=== PATIENT | male | born 1950 | race Caucasian/White ===

== ENCOUNTER → 2017-12-24 10:05 | Outpatient (CLI) | payer SELFPAY ==
--- NOTE | 2017-12-24 10:10 | ECHOCS_ITS ---
Reason For Study: valve replacement - evaluation Procedure This was a 2D Doppler, Color Flow transthoracic echocardiogram. The study was technically difficult. PT was unable to stay awake for exam, unable to stay in position for imaging. Exam performed in department. Left Ventricle Mild concentric left ventricular hypertrophy. The estimated ejection fraction is 65 %. No regional wall motion abnormalities noted. Right Ventricle Normal size and thickness. Normal systolic function. Atria The left atrium is severely enlarged. The right atrium is severely enlarged. Normal atrial septum. Mitral Valve Mild diffuse mitral valve thickening. Mild mitral annular calcification extending into the posterior leaflet. Tricuspid Valve Normal tricuspid valve. Mild (1+) eccentric tricuspid valve insufficiency. Right ventricular systolic pressure estimated to be 45 mmHg. Moderate pulmonary hypertension. Aortic Valve Trisinus/trileaflet aortic valve. Severe diffuse aortic valve thickening. Severe diffuse aortic valve calcification. Severe aortic stenosis. Peak aortic valve gradient 59 mmHg. Mean aortic valve gradient 34 mmHg. Calculated aortic valve area (continuity equation) is 0.59 cm2. Mild (1+) aortic valve insufficiency. Pulmonic Valve Normal pulmonic valve. Great Vessels Normal aortic root. Normal arch. The inferior vena cava is dilated. Inferior vena cava collapse with respiration. Pericardium/Pleural No pericardial effusion. Medication 22 gauge I.V. with prn adaptor inserted into right arm. Diluted definity 2.0ml given slow IV push to enhance endocardial definition. MMode/2D Measurements & Calculations LVIDd: 4.3 cm IVSd: 1.3 cm LVOT diam: 2.0 cm LVIDs: 3.2 cm LVPWd: 1.2 cm LVOT area: 3.2 cm2 RVDd: 3.5 cm FS: 26.9 % Ao root diam: 3.2 cm LAV(MOD-bp): 124.9 ml LA A4 area: 29.5 cm2 LA dimension: 4.8 cm LAV(MOD-bp) Indexed: 56.6 ml/m2 LAV(MOD-sp2): 128.1 ml LAV(MOD-sp4): 113.9 ml RA A4 area: 36.5 cm2 Doppler Measurements & Calculations MV E max miguel: 122.1 cm/sec Ao V2 max: 371.3 cm/sec AI max miguel: 346.8 cm/sec Ao max P.2 mmHg AI max P.1 mmHg Ao V2 mean: 275.3 cm/sec AI dec slope: 192.3 cm/sec2 Ao mean P.9 mmHg AI P1/2t: 528.2 msec Ao V2 VTI: 75.5 cm ABDIRASHID(I,D): 0.58 cm2 ABDIRASHID(V,D): 0.61 cm2 LV V1 max: 70.3 cm/sec SV(LVOT): 43.5 ml PA V2 max: 59.6 cm/sec LV V1 max P.0 mmHg LV V1 mean P.0 mmHg LV V1 mean: 48.2 cm/sec LV V1 VTI: 13.6 cm TR max miguel: 264.3 cm/sec TR max P.0 mmHg Interpretation Summary The estimated ejection fraction is 65 %. The left atrium is severely enlarged. The right atrium is severely enlarged. Mild concentric left ventricular hypertrophy. Mild (1+) eccentric tricuspid valve insufficiency. Right ventricular systolic pressure estimated to be 45 mmHg. Moderate pulmonary hypertension. Severe aortic stenosis. Peak aortic valve gradient 59 mmHg. Mean aortic valve gradient 34 mmHg. Calculated aortic valve area (continuity equation) is 0.59 cm2. Mild (1+) aortic valve insufficiency. The study was technically difficult. Contrast injection was performed. There is no comparison study available. Ordering Physician: Zach Ramirez Referring Physician: Zach Ramirez Performed By: Miriam Rogers, HECTOR, RVT
--- OUTSIDE RECORDS SUMMARY | 2017-12-24 10:53 | XMS RPT_ITS ---
:1950 Author Organization OHIP Support Name Relationship Address Phone [facility] Unavailable [address] + [facility] [place] [address] Carina KYLE MIKHAIL Unavailable [address] + [place] [address] PATRICK KYLE Unavailable [address] + [place] [address] [employer] Unavailable [address] + [place] [address] Carina KYLE MIKHAIL Unavailable [address] + [place] [address] PATRICK KYLE Unavailable [address] + [place] [address] PATRICK KYLE Unavailable . +. [place] [address] U Unavailable Unavailable Unavailable U Unavailable Unavailable Unavailable [facility] Unavailable [address] + [place] [address] MIKHAIL KYLE Unavailable [address] + [place] [address] LUCILA SHAH Unavailable [address] + [place] [address] [facility] Unavailable [address] + [facility] [place] [address] ANNE KYLEOMI Unavailable [address] + [facility] [place] [address] SHAH, LUCILA Unavailable [address] + [place] [address] Care Team Providers Name Role Phone JENSENANGELA JENSEN Attending Unavailable SHIVA CARDENAS ([facility]) Referring Unavailable SOLORIO, MACHO L Referring Unavailable SOLORIO, MACHO L Attending Unavailable SOLORIO, MACHO L Referring Unavailable MARQUISE GR Attending Unavailable BALDO CORTES Referring Unavailable SOLORIO, MACHO L Referring Unavailable SOLORIO, MACHO L Referring Unavailable SOLORIO, MACHO L Attending Unavailable SOLORIO, MACHO L Referring Unavailable SOLORIO, MACHO L Referring Unavailable SOLORIO, MACHO L Attending Unavailable SOLORIO, MACHO L Referring Unavailable SOLORIO, MACHO L Referring Unavailable SOLORIO, MACHO L Referring Unavailable SOLORIO, MACHO L Referring Unavailable Gosia Payton Attending Unavailable Solorio, Macho Primary Care Unavailable Lety Hassan Attending Unavailable Solorio, Macho Primary Care Unavailable Michelle Miguel Attending Unavailable Zach Ramirez Attending Unavailable Solorio, Macho Referring Unavailable Zach Ramirez Attending Unavailable Zach Ramirez Referring Unavailable Solorio, Macho Primary Care Unavailable Zach Ramirez Attending Unavailable Zach Ramirez Referring Unavailable Solorio, Macho Primary Care Unavailable PROBLEMS PROBLEMS DATE TYPE CONDITION / CODE ATTENDING STATUS SOURCE 12/23/2017 Unknown 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 Ramirez Active [facility] (current) use of Community anticoagulants / Hospital Z79.01(ICD-10) Repository 12/23/2017 Unknown E66.9 - Obesity, Zach Ramirez Active [facility] unspecified / Community E66.9(ICD-10) Hospital Repository 12/23/2017 Unknown F17.200 - Nicotine Zach Ramirez Active [facility] dependence, Community unspecified, Hospital uncomplicated / Repository F17.200(ICD-10) 12/23/2017 Unknown I35.0 - Nonrheumatic Zach Ramirez Active [facility] aortic (valve) Community stenosis / Hospital I35.0(ICD-10) Repository 12/23/2017 Unknown E78.5 - Zach Ramirez Active [facility] Hyperlipidemia, Community unspecified / Hospital E78.5(ICD-10) Repository 12/23/2017 Unknown I50.32 - Chronic Zach Ramirez Active [facility] diastolic [facility] (congestive) heart Hospital failure / Repository I50.32(ICD-10) 12/23/2017 Unknown I48.2 - Chronic Zach Ramirez Active [facility] atrial fibrillation Community / I48.2(ICD-10) Hospital Repository 12/23/2017 Unknown R60.9 - Edema, Zach Ramirez Active [facility] unspecified / Community R60.9(ICD-10) Hospital Repository 12/23/2017 Unknown R06.00 - Dyspnea, Zach Ramirez Active [facility] unspecified / Community R06.00(ICD-10) Hospital Repository 12/23/2017 Unknown R06.01 - Orthopnea / Zach Ramirez Active [facility] R06.01(ICD-10) [facility] Hospital Repository 02/02/2017 Active Type 2 diabetes NA Active [facility] mellitus with Clinic Main diabetic nephropathy [place] / E11.21(ICD-10) Repository 08/05/2017 Active Hyperlipidemia, NA Active [facility] unspecified / Clinic Main E78.5(ICD-10) [place] Repository 02/02/2017 Active Unknown / NA Active [facility] UNK([facility] Main Unknown) [place] Repository 01/28/2017 Active Type 2 diabetes NA Active [facility] mellitus without Clinic Main complications / [place] E11.9(ICD-10) Repository 01/06/2017 Unknown PERSONAL HISTORY OF Cebul, Lety Active [facility] MALIGNANT NEOPLASM Community OF ESOPHAGUS / Hospital Z85.01(ICD-10) Repository 01/06/2017 Unknown GASTRITIS, Cebul, Lety Active [facility] UNSPECIFIED, WITHOUT Community BLEEDING / Hospital K29.70(ICD-10) Repository 01/06/2017 Unknown DVRTCLOS OF LG INT Cebul, Lety Active [facility] W/O PERFORATION OR Community ABSCESS W/O BLEEDING Hospital / K57.30(ICD-10) Repository 01/06/2017 Unknown NONRHEUMATIC AORTIC Cebul, Lety Active [facility] (VALVE) STENOSIS / Community I35.0(ICD-10) Hospital Repository 01/06/2017 Unknown UNSPECIFIED ATRIAL Cebul, Lety Active [facility] FIBRILLATION / Community I48.91(ICD-10) Hospital Repository 01/06/2017 Unknown HEART FAILURE, Cebul, Lety Active [facility] UNSPECIFIED / Community I50.9(ICD-10) Hospital Repository 01/06/2017 Unknown HYPERLIPIDEMIA, Cebul, Lety Active [facility] UNSPECIFIED / Community E78.5(ICD-10) Hospital Repository 01/06/2017 Unknown OBSTRUCTIVE SLEEP Cebul, Lety Active [facility] APNEA (ADULT) Community (PEDIATRIC) / Hospital G47.33(ICD-10) Repository 01/06/2017 Unknown CLINICAL LIAISON (CURRENT) CarolbuLety pacheco Active [facility] USE OF Community ANTICOAGULANTS / Hospital Z79.01(ICD-10) Repository 01/06/2017 Unknown OTHER CLINICAL LIAISON Lety Hassan Active [facility] (CURRENT) DRUG Community THERAPY / Hospital Z79.899(ICD-10) Repository 01/06/2017 Unknown NICOTINE DEPENDENCE, Lety Hassan Active [facility] OTHER TOBACCO Community PRODUCT, Hospital UNCOMPLICATED / Repository F17.290(ICD-10) PROCEDURES PROCEDURES No Procedure Records FoundRESULTS RESULTS CBC W/DIFF, AUTOMATED Collected: 12/22/2017 Status: F Source: [place] 4:04 PM [facility] REPOSITORY TYPE CODE TESTS RESULT OUT OF RANGE REFERENCE UNITS LAB L100.1000 Normal 4.4-11.0 K/mm3 WBC 7.2 LAB L100.1200 Low 4.6-6.2 M/mm3 RBC 4.34 LAB L100.1300 Normal 13.0-16.5 g/dl HGB 14.1 LAB L100.1400 Normal 40-54 % HCT 42.2 LAB L100.1500 High 80-94 fL MCV 97.2 LAB L100.1600 High 27.0-32.0 pg MCH 32.5 LAB L100.1700 Normal 32-36 g/gl MCHC 33.4 LAB L100.1810 High 11.6-14.6 % RDW 15.6 CV LAB L100.1820 High 35.1-43.9 fl RDW 53.8 SD LAB L100.1900 Normal 150-450 K/mm3 PLT 152 LAB L100.2000 High 6.2-12.0 fl MPV 12.5 LAB L100.2100 Normal 47-70 % NEUT% 62.7 LAB L100.2200 Normal 19-41 % LY% 21.4 LAB L100.2300 High 0-10 % MONO% 12.1 LAB L100.2400 Normal 0-5 % EO% 2.8 LAB L100.2500 Normal 0-1 % BASO% 0.7 LAB L100.2550 Normal 0.0-0.9 % IM 0.300 GRAN % Result Comment: IG% - Immature Granulocytes (promyelocytes, myelocytes andmetamyelocytes) > 1% indicates that a LEFT SHIFT is Present. LAB L100.2620 Normal 2.0-7.7 X10 3/uL Absolute Neut 4.5 LAB L100.2720 Normal 0.83-4.51 X10 3/ul Absolute Lymph 1.54 Performed By: #### L100.0100, L300.3900, L300.4310 ####[facility] [address] [place], [address] PROTHROMBIN TIME W/INR Collected: 12/22/2017 Status: F Source: [place] 4:04 PM [facility] REPOSITORY TYPE CODE TESTS RESULT OUT OF RANGE REFERENCE UNITS LAB L300.4150 High 11.7-14.9 SECONDS PROTIME 20.4 LAB L300.4200 Normal INR 1.7 Performed By: #### L100.0100, L300.3900, L300.4310 ####[facility] [address] [place], [place], [address] PARTIAL THROMBOPLAST Collected: 12/22/2017 Status: F Source: [place] TIME 4:04 PM [facility] REPOSITORY TYPE CODE TESTS RESULT OUT OF RANGE REFERENCE UNITS LAB L300.4310 Normal 24.1-36.2 Seconds PTT 35.4 Performed By: #### L100.0100, L300.3900, L300.4310 ####[facility] [address] [place], [address] BASIC METABOLIC Collected: 12/22/2017 Status: F Source: [place] PROFILE (BMP) 4:04 PM [facility] REPOSITORY TYPE CODE TESTS RESULT OUT OF RANGE REFERENCE UNITS LAB L501.0100 High 74-106 mg/dL GLU 174 Result Comment: Fasting Glucose result greater than or equal to 126 mg/ dLsuggests DIABETES MELLITUS per A.D.A. criteria.Please note revised GLUCOSE reference range /02/2018. LAB L501.1000 Normal 7-18 mg/dL BUN 14 LAB L501.1100 Normal 0.70-1.30 mg/dL CREAT,SERUM 1.17 Result Comment: The validity of the calculated GFR AND GFRAA in patients over70 years has not been determined. Clinical correlation isessential. LAB L501.1110 Normal >60 mL/min EST GFR 66 Result Comment: Non- GFR Calc LAB L501.1115 Normal >60 mL/min EST GFR - 80 AA Result Comment: GFR Calc LAB L501.1300 Normal 10-20 RATIO BUN/CRE 12.0 LAB L501.2200 Low 8.5-10.1 mg/dL CA 8.4 LAB L501.5300 Normal 136-145 mmol/L NA 138 LAB L501.5600 Normal 3.5-5.1 mmol/L K 4.1 LAB L501.5900 Normal 98-107 mmol/L CL 99 LAB L501.6100 Normal 21.0-32.0 mmol/L CO2 32.0 LAB L501.6200 Normal 5-15 GAP 7 Performed By: #### L500.2500, L500.3400, L500.4100 ####[facility] [address] [place], [address] LIVER PROFILE Collected: 12/22/2017 Status: F Source: [place] 4:04 PM [facility] REPOSITORY TYPE CODE TESTS RESULT OUT OF RANGE REFERENCE UNITS LAB L501.1500 Normal 6.4-8.2 g/dL T 8.0 PROT LAB L501.1800 Normal 3.2-5.0 g/dL ALB 3.3 LAB L501.1950 High 2.2-4.2 g/dL GLOB 4.7 LAB L501.4100 Normal 15-37 U/L AST 22 LAB L501.4305 Normal 45-117 U/L ALK P 81 LAB L501.4405 Normal 16-61 U/L ALT 24 LAB L501.4600 Normal 0.20-1.00 mg/dL T 1.00 BILI LAB L501.4700 Normal 0.00-0.30 mg/dL D 0.27 BILI Performed By: #### L500.2500, L500.3400, L500.4100 ####[facility] [address] [place], [address] LIPID PROFILE Collected: 12/22/2017 Status: F Source: [place] 4:04 PM [facility] REPOSITORY TYPE CODE TESTS RESULT OUT OF RANGE REFERENCE UNITS LAB L501.4900 Normal 200 mg/dL CHOL 161 Result Comment: <200 mg/dL Desirable 200-240 mg/dL Borderline >240 mg/dL High Risk LAB L501.5000 Normal mg/dL TRIG 84 Result Comment: The drugs N-Acetylcysteine and Metamizole may falselydepress this assay.Serum Triglycerides Reference Interval Normal <150 mg/dL Borderline high 150 - 199 mg/ dL High 200 - 499 mg/dL Very High > or = 500 mg/dL LAB L501.6400 Low mg/dL HDL 35 Result Comment: The drugs N-Acetylcysteine and Metamizole may falselydepress this assay. Reference Range HDL <40 mg/dL Low HDL Cholesterol HDL >or= 60 mg/dL High HDL Cholesterol LAB L501.6500 Normal 0-130 mg/dL LDL 109 LAB L501.6600 Normal 5-40 mg/dL VLDL 17 Performed By: #### L500.2500, L500.3400, L500.4100 ####[facility] [address] [place], [address] CHEST PA AND LATERAL Observed: 12/22/2017 Status: F Source: [place] 3:49 PM [facility] [address] [place], [place] [address]Ocanp PA and LateralMR#: [id number] Acct: [id number]: JAYDE KYLE Jr. Rep #: [id number] : 1950 M 67 From: Robles Ugarte MDPCP: Macho Faria DO Status: PRE CLIStudy: Chest PA and Lateral Date of Exam: 12/22/17Exam# [id number] Ordering Dr: Zach Ramirez MDSTUDY: X-RAY CHESTREASON FOR EXAM: Male, 67 years old. Preoperative heart catheterization.History of atrial fibrillation. History of esophageal cancer withradiation and chemotherapy.TECHNIQUE: PA and lateral chestCOMPARISON: None. FINDINGS:Mild cardiomegaly.Normal mediastinal silhouette, ines and pleural margins.Prominent elevation of left hemidiaphragm. Associated with mild left lungbase atelectasis.Mild generalized interstitial prominence of the lungs, chronic. Acutelythe lungs appear clear. There is some hyperlucency at the apices which mayreflect underlying COPD. Correlate smoking history.There is no dense focal infiltrate, effusion, pneumothorax or focallysuspicious lesion.No acute osseous process. Mild scoliosis. Osteopenia. Mild thoracicdegenerative disc disease. RAD/Chest PA and LateralIMPRESSION:No acute cardiopulmonary process.Electronically Signed:Robles Ugarte, at 10:57 EDTTel , Service support , TJ: Zach Ramirez MD; Macho Faria DO Janitor Helper:Signed CARDIOLOGY VISIT Observed: 12/22/2017 Status: F Source: [place] REPORT 2:58 PM [facility] REPOSITORY [facility] [address] [facility]. [address] [place] [address] [phone] VISITDate of Service: 12/22/17MR#: [id number] Acct: [id number]: JAYDE KYLE Rep #: [id number]: 1950 Provider: Mauricio Jarrett/Sex: 67/M [facility] SignedIHPIChi Complaint: Atrial fibrillation, aortic stenosis, establishment of careDetails: Mr. Kyle is a very pleasant 67-year-old currently smoking gentleman,402-bsaw-kcle history, diabetic, atrial fibrillation, occasional alcohol, no previous known ordiagnosed coronary artery disease or CVA. Patient was diagnosed with atrial fibrillationaround 2009 at which time he was placed on Coumadin therapy and his diabetes was discovered aswell. In 2012 the patient was diagnosed with esophageal cancer which apparently wasnonoperative and underwent x-ray therapy and chemotherapy. His hematology oncologist is , and according to the patient he has been followed and apparently has had no recurrence.In 2012 he was diagnosed with aortic stenosis and was referred to Dr. Richmond. Apparently hewas told that his aortic stenosis was not too bad at that time. His most recent echocardiogramdated 10/01/16 however showed that his ejection fraction was normal at 65%, he had severe leftand right atrial enlargement, severe aortic stenosis with an estimated aortic valve area of 0.5cm with a peak and mean gradient of 57 and 34 mmHg respectively. He had trivial MR and 1+ TRand AI.Over the last several months the patient has had progressively worsening fatigue, shortness ofbreath, and 2 episodes of positional lightheadedness and dizziness where he almost faintedrequiring him to go to the ground at which time his symptoms resolved. He denies any anginalsymptoms. In addition he has been intermittently taking his Lasix, only when he has orthopneaor PND. He is consequently developed significant lower extremity edema and is here forevaluation. He does report that he is compliant with his medications.In our office today's blood pressure is 102/60, pulse is 86 and regular. His physical examdemonstrates 1-2+ carotid upstroke bilaterally, irregularly irregular rhythm, normal S2, a 3/6high-pitched crescendo decrescendo systolic murmur best heard at the lower left sternal borderand radiating to the carotids and clavicles. He has 2 + bilateral lower extremity edema abovehis knees. Lipids are pending. EKG dated 11/13/16 shows atrial fibrillation with right axisdeviation, possible old anterolateral wall myocardial infarction.IntakeVital Signs12/22/17 Height 5 ft 10 inIntakeVisit Reasons: SOB/EDEMA/FATIGUE/SELF REF.AllergiesNo Known Allergies Allergy (Unverified 12/22/17 14:01)Medicationsdiltiazem CD 120 mg capsule,extended release 24 hr 120 mg PO QDAY 12/21/17 [History Gkarciltb49/22/18]warfarin 5 mg tablet 5 mg PO QDAY tab 12/21/17 [History Confirmed 12/22/17]cardio Plus PO 12/22/17 [History Confirmed 12/22/17]cardio trophins PO TID 12/22/17 [History Confirmed 12/22/17]cataplex PO 12/22/17 [History Confirmed 12/22/17]furosemide 40 mg tablet 40 mg PO QDAY #30 tab 12/22/17 [Rx Confirmed 12/22/17]intenzyme forte PO 12/22/17 [History Confirmed 12/22/17]organically bound minerals PO 12/22/17 [History Confirmed 12/22/17]PFSHFamily History Mother CVA (cerebral vascular accident)Father CVA (cerebral vascular accident)Sister DiabetesBrother Heart diseaseSocial HistorySmoking Status: Current some day smokerROSConstConst: Positive for weakness and fatigue;negative for difficulty sleeping, frequent falls, headache(s) or excessive sweatingEyesEyes: Negative for loss of peripheral vision, transient loss of vision, blurry vision or doublevisionENTENT: Negative for Nosebleed/epistaxis, dizziness, headache(s) or balance problemsCardioChest Pain: NoEdema: Bilateral (BLE from knees down. Compression stockings in place)Muscle aches with walking: NoneRespRespiratory: Positive for SOB with activity;negative for SOB at rest, SOB orthopnea\SOB lying down or paroxysmal nocturnal dyspneaGIGI: Negative nausea or heartburnGUGU: Negative for hematuriaMuscMusc: Positive for muscle weakness (BLE with ambulation);negative for muscle aches/ myalgia, joint pain or balance problemsSkinSkin: Negative non- healing lesions, unusual bruising or rashNeuroNeuro: Positive for weakness;negative for blurry vision, dizziness, lightheadedness, orthostatic symptoms, double vision,frequent falls or headache(s)HemaHematologic/Lymphatic: Negative for easy bruisingEndoEndo: Positive for fatigue;negative for excessive sweating or increased thirst/drinkingPsychPsych: Negative for anxiety or depressionAllergyAllergy/Immunology: Negative for hives, Negative for rashCardiology ExamConstAppearance: cooperative, healthy appearing and no acute distressNutritional Appearance: well nourishedOrientation: alert, oriented x3 and oriented to personHeadHead: normal to inspection, atraumatic and normocephalicNose: external nose normalFace and Sinus: face symmetricMouth: oral mucosae normalEyesGeneral: appearance normal, both eyes and all related structuresEyelids: eyelids normalConjunctivae : conjunctivae normalPupils: PERRL and normal by confrontationEOM: EOM intact bilaterallyNeckNeck: normal visual inspection and full ROMCarotids: normal carotid upstrokeChestChest inspection: normal inspection of the chestAuscultation: Bilateral: Clear to AuscultationCardioPalpation: normal PMIRate: regular rateRhythm: irregularly irregularHeart sounds: S2 normalMurmur: crescendo-decrescendo, Grade 3/6, LVOT and loudGIGI: normal to inspection, no hepatosplenomegaly and bowel sounds presentNeuroGeneral: alert, oriented x3, awake, CN's II-XI intact bilaterally and moves all extremitiesSkinSkin: no rashes or lesions notedExtremitiesPulses: Normal: Right Femoral Pulse, Left Femoral Pulse, Right Dorsalis Pedis Pulse, LeftDorsalis Pedis Pulse, Right Posterior Tibial Pulse, Left Posterior Tibial Pulse, Right RadialPulse, Left Radial PulseLower Extremity Edema: None: BilateralPsychPsychological: normal affectAssessment AND Plan1. Non-rheumatic aortic stenosis I35.0Plan1. Aortic stenosis: The patient has signs and symptoms of feeling medical therapy in the faceof severe aortic stenosis as diagnosed by echocardiogram in 2017. He has worsening lowerextremity edema, fatigue, shortness of breath and positional lightheadedness and dizziness.His estimated aortic valve area was 0.57 cm .At this point I recommended the patient undergo a repeat 2D echo with Doppler to establish hisLV function, valvular status and to evaluate his other valves for possible aortic valvereplacement or T AVR. I would not recommend ELIO at this time given the patient's history ofesophageal cancer requiring chemotherapy and x-ray therapy.In addition I recommend he undergo a left and right heart catheterization with bridging withLovenox to determine if he needs concomitant bypass surgery or just simply aortic valvereplacement. If he requires no coronary bypass, I recommend referring him to [facility] for T AVR. If he requires both aortic valve replacement and T AVR [facility] the local hospitals.I had a long and thorough discussion with the patient and explained the risks/benefits of theprocedure to he and his family and they have agreed to proceed. Would not recommend Plavix atthis time as we do not have plans for PCI at this time.In addition he will start Lasix 40 mg p.o. daily and attempt to reduce his lower extremityedema. He will return office in 2 weeks time for a blood pressure check.OrdersOrders:2. Hyperlipidemia E78.5Plan2. Hyperlipidemia: Given the patient's risk factors recommend aggressive LDL reduction.Recommend obtaining a lipid profile if not already done so.OrdersOrders:3. Chronic atrial fibrillation I48.2Plan3. Atrial fibrillation: Given the patient's aortic stenosis and atrial fibrillation and severebiatrial enlargement and I believe he requires bridging of his Coumadin with subcu Lovenox.Will make arrangements for instructions for subcu Lovenox. In the meantime he will continuehis diltiazem and Coumadin.4. Return office in 6 months.This note was generated using a voice recognition system and there may be incorrect words,spelling or punctuation that were not noted when reviewing the office note prior to saving.OrdersOrders:Plan DetailOther OrdersOrders:Other MedicationsNew:Discontinued:Follow Up+6M (Ramirez)+2 weeks (BP check) CodingLevel of Care CodeOff vis,new,level 4DiagnosesNon-rheumatic aortic stenosis I35.0Hyperlipidemia E78.5Chronic atrial fibrillation I48.2CodingLevel of Care CodeOff vis,new,level 4DiagnosesNon-rheumatic aortic stenosis I35.0Hyperlipidemia E78.5Chronic atrial fibrillation I48. 1458 <Electronically signed by Zach Ramirez MD>Date [facility] Ramirez [facility] Signature: Date (if applicable)CC: Macho Faria DO 12 LEAD EKG PERFORMED Observed: 12/22/2017 Status: F Source: LISA BY MANUEL 2:03 PM [facility] REPOSITORY [place] [place], [place] [id number] Lead EKG performed by MANUEL12/22/17 1401#: [id number] Acct: [id number]: JAYDE KYLE Jr. Rep #: [id number]: 1950 67 From: Zach Ramirez MDAttalena Dr: Zach Ramirez MD Status: DEP AMBOrdering Dr: Zach Ramirez MD Date: 12/22/17Location: [facility] Sex: M CAdmitted: [facility]/12 Lead EKG performed by BMSAtrial fibrillation -irregular conduction Low voltage in limb leads. -Poor-wave progression -may be secondary to pulmonary disease consider oldnterior infarct. - Nonspecific T-abnormality. FAKYLAXM02/23/18 1415 <Electronically signed by Zach Ramirez MD>Date Zach Ramirez MDCC: Macho Faria DO Date Dictated: 12/22/17 1401Date Transcribed: 12/22/17 1401Transcriptionist:Signed PROGRESS Observed: 12/04/2017 Status: COMPLETED Source: [place] 3:09 PM [facility] REPOSITORY HNO ID: [id number]: Macho Solorio LService: (none) Author Type: PhysicianType: Progress NotesFiled: 12/04/2017 4:37 PMNote Text:Agree with belowMacho Solorio DO PROGRESS Observed: 12/04/2017 Status: COMPLETED Source: [place] 3:05 PM [facility] REPOSITORY HNO ID: [id number]: Dada Dos Santos RNService: (none)Author Type: (none)Type: Progress NotesFiled: 12/04/2017 3:07 PMNote Text:patient had inr completed at [facility] CCpatients inr is 2.7 (patients inr range is 2.0-3.0)patient is currently taking 6mg Mon,Wed,Fri and 5mg all other dayspatients last dose change was on 09/30/16 due to a low level of 1.5 (doseat that time was 6mg Mon,Fri and 5mg all other days)patient has had no changes in medication and no missed doses and no changein dietAdvised patient to continue on the same dose(s) and that they would onlybe contacted regarding dosage and follow up instructions after review withprovider, if a change is needed. Written instructions given and patientverbalized understanding. Presently scheduled in 4 weeks (pt will call toschedule) for follow up INR. PROGRESS Observed: 09/16/2017 Status: COMPLETED Source: [place] 4:04 PM [facility] REPOSITORY HNO ID: [id number]: Macho HernandezonService: (none) Author Type: PhysicianType: Progress NotesFiled: 09/16/2017 4:35 PMNote Text:Agree with Manjula Solorio DO PROGRESS Observed: 09/16/2017 Status: COMPLETED Source: [place] 3:39 PM [facility] REPOSITORY HNO ID: [id number]: Dada Dos Santos RNService: (none)Author Type: (none)Type: Progress NotesFiled: 09/16/2017 3:41 PMNote Text:patient had inr completed at [facility] CCpatients inr is 2.2 (patients inr range is 2.0-3.0)patient is currently taking 6mg Mon,Wed,Fri and 5mg all other dayspatients last dose change was on 09/30/16 due to a low level of 1.5 (doseat that time was 6mg Mon,Fri and 5mg all other days)patient has had no changes in medication and no missed doses and no changein diet.Advised patient to continue on the same dose(s) and that they would onlybe contacted regarding dosage and follow up instructions after review withprovider, if a change is needed. Written instructions given and patientverbalized understanding. Presently scheduled in 4 weeks (pt will call toschedule) for follow up INR. OBSOLETE Observed: 08/19/2017 Status: COMPLETED Source: [place] 12:00 AM [facility] REPOSITORY Refill (FAMPWS) ---------JAYDE KYLE ([id number]) 1950 MDate Time Provider Department08/19/17 SHIVA CARDENAS ([facility]) LALO During your visit today, we recorded the following information about you:Oralia Sandy DANGELO 08/19/2017 3:19 PM SignedUpcoming appointment: 02/10/18Medication request:Pending Prescriptions Disp Refills WARFARIN 1 MG TABLET 30 tablet 11 Sig: TAKE 1 TABLET ON MON, WED, FRI WITH 5MG TABLET (6MG TOTAL) MIKE: Yes Please review and advise.Allergies As of Date: 08/19/2017 Noted Allergy ReactionSEASONAL ALLERGIES 10/04/2012 8 - GI Upset Comments: headacheDate Reviewed: 08/05/2017Reviewed by: Kita Walker LPN - Fully AssessedReason for Visit: Refill Request [94]Order(s):warfarin (COUMADIN) 1 mg tabletTAKE 1 TABLET ON THU, WED, THU WITH 5MG TABLET (6MG TOTAL)Disp: 30 tabletRfl: 11Prescriptions as of 2017 Sig: WARFARIN 1 MG TABLET TAKE 1 TABLET ON THU, THU, FR* WARFARIN 5 MG TABLET TAKE 1 TABLET DAILY ON * METFORMIN ER 500 MG TABLET,EX* Take 1 tablet by mouth twice * DOXYCYCLINE MONOHYDRATE 100 M* Take 1 tablet by mouth twice * WARFARIN 5 MG TABLET TAKE 1 TABLET DAILY ON * COMPOUNDED PRESCRIPTION Organically Bound Minerals COMPOUNDED PRESCRIPTION Vitamin O dietary supplement COMPOUNDED PRESCRIPTION Cardio-Plus COMPOUNDED PRESCRIPTION Cardiotrophin PMG COMPOUNDED PRESCRIPTION Forever Arctic C COMPOUNDED PRESCRIPTION Cataplex E2 COMPOUNDED PRESCRIPTION Boswellia complex COMPOUNDED PRESCRIPTION Glucosamine Synergy FUROSEMIDE 20 MG TABLET Take 1 tablet by mouth once d* DILTIAZEM SR 120 MG 24 HR CAP Take 1 capsule by mouth once * WARFARIN 1 MG TABLET Take 6mg on Thursday, Thursday* WARFARIN 5 MG TABLET Take 6mg Thu,Thu,Thu,Sat,Sun * OTC PRODUCT [facility]: Take 4 capsules b* ALOE VERA ORAL Take 3 Tablespoonsful by mout*Problem List As Of Date 08/19/2017 Noted Resolved 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] INVALID FOR* Drug induced neutropenia [D70.2] INVALID FOR*11/23/2012 Atrial fibrillation [I48.91] INVALID FOR* 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] INVALID FOR* Hypercholesteremia [E78.00] INVALID FOR* Diabetes mellitus type 2 in nonobese (HCC) [E11*INVALID FOR* 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*INVALID FOR*07/06/2014 CHF (congestive heart failure) (HCC) [I50.9] INVALID FOR* Aortic stenosis [ I35.0] INVALID FOR* History of gastric cancer [Z85.028] INVALID FOR* Chronic atrial fibrillation (HCC) [I48.2] INVALID FOR* Chronic diastolic congestive heart failure ( HCC*INVALID FOR* Nonrheumatic aortic valve stenosis [I35.0] INVALID FOR* Positive for macroalbuminuria [R80.9] INVALID FOR* Screening for intestinal cancer [Z12.10] INVALID FOR* 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*INVALID FOR* Bilateral leg edema [R60.0] INVALID FOR* Varicose veins of both legs with edema [I83.893]INVALID FOR* Chronic anticoagulation [Z79.01] INVALID FOR* Aortic valve stenosis [I35.0] INVALID FOR* Cough [R05] INVALID FOR* Obesity, Class I, BMI 30-34.9 [E66.9] INVALID FOR*Prescriptions ordered this encounter Disp Refills Start End WARFARIN 1 MG TABLET 30 t* 11 08/21/2017 Sig: TAKE 1 TABLET ON THU, WED, THU WITH 5MG TABLET (6MG TOTAL)Medications Discontinued During This Encounter warfarin (COUMADIN) 1 mg tablet 30 t* 0 12/09/2016 08/21/2017 Sig: Take 6mg on Thursday, Thursday, and Fridays and 5mg the rest of the week Disc: Reason for discontinue is not on file. Status:Closed by MACHO SOLORIO DO on 08/21/17 HEMOGLOBIN A1C Collected: 08/05/2017 Status: F Source: [place] 3:12 PM [facility] TYPE CODE TESTS RESULT OUT OF REFERENCE UNITS RANGE LAB HGBA1C High 4.3-5.6 % Hemoglobin 9.1 A1c LAB HBA0 mg/dL Est. Average 214 Glucose Result Comment: eAG: (Estimated average glucose) is a calculated value from HgbA1c and is route sales representative of the average blood glucose level in the last 2-3 month period. Performed By: #### HBA1C, CBC, CMP, LIPB ####[facility] [address] [place], [place] [phone] CBC Collected: 08/05/2017 Status: F Source: [place] 3:12 PM [facility] REPOSITORY TYPE CODE TESTS RESULT OUT OF REFERENCE UNITS RANGE LAB WBC 3.70-11.00 k/uL WBC 8.44 LAB RBC 4.20-6.00 m/uL RBC 4.57 LAB HGB 13.0-17.0 g/dL Hemoglobin 14.3 LAB HCT 39.0-51.0 % Hematocrit 45.3 LAB MCV 80.0-100.0 fL MCV 99.1 LAB MCH 26.0-34.0 pG MCH 31.3 LAB MCHC 30.5-36.0 g/dL MCHC 31.6 LAB RDWCV High 11.5-15.0 % RDW-CV 15.8 LAB PLTCT 150-400 k/uL Platelet 225 Count LAB MPV 9.0-12.7 fL MPV 12.6 LAB ABSNUC <0.01 k/uL Absolute nRBC <0.01 Performed By: #### HBA1C, CBC, CMP, LIPB ####[facility] [address] [place], [place] [phone] COMP METABOLIC PANEL Collected: 08/05/2017 Status: F Source: [place] 3:12 PM [facility] REPOSITORY TYPE CODE TESTS RESULT OUT OF REFERENCE UNITS RANGE LAB TP 6.3-8.0 g/dL Protein, Total 7.7 LAB ALB Low 3.9-4.9 g/dL Albumin 3.7 LAB CA 8.5-10.2 mg/dL Calcium, Total 9.6 LAB TBIL 0.2-1.3 mg/dL Bilirubin, 0.8 Total LAB ALKP 36-108 U/L Alkaline 78 Phosphatase LAB AST 14-40 U/L AST 20 LAB GLU High 74-99 mg/dL Glucose 220 Result Comment: The [place] [employer] (ADA) provides guidance for cutoff values for fasting glucose and random glucose. The ADA defines fasting as no caloric intake for at least 8 hours. Fasting plasma glucose results between 100 to 125 mg/dL indicate increased risk for diabetes (prediabetes).Fasting plasma glucose results greater than or equal to 126 mg/dL meet the criteria for diagnosis of diabetes. In the absence of unequivocal hyperglycemia, results should be confirmed by repeat testing. In a patient with classic symptoms of hyperglycemia or hyperglycemic crisis, random plasma glucose results greater than or equal to 200 mg/dL meet the criteria for diagnosis of diabetes.Reference: Standards of Medical Care in Diabetes 2016 , [place] [employer] Association. Diabetes Care. 2016.39(Suppl 1). LAB BUN 9-24 mg/dL BUN 18 LAB CRET 0.73-1.22 mg/dL Creatinine 0.86 LAB NA 136-144 mmol/L Sodium 136 LAB K 3.7-5.1 mmol/L Potassium 4.6 LAB CL Low 97-105 mmol/L Chloride 95 LAB CO2 High 22-30 mmol/L CO2 32 LAB AGAP 9-18 mmol/L Anion Gap 9 LAB ALT 10-54 U/L ALT 18 LAB GFRAA eGFR- Amer. >60 LAB GFRNAA . eGFR-All Other Races >60 Result Comment: eGFR (Estimated GFR) Units of measure: mL/min/1.73 meters squaredeGFR is derived from the reexpressed MDRD Study equation using the following parameters: serum creatinine, age, gender and race. The creatinine assay has been calibrated to be traceable to IDMS.An eGFR <60 mL/min/1.73m2 for >3 months is consistent with chronic kidney disease. Refer to KDOQI guidelines for clinical interpretation.In patients with unstable renal function, e.g. those with acute kidney injury, the eGFR may not accurately reflect actual GFR. Performed By: #### HBA1C, CBC, CMP, LIPB ####[facility] [address] [place], [place] [phone] LIPID PANEL, BASIC Collected: 08/05/2017 Status: F Source: [place] 3:12 PM [facility] REPOSITORY TYPE CODE TESTS RESULT OUT OF REFERENCE UNITS RANGE LAB TRIGLY 30-149 mg/dL Triglyceride 98 LAB CHOL 100-199 mg/dL Cholesterol 180 LAB HDL Low >45 mg/dL HDL-Cholesterol 34 LAB VLDL 6-40 mg/dL VLDL Cholesterol 20 LAB LDL 60-129 mg/dL LDL-Cholesterol 126 LAB FT hrs Fasting Time 2 LAB TCHDL High 1.00-5.00 TC:HDL Ratio 5.29 LAB LDLHDL High 0.50-3.55 LDL:HDL Ratio 3.71 LAB NONHDL 90-159 mg/dL Non HDL 146 Cholesterol Performed By: #### HBA1C, CBC, CMP, LIPB ####[facility] [address] [place], [place] [phone] PROGRESS Observed: 08/05/2017 Status: COMPLETED Source: [place] 3:03 PM [facility] [place] REPOSITORY HNO ID: [id number]: Macho HernandezonService: (none) Author Type: PhysicianType: Progress NotesFiled: 08/05/2017 3:08 PMNote Text:Patient presents with:Follow Up: 3 monthsHPI:Jayde Kyle is a 67 year old male who presents to the office todayfor review of health conditions.Concerns today:Overall doing okay, admits to recent poor diet choices with increasedsugars and carbohydrates. Hx of albuminuria/nephropathy, hasn't had labsrechecked since January. No edema concerns- intermittent use of LasixChronic atrial fib, taking Coumadin as prescribed. Tolerating without SEconcerns. Chronic dyspnea with exertion unchanged.Mr. Kyle has past history of diabetes. Since our last visit hedenies excessive thirst or increased frequency of urination, chest pain ordyspnea , new or unusual visual symptoms and low sugar/hypoglycemicreactions. Follows a diabetic diet some of the time. He is compliantwith medication(s) and is tolerating med(s) without any side effects. Hereports checking his glucose on a infrequent to not at all basis schedulewith sugars in the fasting 110-160s range. Patient's last HgA1C wasHemoglobin A1C (%)Date Value01/28/2017 8. 6.8 )Last Ophthalmology exam was >12 months agoMr. Kyle reports history of hyperlipidemia. Current therapyincludes no current treatment. Denies side effects of muscle weakness orachiness. His most recent lipid panels are reviewed.Cholesterol (mg/dL)Date Value12/12/2015 145 HDL Cholesterol (mg/dL)Date Value12/11 33 LDL Cholesterol (mg/dL)Date Value12/12/2015 100 Triglyceride (mg/dL)Date Value12/12/2015 62 Mr. Kyle indicates a history of hypertension and states that he isfeeling well and denies any symptoms referable to elevated blood pressure.Specifically denies headache, chest pain, palpitations, dyspnea andperipheral edema. Patient denies any side effects of his medication (s)and is compliant with their regimen.Last 3 Encounter BP Readings: Date: BP : 08/05/2017 110/80 05/05/2017 116/82 02/10/2017 100/68He watches his diet for sodium, low fat and low cholesterol some of thetime. He does not check BP's generally. 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 Rarely cedar.Social History Main Topics Smoking status: Current Every Day Smoker Packs/day: 0.00 Years: 0.00 Types: Cigarettes, Pipe, Cigars Smokeless status: Former User Types: Chew Quit date: 1982 Comment: Quit smoking cigarettes when he was 20 years old, smokes pipe occ AND cigars daily, has used some form of tobacco x 50 years. Alcohol use: No Drug use: NoSocial History Narrative GE adenocarcinoma- poorly undiffentiated, Dr. Rose Marie Booker and Dr.Jaroch Eduardo Workman MDFAMILY HISTORYProblem Relation Age of Onset- Stroke Mother- Stroke Father- tia [OTHER] Father- Heart Brother- Diabetes Sister- Cancer Sister lymphoma x 2- pneumonia [OTHER] Maternal Grandmother- Stroke Maternal Grandfather- Cancer Paternal Grandfather- Stroke Paternal GrandmotherAllergies:ALLERGIESAllergen Reactions- Seasonal Allergies GI Upset headacheCurrent Meds:warfarin (COUMADIN) 5 mg tablet TAKE 1 TABLET DAILY ON THU , THU, THU, THU,SUNCOMPOUNDED PRESCRIPTION Glucosamine Synergydiltiazem CD (CARDIZEM CD) 120 mg 24 hr capsule Take 1 capsule by mouthonce daily.warfarin (COUMADIN) 1 mg tablet Take 6mg on Thursday, Thursday, and Fridaysand 5mg the rest of the warfarin (COUMADIN) 1 mg tablet Take 6mg on Thursday, Thursday, and Fridaysand 5mg the rest of the weekwarfarin (COUMADIN) 5 mg tablet Take 6mg Thu,Thu,Thu,Thu,Sun and 5mg allother days or as directed.doxycycline monohydrate 100 mg tablet Take 1 tablet by mouth twice daily.COMPOUNDED PRESCRIPTION Organically Bound MineralsCOMPOUNDED PRESCRIPTION Vitamin O dietary supplementCOMPOUNDED PRESCRIPTION Cardio-PlusCOMPOUNDED PRESCRIPTION Cardiotrophin PMGCOMPOUNDED PRESCRIPTION Forever Arctic CCOMPOUNDED PRESCRIPTION Cataplex [id number] PRESCRIPTION Boswellia complexfurosemide ( LASIX) 20 mg tablet Take 1 tablet by mouth once daily. Asneeded for leg swellingOTC PRODUCT [facility]: Take 4 capsules by mouth twice daily.ALOE VERA ORAL Take 3 Tablespoonsful by mouth once daily.Review of Systems: The remainder of the review of systems is negative.PE: [id number]: 110/80Pulse: 88Resp: 24Temp: 37.1 ?C (98.7 ?F) TempSrc: Right TympanicWeight: 102.5 kg (226 lb)Gen: AANDO, NAD, non-toxic appearing, Pleasant, cooperativeHEENT: NT/AC, PERRLA, EOMs intact b/l, nares clear and patent b/l, pharynxwithout erythema, exudate or lesions. Uvula midline. EACs without erythemaor debris. TMs pearly martínez with intact landmarks b/l. Hard of hearingNeck: supple, No cervical LAD, no thyromegaly, no carotid bruitsCV:irregularly irregular, 3/6 HSM RUSB harsh murmurs, no gallops, no rubs,Pulses 2+ and symmetric in UE and LE b/lLungs: normal respiratory effort, CTA b/l, no wheezing or rhonchi orrales, intermittent dry coughAbd: soft, obese, NT, ND, +BS, no hepatosplenomegalyMS: FROM all 4 extremitiesNo peripheral edema of legsNeuro: CN II-XII intact b/l, strength 5/5 b/l UE and LE, DTRs 2/4 UE andLE, sensation intact.Skin: warm, dry, intact, No rashes or lesions on exposed skin.ASSESSMENT/PLAN:1. Diabetes mellitus type 2 in nonobese (HCC) - ICD9: 250.00, ICD10: E11.9(primary diagnosis)uncontrolledPoor adherence to plan of care.- Check HgA1C, fasting glucose, fasting lipid panel, CMP and CBC- Blood glucose monitoring on a once a day schedule2. Diabetic nephropathy associated with type 2 diabetes mellitus (HCC) -ICD9: 250.40, 583.81, ICD10: E11.21uncontrolled- Check HgA1C, fasting glucose, fasting lipid panel, CMP and CBC- Blood glucose monitoring on a once a day schedule- COMP METABOLIC PANEL- HGB A1C- CBC3. Chronic anticoagulation - ICD9: V58.61, ICD10: Z79.01- continue warfarin, chronic atrial fib4. Aortic valve stenosis, etiology of cardiac valve disease unspecified - ICD9: 424.1, ICD10: I35.0- stable, follow up with Cardiologist5. Chronic atrial fibrillation (HCC) - ICD9: 427.31, ICD10: I48.2- continue warfarin, chronic atrial fib6. Hypercholesteremia - ICD9: 272.0, ICD10: E78.00- suboptimal control- Encouraged following a low fat, low cholesterol diet.- Discussed the benefits of regular aerobic exercise and weight loss.- Check fasting lipid panel7. Cough - ICD9: 786.2, ICD10: R05- normal examination, no signs of fluid overload8. Dyslipidemia - ICD9: 272.4, ICD10: E78.5- to be determined upon return of lab results- Encouraged following a low fat, low cholesterol diet.- Discussed the benefits of regular aerobic exercise and weight loss.- Check fasting lipid panel- LIPID PANEL BASIC9. Obesity, Class I, BMI 30-34.9 - ICD9: 278.00, ICD10: E66.9- need for regular weight loss and diet changesRosales Flores ER if develops chest pain, shortness of breath, or severe worsening ofsymptoms.Discussed risks, benefits, alternatives , and potential side effects ofmedications.Patient expressed understanding and agreed with the plan.Macho Solorio DO[address] [place], [place] [address]Oasfu: [phone]: [phone] CNOV Observed: 08/05/2017 Status: COMPLETED Source: [place] 2:20 PM [facility] REPOSITORY Office Visit (FAMPWS) ---------JAYDE KYLE ([id number]) 1950 MDate Time Provider Department08/05/17 2:20 PM MACHO SOLORIO FAMPWS During your visit today, we recorded the following information about you: Temperature Pulse Respiration Blood pressure 98.7 degrees 88/minute 24/minute 110/80 Weight 102.5 kgMacho Solorio DO 08/05/2017 3:08 PM SignedPatient presents with:Follow Up: 3 monthsHPI:Jayde Kyle is a 67 year old male who presents to the office today forreview of health conditions.Concerns today:Overall doing okay, admits to recent poor diet choices with increased sugarsand carbohydrates. Hx of albuminuria/nephropathy, hasn't had labs recheckedsince January. No edema concerns- intermittent use of LasixChronic atrial fib, taking Coumadin as prescribed. Tolerating without SEconcerns. Chronic dyspnea with exertion unchanged.Mr. Kyle has past history of diabetes. Since our last visit he deniesexcessive thirst or increased frequency of urination, chest pain or dyspnea ,new or unusual visual symptoms and low sugar/hypoglycemic reactions. Followsa diabetic diet some of the time. He is compliant with medication(s) and istolerating med(s) without any side effects. He reports checking his glucoseon a infrequent to not at all basis schedule with sugars in the -915e range. Patient's last HgA1C wasHemoglobin A1C (%)Date Value01/28/2017 8. 6.8--------- -)Last Ophthalmology exam was ANDgt;12 months agoMr. Kyle reports history of hyperlipidemia. Current therapy includes nocurrent treatment. Denies side effects of muscle weakness or achiness. Hismost recent lipid panels are reviewed.Cholesterol (mg/dL)Date Value12/12/2015 145 HDL Cholesterol ( mg/dL)Date Value12/12/2015 33 LDL Cholesterol (mg/dL)Date Value12/12/2015 100 Triglyceride (mg/dL)Date Value12/12/2015 62 Mr. Kyle indicates a history of hypertension and states that he isfeeling well and denies any symptoms referable to elevated blood pressure.Specifically denies headache, chest pain, palpitations, dyspnea and peripheraledema. Patient denies any side effects of his medication(s) and is compliantwith their regimen.Last 3 Encounter BP Readings: Date: BP: 08/05/2017 110/80 05/05/2017 116/82 02/10/2017 100/68He watches his diet for sodium, low fat and low cholesterol some of the time.He does not check BP's generally. 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 Rarely cedar.Social History Main Topics Smoking status: Current Every Day Smoker Packs/day: 0.00 Years: 0.00 Types: Cigarettes, Pipe, Cigars Smokeless status: Former User Types: Chew Quit date: 09/03/1982 Comment: Quit smoking cigarettes when he was 20 years old, smokes pipe occ ANDamp; cigars daily, has used some form of tobacco x 50 years. Alcohol use: No Drug use: NoSocial History Narrative GE adenocarcinoma- poorly undiffentiated, Dr. Rose Marie Booker and Dr. Kacy Workman MDFAMILY HISTORYProblem Relation Age of Onset- Stroke Mother- Stroke Father - tia [OTHER] Father- Heart Brother- Diabetes Sister- Cancer Sister lymphoma x 2- pneumonia [OTHER] Maternal Grandmother- Stroke Maternal Grandfather- Cancer Paternal Grandfather- Stroke Paternal GrandmotherAllergies:ALLERGIESAllergen Reactions- Seasonal Allergies GI Upset headacheCurrent Meds:warfarin ( COUMADIN) 5 mg tablet TAKE 1 TABLET DAILY ON THU, THU, THU, SAT, SUNCOMPOUNDED PRESCRIPTION Glucosamine Synergydiltiazem CD (CARDIZEM CD) 120 mg 24 hr capsule Take 1 capsule by mouth oncedaily.warfarin (COUMADIN) 1 mg tablet Take 6mg on Thursday, Thursday, and Fridays and5mg the rest of the weekwarfarin (COUMADIN) 1 mg tablet Take 6mg on Thursday, Thursday, and Fridays and5mg the rest of the weekwarfarin (COUMADIN) 5 mg tablet Take 6mg Thu,Thu,Thu,Sat,Sun and 5mg all otherdays or as directed.doxycycline monohydrate 100 mg tablet Take 1 tablet by mouth twice daily.COMPOUNDED PRESCRIPTION Organically Bound MineralsCOMPOUNDED PRESCRIPTION Vitamin O dietary supplementCOMPOUNDED PRESCRIPTION Cardio-PlusCOMPOUNDED PRESCRIPTION Cardiotrophin PMGCOMPOUNDED PRESCRIPTION [facility] CCOMPOUNDED PRESCRIPTION Cataplex [id number] PRESCRIPTION Boswellia complexfurosemide (LASIX) 20 mg tablet Take 1 tablet by mouth once daily. As neededfor leg swellingOTC PRODUCT [facility] Sea: Take 4 capsules by mouth twice daily.ALOE VERA ORAL Take 3 Tablespoonsful by mouth once daily.Review of Systems: The remainder of the review of systems is negative.PE: [id number]: 110/80Pulse: 88Resp: 24Temp: 37.1 ?C (98.7 ?F)TempSrc: Right TympanicWeight: 102.5 kg (226 lb)Gen: AANDamp;O, NAD, non-toxic appearing, Pleasant, cooperativeHEENT: NT/AC , PERRLA, EOMs intact b/l, nares clear and patent b/l, pharynxwithout erythema, exudate or lesions. Uvula midline. EACs without erythema ordebris. TMs pearly martínez with intact landmarks b/l. Hard of hearingNeck: supple, No cervical LAD, no thyromegaly, no carotid bruitsCV:irregularly irregular, 3/6 HSM RUSB harsh murmurs, no gallops, no rubs,Pulses 2+ and symmetric in UE and LE b/lLungs: normal respiratory effort, CTA b/l, no wheezing or rhonchi or rales,intermittent dry coughAbd: soft, obese, NT, ND, +BS, no hepatosplenomegalyMS: FROM all 4 extremitiesNo peripheral edema of legsNeuro: CN II-XII intact b/l, strength 5/ 5 b/l UE and LE, DTRs 2/4 UE and LE,sensation intact.Skin: warm, dry, intact, No rashes or lesions on exposed skin.ASSESSMENT/PLAN:1. Diabetes mellitus type 2 in nonobese (HCC) - ICD9: 250.00, ICD10: E11.9( primary diagnosis)uncontrolledPoor adherence to plan of care.- Check HgA1C, fasting glucose, fasting lipid panel , CMP and CBC- Blood glucose monitoring on a once a day schedule2. Diabetic nephropathy associated with type 2 diabetes mellitus (HCC) - ICD9:250.40, 583.81, ICD10: E11.21uncontrolled- Check HgA1C, fasting glucose, fasting lipid panel, CMP and CBC- Blood glucose monitoring on a once a day schedule- COMP METABOLIC PANEL- HGB A1C- CBC3. Chronic anticoagulation - ICD9: V58.61, ICD10: Z79.01- continue warfarin, chronic atrial fib4. Aortic valve stenosis, etiology of cardiac valve disease unspecified - ICD9: 424.1, ICD10: I35.0- stable, follow up with Cardiologist5. Chronic atrial fibrillation (HCC) - ICD9: 427.31 , ICD10: I48.2- continue warfarin, chronic atrial fib6. Hypercholesteremia - ICD9: 272.0, ICD10: E78.00 - suboptimal control- Encouraged following a low fat, low cholesterol diet.- Discussed the benefits of regular aerobic exercise and weight loss.- Check fasting lipid panel7. Cough - ICD9: 786.2, ICD10: R05 - normal examination, no signs of fluid overload8. Dyslipidemia - ICD9: 272.4, ICD10: E78.5- to be determined upon return of lab results- Encouraged following a low fat, low cholesterol diet.- Discussed the benefits of regular aerobic exercise and weight loss.- Check fasting lipid panel- LIPID PANEL BASIC9. Obesity, Class I, BMI 30-34.9 - ICD9: 278.00, ICD10: E66.9- need for regular weight loss and diet changesRosales Flores ER if develops chest pain, shortness of breath, or severe worsening ofsymptoms.Discussed risks, benefits, alternatives, and potential side effects ofmedications.Patient expressed understanding and agreed with the plan.Macho Solorio [address] [place], [place] [address]Kgsff: [phone]: Jitbmsaay Provider: MACHO SOLORIO [[id number]]Allergies As of Date: 08/05/2017 Noted Allergy ReactionSEASONAL ALLERGIES 10/04/2012 8 - GI Upset Comments: headacheDate Reviewed: 08/05/2017Reviewed by: Kita Newell LPN - Fully AssessedReason for Visit: Follow Up [171] Cmt: 3 monthsPrimary Visit Diagnosis:Diabetes mellitus type 2 in nonobese (HCC) [E11.9 ] Other Visit Diagnoses:Diabetic nephropathy associated with type 2 diabetes mellitus (HCC) [E11.21] Chronic anticoagulation [Z79.01] Aortic valve stenosis, etiology of cardiac valve disease unspecified [I35.0] Chronic atrial fibrillation (HCC) [I48.2] Hypercholesteremia [E78.00] Cough [R05] Dyslipidemia [E78.5] Obesity, Class I, BMI 30-34.9 [E66.9]Order(s):COMP METABOLIC PANEL [SQCMP] Order #: [id number] FUTURE HGB A1C [KRQFQ7W] Order #: [id number] FUTURE CBC [SQCBC] Order #: [id number] FUTURE LIPID PANEL BASIC [SQLIPB] Order #: [id number] FUTUREPrescriptions as of 08/05/2017 Sig: WARFARIN 5 MG TABLET TAKE 1 TABLET DAILY ON * COMPOUNDED PRESCRIPTION Glucosamine Synergy DILTIAZEM SR 120 MG 24 HR CAP Take 1 capsule by mouth once * WARFARIN 1 MG TABLET Take 6mg on Thursday, Thursday* WARFARIN 1 MG TABLET Take 6mg on Thursday, Thursday* WARFARIN 5 MG TABLET Take 6mg Thu,Thu,Thu,Sat,Sun * DOXYCYCLINE MONOHYDRATE 100 M* Take 1 tablet by mouth twice * COMPOUNDED PRESCRIPTION Organically Bound Minerals COMPOUNDED PRESCRIPTION Vitamin O dietary supplement COMPOUNDED PRESCRIPTION Cardio-Plus COMPOUNDED PRESCRIPTION Cardiotrophin PMG COMPOUNDED PRESCRIPTION Forever Arctic C COMPOUNDED PRESCRIPTION Cataplex E2 COMPOUNDED PRESCRIPTION Boswellia complex FUROSEMIDE 20 MG TABLET Take 1 tablet by mouth once d* OTC PRODUCT [facility]: Take 4 capsules b* ALOE VERA ORAL Take 3 Tablespoonsful by mout*Medication notes this encounter COMPOUNDED PRESCRIPTION >> Kita Newell LPN 08/05/2017 2:26 PM >> KITA NEWELL BOTTOM STAINER ThuAug 05, 2017 2:26 PM Finished COMPOUNDED PRESCRIPTION >> Kita Newell BOTTOM STAINER 08/05/2017 2:26 PM >> KITA NEWELL LORETO ThuAug 05, 2017 2:26 PM FinishedProblem List As Of Date 08/05/2017 Noted Resolved 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] INVALID FOR* Drug induced neutropenia [D70.2] INVALID FOR*11/23/2012 Atrial fibrillation [I48.91] INVALID FOR* 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] INVALID FOR* Hypercholesteremia [E78.00] INVALID FOR* Diabetes mellitus type 2 in nonobese (HCC) [E11*INVALID FOR* 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*INVALID FOR* 07/06/2014 CHF (congestive heart failure) (HCC) [I50.9] INVALID FOR* Aortic stenosis [I35.0] INVALID FOR* History of gastric cancer [Z85.028] INVALID FOR* Chronic atrial fibrillation (HCC) [I48.2] INVALID FOR* Chronic diastolic congestive heart failure (HCC*INVALID FOR* Nonrheumatic aortic valve stenosis [I35.0] INVALID FOR* Positive for macroalbuminuria [R80.9] INVALID FOR* Screening for intestinal cancer [Z12.10] INVALID FOR* 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*INVALID FOR* Bilateral leg edema [R60.0] INVALID FOR* Varicose veins of both legs with edema [I83.893]INVALID FOR* Chronic anticoagulation [Z79.01] INVALID FOR* Aortic valve stenosis [I35.0] INVALID FOR* Cough [R05] INVALID FOR* Obesity, Class I, BMI 30-34.9 [E66.9] INVALID FOR* Status:Closed by MACHO SOLORIO DO on 08/05/17 PROGRESS Observed: 07/07/2017 Status: COMPLETED Source: [place] 4:41 PM [facility] REPOSITORY HNO ID: [id number]: Macho HernandezonService: (none) Author Type: PhysicianType: Progress NotesFiled: 07/07/2017 4:53 PMNote Text:Agree with Manjula Solorio DO HOSP Observed: 07/07/2017 Status: COMPLETED Source: [place] 3:45 PM [facility] REPOSITORY Anticoagulation Visit (COUMWS) ---------JAYDE KYLE ([id number]) 1950 MDate Time Provider Pxdnihftah16/5/17 3:45 PM [facility] During your visit today, we recorded the following information about you:Dada Dos Santos RN 07/07/2017 3:17 PM Signedpatient had inr completed [facility] CCpatients inr is 2.4 (patients inr range is 2.0-3.0)patient is currently taking 6mg Mon,Wed,Fri and 5mg all other dayspatients last dose change was on 09/04/16 due to a low level of 1.5 (dose at thattime was 6mg Mon,Fri and 5mg all other days)patient has had no changes in medication and no change in dietAdvised patient to continue on the same dose(s) and that they would only becontacted regarding dosage and follow up instructions after review withprovider, if a change is needed. Written instructions given and patientverbalized understanding. Presently scheduled in 4 weeks (pt will call toschedule) for follow up INR.Macho Solorio DO 07/07/2017 4:53 PM SignedAgree with Rosalee Skaggs Provider: MACHO SOLORIO [[id number]]Allergies As of Date: 07/07/2017 Noted Allergy ReactionSEASONAL ALLERGIES 10/04/2012 8 - GI Upset Comments: headacheDate Reviewed: 07/07/2017Reviewed by: Dada Dos Santos RN - Fully AssessedReason for Visit : Anticoagulation [8]Primary Visit Diagnosis:Atrial fibrillation, unspecified type (HCC) [I48.91] Order(s):INR (POC) [[id number]] Order #: [id number]. #:[id number] as of 07/07/2017 Sig: DOXYCYCLINE MONOHYDRATE 100 M* Take 1 tablet by mouth twice * WARFARIN 5 MG TABLET TAKE 1 TABLET DAILY ON * COMPOUNDED PRESCRIPTION Organ[employer] Min[employer] COMPOUNDED PRESCRIPTION Vitamin O dietary supplement COMPOUNDED PRESCRIPTION Cardio-Plus COMPOUNDED PRESCRIPTION Cardiotrophin PMG COMPOUNDED PRESCRIPTION Forever [facility] C COMPOUNDED PRESCRIPTION Cataplex E2 COMPOUNDED PRESCRIPTION Boswellia complex COMPOUNDED PRESCRIPTION Glucosamine Synergy FUROSEMIDE 20 MG TABLET Take 1 tablet by mouth once d* DILTIAZEM SR 120 MG 24 HR CAP Take 1 capsule by mouth once * WARFARIN 1 MG TABLET Take 6mg on Thursday, Thursday* WARFARIN 1 MG TABLET Take 6mg on Thursday, Thursday* WARFARIN 5 MG TABLET Take 6mg Thu,Thu,Thu,Sat,Sun * OTC PRODUCT [facility]: Take 4 capsules b* ALOE VERA ORAL Take 3 Tablespoonsful by mout*Problem List As Of Date 07/07/2017 Noted Resolved 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] INVALID FOR* Drug induced neutropenia [D70.2] INVALID FOR*11/23 Atrial fibrillation [I48.91] INVALID FOR* 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] INVALID FOR* Hypercholesteremia [E78.00] INVALID FOR* Diabetes mellitus type 2 in nonobese (HCC) [E11*INVALID FOR* 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*INVALID FOR* 07/06/2014 CHF (congestive heart failure) (HCC) [I50.9] INVALID FOR* Aortic stenosis [I35.0] INVALID FOR* History of gastric cancer [Z85.028] INVALID FOR* Chronic atrial fibrillation (HCC) [I48.2] INVALID FOR* Chronic diastolic congestive heart failure (HCC*INVALID FOR* Nonrheumatic aortic valve stenosis [I35.0] INVALID FOR* Positive for macroalbuminuria [R80.9] INVALID FOR* Screening for intestinal cancer [Z12.10] INVALID FOR* 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*INVALID FOR* Bilateral leg edema [R60.0] INVALID FOR* Varicose veins of both legs with edema [I83.893]INVALID FOR* Chronic anticoagulation [Z79.01] INVALID FOR*Follow-up and Disposition History RecordedEncounter Number: [id number] Status:Closed by DADA DOS SANTOS RN on 07/07/17 PROGRESS Observed: 07/07/2017 Status: COMPLETED Source: [place] 3:16 PM [facility] REPOSITORY HNO ID: [id number]: Dada Dos Santos RNService: (none)Author Type: (none)Type: Progress NotesFiled: 07/07/2017 3:17 PMNote Text:[facility] inr range is 2.0-3.0)patient is currently taking 6mg Mon,Wed,Fri and 5mg all other dayspatients last dose change was on 09/04/16 due to a low level of 1.5 (dose atthat time was 6mg Mon,Fri and 5mg all other days)patient has had no changes in medication and no change in dietAdvised patient to continue on the same dose(s) and that they would onlybe contacted regarding dosage and follow up instructions after review withprovider , if a change is needed. Written instructions given and patientverbalized understanding. Presently scheduled in 4 weeks [facility]. 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 No fevers or chills ,has been fatigued , + sick contacts with grandchildren.Tobacco use, still smoking cigars, knows needs to quit, working on a planand likely to use nicoderm patches, hasn't set a date yet.Mr. Kyle has past history of diabetes. Since our last visit hedenies excessive thirst or increased frequency of urination, chest pain ordyspnea , new or unusual visual symptoms and low sugar/hypoglycemicreactions. Follows a diabetic diet some of the time. He is dietcontrolled. He reports checking his glucose on a infrequent to not atall basis schedule . Patient's last HgA1C wasHemoglobin A1C (%)Date Value01/28/2017 8. 6.8 )Last Ophthalmology exam was >12 months agoMr. Kyle reports history of hyperlipidemia. Current therapyincludes no current treatment. His most recent lipid panels are reviewed.Cholesterol (mg/dL )Date Value12/12/2015 145 HDL Cholesterol (mg/dL)Date Value12/12/2015 33 LDL Cholesterol (mg/dL)Date Value12/12/2015 100 Triglyceride (mg/dL)Date Value12/12/2015 62 Mr. Kyle indicates a history of hypertension and states that he isfeeling well and denies any symptoms referable to elevated blood pressure.Specifically denies headache, chest pain, palpitations, dyspnea andperipheral edema. Patient denies any side effects of his medication (s)and is compliant with their regimen.Last 3 Encounter BP Readings: Date: BP : 05/05/2017 116/82 02/10/2017 100/68 02/02/2017 100/60He watches his diet for sodium, low fat and low cholesterol some of thetime. He does not check BP's generally. 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 Rarely cedar.Social History Main Topics Smoking status: Current Every Day Smoker Packs/day: 0.00 Years: 0.00 Types: Cigarettes, Pipe, Cigars Smokeless status: Former User Types: Chew Quit date: 1982 Comment: Quit smoking cigarettes when he was 20 years old, smokes pipe occ AND cigars daily, has used some form of tobacco x 50 years. Alcohol use: No Drug use: NoSocial History Narrative GE adenocarcinoma- poorly undiffentiated, Dr. Rose Marie Booker and Dr.Jaroch Eduardo Workman MDFAMILY HISTORYProblem Relation Age of Onset- Stroke Mother- Stroke Father- tia [OTHER] Father- Heart Brother- Diabetes Sister- Cancer Sister lymphoma x 2- pneumonia [OTHER] Maternal Grandmother- Stroke Maternal Grandfather- Cancer Paternal Grandfather- Stroke Paternal GrandmotherAllergies:ALLERGIESAllergen Reactions- Seasonal Allergies GI Upset headacheCurrent Meds:warfarin (COUMADIN) 5 mg tablet TAKE 1 TABLET DAILY ON THU , THU, THU, SAT,SUNCOMPOUNDED PRESCRIPTION Organically Bound MineralsCOMPOUNDED PRESCRIPTION Vitamin O dietary supplementCOMPOUNDED PRESCRIPTION Cardio-PlusCOMPOUNDED PRESCRIPTION Cardiotrophin PMGCOMPOUNDED PRESCRIPTION Forever Arctic CCOMPOUNDED PRESCRIPTION Cataplex [id number] PRESCRIPTION Boswellia complexCOMPOUNDED PRESCRIPTION Glucosamine Synergyfurosemide (LASIX) 20 mg tablet Take 1 tablet by mouth once daily. Asneeded for leg swellingdiltiazem CD (CARDIZEM CD) 120 mg 24 hr capsule Take 1 capsule by mouthonce daily.warfarin (COUMADIN) 1 mg tablet Take 6mg on Thursday, Thursday, and Fridaysand 5mg the rest of the weekwarfarin (COUMADIN) 1 mg tablet Take 6mg on Thursday, Thursday, and Fridaysand 5mg the rest of the weekwarfarin (COUMADIN) 5 mg tablet Take 6mg Thu,Thu,Thu,Sat,Thu and 5mg allother days or as directed.OTC PRODUCT [place]: Take 4 capsules by mouth twice daily.ALOE VERA ORAL Take 3 Tablespoonsful by mouth once daily.Review of Systems: The remainder of the review of systems is negative.PE: [id number]: 116/82Pulse: 80Resp: 16Temp: 36.8 ?C (98.2 ?F)TempSrc: Right TympanicWeight: 100.2 kg (221 lb)Gen: AANDO, NAD, non-toxic appearing, Pleasant, cooperative, coughingHEENT: NT/AC, PERRLA, EOMs intact b/l, nares clear and patent b/l, pharynxwithout erythema, exudate or lesions. Uvula midline. MMM, EACs withouterythema or debris. TMs pearly martínez with intact landmarks b/l.Neck: supple, No cervical LAD, no thyromegaly, no carotid bruitsCV: RRR, normal S1 and S2, no murmurs, no gallops, no rubs, Pulses 2+ andsymmetric in UE and LE b/lLungs: normal respiratory effort, coughing, LLL rhonchi intermittent, scattered wheezingAbd: soft, obese, NT, ND, +BS, no hepatosplenomegalyMS: FROM all 4 extremities except right shoudler with pain lateralshoulder with palpation and abduction, + impingement signs, No obviousshoulder deformity or swelling or bruisingNeuro: CN II-XII intact b/l, strength 5/5 b/l UE and LE, DTRs 2/4 UE andLE, sensation intact.Skin: warm, dry, intact, No rashes or lesions on exposed skin.Trace non pitting b/l leg edemaUNIVERSAL PROTOCOL / SAFETY CHECKLISTProcedure to be performed: right shoulder corticosteroid joint injectionSign in Communication: CompletedTime Out: Team Confirms the Correct Patient, Correct Procedure, CorrectSite and Site Marking, Correct Position (if applicable), Prep and Dry Time(if applicable). Time: 1545Affirmation of Time Out: YESSign Out Discussion: CompletedShoshana Floresjection of 2 cc of 2% lidocaine plain, 1 cc of Kenalog (40 mg) was givento the right shoulder joint by posterior lateral approach after area wascleaned and sterilized with 3 povidine-iodine washes. Patient advised toice 10 minutes every two hours after the injection for the next 24 hoursand prn NSAIDS. Tolerated procedure well without complications.ASSESSMENT/PLAN:1. Rhonchi - ICD9: 786.7, ICD10: R09.89 (primary diagnosis)- rx as below, he doesn't want CXR today, f/u in office if symptoms worsen- DOXYCYCLINE MONOHYDRATE 100 MG TABLET2. Cough - ICD9: 786.2, ICD10: R05- rx as below, need for recheck INR in 3-5 days.- DOXYCYCLINE MONOHYDRATE 100 MG TABLET3. Diabetic nephropathy associated with type 2 diabetes mellitus (HCC) - ICD9: 250.40, 583.81, ICD10: E11.21uncontrolled- Check HgA1C, fasting glucose and fasting lipid panel- Blood glucose monitoring on a once a day schedule4. Varicose veins of both legs with edema - ICD9: 454.8, ICD10: I83.893- stable5. Chronic anticoagulation - ICD9: V58.61, ICD10: Z79.01- continue to f/u with INR in 3-5 days since on antibiotic currently6. Aortic valve stenosis, etiology of cardiac valve disease unspecified -ICD9: 424.1, ICD10: I35.0- stable7. Acute pain of right shoulder - ICD9: 719.41, ICD10: M25.511- given corticosteroid injection in shoulder today without complication,tolerated well, aware of r/b/i and agreed with injection in office , f/uprn8. Acute shoulder bursitis, right - ICD9: 726.10, ICD10: M75.51- see aboveJordan L Solorio, DOTo ER if develops chest pain, shortness of breath, or severe worsening ofsymptoms.Discussed risks, benefits, alternatives, and potential side effects ofmedications.Patient expressed understanding and agreed with the plan.Macho Solorio [id number] [place] [address]Yjvni: [phone]: CNOV Observed: 05/05/2017 Status: COMPLETED Source: [place] 3:00 PM [facility] REPOSITORY Office Visit (FAMPWS) ---------ANABELLAJAYDE J ([id number]) 1950 MDate Time Provider Xzlxctocwx65/3/17 3:00 PM [facility] During your visit today, we recorded the following information about you: Temperature Pulse Respiration Blood pressure 98.2 degrees 80/minute 16/minute 116/82 Weight 100.2 kgJosaurav Solorio DO 05/05/2017 4:33 PM SignedPatient presents with:Follow Up: 3 monthsHPI:Jayde Kyle is a 67 year old male who presents to the office today forreview of health conditions.Concerns today:Afib, hx of CHF, taking Coumadin as prescribed, no current concerns withbleeding or change in bruisingRight shoulder pain, started about 3 weeks ago, overuse in his shop as well aspushed down by his horse while walking beside his horse and landed againstright shoulder, pain outer shoulder area with abduction activity. No swellingor bruising.Cough, present for the last 1-2 weeks, non productive, seems to be worsening,denies CP or palpitations or hemoptysis. No fevers or chills , has beenfatigued, + sick contacts with grandchildren.Tobacco use, still smoking cigars, knows needs to quit, working on a plan andlikely to use nicoderm patches, hasn't set a date yet.Mr. Kyle has past history of diabetes. Since our last visit he deniesexcessive thirst or increased frequency of urination, chest pain or dyspnea ,new or unusual visual symptoms and low sugar/hypoglycemic reactions. Followsa diabetic diet some of the time. He is diet controlled. He reports checkinghis glucose on a infrequent to not at all basis schedule . Patient's gfiyJvR2H wasHemoglobin A1C (%)Date Value01/28/2017 8. 6.8 )Last Ophthalmology exam was ANDgt;12 months agoMr. Kyle reports history of hyperlipidemia. Current therapy includes nocurrent treatment. His most recent lipid panels are reviewed.Cholesterol (mg/dL)Date Value12/12/2015 145 HDL Cholesterol (mg/dL)Date Value12/12/2015 33---- ------LDL Cholesterol (mg/dL)Date Value12/12/2015 100 Triglyceride (mg/dL)Date Value2015 62 Mr. Kyle indicates a history of hypertension and states that he isfeeling well and denies any symptoms referable to elevated blood pressure.Specifically denies headache, chest pain, palpitations, dyspnea and peripheraledema. Patient denies any side effects of his medication(s) and is compliantwith their regimen.Last 3 Encounter BP Readings: Date: BP: 05/05/2017 116/82 02/10/2017 100/68 02/02/2017 100/60He watches his diet for sodium, low fat and low cholesterol some of the time.He does not check BP's generally. 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 Rarely cedar.Social History Main Topics Smoking status: Current Every Day Smoker Packs/day: 0.00 Years: 0.00 Types: Cigarettes, Pipe, Cigars Smokeless status: Former User Types: Chew Quit date: 09/03/1982 Comment: Quit smoking cigarettes when he was 20 years old, smokes pipe occ ANDamp; cigars daily, has used some form of tobacco x 50 years. Alcohol use: No Drug use: NoSocial History Narrative GE adenocarcinoma- poorly undiffentiated, Dr. Rose Marie Booker and Dr. Kacy Workman MDFAMILY HISTORYProblem Relation Age of Onset- Stroke Mother- Stroke Father- tia [OTHER] Father- Heart Brother- Diabetes Sister- Cancer Sister lymphoma x 2- pneumonia [OTHER] Maternal Grandmother- Stroke Maternal Grandfather- Cancer Paternal Grandfather- Stroke Paternal GrandmotherAllergies:ALLERGIESAllergen Reactions- Seasonal Allergies GI Upset headacheCurrent Meds:warfarin (COUMADIN) 5 mg tablet TAKE 1 TABLET DAILY ON THU, THU, THU, SAT, SUNCOMPOUNDED PRESCRIPTION Organically Bound MineralsCOMPOUNDED PRESCRIPTION Vitamin O dietary supplementCOMPOUNDED PRESCRIPTION Cardio-PlusCOMPOUNDED PRESCRIPTION Cardiotrophin PMGCOMPOUNDED PRESCRIPTION Fore[employer] CCOMPOUNDED PRESCRIPTION Cataplex [id number] PRESCRIPTION Boswellia complexCOMPOUNDED PRESCRIPTION Glucosamine Synergyfurosemide (LASIX) 20 mg tablet Take 1 tablet by mouth once daily. As neededfor leg swellingdiltiazem CD (CARDIZEM CD) 120 mg 24 hr capsule Take 1 capsule by mouth oncedaily.warfarin (COUMADIN) 1 mg tablet Take 6mg on Thursday, Thursday, and Fridays and5mg the rest of the weekwarfarin (COUMADIN) 1 mg tablet Take 6mg on Thursday, Thursday, and Fridays and5mg the rest of the weekwarfarin (COUMADIN) 5 mg tablet Take 6mg Thu,Thu,Thu,Sat,Sun and 5mg all otherdays or as directed.OTC PRODUCT [place]: Take 4 capsules by mouth twice daily.ALOE VERA ORAL Take 3 Tablespoonsful by mouth once daily.Review of Systems: The remainder of the review of systems is negative.PE: [id number]: 116/82Pulse: 80Resp: 16Temp: 36.8 ?C (98.2 ?F)TempSrc: Right TympanicWeight: 100.2 kg (221 lb)Gen: AANDamp;O, NAD, non-toxic appearing, Pleasant, cooperative, coughingHEENT: NT/AC, PERRLA, EOMs intact b/l, nares clear and patent b/l, pharynxwithout erythema, exudate or lesions. Uvula midline. MMM, EACs without erythemaor debris. TMs pearly martínez with intact landmarks b/l.Neck : supple, No cervical LAD, no thyromegaly, no carotid bruitsCV: RRR, normal S1 and S2, no murmurs, no gallops, no rubs, Pulses 2+ andsymmetric in UE and LE b/lLungs: normal respiratory effort, coughing, LLL rhonchi intermittent, scatteredwheezingAbd: soft, obese, NT, ND, +BS, no hepatosplenomegalyMS: FROM all 4 extremities except right shoudler with pain lateral shoulderwith palpation and abduction, + impingement signs, No obvious shoulderdeformity or swelling or bruisingNeuro: CN II-XII intact b/l, strength 5/5 b/l UE and LE, DTRs 2/4 UE and LE,sensation intact.Skin: warm, dry, intact, No rashes or lesions on exposed skin.Trace non pitting b/l leg edemaUNIVERSAL PROTOCOL / SAFETY CHECKLISTProcedure to be performed: right shoulder corticosteroid joint injectionSign in Communication: CompletedTime Out: Team Confirms the Correct Patient, Correct Procedure, Correct Siteand Site Marking, Correct Position (if applicable), Prep and Dry Time (ifapplicable). Time: 1545Affirmation of Time Out: YESSign Out Discussion: CompletedShoshana Floresjection of 2 cc of 2% lidocaine plain, 1 cc of Kenalog (40 mg) was given tothe right shoulder joint by posterior lateral approach after area was cleanedand sterilized with 3 povidine -iodine washes. Patient advised to ice 10minutes every two hours after the injection for the next 24 hours and prnNSAIDS. Tolerated procedure well without complications.ASSESSMENT/PLAN:1. Rhonchi - ICD9: 786.7, ICD10: R09.89 (primary diagnosis)- rx as below, he doesn't want CXR today, f/u in office if symptoms worsen- DOXYCYCLINE MONOHYDRATE 100 MG TABLET2. Cough - ICD9: 786.2, ICD10: R05- rx as below, need for recheck INR in 3-5 days.- DOXYCYCLINE MONOHYDRATE 100 MG TABLET3. Diabetic nephropathy associated with type 2 diabetes mellitus (HCC) - ICD9:250.40, 583.81, ICD10: E11.21uncontrolled- Check HgA1C, fasting glucose and fasting lipid panel- Blood glucose monitoring on a once a day schedule4. Varicose veins of both legs with edema - ICD9: 454.8, ICD10: I83.893- stable5. Chronic anticoagulation - ICD9: V58.61, ICD10: Z79.01- continue to f/u with INR in 3-5 days since on antibiotic currently6. Aortic valve stenosis, etiology of cardiac valve disease unspecified - ICD9:424.1, ICD10: I35.0- stable7. Acute pain of right shoulder - ICD9: 719.41, ICD10: M25.511- given corticosteroid injection in shoulder today without complication,tolerated well, aware of r/b/i and agreed with injection in office , f/u prn8. Acute shoulder bursitis, right - ICD9: 726.10, ICD10: M75.51- [facility] if develops chest pain, shortness of breath, or severe worsening ofsymptoms.Discussed risks, benefits, alternatives, and potential side effects ofmedications.Patient expressed understanding and agreed with the plan.AILEEN Flores[address] [place], [place] [address]Qdtqi: [phone]: [phone] Provider: MACHO SOLORIO [[id number]]Allergies As of Date: 05/05/2017 Noted Allergy ReactionSEASONAL ALLERGIES 10/04/2012 8 - GI Upset Comments: headacheDate Reviewed: 2016Reviewed by: Kita Newell LPN - Fully AssessedReason for Visit: Follow Up [171] Cmt: 3 monthsPrimary Visit Diagnosis:Rhonchi [R09.89] Other Visit Diagnoses:Cough [R05] Diabetic nephropathy associated with type 2 diabetes mellitus (HCC) [E11.21] Varicose veins of both legs with edema [I83.893] Chronic anticoagulation [Z79.01] Aortic valve stenosis, etiology of cardiac valve disease unspecified [I35.0] Acute pain of right shoulder [ M25.511] Acute shoulder bursitis, right [M75.51]Order(s):doxycycline monohydrate 100 mg tabletTake 1 tablet by mouth twice daily.Disp: 20 tabletRfl: 0Prescriptions as of 05/05/2017 Sig: WARFARIN 5 MG TABLET TAKE 1 TABLET DAILY ON THU, * COMPOUNDED PRESCRIPTION Organically Bound Minerals COMPOUNDED PRESCRIPTION Vitamin O dietary supplement COMPOUNDED PRESCRIPTION Cardio-Plus COMPOUNDED PRESCRIPTION Cardiotrophin PMG COMPOUNDED PRESCRIPTION Forever Arctic C COMPOUNDED PRESCRIPTION Cataplex E2 COMPOUNDED PRESCRIPTION Boswellia complex COMPOUNDED PRESCRIPTION Glucosamine Synergy FUROSEMIDE 20 MG TABLET Take 1 tablet by mouth once d* DILTIAZEM SR 120 MG 24 HR CAP Take 1 capsule by mouth once * WARFARIN 1 MG TABLET Take 6mg on Thursday, Thursday* WARFARIN 1 MG TABLET Take 6mg on Thursday, Thursday* WARFARIN 5 MG TABLET Take 6mg Thu,Thu,Thu, Sat,Sun * OTC PRODUCT [facility]: Take 4 capsules b* ALOE VERA ORAL Take 3 Tablespoonsful by mout* DOXYCYCLINE MONOHYDRATE 100 M* Take 1 tablet by mouth twice *Problem List As Of Date 05/05/2017 Noted Resolved 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] INVALID FOR* Drug induced neutropenia [D70.2] INVALID FOR*11/23/2012 Atrial fibrillation [I48.91] INVALID FOR* 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] INVALID FOR* Hypercholesteremia [E78.00] INVALID FOR* Diabetes mellitus type 2 in nonobese (HCC) [E11*INVALID FOR* 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*INVALID FOR*07/06/2014 CHF ( congestive heart failure) (HCC) [I50.9] INVALID FOR* Aortic stenosis [I35.0] INVALID FOR* History of gastric cancer [Z85.028] INVALID FOR* Chronic atrial fibrillation (HCC) [I48.2] INVALID FOR* Chronic diastolic congestive heart failure (HCC*INVALID FOR* Nonrheumatic aortic valve stenosis [I35.0] INVALID FOR* Positive for macroalbuminuria [R80.9] INVALID FOR* Screening for intestinal cancer [Z12.10] INVALID FOR* 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*INVALID FOR* Bilateral leg edema [R60.0] INVALID FOR* Varicose veins of both legs with edema [I83.893]INVALID FOR* Chronic anticoagulation [Z79.01] INVALID FOR*Prescriptions ordered this encounter Disp Refills Start End DOXYCYCLINE MONOHYDRATE 100 MG TABLET 20 t* 0 05/05/2017 Route: ORAL Sig: Take 1 tablet by mouth twice daily. Status:Closed by MACHO SOLORIO DO on 05/05/17 OBSOLETE Observed: 04/27/2017 Status: COMPLETED Source: [place] 12:00 AM [facility] REPOSITORY Refill (FAMPWS) ---------JAYDE KYLE ([id number]) 1950 MDate Time Provider Department04/27/17 MACHO SOLORIO During your visit today, we recorded the following information about you:Susan Mercado PharmD 04/28/2017 12:11 PM SignedDrAngel Solorio,Please review pended medication orders. Last Anticoag note from 04/17 below.Please note: Pended SIG does not match last Anticoag note and pt has two ordersfor Warfarin 5mg and two for Warfarin 1 mg on med list. Please verify correctSIG and d/c duplicate orders.GABE: 02/02/2017NOV: 05/05/2017Thank you.Pharmacist Refill Authorization ReviewName: Jayde EspinosaCRISTIAN: [id number]: 04/28/2017Time: 12:11 PMRefill authorization request(s) received via pharmacy request and reviewedunder effective consult agreement. Upon review , did confirm that an activepatient-provider relationship exists and that the prescriber is a participatingphysician under the consult agreement.The medication(s) fall under the following categories: Category 3: 1 corresponding medication(s) does not qualify for renewal due toneeding a physician consult and review.Additional actions taken: Contacted prescriber to discuss.Suasn Mercado PharmDPharmacy Managed Authorization CenterPhone Current Outpatient Prescriptions:warfarin (COUMADIN) 5 mg tablet TAKE 1 TABLET THU, THU, THU, THU, SUNCOMPOUNDED PRESCRIPTION Organically Bound MineralsCOMPOUNDED PRESCRIPTION Vitamin O dietary supplementCOMPOUNDED PRESCRIPTION Cardio-PlusCOMPOUNDED PRESCRIPTION Cardiotrophin PMGCOMPOUNDED PRESCRIPTION Forever Arctic CCOMPOUNDED PRESCRIPTION Cataplex [id number] PRESCRIPTION Boswellia complexCOMPOUNDED PRESCRIPTION Glucosamine Synergyfurosemide (LASIX) 20 mg tablet Take 1 tablet by mouth once daily. As neededfor leg swellingdiltiazem CD (CARDIZEM CD) 120 mg 24 hr capsule Take 1 capsule by mouth oncedaily.warfarin (COUMADIN) 1 mg tablet Take 6mg on Thursday, Thursday, and Fridays and5mg the rest of the weekwarfarin (COUMADIN) 1 mg tablet Take 6mg on Thursday, Thursday, and Fridays and5mg the rest of the weekwarfarin (COUMADIN) 5 mg tablet Take 6mg Thu,Thu,Thu,Thu,Sun and 5mg all otherdays or as directed.OTC PRODUCT [facility]: Take 4 capsules by mouth twice daily.ALOE VERA ORAL Take 3 Tablespoonsful by mouth once daily.No current facility-administered medications for this visit.Allergies As of Date: 04/27/2017 Noted Allergy ReactionSEASONAL ALLERGIES 10/04 8 - GI Upset Comments: headacheDate Reviewed: 02/10/2017Reviewed by: Chica (Rn) CRISTIAN Villalpando - Fully AssessedReason for Visit: Refill Request [94]Order(s):warfarin (COUMADIN) 5 mg tabletTAKE 1 TABLET DAILY ON THU, THU, THU, THU, isp: 90 tabletRfl: 1Prescriptions as of 04/27/2017 Sig: WARFARIN 5 MG TABLET TAKE 1 TABLET DAILY ON THU, * COMPOUNDED PRESCRIPTION Organ[employer] Minerals COMPOUNDED PRESCRIPTION Vitamin O dietary supplement COMPOUNDED PRESCRIPTION Cardio-Plus COMPOUNDED PRESCRIPTION Cardiotrophin PMG COMPOUNDED PRESCRIPTION Forever Arctic C COMPOUNDED PRESCRIPTION Cataplex E2 COMPOUNDED PRESCRIPTION Boswellia complex COMPOUNDED PRESCRIPTION Glucosamine Synergy FUROSEMIDE 20 MG TABLET Take 1 tablet by mouth once d* DILTIAZEM SR 120 MG 24 HR CAP Take 1 capsule by mouth once * WARFARIN 1 MG TABLET Take 6mg on Thursday, Thursday* WARFARIN 1 MG TABLET Take 6mg on Thursday, Thursday* WARFARIN 5 MG TABLET Take 6mg Thu,Thu,Thu, Thu,Thu * OTC PRODUCT [facility]: Take 4 capsules b* ALOE VERA ORAL Take 3 Tablespoonsful by mout*Problem List As Of Date 04/27/2017 Noted Resolved 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] INVALID FOR* Drug induced neutropenia [D70.2] INVALID FOR*11/23/2012 Atrial fibrillation [I48.91] INVALID FOR* 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] INVALID FOR* Hypercholesteremia [E78.00] INVALID FOR* Diabetes mellitus type 2 in nonobese (HCC) [E11*INVALID FOR* 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*INVALID FOR*07/06/2014 CHF (congestive heart failure) (HCC) [I50.9] INVALID FOR* Aortic stenosis [ I35.0] INVALID FOR* History of gastric cancer [Z85.028] INVALID FOR* Chronic atrial fibrillation (HCC) [I48.2] INVALID FOR* Chronic diastolic congestive heart failure ( HCC*INVALID FOR* Nonrheumatic aortic valve stenosis [I35.0] INVALID FOR* Positive for macroalbuminuria [R80.9] INVALID FOR* Screening for intestinal cancer [Z12.10] INVALID FOR* 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*INVALID FOR* Bilateral leg edema [R60.0] INVALID FOR* Varicose veins of both legs with edema [I83.893]INVALID FOR* Chronic anticoagulation [Z79.01] INVALID FOR*Prescriptions ordered this encounter Disp Refills Start End WARFARIN 5 MG TABLET 90 t* 1 04/28/2017 Sig: TAKE 1 TABLET DAILY ON TUE, WED, XAVI, SAT, SUNMedications Discontinued During This Encounter warfarin (COUMADIN) 5 mg tablet 30 t* 0 02/17/2017 04/28/2017 Sig: TAKE 1 TABLET TUE, WED, XAVI, SAT, SUN Disc: Reason for discontinue is not on file. Status:Closed by MCAHO SOLORIO DO on 04/28/17 PROGRESS Observed: 04/17/2017 Status: COMPLETED Source: [place] 4:10 PM [facility] REPOSITORY HNO ID: [id number]: Macho Torrezervice: (none) Author Type: PhysicianType: Progress NotesFiled: 04/17/2017 4:13 PMNote Text:Agree with Manjula Solorio DO PROGRESS Observed: 04/17/2017 Status: COMPLETED Source: [place] 3:48 PM [facility] REPOS[facility] HNO ID: [id number]: Dada Dos Santos LPNService: (none)Author Type: (none)Type: Progress NotesFiled: 04/17/2017 3:49 PMNote Text:patient had inr completed at [facility] CCpatients inr is 2.3 (patients inr range is 2.0-3.0)patient is currently taking 6mg Mon,Wed,Fri and 5mg all other dayspatients last dose change was on 09/30/16 due to a low level of 1.5patient has had no changes in medication and no change in dietAdvised patient to continue on the same dose (s) and that they would onlybe contacted regarding dosage and follow up instructions after review withprovider, if a change is needed. Written instructions given and patientverbalized understanding. Presently scheduled in 4 weeks (pt will call toschedule) for follow up INR. HOSP Observed: 04/17/2017 Status: COMPLETED Source: [place] 3:30 PM [facility] REPOSITORY Anticoagulation Visit (COUMWS) ---------JAYDE KYLE ([id number]) 1950 MDate Time Provider Department04/17/17 3:30 PM ANTICOAG [facility] During your visit today, we recorded the following information about you:Dada Dos Santos BOTTOM STAINER 04/17/2017 3:49 PM Signedpatient had inr completed at [facility] CCpatients inr is 2.3 (patients inr range is 2.0-3.0)patient is currently taking 6mg Mon,Wed,Fri and 5mg all other dayspatients last dose change was on 09/30/16 due to a low level of 1.5patient has had no changes in medication and no change in dietAdvised patient to continue on the same dose(s) and that they would only becontacted regarding dosage and follow up instructions after review withprovider, if a change is needed. Written instructions given and patientverbalized understanding. Presently scheduled in 4 weeks (pt will call toschedule) for follow up INR.Macho Solorio DO 04/17/2017 4 :13 PM SignedAgree with Rosalee Skaggs Provider: MACHO SOLORIO [[id number]] Allergies As of Date: 04/17/2017 Noted Allergy ReactionSEASONAL ALLERGIES 10/04 8 - GI Upset Comments: headacheDate Reviewed: 02/10/2017Reviewed by: Chica Ac) CRISTIAN Villalpando - Fully AssessedReason for Visit: Anticoagulation [8]Primary Visit Diagnosis:Atrial fibrillation, unspecified type (HCC) [I48.91]Order(s):INR (POC) [[id number]] Order #: [id number]. #:[id number] as of 04/17/2017 Sig: WARFARIN 5 MG TABLET TAKE 1 TABLET THU, THU, THU, * COMPOUNDED PRESCRIPTION Organ[employer] Minerals COMPOUNDED PRESCRIPTION Vitamin O dietary supplement COMPOUNDED PRESCRIPTION Cardio-Plus COMPOUNDED PRESCRIPTION Cardiotrophin PMG COMPOUNDED PRESCRIPTION Forever Arctic C COMPOUNDED PRESCRIPTION Cataplex E2 COMPOUNDED PRESCRIPTION Boswellia complex COMPOUNDED PRESCRIPTION Glucosamine Synergy FUROSEMIDE 20 MG TABLET Take 1 tablet by mouth once d* DILTIAZEM SR 120 MG 24 HR CAP Take 1 capsule by mouth once * WARFARIN 1 MG TABLET Take 6mg on Thursday, Thursday* WARFARIN 1 MG TABLET Take 6mg on Thursday, Thursday* WARFARIN 5 MG TABLET Take 6mg Thu,Thu,Thu, Sat,Sun * OTC PRODUCT [facility]: Take 4 capsules b* ALOE VERA ORAL Take 3 Tablespoonsful by mout*Problem List As Of Date 04/17/2017 Noted Resolved 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] INVALID FOR* Drug induced neutropenia [D70.2] INVALID FOR*11/23/2012 Atrial fibrillation [I48.91] INVALID FOR* 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] INVALID FOR* Hypercholesteremia [E78.00] INVALID FOR* Diabetes mellitus type 2 in nonobese (HCC) [E11*INVALID FOR* 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*INVALID FOR*07/06/2014 CHF (congestive heart failure) (HCC) [I50.9] INVALID FOR* Aortic stenosis [ I35.0] INVALID FOR* History of gastric cancer [Z85.028] INVALID FOR* Chronic atrial fibrillation (HCC) [I48.2] INVALID FOR* Chronic diastolic congestive heart failure ( HCC*INVALID FOR* Nonrheumatic aortic valve stenosis [I35.0] INVALID FOR* Positive for macroalbuminuria [R80.9] INVALID FOR* Screening for intestinal cancer [Z12.10] INVALID FOR* 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*INVALID FOR* Bilateral leg edema [R60.0] INVALID FOR* Varicose veins of both legs with edema [I83.893]INVALID FOR* Chronic anticoagulation [Z79.01] INVALID FOR*Follow-up and Disposition History RecordedEncounter Number: [id number] Status:Closed by DADA DOS SANTOS LPN on 04/17/17 PROGRESS Observed: 03/18/2017 Status: COMPLETED Source: [place] 5:54 PM [facility] REPOSIT[facility] HNO ID: [id number]: Macho Torrezervice: (none) Author Type: PhysicianType: Progress NotesFiled: 03/19/2017 8:12 AMNote Text:Agree with below, continue same dose, recheck INR 4 weeksJordsilvia Solorio, DO PROGRESS Observed: 03/18/2017 Status: COMPLETED Source: [place] 3:41 PM [facility] HNO ID: [id number]: Dada Dos Santos LPNService: (none)Author Type: (none)Type: Progress NotesFiled: 03/18/2017 3:42 PMNote Text:patient had inr completed at [facility] CCpatients inr is 2.1 (patients inr range is 2.0-3.0)patient is currently taking 6mg Mon, Wed,Fri and 5mg all other dayspatients last dose change was on 09/30/16 due to a low level of 1.5patient has had no changes in medication and no change in dietAdvised patient to continue on the same dose(s) and that they would onlybe contacted regarding dosage and follow up instructions after review withprovider, if a change is needed. Written instructions given and patientverbalized understanding. Presently scheduled in 4 weeks (pt will call toschedule) for follow up INR. HOSP Observed: 03/18/2017 Status: COMPLETED Source: [place] 3:15 PM [facility] RE[facility] Anticoagulation Visit (COUMWS) ---------JAYDE KYLE ([id number]) 1950 MDate Time Provider Department03/18/17 3:15 [facility] During your visit today, we recorded the following information about you:Dada Dos Santos LPN 03/18/2017 3:42 PM Signedpatient had inr completed at [facility] CCpatients inr is 2.1 (patients inr range is 2.0-3.0)patient is currently taking 6mg Mon, Wed,Fri and 5mg all other dayspatients last dose change was on 09/30/16 due to a low level of 1.5patient has had no changes in medication and no change in dietAdvised patient to continue on the same dose(s) and that they would only becontacted regarding dosage and follow up instructions after review withprovider, if a change is needed. Written instructions given and patientverbalized understanding. Presently scheduled in 4 weeks (pt will call toschedule) for follow up INR.Macho Solorio DO 03/19/2017 8 :12 AM SignedAgree with below, continue same dose, recheck INR 4 weeksJoRosalee Moncada Provider: MACHO SOLORIO [[id number]]Allergies As of Date: 03/18/2017 Noted Allergy ReactionSEASONAL ALLERGIES 10/04/2012 8 - GI Upset Comments: headacheDate Reviewed: 2016Reviewed by: Chica Ac) CRISTIAN Villalpando - Fully AssessedReason for Visit: Anticoagulation [8]Primary Visit Diagnosis:Atrial fibrillation, unspecified type (HCC) [I48.91]Order(s):INR (POC) [[id number]] Order #: [id number]. #:[id number] as of 2016 Sig: WARFARIN 5 MG TABLET TAKE 1 TABLET THU, THU, XAVI, * COMPOUNDED PRESCRIPTION Organically Bound Minerals COMPOUNDED PRESCRIPTION Vitamin O dietary supplement COMPOUNDED PRESCRIPTION Cardio-Plus COMPOUNDED PRESCRIPTION Cardiotrophin PMG COMPOUNDED PRESCRIPTION Forever Arctic C COMPOUNDED PRESCRIPTION Cataplex E2 COMPOUNDED PRESCRIPTION Boswellia complex COMPOUNDED PRESCRIPTION Glucosamine Synergy FUROSEMIDE 20 MG TABLET Take 1 tablet by mouth once d* DILTIAZEM SR 120 MG 24 HR CAP Take 1 capsule by mouth once * WARFARIN 1 MG TABLET Take 6mg on Thursday, Thursday* WARFARIN 1 MG TABLET Take 6mg on Thursday, Thursday* WARFARIN 5 MG TABLET Take 6mg Thu,Thu,Thu, Sat,Sun * OTC PRODUCT [facility]: Take 4 capsules b* ALOE VERA ORAL Take 3 Tablespoonsful by mout*Problem List As Of Date 03/18/2017 Noted Resolved 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] INVALID FOR* Drug induced neutropenia [D70.2] INVALID FOR*11/23/2012 Atrial fibrillation [I48.91] INVALID FOR* 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] INVALID FOR* Hypercholesteremia [E78.00] INVALID FOR* Diabetes mellitus type 2 in nonobese (HCC) [E11*INVALID FOR* 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*INVALID FOR*07/06/2014 CHF (congestive heart failure) (HCC) [I50.9] INVALID FOR* Aortic stenosis [ I35.0] INVALID FOR* History of gastric cancer [Z85.028] INVALID FOR* Chronic atrial fibrillation (HCC) [I48.2] INVALID FOR* Chronic diastolic congestive heart failure ( HCC*INVALID FOR* Nonrheumatic aortic valve stenosis [I35.0] INVALID FOR* Positive for macroalbuminuria [R80.9] INVALID FOR* Screening for intestinal cancer [Z12.10] INVALID FOR* 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*INVALID FOR* Bilateral leg edema [R60.0] INVALID FOR* Varicose veins of both legs with edema [I83.893]INVALID FOR* Chronic anticoagulation [Z79.01] INVALID FOR*Follow-up and Disposition History RecordedEncounter Number: [id number] Status:Closed by DADA DOS SANTOS LPN on 03/19/17 OBSOLETE Observed: 02/14/2017 Status: COMPLETED Source: [place] 12:00 AM [facility] REPOS[facility] Refill (FAMPWS) ---------JAYDE KYLE ([id number]) 1950 MDate Time Provider Department02/14/17 [facility] During your visit today, we recorded the following information about you:Leticia Mercer PharmD 02/16/2017 10:07 AM FabbyDrAngel Solorio -Please review pended medication orders. Pt following with Lisa JamisonagClinlaine.GABE: 02/02/2017NOV: 05/05/2017Thank you.Pharmacist Refill Authorization ReviewName: Jayde FletcherGabbyRN: [id number]: 02/16/2017Time: 10:06 AMRefill authorization request(s) received via pharmacy request and reviewedunder effective consult agreement. Upon review, did confirm that an activepatient-provider relationship exists and that the prescriber is a participatingphysician under the consult agreement.The medication(s) fall under the following categories:Category 3: 1 corresponding medication(s) does not qualify for renewal due topatient being followed by another provider.Additional actions taken: Contacted prescriber to discuss.Wild DuarteDPharmacino Managed Authorization CenterPhone Current Outpatient Prescriptions:COMPOUNDED PRESCRIPTION Organically Bound MineralsCOMPOUNDED PRESCRIPTION Vitamin O dietary supplementCOMPOUNDED PRESCRIPTION Cardio-PlusCOMPOUNDED PRESCRIPTION Cardiotrophin PMGCOMPOUNDED PRESCRIPTION Forever Arctic CCOMPOUNDED PRESCRIPTION Cataplex [id number] PRESCRIPTION Boswellia complexCOMPOUNDED PRESCRIPTION Glucosamine Synergyfurosemide (LASIX) 20 mg tablet Take 1 tablet by mouth once daily. As neededfor leg swellingdiltiazem CD (CARDIZEM CD) 120 mg 24 hr capsule Take 1 capsule by mouth oncedaily.warfarin (COUMADIN) 1 mg tablet Take 6mg on Thursday, Thursday, and Fridays and5mg the rest of the weekwarfarin (COUMADIN) 1 mg tablet Take 6mg on Thursday, Thursday, and Fridays and5mg the rest of the weekwarfarin (COUMADIN) 5 mg tablet Take 6mg Thu,Thu,Thu,Thu,Thu and 5mg all otherdays or as directed.OTC PRODUCT [place]: Take 4 capsules by mouth twice daily.ALOE VERA ORAL Take 3 Tablespoonsful by mouth once daily.No current facility-administered medications for this visit.Allergies As of Date: 02/14/2017 Noted Allergy ReactionSEASONAL ALLERGIES 10/04 8 - GI Upset Comments: headacheDate Reviewed: 02/10/2017Reviewed by: Chica Villalpando RN - Fully AssessedReason for Visit: Refill Request [94]Order(s):warfarin (COUMADIN) 5 mg tabletTAKE 1 TABLET THU, THU, THU, THU, isp: 30 tabletRfl: 0Prescriptions as of 02/14/2017 Sig: WARFARIN 5 MG TABLET TAKE 1 TABLET THU, THU, THU, * COMPOUNDED PRESCRIPTION Organically [employer] Minerals COMPOUNDED PRESCRIPTION Vitamin O dietary supplement COMPOUNDED PRESCRIPTION Cardio-Plus COMPOUNDED PRESCRIPTION Cardiotrophin PMG COMPOUNDED PRESCRIPTION [facility] COMPOUNDED PRESCRIPTION Cataplex E2 COMPOUNDED PRESCRIPTION Boswellia complex COMPOUNDED PRESCRIPTION Glucosamine Synergy FUROSEMIDE 20 MG TABLET Take 1 tablet by mouth once d* DILTIAZEM SR 120 MG 24 HR CAP Take 1 capsule by mouth once * WARFARIN 1 MG TABLET Take 6mg on Thursday, Thursday* WARFARIN 1 MG TABLET Take 6mg on Thursday, Thursday* WARFARIN 5 MG TABLET Take 6mg Thu,Thu,Thu,Thu,Thu * OTC PRODUCT [facility]: Take 4 capsules b* ALOE VERA ORAL Take 3 Tablespoonsful by mout*Problem List As Of Date 02/14/2017 Noted Resolved 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] INVALID FOR* Drug induced neutropenia [D70.2] INVALID FOR*11/23 Atrial fibrillation [I48.91] INVALID FOR* 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] INVALID FOR* Hypercholesteremia [E78.00] INVALID FOR* Diabetes mellitus type 2 in nonobese (HCC) [E11*INVALID FOR* 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*INVALID FOR* 07/06/2014 CHF (congestive heart failure) (HCC) [I50.9] INVALID FOR* Aortic stenosis [I35.0] INVALID FOR* History of gastric cancer [Z85.028] INVALID FOR* Chronic atrial fibrillation (HCC) [I48.2] INVALID FOR* Chronic diastolic congestive heart failure (HCC*INVALID FOR* Nonrheumatic aortic valve stenosis [I35.0] INVALID FOR* Positive for macroalbuminuria [R80.9] INVALID FOR* Screening for intestinal cancer [Z12.10] INVALID FOR* 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*INVALID FOR* Bilateral leg edema [R60.0] INVALID FOR* Varicose veins of both legs with edema [I83.893]INVALID FOR* Chronic anticoagulation [Z79.01] INVALID FOR*Prescriptions ordered this encounter Disp Refills Start End WARFARIN 5 MG TABLET 30 t* 0 02/17/2017 Sig: TAKE 1 TABLET THU, THU, THU, SAT, SUNEncounter Number: [id number] Status:Closed by MACHO SOLORIO DO on 02/17/17 PROGRESS Observed: 02/10/2017 Status: COMPLETED Source: [place] 9:02 AM [facility] HNO ID: [id number]: Marquise Rivera: (none) Author Type: PhysicianType: Progress NotesFiled: 02/10/2017 9:10 AMNote Text:History of Present IllnessPatient is a 66 year old male Cardiac Diagnoses:1. CHF - new onset July 2014, none since2. Aortic stenosis - low gradient, severe3. OSA4. DM5. Previous tobacco dependency -6. Hypertension7. Hyperlipidemia8. Permanent atrial fibrillation - 2009He underwent a symptom limited stress test in November and completed stage Iof the Isidoro protocol and no significant arrhythmias and adequate bloodpressure. He states his exercise tolerance now is better than 3 monthsago. No PND or orthopnea. He does have some dependent edema but has nottaken prescribed Lasix. No chest discomfort near syncope or syncopalepisodes. Some orthostatic type lightheadedness. ALLERGIES:ALLERGIESAllergen Reactions- Seasonal Allergies GI Upset headacheCURRENT MEDICATIONS:COMPOUNDED PRESCRIPTION Organically Bound MineralsCOMPOUNDED PRESCRIPTION Vitamin O dietary supplementCOMPOUNDED PRESCRIPTION Cardio-PlusCOMPOUNDED PRESCRIPTION Cardiotrophin PMGCOMPOUNDED PRESCRIPTION [facility] CCOMPOUNDED PRESCRIPTION Cataplex [id number] PRESCRIPTION Boswellia complexCOMPOUNDED PRESCRIPTION Glucosamine Synergyfurosemide (LASIX) 20 mg tablet Take 1 tablet by mouth once daily. Asneeded for leg swellingdiltiazem CD ( CARDIZEM CD) 120 mg 24 hr capsule Take 1 capsule by mouthonce daily.warfarin (COUMADIN) 1 mg tablet Take 6mg on Thursday, Thursday, and Fridaysand 5mg the rest of the weekwarfarin (COUMADIN) 1 mg tablet Take 6mg on Thursday, Thursday, and Fridaysand 5mg the rest of the weekwarfarin (COUMADIN) 5 mg tablet Take 6mg Thu,Thu,Thu,Thu,Sun and 5mg allother days or as directed.OTC PRODUCT [place]: Take 4 capsules by mouth twice daily.ALOE VERA ORAL Take 3 Tablespoonsful by mouth once daily.PAST MEDICAL HISTORYDiagnosis Date- Arrhythmia- Atrial fibrillation (HCC)- CHF (congestive heart failure) ( HCC)- Diabetes mellitus (HCC)- Diabetic nephropathy associated with type 2 diabetes mellitus (HCC)02/02/2017- 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- Hyperlipidemia- Neuropathy (HCC)- KEYSHAWN ( obstructive sleep apnea)- Phimosis- Screening for colon cancer 12/2016PAST SURGICAL HISTORYNo date: VFKSDILCBQSC63/30/2017: KNYMJGDHQXJ36/20/2017: EGD W/ BIOPSY SNGL/MLTPL2012: EGD W/O OR W/BRUSH/WASH Comment: EGD04/14/2013: EGD W/O OR W/BRUSH/WASH Comment: EGD109/19/12: EGD W/O OR W/BRUSH/WASH Comment: EGDNo date: HERNIA REPAIR HX Comment: umbilicalFAMILY HISTORY Stroke Mother Stroke Father tia [OTHER] Father Heart Brother Diabetes Sister Cancer Sister Comment: lymphoma x 2 pneumonia [OTHER] Maternal Grandmother Stroke Maternal Grandfather Cancer Paternal Grandfather Stroke Paternal GrandmotherSOCIAL HISTORY:Social HistorySubstance Use Topics- Smoking status: Current Every Day Smoker Types: Cigarettes, Pipe, Cigars- Smokeless tobacco: Former User Types: Chew Quit date: 09/03/1982 Comment: Quit smoking cigarettes when he was 20 years old, smokes pipeocc AND cigars daily, has used some form of tobacco x 50 years.- Alcohol use NoROS:The physical systems reviewed reveal no pathological symptoms that arepertinent to this visitPHYSICAL EXAMINATION:Last 2 Encounter Wt Readings: Date: Wt: 02/10/2017 99.3 kg (218 lb 14.4 oz) 2016 98.4 kg (217 lb)BP 100/68 Pulse 85 Wt 99.3 kg (218 lb 14.4 oz) BMI 32.33 kg/s7Mxrpyvo appearance: well developed, well nourished 66 year old White malealert cooperative appropriate affectHEENT: PERRLA, EOMI no xanthelasma or icterusNeck : No JVDLungs: No crackles or wheezeHeart: Irregular irregularity, normal S1 diminished S2 without S3. 2/6systolic ejection murmur right upper sternal borderAbdomen: Soft obeseExtremities: Trace?1+ ankle edema left greater than rightNeurologic: Cranial nerves II through XII intactMusculoskeletal: No significant joint deformity, tendon xanthomaLast 2 Lipids:Cholesterol 145 12/12/2015Cholesterol 157 12/11/2014HDL Cholesterol 33 12/12/2015HDL Cholesterol 26 12/11/2014LDL Cholesterol 100 12/12/2015LDL Cholesterol 100 12/11/2014VLDL Cholesterol 12 12/12/2015VLDL Cholesterol 31 12/11/2014BMP:BUN 20 10/24/2016BUN 28 10/23/2015Sodium 137 10/24/2016Sodium 137 10/23/2015CO2 30 10/24/2016CO2 28 10/23/2015Calcium 9.2 10/24/2016Calcium 9.3 10/23/2015Diagnosis:Severe aortic stenosis (primary encounter diagnosis)Chronic atrial fibrillation (hcc)Chronic anticoagulationBilateral leg edemaHypercholesteremiaPLAN: Discussed cardiac catheterization and a valve replacement and atthis time he believes he is doing better than previous and does not wantto proceed knowing risks and benefits at this time. Reevaluate for? 6months with echocardiogram and encouraged patient to reconsider earliervalvular interventionThank you Dr. Solorio for the opportunity to evaluate Jayde Anderson. From the cardiac standpoint I hope this information will beof value to you in continuing his care.The patient is counseled and instructed in all of the above and verbalizesunderstanding.F/U at next scheduled visit 6 months, sooner if need be. Patient agreeswith this plan of care.This note was partially generated using [employer] voice recognition system,and there may be some incorrect words, spellings, and punctuation thatwere not noted in checking the note before saving.Marquise Gr DO CNOV Observed: 02/10/2017 Status: COMPLETED Source: [place] 8:45 AM [facility] Office Visit (CARDWS) ---------[facility]AYDE KYLE ([id number]) 1950 [facility] Department02/10/17 8:45 AM MARQUISE GR During your visit today, we recorded the following information about you: Pulse Blood pressure Weight 85/ minute 100/68 99.3 kgJorjehumphrey Blade Gr DO 02/10/2017 9:10 AM SignedHistory of Present IllnessPatient is a 66 year old male Cardiac Diagnoses:1. CHF - new onset July 2014, none since2. Aortic stenosis - low gradient, severe3. OSA4. DM5. Previous tobacco dependency -6. Hypertension7. Hyperlipidemia8. Permanent atrial fibrillation - 2009He underwent a symptom limited stress test in November and completed stage I ofthe Isidoro protocol and no significant arrhythmias and adequate blood pressure.He states his exercise tolerance now is better than 3 months ago. No PND ororthopnea. He does have some dependent edema but has not taken prescribedLasix. No chest discomfort near syncope or syncopal episodes. Someorthostatic type lightheadedness. ALLERGIES:ALLERGIESAllergen Reactions- Seasonal Allergies GI Upset headacheCURRENT MEDICATIONS:COMPOUNDED PRESCRIPTION Organically Bound MineralsCOMPOUNDED PRESCRIPTION Vitamin O dietary supplementCOMPOUNDED PRESCRIPTION Cardio-PlusCOMPOUNDED PRESCRIPTION Cardiotrophin PMGCOMPOUNDED PRESCRIPTION [facility] CCOMPOUNDED PRESCRIPTION Cataplex [id number] PRESCRIPTION Boswellia complexCOMPOUNDED PRESCRIPTION Glucosamine Synergyfurosemide (LASIX) 20 mg tablet Take 1 tablet by mouth once daily. As neededfor leg swellingdiltiazem CD (CARDIZEM CD) 120 mg 24 hr capsule Take 1 capsule by mouth oncedaily.warfarin (COUMADIN) 1 mg tablet Take 6mg on Thursday, Thursday, and Fridays and5mg the rest of the weekwarfarin (COUMADIN) 1 mg tablet Take 6mg on Thursday, Thursday, and Fridays and5mg the rest of the weekwarfarin (COUMADIN) 5 mg tablet Take 6mg Thu,Thu,Thu,Sat,Sun and 5mg all otherdays or as directed.OTC PRODUCT [facility]: Take 4 capsules by mouth twice daily.ALOE VERA ORAL Take 3 Tablespoonsful by mouth once daily.PAST MEDICAL HISTORYDiagnosis Date- Arrhythmia- Atrial fibrillation (HCC)- CHF (congestive heart failure) (HCC)- Diabetes mellitus (HCC)- Diabetic nephropathy associated with type 2 diabetes mellitus (HCC) 02/02/2017- 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- Hyperlipidemia- Neuropathy (HCC)- KEYSHAWN (obstructive sleep apnea)- Phimosis- Screening for colon cancer 12/2016PAST SURGICAL HISTORYNo date: LPBAMDTOFQBD71/30/2017: HVREFQUVJBL04/20/2017: EGD W/ BIOPSY SNGL/MLTPL12/2012: EGD W/O OR W/BRUSH/WASH Comment: EGD04/14/2013: EGD W/O OR W/BRUSH/WASH Comment: EGD109/19/12: EGD W/O OR W/BRUSH/WASH Comment: EGDNo date: HERNIA REPAIR HX Comment: umbilicalFAMILY HISTORY Stroke Mother Stroke Father tia [OTHER] Father Heart Brother Diabetes Sister Cancer Sister Comment: lymphoma x 2 pneumonia [OTHER] Maternal Grandmother Stroke Maternal Grandfather Cancer Paternal Grandfather Stroke Paternal GrandmotherSOCIAL HISTORY:Social HistorySubstance Use Topics- Smoking status: Current Every Day Smoker Types: Cigarettes, Pipe, Cigars- Smokeless tobacco: Former User Types: Chew Quit date: 09/03/1982 Comment: Quit smoking cigarettes when he was 20 years old, smokes pipe occANDamp; cigars daily, has used some form of tobacco x 50 years.- Alcohol use NoROS:The physical systems reviewed reveal no pathological symptoms that arepertinent to this visitPHYSICAL EXAMINATION:Last 2 Encounter Wt Readings: Date: Wt: 02/10/2017 99.3 kg (218 lb 14.4 oz) 02/02/2017 98.4 kg (217 lb)BP 100/68 Pulse 85 Wt 99.3 kg (218 lb 14.4 oz) BMI 32.33 kg/ j0Lmcgwxj appearance: well developed, well nourished 66 year old White male alertcooperative appropriate affectHEENT: PERRLA, EOMI no xanthelasma or icterusNeck: No JVDLungs: No crackles or wheezeHeart: Irregular irregularity, normal S1 diminished S2 without S3. 2/6systolic ejection murmur right upper sternal borderAbdomen: Soft obeseExtremities: Trace?1+ ankle edema left greater than rightNeurologic: Cranial nerves II through XII intactMusculoskeletal: No significant joint deformity, tendon xanthomaLast 2 Lipids:Cholesterol 145 12/12/2015Cholesterol 157 12/11/2014HDL Cholesterol 33 12/12/2015HDL Cholesterol 26 12/11/2014LDL Cholesterol 100 12/12/2015LDL Cholesterol 100 12/11/2014VLDL Cholesterol 12 12/12/2015VLDL Cholesterol 31 12/11/2014BMP:BUN 20 10/24/2016BUN 28 10/23/2015Sodium 137 10/24/2016Sodium 137 10/23/2015CO2 30 10/24/2016CO2 28 10/23/2015Calcium 9.2 10/24/2016Calcium 9.3 10/23/2015Diagnosis:Severe aortic stenosis (primary encounter diagnosis)Chronic atrial fibrillation (hcc) Chronic anticoagulationBilateral leg edemaHypercholesteremiaPLAN: Discussed cardiac catheterization and a valve replacement and at thistime he believes he is doing better than previous and does not want to proceedknowing risks and benefits at this time. Reevaluate for?6 months withechocardiogram and encouraged patient to reconsider earlier valvularinterventionThank you Dr. Solorio for the opportunity to evaluate Jayde Kyle.From the cardiac standpoint I hope this information will be of value to you incontinuing his care.The patient is counseled and instructed in all of the above and verbalizesunderstanding.F/U at next scheduled visit 6 months, sooner if need be. Patient agrees withthis plan of care.This note was partially generated using [employer] voice recognition system, andthere may be some incorrect words, spellings, and punctuation that were notnoted in checking the note before saving.Rosalee Ragsdale Provider: BALDO CORTES [[id number]]Allergies As of Date : 02/10/2017 Noted Allergy ReactionSEASONAL ALLERGIES 10/04/2012 8 - GI Upset Comments: headacheDate Reviewed: 02/10/2017Reviewed by: Chica Ac) CRISTIAN Villalpando - Fully AssessedReason for Visit: Established Patient [175]Primary Visit Diagnosis:Severe aortic stenosis [I35.0] Other Visit Diagnoses:Chronic atrial fibrillation (HCC) [I48.2] Chronic anticoagulation [ Z79.01] Bilateral leg edema [R60.0] Hypercholesteremia [E78.00] Order(s):ECHO [[id number]] Order #: [id number]: 1 FUTUREPrescriptions as of 02/10/2017 Sig: COMPOUNDED PRESCRIPTION Organically Bound Minerals COMPOUNDED PRESCRIPTION Vitamin O dietary supplement COMPOUNDED PRESCRIPTION Cardio-Plus COMPOUNDED PRESCRIPTION Cardiotrophin PMG COMPOUNDED PRESCRIPTION Forever [place] C COMPOUNDED PRESCRIPTION Cataplex E2 COMPOUNDED PRESCRIPTION Boswellia complex COMPOUNDED PRESCRIPTION Glucosamine Synergy FUROSEMIDE 20 MG TABLET Take 1 tablet by mouth once d* DILTIAZEM SR 120 MG 24 HR CAP Take 1 capsule by mouth once * WARFARIN 1 MG TABLET Take 6mg on Thursday, Thursday* WARFARIN 1 MG TABLET Take 6mg on Thursday, Thursday* WARFARIN 5 MG TABLET Take 6mg Thu,Thu,Thu,Sat,Sun * OTC PRODUCT [facility]: Take 4 capsules b* ALOE VERA ORAL Take 3 Tablespoonsful by mout*Problem List As Of Date 2016 Noted Resolved 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] INVALID FOR* Drug induced neutropenia [D70.2] INVALID FOR*11/23/2012 Atrial fibrillation [I48.91] INVALID FOR* 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] INVALID FOR* Hypercholesteremia [E78.00] INVALID FOR* Diabetes mellitus type 2 in nonobese (HCC) [E11*INVALID FOR* 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*INVALID FOR*07/06/2014 CHF (congestive heart failure) (HCC) [I50.9] INVALID FOR* Aortic stenosis [I35.0] INVALID FOR* History of gastric cancer [Z85.028] INVALID FOR* Chronic atrial fibrillation (HCC) [I48.2] INVALID FOR* Chronic diastolic congestive heart failure (HCC*INVALID FOR* Nonrheumatic aortic valve stenosis [I35.0] INVALID FOR* Positive for macroalbuminuria [R80.9] INVALID FOR* Screening for intestinal cancer [Z12.10] INVALID FOR* 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*INVALID FOR* Bilateral leg edema [R60.0] INVALID FOR* Varicose veins of both legs with edema [ I83.893]INVALID FOR* Chronic anticoagulation [Z79.01] INVALID FOR* Status:Closed by MARQUISE GR DO on 02/10/17 PROGRESS Observed: 02/02/2017 Status: COMPLETED Source: [place] 10:53 AM [facility] RE[facility] HNO ID: [id number]: Macho Torrezervice: (none) Author Type: PhysicianType: Progress NotesFiled: 02/02/2017 11:59 AMNote Text:Patient presents with:Follow Up: 6 monthsHPI:Jayde Kyle is a 66 year old male who presents to the office todayfor review of health conditions.Concerns today:Left leg swelling, increased over the last 1-2 months, [facility] and had LLE Doppler US as well as xrays which showankle arthritis changes only, no new DVT. INR today at 2.6 range- takingCoumadin as prescribed. Does have varicose veins, admits to poor diabetesdiet choices with increased sugars as well as standing more at work, notalways wearing his compression stockings/socks as much.Mr. Kyle has past history of diabetes. Since our last visit hedenies excessive thirst or increased frequency of urination, chest pain ordyspnea , new or unusual visual symptoms and low sugar/hypoglycemicreactions. Follows a diabetic diet some of the time. He denies havingstarted his Metformin medication- would like to try diet control. Hereports checking his glucose on a once a day schedule with sugars in thefasting 100-140 range. Patient's last HgA1C wasHemoglobin A1C (%)Date Value01/28/2017 8.06/2016 6.8 )Last Ophthalmology exam was within the past 12 monthsMr. Kyle reports history of hyperlipidemia. Current therapyincludes diet and exercise. His most recent lipid panels are reviewed.Cholesterol (mg/dL)Date Value12/12/2015 145 HDL Cholesterol (mg/dL)Date Value12/12/2015 33 LDL Cholesterol (mg/dL)Date Value12/12/2015 100 Triglyceride (mg/dL)Date Value2015 62 Mr. Kyle indicates a history of hypertension and states that he isfeeling well and denies any symptoms referable to elevated blood pressure.Specifically denies headache, chest pain, palpitations, dyspnea andperipheral edema. Patient denies any side effects of his medication(s)and is compliant with their regimen.Last 3 Encounter BP Readings: Date: BP: 02/02/2017 100/60 12/26/2016 102/60 12/05/2016 100/60He watches his diet for sodium, low fat and low cholesterol some of thetime. He does not check BP's generally. 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 Rarely cedar.Social History Main Topics Smoking status: Current Every Day Smoker Packs/day: 0.00 Years: 0.00 Types: Cigarettes, Pipe, Cigars Smokeless status: Former User Types: Chew Quit date: 09/03/1982 Comment: Quit smoking cigarettes when he was 20 years old, smokes pipe occ AND cigars daily, has used some form of tobacco x 50 years. Alcohol use: No Drug use: NoSocial History Narrative GE adenocarcinoma- poorly undiffentiated, Dr. Rose Marie Booker and Dr.Jaroch Eduardo Workman MDFAMILY HISTORY Stroke Mother Stroke Father tia [OTHER] Father Heart Brother Diabetes Sister Cancer Sister Comment: lymphoma x 2 pneumonia [OTHER] Maternal Grandmother Stroke Maternal Grandfather Cancer Paternal Grandfather Stroke Paternal GrandmotherAllergies:ALLERGIESAllergen Reactions- Seasonal Allergies GI Upset headacheCurrent Meds:COMPOUNDED PRESCRIPTION Organically Bound MineralsCOMPOUNDED PRESCRIPTION Vitamin O dietary supplementCOMPOUNDED PRESCRIPTION Cardio-PlusCOMPOUNDED PRESCRIPTION Cardiotrophin PMGCOMPOUNDED PRESCRIPTION [facility] CCOMPOUNDED PRESCRIPTION Cataplex [id number] PRESCRIPTION Boswellia complexCOMPOUNDED PRESCRIPTION Glucosamine SynergymetFORMIN (GLUCOPHAGE) 500 mg tablet Take 1 tablet by mouth twice dailywith meals.diltiazem CD (CARDIZEM CD) 120 mg 24 hr capsule Take 1 capsule by mouthonce daily.warfarin (COUMADIN) 1 mg tablet Take 6mg on Thursday, Thursday, and Fridaysand 5mg the rest of the weekwarfarin ( COUMADIN) 1 mg tablet Take 6mg on Thursday, Thursday, and Fridaysand 5mg the rest of the weekwarfarin (COUMADIN) 5 mg tablet Take 6mg Thu,Thu,Thu,Thu,Sun and 5mg allother or as directed.OTC PRODUCT [facility]: Take 4 capsules by mouth twice daily.ALOE VERA ORAL Take 3 Tablespoonsful by mouth once daily.Review of Systems: The remainder of the review of systems is negative.PE: [id number]: 100/60Pulse: 80Resp: 20Temp: 36.7 ?C (98 ?F)TempSrc: Right TympanicWeight: 98.4 kg (217 lb)Gen: AANDO, NAD, non-toxic appearing, Pleasant, cooperativeHEENT: NT/AC, PERRLA, EOMs intact b/l , nares clear and patent b/l, pharynxwithout erythema, exudate or lesions. Uvula midline. MMMNeck: supple, No cervical LAD, no thyromegaly, no carotid bruitsCV : RRR, normal S1S2, 3/6 HSM RUSB murmurs, no gallops, no rubs, Pulses 2+and symmetric in UE and LE b/lLungs: normal respiratory effort, CTA b/l, no wheezing or rhonchi or ralesAbd: soft, NT, ND, +BS, no hepatosplenomegalyMS: FROM all 4 extremities, gait antalgicNeuro: CN II-XII intact b/l, strength 5/5 b/l UE and LE, DTRs 2/4 UE andLE, sensation intact.Skin: warm, dry, intact, No rashes or lesions on exposed skin.LLE pitting edema, no calf TTP, no skin infection, + significant varicoseveins present with hemosiderin staining of legASSESSMENT/PLAN:1. Bilateral leg edema - ICD9: 782.3, ICD10: R60.0 (primary diagnosis)- rx prn as below, needs to wear compression stockings regularly, continueCoumadin, secondary to varicose veins- FUROSEMIDE 20 MG TABLET2. Varicose veins of both legs with edema - ICD9: 454.8, ICD10: I83.893- see above3. Diabetes mellitus type 2 in nonobese (HCC) - ICD9: 250.00, ICD10: E11.9uncontrolled- Blood glucose monitoring on a once a day schedule- Encouraged regular aerobic exercise and weight loss- Daily Asprin therapy recommended- Follow up in 3 months, sooner should any other issues arise.- Discussed diabetic education issues of prison 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, diet and medications- side effects and need for compliancewith patient.- BP goal of <130/80- LDL goal of < 1004. Chronic anticoagulation - ICD9: V58.61, ICD10: Z79.01- continue same dose coumadin, recheck INR 1 month5. Chronic atrial fibrillation (HCC) - ICD9: 427.31, ICD10: I48.2- see above6. Hypercholesteremia - ICD9: 272.0, ICD10: E78.00- suboptimal control - Encouraged following a low fat, low cholesterol diet.- Discussed the benefits of regular aerobic exercise and weight loss.- Check fasting lipid panel7. Diabetic nephropathy associated with type 2 diabetes mellitus (HCC) -ICD9: 250.40, 583.81, ICD10: E11.21[facility] if develops chest pain, shortness of breath, or severe worsening ofsymptoms.Discussed risks, benefits, alternatives, and potential side effects ofmedications.Patient expressed understanding and agreed with the plan.Macho Solorio [id number] [facility] GRANT MEDICAL CENTERLisaLEXINGTON [place], [place] [address]Qkaay: [phone]: PROGRESS Observed: 02/02/2017 Status: COMPLETED Source: [place] 10:49 AM [facility] HNO ID: [id number]: Macho Torrezervice: (none) Author Type: PhysicianType: Progress NotesFiled: 02/02/2017 11:50 AMNote Text:Agree with belowaMcho Solorio DO CNOV Observed: 02/02/2017 Status: COMPLETED Source: [place] 10:40 AM [facility] Office Visit (FAMPWS) ---------JAYDE KYLE ([id number]) 1950 MDate Time Provider Department02/02/17 10:40 AM MACHO SOLORIO During your visit today, we recorded the following information about you: Temperature Pulse Respiration Blood pressure 98 degrees 80/minute 20/minute 100/60 Weight 98.4 kgMacho Solorio DO 02/02/2017 11:59 AM SignedPatient presents with:Follow Up: 6 monthsHPI:Jayde Kyle is a 66 year old male who presents to the office today forreview of health conditions.Concerns today:Left leg swelling, increased over the last 1-2 months, [facility] and had LLE Doppler US as well as xrays which show anklearthritis changes only, no new DVT. INR today at 2.6 range- taking Coumadin asprescribed. Does have varicose veins, admits to poor diabetes diet choiceswith increased sugars as well as standing more at work, not always wearing hiscompression stockings/socks as much.Mr. Kyle has past history of diabetes. Since our last visit he deniesexcessive thirst or increased frequency of urination, chest pain or dyspnea ,new or unusual visual symptoms and low sugar/ hypoglycemic reactions. Followsa diabetic diet some of the time. He denies having started his Metforminmedication- would like to try diet control. He reports checking his glucoseon a once a day schedule with sugars in the fasting 100-140 range. Patient'slast HgA1C wasHemoglobin A1C (%)Date Value01/28/2017 8. 6.8 )Last Ophthalmology exam was within the past 12 monthsMr. Kyle reports history of hyperlipidemia. Current therapy includesdiet and exercise. His most recent lipid panels are reviewed.Cholesterol (mg/dL)Date Value12/12/2015 145 HDL Cholesterol ( mg/dL)Date Value12/12/2015 33 LDL Cholesterol (mg/dL)Date Value12/12/2015 100 Triglyceride (mg/dL)Date Value12/12/2015 62 Mr. Kyle indicates a history of hypertension and states that he isfeeling well and denies any symptoms referable to elevated blood pressure.Specifically denies headache, chest pain, palpitations, dyspnea and peripheraledema. Patient denies any side effects of his medication(s) and is compliantwith their regimen.Last 3 Encounter BP Readings: Date: BP: 02/02/2017 100/60 12/26/2016 102/60 12/05/2016 100/60He watches his diet for sodium, low fat and low cholesterol some of the time.He does not check BP's generally. 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 Rarely cedar.Social History Main Topics Smoking status: Current Every Day Smoker Packs/day: 0.00 Years: 0.00 Types: Cigarettes, Pipe, Cigars Smokeless status: Former User Types: Chew Quit date: 09/03/1982 Comment: Quit smoking cigarettes when he was 20 years old, smokes pipe occ ANDamp; cigars daily, has used some form of tobacco x 50 years. Alcohol use: No Drug use: NoSocial History Narrative GE adenocarcinoma- poorly undiffentiated, Dr. Rose Marie Booker and Dr. Kacy Workman MDFAMILY HISTORY Stroke Mother Stroke Father tia [OTHER] Father Heart Brother Diabetes Sister Cancer Sister Comment: lymphoma x 2 pneumonia [OTHER] Maternal Grandmother Stroke Maternal Grandfather Cancer Paternal Grandfather Stroke Paternal GrandmotherAllergies:ALLERGIESAllergen Reactions- Seasonal Allergies GI Upset headacheCurrent Meds:COMPOUNDED PRESCRIPTION Organically Bound MineralsCOMPOUNDED PRESCRIPTION Vitamin O dietary supplementCOMPOUNDED PRESCRIPTION Cardio-PlusCOMPOUNDED PRESCRIPTION Cardiotrophin PMGCOMPOUNDED PRESCRIPTION Forever Arctic CCOMPOUNDED PRESCRIPTION Cataplex [id number] PRESCRIPTION Boswellia complexCOMPOUNDED PRESCRIPTION Glucosamine SynergymetFORMIN (GLUCOPHAGE) 500 mg tablet Take 1 tablet by mouth twice daily withmeals.diltiazem CD (CARDIZEM CD) 120 mg 24 hr capsule Take 1 capsule by mouth oncedaily.warfarin (COUMADIN) 1 mg tablet Take 6mg on Thursday, Thursday, and Fridays and5mg the rest of the weekwarfarin (COUMADIN) 1 mg tablet Take 6mg on Thursday, Thursday, and Fridays and5mg the rest of the weekwarfarin (COUMADIN) 5 mg tablet Take 6mg Thu,Thu,Thu,Thu,Thu and 5mg all otherdays or as directed.OTC PRODUCT [place] Sea: Take 4 capsules by mouth twice daily.ALOE VERA ORAL Take 3 Tablespoonsful by mouth once daily.Review of Systems: The remainder of the review of systems is negative.PE: 02/02/753209CX: 100/60Pulse: 80Resp: 20Temp: 36.7 ?C (98 ?F)TempSrc: Right TympanicWeight: 98.4 kg (217 lb)Gen: AANDamp;O, NAD, non-toxic appearing, Pleasant, cooperativeHEENT: NT/AC, PERRLA, EOMs intact b/l, nares clear and patent b/l, pharynxwithout erythema, exudate or lesions. Uvula midline. MMMNeck : supple, No cervical LAD, no thyromegaly, no carotid bruitsCV: RRR, normal S1S2, 3/6 HSM RUSB murmurs, no gallops, no rubs, Pulses 2+ andsymmetric in UE and LE b/lLungs: normal respiratory effort, CTA b/l, no wheezing or rhonchi or ralesAbd: soft, NT, ND, +BS, no hepatosplenomegalyMS: FROM all 4 extremities, gait antalgicNeuro: CN II-XII intact b/l, strength 5/5 b/l UE and LE, DTRs 2/4 UE and LE,sensation intact.Skin: warm, dry, intact, No rashes or lesions on exposed skin.LLE pitting edema, no calf TTP, no skin infection, + significant varicose veinspresent with hemosiderin staining of legASSESSMENT/ PLAN:1. Bilateral leg edema - ICD9: 782.3, ICD10: R60.0 (primary diagnosis)- rx prn as below, needs to wear compression stockings regularly, continueCoumadin, secondary to varicose veins- FUROSEMIDE 20 MG TABLET2. Varicose veins of both legs with edema - ICD9: 454.8, ICD10: I83.893- see above3. 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 Chronic anticoagulation - ICD9: V58.61, ICD10: Z79.01- continue same dose coumadin, recheck INR 1 month5. Chronic atrial fibrillation (HCC) - ICD9: 427.31, ICD10: I48.2- see above6. Hypercholesteremia - ICD9: 272.0, ICD10: E78.00- suboptimal control - Encouraged following a low fat, low cholesterol diet.- Discussed the benefits of regular aerobic exercise and weight loss.- Check fasting lipid panel7. Diabetic nephropathy associated with type 2 diabetes mellitus (HCC) - ICD9:250.40, 583.81, ICD10: E11.21[facility] if develops chest pain, shortness of breath, or severe worsening ofsymptoms.Discussed risks, benefits, alternatives, and potential side effects ofmedications.Patient expressed understanding and agreed with the plan.Macho Solorio [id number] [place], [place] [address]Ihggw: [phone]: [phone] Provider: MACHO SOLORIO [[id number]]Allergies As of Date: 02/02/2017 Noted Allergy ReactionSEASONAL ALLERGIES 10/04/2012 8 - GI Upset Comments: headacheDate Reviewed: 2016Reviewed by: Kita Newell LPN - Fully AssessedReason for Visit: Follow Up [171] Cmt: 6 monthsPrimary Visit Diagnosis:Bilateral leg edema [R60.0] Other Visit Diagnoses:Varicose veins of both legs with edema [ I83.893] Diabetes mellitus type 2 in nonobese (HCC) [E11.9] Chronic anticoagulation [Z79.01] Chronic atrial fibrillation (HCC) [I48.2] Hypercholesteremia [E78.00] Diabetic nephropathy associated with type 2 diabetes mellitus (HCC) [E11.21]Order(s):furosemide (LASIX) 20 mg tabletTake 1 tablet by mouth once daily. As needed for leg swellingDisp: 30 tabletRfl: 3Prescriptions as of 02/02/2017 Sig: COMPOUNDED PRESCRIPTION Organically Bound Minerals COMPOUNDED PRESCRIPTION Vitamin O dietary supplement COMPOUNDED PRESCRIPTION Cardio-Plus COMPOUNDED PRESCRIPTION Cardiotrophin PMG COMPOUNDED PRESCRIPTION [facility] C COMPOUNDED PRESCRIPTION Cataplex E2 COMPOUNDED PRESCRIPTION Boswellia complex COMPOUNDED PRESCRIPTION Glucosamine Synergy DILTIAZEM SR 120 MG 24 HR CAP Take 1 capsule by mouth once * WARFARIN 1 MG TABLET Take 6mg on Thursday, Thursday* WARFARIN 1 MG TABLET Take 6mg on Thursday, Thursday* WARFARIN 5 MG TABLET Take 6mg Thu,Thu,Thu,Sat,Sun * OTC PRODUCT [facility]: Take 4 capsules b* FUROSEMIDE 20 MG TABLET Take 1 tablet by mouth once d* ALOE VERA ORAL Take 3 Tablespoonsful by mout*Problem List As Of Date 02/02/2017 Noted Resolved 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] INVALID FOR* Drug induced neutropenia [D70.2] INVALID FOR*11/23/2012 Atrial fibrillation [I48.91] INVALID FOR* 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] INVALID FOR* Hypercholesteremia [E78.00] INVALID FOR* Diabetes mellitus type 2 in nonobese (HCC) [E11* INVALID FOR* 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*INVALID FOR*07/06/2014 CHF (congestive heart failure) (HCC) [I50.9] INVALID FOR* Aortic stenosis [I35.0] INVALID FOR* History of gastric cancer [Z85.028] INVALID FOR* Chronic atrial fibrillation (HCC) [I48.2] INVALID FOR* Chronic diastolic congestive heart failure (HCC*INVALID FOR* Nonrheumatic aortic valve stenosis [I35.0] INVALID FOR* Positive for macroalbuminuria [R80.9] INVALID FOR* Screening for intestinal cancer [Z12.10] INVALID FOR* 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*INVALID FOR* Bilateral leg edema [R60.0] INVALID FOR* Varicose veins of both legs with edema [I83.893]INVALID FOR* Chronic anticoagulation [Z79.01] INVALID FOR*Prescriptions ordered this encounter Disp Refills Start End FUROSEMIDE 20 MG TABLET 30 t* 3 02/02/2017 Route: ORAL Sig: Take 1 tablet by mouth once daily. As needed for leg swellingMedications Discontinued During This Encounter metFORMIN (GLUCOPHAGE) 500 mg tablet 60 t * 3 01/29/2017 02/02/2017 Route: ORAL Sig: Take 1 tablet by mouth twice daily with meals. Disc: Reason for discontinue is not on file. Status:Closed by MACHO SOLORIO DO on 02/02/17 PROGRESS Observed: 02/02/2017 Status: COMPLETED Source: [place] 10:30 AM [facility] HNO ID: [id number]: Dada Dos Santos LPNService: (none)Author Type: (none)Type: Progress NotesFiled: 02/02/2017 10:31 AMNote Text:patient had inr completed at [facility] CCpatients inr is 2.6 (patients inr range is 2.0-3.0)patient is currently taking 6mg Mon,Wed,Thu and 5mg all other dayspatients last dose change was on 09/10/16 due to a low level of 1.5patient has had no changes in medication and no change in dietAdvised patient to continue on the same dose(s ) and that they would onlybe contacted regarding dosage and follow up instructions after review withprovider, if a change is needed. Written instructions given and patientverbalized understanding. Presently scheduled in 4 weeks for follow upINR. HOSP Observed: 02/02/2017 Status: COMPLETED Source: [place] 10:30 AM [facility] REPOSITORY Anticoagulation Visit (COUMWS) ---------JAYDE KYLE ([id number]) 1950 MDate Time Provider Department02/02/17 10:30 AM [facility] COUMWS During your visit today, we recorded the following information about you:Dada Dos Santos LPN 02/02/2017 10:31 AM Signedpatient had inr completed at [facility] CCpatients inr is 2.6 (patients inr range is 2.0-3.0)patient is currently taking 6mg Thu,Thu,Thu and 5mg all other dayspatients last dose change was on 09/10/16 due to a low level of 1.5patient has had no changes in medication and no change in dietAdvised patient to continue on the same dose(s) and that they would only becontacted regarding dosage and follow up instructions after review withprovider, if a change is needed. Written instructions given and patientverbalized understanding. Presently scheduled in 4 weeks for follow up INR.Macho Solorio DO 02/02/2017 11:50 AM SignedAgree with Rosalee Skaggs Provider: MACHO SOLORIO [[id number]]Allergies As of Date: 2016 Noted Allergy ReactionSEASONAL ALLERGIES 10/04/2012 8 - GI Upset Comments: headacheDate Reviewed: 02/02/2017Reviewed by: Kita Newell LPN - Fully AssessedReason for Visit: Anticoagulation [8]Primary Visit Diagnosis:Atrial fibrillation, unspecified type (HCC) [I48.91] Order(s):INR (POC) [[id number]] Order #: [id number]. 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] INVALID FOR* Drug induced neutropenia [D70.2] INVALID FOR*11/23/2012 Atrial fibrillation [I48.91] INVALID FOR* 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] INVALID FOR* Hypercholesteremia [E78.00] INVALID FOR* Diabetes mellitus type 2 in nonobese (HCC) [E11*INVALID FOR* 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*INVALID FOR* 07/06/2014 CHF (congestive heart failure) (HCC) [I50.9] INVALID FOR* Aortic stenosis [I35.0] INVALID FOR* History of gastric cancer [Z85.028] INVALID FOR* Chronic atrial fibrillation (HCC) [I48.2] INVALID FOR* Chronic diastolic congestive heart failure (HCC*INVALID FOR* Nonrheumatic aortic valve stenosis [I35.0] INVALID FOR* Positive for macroalbuminuria [R80.9] INVALID FOR* Screening for intestinal cancer [Z12.10] INVALID FOR*Follow-up and Disposition History RecordedEncounter Number: [id number] Status:Closed by CHICA ARELLANO MA on 02/02/17 PROTIME Collected: 01/28/2017 Status: F Source: [place] 4:05 PM [facility] REPOSITORY TYPE CODE TESTS RESULT OUT OF RANGE REFERENCE UNITS LAB PSEC High 8.4-13.0 sec PT 33.1 Sec LAB INR High 0.8-1.2 PT 3.0 INR Result Comment: The PT/INR can be used to monitor the therapeutic effect of oral anticoagulants, such as warfarin. The recommended therapeutic range is an INR of 2.0 to 3.0 for most applications, including treatment and prevention of venous thrombosis,treatment of pulmonary embolism, prevention of strokes/TIA in patients with atrial fibrillation, prevention and treatment of thrombosis in patients with a lupus anticoagulant and prevention of systemic embolization in patients with heart valve disorders.There are certain conditions where clinicians may decide to use a lower or higher therapeutic range eg. 1.5 to 1.9 for secondary prevention of idiopathic venous thromboembolism and an INR 2.5 to 3.5 for older generation mechanical heart valves.Maximilianoell, et al. CHEST 2004: 126:204S to 233S. Performed By: #### PT ####[facility] [address] [place], [place] [phone] HEMOGLOBIN A1C Collected: 01/28/2017 Status: F Source: [place] 3:43 PM [facility] REPOSITORY TYPE CODE TESTS RESULT OUT OF REFERENCE UNITS RANGE LAB HGBA1C High 4.3-5.6 % Hemoglobin 8.0 A1c Result Comment: [place] [employer] guidelines indicate that patients with HgbA1c in the range 5.7-6.4% are at increased risk for development of diabetes , and intervention by lifestyle modification may be beneficial. HgbA1c greater or equal to 6.5% is considered diagnostic of diabetes. LAB HBA0 mg/dL Est. Average 183 Glucose Result Comment: eAG: (Estimated average glucose) is a calculated value from HgbA1c and is route sales representative of the average blood glucose level in the last 2-3 month period. Performed By: #### HBA1C ####[facility] [place], [place] [phone] ALBUMIN/CREAT RATIO Collected: 01/28/2017 Status: F Source: [place] 3:43 PM [facility] REPOSITORY TYPE CODE TESTS RESULT OUT OF REFERENCE UNITS RANGE LAB UCRR 20-300 mg/dL 104.3 Creatinine,Ur ine,Ran LAB UALBR High 0.0-23.0 mg/L Albumin 374.6 Urine Random LAB UALBCR High 0-30 mg/g 359 Albumin/Creat Ratio Result Comment: 30 to 300 mg/g indicates an increased risk for diabetic nephropathy. Greater than 300 mg/g is consistent with clinical nephropathy. (Am J Kidney Disease 1995, 25:107) Performed By: #### UACR ####[facility] [place], [place] [phone] OBSOLETE Observed: 01/26/2017 Status: COMPLETED Source: [place] 12:00 AM [facility] REPOSITORY Refill (NATE) ---------JAYDE KYLE ([id number]) 1950 MDate Time Provider Department01/26/17 ABHISHEK HEAD During your visit today, we recorded the following information about you:Bob Camp, RN, RN 01/26/2017 9:43 AM SignedPharmacy fax requesting refills as follows:Pending Prescriptions Disp Refills DILTIAZEM SR 120 MG 24 HR CAP 90 capsule 3 Sig: Take 1 capsule by mouth once daily. MIKE: No Please review and advise.Bob Pachecoyaredrenea MALIvlad has been identified by name and date of : YesRX INSTRUCTIONS:Patient aware RX will be sent to pharmacy. No need to notify patient.Keiko Cantrell MD 01/26/2017 11:11 AM SignedThe following approved medication requests have been transmitted electronically.Signed Prescriptions Disp Refills diltiazem CD (CARDIZEM CD) 120 mg 24 hr capsule 90 capsule 3 Sig: Take 1 capsule by mouth once daily. MIKE: No Authorizing Provider: ABHISHEK HEAD MDAdam Gilmor, RN, RN 01/26/2017 2:08 PM Signedescript confirmedAllergies As of Date: 01/26/2017 Noted Allergy ReactionSEASONAL ALLERGIES 10/04/2012 8 - GI Upset Comments: headacheDate Reviewed: Reviewed by: Jacklyn Haque LPN - Fully AssessedReason for Visit: Refill Request [94]Order(s): diltiazem CD (CARDIZEM CD) 120 mg 24 hr capsuleTake 1 capsule by mouth once daily.Disp: 90 capsuleRfl : 3Prescriptions as of 01/26/2017 Sig: DILTIAZEM SR 120 MG 24 HR CAP Take 1 capsule by mouth once * WARFARIN 1 MG TABLET Take 6mg on Thursday, Thursday* WARFARIN 1 MG TABLET Take 6mg on Thursday, Thursday* WARFARIN 5 MG TABLET Take 6mg Thu,Thu,Thu,Sat,Sun * OTC PRODUCT [facility]: Take 4 capsules b* ALOE VERA ORAL Take 3 Tablespoonsful by mout*Problem List As Of Date 01/26/2017 Noted Resolved 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] INVALID FOR* Drug induced neutropenia [D70.2] INVALID FOR*11/23/2012 Atrial fibrillation [I48.91] INVALID FOR* 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] INVALID FOR* Hypercholesteremia [E78.00] INVALID FOR* Diabetes mellitus type 2 in nonobese (HCC) [E11*INVALID FOR* 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*INVALID FOR*07/06/2014 CHF (congestive heart failure) (HCC) [I50.9] INVALID FOR* Aortic stenosis [ I35.0] INVALID FOR* History of gastric cancer [Z85.028] INVALID FOR* Chronic atrial fibrillation (HCC) [I48.2] INVALID FOR* Chronic diastolic congestive heart failure ( HCC*INVALID FOR* Nonrheumatic aortic valve stenosis [I35.0] INVALID FOR* Positive for macroalbuminuria [R80.9] INVALID FOR* Screening for intestinal cancer [Z12.10] INVALID FOR* Prescriptions ordered this encounter Disp Refills Start End DILTIAZEM SR 120 MG 24 HR CAP 90 c* 3 01/26/2017 Route: ORAL Sig: Take 1 capsule by mouth once daily.Medications Discontinued During This Encounter diltiazem CD (CARDIZEM CD) 120 mg 24* 30 c* 6 05/26/2016 01/26/2017 Route: ORAL Sig: Take 1 capsule by mouth once daily. Disc: Reason for discontinue is not on file. Status:Closed by BOB CAMP on 01/26/17 OBSOLETE Observed: 01/20/2017 Status: COMPLETED Source: [place] 12:00 AM [facility] REPOSITORY Refill (FAMPWS) ---------JAYDE KYLE ([id number]) 1950 MDate Time Provider Department01/20/17 [facility] During your visit today, we recorded the following information about you:Norris Aguillon, Josh 01/22/2017 9:29 AM SignedPlease address refill request for patient. Patient is due for INR.GABE: 06/13/2016NOV: 02/02/2017Pharmacist Refill Authorization ReviewName: Jayde Randle: [id number]: 01/22/2017Time: 9:29 AMRefill authorization request(s) received via pharmacy request and reviewedunder effective consult agreement. Upon review , did confirm that an activepatient-provider relationship exists and that the prescriber is a participatingphysician under the consult agreement.The medication(s) fall under the following categories: Category 3: 1 corresponding medication(s) does not qualify for renewal due toneeding a physician consult and review.Additional actions taken: Contacted prescriber to discuss.Norris Aguillon, PharmDPharmacy Managed Authorization [place]Phone Current Outpatient Prescriptions:warfarin (COUMADIN) 1 mg tablet Take 6mg on Thursday, Thursday, and Fridays and5mg the rest of the weekwarfarin (COUMADIN) 5 mg tablet Take 6mg Thu,Thu,Thu,Sat,Sun and 5mg all otherdays or as directed.diltiazem CD (CARDIZEM CD) 120 mg 24 hr capsule Take 1 capsule by mouth oncedaily.OTC PRODUCT [place]: Take 4 capsules by mouth twice daily.ALOE VERA ORAL Take 3 Tablespoonsful by mouth once daily.No current facility-administered medications for this visit.Allergies As of Date: 01/20/2017 Noted Allergy ReactionSEASONAL ALLERGIES 10/04/2012 8 - GI Upset Comments: headacheDate Reviewed: 12/26/2016Reviewed by: Jacklyn Haque LPN - Fully AssessedReason for Visit: Refill Request [94]Order(s):warfarin (COUMADIN) 1 mg tabletTake 6mg on Thursday, Thursday, and Fridays and 5mg the rest of the weekDisp: 30 tabletRfl: 5Prescriptions as of 01/20/2017 Sig: WARFARIN 1 MG TABLET Take 6mg on Thursday, Thursday* WARFARIN 1 MG TABLET Take 6mg on Thursday, Thursday* WARFARIN 5 MG TABLET Take 6mg Thu,Thu,Thu,Sat,Sun * DILTIAZEM SR 120 MG 24 HR CAP Take 1 capsule by mouth once * OTC PRODUCT [place]: Take 4 capsules b* ALOE VERA ORAL Take 3 Tablespoonsful by mout*Problem List As Of Date 01/20/2017 Noted Resolved 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] INVALID FOR* Drug induced neutropenia [D70.2] INVALID FOR*11/23/2012 Atrial fibrillation [I48.91] INVALID FOR* 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] INVALID FOR* Hypercholesteremia [E78.00] INVALID FOR* Diabetes mellitus type 2 in nonobese (HCC) [E11*INVALID FOR* 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*INVALID FOR*07/06/2014 CHF (congestive heart failure) (HCC) [I50.9] INVALID FOR* Aortic stenosis [ I35.0] INVALID FOR* History of gastric cancer [Z85.028] INVALID FOR* Chronic atrial fibrillation (HCC) [I48.2] INVALID FOR* Chronic diastolic congestive heart failure ( HCC*INVALID FOR* Nonrheumatic aortic valve stenosis [I35.0] INVALID FOR* Positive for macroalbuminuria [R80.9] INVALID FOR* Screening for intestinal cancer [Z12.10] INVALID FOR* Prescriptions ordered this encounter Disp Refills Start End WARFARIN 1 MG TABLET 30 t* 5 01/23/2017 Sig: Take 6mg on Thursday, Thursday, and Fridays and 5mg the rest of the weekEncounter Number: [id number] Status:Closed by MACHO SOLORIO DO on 01/23/17 LAURITA Observed: 01/20/2017 Status: COMPLETED Source: [place] 12:00 AM [facility] REPOSIT[facility] ---------JAYDE KYLE ([id number]) 1950 MDate Time Provider Department01/20/17 MACHO SOLORIO [facility] During your visit today, we recorded the following information about you:Norris Aguillon, Josh 01/22/2017 9:29 AM SignedPlease address refill request for patient. Patient is due for INR.GABE: 06/13/2016NOV: 02/02/2017Pharmacist Refill Authorization ReviewName: Jayde Randle: [id number]: 01/22/2017Time: 9:29 AMRefill authorization request(s) received via pharmacy request and reviewedunder effective consult agreement. Upon review , did confirm that an activepatient-provider relationship exists and that the prescriber is a participatingphysician under the consult agreement.The medication(s) fall under the following categories: Category 3: 1 corresponding medication(s) does not qualify for renewal due toneeding a physician consult and review.Additional actions taken: Contacted prescriber to discuss.Norris Aguillon, PharmDPharmacy Managed Authorization [employer] Current Outpatient Prescriptions:warfarin (COUMADIN) 1 mg tablet Take 6mg on Thursday, Thursday, and Fridays and5mg the rest of the weekwarfarin (COUMADIN) 5 mg tablet Take 6mg Thu,Thu,Thu,Sat,Sun and 5mg all otherdays or as directed.diltiazem CD (CARDIZEM CD) 120 mg 24 hr capsule Take 1 capsule by mouth oncedaily.OTC PRODUCT [place]: Take 4 capsules by mouth twice daily.ALOE VERA ORAL Take 3 Tablespoonsful by mouth once daily.No current facility-administered medications for this visit.Macho Solorio DO 01/23/2017 7:12 AM SignedPatient is OVERDUE for INR, please call to scheduleBrook Flores Ma 01/23/2017 8:57 AM SignedPatient's son Patrick notified, will have mother call back in later to schedule.Allergies As of Date: 01/20/2017 Noted Allergy ReactionSEASONAL ALLERGIES 10/04/2012 8 - GI Upset Comments: headacheDate Reviewed: 12/26/2016Reviewed by: Jacklyn Haque LPN - Fully AssessedReason for Visit: Refill Request [94]Order (s):warfarin (COUMADIN) 1 mg tabletTake 6mg on Thursday, Thursday, and Fridays and 5mg the rest of the weekDisp: 30 tabletRfl: 5Prescriptions as of 01/20/2017 Sig: WARFARIN 1 MG TABLET Take 6mg on Thursday, Thursday* WARFARIN 1 MG TABLET Take 6mg on Thursday, Thursday* WARFARIN 5 MG TABLET Take 6mg Thu,Thu,Thu,Sat,Sun * DILTIAZEM SR 120 MG 24 HR CAP Take 1 capsule by mouth once * OTC PRODUCT [place]: Take 4 capsules b* ALOE VERA ORAL Take 3 Tablespoonsful by mout*Problem List As Of Date 01/20/2017 Noted Resolved 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] INVALID FOR* Drug induced neutropenia [D70.2] INVALID FOR*11/23/2012 Atrial fibrillation [I48.91] INVALID FOR* 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] INVALID FOR* Hypercholesteremia [ E78.00] INVALID FOR* Diabetes mellitus type 2 in nonobese (HCC) [E11*INVALID FOR* 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*INVALID FOR*07/06/2014 CHF (congestive heart failure) (HCC) [ I50.9] INVALID FOR* Aortic stenosis [I35.0] INVALID FOR* History of gastric cancer [Z85.028] INVALID FOR* Chronic atrial fibrillation (HCC) [I48.2] INVALID FOR* Chronic diastolic congestive heart failure (HCC*INVALID FOR* Nonrheumatic aortic valve stenosis [I35.0] INVALID FOR* Positive for macroalbuminuria [R80.9] INVALID FOR* Screening for intestinal cancer [Z12.10] INVALID FOR*Prescriptions ordered this encounter Disp Refills Start End WARFARIN 1 MG TABLET 30 t* 5 01/23/2017 Sig: Take 6mg on Thursday, Thursday, and Fridays and 5mg the rest of the weekEncounter Number: [id number] Status:Closed by MACHO SOLORIO DO on 01/23/17 PROGRESS Observed: 01/01/2017 Status: COMPLETED Source: [place] 3:00 PM [facility] REPOSITORY HNO ID: [id number]: Jaqueline Alcala RNService: (none) Author Type: (none)Type: Progress NotesFiled: 01/02/2017 6:15 AMNote Text:OPERATIVE NOTATION FOR [facility] SURGICAL PROCEDURE.2016Jayde Kyle 1950 [id number] malePROCEDURE: EGD WITH BIOPSY - [id number] and COLONOSCOPY - [id number]: Eva Hassan M.D. 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- Hyperlipidemia- Neuropathy (HCC )- KEYSHAWN (obstructive sleep apnea)- Phimosis- Screening for colon cancer 2016COMORBIDITIES - Coumadin Tx, CHF and NIDDMPost Op Occurrences - NoneWound Classification - Clean ContaminatedOperative note dictated in the [facility] dictationsystem.Lety Hassan MD CNOP Observed: 01/01/2017 Status: COMPLETED Source: [place] 12:00 AM [facility] REPOSITORY Operative Note (Enc) (GENSWS) ---------Progress Notes:Jaqueline Alcala RN 01/02/2017 6:15 AM SignedOPERATIVE NOTATION FOR [facility] SURGICAL PROCEDURE.2016Jayde Kyle 1950 [id number] malePROCEDURE: EGD WITH BIOPSY - [id number] and COLONOSCOPY - 13723-908WFLTYAJ: Eva Hassan M.D. 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- Hyperlipidemia- Neuropathy (HCC)- KEYSHAWN ( obstructive sleep apnea)- Phimosis- Screening for colon cancer 12/2016COMORBIDITIES - Coumadin Tx, CHF and NIDDMPost Op Occurrences - NoneWound Classification - Clean ContaminatedOperative note dictated in the [facility] dictation system.Lety Hassan [facility] Status:Closed by ELTY HASSAN MD on 01/02/17[facility] hospitaler Number: [id number] EMERGENCY DEPARTMENT Observed: 12/31/2016 Status: F Source: [place] SUMMARY 6:35 PM [facility] REPOSITORY [facility] [id number] JASON MOONEY [address]Qafovzkfp Department SummaryMR#: [id number] Acct: [id number]: JAYDE KYLE ANGEL Rep #: [id number]: [birth year] From: Gosia Payton MDPCP: Macho Solorio DO Status: DEP ERDATE OF SERVICE: 12/26/2016CHIEF COMPLAINT:Leg edema.CARSON HISTORY:The patient is a 66-year-old male with a history of gastric cancer several years ago,diabetes, atrial fibrillation. He has noticed a 3-week history of left ankle and leg painand swelling. 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 He is currently on Coumadinsecondary to AFib. His INR was 2.2 last week.PHYSICAL EXAMINATION: VITAL SIGNS: On arrival, regular blood pressure 94/68, temp 97.6, heart rate 103,respiratory rate 17, pulse ox 99% on room air.GENERAL: The patient is lying in bed in no acute distress.HEAD AND NECK: Normal.HEART: Regular.LUNGS: Clear.ABDOMEN: Soft, nontender.EXTREMITIES: Lower extremity examination reveals 3+ left lower extremity edema with somemild tenderness, specifically at the ankle. There is no erythema or sign of cellulitis.He does have strong distal pulses. He has chronic paresthesias to his feet. It isunchanged, but has good strength and range of motion.HOSPITAL COURSE:Left ankle x-ray shows diffuse swelling, no fracture noted. CBC and chemistry studies aregrossly unremarkable. His glucose is 153. His INR is 1.5. Venous ultrasound of the leftleg shows no evidence of DVT. I did apply an Lefty wrap to the left leg with some lightcompression and then explained to the how to do this. The patient states he isactually supposed to stop his Coumadin for the next couple of days for a planned procedurenext week. At this time, I reassured him that there is no clot in the leg. There is nofracture. He will follow up with his PCP.DISPOSITION:Discharge.IMPRESSION:Left leg edema.Gosia Payton MDT: NTSJOB: [id number] <Electronically signed by Gosia Payton MD>Date Gosia Payton [facility] Signature (If Indicated): Date CC: Macho Solorio DO Date Dictated: 12/27/1639Date Transcribed: 12/27/1639Transcriptionist:Signed OPERATIVE REPORT Observed: 12/31/2016 Status: F Source: [place] 7:12 AM [facility] REPOSITORY [facility] [address] [place], [place] [address]Dreqwlhjb ReportMR#: [id number] Acct: [id number]: JAYDE KYLE JUNIOR Rep #: [id number]: 1950 66 From : Lety Hassan MDPCP: Macho Solorio DO Status: DEP CLIDATE OF SERVICE: 12/30/2016DATE OF SERVICE:12/30/2016PRIMARY CARE PHYSICIAN:Dr. PritchardONCOLOGIST:PRAMOD MuñozREOPERATIVE DIAGNOSIS:History of gastroesophageal junction carcinoma. Need for screening for intestinalmalignancy.POSTOPERATIVE DIAGNOSES:Scarred inflammatory changes at the gastroesophageal junction. Chronic antral gastritis.Sigmoid diverticulosis.PROCEDURES:Esophagogastroduodenoscopy with biopsies. Colonoscopy.SURGEON:Lety Hassan MDANESTHESIA:Neisha.DESCRIPTION OF PROCEDURE:Time out and informed consent was obtained. A 66-year-old gentleman was taken to theendoscopy suite. He received fluid supplementation prior to intervention. He receivedmonitored anesthesia care. Oropharynx was anesthetized with Cetacaine, placed in the leftlateral decubitus position, GF-130 gastroscope was inserted in the esophageal inlet,advanced without difficulty. Proximal, mid, and distal esophagus was unremarkable. EGjunction was noted to be indurated and inflamed and scarred. There was no exophytic mass.Scope was advanced into the stomach, advanced down to the antral area, where chronic flaterythema was noted consistent with chronic gastritis. Scope was advanced through thepylorus. The first and second portion of the duodenum were inspected, this wasunremarkable. Scope was withdrawn back into the stomach. Antral biopsy was obtained.The scope was retroflexed. Photographs were obtained. The GE junction was biopsied bothfrom the cardia viewpoint and from the distal esophageal approach. The tissue bled ____ readily. Again, no distinct mass lesions were identified. The cardia itself was notremarkable. Multiple samples were obtained having ____ then the scope was furtherwithdrawn without additional abnormality.The patient was kept in the left lateral decubitus position. Digital rectal examperformed, 2+ smooth prostate, very light anal tone, no mass lesions. Flexible CF-140colonoscope was inserted into the rectum and advanced through a very tortuous colon.Transabdominal pressure was required to get the scope to go to the cecum. Cecum andileocecal valve area was achieved. Bowel prep unfortunately was fair to poor. There wassignificant amount of thick liquidy stool with solid fragments throughout. The scope wascarefully withdrawn from the ascending, transverse, descending, and sigmoid colon.Sigmoid diverticulosis was identified. No evidence of acute mass lesions. The scope waswithdrawn to the rectum, retroflexed, and anorectal verge inspected, some mildhemorrhoidal changes noted. Excess fluid and air was aspirated free. The procedure wascompleted. He tolerated it well.IMPRESSION:Scarred inflammatory changes at the gastroesophageal junction. Chronic antral gastritis.Biopsies pending. Sigmoid diverticulosis with poor bowel prep.The patient will be notified of pathology results as they become available. Previoushistory suggests that he has not had a previous colonoscopy. Next screening exam in 10years.The patient will be notified of pathology results as soon as they become available.LESLEE Lilly C: Dr. Moo Amador MDT: NTSJOB: [id number] <Electronically signed by Lety Hassan MD>Date Lety Hassan [facility] [place] Signature (If Indicated): Date CC: Macho Solorio DO; Roc Amador MD; Lety Hassan MD Date Dictated: 12/30/16 1043Date Transcribed: 12/30/16 1043Transcriptionist:Signed GASTRIC BIOPSY Observed: 12/30/2016 Status: F Source: [place] 10:03 AM [facility] REPOSITORY Patient: JAYDE KYLE JUNIOR : 1950 (66 /M) Acct Num: [id number] Phys: Ivan CUMMINS,Lety Unit Num: [id number] Loc: EN Specimen: Received: 12/30/16 - 1057 Spec Type: Gastric Bx TISSUES TISSUES: COMMENT A. The results of immunohistochemistry for Helicobacter pylori will be reportedseparately ([id number]). B. Alcian blue/ PAS stain with matched control is used in the evaluation of thespecimen. Correlation with clinical, endoscopic findings and appropriate follow up are necessary. GROSS DESCRIPTION A - Received is one container labeled with the patient's name and designated antral biopsy. The specimen consists of one irregular fragment of light nichols soft tissue that measures 0.5 x 0.2 x 0.1 cm. The specimen is totally submittedin one cassette. B - Received is one container labeled with the patient's name and designated GE junction biopsy. The specimen consists of multiple irregular fragments of light nichols soft tissue that in aggregate measure 2 x 0.3 x 0.1 cm. The specimen is totally submitted in one cassette. / SJ:higinio 12/30/16 TC:3 CPT: 37942 x2, 39099 HEADER OPERATION: EGD PRE-OP DIAGNOSIS: History of cancer TISSUE SUBMITTED: A - Antral biopsy, B - GE junction biopsy MICROSCOPIC DESCRIPTION Slides are reviewed. A. The specimen shows fragments of gastric mucosa with chronic inflammatory cell infiltrates in the lamina propria consisting of lymphocytes and plasma cells, consistent with mild chronic gastritis. MICROSCOPIC DIAGNOSIS A. Antral biopsy: Mild gastritis. B. GE junction, biopsy: Fragments of squamous epithelium and gastric mucosa with chronic inflammation. 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 Negative for dysplasia or malignancy in the submitted specimen. SJ:higinio 12/31/16 Signed Freemanchava Sood 12/31/16 <signature on file> Performed By: #### PGASB ####[facility] [address] [facility] [place], [place], [address] PROTHROMBIN TIME Collected: 12/30/2016 Status: F Source: [place] FINGERSTICK 8:01 AM [facility] REPOSITORY TYPE CODE TESTS RESULT OUT OF REFERENCE UNITS RANGE LAB L9200.1001 High 11.9-14.4 SEC PROTIME 18.8 ISTAT Result Comment: Reference Range 11.9 - 14.4 Performed By: #### L9200.1001 ####[facility] LaboratoryPoint of [address] [place] [address] INR FINGERSTICK Collected: 12/30/2016 Status: F Source: [place] 8:01 AM [facility] REPOSITORY TYPE CODE TESTS RESULT OUT OF RANGE REFERENCE UNITS LAB L9200.2000 Normal INR 1.60 ISTAT Result Comment: Critical Value > 3.5 Performed By: #### L9200.1999 ####[facility] LaboratoryPoint of [address] [place] [address] IMMUNOHISTOCHEMISTRY Observed: 12/30/2016 Status: F Source: [place] 12:00 AM [facility] REPOSITORY Patient: JAYDE KYLE JUNIOR : 1950 (66 /M) Acct Num: [id number] Phys: Ivan CUMMINS,Lety Unit Num: [id number] Loc: EN Specimen: [id number] Received: 12/31/16 - 1048 Spec Type: IMMUNO TISSUES TISSUES: SPECIMEN INFORMATION: Tissue Source: A - Antral biopsy Clinical Info: History of cancer Specimen Number: [id number] CPT code: 30389 METHODOLOGY: Deparaffinized sections of prefer/formalin-fixed tissue or PAP /DQ stained slides are incubated with monoclonal/polyclonal antibodies/ oligonucleotide probes. Localization is made via biotin free immunoperoxidase method. Appropriate controls are performed and reacted as expected. Results on target cell population are indicated in the following table: RESULTS: ANTIBODY / CLONE RESULT Block A H Pylori (polyclonal) negative These tests were developed and their performance characteristics determined by [facility]. They may not have been cleared or approved by the U.S. Food and Drug Administration. The FDA has determined that such clearance or approval is not necessary. INTERPRETATION: A. Antral biopsy: Negative for Helicobacter pylori organisms. SJ:higinio 12/31/16 PHYSICIAN AND INSTITUTION [address] [address] Signed Freeman Sood 12/31/16 <signature on file> Performed By: #### PIMM ####[facility] [address] [place], [address] VENOUS DUPLEX LOWER Observed: 12/28/2016 Status: F Source: [place] EXTREMITY 9:01 AM [facility] REPOSITORY [facility]ITAL[facility] [address] [place] [address]Jhyqhv Duplex US, Pmpyikrhji73/26/17 1517#: [id number] Acct: [id number]: JAYDE KYLE JUNIOR Rep #: [id number]: 1950 66 From: Smooth Arreola Dr: Status: DEP EROrdering Dr: Gosia Payton MD Date: Location: ED Sex: M CAdmitted:Reason For Study: Swelling LLERIGHT LEFTCFV is compressible, spontaneous, phasic, GSV is normal.competent and demonstrates normal CFV is compressible, spontaneous, phasic,augmentation. competent, and demonstrates normalProcedure augmentation.Exam performed portable in ED. FV is compressible, spontaneous, phasic,A preliminary report was called and/or faxed competent and demonstrates normalto Dr. Payton. augmentation.POP V is compressible, spontaneous,phasic,competent and demonstrates normalaugmentation.T/P Trunk is compressible.PTV is compressible.LT PerV is compressible.Interpretation SummaryDeep veins of the left lower extremity are patent and compressible segmentally. There is noevidence of left lower extremity deep vein thrombosis. Valvular competence appears intactwithinthe proximal deep venous system on the left . The left greater saphenous vein appears patentandcompressible segmentally. Ordering Physician: Gosia PaytonReferring Physician: Gosia PaytonPerformed By: Concha Allen RDCS, RVT 12/28/16 0901Date Smooth Au MDCC: Gosia Payton MD; Macho Solorio DO Date Dictated: 12/26/16 1517Date Transcribed: 12/28/16 0901Transcriptionist:Signed DISCHARGE INSTRUCTION Observed: 12/26/2016 Status: F Source: [place] 5:11 PM [facility] REPOSITORY [facility] [address] [address]Cetpmsxpm Fpsfcpkyxfi00/26/17 1711MR#: [id number] Acct: [id number]: JAYDE KYLE JUNIOR Rep #: [id number]: [birth year] From: Gosia Payton MDPCP: Macho Solorio DO Status: REG ERED Disposition- Plan for ED Patient:Disposition: Home or Assisted LivingChief Complaint: EdemaInstructions: ED Leg Swelling UnilateralReferrals:Macho Solorio DO [ Primary Care Provider] - 1 Week if not improvingWhat to do if you have ProblemsFor any increased pain, shortness of breath, bleeding, nausea or vomiting, chest pain, or anyunexpected problems, contact your Primary Care Provider. Call [facility] ([phone])or report to the closest Emergency Room.Call 911 if necessary. 1711 <Electronically signed by Gosia Payton MD>Date Gosia Payton MDCosigner Signature (If Indicated): Date CC: Macho Solorio DO CBC W/DIFF, AUTOMATED Collected: 12/26/2016 Status: F Source: [place] 3:50 PM [facility] REPOSITORY TYPE CODE TESTS RESULT OUT OF RANGE REFERENCE UNITS LAB L100.1000 Normal 4.4-11.0 K/mm3 WBC 7.7 LAB L100.1200 Normal 4.6-6.2 M/mm3 RBC 4.61 LAB L100.1300 Normal 13.0-16.5 g/dl HGB 14.8 LAB L100.1400 Normal 40-54 % HCT 43.1 LAB L100.1500 Normal 80-94 fL MCV 93.5 LAB L100.1600 High 27.0-32.0 pg MCH 32.1 LAB L100.1700 Normal 32-36 g/gl MCHC 34.3 LAB L100.1810 High 11.6-14.6 % RDW 15.5 CV LAB L100.1820 High 35.1-43.9 fl RDW 51.5 SD LAB L100.1900 Normal 150-450 K/mm3 PLT 188 LAB L100.2000 Normal 6.2-12.0 fl MPV 11.7 LAB L100.2100 Normal 47-70 % NEUT% 65.6 LAB L100.2200 Normal 19-41 % LY% 21.0 LAB L100.2300 High 0-10 % MONO% 10.6 LAB L100.2400 Normal 0-5 % EO% 2.0 LAB L100.2500 Normal 0-1 % BASO% 0.5 LAB L100.2550 Normal 0.0-0.9 % IM 0.300 GRAN % Result Comment: IG% - Immature Granulocytes (promyelocytes, myelocytes andmetamyelocytes) > 1% indicates that a LEFT SHIFT is Present. LAB L100.2620 Normal 2.0-7.7 X10 3/uL Absolute Neut 5.0 LAB L100.2720 Normal 0.83-4.51 X10 3/ul Absolute Lymph 1.61 Performed By: #### L100.0100, L500.2500, L300.3900 ####[facility] [address] [place], [address] BASIC METABOLIC Collected: 12/26/2016 Status: F Source: [place] PROFILE (BMP) 3:50 PM [facility] REPOSITORY TYPE CODE TESTS RESULT OUT OF RANGE REFERENCE UNITS LAB L501.0100 High 70-110 mg/dL GLU 153 Result Comment: Fasting Glucose result greater than or equal to 126 mg/ dLsuggests DIABETES MELLITUS per A.D.A. criteria. LAB L501.1000 High 7-18 mg/dL BUN 25 LAB L501.1100 Normal 0.70-1.30 mg/dL CREAT,SERUM 1.06 Result Comment: The validity of the calculated GFR AND GFRAA in patients over70 years has not been determined. Clinical correlation isessential. LAB L501.1110 Normal >60 mL/min EST GFR 74 Result Comment: Non- GFR Calc LAB L501.1115 Normal >60 mL/min EST GFR - 90 AA Result Comment: GFR Calc LAB L501.1255 Normal ml/min Estimated 68.55 CRCL LAB L501.1300 High 10-20 RATIO BUN/CRE 23.6 LAB L501.2200 Normal 8.5-10 mg/dL CA 8.8 .1 LAB L501.5300 Low 136-14 mmol/L NA 134 5 LAB L501.5600 Normal 3.5-5. mmol/L K 4.1 1 LAB L501.5900 Normal 98-107 mmol/L CL 100 LAB L501.6100 Normal 21.0-3 mmol/L CO2 30.0 2.0 LAB L501.6200 Low 5-15 GAP 4 Performed By: #### L100.0100, L500.2500, L300.3900 ####[facility] [address] [place], [address] PROTHROMBIN TIME W/INR Collected: 12/26/2016 Status: F Source: [place] 3:50 PM [facility] REPOSITORY TYPE CODE TESTS RESULT OUT OF RANGE REFERENCE UNITS LAB L300.4150 High 11.7-14.9 SECONDS PROTIME 17.3 LAB L300.4200 Normal INR 1.5 Performed By: #### L100.0100, L500.2500, L300.3900 ####[facility] [address] [place], [address] ANKLE MIN 3 VIEWS Observed: 12/26/2016 Status: F Source: [place] 3:09 PM [facility] REPOSITORY [facility]ITALImaging [address] [place], [place] [address]Evhvobw 4dAnkle min 3 ViewsMR#: [id number] Acct: [id number]: JAYDE KYLE JUNIOR Rep #: [id number]: 1950 M 66 From: Caesar James DOPCP: Macho Solorio DO Status: REG ERStudy: Ankle min 3 Views Date of Exam: 12/26/16Exam# [id number] Ordering Dr: Gosia Payton MDSTUDY: X-RAY - LEFT ANKLEREASON FOR EXAM: Male, 66 years old. Pain and swellingTECHNIQUE: 3 view(s) of the ankle.COMPARISON: None. FINDINGS:There is diffuse edema of the distal calf extending to the ankle with edemaoverlying the lateral with edema extending dorsal forefoot region.Normal tibia and fibula with a normal medial and lateral malleolarfracture.Normal distal tibiofibular syndesmosis. Normal ankle mortise. Normaltibiotalar articulation within normal talar dome. There is no demonstratedtibiotalar joint effusion. There is hypertrophy of the posterior talarprocess.There is an enthesophyte at the teno-osseous insertion of Achilles tendon.Normal talonavicular, calcaneocuboid, and tarsal bones.No demonstrated fracture. ORDER #: [id number] RAD/Ankle min 3 ViewsIMPRESSION:1. Diffuse swelling of the distal calf, ankle, and dorsal forefoot region.2. No demonstrated fracture.3. No suspected tibiotalar joint effusion.4. Hypertrophy of the posterior lateral talar process.5. Enthesophyte at the teno-osseous insertion of Achilles tendon.Electronically Signed:Caesar James DO at 16:41 EDTTel , Service support , KF: Gosia Payton MD; Macho Solorio DO Janitor Helper:Signed CNOV Observed: 12/26/2016 Status: COMPLETED Source: [place] 2:00 PM [facility] REPOSITORY Office Visit (WSTR) ---------JAYDE KYLE ([id number]) 1950 MDate Time Provider Department12/26/16 2:00 PM HELIO RUFF ([facility]) [facility] During your visit today, we recorded the following information about you: Temperature Pulse Respiration Blood pressure 97.8 degrees 68/minute 16/minute 102/60 Weight 100.6 kgReferring Provider: SELF [200]Allergies As of Date: 12/26/2016 Noted Allergy ReactionSEASONAL ALLERGIES 10/04/2012 8 - GI Upset Comments: headacheDate Reviewed: 2016Reviewed by: Jacklyn Haque LPN - Fully AssessedReason for Visit: Left ankle pain [Other] Cmt: x 2 weeks- cannot recall an injuryPrimary Visit Diagnosis:APPOINTMENT CANCELLEDPrescriptions as of 12/26/2016 Sig: WARFARIN 1 MG TABLET Take 6mg on Thursday, Thursday* WARFARIN 5 MG TABLET Take 6mg Thu,Thu,Thu,Sat,Sun * DILTIAZEM SR 120 MG 24 HR CAP Take 1 capsule by mouth once * OTC PRODUCT [facility]: Take 4 capsules b* ALOE VERA ORAL Take 3 Tablespoonsful by darin*Problem List As Of Date 12/26/2016 Noted Resolved 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] INVALID FOR* Drug induced neutropenia [D70.2] INVALID FOR*11/23 Atrial fibrillation [I48.91] INVALID FOR* 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] INVALID FOR* Hypercholesteremia [E78.00] INVALID FOR* Diabetes mellitus type 2 in nonobese (HCC) [E11*INVALID FOR* 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*INVALID FOR* 07/06/2014 CHF (congestive heart failure) (HCC) [I50.9] INVALID FOR* Aortic stenosis [I35.0] INVALID FOR* History of gastric cancer [Z85.028] INVALID FOR* Chronic atrial fibrillation (HCC) [I48.2] INVALID FOR* Chronic diastolic congestive heart failure (HCC*INVALID FOR* Nonrheumatic aortic valve stenosis [I35.0] INVALID FOR* Positive for macroalbuminuria [R80.9] INVALID FOR* Screening for intestinal cancer [Z12.10] INVALID FOR* Status:Closed by HELIO RUFF CNP on 12/27/16 ALLERGIES ALLERGIES DATE TYPE / CODE NAME / CODE REACTION SEVERITY SOURCE 12/22/2017 Drug No Known Unknown [facility] Allergy/416 Allergies/P88241 [facility] 650656(SNOM 0388(RXNORM) Repository ED CT) 12/26/2016 Drug No Known [facility] Allergy/416 Allergies/V24722 Hospital 069049(SNOM 0388(RXNORM) Repository ED CT) 10/04/2012 Environ/420 SEASONAL GI UPSET [facility] 309582(SNOM ALLERGIES Main [place] ED CT) Repository ENCOUNTERS ENCOUNTERS ADMIT/DISCHARGE ACCOUNT ADMITTING ENCOUNTER LOCATION SOURCE NUMBER CLASS 12/29/2017 [id number] Ambulatory [facility] ing:CLSP Repository 12/24/2017 [id number] Ambulatory [facility] ing:[facility]S Repository 12/22/2017/12/23/19 [id number] Ambulatory BMSBuilding:Marvel Gonzalez [address] Repository 12/21/2017 [id number] Ambulatory BMSBuilding:Marvel Gonzalez MS.[facility] Repository 12/04/2017/12/08/19 [id number] Ambulatory [address] [place] Repository 09/16/2017/09/17/19 [id number] Ambulatory [address] Main [place] Repository 08/05/2017/08/05/19 [id number] Ambulatory [address] Main [place] Repository 08/05/2017/08/05/19 [id number] Ambulatory [address] Main [place] Repository 07/07/2017/07/08/20 [id number] Ambulatory [address] [facility] [place] Repository 05/05/2017/05/06/20 [id number] Ambulatory [address] [facility] [place] Repository 04/17/2017/04/20/20 [id number] Ambulatory [address] [facility] [place] Repository 03/18/2017/03/19/20 [id number] Ambulatory [address] [facility] [place] Repository 02/10/2017/02/11/20 [id number] Ambulatory [address] [facility] [place] Repository 02/02/2017/02/03/20 [id number] Ambulatory [address] [facility] [place] Repository 02/02/2017/02/05/20 [id number] Ambulatory [address] [place] Repository 01/28/2017 [id number] Ambulatory [facility] [place] Repository 12/30/2016/12/31/19 [id number] Ambulatory [address] ing:ENRoom: Repository AC10 12/26/2016/12/27/19 [id number] Emergency [address] ing:ED Repository 12/26/2016/12/27/19 [id number] Ambulatory [address] Repository PAYERS PAYERS ENCOUNTER GUARANTOR PAYER SUBSCRIBER SOURCE 12/29/2017 JAYDE Murguia Primary JAYDE Gonzalez ANABELLA Insurance:[facility].[address] [facility] GROUPPolicy Number: [id number] [place], [place] [id number]: (330) Date: [phone] (HP) TW [address] [place] [address] [id number]: 12/29/2017 Secondary NOT GIVENUNK Lisa Insurance:SELF PAY [facility] Number: Effective Repository Date:2017-12-22 12/24/2017 JAYDE J Primary JAYDE Gonzalez ANABELLA Insurance:[facility].[address] [facility] [place] GROUPPolicy Number: [id number] Repository 37[address]Zay: 330 [id number] [phone] (HP) Date: TW RD [address] [place] [address] [id number]: 12/24/2017 Secondary NOT GIVENUNK Imogene Insurance:SELF PAY [facility] Number: Effective Repository Date:2017-12-22 12/22/2017 JAYDE Primary JAYDE Gonzalez [id number] Insurance:JUDAISM HERSJAIROERGERDOB: Community [facility] [id number] [facility] Number: Repository [place] [id number]: [id number] Date: () TWP [address] [id number]: 12/22/2017 Secondary NOT GIVENUNK Lisa Insurance:SELF PAY [facility] Number: Effective Repository Date:2017-12-15 12/21/2017 JAYDE Primary NOT GIVENUNK Lisa [id number] Insurance:SELF PAY [facility], Number: Effective Repository [place] [id number]: Date:2017-12-21 () 12/30/2016 JAYDE ANGEL Primary Insurance:[facility] NOT GIVENDINH [id number] [facility] Effective [place], [place] Date: Repository [id number]: () 12/26/2016 JAYDE ANGEL Primary JAYDE [id number] Insurance:CHIQUI TAMEZOB: [facility] Number: [id number] [place], [place] [id number] Repository [id number]: (330) Date: ()
[2017-12-24 11:35] LABS: Cholesterol 169 mg/dL (200); High Density Lipoprotein 34 mg/dL; Triglycerides 63 mg/dL; Very Low Density Lipoprotein 13 mg/dL (5-40)
== END ==
PROVIDERS: Family Provider Student in an Organized Health Care Education/Training Program; PCP Student in an Organized Health Care Education/Training Program; Visit Provider Internal Medicine Cardiovascular Disease
DX: I35.0 Nonrheumatic aortic (valve) stenosis (principal); I48.2 Chronic atrial fibrillation; E78.5 Hyperlipidemia, unspecified
CPT/HCPCS: 36415; 80061; 93306; Q9957; A4216; C8929

== ENCOUNTER → 2017-12-29 06:47 | Outpatient (CLI) | payer SELFPAY ==
--- NOTE | 2017-12-22 15:49 | RAD_ITS ---
STUDY: X-RAY CHEST REASON FOR EXAM: Male, 67 years old. Preoperative heart catheterization. History of atrial fibrillation. History of esophageal cancer with radiation and chemotherapy. TECHNIQUE: PA and lateral chest COMPARISON: None. FINDINGS: Mild cardiomegaly. Normal mediastinal silhouette, ines and pleural margins. Prominent elevation of left hemidiaphragm. Associated with mild left lung base atelectasis. Mild generalized interstitial prominence of the lungs, chronic. Acutely the lungs appear clear. There is some hyperlucency at the apices which may reflect underlying COPD. Correlate smoking history. There is no dense focal infiltrate, effusion, pneumothorax or focally suspicious lesion. No acute osseous process. Mild scoliosis. Osteopenia. Mild thoracic degenerative disc disease. RAD/Chest PA and Lateral IMPRESSION: No acute cardiopulmonary process. Electronically Signed: Robles Ugarte, at 10:57 EDT Tel , Service support ,
[2017-12-22 17:27] LABS: Absolute Lymphocyte Count 1.54 X10^3/ul (0.83-4.51); Absolute Neutrophil Count 4.5 X10^3/uL (2.0-7.7); Basophil# 0.05 X10^3/uL; Basophil% 0.7 % (0-1); Eosinophils% 2.8 % (0-5); Hematocrit 42.2 % (40-54); Hemoglobin 14.1 g/dl (13.0-16.5); Lymphocyte # 1.54 X10^3/ul (4.0); Lymphocyte % 21.4 % (19-41); Mean Corp Hgb Conc 33.4 g/gl (32-36); Mean Corpuscular Hgb 32.5 pg (27.0-32.0); Mean Corpuscular Volume 97.2 fL (80-94); Mean Platelet Vol. 12.5 fl (6.2-12.0); Monocyte# 0.87 X10^3/uL; Monocyte% 12.1 % (0-10); Neutrophil # 4.51 X10^3/uL (2.7-7.7); Neutrophil % 62.7 % (47-70); Platelet Count 152 K/mm3 (150-450); RBC Distribution Width CV 15.6 % (11.6-14.6); RBC Distribution Width SD 53.8 fl (35.1-43.9); Red Blood Count 4.34 M/mm3 (4.6-6.2); White Blood Count 7.2 K/mm3 (4.4-11.0)
[2017-12-22 17:35] LABS: POSITIVE COUNT NO; POSITIVE DIFFERENTIAL NO; POSITIVE MORPHOLOGY NO
[2017-12-22 17:39] LABS: International Normalized Ratio 1.7; Partial Thromboplast Time 35.4 Seconds (24.1-36.2); Prothrombin Time (Protime)PT. 20.4 SECONDS (11.7-14.9)
[2017-12-22 18:09] LABS: AST(SGOT) 22 U/L (15-37); Alanine Aminotransfer ALT/SGPT 24 U/L (16-61); Albumin, Serum 3.3 g/dL (3.2-5.0); Alkaline Phosphatase 81 U/L (45-117); Anion Gap 7 (5-15); BUN 14 mg/dL (7-18); Bilirubin, Direct 0.27 mg/dL (0.00-0.30); Calcium,Total 8.4 mg/dL (8.5-10.1); Chloride 99 mmol/L (98-107); Cholesterol 161 mg/dL (200); Creatinine, Serum 1.17 mg/dL (0.70-1.30); EST Glomerular Filtration Rate 66 mL/min (>60); Est Glom Filt Rate - Afr Amer 80 mL/min (>60); Globulin 4.7 g/dL (2.2-4.2); Glucose 174 mg/dL (74-106); High Density Lipoprotein 35 mg/dL; Potassium 4.1 mmol/L (3.5-5.1); Sodium Level 138 mmol/L (136-145); Triglycerides 84 mg/dL; Very Low Density Lipoprotein 17 mg/dL (5-40)
[2017-12-25 14:14] VITALS: BMI 32.8
--- OUTSIDE RECORDS SUMMARY | 2017-12-29 06:51 | XMS RPT_ITS ---
:1950 Author Organization OHIP Support Name Relationship Address Phone [employer] Unavailable [address] + [place] [address] Carina SALAMANCA MIKHAIL Unavailable [address] + [place] [address] PATRICK SALAMANCA Unavailable [address] + [place] [address] [employer] Unavailable [address] + [place] [address] Carina SALAMANCA MIKHAIL Unavailable [address] + [place] [address] PATRICK SALAMANCA Unavailable [address] + [place] [address] [employer] Unavailable [address] + [place] [address] Carina SALAMANCA MIKHAIL Unavailable [address] + [place] [address] PATRICK SALAMANCA Unavailable [address] + [place] [address] U Unavailable Unavailable Unavailable [facility] [employer] Unavailable [address] + [place] [address] MIKHAIL SALAMANCA Unavailable [address] + [place] [address] LUCILA SHAH Unavailable [address] + [place] [address] [facility] Unavailable [address] + [place] [address] MIKHAIL SALAMANCA Unavailable [address] + [facility] [place] [address] LUCILA SHAH Unavailable [address] + [place] [address] Care Team Providers Name Role Phone SHIVA CARDENAS ([facility]) Referring Unavailable VALENCIA, MACHO L Referring Unavailable VALENCIA, MACHO L Attending Unavailable VALENCIA, MACHO L Referring Unavailable MARQUISE CUMMINS Attending Unavailable BALDO CORTES Referring Unavailable VALENCIA, MACHO L Referring Unavailable VALENCIA, MACHO L Referring Unavailable VALENCIA, MACHO L Attending Unavailable VALENCIA, MACHO L Referring Unavailable VALENCIA, MACHO L Referring Unavailable VALENCIA, MACHO L Attending Unavailable VALENCIA, MACHO L Referring Unavailable VALENCIA, MACHO L Referring Unavailable VALENCIA, MACHO L Referring Unavailable VALENCIA, MACHO L Referring Unavailable Valencia, Macho Primary Care Unavailable Zach Ramirez Attending Unavailable Zach Ramirez Referring Unavailable Valencia, Macho Referring Unavailable Zach Ramirez Attending Unavailable Michelle Miguel Attending Unavailable Valencia, Macho Primary Care Unavailable Zach Ramirez Attending Unavailable Zach Ramirez Referring Unavailable Valencia, Macho Primary Care Unavailable Gosia Payton Attending Unavailable Valencia, Macho Primary Care Unavailable Lety Love Attending Unavailable PROBLEMS PROBLEMS DATE TYPE CONDITION / CODE ATTENDING STATUS SOURCE 12/29/2017 Unknown I48.2 - Chronic Zach Ramirez Active [facility] atrial fibrillation Community / I48.2(ICD-10) Hospital Repository 12/29/2017 Unknown I50.32 - Chronic Zach Ramirez Active [facility] diastolic Community (congestive) heart Hospital failure / Repository I50.32(ICD-10) 12/29/2017 Unknown E78.5 - Zach Ramirez Active [facility] Hyperlipidemia, Community unspecified / Hospital E78.5(ICD-10) Repository 12/29/2017 Unknown I35.0 - Nonrheumatic Zach Ramirez Active [facility] aortic (valve) Community stenosis / Hospital I35.0(ICD-10) Repository 12/29/2017 Unknown F17.200 - Nicotine Zach Ramirez Active [facility] dependence, Community unspecified, Hospital uncomplicated / Repository F17.200(ICD-10) 12/29/2017 Unknown E66.9 - Obesity, Zach Ramirez Active [facility] unspecified / Community E66.9(ICD-10) Hospital Repository 12/29/2017 Unknown Z79.01 - superintendent terminal Zach Ramirez Active [place] (current) use of Community anticoagulants / Hospital Z79.01(ICD-10) Repository 12/29/2017 Unknown R60.9 - Edema, James Zach Active [place] unspecified / Community R60.9(ICD-10) Hospital Repository 12/29/2017 Unknown R06.00 - Dyspnea, Zach Ramirez Active [facility] unspecified / Community R06.00(ICD-10) Hospital Repository 12/29/2017 Unknown R06.01 - Orthopnea / Zach Ramirez Active [place] R06.01(ICD-10) [facility] Hospital Repository 02/02/2017 Active Type 2 diabetes NA Active [place] mellitus with Clinic Main diabetic nephropathy [place] / E11.21(ICD-10) Repository 08/05/2017 Active Hyperlipidemia, NA Active [place] unspecified / Clinic Main E78.5(ICD-10) [place] Repository 02/02/2017 Active Unknown / NA Active [place] UNK(Medicity Clinic Main Unknown) [place] Repository 01/28/2017 Active Type 2 diabetes NA Active [place] mellitus without Clinic Main complications / [place] E11.9(ICD-10) Repository 01/06/2017 Unknown PERSONAL HISTORY OF CebulLety Active [place] MALIGNANT NEOPLASM Community OF ESOPHAGUS / Hospital Z85.01(ICD-10) Repository 01/06/2017 Unknown GASTRITIS, Cebul, Lety Active [facility] UNSPECIFIED, WITHOUT Community BLEEDING / Hospital K29.70(ICD-10) Repository 01/06/2017 Unknown DVRTCLOS OF LG INT Cebul, Lety Active [place] W/O PERFORATION OR Community ABSCESS W/O BLEEDING Hospital / K57.30(ICD-10) Repository 01/06/2017 Unknown NONRHEUMATIC AORTIC Cebul, Lety Active [facility] (VALVE) STENOSIS / Community I35.0(ICD-10) Hospital Repository 01/06/2017 Unknown UNSPECIFIED ATRIAL Cebul, Lety Active [place] FIBRILLATION / Community I48.91(ICD-10) Hospital Repository 01/06/2017 Unknown HEART FAILURE, Cebul Lety Active [facility] UNSPECIFIED / Community I50.9(ICD-10) Hospital Repository 01/06/2017 Unknown HYPERLIPIDEMIA, Cebul, Lety Active [place] UNSPECIFIED / Community E78.5(ICD-10) Hospital Repository 01/06/2017 Unknown OBSTRUCTIVE SLEEP CarolbuLety pacheco Active [facility] APNEA (ADULT) Community (PEDIATRIC) / Hospital G47.33(ICD-10) Repository 01/06/2017 Unknown IN HOME SALES CONSULTANT (CURRENT) CebuLety pacheco Active [facility] USE OF Community ANTICOAGULANTS / Hospital Z79.01(ICD-10) Repository 01/06/2017 Unknown OTHER IN HOME SALES CONSULTANT CebulLety Active [facility] (CURRENT) DRUG Community THERAPY / Hospital Z79.899(ICD-10) Repository 01/06/2017 Unknown NICOTINE DEPENDENCE, CebulLety Active [place] OTHER TOBACCO Community PRODUCT, Hospital UNCOMPLICATED / Repository F17.290(ICD-10) PROCEDURES PROCEDURES No Procedure Records FoundRESULTS RESULTS ECHO, COMPLETE W/ Observed: 12/24/2017 Status: F Source: [place] CONTRAST 4:42 PM [facility] [address] [place], [place] [address]Rhhc Complete W/ Yxaedukt80/24/18 1100MR#: [id number] Acct: [id number]: JAYDE SALAMANCA Jr. Rep #: [id number]: 1950 67 From: Zach Ramirez MDAblair Dr: Zach Ramirez MD Status: REG CLIOrdering Dr: Zach Ramirez MD Date: 12/24/17Location: CVS Sex: M CAdmitted:Reason For Study: valve replacement - evaluationProcedureThis was a 2D Doppler, Color Flow transthoracic echocardiogram. The study was technicallydifficult. PT was unable to stay awake for exam, unable to stay in position for imaging. Examperformed in department.Left VentricleMild concentric left ventricular hypertrophy. The estimated ejection fraction is 65 %. Noregionalwall motion abnormalities noted.Right VentricleNormal size and thickness. Normal systolic function.AtriaThe left atrium is severely enlarged. The right atrium is severely enlarged. Normal atrialseptum.Mitral ValveMild diffuse mitral valve thickening. Mild mitral annular calcification extending into theposterior leaflet.Tricuspid ValveNormal tricuspid valve. Mild (1+) eccentric tricuspid valve insufficiency. Right ventricularsystolic pressure estimated to be 45 mmHg. Moderate pulmonary hypertension.Aortic ValveTrisinus/trileaflet aortic valve. Severe diffuse aortic valve thickening. Severe diffuse aorticvalve calcification. Severe aortic stenosis. Peak aortic valve gradient 59 mmHg. Mean aorticvalvegradient 34 mmHg. Calculated aortic valve area (continuity equation) is 0.59 cm2. Mild (1+)aorticvalve insufficiency.Pulmonic ValveNormal pulmonic valve.Great VesselsNormal aortic root. Normal arch. The inferior vena cava is dilated. Inferior vena cava collapsewith respiration.Pericardium/PleuralNo pericardial effusion.Mgsyfnnjuc20 gauge I.V. with prn adaptor inserted into right arm. Diluted definity 2.0ml given slow IVpushto enhance endocardial definition.MMode/2D Measurements AND CalculationsLVIDd: 4.3 cm IVSd: 1.3 cm LVOT diam: 2.0 cmLVIDs : 3.2 cm LVPWd: 1.2 cm LVOT area: 3.2 kd4FLLk: 3.5 cm FS: 26.9 % __Ao root diam: 3.2 cm LAV(MOD-bp): 124.9 ml LA A4 area : 29.5 cm2LA dimension: 4.8 cm LAV(MOD-bp) Indexed: 56.6 ml/m2LAV(MOD-sp2): 128.1 mlLAV(MOD-sp4): 113.9 ml ___RA A4 area: 36.5 pb7Nooxoip Measurements AND CalculationsMV E max miguel: 122.1 cm/ sec Ao V2 max: 371.3 cm/sec AI max miguel: 346.8 cm/secAo max P.2 mmHg AI max P.1 mmHgAo V2 mean: 275.3 cm/sec AI dec slope: 192.3 cm/ sec2Ao mean P.9 mmHg AI P1/2t: 528.2 msecAo V2 VTI: 75.5 cmAVA(I,D): 0.58 cm2AVA(V,D): 0.61 cm2 ____LV V1 max: 70.3 cm/sec SV(LVOT): 43.5 ml PA V2 max: 59.6 cm /secLV V1 max P.0 mmHgLV V1 mean P.0 mmHgLV V1 mean: 48.2 cm/secLV V1 VTI: 13.6 cm ___TR max miguel: 264.3 cm/secTR max P.0 mmHgInterpretation SummaryThe estimated ejection fraction is 65 %.The left atrium is severely enlarged.The right atrium is severely enlarged.Mild concentric left ventricular hypertrophy.Mild (1+) eccentric tricuspid valve insufficiency.Right ventricular systolic pressure estimated to be 45 mmHg.Moderate pulmonary hypertension.Severe aortic stenosis.Peak aortic valve gradient 59 mmHg.Mean aortic valve gradient 34 mmHg.Calculated aortic valve area (continuity equation) is 0.59 cm2.Mild (1+) aortic valve insufficiency.The study was technically difficult. Contrast injection was performed. There is no comparisonstudyavailable. Ordering Physician: Zach RamirezReferring Physician: Zach RamirezPerformed By: Miriam Rogers RDCS, RVT 12/24/17 1641Date ___ Zach Ramirez MDCC: Zach Ramirez MD; Macho Faria, Date Dictated: 12/24/17 1100Date Transcribed: 12/24/17 1641Transcriptionist:Signed LIPID PROFILE Collected: 12/24/2017 Status: F Source: [place] 10:10 AM [facility] [place] [place] REPOSITORY TYPE CODE TESTS RESULT OUT OF RANGE REFERENCE UNITS LAB L501.4900 Normal 200 mg/dL CHOL 169 Result Comment: <200 mg/dL Desirable 200-240 mg/dL Borderline >240 mg/dL High Risk LAB L501.5000 Normal mg/dL TRIG 63 Result Comment: The drugs N-Acetylcysteine and Metamizole may falselydepress this assay.Serum Triglycerides Reference Interval Normal <150 mg/dL Borderline high 150 - 199 mg/ dL High 200 - 499 mg/dL Very High > or = 500 mg/dL LAB L501.6400 Low mg/dL HDL 34 Result Comment: The drugs N-Acetylcysteine and Metamizole may falselydepress this assay. Reference Range HDL <40 mg/dL Low HDL Cholesterol HDL >or= 60 mg/dL High HDL Cholesterol LAB L501.6500 Normal 0-130 mg/dL LDL 122 LAB L501.6600 Normal 5-40 mg/dL VLDL 13 Performed By: #### L500.4100 ####[facility] [address] [place], [address] CBC W/DIFF, AUTOMATED Collected: 12/22/2017 Status: F Source: LISA 4:04 PM [facility] [place], [place] REPOSITORY TYPE CODE TESTS RESULT OUT OF [...] 1.54 Performed By: #### L100.0100, L300.3900, L300.4310 ####[facility] [address] [place], [address] PROTHROMBIN TIME W/INR Collected: 12/22/2017 Status: F Source: [place] 4:04 PM [facility] [place] [place] REPOSITORY TYPE CODE TESTS RESULT OUT OF RANGE REFERENCE UNITS LAB L300.4150 High 11.7-14.9 SECONDS PROTIME 20.4 LAB L300.4200 Normal INR 1.7 Performed By: #### L100.0100, L300.3900, L300.4310 ####[facility] [address] [place], [place], [address] PARTIAL THROMBOPLAST Collected: 12/22/2017 Status: F Source: [place] TIME 4:04 PM [facility] [place] [place] REPOSITORY TYPE CODE TESTS RESULT OUT OF RANGE REFERENCE UNITS LAB L300.4310 Normal 24.1-36.2 Seconds PTT 35.4 Performed By: #### L100.0100, L300.3900, L300.4310 ####[facility] [address] [place], [place], [address] BASIC METABOLIC Collected: 12/22/2017 Status: F Source: [place] PROFILE (BMP) 4:04 PM [facility] [place] [place] REPOSITORY TYPE CODE TESTS RESULT OUT OF RANGE REFERENCE UNITS LAB L501.0100 High 74-106 mg/dL GLU 174 Result Comment: Fasting Glucose result greater than or equal to 126 mg/ dLsuggests DIABETES MELLITUS per A.D.A. criteria.Please note revised GLUCOSE reference range gudnetbaz65/02/2018. LAB L501.1000 Normal 7-18 mg/dL BUN 14 [...] 7 Performed By: #### L500.2500, L500.3400, L500.4100 ####[facility] [address] [place], [place], [address] LIVER PROFILE Collected: 12/22/2017 Status: F Source: [place] 4:04 PM [facility] [place] [place] REPOSITORY TYPE CODE TESTS RESULT OUT OF [...] BILI Performed By: #### L500.2500, L500.3400, L500.4100 ####[facility] [address] [place], [place], [address] LIPID PROFILE Collected: 12/22/2017 Status: F Source: [place] 4:04 PM [facility] [place] [place] REPOSITORY TYPE CODE TESTS RESULT OUT OF [...] 17 Performed By: #### L500.2500, L500.3400, L500.4100 ####[facility] [address] [place], [address] CHEST PA AND LATERAL Observed: 12/22/2017 Status: F Source: [place] 3:49 PM [facility] [place] [place] RE[facility]ITORY [facility] [address] [place], [place] [address]Lfkgn PA and LateralMR#: [id number] Acct: [id number]: JAYDE SALAMANCA Jr. Rep #: [id number] : 1950 M 67 From: Robles Ugarte MDPCP: Macho Faria DO Status: PRE CLIStudy: Chest PA and Lateral Date of Exam: 12/22/17Exam# [id number] Ordering Dr: Zach Ramirez MDSTUDY: X-RAY CHESTREASON [...] at 10:57 EDTTel , Service support , TA: Zach Ramirez MD; Macho Faria DO [employer] Labourer:Signed CARDIOLOGY VISIT Observed: 12/22/2017 Status: F Source: [place] REPORT 2:58 PM [facility] [place], [place] REPOSITORY [facility] [address] [facility] Hospitalpat[address], [place] [phone] VISITDate of Service: 12/22/17MR#: [id number] Acct: [id number]: JAYDE SALAMANCA Rep #: [id number]: 1950 Provider: Mauricio Jarrett/Sex: 67/M [facility] Complaint: Atrial fibrillation, aortic stenosis, establishment of careDetails: Mr. Salamanca is a very pleasant 67-year-old currently smoking gentleman,718-diud-wimp history, diabetic, atrial fibrillation, occasional alcohol, no [...] hr 120 mg PO QDAY 12/21/17 [History Ssapewqfx58/22/18]warfarin 5 mg tablet 5 mg PO QDAY [...] bypass, I recommend referring him to the [facility] for T AVR. If he requires both aortic valve replacement and T AVR would recommendreferral to [facility] or 1 of the local hospitals.I [...] prior to saving.OrdersOrders:Plan DetailOther OrdersOrders:Other MedicationsNew:Discontinued:Follow Up+6M (James)+2 weeks (BP check) CodingLevel of Care CodeOff vis,new,level 4DiagnosesNon-rheumatic aortic stenosis I35.0Hyperlipidemia E78.5Chronic atrial fibrillation I48.2CodingLevel of Care CodeOff vis,new,level 4DiagnosesNon-rheumatic aortic stenosis I35.0Hyperlipidemia E78.5Chronic atrial fibrillation I48. 1458 <Electronically signed by Zach Ramirez MD>Date Zach Ramirez MDCosigner Signature: Date (if applicable)CC: Macho Faria DO 12 LEAD EKG PERFORMED Observed: 12/22/2017 Status: F [place] [facility] [place]:03 PM [facility] [place] [place] REPOSITORY [address] [place], [place] [address] Lead EKG performed by BMS12/22/17 1401MR#: [id number] Acct: [id number]: JAYDE SALAMANCA Jr. Rep #: [id number]: 1950 67 From: Zach Ramirez MDAttending Dr: Zach Ramirez MD Status: DEP AMBOrdering Dr: Zach Ramirez MD Date: 12/22/17Location: [facility] Sex: M CAdmitted: BMS/12 Lead EKG performed by BMSAtrial fibrillation -irregular conduction Low voltage in limb leads. -Poor-wave progression -may be secondary to pulmonary disease consider oldnterior infarct. - Nonspecific T-abnormality. TGJREUYW85/23/18 1415 <Electronically signed by Zach Ramirez MD>Date Zach Ramirez MDCC: Macho Faria, Date Dictated: 12/22/17 1401Date Transcribed: 12/22/17 1401Transcriptionist:Signed PROGRESS Observed: 12/04/2017 Status: COMPLETED Source: [place] 3:09 PM [facility] REPOSITORY HNO ID: [id number]: Macho Valencia LService: (none) Author Type: PhysicianType: Progress NotesFiled: 12/04/2017 4:37 PMNote Text:Agree with Manjula Valencia DO PROGRESS Observed: 12/04/2017 Status: COMPLETED Source: [place] 3:05 PM [facility] REPOSITORY HNO ID: [id number]: Dada Dos Santos RNService: (none)Author Type: (none)Type: Progress NotesFiled: 12/04/2017 3:07 PMNote Text:patient had inr completed at [facility] CCpatients inr is 2.7 (patients inr [...] scheduled in 4 weeks (pt will call [facility]) for follow up INR. PROGRESS Observed: 09/16/2017 Status: COMPLETED Source: [place] 4:04 PM [facility] REPOSITORY HNO ID: [id number]: Macho Torrezervice: (none) Author Type: PhysicianType: Progress NotesFiled: 09/16/2017 4:35 PMNote Text:Agree with Manjula Valencia DO PROGRESS Observed: 09/16/2017 Status: COMPLETED Source: [place] 3:39 PM [facility] REPOSITORY HNO ID: [id number]: Dada Levon RNService: (none)Author Type: (none)Type: Progress NotesFiled: 09/16/2017 3:41 PMNote Text:patient had inr completed at [facility] CCpatients inr is 2.2 (patients inr [...] scheduled in 4 weeks [facility]. OBSOLETE Observed: 08/19/2017 Status: COMPLETED Source: [place] 12:00 AM [facility] REPOSITORY Refill (FAMPWS) ---------JAYDE SALAMANCA ([id number]) 1950 MDate Time Provider Department08/19/17 SHIVA CARDENAS ([facility]) FAMPWS During your visit today, we recorded the following information about you:Oralia Delgado LPN 08/19/2017 3:19 PM SignedUpcoming appointment: 02/10/18Medication request:Pending [...] 1 mg tabletTAKE 1 TABLET ON THU, THU, THU WITH 5MG TABLET (6MG TOTAL)Disp: 30 tabletRfl: 11Prescriptions as of 2017 Sig: WARFARIN 1 MG TABLET TAKE 1 TABLET ON Thu, * WARFARIN 5 MG TABLET TAKE 1 [...] COMPOUNDED PRESCRIPTION Cardiotrophin PMG COMPOUNDED PRESCRIPTION [facility] C COMPOUNDED PRESCRIPTION Cataplex E2 COMPOUNDED PRESCRIPTION Boswellia complex COMPOUNDED PRESCRIPTION Glucosamine Synergy FUROSEMIDE 20 MG TABLET Take 1 tablet by mouth once d* DILTIAZEM SR 120 MG 24 HR CAP Take 1 capsule by mouth once * WARFARIN 1 MG TABLET Take 6mg on Thursday, Thursday* WARFARIN 5 MG TABLET Take 6mg Thu,Thu,Thu,Sat,Sun * OTC PRODUCT [facility]: Take 4 capsules b* ALOE VERA ORAL [...] 08/21/2017 Sig: TAKE 1 TABLET ON THU, THU, THU WITH 5MG TABLET (6MG TOTAL)Medications Discontinued During This Encounter warfarin (COUMADIN) 1 mg tablet 30 t* 0 12/09/2016 08/21/2017 Sig: Take 6mg on Thursday, Thursday, and Fridays and 5mg the rest of the week Disc: Reason for discontinue is not on file. Status:Closed by MACHO VALENCIA DO on 08/21/17 HEMOGLOBIN A1C Collected: 08/05/2017 Status: F Source: [place] 3:12 PM [facility] REPOSITORY TYPE CODE TESTS RESULT OUT OF REFERENCE UNITS RANGE LAB HGBA1C High 4.3-5.6 % Hemoglobin 9.1 A1c LAB HBA0 mg/dL Est. Average 214 Glucose Result Comment: eAG: (Estimated average glucose) is a calculated value from HgbA1c and is hardware supplies sales representative of the average blood glucose level in the last 2-3 month period. Performed By: #### HBA1C, CBC, CMP, LIPB ####[facility] [address] [place], [place] [phone] CBC Collected: 08/05/2017 Status: F Source: [place] 3:12 PM [facility] REPOSITORY TYPE CODE TESTS RESULT OUT [...] Performed By: #### HBA1C, CBC, CMP, LIPB ####[facility] [address] [place], [place] [phone] COMP METABOLIC PANEL Collected: 08/05/2017 Status: F Source: [place] 3:12 PM [facility] REPOSITORY TYPE CODE TESTS [...] 74-99 mg/dL Glucose 220 Result Comment: The [place] Diabetes Association (ADA) provides guidance for cutoff [...] of Medical Care in Diabetes 2016 , [place] Diabetes Association. Diabetes Care. 2016.39(Suppl 1). LAB [...] Performed By: #### HBA1C, CBC, CMP, LIPB ####[facility] [place], [place] [phone] LIPID PANEL, BASIC Collected: 08/05/2017 Status: F Source: [place] 3:12 PM [facility] REPOSITORY TYPE CODE TESTS RESULT OUT [...] Performed By: #### HBA1C, CBC, CMP, LIPB ####[facility] [address] [place], [place] [phone] PROGRESS Observed: 08/05/2017 Status: COMPLETED Source: [place] 3:03 PM [facility] REPOSITORY HNO ID: [id number]: Macho HernandezonService: (none) Author Type: PhysicianType: Progress NotesFiled: 08/05/2017 3:08 PMNote Text:Patient presents with:Follow Up: 3 monthsHPI:Jayde Salamanca is a 67 year old male who presents to the office todayfor review of health conditions.Concerns today:Overall doing okay, admits to recent poor diet choices with increasedsugars and carbohydrates. Hx of albuminuria/nephropathy, hasn't had labsrechecked since January. No edema concerns- intermittent use of LasixChronic atrial fib, taking Coumadin as prescribed. Tolerating without SEconcerns. Chronic dyspnea with exertion unchanged.Mr. Salamanca has past history of diabetes. Since our [...] )Last Ophthalmology exam was >12 months agoMr. Salamanca reports history of hyperlipidemia. Current therapyincludes no current treatment. Denies side effects of muscle weakness orachiness. His most recent lipid panels are reviewed.Cholesterol (mg/dL)Date Value12/12/2015 145 HDL Cholesterol (mg/dL)Date Value12/11 33 LDL Cholesterol (mg/dL)Date Value12/12/2015 100 Triglyceride (mg/dL)Date Value12/12/2015 62 Mr. 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 Asneeded for leg swellingOTC PRODUCT [facility]: Take 4 capsules by mouth twice daily.ALOE VERA ORAL Take 3 Tablespoonsful by mouth once daily.Review of Systems: The remainder of the review of systems is negative.PE: 420BP: 110/80Pulse: 88Resp: 24Temp: 37.1 ?C (98.7 ?F) [...] expressed understanding and agreed with the plan.Macho Valencia [address] [place] [address]Fxsub: [phone]: [phone] CNOV Observed: 08/05/2017 Status: COMPLETED Source: [place] 2:20 PM [facility] REPOSITORY Office Visit (FAMPWS) ---------JAYDE SALAMANCA ([id number]) 1950 MDate Time Provider Department08/05/17 2:20 PM MACHO VALENCIA [facility] During your visit today, we recorded the following information about you: Temperature Pulse Respiration Blood pressure 98.7 degrees 88/minute 24/minute 110/80 Weight 102.5 kgMacho Valencia DO 08/05/2017 3:08 PM SignedPatient presents with:Follow Up: 3 monthsHPI:Jayde Blade Anabella is a 67 year old male who presents to the office today forreview of health conditions.Concerns today:Overall doing okay, admits to recent poor diet choices with increased sugarsand carbohydrates. Hx of albuminuria/nephropathy, hasn't had labs recheckedsince January. No edema concerns- intermittent use of LasixChronic atrial fib, taking Coumadin as prescribed. Tolerating without SEconcerns. Chronic dyspnea with exertion unchanged.Mr. Salamanca has past history of diabetes. Since our [...] all basis schedule with sugars in the [id number] range. Patient's last HgA1C wasHemoglobin A1C (%)Date Value01/28/2017 8. 6.8--------- -)Last Ophthalmology exam was ANDgt;12 months agoMr. Salamanca reports history of hyperlipidemia. Current therapy includes nocurrent treatment. Denies side effects of muscle weakness or achiness. Hismost recent lipid panels are reviewed.Cholesterol (mg/dL)Date Value12/12/2015 145 HDL Cholesterol ( mg/dL)Date Value12/12/2015 33 LDL Cholesterol (mg/dL)Date Value12/12/2015 100 Triglyceride (mg/dL)Date Value12/12/2015 62 Mr. 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 As neededfor leg swellingOTC PRODUCT Arctic Sea: Take 4 capsules by mouth twice daily.ALOE VERA ORAL Take 3 Tablespoonsful by mouth once daily.Review of Systems: The remainder of the review of systems is negative.PE: [id number]: 110/80Pulse: 88Resp: 24Temp: 37.1 ?C (98.7 ?F)TempSrc: [...] expressed understanding and agreed with the plan.Macho Valencia [id number] [place], [place] [address]Zknqj: [phone]: Ailehvnjo Provider: MACHO VALENCIA [[id number]]Allergies As of Date: 08/05/2017 Noted Allergy ReactionSEASONAL [...] 30-34.9 [E66.9]Order(s):COMP METABOLIC PANEL [SQCMP] Order #: [id number] FUTURE HGB A1C [VWDHQ9Z] Order #: [id number] FUTURE CBC [SQCBC] Order #: [id number] FUTURE LIPID PANEL BASIC [SQLIPB] Order #: [id number] FUTUREPrescriptions as of 08/05/2017 Sig: WARFARIN 5 [...] COMPOUNDED PRESCRIPTION Cardiotrophin PMG COMPOUNDED PRESCRIPTION Forever [facility] C COMPOUNDED PRESCRIPTION Cataplex E2 COMPOUNDED PRESCRIPTION Boswellia complex FUROSEMIDE 20 MG TABLET Take 1 tablet by mouth once d* OTC PRODUCT [facility]: Take 4 capsules b* ALOE VERA ORAL Take 3 Tablespoonsful by mout*Medication notes this encounter COMPOUNDED PRESCRIPTION >> Kita Newell LPN 08/05/2017 2:26 PM >> KITA NEWELL LPN ThuAug 05, 2017 2:26 PM Finished COMPOUNDED PRESCRIPTION >> Kita Newell LPN 08/05/2017 2:26 PM >> KITA NEWELL LPN ThuAug 05, 2017 2:26 PM FinishedProblem List As Of Date 08/05/2017 Noted Resolved 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] INVALID FOR* Drug induced neutropenia [D70.2] INVALID FOR*11/23/2012 Atrial fibrillation [I48.91] INVALID FOR* 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] INVALID FOR* Hypercholesteremia [E78.00] INVALID [...] 30-34.9 [E66.9] INVALID FOR* Status:Closed by MACHO VALENCIA DO on 08/05/17 PROGRESS Observed: 07/07/2017 Status: COMPLETED Source: [place] 4:41 PM [facility] REPOS[facility] HNO ID: [id number]: Macho Torrezervice: (none) Author Type: PhysicianType: Progress NotesFiled: 07/07/2017 4:53 PMNote Text:Agree with Manjula Valencia DO HOSP Observed: 07/07/2017 Status: COMPLETED Source: [place] 3:45 PM [facility]POS[facility] Anticoagulation Visit (COUMWS) ---------JAYDE SALAMANCA ([id number]) 1950 MDate Time Provider Xebwjpjskc59/5/17 3:45 PM [facility] During your visit today, we recorded the following information about you:Dada Dos Santos RN 07/07/2017 3:17 PM Signedpatient had inr completed at [facility] CCpatients inr is 2.4 (patients inr [...] will call toschedule) for follow up INR.Macho Valencia DO 07/07/2017 4:53 PM SignedAgree with Rosalee Skaggs Provider: MACHO VALENCIA [[id number]]Allergies As of Date: 07/07/2017 Noted Allergy ReactionSEASONAL ALLERGIES 10/04/2012 8 - GI Upset Comments: headacheDate Reviewed: 07/07/2017Reviewed by: Dada Dos Santos RN - Fully AssessedReason for Visit : Anticoagulation [8]Primary Visit Diagnosis:Atrial fibrillation, unspecified type (HCC) [I48.91] Order(s):INR (POC) [[id number]] Order #: [id number]. #:[id number] as of 07/07/2017 Sig: DOXYCYCLINE MONOHYDRATE [...] TABLET Take 6mg Thu,Thu,Thu,Sat,Sun * OTC PRODUCT [facility] Sea: Take 4 capsules b* ALOE VERA [...] INVALID FOR*Follow-up and Disposition History RecordedEncounter Number: [id number] Status:Closed by DADA DOS SANTOS RN on 07/07/17 PROGRESS Observed: 07/07/2017 Status: COMPLETED Source: [place] 3:16 PM [facility] HNO ID: [id number]: Dada Dos Santos RNService: (none)Author Type: (none)Type: Progress NotesFiled: 07/07/2017 3:17 PMNote Text:patient had inr completed at [facility] CCpatients inr is 2.4 (patients inr [...] toschedule) for follow up INR. PROGRESS Observed: 05/05/2017 Status: COMPLETED Source: [place] 3:21 PM [facility] RE[facility] HNO ID: [id number]: Macho Torrezervice: (none) Author Type: PhysicianType: Progress NotesFiled: 05/05/2017 4:33 PMNote Text:Patient presents with:Follow Up: 3 monthsHPI:Jayde Salamanca is a 67 year old male who [...] nicoderm patches, hasn't set a date yet.Mr. Salamanca has past history of diabetes. Since our [...] )Last Ophthalmology exam was >12 months agoMr. Salamanca reports history of hyperlipidemia. Current therapyincludes no current treatment. His most recent lipid panels are reviewed.Cholesterol (mg/dL )Date Value12/12/2015 145 HDL Cholesterol (mg/dL)Date Value12/12/2015 33 LDL Cholesterol (mg/dL)Date Value12/12/2015 100 Triglyceride (mg/dL)Date Value12/12/2015 62 Mr. 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, [...] PRESCRIPTION Cardio-PlusCOMPOUNDED PRESCRIPTION Cardiotrophin PMGCOMPOUNDED PRESCRIPTION Forever [facility] CCOMPOUNDED PRESCRIPTION Cataplex [id number] PRESCRIPTION Boswellia complexCOMPOUNDED PRESCRIPTION Glucosamine Synergyfurosemide (LASIX) [...] mg tablet Take 6mg Thu,Thu,Thu,Sat,Sun and 5mg allother days or as directed.OTC PRODUCT Arctic Sea: Take 4 capsules by mouth twice daily.ALOE VERA ORAL Take 3 Tablespoonsful by mouth once daily.Review of Systems: The remainder of the review of systems is negative.PE: [id number]: 116/82Pulse: 80Resp: 16Temp: 36.8 ?C (98.2 ?F)TempSrc: [...] expressed understanding and agreed with the plan.Macho Valencia, [id number] [place], [place] [address]Dqxad: [phone]: CNOV Observed: 05/05/2017 Status: COMPLETED Source: [place] 3:00 PM [facility] REPOSITORY Office Visit (FAMPWS) ---------JAYDE SALAMANCA ([id number]) 1950 [facility] Time Provider Kolkwwojng22/3/17 3:00 PM MACHO VALENCIA During your visit today, we recorded the following information about you: Temperature Pulse Respiration Blood pressure 98.2 degrees 80/minute 16/minute 116/82 Weight 100.2 kgChulardsilvia Valencia DO 05/05/2017 4:33 PM SignedPatient presents with:Follow Up: 3 monthsHPI:Jayde Salamanca is a 67 year old male who [...] needs to quit, working on a plan andKIHEITAI to use nicoderm patches, hasn't set a date yet.Mr. Salamanca has past history of diabetes. Since our last visit he deniesexcessive thirst or increased frequency of urination, chest pain or dyspnea ,new or unusual visual symptoms and low sugar/hypoglycemic reactions. Followsa diabetic diet some of the time. He is diet controlled. He reports checkinghis glucose on a infrequent to not at all basis schedule . Patient's datwHjT8U wasHemoglobin A1C (%)Date Value01/28/2017 8. 6.8 )Last Ophthalmology exam was ANDgt;12 months agoMr. Salamanca reports history of hyperlipidemia. Current therapy includes nocurrent treatment. His most recent lipid panels are reviewed.Cholesterol (mg/dL)Date Value12/12/2015 145 HDL Cholesterol (mg/dL)Date Value12/12/2015 33---- ------LDL Cholesterol (mg/dL)Date Value12/12/2015 100 Triglyceride (mg/dL)Date Value2015 62 Mr. 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, [...] TABLET DAILY ON THU, THU, THU, THU, SUNCOMPOUNDED PRESCRIPTION Organically Bound MineralsCOMPOUNDED PRESCRIPTION Vitamin O dietary supplementCOMPOUNDED PRESCRIPTION Cardio-PlusCOMPOUNDED PRESCRIPTION Cardiotrophin PMGCOMPOUNDED PRESCRIPTION Forever [facility] CCOMPOUNDED PRESCRIPTION Cataplex [id number] PRESCRIPTION Boswellia complexCOMPOUNDED PRESCRIPTION Glucosamine Synergyfurosemide (LASIX) [...] of the review of systems is negative.PE: [id number]: 116/82Pulse: 80Resp: 16Temp: 36.8 ?C (98.2 ?F)TempSrc: [...] 1545Affirmation of Time Out: YESSign Out Discussion: Shoshana Bennettjection of 2 cc of 2% lidocaine plain, [...] right - ICD9: 726.10, ICD10: M75.51- see aboveJoRosales Moncada ER if develops chest pain, shortness of breath, or severe worsening ofsymptoms.Discussed risks, benefits, alternatives, and potential side effects ofmedications.Patient expressed understanding and agreed with the plan.Macho Valencia [id number] [place], [place] [address]Nfkab: [phone]: [phone] Provider: MACHO VALENCIA [[id number]]Allergies As of Date: 05/05/2017 Noted Allergy ReactionSEASONAL [...] COMPOUNDED PRESCRIPTION Cardiotrophin PMG COMPOUNDED PRESCRIPTION Forever [facility] C COMPOUNDED PRESCRIPTION Cataplex E2 COMPOUNDED PRESCRIPTION [...] Take 6mg Thu,Thu,Thu, Sat,Sun * OTC PRODUCT [facility]: Take 4 capsules b* ALOE VERA ORAL [...] by mouth twice daily. Status:Closed by MACHO VALENICA DO on 05/05/17 OBSOLETE Observed: 04/27/2017 Status: COMPLETED Source: [place] 12:00 AM [facility] REPOS[facility] Refill (FAMPWS) ---------JAYDE SALAMANCA ([id number]) 1950 MDate Time Provider Department04/27/17 [facility] During your visit today, we recorded the following information about you:Susan Mercado, Josh 04/28/2017 12:11 PM SignedDrAngel Valencia,Please review pended medication orders. Last Anticoag note from 04/17 below.Please note: Pended SIG does not match last Anticoag note and pt has two ordersfor Warfarin 5mg and two for Warfarin 1 mg on med list. Please verify correctSIG and d/c duplicate orders.GABE: 02/02/2017NOV: 05/05/2017Thank you.Pharmacist Refill Authorization ReviewName: Jayde Randle: [id number]: 04/28/2017Time: 12:11 PMRefill authorization request(s) received via pharmacy request and reviewedunder effective consult agreement. Upon review , did confirm that an activepatient-provider relationship exists and that the prescriber is a participatingphysician under the consult agreement.The medication(s) fall under the following categories: Category 3: 1 corresponding medication(s) does not qualify for renewal due toneeding a physician consult and review.Additional actions taken: Contacted prescriber to discuss.Tima Mejia Managed Authorization CenterPhone Current Outpatient Prescriptions:warfarin (COUMADIN) 5 mg tablet TAKE 1 TABLET THU, THU, THU, THU, THUCOMPOUNDED PRESCRIPTION Organically Bound MineralsCOMPOUNDED PRESCRIPTION Vitamin O dietary supplementCOMPOUNDED PRESCRIPTION Cardio-PlusCOMPOUNDED PRESCRIPTION Cardiotrophin PMGCOMPOUNDED PRESCRIPTION [facility] CCOMPOUNDED PRESCRIPTION Cataplex [id number] PRESCRIPTION Boswellia complexCOMPOUNDED PRESCRIPTION Glucosamine Synergyfurosemide (LASIX) [...] tablet Take 6mg Thu,Thu,Thu,Thu,Thu and 5mg all other or as directed.OTC PRODUCT [facility]: Take 4 capsules by mouth twice daily.ALOE [...] Cardio-Plus COMPOUNDED PRESCRIPTION Cardiotrophin PMG COMPOUNDED PRESCRIPTION [facility] C COMPOUNDED PRESCRIPTION Cataplex E2 COMPOUNDED PRESCRIPTION [...] Take 6mg Thu,Thu,Thu, Sat,Sun * OTC PRODUCT [facility]: Take 4 capsules b* ALOE VERA ORAL [...] 04/28/2017 Sig: TAKE 1 TABLET DAILY ON THU, THU, XAVI, SAT, SUNMedications Discontinued During This Encounter warfarin (COUMADIN) 5 mg tablet 30 t* 0 02/17/2017 04/28/2017 Sig: TAKE 1 TABLET THU, THU, THU, SAT, SUN Disc: Reason for discontinue is not on file. Status:Closed by MACHO VALENCIA DO on 04/28/17 PROGRESS Observed: 04/17/2017 Status: COMPLETED Source: [place] 4:10 PM [facility] REPOSIT[facility] HNO ID: [id number]: Macho Torrezervice: (none) Author Type: PhysicianType: Progress NotesFiled: 04/17/2017 4:13 PMNote Text:Agree with belowMacho Valencia DO PROGRESS Observed: 04/17/2017 Status: COMPLETED Source: [place] 3:48 PM [facility] RE[facility] HNO ID: [id number]: Dada Dos Santos LPNService: (none)Author Type: (none)Type: Progress NotesFiled: 04/17/2017 3:49 PMNote Text:patient had inr completed at [facility] CCpatients inr is 2.3 (patients inr [...] INR. HOSP Observed: 04/17/2017 Status: COMPLETED Source: [place] 3:30 PM [facility] Anticoagulation Visit (COUMWS) ---------JAYDE SALAMANCA ([id number]) 1950 MDate Time Provider Department04/17/17 3:30 PM [facility] During your visit today, we recorded the following information about you:Dada Dos Santos LPN 04/17/2017 3:49 PM Signedpatient had inr completed at [facility] CCpatients inr is 2.3 (patients inr [...] scheduled in 4 weeks ([facility] for follow up INR.Macho Valencia DO 04/17/2017 4 :13 PM SignedAgree with Rosalee Skaggs Provider: MACHO VALENCIA [[id number]] Allergies As of Date: 04/17/2017 Noted Allergy ReactionSEASONAL ALLERGIES 10/04 8 - GI Upset Comments: headacheDate Reviewed: 02/10/2017Reviewed by: Chica (Myriam) MYRIAM Villalpando - Fully AssessedReason for Visit: Anticoagulation [8]Primary Visit Diagnosis:Atrial fibrillation, unspecified type (HCC) [I48.91]Order(s):INR (POC) [[id number]] Order #: [id number]. #:[id number] as of 04/17/2017 Sig: WARFARIN 5 MG [...] Take 6mg Thu,Thu,Thu, Sat,Sun * OTC PRODUCT [facility]: Take 4 capsules b* ALOE VERA ORAL Take 3 Tablespoonsful by darin*Problem List As Of Date 04/17/2017 Noted Resolved [...] INVALID FOR*Follow-up and Disposition History RecordedEncounter Number: [id number] Status:Closed by DADA DOS SANTOS LPN on 04/17/17 PROGRESS Observed: 03/18/2017 Status: COMPLETED Source: [place] 5:54 PM [facility] REPOS[facility] HNO ID: [id number]: Macho Torrezervice: (none) Author Type: PhysicianType: Progress NotesFiled: 03/19/2017 8:12 AMNote Text:Agree with below, continue same dose, recheck INR 4 weeksJosaurav Valencia DO PROGRESS Observed: 03/18/2017 Status: COMPLETED Source: [place] 3:41 PM [facility] REPOS[facility] HNO ID: [id number]: Dada LOMBARDOervice: (none)Author Type: (none)Type: Progress NotesFiled: 03/18/2017 3:42 PMNote Text:patient had inr completed at [facility] CCpatients inr is 2.1 (patients inr [...] INR. HOSP Observed: 03/18/2017 Status: COMPLETED Source: [place] 3:15 PM [facility] REPOSIT[facility] Anticoagulation Visit (COUMWS) ---------JAYDE SALAMANCA ([id number]) 1950 MDate Time Provider Department03/18/17 3:15 PM [facility] During your visit today, we recorded the following information about you:Dada Dos Santos LPN 03/18/2017 3:42 PM Signedpatient had inr completed [facility] CCpatients inr is 2.1 (patients inr range [...] will call toschedule) for follow up INR.Macho Valencia DO 03/19/2017 8 :12 AM SignedAgree with below, continue same dose, recheck INR 4 weeksJoRosalee Moncada Provider: MACHO VALENCIA [[id number]]Allergies As of Date: 03/18/2017 Noted Allergy ReactionSEASONAL ALLERGIES 10/04/2012 8 - GI Upset Comments: headacheDate Reviewed: 2016Reviewed by: Chica (Rn) MYRIAM Villalpando - Fully AssessedReason for Visit: Anticoagulation [8]Primary Visit Diagnosis:Atrial fibrillation, unspecified type (HCC) [I48.91]Order(s):INR (POC) [[id number]] Order #: [id number]. #:[id number] as of 2016 Sig: WARFARIN 5 MG TABLET TAKE 1 TABLET THU, THU, THU, * COMPOUNDED PRESCRIPTION Organically Bound Minerals COMPOUNDED PRESCRIPTION Vitamin O dietary supplement COMPOUNDED PRESCRIPTION Cardio-Plus COMPOUNDED PRESCRIPTION Cardiotrophin PMG COMPOUNDED PRESCRIPTION Forever [facility] C COMPOUNDED PRESCRIPTION Cataplex E2 COMPOUNDED PRESCRIPTION [...] Take 6mg Thu,Thu,Thu, Sat,Sun * OTC PRODUCT [facility]: Take 4 capsules b* ALOE VERA ORAL [...] INVALID FOR*Follow-up and Disposition History RecordedEncounter Number: [id number] Status:Closed by DADA DOS SANTOS LPN on 03/19/17 OBSOLETE Observed: 02/14/2017 Status: COMPLETED Source: [place] 12:00 AM [facility] ---------JAYDE SALAMANCA ([id number]) 1950 MDate Time Provider Department02/14/17 [facility] During your visit today, we recorded the following information about you:Leticia Mercer PharmD 02/16/2017 10:07 AM SignedDrAngel Valencia -Please review pended medication orders. Pt following with Lisa Bergeron.GABE: 02/02/2017NOV: 05/05/2017Thdyllan you.Pharmacist Refill Authorization ReviewName: Jayde RamiresN: [id number]: 02/16/2017Time: 10:06 AMRefill authorization request(s) received via pharmacy request and reviewedunder effective consult agreement. Upon review, did confirm that an activepatient-provider relationship exists and that the prescriber is a participatingphysician under the consult agreement.The medication(s) fall under the following categories:Category 3: 1 corresponding medication(s) does not qualify for renewal due topatient being followed by another provider.Additional actions taken: Contacted prescriber to discuss.Leticia Brodman, PharmDPharmacy Managed Authorization CenterPhone Current Outpatient Prescriptions:COMPOUNDED PRESCRIPTION Organically Bound MineralsCOMPOUNDED PRESCRIPTION Vitamin O dietary supplementCOMPOUNDED PRESCRIPTION Cardio-PlusCOMPOUNDED PRESCRIPTION Cardiotrophin PMGCOMPOUNDED PRESCRIPTION [facility] CCOMPOUNDED PRESCRIPTION Cataplex [id number] PRESCRIPTION Boswellia complexCOMPOUNDED PRESCRIPTION Glucosamine Synergyfurosemide (LASIX) [...] tablet Take 6mg Thu,Thu,Thu,Thu,Thu and 5mg all other or as directed.OTC PRODUCT [place]: Take 4 capsules by mouth twice daily.ALOE VERA ORAL Take 3 Tablespoonsful by mouth once daily.No current facility-administered medications for this visit.Allergies As of Date: 02/14/2017 Noted Allergy ReactionSEASONAL ALLERGIES 10/04 8 - GI Upset Comments: headacheDate Reviewed: 02/10/2017Reviewed by: Chica Ac) MYRIAM Villalpando - Fully AssessedReason for Visit: Refill Request [94]Order(s):warfarin (COUMADIN) 5 mg tabletTAKE 1 TABLET THU, THU, THU, THU, isp: 30 tabletRfl: 0Prescriptions as of 02/14/2017 Sig: WARFARIN 5 MG TABLET TAKE 1 TABLET THU, THU, THU, * COMPOUNDED PRESCRIPTION Organ[employer]erals COMPOUNDED PRESCRIPTION Vitamin O dietary supplement COMPOUNDED PRESCRIPTION Cardio-Plus COMPOUNDED PRESCRIPTION Cardiotrophin PMG COMPOUNDED PRESCRIPTION [facility] C COMPOUNDED PRESCRIPTION Cataplex E2 COMPOUNDED PRESCRIPTION Boswellia complex COMPOUNDED PRESCRIPTION Glucosamine Synergy FUROSEMIDE 20 MG TABLET Take 1 tablet by mouth once d* DILTIAZEM SR 120 MG 24 HR CAP Take 1 capsule by mouth once * WARFARIN 1 MG TABLET Take 6mg on Thursday, Thursday* WARFARIN 1 MG TABLET Take 6mg on Thursday, Thursday* WARFARIN 5 MG TABLET Take 6mg Thu,Thu,Thu,Thu,Sun * OTC PRODUCT [place]: Take 4 [...] t* 0 02/17/2017 Sig: TAKE 1 TABLET Thu, THU, THU, SUNEncounter Number: [id number] Status:Closed by MACHO VALENCIA DO on 02/17/17 PROGRESS Observed: 02/10/2017 Status: COMPLETED Source: [place] 9:02 AM [facility] RE[facility] O ID: [id number]: Marquise Rivera: (none) Author Type: PhysicianType: Progress [...] PRESCRIPTION Cardio-PlusCOMPOUNDED PRESCRIPTION Cardiotrophin PMGCOMPOUNDED PRESCRIPTION [facility]ver [facility] CCOMPOUNDED PRESCRIPTION Cataplex [id number] PRESCRIPTION Boswellia complexCOMPOUNDED PRESCRIPTION Glucosamine Synergyfurosemide (LASIX) [...] mg tablet Take 6mg Thu,Thu,Thu,Thu,Thu and 5mg allother days or as directed.OTC PRODUCT [facility] Sea: Take 4 capsules by mouth twice [...] for colon cancer 12/2016PAST SURGICAL HISTORYNo date: DBTLASBKHAGH83/30/2017: PASBCPKQKSL87/20/2017: EGD W/ BIOPSY SNGL/MLTPL2012: EGD W/O OR [...] kg (218 lb 14.4 oz) BMI 32.33 kg/x8Pvevfrl appearance: well developed, well nourished 66 year [...] patient to reconsider earliervalvular interventionThank you Dr. Valencia for the opportunity to evaluate Jayde Anderson. From the cardiac standpoint I hope this information will beof value to you in continuing his care.The patient is counseled and instructed in all of the above and verbalizesunderstanding.F/U at next scheduled visit 6 months, sooner if need be. Patient agreeswith this plan of care.This note was partially generated using [employer] voice recognition system,and there may be some incorrect words, spellings, and punctuation thatwere not noted in checking the note before saving.Marquise Cummins DO CNOV Observed: 02/10/2017 Status: COMPLETED Source: [place] 8:45 AM [facility] RE[facility] Office Visit (NATE) ---------JAYDE SALAMANCA ([id number]) 1950 MDate Time Provider Department02/10/17 8:45 AM MARQUISE CUMMINS During your visit today, we recorded the following information about you: Pulse Blood pressure Weight 85/ minute 100/68 99.3 kgMarquise Cummins DO 02/10/2017 9:10 AM SignedHistory of Present [...] PRESCRIPTION Cardio-PlusCOMPOUNDED PRESCRIPTION Cardiotrophin PMGCOMPOUNDED PRESCRIPTION Forever [facility] CCOMPOUNDED PRESCRIPTION Cataplex [id number] PRESCRIPTION Boswellia complexCOMPOUNDED PRESCRIPTION Glucosamine Synergyfurosemide (LASIX) [...] 5mg all otherdays or as directed.OTC PRODUCT [facility] Sea: Take 4 capsules by mouth twice [...] for colon cancer 12/2016PAST SURGICAL HISTORYNo date: GFAYIQTSKAAU14/30/2017: GEDILWGJIMD39/20/2017: EGD W/ BIOPSY SNGL/MLTPL12/2012: EGD W/O OR [...] (218 lb 14.4 oz) BMI 32.33 kg/ x3Ytiqnes appearance: well developed, well nourished 66 year [...] patient to reconsider earlier valvularinterventionThank you Dr. Valencia for the opportunity to evaluate Jayde Salamanca.From the cardiac standpoint I hope this information will be of value to you incontinuing his care.The patient is counseled and instructed in all of the above and verbalizesunderstanding.F/U at next scheduled visit 6 months, sooner if need be. Patient agrees withthis plan of care.This note was partially generated using [employer] voice recognition system, andthere may be some incorrect words, spellings, and punctuation that were notnoted in checking the note before saving.Sajan Ragsdaleolive view-ucla medical centermendel Provider: BALDO CORTES [[id number]]Allergies As of Date : 02/10/2017 Noted Allergy ReactionSEASONAL ALLERGIES 10/04/2012 8 - GI Upset Comments: headacheDate Reviewed: 02/10/2017Reviewed by: Chica Ac) MYRIAM Villalpando - Fully AssessedReason for Visit: Established Patient [175]Primary Visit Diagnosis:Severe aortic stenosis [I35.0] Other Visit Diagnoses:Chronic atrial fibrillation (HCC) [I48.2] Chronic anticoagulation [ Z79.01] Bilateral leg edema [R60.0] Hypercholesteremia [E78.00] Order(s):ECHO [[id number]] Order #: [id number]: 1 FUTUREPrescriptions as of 02/10/2017 Sig: COMPOUNDED [...] TABLET Take 6mg Thu,Thu,Thu,Sat,Sun * OTC PRODUCT Arctic Sea: Take 4 [...] anticoagulation [Z79.01] INVALID FOR* Status:Closed by MARQUISE CUMMINS DO on 02/10/17 PROGRESS Observed: 02/02/2017 Status: COMPLETED Source: BALS[place] 10:53 AM [facility] REPOSITORY O ID: [id number]: Macho Torrezervice: (none) Author Type: PhysicianType: Progress NotesFiled: 02/02/2017 11:59 AMNote Text:Patient presents with:Follow Up: 6 monthsHPI:Jayde Blade Salamanca is a 66 year old male who [...] notalways wearing his compression stockings/socks as much.Mr. Salamanca has past history of diabetes. Since our [...] exam was within the past 12 monthsMr. Salamanca reports history of hyperlipidemia. Current therapyincludes diet and exercise. His most recent lipid panels are reviewed.Cholesterol (mg/dL)Date Value12/12/2015 145 HDL Cholesterol (mg/dL)Date Value12/12/2015 33 LDL Cholesterol (mg/dL)Date Value12/12/2015 100 Triglyceride (mg/dL)Date Value2015 62 Mr. 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, diet and medications- side effects and [...] expressed understanding and agreed with the plan.Macho Valencia, [address] [place], [place] [address]Kqkcz: [phone]: PROGRESS Observed: 02/02/2017 Status: COMPLETED Source: BALSAM 10:49 AM [facility] REPOSITORY HNO ID: [id number]: Macho Torrezervice: (none) Author Type: PhysicianType: Progress NotesFiled: 02/02/2017 11:50 AMNote Text:Agree with belowMacho Valencia DO CNOV Observed: 02/02/2017 Status: COMPLETED Source: BALSAM 10:40 AM [facility] REPOSITORY Office Visit (FAMPWS) ---------JAYDE SALAMANCA ([id number]) 1950 MDate Time Provider Department02/02/17 10:40 AM [facility] During your visit today, we recorded the following information about you: Temperature Pulse Respiration Blood pressure 98 degrees 80/minute 20/minute 100/60 Weight 98.4 kgMacho Valencia DO 02/02/2017 11:59 AM SignedPatient presents with:Follow Up: 6 monthsHPI:Jayde Salamanca is a 66 year old male who [...] not always wearing hiscompression stockings/socks as much.Mr. Salamanca has past history of diabetes. Since our [...] exam was within the past 12 monthsMr. Salamanca reports history of hyperlipidemia. Current therapy includesdiet and exercise. His most recent lipid panels are reviewed.Cholesterol (mg/dL)Date Value12/12/2015 145 HDL Cholesterol ( mg/dL)Date Value12/12/2015 33 LDL Cholesterol (mg/dL)Date Value12/12/2015 100 Triglyceride (mg/dL)Date Value12/12/2015 62 Mr. 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 Status:Closed by MACHO VALENCIA DO on 02/02/17 PROGRESS Observed: 02/02/2017 Status: COMPLETED Source: BALS[place] 10:30 AM [facility] REPOSITORY HNO ID: [id number]: Dada Dos Santos LPNService: (none)Author Type: (none)Type: Progress NotesFiled: 02/02/2017 10:31 AMNote Text:patient had inr completed at [facility] CCpatients inr is 2.6 (patients inr [...] upINR. HOSP Observed: 02/02/2017 Status: COMPLETED Source: NETTA 10:30 AM [facility] REPOSITORY Anticoagulation Visit (COUMWS) ---------JAYDE SALAMANCA ([id number]) 1950 MDate Time Provider Department02/02/17 10:30 AM [facility] COUMWS During your visit today, we recorded the following information about you:Dada Dos Santos LPN 02/02/2017 10:31 AM Signedpatient had inr completed at [facility] CCpatients inr is 2.6 (patients inr [...] in 4 weeks for follow up INR.Macho Valencia DO 02/02/2017 11:50 AM SignedAgree with Rosalee Skaggs Provider: MACHO VALENCIA [[id number]]Allergies As of Date: 2016 Noted Allergy ReactionSEASONAL ALLERGIES 10/04/2012 8 - GI Upset Comments: headacheDate Reviewed: 02/02/2017Reviewed by: Kita Newell LPN - Fully AssessedReason for Visit: Anticoagulation [8]Primary Visit Diagnosis:Atrial fibrillation, unspecified type (HCC) [I48.91] Order(s):INR (POC) [3127606] Order #: [id number]. #:[id number] as of 02/02/2017 Sig:X METFORMIN 500 MG TABLET Take 1 tablet by mouth twice * DILTIAZEM SR 120 MG 24 HR CAP Take 1 capsule by mouth once * WARFARIN 1 MG TABLET Take 6mg on Thursday, Thursday* WARFARIN 1 MG TABLET Take 6mg on Thursday, Thursday* WARFARIN 5 MG TABLET Take 6mg Thu,Thu,Thu,Sat,Sun * OTC PRODUCT [facility] Sea: Take 4 capsules b* ALOE VERA [...] INVALID FOR*Follow-up and Disposition History RecordedEncounter Number: [id number] Status:Closed by CHICA ARELLANO MA on 02/02/17 PROTIME Collected: 01/28/2017 Status: F Source: BALSAM 4:05 PM [facility] REPOSITORY TYPE CODE TESTS RESULT OUT [...] to 3.5 for older generation mechanical heart valves.Rodolfo, et al. CHEST 2004: 126:204S to 233S. Performed By: #### PT ####[facility] [address] [place], [place] [phone] HEMOGLOBIN A1C Collected: 01/28/2017 Status: F Source: BALSAM 3:43 PM [facility] REPOSITORY TYPE CODE TESTS RESULT OUT OF REFERENCE UNITS RANGE LAB HGBA1C High 4.3-5.6 % Hemoglobin 8.0 A1c Result Comment: [place] Diabetes Association guidelines indicate that patients with HgbA1c in the range 5.7-6.4% are at increased risk for development of diabetes , and intervention by lifestyle modification may be beneficial. HgbA1c greater or equal to 6.5% is considered diagnostic of diabetes. LAB HBA0 mg/dL Est. Average 183 Glucose Result Comment: eAG: (Estimated average glucose) is a calculated value from HgbA1c and is hardware supplies sales representative of the average blood glucose level in the last 2-3 month period. Performed By: #### HBA1C ####[facility] [address] [place], [place] [phone] ALBUMIN/CREAT RATIO Collected: 01/28/2017 Status: F Source: BALSAM 3:43 PM [facility] REPOSITORY TYPE CODE TESTS RESULT OUT OF REFERENCE UNITS RANGE LAB UCRR 20-300 mg/dL 104.3 Creatinine,Ur ine,Ran LAB UALBR High 0.0-23.0 mg/L Albumin 374.6 Urine Random LAB UALBCR High 0-30 mg/g 359 Albumin/Creat Ratio Result Comment: 30 to 300 mg/g indicates an increased risk for diabetic nephropathy. Greater than 300 mg/g is consistent with clinical nephropathy. (Am J Kidney Disease 1994, 25:107) Performed By: #### UACR ####[facility] [address] [place], [place] [phone] OBSOLETE Observed: 01/26/2017 Status: COMPLETED Source: BALSAM 12:00 AM [facility] REPOSITORY Refill (NATE) ---------[facility]ANCA ([id number]) 1950 [facility] Department01/26/17 ABHISHEK HEAD During your visit today, we recorded the following information about you:Bob Camp RN, RN 01/26/2017 9:43 AM SignedPharmacy fax requesting refills as follows:Pending Prescriptions Disp Refills DILTIAZEM SR 120 MG 24 HR CAP 90 capsule 3 Sig: Take 1 capsule by mouth once daily. MIKE: No Please review and advise.Damaris Cantrell has been identified by name and date [...] once daily. MIKE: No Authorizing Provider: ABHISHEK HAED MDAdam Gilmor, RN, RN 01/26/2017 2:08 PM [...] TABLET Take 6mg Thu,Thu,Thu,Sat,Sun * OTC PRODUCT [facility] Sea: Take 4 capsules b* ALOE VERA [...] 01/26/17 OBSOLETE Observed: 01/20/2017 Status: COMPLETED Source: BALSAM 12:00 AM [facility] REPOSITORY [facility] ---------JAYDE SALAMANCA ([id number]) 1950 MDate Time Provider Department01/20/17 MCAHO [facility]ENCIA [facility] During your visit today, we recorded the following information about you:Norris Aguillon PharmD 01/22/2017 9:29 AM SignedPlease address refill request for patient. Patient is due for INR.GABE: 06/13/2016NOV: 02/02/2017Pharmacist Refill Authorization ReviewName: Jayde RamiresN: [id number]: 01/22/2017Time: 9:29 AMRefill authorization request(s) received via pharmacy request and reviewedunder effective consult agreement. Upon review , did confirm that an activepatient-provider relationship exists and that the prescriber is a participatingphysician under the consult agreement.The medication(s) fall under the following categories: Category 3: 1 corresponding medication(s) does not qualify for renewal due toneeding a physician consult and review.Additional actions taken: Contacted prescriber to discuss.Wild ChavezDPharmacy Managed Authorization CenterPhone Current Outpatient Prescriptions:warfarin (COUMADIN) 1 mg tablet [...] capsule by mouth once * OTC PRODUCT [facility] Sea: Take 4 capsules b* ALOE VERA [...] 5mg the rest of the weekEncounter Number: [id number] Status:Closed by MACHO VALENCIA DO on 01/23/17 CNPN Observed: 01/20/2017 Status: COMPLETED Source: BALSAM 12:00 AM [facility] REPOSITORY Telephone (FAMPWS) ---------JAYDE SALAMANCA ([id number]) 1950 MDate Time Provider Department01/20/17 MACHO VALENCIA [place]WS During your visit today, we recorded the following information about you:Norris Aguillon PharmD 01/22/2017 9:29 AM SignedPlease address refill request for patient. Patient is due for INR.GABE: 06/13/2016NOV: 02/02/2017Pharmacist Refill Authorization ReviewName: Jayde RamiresN: [id number]: 01/22/2017Time: 9:29 AMRefill authorization request(s) received via pharmacy request and reviewedunder effective consult agreement. Upon review , did confirm that an activepatient-provider relationship exists and that the prescriber is a participatingphysician under the consult agreement.The medication(s) fall under the following categories: Category 3: 1 corresponding medication(s) does not qualify for renewal due toneeding a physician consult and review.Additional actions taken: Contacted prescriber to discuss.Boris Chavezharady Managed Authorization CenterPhone Current Outpatient Prescriptions:warfarin (COUMADIN) 1 mg tablet [...] daily.No current facility-administered medications for this visit.Macho Valencia DO 01/23/2017 7:12 AM SignedPatient is OVERDUE [...] capsule by mouth once * OTC PRODUCT [facility]: Take 4 capsules b* ALOE VERA ORAL [...] 5mg the rest of the weekEncounter Number: [id number] Status:Closed by MACHO VALENCIA DO on 01/23/17 PROGRESS Observed: 01/01/2017 Status: COMPLETED Source: BALSAM 3:00 PM [facility] REPOSITORY HNO ID: [id number]: Jaqueline Alcala RNService: (none) Author Type: (none)Type: Progress NotesFiled: 01/02/2017 6:15 AMNote Text:OPERATIVE NOTATION FOR [facility] SURGICAL PROCEDURE.2016Jayde Salamanca 1950 [id number] malePROCEDURE: EGD WITH BIOPSY - 32931-392 and COLONOSCOPY - 95742-084DYOMMPQ: Eva Love M.D. 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, screening [...] - Clean ContaminatedOperative note dictated in the [facility] dictation system.Lety Love MDEncounter Status:Closed by LETY LOVE MD on 01/02/17Encounter Number: [id number] EMERGENCY DEPARTMENT Observed: 12/31/2016 Status: F Source: LIBERTY SUMMARY 6:35 PM [facility] REPOSITORY [facility] [id number] [place] [address]Zrxzrdjdq Department SummaryMR#: [id number] Acct: [id number]: JAYDE SALAMANCA JUNIOR Rep #: [id number]: [birth year] From: Gosia Payton MDPCP: Macho Valencia DO Status: DEP ERDATE OF SERVICE: 12/26/2016CHIEF [...] his PCP.DISPOSITION:Discharge.IMPRESSION:Left leg edema.Gosia Payton MDT: NTSJOB: [id number] 1835 <Electronically signed by Gosia Payton MD>Date Gosia Payton MDCosigner Signature (If Indicated): Date CC: Macho Valencia DO Date Dictated: 12/27/160Date Transcribed: 12/27/1639Transcriptionist:Signed OPERATIVE REPORT Observed: 12/31/2016 Status: F Source: LIBERTY 7:12 AM [facility] [place] [place] REPOSITORY [facility] [id number] [address]Rntqriyjv ReportMR#: [id number] Acct: [id number]: ANABELLA,JAYDESHERLYN ORTIZ Rep #: [id number]: 1950 66 From : Lety Love MDPCP: Valencia DOMacho Status: DEP CLIDATE OF SERVICE: 12/30/2016DATE OF SERVICE:12/30/2016PRIMARY CARE PHYSICIAN:Dr. PritchardONCOLOGIST:PRAMOD MuñozREOPERATIVE DIAGNOSIS:History of gastroesophageal junction carcinoma. Need for screening for intestinalmalignancy.POSTOPERATIVE DIAGNOSES:Scarred inflammatory changes at the gastroesophageal junction. Chronic antral gastritis.Sigmoid diverticulosis.PROCEDURES:Esophagogastroduodenoscopy with biopsies. Colonoscopy.SURGEON:Lety Love MDANESTHESIA:Neisha.DESCRIPTION OF PROCEDURE:Time out and informed consent [...] Lilly C: Dr. Moo Amador MDT: NTSJOB: [id number] <Electronically signed by Lety Love MD>Date Lety CAMILOosigner Signature (If Indicated): Date CC: Macho Valencia DO; Roc Amador MD; Lety Love MD Date Dictated: 12/30/16 1043Date Transcribed: 12/30/16 1043Transcriptionist:Signed GASTRIC BIOPSY Observed: 12/30/2016 Status: F Source: LISA 10:03 AM [facility] [place] [place] REPOSITORY Patient: JAYDE SALAMANCA JUNIOR : 1950 (66 /M) Acct Num: [id number] Phys: Ivan CUMMINS,Lety Unit Num: [id number] Loc: EN Specimen: Received: 12/30/16 - 1057 Spec Type: Gastric Bx TISSUES TISSUES: COMMENT A. The results of immunohistochemistry for Helicobacter pylori will be reportedseparately ([id number]). B. Alcian blue/ PAS stain with matched [...] is totally submitted in one cassette. / AZALIA:higinio 12/30/16 TC:3 CPT: 01667 x2, 72886 HEADER OPERATION: EGD PRE-OP DIAGNOSIS: History of [...] dysplasia or malignancy in the submitted specimen. AZALIA:higinio 12/31/16 Signed Freeman Sood 12/31/16 <signature on file> Performed By: #### PGASB ####[facility] [address] [place], [place], [address] PROTHROMBIN TIME Collected: 12/30/2016 Status: F Source: LIBERTY FINGERSTICK 8:01 AM [facility] [place] [place] REPOSITORY TYPE CODE TESTS RESULT OUT OF REFERENCE UNITS RANGE LAB L9200.1001 High 11.9-14.4 SEC PROTIME 18.8 ISTAT Result Comment: Reference Range 11.9 - 14.4 Performed By: #### L9200.1001 ####[facility] LaboratoryPoint of [address] [place] [address] INR FINGERSTICK Collected: 12/30/2016 Status: F Source: LIBERTY 8:01 AM [facility] [place] [place] REPOSITORY TYPE CODE TESTS RESULT OUT OF RANGE REFERENCE UNITS LAB L9200.1999 Normal INR 1.60 ISTAT Result Comment: Critical Value > 3.5 Performed By: #### L9200.1999 ####[facility] LaboratoryPoint [facility] HospitalCchv[address] [facility] [place] [address] IMMUNOHISTOCHEMISTRY Observed: 12/30/2016 Status: F Source: LIBERTY 12:00 AM [facility] [place] [place] REPOSITORY Patient: JAYDE SALAMANCA JUNIOR : 1950 (66 /M) Acct Num: [id number] Phys: Lety Love MD Unit Num: [id number] Loc: EN Specimen: [id number] Received: 12/31/161047 Spec Type: IMMUNO TISSUES TISSUES: SPECIMEN INFORMATION: Tissue Source: A - Antral biopsy Clinical Info: History of cancer Specimen Number: [id number] CPT code: 18046 METHODOLOGY: Deparaffinized sections of prefer/formalin-fixed tissue or [...] developed and their performance characteristics determined by [facility]. They may not have been cleared or approved by the U.S. Food and Drug Administration. The FDA has determined that such clearance or approval is not necessary. INTERPRETATION: A. Antral biopsy: Negative for Helicobacter pylori organisms. SJ:higinio 12/31/16 PHYSICIAN AND INSTITUTION [facility] [address] [place], [place] [address] Signed Freeman Sood 12/31/16 <signature on file> Performed By: #### PIMM ####[facility] [address] [facility] [place], [address] ALLERGIES ALLERGIES DATE TYPE / CODE NAME / CODE REACTION SEVERITY SOURCE 12/22/2017 Drug No Known Unknown [facility] Allergy/416 Allergies/S70874 [facility] 109459(SNOM 0388(RXNORM) Repository ED CT) 12/26/2016 Drug No Known [facility] Allergy/416 Allergies/L98440 [facility] 805453(SNOM 0388(RXNORM) Repository ED CT) 10/04/2012 Environ/420 SEASONAL GI UPSET [facility] 438039(SNOM ALLERGIES [place] [facility]) Repository ENCOUNTERS ENCOUNTERS ADMIT/DISCHARGE ACCOUNT ADMITTING ENCOUNTER LOCATION SOURCE NUMBER CLASS 12/29/2017 [id number] Ambulatory [facility] ing:[facility] Repository 12/24/2017 [id number] [facility] ing:[facility] Repository 12/22/2017/12/23/19 [id number] Ambulatory BMSBuilding:B [address] [facility] Repository 12/21/2017 [id number] Ambulatory BMSBuilding:Marvel Gonzalez MS.[facility] Repository 12/04/2017/12/08/19 [id number] Ambulatory [address] Repository 09/16/2017/09/17/19 [id number] Ambulatory [address] Repository 08/05/2017/08/05/19 [id number] Ambulatory [address] Repository 08/05/2017/08/05/19 [id number] Ambulatory [address] Repository 07/07/2017/07/08/20 [id number] Ambulatory [address] Repository 05/05/2017/05/06/20 [id number] Ambulatory [address] Repository 04/17/2017/04/20/20 [id number] Ambulatory [address] Repository 03/18/2017/03/19/20 [id number] Ambulatory [address] Repository 02/10/2017/02/11/20 [id number] Ambulatory [address] Repository 02/02/2017/02/03/20 [id number] Ambulatory [address] Repository 02/02/2017/02/05/20 [id number] Ambulatory [address] Repository 01/28/2017 [id number] Ambulatory [facility] Repository 12/30/2016/12/31/19 [id number] Ambulatory [address] ing:ENRoom: Repository AC10 12/26/2016/12/27/19 [id number] Emergency [address] ing:ED Repository PAYERS PAYERS ENCOUNTER GUARANTOR PAYER SUBSCRIBER SOURCE 12/29/2017 JAYDE Murguia Primary JAYDE J [place] ANABELLA Insurance:[facility].[address] [facility] [place], [place] GROUPPolicy Number: [id number] Repository [address]Imu: [phone] [id number] [phone] (HP) Date: [address] [address]GH: 12/29/2017 Secondary NOT GIVENUNK Lisa Insurance:SELF PAY [facility] Number: Effective Repository Date:2017-12-22 12/24/2017 JAYDE Murguia Primary Insurance:[facility] JAYDE J [place] ANABELLA PACKAGE PLANPol[facility].[address] [facility] Number: Effective Jr.: [place], [place] Date:2017-12-22 [id number] Repository [address]Jbo: () 12/24/2017 Secondary NOT GIVENUNK [place] Insurance:SELF PAY [facility] Number: Effective Repository Date:2017-12-22 12/22/2017 JAYDE J Primary JAYDE J [place] ANABELLA Insurance:[facility] Jr.[address] [facility] Number: Jr.: [place], [place] Effective [id number] Repository [address]Edk: [phone] Date:2017-12-14 (HP) 12/22/2017 Secondary NOT GIVENUNK Lisa Insurance:SELF PAY [facility] Number: Effective Repository Date:2017-12-15 12/21/2017 JAYDE Primary NOT GIVENUNK [place] [id number] Insurance:SELF PAY [facility], Number: Effective Repository [place] [address]Yik: Date:2017-12-21 (HP) 12/30/2016 JAYDE ANGEL Primary Insurance:[facility] NOT GIVENUNK [place] [id number] S PACKAGE [facility] Number: Effective [place], [place] Date: Repository [address]Xml: (HP) 12/26/2016 JAYDE ANGEL Primary JAYDE ANGEL Lisa [id number] Insurance:[facility] Number: [id number] [place], [place] [id number] Repository [address]Nyk: ([phone]) Date: (HP)
[2017-12-29 07:01] LABS: Prothrombin Time Fingerstick 14.4 SEC (11.9-14.4)
[2017-12-29 09:05] LABS: Base Excess 5 mmol/L (-2 to +2); Bicarbonate 30.1 mmol/L (22-26); Blood Gas Specimen Type ART; PO2 62 mmHG (75-100); SO2 90 % (95-99); Total Carbon Dioxide 32 mmol/L; pCO2 50.7 mmHg (35-45); pH 7.38 (7.35-7.45)
[2017-12-29 09:05] LABS: Blood Gas Specimen Type VEN; VBG BASE EXCESS 6 mmol/L (-1.0-3.5); VBG Bicarbonate 31 mmol/L (22-26); VBG Oxygen Content 33 mmol/L (23-33); VBG PO2 32 mmHg (25-40); VBG SO2 57 % (50-70); VBG pCO2 56.1 mmHg (41-51); VBG pH 7.35 (7.32-7.42)
--- NOTE | 2017-12-29 09:16 | CL.D_ITS ---
Patient Name: JAYDE KYLE Study Date: 12/29/2017 Performing: Zach Ramirez MD Ht: 70.07 inches 178 cm : 1950 Wt: 229.28 lbs 104 kg Age: 67 Gender: male BSA: 2.21 PROCEDURE(S) PERFORMED [id number]/LHC/COR/LV CLINICAL PROFILE AND INDICATIONS Indications: LV Dysfunction, Valvular Disease Heart Failure: None Stress/Imaging Stress/Image Study Performed: No Angina Classification Anginal Classification w/in 2 Weeks: CCS III CAD Presentations: Other: Dyspnea on exertion Comorbidities/Risk Factors: Hypertension Dyslipidemia Diabetes Mellitus: Diabetes Therapy: Diet CONCLUSIONS Segmented LV systolic dysfunction- Mild Non obstructive coronary arteries Aortic Valve Calcification- Mild Right heart pressures - mildly elevated moderate to severe aortic stenosis. RECOMMENDATIONS Evaluate for TAVR at [facility]. Restart coumadin therapy. D/C plavix. DESCRIPTION OF PROCEDURE The patient arrived to the procedure lab. The risks and benefits of the procedure as well as a full d escription of our services here and current unavailability of surgical backup were fully explained to the patient and/or their significant other prior to the catheterization. The Timeout was completed, verifying the correct patient and procedure. The patient's procedural site was prepped and draped in the usual fashion. Local anesthetic was given subcutaneously to right groin region with Lidocaine 2%. Using a modified Seldinger technique, arterial access was obtained via the right femoral artery, a 4 Fr sheath was inserted Venous access was obtained via the right femoral vein, a 7Fr sheath was insert ed. A 7Fr thermal dilution catheter was inserted and right heart pressures were recorded, it was then advanced to PA position for cardiac outputs. Thermal dilution cardiac outputs were then recorded. O2 saturations were then obtained. The Thermal dilution catheter was then removed. Left Ventriculograph y was performed in BOWLING projection using a 4 Fr. Pigtail catheter. Simultaneous pressures were then re corded. Left Coronary Artery selective angiography was performed in multiple views using a 4 Fr. JL5 catheter. Right Coronary Artery selective angiography was then performed in multiple views using a 4 Fr. 3DRC catheter.The arterial sheath was pulled and manual compression applied until hemostasis is a chieved.. The venous sheath was then pulled and manual compression applied until hemostasis achieved CORONARY ANGIOGRAPHY DOMINANCE: Left Dominant LEFT HEART ASSESSMENT Left Ventricular Ejection Fraction: by LV Gram 55 % Inferior Basal Hypokinesis - Mild Depressed Left Ventricular systolic function RIGHT HEART ASSESSMENT Thermal CO: 4.43 Thermal CI: 2 Samson CO: 4.64 Samson CI: 2.1 PW: /15 16 PA: 46/21 30 RV: 40/0 5 RA: /11 9 PVR: 253 SVR: 1607 Aortic Valve Area: 0.92 Aortic Valve Index: 0.42 Aortic Valve Mean Gradient: 32.1 LEFT MAIN: Angiographically normal LEFT ANTERIOR DECENDING ARTERY: PROX LAD: Mild luminal irregularities less than 30% CIRCUMFLEX ARTERY: Angiographically normal RIGHT CORONARY ARTERY: Angiographically normal COMPLICATIONS No Complications PROCEDURE MEDICATIONS SUMMARY OF HEMODYNAMIC DATA Time AIR REST ECG 07:22:06 RA /11 (9) SV 08:45:06 RV 40/0, 5 08:45:35 PA 46/21 (30) PA 08:46:16 PW /15 (16) PV 08:48:14 LV 152/-9, 4 08:52:55 LV 162/-12, 9 08:53:02 LV 152/-9, 2 08:54:54 PW /20 (16) 08:54:54 LV 163/-11, 5 08:55:00 PW /17 (16) 08:55:00 LV 159/-12, 0 08:55:13 RV 41/20, 24 08:55:13 LV 145/-10, 9 08:55:41 RV 38/0, 6 08:55:41 LV 159/1, 21 08:57:23 LV 158/-12, -4 08:57:29 LVp 156/-12, 9 08:57:35 AOp 122/81 (99) 08:57:40 AO 109/84 (98) SA 08:59:28 Valve Area (c P-P/ms Time AIR REST Aortic 0.92 32.1 mn/234 ms 34.0 pk/234 ms 08:57:35 Type SV CO (l/m) CI (l/m/ HR Time AIR REST Thermal 43.40 4.43 2.00 102 07:22:06 Samson 45.50 4.64 2.10 102 07:22:06 Label % O2 Pres/Loc Time AIR REST PA 57 PA 09:02:08 AO 90 PV 09:02:14 Signed By Zach Ramirez MD On 12/29/2017 09:16:02 Zach Ramirez MD
== END ==
PROVIDERS: Family Provider Student in an Organized Health Care Education/Training Program; PCP Student in an Organized Health Care Education/Training Program; Visit Provider Internal Medicine Cardiovascular Disease
DX: I38 Endocarditis, valve unspecified (principal); I51.9 Heart disease, unspecified; R06.00 Dyspnea, unspecified; I35.0 Nonrheumatic aortic (valve) stenosis; E78.5 Hyperlipidemia, unspecified; I48.2 Chronic atrial fibrillation; F17.200 Nicotine dependence, unspecified, uncomplicated; Z79.01 Long term (current) use of anticoagulants; Z79.899 Other long term (current) drug therapy
CPT/HCPCS: 36415; 36416; 71046; 80048; 80061; 80076; 82803; 85025; 85610; 85730; 93460; C1751; C1769; C1894; Q9967

== ENCOUNTER 2018-01-22 07:45 | Day surgery (SDC) | payer SELFPAY ==
--- NOTE | 2018-01-22 | GASB_PTH ---
PATIENT: JAYDE KYLE Jr. LOC: EN U#:[id number] AGE/SX: 67/M ROOM: RE01/22/[address]: Dr. Chilango Love MD : 1950 BED: DIS: 01/22/2018 SPEC #: [id number] RECD: 01/22/18 09:55 STATUS: FAISAL [place] #: [id number] MANDI: 01/22/18 00:[address]: Chilango Love DEPT: SURGICAL PATHOLOGY RECD BY: Robles Jara ENTERED: 01/22/18 10:14 SP TYPE: Gastric Bx OTHR DR: Dr. Macho Solorio, DO Tissues: A - Gastric mucous membrane B - Gastric mucous membrane Procedures: Special Stain Group II Surgery Specimen Level IV Alcian Blue/PAS (control) HEADER OPERATION: EGD PRE-OP DIAGNOSIS: History stomach CA TISSUE SUBMITTED: A ? Antral biopsy, B ? GE junction biopsy MICROSCOPIC DIAGNOSIS A. Antral biopsy: Mild gastritis. B. GE junction, biopsy: Fragments of gastroesophageal mucosa with chronic inflammation. Intestinal metaplasia (goblet cell metaplasia) is not identified. Negative for malignancy. SJ:higinio 01/25/18 COMMENT A. The results of immunohistochemistry for Helicobacter pylori will be reported separately ([id number]). B. Alcian blue/PAS stain with matched control is used in the evaluation of the specimen. Please make reference to previous specimen ([id number]) antral biopsy with diagnosis of mild gastritis and GE junction, biopsy with diagnosis of fragments of squamous epithelium and gastric mucosa with chronic inflammation. MICROSCOPIC DESCRIPTION Slides are reviewed. A. The specimen shows fragments of gastric mucosa with chronic inflammatory cell infiltrates in the lamina propria consisting of lymphocytes and plasma cells, consistent with mild chronic gastritis. GROSS DESCRIPTION A - Received in fixative is one container labeled with the patient's name and designated antral biopsy. The specimen consists of one irregular fragment of light nichols soft tissue that measures 0.8 x 0.2 x 0.1 cm. The specimen is totally submitted in one cassette. B - Received in fixative is one container labeled with the patient's name and designated GE junction biopsy. The specimen consists of multiple irregular fragments of light nichols soft tissue that in aggregate measure 2 x 0.5 x 0.2 cm. The specimen is totally submitted in one cassette. / AZALIA:higinio 01/22/18 TC:3 CPT: 86765 x2, 74425
--- NOTE | 2018-01-22 | IMM_PTH ---
PATIENT: JAYDE KYLE Jr. LOC: EN U#:[id number] AGE/SX: 67/M ROOM: RE01/22/[address]: Dr. Chilango Love MD : 1950 BED: DIS: 01/22/2018 SPEC #: [id number] RECD: 01/25/18 13:24 STATUS: FAISAL RELeandro #: [id number] MANDI: 01/22/18 00:[address]: Chilango Love DEPT: IMMUNOHISTOCHEMISTRY RECD BY: Chrissy Prajapati ENTERED: 01/25/18 13:25 SP TYPE: IMMUNO OTHR DR: Dr. Macho Solorio, DO Tissues: A - Stomach, NOS Procedures: H Pylori (initial) PHYSICIAN & INSTITUTION [place] [id number] SPECIMEN INFORMATION: Tissue Source: A ? Antral biopsy Clinical Info: History stomach CA Specimen Number: [id number] CPT code: 85225 METHODOLOGY: Deparaffinized sections of prefer/formalin-fixed tissue or PAP/DQ stained slides are incubated with monoclonal/polyclonal antibodies/oligonucleotide probes. Localization is made via biotin free immunoperoxidase method. Appropriate controls are performed and reacted as expected. Results on target cell population are indicated in the following table: RESULTS: ANTIBODY / CLONE RESULT Block A H Pylori (polyclonal) negative These tests were developed and their performance characteristics determined by [facility]. They may not have been cleared or approved by the U.S. Food and Drug Administration. The FDA has determined that such clearance or approval is not necessary. INTERPRETATION: A. Antral biopsy: Negative for Helicobacter pylori organisms. SJ:higinio 01/25/18
[2018-01-22 08:02] VITALS: BP 110/77; PULSE 93; RESP 16; TEMP 36.4; O2SAT 97; BMI 32.3
--- NOTE | 2018-01-22 08:35 | PCM.OPRPT ---
Problem List (1) History of esophageal cancer Status: Acute Report of Operation Date of Procedure: 01/22/18 Pre-Operative Diagnosis: Personal history of e.g. 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 67-year-old gent was taken to the endoscopy suite. His auras pharynx was anesthetized with Topex. Because of severe aortic stenosis received 25 mg Demerol and 1.5 mg of Versed is intravenous sedation. Under direct visitation GF gastroscope was inserted into the esophageal inlet. The proximal mid esophagus did not appear to be remarkable. The EG junction was at 38 cm. There was some inflammatory change in cicatrix. The scope was to be was able to be advanced into the stomach. Very mild erythema noted of the antrum. The scope was advanced through the pylorus. The first and second portions of the duodenum were inspected this did not appear to be remarkable. The scope was withdrawn back into the stomach and retroflexed. The EG junction and evidence of some cicatrix scarring was noted. I did not see any recurrent mass. The scope was placed back in antegrade viewing position. The mild erythema of the antrum noted and a biopsy was obtained. Excess fluid and air was aspirated free. The scope was withdrawn to the e.g. junction and multiple biopsy was obtained at that site of treatment. Hemostasis was intact. The scope was then additionally further withdrawn without additional abnormality. 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 Biopsies are pending. Pending the patient's oncologic course under the direction of Dr. Roc Amador and his ongoing treatment for his aortic stenosis follow-up endoscopy can be as pertinent. Medications were given at 0821. The procedure was started 0824. The procedure was completed at 0832. Cc: Dr. Macho Solorio and Dr. Roc Love M.D., F.A.C.S. Type of Anesthesia:: IV Sedation
[2018-01-22 08:40] VITALS: BP 110/77; BP 116/87; PULSE 108; RESP 16; TEMP 36.1; O2SAT 94
[2018-01-22 08:45] VITALS: BP 109/79; BP 110/77; PULSE 97; RESP 16; O2SAT 97
[2018-01-22 08:50] VITALS: BP 110/77; BP 96/82; PULSE 98; RESP 16; O2SAT 95
[2018-01-22 09:00] VITALS: BP 107/81; BP 110/77; PULSE 95; RESP 16; TEMP 36.8; O2SAT 97
[2018-01-22 09:19] VITALS: BP 110/77
== END 2018-01-22 09:59 | disposition home or self-care (01) ==
LOC: EN 07:45
PROVIDERS: Family Provider Student in an Organized Health Care Education/Training Program; PCP Student in an Organized Health Care Education/Training Program; Visit Provider Surgery
PROC: (CPT 43239; principal; 2018-01-22 08:10)
DX: K29.70 Gastritis, unspecified, without bleeding (principal); L90.5 Scar conditions and fibrosis of skin; I35.0 Nonrheumatic aortic (valve) stenosis; Z85.028 Personal history of other malignant neoplasm of stomach; Z79.01 Long term (current) use of anticoagulants
CPT/HCPCS: 43239; 88305; 88313; 88342; 99152; J7120

== ENCOUNTER → 2018-03-04 11:42 | Outpatient (CLI) | payer OTHER, SELFPAY ==
--- NOTE | 2018-03-04 12:00 | EKG12_ITS ---
Test Reason : PREOP Blood Pressure : / mmHG Vent. Rate : 101 BPM Atrial Rate : 220 BPM P-R Int : 000 ms QRS Dur : 106 ms QT Int : 360 ms P-R-T Axes : 000 069 -24 degrees QTc Int : 466 ms Atrial fibrillation with rapid ventricular response Low voltage QRS (limb leads) Nonspecific T wave abnormality Abnormal ECG Confirmed by USAMA CUMMINS, JATINDER ([id number]), electronic news gathering editor JET NEGRETE ([id number]) on 03/08/2018 1:38:34 PM Referred By: Oral aCndelaria Confirmed By:JATINDER FORRESTER MD
[2018-03-04 12:23] LABS: Hematocrit 41.4 % (40-54); Hemoglobin 13.9 g/dl (13.0-16.5); Mean Corp Hgb Conc 33.6 g/gl (32-36); Mean Corpuscular Hgb 32.3 pg (27.0-32.0); Mean Corpuscular Volume 96.1 fL (80-94); Platelet Count 156 K/mm3 (150-450); RBC Distribution Width SD 51.6 fl (35.1-43.9); Red Blood Count 4.31 M/mm3 (4.6-6.2); White Blood Count 6.5 K/mm3 (4.4-11.0)
[2018-03-04 12:28] LABS: Anion Gap 2 (5-15); BUN 20 mg/dL (7-18); BUN/Creat Ratio 17.9 RATIO (10-20); Calcium,Total 8.5 mg/dL (8.5-10.1); Chloride 101 mmol/L (98-107); Creatinine, Serum 1.12 mg/dL (0.70-1.30); EST Glomerular Filtration Rate 69 mL/min (>60); Est Glom Filt Rate - Afr Amer 84 mL/min (>60); Glucose 190 mg/dL (74-106); Potassium 4.1 mmol/L (3.5-5.1); Sodium Level 136 mmol/L (136-145)
[2018-03-04 12:30] LABS: Scan Indicated on CBC? Y/N NO
== END ==
PROVIDERS: Family Provider Student in an Organized Health Care Education/Training Program; PCP Student in an Organized Health Care Education/Training Program; Visit Provider Urology
DX: N47.1 Phimosis (principal)
CPT/HCPCS: 36415; 80048; 85027; 93005

== ENCOUNTER 2018-07-16 10:21 | Emergency (ER) | payer OTHER, SELFPAY ==
[2018-07-16 10:23] VITALS: BP 101/75; PULSE 132; RESP 14; TEMP 36.4; O2SAT 97; BMI 29.5
[2018-07-16 10:32] VITALS: BP 101/75; PULSE 132; RESP 14; TEMP 36.4
--- NOTE | 2018-07-16 10:32 | EKG12_ITS ---
Test Reason : PALPS Blood Pressure : / mmHG Vent. Rate : 129 BPM Atrial Rate : 153 BPM P-R Int : 000 ms QRS Dur : 098 ms QT Int : 318 ms P-R-T Axes : 000 049 -19 degrees QTc Int : 465 ms Atrial fibrillation with rapid ventricular response Nonspecific ST abnormality Abnormal QRS-T angle, consider primary T wave abnormality Abnormal ECG Confirmed by PINKY CUMMINS, MARICEL ([id number]), loan expeditor JET NEGRETE ([id number]) on 07/19/2018 7:38:07 AM Referred By: ASYA Confirmed By:MARICEL VANCE MD
--- NOTE | 2018-07-16 10:37 | ED.DCSUM_ITS ---
- ER Visit Summary Date of Service: 07/16/18 Chief Complaint: Palpitations History of Present Illness: The patient is a 68 M who presents with palpitations. Started today. Earlier this week the patient had a transaortic valve replacement as well as a watchman device deployed. He went home on Thursday. Today, Thursday, he started with palpitations. At his discharge, he was cardioverted. He was taking Cardizem 120 mg daily but this was discontinued because he was in a normal sinus rhythm. He is currently on Eliquis and warfarin. When his warfarin was therapeutic he was to stop the Eliquis. His surgery was done up at the [facility]. He denies any chest pain with his symptoms. Physical Examination: Vital signs reviewed. HEENT exam unremarkable. Heart is irregularly irregular and tachycardic without murmurs. Lungs are clear to auscultation. Abdomen is soft and nontender. Extremities reveal no edema. Skin exam normal. Wound in the right groin is clean and dry and intact. There is no tenderness to palpation in this area. Neurologic exam normal. Test Results: EKG is A. fib with rate of 129. There are nonspecific ST and T wave changes. Laboratory studies reveal an INR of 1.9, troponin of 0.096 Emergency Department Course and Treatment: She was given 1 dose of 20 mg of IV Cardizem. He is still in atrial fibrillation but his rate is now in the 80s. His troponin is indeterminate. INR still slightly subtherapeutic at 1.9. I discussed this with his physician at [facility], Dr. Ramesh. He suggested restarting the oral Cardizem daily. He would like him to still have the Eliquis and Coumadin at home. Patient understands this and has a follow-up appointment on Thursday. Patient's heart rate continued to be in the 80s but still in atrial fibrillation throughout his stay. Treatment Plan: [] Disposition: Discharge Impression: True for ablation with RVR, recent TAVR This note was generated with [employer] dictation software. It may contain incorrect words, spelling, and punctuation that were not noted in review of the chart prior to signing ED Disposition - Plan for ED Patient: Chief Complaint: Palpitations Referrals: Macho Solorio DO [Primary Care Provider] -
[2018-07-16] MEDS: dilTIAZem 25 MG/5 ML Vial 20 MG IV BOLUS (10:41)
[2018-07-16 10:44] LABS: Absolute Lymphocyte Count 1.39 X10^3/ul (0.83-4.51); Absolute Neutrophil Count 6.6 X10^3/uL (2.0-7.7); Basophil# 0.04 X10^3/uL; Basophil% 0.4 % (0-1); Eosinophils% 2.2 % (0-5); Hematocrit 42.8 % (40-54); Hemoglobin 14.3 g/dl (13.0-16.5); Lymphocyte # 1.39 X10^3/ul (4.0); Lymphocyte % 15.1 % (19-41); Mean Corp Hgb Conc 33.4 g/gl (32-36); Mean Corpuscular Volume 98.8 fL (80-94); Mean Platelet Vol. 11.3 fl (6.2-12.0); Monocyte# 1.03 X10^3/uL; Monocyte% 11.2 % (0-10); Neutrophil # 6.55 X10^3/uL (2.7-7.7); Neutrophil % 70.9 % (47-70); POSITIVE COUNT NO; POSITIVE DIFFERENTIAL NO; POSITIVE MORPHOLOGY NO; Platelet Count 148 K/mm3 (150-450); RBC Distribution Width CV 14.3 % (11.6-14.6); RBC Distribution Width SD 50.8 fl (35.1-43.9); Red Blood Count 4.33 M/mm3 (4.6-6.2); White Blood Count 9.2 K/mm3 (4.4-11.0)
[2018-07-16 10:52] LABS: International Normalized Ratio 1.9; Prothrombin Time (Protime)PT. 21.8 SECONDS (11.7-14.9)
[2018-07-16 10:58] LABS: Anion Gap 6 (5-15); BUN 13 mg/dL (7-18); BUN/Creat Ratio 13.8 RATIO (10-20); Calcium,Total 8.7 mg/dL (8.5-10.1); Chloride 97 mmol/L (98-107); Creatinine, Serum 0.94 mg/dL (0.70-1.30); EST Glomerular Filtration Rate 85 mL/min (>60); Est Glom Filt Rate - Afr Amer 103 mL/min (>60); Estimated Creatinine Clearance 77.66 ml/min; Glucose 159 mg/dL (74-106); Potassium 4.4 mmol/L (3.5-5.1); Sodium Level 137 mmol/L (136-145)
[2018-07-16 11:09] VITALS: BP 108/74; PULSE 81; RESP 17; O2SAT 93
--- NOTE | 2018-07-16 11:33 | ED.DEP ---
ED Disposition - Plan for ED Patient: Disposition: Home or Assisted Living Chief Complaint: Palpitations Instructions: ED Afib Referrals: Macho Solorio DO [Primary Care Provider] -
[2018-07-16 11:43] VITALS: BP 108/78; PULSE 87; RESP 22; O2SAT 95
--- OUTSIDE RECORDS SUMMARY | 2018-09-01 03:34 | XMS RPT_ITS ---
:1950 Author Organization OHIP Support Name Relationship Address Phone [employer] Unavailable [address] + [place] [address] MIKHAIL KYLE Unavailable [address] + [place] [address] PATRICK KYLE Unavailable [address] + [place] [address] [employer] Unavailable [address] + [place] [address] MIKHAIL KYLE Unavailable [address] + [place] [address] PATRICK KYLE Unavailable [address] + [place] [address] [employer] Unavailable [address] + [place] [address] ANNE KYLEOMI Unavailable [address] + [place] [address] PATRICK KYLE Unavailable [address] + [place] [address] [employer] Unavailable [address] + [place] [address] MIKHAIL KYLE Unavailable [address] + [place] [address] PATRICK KYLE Unavailable Unavailable + [employer] Unavailable [address] + [place] [address] MIKHAIL KYLE Unavailable [address] + [place] [address] PATRICK KYLE Unavailable Unavailable + [employer] Unavailable [address] + [place] [address] ANNE KYLEOMI Unavailable [address] + [place] [address] SHAH, LUCILA Unavailable [address] + [place] [address] [employer] Unavailable [address] + [place] [address] MIKHAIL KYLE Unavailable [address] + [place] [address] SHAH, LUCILA Unavailable [address] + [place] [address] [employer] Unavailable [address] + [place] [address] Carina KYLE MIKHAIL Unavailable [address] + [place] [address] PATRICK KYLE Unavailable [address] + [place] [address] [employer] Unavailable [address] + [place] [address] Carina KYLE MIKHAIL Unavailable [address] + [place] [address] PATRICK KYLE Unavailable [address] + [place] [address] [employer] Unavailable [address] + [place] [address] ANABELLA S MIKHAIL Unavailable [address] + [place] [address] PATRICK KYLE Unavailable [address] + [place] [address] [employer] Unavailable [address] + [place] [address] ANABELLA, S MIKHAIL Unavailable [address] + [place] [address] ANABELLA PATRICK Unavailable [address] + [place] [address] [employer] Unavailable [address] + [place] [address] ANABELLA, S MIKHAIL Unavailable [address] + [place] [address] ANABELLA PATRICK Unavailable [address] + [place] [address] [employer] Unavailable [address] + [place] [address] ANABELLA, S MIKHAIL Unavailable [address] + [place] [address] ANABELLA, PATRICK Unavailable [address] + [place] [address] U Unavailable Unavailable Unavailable Care Team Providers Name Role Phone MACHO SOLORIO Referring Unavailable MACHO SOLORIO Referring Unavailable SAPNA ARELLANO (PA) Attending Unavailable MACHO SOLORIO Referring Unavailable MACHO SOLORIO Attending Unavailable MACHO SOLORIO Referring Unavailable MACHO SOLORIO Referring Unavailable BARZILAI, BENICO Referring Unavailable BARZILAI, BENICO Referring Unavailable BARZILAI, BENICO Referring Unavailable BARZILAI, BENICO Attending Unavailable ZACH HOWARD Referring Unavailable BARZILAI, BENICO Referring Unavailable BARZILAI, BENICO Referring Unavailable BARZILAI, BENICO Referring Unavailable BARZILAI, BENICO Referring Unavailable BARZILAI, BENICO Referring Unavailable BARZILAI, BENICO Referring Unavailable UNAIJOSUÉ Attending Unavailable VICKIE, BENICO Referring Unavailable SOLORIOMACHO ALANIZ Referring Unavailable MACHO SOLORIO Attending Unavailable MACHO SOLORIO Referring Unavailable MACHO SOLORIO Referring Unavailable CATHIE VIVAR (SUPERVISOR [employer]) Referring Unavailable CATHIE VIVAR (SUPERVISOR [employer]) Referring Unavailable JORGE, VANESSA R Referring Unavailable HUGO COLEMAN Attending Unavailable KRISHNASWAMY, AMAR Referring Unavailable KRISHNASWAMY, AMAR Referring Unavailable HELDCATHIE (SUPERVISOR [employer]) Referring Unavailable KRISHNASWAMY, AMAR Referring Unavailable MADISON GREGORY Attending Unavailable KRISHNASWAMY, AMAR Referring Unavailable KRISHNASWAMY, AMAR Referring Unavailable JORGE, VANESSA R Admitting Unavailable JORGE, VANESSA R Attending Unavailable KRISHNASWAMY, AMAR Referring Unavailable JORGE, VANESSA R Admitting Unavailable JORGE, VANESSA R Attending Unavailable KRISHNASWAMY, AMAR Referring Unavailable JORGE, VANESSA R Referring Unavailable ZORAIDA PEARSON (PLAY WRITER) Attending Unavailable JORGE, VANESSA R Referring Unavailable JORGE, VANESSA R Referring Unavailable Carina WHITLEY (PLAY WRITER) Attending Unavailable JORGE, VANESSA R Referring Unavailable SOLORIO, MACHO L Referring Unavailable SOLORIO, MACHO L Referring Unavailable SOLORIO, MACHO L Referring Unavailable KRISHNASWAMY, AMAR Referring Unavailable KRISHNASWAMY, AMAR Referring Unavailable KRISHNASWAMY, AMAR Referring Unavailable KRISHNASWAMY, AMAR Referring Unavailable SARAH JAMESON (PA) Attending Unavailable KRISHNASWAMY, AMAR Referring Unavailable Solorio, Macho Primary Care Unavailable Leonardo Torres Attending Unavailable Solorio, Macho Attending Unavailable Solorio, Macho Referring Unavailable Solorio, Macho Primary Care Unavailable Michelle Miguel Attending Unavailable Zach Howard Attending Unavailable Solorio, Macho Referring Unavailable Zach Howard Attending Unavailable Zach Howard Referring Unavailable Solorio, Macho Primary Care Unavailable Zach Howard Attending Unavailable Solorio, Macho Referring Unavailable Zach Howard Attending Unavailable Zach Howard Referring Unavailable Solorio, Macho Primary Care Unavailable Zach Howard Attending Unavailable Chilango Love Attending Unavailable Cebul Chilango Referring Unavailable Solorio, Macho Primary Care Unavailable Chilango Love Attending Unavailable Solorio, Macho Referring Unavailable Solorio, Macho Primary Care Unavailable Chilango Love Attending Unavailable Ivan Chilango Referring Unavailable Solorio, Macho Primary Care Unavailable Chilango Love Consulting Unavailable Zach Howard Attending Unavailable Oral Candelaria Attending Unavailable Oral Candelaria Referring Unavailable Solorio, Macho Primary Care Unavailable Rudolph Flores Attending Unavailable Oral Candelaria Referring Unavailable PROBLEMS PROBLEMS DATE TYPE CONDITION / CODE ATTENDING STATUS SOURCE 08/17/2018 Unknown I48.2 - Chronic atrial Zach Howard Active [place] fibrillation / Community I48.2(ICD-10) Hospital Repository 08/17/2018 Unknown E78.5 - Zach Howard Active [place] Hyperlipidemia, Community unspecified / Hospital E78.5(ICD-10) Repository 08/17/2018 Unknown E11.65 - Type 2 Zach Howard Active [place] diabetes mellitus with [facility] hyperglycemia / Hospital E11.65(ICD-10) Repository 08/17/2018 Unknown Z95.2 - Presence of Zach Howard Active [place] prosthetic heart valve [facility] / Z95.2(ICD-10) Hospital Repository 07/30/2018 Unknown 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.01 - terminologist 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, 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 [place] (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) use of Macho [facility] anticoagulants / Hospital Z79.01(ICD-10) Repository 02/02/2017 Active jail (current) NA Active [place] use of anticoagulants [facility] Main / Z79.01(ICD-10) [facility] Repository 11/13/2015 Active Chronic atrial NA Active [place] fibrillation / Clinic Main I48.2(ICD-10) [facility] Repository 07/14/2018 Active Presence of other JORGE, VANESSA Active [place] cardiac implants and R [facility] Main grafts / [place] Z95.818(ICD-10) Repository 07/14/2018 Active Presence of prosthetic JORGE, VANESSA Active [place] heart valve / R Clinic Main Z95.2(ICD-10) [facility] Repository 07/12/2018 Active Nonrheumatic aortic NA Active [place] (valve) stenosis / Clinic Main I35.0(ICD-10) [facility] Repository 04/12/2018 Active Encounter for NA Active [place] examination for normal [facility] Main comparison and control [facility] in clinical research Repository program / Z00.6(ICD-10) 02/10/2018 Active Type 2 diabetes NA Active [place] mellitus with [facility] hyperglycemia / [place] E11.65(ICD-10) Repository 03/16/2018 Unknown N47.1 - Phimosis / Oral Candelaria Active [place] N47.1(ICD-10) [facility] Repository 04/12/2018 Unknown R94.31 - Abnormal [place], Active [place] electrocardiogram [facility] [ECG] [EKG] / Hospital R94.31(ICD-10) Repository 01/14/2018 Unknown I38 - Endocarditis, Zach Howard Active [place] valve unspecified / Community I38(ICD-10) Hospital Repository 12/30/2017 Unknown E66.9 - Obesity, Zach Howard Active [place] unspecified / Community E66.9(ICD-10) Hospital Repository 12/30/2017 Unknown F17.200 - Nicotine Zach Howard Active [place] dependence, Community unspecified, Hospital uncomplicated / Repository F17.200(ICD-10) 12/30/2017 Unknown I35.0 - Nonrheumatic Zach Howard Active [place] aortic (valve) [facility] stenosis / Hospital I35.0(ICD-10) Repository 12/30/2017 Unknown I50.32 - Chronic Zach Howard Active [place] diastolic (congestive) [facility] heart failure / Hospital I50.32(ICD-10) Repository 12/30/2017 Unknown R60.9 - Edema, Zach Howard Active [place] unspecified / Community R60.9(ICD-10) Hospital Repository 12/30/2017 Unknown R06.00 - Dyspnea, Zach Howard Active [place] unspecified / Community R06.00(ICD-10) Hospital Repository 12/30/2017 Unknown R06.01 - Orthopnea / Zach Howard Active [place] R06.01(ICD-10) [facility] Hospital Repository PROCEDURES PROCEDURES No Procedure Records FoundRESULTS RESULTS CARDIOLOGY VISIT Observed: 08/17/2018 Status: F Source: [place] REPORT 11:04 AM [facility] REPOSITORY [facility] [address] [place] [address] OFFICE VISIT Date of Service: 08/17/18 MR#: [id number] Acct: [id number] Name: JAYDE KYLE . Rep #: [id number] : 1950 Provider: Zach Howard MD Age/Sex: 68/M Location: [facility] [place] Status: Signed HPI HPI Chief Complaint: F/u TAVR Details: Details: Mr. Kyle is a very pleasant 68-year-old currently smoking gentleman, [id number] history, diabetic, atrial fibrillation, occasional alcohol, no previous known or diagnosed coronary artery disease or CVA. Patient was diagnosed with atrial fibrillation around 2009 at which time he was placed on Coumadin therapy and his diabetes was discovered as well. In 2012 the patient was diagnosed with esophageal cancer which apparently was nonoperative and underwent x-ray therapy and chemotherapy. His hematology oncologist is Dr. Prabhakar, and according to the patient he has been followed and apparently has had no recurrence. In 2012 he was diagnosed with aortic stenosis and was referred to Dr. Richmond. Apparently he was told that his aortic stenosis was not too bad at that time. His most recent echocardiogram dated 10/01/16 however showed that his ejection fraction was normal at 65%, he had severe left and right atrial enlargement, severe aortic stenosis with an estimated aortic valve area of 0.5 cm with a peak and mean gradient of 57 and 34 mmHg respectively. He had trivial MR and 1+ TR and AI. Over the last several months the patient has had progressively worsening fatigue, shortness of breath, and 2 episodes of positional lightheadedness and dizziness where he almost fainted requiring him to go to the ground at which time his symptoms resolved. He denies any anginal symptoms. In addition he has been intermittently taking his Lasix, only when he has orthopnea or PND. He is consequently developed significant lower extremity edema and is here for evaluation. He does report that he is compliant with his medications. On 12/24/17 the patient underwent repeat echocardiogram which demonstrated the following findings: The estimated ejection fraction is 65 %. The left atrium is severely enlarged. The right atrium is severely enlarged. Mild concentric left ventricular hypertrophy. Mild (1+) eccentric tricuspid valve insufficiency. Right ventricular systolic pressure estimated to be 45 mmHg. Moderate pulmonary hypertension. Severe aortic stenosis. Peak aortic valve gradient 59 mmHg. Mean aortic valve gradient 34 mmHg. Calculated aortic valve area (continuity equation) is 0.59 cm2. Mild (1+) aortic valve insufficiency. On 12/29/17 patient underwent left and right heart catheterization which demonstrated moderate to severe aortic stenosis, nonobstructive coronary artery disease, mild pulmonary hypertension, and was ultimately referred to the [facility] for TAVR procedure on 07/13/18. In addition he underwent watchman closure device in the left atrial appendage and had DC cardioversion. His cardioversion converted into normal sinus rhythm which held for about a day and then reverted back to atrial fibrillation with RVR. He was initially placed on Eliquis followed by Coumadin and is transitioning to Plavix. He remains in atrial fibrillation. He reports that he felt much better in sinus rhythm for that limited period of time. His heart rate at home exceeds 100 on a regular basis. Patient is now here in follow-up for that procedure. On further history the patient feels markedly better after his T AVR procedure, with decreased shortness of breath, increased exercise capacity, and resolution of his lower extremity edema. In our office today's blood pressure is 90/50, pulse is 88 and regular. His physical exam demonstrates 1-2+ carotid upstroke bilaterally, irregularly irregular rhythm, normal S2, a 2/6 high-pitched crescendo decrescendo systolic murmur best heard at the lower left sternal border and radiating to the carotids and clavicles. He has 2+ bilateral lower extremity edema above his knees. Lipids as of 12/24/17 show an LDL of 122 and HDL of 34. Repeat lipids are pending. EKG dated 11/13/16 shows atrial fibrillation with right axis deviation, possible old anterolateral wall myocardial infarction. EKG dated 07/19/18 shows atrial fibrillation with rapid ventricular response, nonspecific ST segment changes. Repeat echocardiogram at the [facility] on 07/14/18 showed an EF of 55%, biatrial enlargement, normal functioning Bennett S3 prosthetic aortic valve, size #26, no aortic insufficiency and a new peak to mean gradient of 9/4 mmHg respectively. 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 Accompanied by: Is patient in pain?: No Allergies No Known Allergies Allergy (Verified 07/16/18 10:22) Medications aspirin 81 mg tablet,delayed release 81 mg PO DAILY 08/06/18 [History Confirmed 08/06/18] furosemide 40 mg tablet 40 mg PO Q OTHER DAY tab 08/06/18 [History Confirmed 08/17/18] metformin 500 mg tablet 500 mg PO BID 08/06/18 [History Confirmed 08/06/18] warfarin 5 mg tablet 5 mg PO .COMPLEX 08/06/18 [History Confirmed 08/06/18] clopidogrel 75 mg tablet 75 mg PO DAILY 08/17/18 [History Confirmed 08/17/18] diltiazem CD 180 mg capsule,extended release 24 hr 180 mg PO DAILY #30 cap 08/17/18 [Rx Confirmed 08/17/18] [facility] Medical History Chronic kidney disease (Chronic) Diabetes mellitus type 2, uncontrolled (Chronic) History of aortic stenosis (Chronic) Diabetic neuropathy associated with type 2 diabetes mellitus (Chronic) Obstructive sleep apnea (Chronic) Patent foramen ovale (Chronic) Chronic atrial fibrillation (Chronic) Chronic diastolic (congestive) heart failure (Chronic) Hyperlipidemia (Chronic) Non-rheumatic aortic stenosis (Chronic) Nicotine dependence (Chronic) Obesity (Chronic) Esophageal cancer (Chronic 2012) Phimosis (Chronic) Surgical History Presence of Watchman left atrial appendage closure device (Chronic 07/13/18) S/P TAVR (transcatheter aortic valve replacement) (Chronic 07/13/18) History of appendectomy (Chronic) History of umbilical hernia repair (Chronic) Family History Mother CVA (cerebral vascular accident) Father CVA (cerebral vascular accident) Sister Diabetes Brother Heart disease Social History Smoking Status: Former smoker ROS Const Const: Positive for other (07/13/2018 had TAVR and Watchman device @ [facility]. 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 work w/furniture); negative for fatigue, weakness, body ache, fever(s), headache(s), chills, frequent falls, night sweats, daytime sleepiness, difficulty sleeping, excessive sweating, weight gain, weight loss, increased appetite, poor appetite or anorexia Eyes Eyes: Negative for blind spots, loss of peripheral vision, transient loss of vision, blurry vision, change in vision, double vision, floaters, tunnel vision or other ENT ENT: Negative for headache(s), dizziness, hearing loss, tinnitus, Nosebleed/epistaxis, balance problems, post nasal drip, lip swelling, tongue swelling, bleeding gums, hoarseness, neck pain, dry mouth or other Cardio Chest Pain: No Palpitations: No Edema: None Muscle aches with walking: None Resp Respiratory: Positive for other (States can walk faster and further than before surgery, also less tired); negative for SOB with activity, SOB at rest, SOB orthopnea\SOB lying down, Cough, Coughing up blood/hemoptysis, chest congestion, pain on inspiration, snoring, stridor, wheezing, crackles or paroxysmal nocturnal dyspnea GI GI: Negative nausea, vomiting, heartburn, constipation, belching, bloating, cramping, vomiting blood/hematemesis, bright, red blood in stools, black,tarry stools, loose stools, Difficulty Swallowing or other : Negative for hematuria, frequent nighttime urination/ nocturia, erectile dysfunction or abnormal vaginal bleeding Musc Musc: Negative for balance problems, muscle aches/ myalgia, muscle weakness or joint pain Skin Skin: Negative redness, non-healing lesions, rash, unusual bruising, skin ulcer, wounds, jaundice or other Neuro Neuro: Negative for weakness, headache(s), frequent falls, blurry vision, double vision, dizziness, lightheadedness, near syncope, syncope, orthostatic symptoms, confusion, memory loss, restless legs, vertigo, seizures, lack of coordination or other Tyson Hematologic/Lymphatic: Negative for easy bleeding, easy bruising, enlarged lymph nodes or other Endo Endo: Negative for fatigue, excessive sweating, cold intolerance, heat intolerance, flushing, increased thirst/drinking, increased hunger, hair loss, hair growth or other Psych Psych: Negative for anxiety, depression, thoughts of harming anyone, thoughts of harming yourself, visual hallucinations, panic attacks or audible hallucinations Allergy Allergy/Immunology: Negative for lip swelling, Negative for tongue swelling, Negative for rash, Negative for throat swelling, Negative for hives Cardiology Exam Const Appearance: cooperative, healthy appearing and no acute distress Nutritional Appearance: well nourished Orientation: alert, oriented x3 and oriented to person Head Head: normal to inspection, atraumatic and normocephalic Nose: external nose normal Face and Sinus: face symmetric Mouth: oral mucosae normal Eyes General: appearance normal, both eyes and all related structures Eyelids: eyelids normal Conjunctivae: conjunctivae normal Pupils: PERRL and normal by confrontation EOM: EOM intact bilaterally Neck Neck: normal visual inspection and full ROM Carotids: normal carotid upstroke Chest Chest inspection: normal inspection of the chest Auscultation: Bilateral: Clear to Auscultation Cardio Palpation: normal PMI Rate: regular rate Rhythm: regular rhythm Heart sounds: S1 normal and S2 normal GI GI: normal to inspection, no hepatosplenomegaly and bowel sounds present Neuro General: alert, oriented x3, awake, CN's II-XI intact bilaterally and moves all extremities Skin Skin: no rashes or lesions noted Extremities Pulses: Normal: Right Femoral Pulse, Left Femoral Pulse, Right Dorsalis Pedis Pulse, Left Dorsalis Pedis Pulse, Right Posterior Tibial Pulse, Left Posterior Tibial Pulse, Right Radial Pulse, Left Radial Pulse Lower Extremity Edema: None: Bilateral Psych Psychological: normal affect Assessment AND Plan 1. 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 Vanessa Patel, Dr. Santo Dobbins @ [facility] Plan 1. Status post T AVR: The patient has an SBE prophylaxis card, and feels markedly improved since his aortic valve replacement. Unfortunately he is reverted back to atrial fibrillation after DC cardioversion at in clinic. He is transitioning off of his Coumadin and into Plavix. He is status post watchman closure device of the left atrial appendage. At this point I would recommend serial echocardiograms on a yearly basis. He has an active SBE prophylaxis card. No additional procedures required at this time. Would recommend considering cardiac rehab once his heart rate is well controlled. 2. Chronic atrial fibrillation I48.2 Plan 2. Chronic atrial fibrillation: The patient had atrial fibrillation for many years prior to his T AVR. He did have a DC cardioversion, but unfortunately reverted back to atrial fibrillation with RVR. It appears at home that his heart rate is exceeding 100 on a regular basis. Recommend increasing his Cardizem to 180 mg p.o. daily. I believe that we are past the window of bradycardia as a result of his T AVR, we will watch for this with a repeat blood pressure check in 2 weeks time. I gave the patient the option of starting amiodarone and continuing Coumadin in anticipation for repeat DC cardioversion as it appears he feels much better when he is in normal sinus rhythm. The patient declines amiodarone at this time. 3. Hyperlipidemia E78.5 Plan 3. Hyperlipidemia: Patient has been on previous statins in the past and although his allergies show no allergies it appears he gets significant myalgias with statins. Patient declined statins or gemfibrozil at this time. He wishes to proceed with dietary management. We will repeat his lipid profile in 6 weeks time. If his LDL is greater than 100 at that time and in light of his diabetes and known nonobstructive coronary disease, we will consider gemfibrozil 600 mg p.o. twice daily with a subsequent repeat lipid profile 6 weeks after that. 4. Return office in 6 months. This note was generated using a voice recognition system and there may be incorrect words, spelling or punctuation that were not noted when reviewing the office note prior to saving. Orders Orders: Plan Detail Other Orders Orders: Other Medications New: Changed: To: warfarin 5 mg PO along with Eliquis until INR>2.0: Dr. Macho Solorio managing INR 's , [facility] Directing Coumadin d/t Watchman Device; Discontinued: Follow Up +6M (Howard) +2 weeks (BP CHECK) Coding Level of Care Code Off vis,est,level 3 Diagnoses S/P TAVR (transcatheter aortic valve replacement) Z95.2 Chronic atrial fibrillation I48.2 Hyperlipidemia E78.5 Coding Level of Care Code Off vis,est,level 3 Diagnoses S/P TAVR (transcatheter aortic valve replacement) Z95.2 Chronic atrial fibrillation I48.2 Hyperlipidemia E78.5 Supplemental Info Supplemental Information Labs LDL Cholesterol 122 mg/dL (0-130) 12/24/17 HDL Cholesterol 34 mg/dL (40-) L 12/24/17 Triglycerides 63 mg/dL (-199) 12/24/17 VLDL Cholesterol 13 mg/dL (5-40) 12/24/17 Diagnostics Electrocardiogram 07/16/18 Echocardiogram 12/24/17 Cardiac Catheterization 12/29/17 Chest X-Ray 12/22/17 08/17/18 1104 <Electronically signed by Zach Howard MD> Date Zach Howard MD Cosigner Signature: Date (if applicable) CC: Macho Faria DO PROGRESS Observed: 08/13/2018 Status: COMPLETED Source: [place] 12:56 PM [facility] [place] REPOSITORY HNO ID: [id number] Author: Ngozi (Rn) MYRIAM Jean Service: (none) Author Type: Registered Nurse Type: Progress Notes Filed: 08/13/2018 1:22 PM Note Text: Follow up Visit (45 day, 6 months, 1year) IRB #[id number] WATCH ? TAVR (WATCHMAN for Patients with Atrial Fibrillation Undergoing Transcatheter Aortic Valve Replacement) PI: Dr. Mj Blair I met with the patient for the follow up 45 day visit of the WATCH - TAVR study Reaffirmed that the patient still wishes to participate in the study and continues to consent to the study. Has the patient had any changes in his health since the last study visit? No Medications and allergy lists updated and current. Has the patient had any outside hospitalizations/ER visits: Yes Dates and locations: ED visit at [facility] 07/2018 for a-fib RVR NIHSS: 1a: Mental Status - LOC 0 = Alert and Attentive 1b. LOC Questions 0 = Correct age and month 1c LOC-Commands 0 = Both 2. Gaze 0 = Normal 3. Visual Capps 0 = Full 4. Facial Weakness 0 = Normal 5a. Left Arm 0 = No drift (10 sec) 5b. Right Arm 0 = No drift (10 sec) 6a.. Left Leg 0 = No drift 6b. Right Leg 0 = No drift 7. Ataxia 0 = Absent 8. Sensory 0 = Normal 9. Aphasia 0 = None 10. Dysarthria 0 = Absent 11. Neglect 0 = None NIHSS total = 0 Modified [place] Scale: yes: 0 = No symptoms [id number] QOL completed: Yes Thanked patient for participation in the trial and reminded them of their next follow visit at 6 month Discussed with the patient the importance of follow up in the study. he verbalized understanding. Patient contact information reaffirmed and updated. Updated coordinator contact information was given to the patient. Education provided:Follow up requirements/schedule Materials dispensed:contact card and follow-up schedule Ngozi Jean RN Pager # [phone] PROGRESS Observed: 08/13/2018 Status: COMPLETED Source: [place] 12:00 PM [facility] REPOSITORY HNO ID: [id number] Author: Sarah Shaw) Elenita Service: (none) Author Type: Physician Digital Intern Type: Progress Notes Filed: 08/16/2018 9:04 AM Note Text: [facility] [place] [facility] Department of Cardiovascular Medicine SECTION OF INTERVENTIONAL CARDIOLOGY OUTPATIENT VISIT DATE August 13, 2018 OUTPATIENT VISIT TYPE ESTABLISHED PRIMARY CARE PHYSICIAN: Macho Solorio DO [address] [place] [address] CHIEF COMPLAINT: Patient presents with: Valvular Heart Disease HISTORY OF PRESENT ILLNESS: Mr. Kyle is a 68 year old male with a history of tobacco use (100pack year), HTN, HLD, CHF, DM, AF (on AC and BB) and severe aortic stenosis, who presents today for follow-up visit status post successful Transcatheter AVR with 29mm Krista S3 valve, R FACILITY WORKER access and Watchman Device Placement on 07/13/18 Prior to TAVR, He reports having BRUCE and fatigue as his main issues. He does have occasional leg swelling and uses compression stockings. Denies having chest pain, orthopnea, palpitations and lightheadedness. He denies having ED visits or hospitalizations. Echo 04/08/18: CONCLUSIONS: - Technically difficult exam due to body habitus. - Exam indication: Routine surveillance of moderate or severe valvular stenosis (>1yr) - The left ventricle is normal in size. Left ventricular systolic function is normal. EF = 55 ? 5% (2D biplane) Definity contrast used for endocardial border detection. Left ventricular diastolic function was not evaluated due to AF. - The right ventricle is normal in size. Right ventricular systolic function is normal. - The left atrial cavity is severely dilated. - The right atrial cavity is severely dilated. - There is moderate (2+) holosystolic mitral valve regurgitation. Regurgitant orifice area (PISA) is 0.24 cm?. - Tricuspid aortic valve. There is low flow, low gradient, moderately severe aortic valve stenosis caused by calcified valve. AV area is 0.50 cm? (0.23 cm?/m?) ?by continuity, VTI. The peak gradient is 45 mmHg, the mean gradient is 27 mmHg and the dimensionless valve index is 0.18. Av gradient averaged today d/t AF rhythm. Prior pk/mn gradients 57/34mmHg - A PFO is noted by color on prior echo as well as clips 103, 122-124 - Exam was compared with the prior CC echocardiographic exam performed on 09/30/2016. There is no significant change. On 07/13/18, he underwent ssuccessful Transcatheter AVR with 29mm Krista S3 valve, R FACILITY WORKER access and Watchman Device Placement Post TAVR Echo CONCLUSIONS: - Technically difficult exam due to suboptimal positioning and body habitus. - Exam indication: s/p TAVR and Watchman - The left ventricle is normal in size. There is mild concentric left ventricular hypertrophy. Left ventricular systolic function is normal. EF = 55 ? 5% (visual est.) Grade II left ventricular diastolic dysfunction. - The right ventricle is normal in size. Right ventricular systolic function is normal. - The left atrial cavity is dilated. - The right atrial cavity is dilated. - S/P transcatheter aortic valve replacement. Bennett S3 prosthetic aortic valve (size #26). There is no aortic valve regurgitation. The peak gradient is 9 mmHg, the mean gradient is 4 mmHg and the dimensionless valve index is 0.70. - There is a patent foramen ovale as detected by Doppler. -Technically difficult study secondary to body habitus with multiple off-axis images. -Limited ECHO post TAVR He was seen for follow up on 07/19/18, per office note: He presents for hospital discharge follow up visit today. He has a past medical history of aortic stenosis now s/p TAVR (07/13/18), atrial fibrillation, CHF, HTN, HLD, and tobacco use (100 pack year). He was admitted for planned TAVR and watchman device. ? Since discharge, Mr Kyle had an episode of Afib RVR where he went to [facility] ED. He was restarted on diltiazem 120 mg daily with a reduction in HR to 80's-90's. He is following up today post discharge. Today, Mr Kyle states that he has been feeling well. He does endorse an area of tenderness at his right groin site that he is concerned about it. ? Denies chest pain, shortness of breath, palpitations, lightheadedness, syncope, leg swelling, cough and wheezing Your plan for anticoagulation: 1. Aspirin 81 mg daily 2. Apixaban 5 mg BID as a bridge until his INR is 2.0 or greater, then stop apixaban. 3. Coumadin to a goal INR of 2-3 for at least 45 days. If good seal on follow up ELIO, can stop coumadin at that time and then start clopidogrel 75 mg daily. ? Today, he presents doing well. 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 He is walking a lot and feels good. He and his family noticed a big difference in how he feels and more energy he has post TAVR. He has had intermittently elevated HR which patient will follow with local Chronometer Adjuster. He is currently taking Lasix 40 mg every other day, weight has remained stable. He stated the peal edema significantly improved He has a cough with some wheezing but has allergies and recent sanding of furniture at shop has bothered him. He denies chest pain, shortness of breath, dyspnea on exertion, orthopnea, PND, palpitations, lightheadedness, syncope and claudication. 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 Zach Howard - COLONOSCOPY 12/30/2016 - EGD BIOPSY SING OR MULT 01/22/2018 - EGD W/ BIOPSY SNGL/MLTPL 12/20/2016 - EGD W/O OR W/BRUSH/WASH 12/2012 EGD - EGD W/O OR W/BRUSH/WASH 04/14/2013 EGD - EGD W/O OR W/BRUSH/WASH 07/19/13 EGD - EGD W/O OR W/BRUSH/WASH 01/22/2018 antral biopsy, GE junction biopsy - HERNIA REPAIR HX umbilical SOCIAL HISTORY Social History Substance Use Topics - Smoking status: Current Some Day Smoker Packs/day: 2.00 Years: 50.00 Types: Cigarettes, Pipe, Cigars - Smokeless tobacco: Never Used Comment: attempting to quit - Alcohol use No FAMILY HISTORY Problem Relation Age of Onset - Stroke Mother - Stroke Father - other (tia) Father - Heart Brother - Diabetes Sister - Cancer Sister lymphoma x 2 - other (pneumonia) Maternal Grandmother - Stroke Maternal Grandfather - Cancer Paternal Grandfather - Stroke Paternal Grandmother ALLERGIES: ALLERGIES Allergen Reactions - Seasonal Allergies GI Upset headache MEDICATIONS: diltiazem CD (CARDIZEM CD) 120 mg 24 hr capsule Take 120 mg by mouth once daily. furosemide (LASIX) 40 mg tablet Take 1 tablet by mouth every 48 hours. aspirin, enteric coated (ECOTRIN LOW STRENGTH) 81 mg EC tablet Take 1 tablet by mouth once daily. warfarin (COUMADIN) 5 mg tablet Takes 5 mg tablet along with Warfarin 1 mg daily Thu-Thu-Thu warfarin (COUMADIN) 1 mg tablet TAKE 1 TABLET THU, THU, THU metFORMIN ER (GLUCOPHAGE XR) 500 mg 24 hr tablet Take 1 tablet by mouth twice daily before meals. GENERIC OKAY REVIEW OF SYSTEMS: HEENT: Denies recent severe headaches, visual changes, difficulty swallowing. GASTROINTESTINAL: Denies melena, hematochezia, heartburn. GENITOURINARY: Denies hematuria. MUSCULOSKELETAL: Denies claudication or muscle myalgias. NEUROLOGIC: Denies unilateral paralysis, slurred speech. SKIN: Denies skin ulcers or lesions. HEMATOLOGICAL: Denies gingival bleeding, or prolonged epistaxis. ENDOCRINE:Denies heat or cold intolerance, excessive thirst or urination. All Other Remaining ROS negative. PHYSICAL EXAMINATION: BP 108/67 Pulse 64 Ht 5' 10.5 (1.79m) Wt 206 lb (93.4kg) BMI 29.13 kg/(m2). General:obese Skin:warm and dry Neck:no JVD, no carotid bruits, thyroid not palpable, no tenderness Lungs:clear to auscultation and no rales Heart:regular rhythm, S1, S2 normal, no S3, no S4, grade 1/6 systolic murmur across the base and along left sternal border, no heaves and no thrills Abdomen:soft, round, non-tender, bowel sounds present Extremities:normal exam Edema Scale:non-pitting Musculoskeletal:in wheelchair Neurologic:Oriented to time, place and person, Mood AND Affect: appropriate CARDIOVASCULAR MEDICINE TESTING: Electrocardiogram: Diagnosis:ATRIAL FIBRILLATION Laboratory Testing: Component Latest Ref Rng AND Units 08/13/2018 Glucose 74 - 99 mg/dL 134 (H) BUN 9 - 24 mg/dL 24 Creatinine 0.73 - 1.22 mg/dL 0.95 Sodium 136 - 144 mmol/L 139 Potassium 3.7 - 5.1 mmol/L 4.8 Chloride 97 - 105 mmol/L 97 CO2 22 - 30 mmol/L 31 (H) Anion Gap 9 - 18 mmol/L 11 Calcium 8.5 - 10.2 mg/dL 9.9 eGFR- >60 eGFR-All Other Races . >60 WBC 3.70 - 11.00 k/uL 7.77 RBC 4.20 - 6.00 m/uL 4.66 Hemoglobin 13.0 - 17.0 g/dL 14.9 Hematocrit 39.0 - 51.0 % 45.2 MCV 80.0 - 100.0 fL 97.0 MCH 26.0 - 34.0 pG 32.0 MCHC 30.5 - 36.0 g/dL 33.0 RDW-CV 11.5 - 15.0 % 14.2 Platelet Count 150 - 400 k/uL 157 MPV 9.0 - 12.7 fL 12.5 Absolute nRBC <0.01 k/uL <0.01 PT Sec 9.7 - 13.0 sec 19.0 (H) PT INR 0.9 - 1.3 1.9 (H) ELIO: CONCLUSIONS: - Exam indication: AF - DCCV not planned - The left ventricle is normal in size. Left ventricular systolic function is normal. EF = 55 ? 5% (visual est.) - The right ventricle is normal in size. Right ventricular systolic function is low normal. - The left atrial cavity is severely dilated. Watchman left atrial apendage occluder device appears well-seated. Trace amount of mary- device flow noted laterally [1mm wide jet] (image [id number]). No evidence of left atrial thrombus. Spontaneous echocontrast noted in the left atrium. - The right atrial cavity is dilated. - The visualized aorta is borderline dilated with a maximal dimension of 3.9 cm. - S/P transcatheter aortic valve replacement. Bennett S3 prosthetic aortic valve (size #26). There is trace (trace - 1+) paravalvular aortic valve regurgitation posteriorly. - There is no patent foramen ovale as detected by Doppler, agitated saline contrast and saline contrast with valsalva. -Technically difficult study. -Septostomy site noted in the interatrial septum, with residual left to right flow. No evidence of right to left shunting on agitated saline contrast study. -Moderate atherosclerotic changes of the thoracic aorta. - Exam was compared with the prior CC echocardiographic exam performed on 07/14/2018, Watchman well visualized and well seated with trivial mary-device flow. I have personally reviewed the Electrocardiogram, Laboratory Testing and ELIO. IMPRESSION: Mr. Kyle is a 68 year old male with a history of tobacco use (100pack year), HTN, HLD, CHF, DM, AF (on AC and BB) and severe aortic stenosis, who presents today for follow-up visit status post successful Transcatheter AVR with 29mm Krista S3 valve, R FACILITY WORKER access and Watchman Device Placement on 07/13/18. (I35.0) Severe aortic stenosis (primary encounter diagnosis) (I50.32) Chronic diastolic HF (heart failure) ([facility]) (Z95.2) S/P TAVR (transcatheter aortic valve replacement) - Echo 04/20: EF = 55 ? 5% Tricuspid aortic valve. There is low flow, low gradient, moderately severe aortic valve stenosis caused by calcified valve. AV area is 0.50 cm? (0.23 cm?/m?) ?by continuity, VTI. The peak gradient is 45 mmHg, the mean gradient is 27 mmHg and the dimensionless valve index is 0.18. Av gradient averaged today d/t AF rhythm. Prior pk/mn gradients 57/34mmHg - Status post successful Transcatheter AVR with 29mm Krista S3 valve 07/13/18. - Post TAVR Echo EF = 55 ? 5% S/P transcatheter aortic valve replacement. Bennett S3 prosthetic aortic valve (size #26). There is no aortic valve regurgitation. The peak gradient is 9 mmHg, the mean gradient is 4 mmHg and the dimensionless valve index is 0.70. - Stable - Continue aspirin, Lasix, - Follow up in 6 months, will be arranged by research (I48.2) Chronic atrial fibrillation ([facility]) (Z95.818) Presence of Watchman left atrial appendage closure device - History of Also chronic afib since 2009 on AC with warfarin. - [id number] Score of 4 and is recommended for anticoagulation therapy.? - Unable to take lobsterman oral anticoagulation for the following reasons: h/o gastroesophageal cancer with prior bleeding - Status post Watchman Device Placement on 07/13/18. - ELIO today; Well seated Watchman, per Staff Chronometer Adjuster ELIO review, able to stop Coumadin, start Plavix - Rx provided for Plavix - Continue aspirin, Plavix, Cardizem - Follow up in 6 months, will be arranged by research (I10) Essential hypertension - BP stable - Continue Lasix (E78.5) Dyslipidemia - Not currently taking statin I spent > 35 minutes in the visit, with more than 50% of the total [id number] time of the visit in counseling / coordination of care. Sarah Jameson PA-C CNOV Observed: 08/13/2018 Status: COMPLETED Source: [place] 12:00 PM [facility] REPOSITORY Office Visit (CATHMN) JAYDE KYLE ([id number]) 1950 M Date Time Provider Department 08/13/18 12:00 PM SARAH JAMESON) CATHMN During your visit today, we recorded the following information about you: Pulse Blood pressure Weight Height 64/minute 108/67 93.4 kg 1.791 m Sarah Jameson PA-C 08/16/2018 9:04 AM Signed [facility] [place] [facility] Department of Cardiovascular Medicine SECTION OF INTERVENTIONAL CARDIOLOGY OUTPATIENT VISIT DATE August 13, 2018 OUTPATIENT VISIT TYPE ESTABLISHED PRIMARY CARE PHYSICIAN: Macho Solorio DO [address] [place] [address] CHIEF COMPLAINT: Patient presents with: Valvular Heart Disease HISTORY OF PRESENT ILLNESS: Mr. Kyle is a 68 year old male with a history of tobacco use (100pack year), HTN, HLD, CHF, DM, AF (on AC and BB) and severe aortic stenosis, who presents today for follow-up visit status post successful Transcatheter AVR with 29mm Krista S3 valve, R FACILITY WORKER access and Watchman Device Placement on 07/13/18 Prior to TAVR, He reports having BRUCE and fatigue as his main issues. He does have occasional leg swelling and uses compression stockings. Denies having chest pain, orthopnea, palpitations and lightheadedness. He denies having ED visits or hospitalizations. Echo 04/08/18: CONCLUSIONS: - Technically difficult exam due to body habitus. - Exam indication: Routine surveillance of moderate or severe valvular stenosis (>1yr) - The left ventricle is normal in size. Left ventricular systolic function is normal. EF = 55 ? 5% (2D biplane) Definity contrast used for endocardial border detection. Left ventricular diastolic function was not evaluated due to AF. - The right ventricle is normal in size. Right ventricular systolic function is normal. - The left atrial cavity is severely dilated. - The right atrial cavity is severely dilated. - There is moderate (2+) holosystolic mitral valve regurgitation. Regurgitant orifice area (PISA) is 0.24 cm?. - Tricuspid aortic valve. There is low flow, low gradient, moderately severe aortic valve stenosis caused by calcified valve. AV area is 0.50 cm? (0.23 cm?/m?) ?by continuity, VTI. The peak gradient is 45 mmHg, the mean gradient is 27 mmHg and the dimensionless valve index is 0.18. Av gradient averaged today d/t AF rhythm. Prior pk/mn gradients 57/34mmHg - A PFO is noted by color on prior echo as well as clips 103, 122-124 - Exam was compared with the prior CC echocardiographic exam performed on 09/30/2016. There is no significant change. On 07/13/18, he underwent ssuccessful Transcatheter AVR with 29mm Krista S3 valve, R FACILITY WORKER access and Watchman Device Placement Post TAVR Echo CONCLUSIONS: - Technically difficult exam due to suboptimal positioning and body habitus. - Exam indication: s/p TAVR and Watchman - The left ventricle is normal in size. There is mild concentric left ventricular hypertrophy. Left ventricular systolic function is normal. EF = 55 ? 5% (visual est.) Grade II left ventricular diastolic dysfunction. - The right ventricle is normal in size. Right ventricular systolic function is normal. - The left atrial cavity is dilated. - The right atrial cavity is dilated. - S/P transcatheter aortic valve replacement. Bennett S3 prosthetic aortic valve (size #26). There is no aortic valve regurgitation. The peak gradient is 9 mmHg, the mean gradient is 4 mmHg and the dimensionless valve index is 0.70. - There is a patent foramen ovale as detected by Doppler. -Technically difficult study secondary to body habitus with multiple off-axis images. -Limited ECHO post TAVR He was seen for follow up on 07/19/18, per office note: He presents for hospital discharge follow up visit today. He has a past medical history of aortic stenosis now s/p TAVR (07/13/18), atrial fibrillation, CHF, HTN, HLD, and tobacco use (100 pack year). He was admitted for planned TAVR and watchman device. ? Since discharge, Mr Kyle had an episode of Afib RVR where he went to [facility] ED. He was restarted on diltiazem 120 mg daily with a reduction in HR to 80's-90's. He is following up today post discharge. Today, Mr Kyle states that he has been feeling well. He does endorse an area of tenderness at his right groin site that he is concerned about it. ? Denies chest pain, shortness of breath, palpitations, lightheadedness, syncope, leg swelling, cough and wheezing Your plan for anticoagulation: 1. Aspirin 81 mg daily 2. Apixaban 5 mg BID as a bridge until his INR is 2.0 or greater, then stop apixaban. 3. Coumadin to a goal INR of 2-3 for at least 45 days. If good seal on follow up ELIO, can stop coumadin at that time and then start clopidogrel 75 mg daily. ? Today, he presents doing well. 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 He is walking a lot and feels good. He and his family noticed a big difference in how he feels and more energy he has post TAVR. He has had intermittently elevated HR which patient will follow with local Chronometer Adjuster. He is currently taking Lasix 40 mg every other day, weight has remained stable. He stated the peal edema significantly improved He has a cough with some wheezing but has allergies and recent sanding of furniture at shop has bothered him. He denies chest pain, shortness of breath, dyspnea on exertion, orthopnea, PND, palpitations, lightheadedness, syncope and claudication. 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 Zach Howard - COLONOSCOPY 12/30/2016 - EGD BIOPSY SING OR MULT 01/22/2018 - EGD W/ BIOPSY SNGL/MLTPL 12/20/2016 - EGD W/O OR W/BRUSH/WASH 12/2012 EGD - EGD W/O OR W/BRUSH/WASH 04/14/2013 EGD - EGD W/O OR W/BRUSH/WASH 07/19/13 EGD - EGD W/O OR W/BRUSH/WASH 01/22/2018 antral biopsy, GE junction biopsy - HERNIA REPAIR HX umbilical SOCIAL HISTORY Social History Substance Use Topics - Smoking status: Current Some Day Smoker Packs/day: 2.00 Years: 50.00 Types: Cigarettes, Pipe, Cigars - Smokeless tobacco: Never Used Comment: attempting to quit - Alcohol use No FAMILY HISTORY Problem Relation Age of Onset - Stroke Mother - Stroke Father - other (tia) Father - Heart Brother - Diabetes Sister - Cancer Sister lymphoma x 2 - other (pneumonia) Maternal Grandmother - Stroke Maternal Grandfather - Cancer Paternal Grandfather - Stroke Paternal Grandmother ALLERGIES: ALLERGIES Allergen Reactions - Seasonal Allergies GI Upset headache MEDICATIONS: diltiazem CD (CARDIZEM CD) 120 mg 24 hr capsule Take 120 mg by mouth once daily. furosemide (LASIX) 40 mg tablet Take 1 tablet by mouth every 48 hours. aspirin, enteric coated (ECOTRIN LOW STRENGTH) 81 mg EC tablet Take 1 tablet by mouth once daily. warfarin (COUMADIN) 5 mg tablet Takes 5 mg tablet along with Warfarin 1 mg daily Thu-Thu-Thu warfarin (COUMADIN) 1 mg tablet TAKE 1 TABLET THU, THU, THU metFORMIN ER (GLUCOPHAGE XR) 500 mg 24 hr tablet Take 1 tablet by mouth twice daily before meals. GENERIC OKAY REVIEW OF SYSTEMS: HEENT: Denies recent severe headaches, visual changes, difficulty swallowing. GASTROINTESTINAL: Denies melena, hematochezia, heartburn. GENITOURINARY: Denies hematuria. MUSCULOSKELETAL: Denies claudication or muscle myalgias. NEUROLOGIC: Denies unilateral paralysis, slurred speech. SKIN: Denies skin ulcers or lesions. HEMATOLOGICAL: Denies gingival bleeding, or prolonged epistaxis. ENDOCRINE:Denies heat or cold intolerance, excessive thirst or urination. All Other Remaining ROS negative. PHYSICAL EXAMINATION: BP 108/67 Pulse 64 Ht 5' 10.5 (1.79m) Wt 206 lb (93.4kg) BMI 29.13 kg/(m2). General:obese Skin:warm and dry Neck:no JVD, no carotid bruits, thyroid not palpable, no tenderness Lungs:clear to auscultation and no rales Heart:regular rhythm, S1, S2 normal, no S3, no S4, grade 1/6 systolic murmur across the base and along left sternal border, no heaves and no thrills Abdomen:soft, round, non-tender, bowel sounds present Extremities:normal exam Edema Scale:non-pitting Musculoskeletal:in wheelchair Neurologic:Oriented to time, place and person, Mood AND Affect: appropriate CARDIOVASCULAR MEDICINE TESTING: Electrocardiogram: Diagnosis:ATRIAL FIBRILLATION Laboratory Testing: Component Latest Ref Rng AND Units 08/13/2018 Glucose 74 - 99 mg/dL 134 (H) BUN 9 - 24 mg/dL 24 Creatinine 0.73 - 1.22 mg/dL 0.95 Sodium 136 - 144 mmol/L 139 Potassium 3.7 - 5.1 mmol/L 4.8 Chloride 97 - 105 mmol/L 97 CO2 22 - 30 mmol/L 31 (H) Anion Gap 9 - 18 mmol/L 11 Calcium 8.5 - 10.2 mg/dL 9.9 eGFR- >60 eGFR-All Other Races . >60 WBC 3.70 - 11.00 k/uL 7.77 RBC 4.20 - 6.00 m/uL 4.66 Hemoglobin 13.0 - 17.0 g/dL 14.9 Hematocrit 39.0 - 51.0 % 45.2 MCV 80.0 - 100.0 fL 97.0 MCH 26.0 - 34.0 pG 32.0 MCHC 30.5 - 36.0 g/dL 33.0 RDW-CV 11.5 - 15.0 % 14.2 Platelet Count 150 - 400 k/uL 157 MPV 9.0 - 12.7 fL 12.5 Absolute nRBC <0.01 k/uL <0.01 PT Sec 9.7 - 13.0 sec 19.0 (H) PT INR 0.9 - 1.3 1.9 (H) ELIO: CONCLUSIONS: - Exam indication: AF - DCCV not planned - The left ventricle is normal in size. Left ventricular systolic function is normal. EF = 55 ? 5% (visual est.) - The right ventricle is normal in size. Right ventricular systolic function is low normal. - The left atrial cavity is severely dilated. Watchman left atrial apendage occluder device appears well-seated. Trace amount of mary- device flow noted laterally [1mm wide jet] (image [id number]). No evidence of left atrial thrombus. Spontaneous echocontrast noted in the left atrium. - The right atrial cavity is dilated. - The visualized aorta is borderline dilated with a maximal dimension of 3.9 cm. - S/P transcatheter aortic valve replacement. Bennett S3 prosthetic aortic valve (size #26). There is trace (trace - 1+) paravalvular aortic valve regurgitation posteriorly. - There is no patent foramen ovale as detected by Doppler, agitated saline contrast and saline contrast with valsalva. -Technically difficult study. -Septostomy site noted in the interatrial septum, with residual left to right flow. No evidence of right to left shunting on agitated saline contrast study. -Moderate atherosclerotic changes of the thoracic aorta. - Exam was compared with the prior echocardiographic exam performed on 07/14/2018, Watchman well visualized and well seated with trivial mary-device flow. I have personally reviewed the Electrocardiogram, Laboratory Testing and ELIO. IMPRESSION: Mr. Kyle is a 68 year old male with a history of tobacco use (100pack year), HTN, HLD, CHF, DM, AF (on AC and BB) and severe aortic stenosis, who presents today for follow-up visit status post successful Transcatheter AVR with 29mm Krista S3 valve, R FACILITY WORKER access and Watchman Device Placement on 07/13/18. (I35.0) Severe aortic stenosis (primary encounter diagnosis) (I50.32) Chronic diastolic HF (heart failure) ([facility]) (Z95.2) S/P TAVR (transcatheter aortic valve replacement) - Echo 04/20: EF = 55 ? 5% Tricuspid aortic valve. There is low flow, low gradient, moderately severe aortic valve stenosis caused by calcified valve. AV area is 0.50 cm? (0.23 cm?/m?) ?by continuity, VTI. The peak gradient is 45 mmHg, the mean gradient is 27 mmHg and the dimensionless valve index is 0.18. Av gradient averaged today d/t AF rhythm. Prior pk/mn gradients 57/34mmHg - Status post successful Transcatheter AVR with 29mm Krista S3 valve 07/13/18. - Post TAVR Echo EF = 55 ? 5% S/P transcatheter aortic valve replacement. Bennett S3 prosthetic aortic valve (size #26). There is no aortic valve regurgitation. The peak gradient is 9 mmHg, the mean gradient is 4 mmHg and the dimensionless valve index is 0.70. - Stable - Continue aspirin, Lasix, - Follow up in 6 months, will be arranged by research (I48.2) Chronic atrial fibrillation ([facility]) (Z95.818) Presence of Watchman left atrial appendage closure device - History of Also chronic afib since 2009 on AC with warfarin. - [id number] Score of 4 and is recommended for anticoagulation therapy.? - Unable to take jail oral anticoagulation for the following reasons: h/o gastroesophageal cancer with prior bleeding - Status post Watchman Device Placement on 07/13/18. - ELIO today; Well seated Watchman, per Staff Chronometer Adjuster ELIO review, able to stop Coumadin, start Plavix - Rx provided for Plavix - Continue aspirin, Plavix, Cardizem - Follow up in 6 months, will be arranged by research (I10) Essential hypertension - BP stable - Continue Lasix (E78.5) Dyslipidemia - Not currently taking statin I spent > 35 minutes in the visit, with more than 50% of the total qarb-di-ngvi time of the visit in counseling / coordination of care. Sarah Jameson PA-C Referring Provider: MJ BLAIR [[id number]] Allergies As of Date: 08/13/2018 Noted Allergy Reaction SEASONAL ALLERGIES 10/04/2012 8 - GI Upset Comments: headache Date Reviewed: 08/13/2018 Reviewed by: Sarah Jameson (Pa) - Fully Assessed Reason for Visit: Valvular Heart Disease [169] Primary Visit Diagnosis:Severe aortic stenosis [I35.0] Other Visit Diagnoses:S/P TAVR (transcatheter aortic valve replacement) [Z95.2] Presence of Watchman left atrial appendage closure device [Z95.818] Chronic atrial fibrillation (HCC) [I48.2] Chronic diastolic HF (heart failure) ([facility]) [I50.32] Essential hypertension [I10] Dyslipidemia [E78.5] Order(s):clopidogrel (PLAVIX) 75 mg tabletTake 1 tablet by mouth once daily.Disp: 30 tabletRfl: 11 Prescriptions as of 08/13/2018 Sig: DILTIAZEM SR 120 MG 24 HR CAP Take 120 mg by mouth once robe* FUROSEMIDE 40 MG TABLET Take 1 tablet by mouth every * ASPIRIN 81 MG TABLET,DELAYED * Take 1 tablet by mouth once d* WARFARIN 5 MG TABLET Takes 5 mg tablet along with * WARFARIN 1 MG TABLET TAKE 1 TABLET MON, WED, FRI METFORMIN ER 500 MG TABLET,EX* Take 1 tablet by mouth twice * CLOPIDOGREL 75 MG TABLET Take 1 tablet by mouth once d* Problem List As Of Date 08/13/2018 Noted Resolved 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 Diabetes mellitus type 2 in nonobese (HCC) [E11*INVALID FOR*07/12/2018 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*INVALID FOR*07/06/2014 CHF (congestive heart failure) (HCC) [I50.9] INVALID FOR*07/12/2018 Aortic stenosis [I35.0] INVALID FOR* More... 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 Coronary artery disease involving capitan grande band escobar*INVALID FOR* More... S/P TAVR (transcatheter aortic valve replacemen*INVALID FOR* More... Presence of Watchman left atrial appendage clos*INVALID FOR* More... Prescriptions ordered this encounter Disp Refills Start End CLOPIDOGREL 75 MG TABLET 30 t* 11 08/13/2018 Route: ORAL Sig: Take 1 tablet by mouth once daily. Disposition: Return for Follow up in 6 months, arrangements made by research. Follow-up and Disposition History Recorded Encounter Status:Closed by SARAH JAMESON PA-C on 08/16/18 CNNURSE Observed: 08/13/2018 Status: COMPLETED Source: [place] 11:30 AM [facility] REPOSITORY Nurse Visit (CATHMN) ANABELLAJAYDE VLEASQUEZ ([id number]) 1950 M Date Time Provider Department 08/13/18 11:30 AM RESEARCH NURSE CARD INTERVENTION MNCATHMN During your visit today, we recorded the following information about you: Ngozi Jean RN, RN 08/13/2018 1:22 PM Signed Follow up Visit (45 day, 6 months, 1year) IRB #[id number] WATCH ? TAVR (WATCHMAN for Patients with Atrial Fibrillation Undergoing Transcatheter Aortic Valve Replacement) PI: Dr. Mj Blair I met with the patient for the follow up 45 day visit of the WATCH - TAVR study Reaffirmed that the patient still wishes to participate in the study and continues to consent to the study. Has the patient had any changes in his health since the last study visit? No Medications and allergy lists updated and current. Has the patient had any outside hospitalizations/ER visits: Yes Dates and locations: ED visit at [facility] 07/2018 for a-fib RVR NIHSS: 1a: Mental Status - LOC 0 = Alert and Attentive 1b. LOC Questions 0 = Correct age and month 1c LOC-Commands 0 = Both 2. Gaze 0 = Normal 3. Visual Capps 0 = Full 4. Facial Weakness 0 = Normal 5a. Left Arm 0 = No drift (10 sec) 5b. Right Arm 0 = No drift (10 sec) 6a.. Left Leg 0 = No drift 6b. Right Leg 0 = No drift 7. Ataxia 0 = Absent 8. Sensory 0 = Normal 9. Aphasia 0 = None 10. Dysarthria 0 = Absent 11. Neglect 0 = None NIHSS total = 0 Modified Huber Scale: yes: 0 = No symptoms KCCQ-12 QOL completed: Yes Thanked patient for participation in the trial and reminded them of their next follow visit at 6 month Discussed with the patient the importance of follow up in the study. he verbalized understanding. Patient contact information reaffirmed and updated. Updated coordinator contact information was given to the patient. Education provided:Follow up requirements/schedule Materials dispensed:contact card and follow-up schedule Ngozi Jean RN Pager # [phone] Referring Provider: MJ BLAIR [[id number]] Allergies As of Date: 08/13/2018 Noted Allergy Reaction SEASONAL ALLERGIES 10/04/2012 8 - GI Upset Comments: headache Date Reviewed: 08/13/2018 Reviewed by: Sarah Shwa) Elenita - Fully Assessed Reason for Visit: Research F/U [778] Cmt: Watch-TAVR 45 day follow up Primary Visit Diagnosis:Research -Watch-TAVR 45 day follow up visit [Z00.6] Prescriptions as of 08/13/2018 Sig: DILTIAZEM SR 120 MG 24 HR CAP Take 120 mg by mouth once robe* FUROSEMIDE 40 MG TABLET Take 1 tablet by mouth every * ASPIRIN 81 MG TABLET,DELAYED * Take 1 tablet by mouth once d* WARFARIN 5 MG TABLET Takes 5 mg tablet along with * WARFARIN 1 MG TABLET TAKE 1 TABLET MON, WED, THU METFORMIN ER 500 MG TABLET,EX* Take 1 tablet by mouth twice * Problem List As Of Date 08/13/2018 Noted Resolved 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 Diabetes mellitus type 2 in nonobese (HCC) [E11*INVALID FOR*07/12/2018 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*INVALID FOR*07/06/2014 CHF (congestive heart failure) ([facility]) [I50.9] INVALID FOR*07/12/2018 Aortic stenosis [I35.0] INVALID FOR* More... 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 Coronary artery disease involving capitan grande band escobar*INVALID FOR* More... S/P TAVR (transcatheter aortic valve replacemen*INVALID FOR* More... Presence of Watchman left atrial appendage clos*INVALID FOR* More... Encounter Status:Closed by NGOZI JEAN on 08/13/18 CURT Observed: 08/13/2018 Status: COMPLETED Source: [place] 10:00 AM [facility] REPOS[facility] Office Visit (CAFLMN) JAYDE KYLE ([id number]) 1950 M Date Time Provider Department 08/13/18 10:00 AM TRANSESOPHAGEAL ECHO CARD MAINCAFLMN During your visit today, we recorded the following information about you: Miranda Black, RN, RN 08/13/2018 12:27 PM Signed AMBULATORY PATIENT EDUCATION TOPIC: Procedure: ELIO READINESS TO LEARN COGNITIVE ABILITY: Alert and oriented MOTIVATION TO LEARN: Interested FAMILY SUPPORT: Unable to assess - Family not present INSTRUCTION PROVIDED TO: Patient PATIENT LEARNS BEST BY: Multiple Methods FACTORS AFFECTING LEARNING: None PHYSICAL LIMITATIONS AFFECTING LEARNING: None LEARNING RESPONSE DIAGNOSIS: 45 day follow up s/p WATCH TAVR METHOD OF INSTRUCTION: Individual instruction Written instruction - handouts Verbal instruction PATIENT / FAMILY RESPONSE: Verbalizes understanding of: POST-PROCEDURE INSTRUCTIONS-Correct actions to take to reduce post procedure complications PRE-PROCEDURE INSTRUCTIONS-Correct action to take to follow pre-procedure instructions FOLLOW-UP PLAN: Complete - No need for follow-up SUPPLEMENTAL MATERIAL: Procedure discharge instructions REFERRAL (RECOMMENDATION): None Electronically Signed By Miranda Black RN In Department: CARDIOLOGY Referring Provider: MJ BLAIR [[id number]] Allergies As of Date: 08/13/2018 Noted Allergy Reaction SEASONAL ALLERGIES 10/04/2012 8 - GI Upset Comments: headache Date Reviewed: 08/13/2018 Reviewed by: Sarah Shaw) Elenita - Fully Assessed Reason for Visit: Patient Education [91] Cmt: ELIO Visit Diagnoses:Heart valve replaced by transplant [Z95.2] Examination of participant in clinical trial [Z00.6] Order(s):ECHO TRANSESOPHAGEAL [[id number]] Order #: [id number]: 1 INR (POC) [[id number]] Order #: [id number]. 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 Diabetes mellitus type 2 in nonobese (HCC) [E11*INVALID FOR*07/12/2018 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*INVALID FOR*07/06/2014 CHF (congestive heart failure) (HCC) [I50.9] INVALID FOR*07/12/2018 Aortic stenosis [I35.0] INVALID FOR* More... 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 Coronary artery disease involving capitan grande band escobar*INVALID FOR* More... S/P TAVR (transcatheter aortic valve replacemen*INVALID FOR* More... Presence of Watchman left atrial appendage clos*INVALID FOR* More... Encounter Status:Closed by JAYCOB TADEO on 08/13/18 PROGRESS Observed: 08/13/2018 Status: COMPLETED Source: [place] 9:57 AM [facility] REPOSITORY [facility] ID: [id number] Author: Miranda Lim (Rn) MYRIAM Black Service: (none) Author Type: Registered Nurse Type: Progress Notes Filed: 08/13/2018 12:27 PM Note Text: AMBULATORY PATIENT EDUCATION TOPIC: Procedure: ELIO READINESS TO LEARN COGNITIVE ABILITY: Alert and oriented MOTIVATION TO LEARN: Interested FAMILY SUPPORT: Unable to assess - Family not present INSTRUCTION PROVIDED TO: Patient PATIENT LEARNS BEST BY: Multiple Methods FACTORS AFFECTING LEARNING: None PHYSICAL LIMITATIONS AFFECTING LEARNING: None LEARNING RESPONSE DIAGNOSIS: 45 day follow up s/p WATCH TAVR METHOD OF INSTRUCTION: Individual instruction Written instruction - handouts Verbal instruction PATIENT / FAMILY RESPONSE: Verbalizes understanding of: POST-PROCEDURE INSTRUCTIONS-Correct actions to take to reduce post procedure complications PRE-PROCEDURE INSTRUCTIONS-Correct action to take to follow pre-procedure instructions FOLLOW-UP PLAN: Complete - No need for follow-up SUPPLEMENTAL MATERIAL: Procedure discharge instructions REFERRAL (RECOMMENDATION): None Electronically Signed By Miranda Black RN In Department: CARDIOLOGY CBC Collected: 08/13/2018 Status: F Source: [place] 9:48 AM [facility] REPOSITORY TYPE CODE TESTS RESULT OUT OF REFERENCE UNITS RANGE LAB WBC 3.70-11.00 k/uL WBC 7.77 LAB RBC 4.20-6.00 m/uL RBC 4.66 LAB HGB 13.0-17.0 g/dL Hemoglobin 14.9 LAB HCT 39.0-51.0 % Hematocrit 45.2 LAB MCV 80.0-100.0 fL MCV 97.0 LAB MCH 26.0-34.0 pG MCH 32.0 LAB MCHC 30.5-36.0 g/dL MCHC 33.0 LAB RDWCV 11.5-15.0 % RDW-CV 14.2 LAB PLTCT 150-400 k/uL Platelet Count 157 LAB MPV 9.0-12.7 fL MPV 12.5 LAB ABSNUC <0.01 k/uL Absolute nRBC <0.01 Performed By: #### CBC, PT, BMP #### [facility] [address] [place], [place] [address] PROTIME Collected: 08/13/2018 Status: F Source: [place] 9:48 AM [facility] REPOSITORY TYPE CODE TESTS RESULT OUT OF RANGE REFERENCE UNITS LAB PSEC 9.7-13.0 sec High PT Sec 19.0 LAB INR 0.9-1.3 High PT INR 1.9 Result Comment: Vitamin K Antagonist (VKA) Therapeutic Range: INR 2 to 3 (Target INR of 2.5) Note: For patients treated with VKA drugs, such as warfarin, the [place] [employer] 2012 Guideline recommends a therapeutic INR range of 2 to 3 (target INR of 2.5). This recommendation includes high-risk patients with antiphospholipid syndrome with previous arterial or venous thromboembolism, current-generation mechanical or bioprosthetic aortic heart valve replacement. Note: Patients with mechanical aortic valve replacement and additional risk factors for thromboembolic events (atrial fibrillation, previous thromboembolism, LV dysfunction, hypercoagulable conditions) or an older generation mechanical AVR (i.e., ball in-Cage) or any mechanical MVR should have a INR therapeutic range of 2.5 to 3.5 (target INR of 3). Poonam YU, et al. Chest 2012, 141:7S-47S Jeancarlos ELLINGTON et al. [facility] 2017, 70: 252-289 Performed By: #### CBC, PT, BMP #### [facility] [address] [place], [place] [address] BASIC METABOLIC PANL Collected: 08/13/2018 Status: F Source: [place] 9:48 AM [facility] REPOSITORY TYPE CODE TESTS RESULT OUT OF REFERENCE UNITS RANGE LAB GLU 74-99 mg/dL High Glucose 134 Result Comment: The [place] Diabetes Association (ADA) provides guidance for cutoff values for fasting glucose and random glucose. The ADA defines fasting as no caloric intake for at least 8 hours. Fas ting plasma glucose results between 100 to 125 mg/dL indicate increased risk for diabetes (prediabetes). Fasting plasma glucose results greater than or equal to 126 mg/dL meet the criteria for diagnosis of diabetes. In the absence of unequivocal hyperglycemia, results should be confirmed by repeat testing. In a patient with classic symptoms of hyperglycemia or hyperglycemic crisis, random plasma glucose results greater than or equal to 200 mg/dL meet the criteria for diagnosis of diabetes. Reference: Standards of Medical Care in Diabetes 2016, [place] Diabetes Association. Diabetes Care. 2016.39(Suppl 1). LAB BUN 9-24 mg/dL BUN 24 LAB CRET 0.73-1.22 mg/dL Creatinine 0.95 LAB NA 136-144 mmol/L Sodium 139 LAB K 3.7-5.1 mmol/L Potassium 4.8 LAB CL 97-105 mmol/L Chloride 97 LAB CO2 22-30 mmol/L CO2 High 31 LAB AGAP 9-18 mmol/L Anion Gap 11 LAB CA 8.5-10.2 mg/dL Calcium, Total 9.9 LAB GFRAA eGFR- Amer. >60 LAB GFRNAA . eGFR-All Other Races >60 Result Comment: eGFR (Estimated GFR) Units of measure: mL/min/1.73 meters squared eGFR is derived from the reexpressed MDRD Study equation using the following parameters: serum creatinine, age, gender and race. The creatinine assay has been calibrated to be traceable to IDPR. An eGFR <60 mL/min/1.73m2 for >3 months is consistent with chronic kidney disease. Refer to KDOQI guidelines for clinical interpretation. In patients with unstable renal function, e.g. those with acute kidney injury, the eGFR may not accurately reflect actual GFR. Performed By: #### CBC, PT, BMP #### [facility] [address] [place], [place] [address] ECG COMPLETE W Observed: 08/13/2018 Status: F Source: [place] INTERPRETATION 9:36 AM [facility] RE[facility] NAME : JAYDE KYLE PID : [id number] : 1950 Gender : Male Race : ORD : [id number] Procedure Date : Aug 13 2018 09:36:18 Edit Date : Aug 13 2018 23:45:51 Diagnosis:ATRIAL FIBRILLATION ABNORMAL ECG Confirmed by LASHAY BARKER MD ([id number]) on 08/13/2018 11:45:44 PM Ventricular Rate : 96 BPM Atrial Rate : 96 BPM QRS Duration : 104 ms Q-T Interval : 370 ms QTC Calculation(Bezet) : 467 ms R [place] : 31 degrees T [place] : -18 degrees Test Reason : Location : 314 : J14 Overread By : LASHAY BARKER MD Edited By : LASHAY BARKER MD Referred By : MJ BLAIR Acquired by : KAYLEY ALFARO PROGRESS Observed: 08/09/2018 Status: COMPLETED Source: [place] 4:14 PM [facility] REPOSITORY [facility] ID: [id number] Author: Macho Solorio Service: (none) Author Type: Physician Type: Progress Notes Filed: 08/09/2018 4:18 PM Note Text: Agree with below Macho Solorio DO PROGRESS Observed: 08/09/2018 Status: COMPLETED Source: [place] 3:20 PM [facility] REPOSITORY [facility] ID: [id number] Author: Elisabeth Dos Santos RN Service: (none) Author Type: (none) Type: Progress Notes Filed: 08/09/2018 3:21 PM Note Text: patient had inr completed at [facility] patients inr is 2.6 (patients inr range is 2.0-3.0) patient is currently taking 5mg Tues,Thurs,Sat and 6mg all other days patients last dose change was on 07/21/18 due to a low level of 1.9 (dose at that time was 6mg Mon,Wed,Fri and 5mg all other days) patient has had no changes in medication and no missed doses and no change in diet Advised patient to continue on the same dose(s) and that they would only be contacted regarding dosage and follow up instructions after review with provider, if a change is needed. Written instructions given and patient verbalized understanding. Presently scheduled in 4 weeks (pt will call to schedule) for follow up INR. PROTHROMBIN TIME W/INR Collected: 07/30/2018 Status: F Source: [place] 4:21 PM [facility] REPOSITORY TYPE CODE TESTS RESULT OUT OF RANGE REFERENCE UNITS LAB L300.4150 11.7-14.9 SECONDS High PROTIME 22.1 LAB L300.4200 Normal INR 1.9 Performed By: #### L300.3900 #### [facility] [address] [place], [address] PROTIME Collected: 07/30/2018 Status: F Source: [place] 1:47 PM [facility] REPOSITORY TYPE CODE TESTS RESULT OUT OF REFERENCE UNITS RANGE LAB PSEC 9.7-13.0 sec Test PT sent to [facility]. Result Comment: Account Credited PATTI LAB INR 0.9-1.3 Test sent to PT INR [facility] [place]. Result Comment: Account Credited PATTI SHAY Observed: 07/26/2018 Status: COMPLETED Source: [place] 12:00 AM [facility] Telephone (HVICTR) JAYDE KYLE ([id number]) 1950 M Date Time Provider Department 07/26/18 VANESSA PATEL HVICTR During your visit today, we recorded the following information about you: Brionna Rodarte RN, RN 07/26/2018 3:12 PM [facility] Contact Center Inbound Phone Encounter DATE of SERVICE: 07/26/2018 TIME of SERVICE: 3:02 PM Status: Urgent, needs attention Service/Provider: Vanessa Gonzalez MD Reason for call: Medication Issue/Question and Arrythmia/Palpitations Contact information: Mikhail (spouse) [phone] Resolution: [facility] to [facility] Comments: Spouse calling post discharge. States pt is still having elevated heart rate. Earlier BP 113/95, pulse 79. Now pulse 111. Denies symptoms. Using Cardizem as instructed but would like to know if he should increase dosage. Following triage protocol, that if anything changes or symptomatic, to be seen in nearest [facility] ER for prompt attention. Spouse will be at phone for the next hour. Requests that if not contacted, she will call back to retrieve the message. Brionna Rodarte RN Date of Resolution: 07/26/2018 Time of Resolution 3:02 PM Santo Sims PA-C 07/26/2018 3:48 PM Signed Returned call. His HR runs 79-120, often 100-117. He forgot cardizem dose till late the other day. BP low normal and he has no sx, no CP, no SOB, no palpitations. Will continue current dose of cardizem CD 120 mg daily. Pt will monitor and call us w sx or sustained tachycardia. Back to see Sarah Jameson 08/13/18. Santo Sims PA-C Allergies As of Date: 07/26/2018 Noted Allergy Reaction SEASONAL ALLERGIES 10/04/2012 8 - GI Upset Comments: headache Date Reviewed: 07/19/2018 Reviewed by: Carina Davila ([facility]) Chuy - Fully Assessed Reason for Visit: Post Dc Program Call - Needs Attn [[id number]] Prescriptions as of 07/26/2018 Sig: ASPIRIN 81 MG TABLET,DELAYED * Take 1 tablet by mouth once d* DILTIAZEM SR 120 MG 24 HR CAP Take 120 mg by mouth once robe* FUROSEMIDE 40 MG TABLET Take 1 tablet by mouth every * METFORMIN ER 500 MG TABLET,EX* Take 1 tablet by mouth twice * WARFARIN 1 MG TABLET TAKE 1 TABLET MON, WED, FRI WARFARIN 5 MG TABLET Takes 5 mg tablet along with * Problem List As Of Date 07/26/2018 Noted Resolved 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 Diabetes mellitus type 2 in nonobese (HCC) [E11*INVALID FOR*07/12/2018 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*INVALID FOR*07/06/2014 CHF (congestive heart failure) (HCC) [I50.9] INVALID FOR*07/12/2018 Aortic stenosis [I35.0] INVALID FOR* More... 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 Coronary artery disease involving capitan grande band escobar*INVALID FOR* More... S/P TAVR (transcatheter aortic valve replacemen*INVALID FOR* More... Presence of Watchman left atrial appendage clos*INVALID FOR* More... Encounter Status:Closed by BRIONNA RODARTE on 07/26/18 PROGRESS Observed: 07/21/2018 Status: COMPLETED Source: [place] 1:31 PM [facility] HNO ID: [id number] Author: Adrienne Moon LPN Service: (none) Author Type: (none) Type: Progress Notes Filed: 07/21/2018 1:32 PM Note Text: Phoned patient and spoke to son Patrick and went over coumadin instructions from Dr Solorio 6 mg -- and 5 mg all other days and recheck INR in one week with understanding. Will call back to schedule appt. PROGRESS Observed: 07/21/2018 Status: COMPLETED Source: [place] 1:14 PM [facility] HNO ID: [id number] Author: Macho Solorio Service: (none) Author Type: Physician Type: Progress Notes Filed: 07/21/2018 1:32 PM Note Text: Continue same dose coumadin, recheck INR 1 week Macho Solorio DO PROGRESS Observed: 07/21/2018 Status: COMPLETED Source: [place] 12:59 PM [facility] HNO ID: [id number] Author: Rdaha Cadena RN Service: (none) Author Type: (none) Type: Progress Notes Filed: 07/21/2018 1:02 PM Note Text: Patient had INR completed at [facility] Patient's INR is 1.9 Patient is currently taking 6mg MWF, 5mg all other days Patient's last dose change was 11/20/16 Patient had heart valve replaced last Thursday. Restarted Coumadin on Saturday 07/14 and no change in diet. Patient visited ER this past Thursday night and was put on heart medication because his heart was going haywire but could not recall name of med. Advised patient that they would be contacted regarding medication dose and follow-up once reviewed by provider. After provider review, please contact patient with information and schedule follow-up appointment with coumadin clinic. Please leave message with patient's son regarding instructions. PROGRESS Observed: 07/19/2018 Status: COMPLETED Source: [place] 3:00 PM [facility] HNO ID: [id number] Author: Carina Whitley Service: (none) Author Type: Nurse Practitioner Type: Progress Notes Filed: 07/19/2018 11:08 PM Note Text: [facility] [place] [facility] Department of Cardiovascular Medicine SECTION OF CLINICAL CARDIOLOGY OUTPATIENT VISIT DATE July 19, 2018 OUTPATIENT VISIT TYPE ESTABLISHED FOLLOW UP SD/CHF Primary Chronometer Adjuster: [facility] Primary Care Physician: Macho Solorio DO Chief Complaint: Hospital Discharge Follow Up Date of Hospital Admission: 07/13/18 - 07/14/18 History of Present Illness: Mr Kyle is a 68 year old year old male who presents for hospital discharge follow up visit today. He has a past medical history of aortic stenosis now s/p TAVR (07/13/18), atrial fibrillation, CHF, HTN, HLD, and tobacco use (100 pack year). He was admitted for planned TAVR and watchman device. Per hospital discharge summary: Patient underwent successful TAVR. Echo post procedure. There is no aortic valve regurgitation. EKG NSR, no acute changes Since discharge, Mr Kyle had an episode of Afib RVR where he went to [facility] ED. He was restarted on diltiazem 120 mg daily with a reduction in HR to 80's-90's. He is following up today post discharge. Today, Mr Kyle states that he has been feeling well. He does endorse an area of tenderness at his right groin site that he is concerned about it. Denies: chest pain, shortness of breath, palpitations, lightheadedness, syncope, leg swelling, cough and wheezing Cardiovascular testing pertinent to appointment: EKG 07/19/18 Afib RVR Echo 07/14/18 CONCLUSIONS: - Technically difficult exam due to suboptimal positioning and body habitus. - Exam indication: s/p TAVR and Watchman - The left ventricle is normal in size. There is mild concentric left ventricular hypertrophy. Left ventricular systolic function is normal. EF = 55 ? 5% (visual est.) Grade II left ventricular diastolic dysfunction. - The right ventricle is normal in size. Right ventricular systolic function is normal. - The left atrial cavity is dilated. - The right atrial cavity is dilated. - S/P transcatheter aortic valve replacement. Bennett S3 prosthetic aortic valve (size #26). There is no aortic valve regurgitation. The peak gradient is 9 mmHg, the mean gradient is 4 mmHg and the dimensionless valve index is 0.70. - There is a patent foramen ovale as detected by Doppler. -Technically difficult study secondary to body habitus with multiple off-axis images. -Limited ECHO post TAVR - Exam was compared with the prior echocardiographic exam performed on 04/08/18. s/p TAVR and Watchman, otherwise similar findings. MEDICATIONS: apixaban (ELIQUIS) 5 mg tab(s) Take 1 tablet by mouth twice daily. Stop when INR is 2.0 or greater.Please apply virtual voucher aspirin, enteric coated (ECOTRIN LOW STRENGTH) 81 mg EC tablet Take 1 tablet by mouth once daily. furosemide (LASIX) 40 mg tablet Take 1 tablet by mouth every 48 hours. metFORMIN ER (GLUCOPHAGE XR) 500 mg 24 hr tablet Take 1 tablet by mouth twice daily before meals. GENERIC OKAY warfarin (COUMADIN) 1 mg tablet TAKE 1 TABLET THU, THU, THU warfarin (COUMADIN) 5 mg tablet Takes 5 mg tablet along with Warfarin 1 mg daily Thu-Thu-Thu Physical Examination: BP 98/72 Pulse 110 Resp 18 Wt 93.4 kg (206 lb) SpO2 100% BMI 29.56 kg/m? General: Well appearing, in no acute distress, speaking in complete sentences. Skin: No clubbing, no cyanosis. Neck: no jugular venous distention, Lungs: Clear to auscultation bilaterally, no wheezing or rhonchi. Heart: Irregular Extremities: No peripheral edema, Small R groin hematoma Neuro: Oriented to person, place and time, alert, cooperative, gait coordinated. Impression: Mr Kyle is a 68 year old year old male who presents for hospital discharge follow up visit today. He has a past medical history of aortic stenosis now s/p TAVR (07/13/18), atrial fibrillation, CHF, HTN, HLD, and tobacco use (100 pack year). He was admitted for planned TAVR and watchman device. Since discharge, Mr Kyle had an episode of Afib RVR where he went to [facility] ED. He was restarted on diltiazem 120 mg daily with a reduction in HR to 80's-90's. He is following up today post discharge. Today, Mr Kyle states that he has been feeling well. He does endorse an area of tenderness at his right groin site that he is concerned about it. Upon physical examination, R groin site does appear to a a small hematoma about the size of a quarter that is most likely related to the site healing. Instructed Mr Anabella and his about signs/symptoms to be aware of related to his groin hematoma. He was also in Afib RVR with a rate of 113 on EKG. In exam room, rate fluctuated between 80's - low 100's. He does not endorse chest pain, shortness of breath, or palpitations. Will continue current dose of diltiazem. His INR today is 1.9. Will stop eliquis today and continue with coumadin. Instructed to have INR drawn on Thursday this week. He will follow up with [facility] Olivares in August with repeat ELIO. If good seal on follow up ELIO, can stop coumadin at that time and then start clopidogrel 75 mg daily per discharge summary plan. Plan: Plan formulated along with Dr Patel -Marcy Singh. Continue all other medications including coumadin and diltazem -Follow up INR this Thursday -Follow up with SH[facility] Olivares Education/Counseling: We have discussed the following pharmacological measures during this visit: ? Reviewed all medications. ? Patient is able to get medications with out issues ? Reviewed any possible side effects of medications. ? Take ALL medications as prescribed. We discussed the following non-pharmacological measures during this visit: Diet: ? Eat a low-salt (sodium) diet (2,000 mg/day). ? Read food labels for sodium content. Exercise: ? Be active and exercise every day. Smoking and alcohol abstinence/cessation, if applicable Please Visit [email or web address] Follow up appointment Future Appointments Date Time Provider Department Center 08/13/2018 10:00 AM 24-TRANSESOPHAGEAL ECHO CARD MAIN CAFLMN CARD J BLD 08/13/2018 10:45 AM [id number] MAIN [id number] CARD J BLD 08/13/2018 11:00 AM [id number] MAIN LBJ1-4 CARD J BLD 08/13/2018 11:30 AM [id number] NURSE CARD INTERVENTION MN CATHMN CARD J BLD 08/13/2018 12:00 PM 2579-SARAH JAMESON (SHIRLEY) CATHMN CARD J BLD 09/14/2018 2:00 PM [id number] [facility] Questions or Concerns after you go home? Please call Nurse risk prevention engineer line at . I spent 50 minutes in this visit, with more than 50% of the time devoted to patient counseling. Giovanni Whitley CNP CNOV Observed: 07/19/2018 Status: COMPLETED Source: [place] 1:15 PM [facility] Office Visit (CARCMN) JAYDE KYLE ([id number]) 1950 M Date Time Provider Department 07/19/18 1:15 PM Carina WHITLEY (YELENA) CARCMN During your visit today, we recorded the following information about you: Pulse Respiration Blood pressure Weight 110/minute 18/minute 98/72 93.4 kg Giovanni Whitley CNP 07/19/2018 11:08 PM Signed [facility] [place] [facility] Department of Cardiovascular Medicine SECTION OF CLINICAL CARDIOLOGY OUTPATIENT VISIT DATE July 19, 2018 OUTPATIENT VISIT TYPE ESTABLISHED FOLLOW UP SD/CHF Primary Chronometer Adjuster: [facility] Primary Care Physician: Macho Solorio DO Chief Complaint: Hospital Discharge Follow Up Date of Hospital Admission: 07/13/18 - 07/14/18 History of Present Illness: Mr Kyle is a 68 year old year old male who presents for hospital discharge follow up visit today. He has a past medical history of aortic stenosis now s/p TAVR (07/13/18), atrial fibrillation, CHF, HTN, HLD, and tobacco use (100 pack year). He was admitted for planned TAVR and watchman device. Per hospital discharge summary: Patient underwent successful TAVR. Echo post procedure. There is no aortic valve regurgitation. EKG NSR, no acute changes Since discharge, Mr Kyle had an episode of Afib RVR where he went to [facility] ED. He was restarted on diltiazem 120 mg daily with a reduction in HR to 80's-90's. He is following up today post discharge. Today, Mr Anabella states that he has been feeling well. He does endorse an area of tenderness at his right groin site that he is concerned about it. Denies: chest pain, shortness of breath, palpitations, lightheadedness, syncope, leg swelling, cough and wheezing Cardiovascular testing pertinent to appointment: EKG 07/19/18 Afib RVR Echo 07/14/18 CONCLUSIONS: - Technically difficult exam due to suboptimal positioning and body habitus. - Exam indication: s/p TAVR and Watchman - The left ventricle is normal in size. There is mild concentric left ventricular hypertrophy. Left ventricular systolic function is normal. EF = 55 ? 5% (visual est.) Grade II left ventricular diastolic dysfunction. - The right ventricle is normal in size. Right ventricular systolic function is normal. - The left atrial cavity is dilated. - The right atrial cavity is dilated. - S/P transcatheter aortic valve replacement. Bennett S3 prosthetic aortic valve (size #26). There is no aortic valve regurgitation. The peak gradient is 9 mmHg, the mean gradient is 4 mmHg and the dimensionless valve index is 0.70. - There is a patent foramen ovale as detected by Doppler. -Technically difficult study secondary to body habitus with multiple off-axis images. -Limited ECHO post TAVR - Exam was compared with the prior echocardiographic exam performed on 04/08/18. s/p TAVR and Watchman, otherwise similar findings. MEDICATIONS: apixaban (ELIQUIS) 5 mg tab(s) Take 1 tablet by mouth twice daily. Stop when INR is 2.0 or greater.Please apply virtual voucher aspirin, enteric coated (ECOTRIN LOW STRENGTH) 81 mg EC tablet Take 1 tablet by mouth once daily. furosemide (LASIX) 40 mg tablet Take 1 tablet by mouth every 48 hours. metFORMIN ER (GLUCOPHAGE XR) 500 mg 24 hr tablet Take 1 tablet by mouth twice daily before meals. GENERIC OKAY warfarin (COUMADIN) 1 mg tablet TAKE 1 TABLET MON, WED, FRI warfarin (COUMADIN) 5 mg tablet Takes 5 mg tablet along with Warfarin 1 mg daily Mon-Wed-Fri Physical Examination: BP 98/72 Pulse 110 Resp 18 Wt 93.4 kg (206 lb) SpO2 100% BMI 29.56 kg/m? General: Well appearing, in no acute distress, speaking in complete sentences. Skin: No clubbing, no cyanosis. Neck: no jugular venous distention, Lungs: Clear to auscultation bilaterally, no wheezing or rhonchi. Heart: Irregular Extremities: No peripheral edema, Small R groin hematoma Neuro: Oriented to person, place and time, alert, cooperative, gait coordinated. Impression: Mr Kyle is a 68 year old year old male who presents for hospital discharge follow up visit today. He has a past medical history of aortic stenosis now s/p TAVR (07/13/18), atrial fibrillation, CHF, HTN, HLD, and tobacco use (100 pack year). He was admitted for planned TAVR and watchman device. Since discharge, Mr Kyle had an episode of Afib RVR where he went to [facility] ED. He was restarted on diltiazem 120 mg daily with a reduction in HR to 80's-90's. He is following up today post discharge. Today, Mr Kyle states that he has been feeling well. He does endorse an area of tenderness at his right groin site that he is concerned about it. Upon physical examination, R groin site does appear to a a small hematoma about the size of a quarter that is most likely related to the site healing. Instructed Mr Kyle and his about signs/symptoms to be aware of related to his groin hematoma. He was also in Afib RVR with a rate of 113 on EKG. In exam room, rate fluctuated between 80's - low 100's. He does not endorse chest pain, shortness of breath, or palpitations. Will continue current dose of diltiazem. His INR today is 1.9. Will stop eliquis today and continue with coumadin. Instructed to have INR drawn on Thursday this week. He will follow up with SHIRLEY Olivares in August with repeat ELIO. If good seal on follow up ELIO, can stop coumadin at that time and then start clopidogrel 75 mg daily per discharge summary plan. Plan: Plan formulated along with Dr Patel -Stop Samantha. Continue all other medications including coumadin and diltazem -Follow up INR this Thursday -Follow up with SHIR[facility] Olivares Education/Counseling: We have discussed the following pharmacological measures during this visit: ? Reviewed all medications. ? Patient is able to get medications with out issues ? Reviewed any possible side effects of medications. ? Take ALL medications as prescribed. We discussed the following non-pharmacological measures during this visit: Diet: ? Eat a low-salt (sodium) diet (2,000 mg/day). ? Read food labels for sodium content. Exercise: ? Be active and exercise every day. Smoking and alcohol abstinence/cessation, if applicable Please Visit [email or web address] Follow up appointment Future Appointments Date Time Provider Department Center 08/13/2018 10:00 AM 24-TRANSESOPHAGEAL ECHO CARD MAIN CAFLMN [facility]ARD [facility] 08/13/2018 10:45 AM [id number] MAIN [id number] CARD J [facility] 08/13/2018 11:00 AM [id number]-LBJ1-4 MAIN LBJ1-[address] [facility] 08/13/2018 11:30 AM [id number] NURSE CARD INTERVENTION [place] CATHMN CARD J D 08/13/2018 12:00 PM 2579-SARAH JAMESON) CATHMN CARD J D 09/14/2018 2:00 PM [id number] [facility] Questions or Concerns after you go home? Please call Nurse risk prevention engineer line at . I spent 50 minutes in this visit, with more than 50% of the time devoted to patient counseling. Giovanni Whitley CNP Referring Provider: VANESSA PATEL [[id number]] Allergies As of Date: 07/19/2018 Noted Allergy Reaction SEASONAL ALLERGIES 10/04/2012 8 - GI Upset Comments: headache Date Reviewed: 07/19/2018 Reviewed by: Carina Davila ([employer]) Chuy - Fully Assessed Reason for Visit: CARD Hospital Follow Up [1227] Primary Visit Diagnosis:S/P TAVR (transcatheter aortic valve replacement) [Z95.2] Other Visit Diagnoses:Atrial fibrillation, unspecified type (HCC) [I48.91] Coronary artery disease involving capitan grande band coronary artery of capitan grande band heart without angina pectoris [I25.10] Presence of Watchman left atrial appendage closure device [Z95.818] Prescriptions as of 07/19/2018 Sig: DILTIAZEM SR 120 MG 24 HR CAP Take 120 mg by mouth once robe* ASPIRIN 81 MG TABLET,DELAYED * Take 1 tablet by mouth once d* FUROSEMIDE 40 MG TABLET Take 1 tablet by mouth every * METFORMIN ER 500 MG TABLET,EX* Take 1 tablet by mouth twice * WARFARIN 1 MG TABLET TAKE 1 TABLET MON, THU, THU WARFARIN 5 MG TABLET Takes 5 mg tablet along with * Problem List As Of Date 07/19/2018 Noted Resolved 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 Diabetes mellitus type 2 in nonobese (HCC) [E11*INVALID FOR*07/12/2018 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*INVALID FOR*07/06/2014 CHF (congestive heart failure) (HCC) [I50.9] INVALID FOR*07/12/2018 Aortic stenosis [I35.0] INVALID FOR* More... 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 Coronary artery disease involving capitan grande band escobar*INVALID FOR* More... S/P TAVR (transcatheter aortic valve replacemen*INVALID FOR* More... Presence of Watchman left atrial appendage clos*INVALID FOR* More... Medications Discontinued During This Encounter apixaban (ELIQUIS) 5 mg tab(s) 60 t* 0 07/14/2018 07/19/2018 Class: Historical Med Route: ORAL Sig: Take 1 tablet by mouth twice daily. Stop when INR is 2.0 or greater. Please apply virtual voucher Disc: Course of therapy completed Disposition: Return for Sarah Duyradha. Follow-up and Disposition History Recorded Encounter Status:Closed by SOSA WHITLEY on 07/19/18 ECG COMPLETE W Observed: 07/19/2018 Status: F Source: [place] INTERPRETATION 12:48 PM [facility] NAME : JAYDE KYLE PID : [id number] : 1950 Gender : Male Race : ORD : [id number] Procedure Date : Jul 19 2018 12:48:49 Edit Date : Jul 20 2018 14:17:19 Diagnosis:ATRIAL FIBRILLATION WITH RAPID VENTRICULAR RESPONSE NONSPECIFIC T WAVE ABNORMALITY ABNORMAL ECG Confirmed by MD FARIHA, PhD, RAN ([id number]) on 07/20/2018 2:17:12 PM Ventricular Rate : 113 BPM Atrial Rate : 107 BPM QRS Duration : 100 ms Q-T Interval : 292 ms QTC Calculation(Bezet) : 400 ms R [place] : 73 degrees T [place] : 258 degrees Test Reason : Location : 314 : J14 Overread By : MD FARIHA, PhD,RAN Edited By : MD FARIHA, PhD,RAN Referred By : VANESSA PATEL Acquired by : GREER CHAPPELL Collected: 07/19/2018 Status: F Source: [place] 11:32 AM [facility] MAIN [place] REPOSITORY TYPE CODE TESTS RESULT OUT OF RANGE REFERENCE UNITS LAB PSEC 9.7-13.0 sec High PT Sec 18.8 LAB INR 0.9-1.3 High PT INR 1.9 Result Comment: Vitamin K Antagonist (VKA) Therapeutic Range: INR 2 to 3 (Target INR of 2.5) Note: For patients treated with VKA drugs, such as warfarin, the [place] [employer] 2012 Guideline recommends a therapeutic INR range of 2 to 3 (target INR of 2.5). This recommendation includes high-risk patients with antiphospholipid syndrome with previous arterial or venous thromboembolism, current-generation mechanical or bioprosthetic aortic heart valve replacement. Note: Patients with mechanical aortic valve replacement and additional risk factors for thromboembolic events (atrial fibrillation, previous thromboembolism, LV dysfunction, hypercoagulable conditions) or an older generation mechanical AVR (i.e., ball in-Cage) or any mechanical MVR should have a INR therapeutic range of 2.5 to 3.5 (target INR of 3). Poonam GH, et al. Chest 2012, 141:7S-47S Jeancarlos RA, et al. [facility] 2017, 70: 252-289 Performed By: #### PT, CBC, BMP #### [facility] [address] [place], [place] [address] CBC Collected: 07/19/2018 Status: F Source: [place] 11:32 AM [facility] REPOSITORY TYPE CODE TESTS RESULT OUT OF REFERENCE UNITS RANGE LAB WBC 3.70-11.00 k/uL WBC 8.26 LAB RBC 4.20-6.00 m/uL RBC 4.42 LAB HGB 13.0-17.0 g/dL Hemoglobin 14.2 LAB HCT 39.0-51.0 % Hematocrit 43.8 LAB MCV 80.0-100.0 fL MCV 99.1 LAB MCH 26.0-34.0 pG MCH 32.1 LAB MCHC 30.5-36.0 g/dL MCHC 32.4 LAB RDWCV 11.5-15.0 % RDW-CV 14.2 LAB PLTCT 150-400 k/uL Platelet Count 182 LAB MPV 9.0-12.7 fL MPV 12.3 LAB ABSNUC <0.01 k/uL Absolute nRBC <0.01 Performed By: #### PT, CBC, BMP #### [facility] [address] [place], [place] [address] BASIC METABOLIC PANL Collected: 07/19/2018 Status: F Source: [place] 11:32 AM [facility] REPOSITORY TYPE CODE TESTS RESULT OUT OF REFERENCE UNITS RANGE LAB GLU 74-99 mg/dL High Glucose 147 Result Comment: The [place] Diabetes Association (ADA) provides guidance for cutoff values for fasting glucose and random glucose. The ADA defines fasting as no caloric intake for at least 8 hours. Fas ting plasma glucose results between 100 to 125 mg/dL indicate increased risk for diabetes (prediabetes). Fasting plasma glucose results greater than or equal to 126 mg/dL meet the criteria for diagnosis of diabetes. In the absence of unequivocal hyperglycemia, results should be confirmed by repeat testing. In a patient with classic symptoms of hyperglycemia or hyperglycemic crisis, random plasma glucose results greater than or equal to 200 mg/dL meet the criteria for diagnosis of diabetes. Reference: Standards of Medical Care in Diabetes 2016, [place] Diabetes Association. Diabetes Care. 2016.39(Suppl 1). LAB BUN 9-24 mg/dL BUN 17 LAB CRET 0.73-1.22 mg/dL Creatinine 0.92 LAB NA 136-144 mmol/L Sodium 136 LAB K 3.7-5.1 mmol/L Potassium 4.7 LAB CL 97-105 mmol/L Chloride 97 LAB CO2 22-30 mmol/L CO2 29 LAB AGAP 9-18 mmol/L Anion Gap 10 LAB CA 8.5-10.2 mg/dL Calcium, Total 9.2 LAB GFRAA eGFR- Amer. >60 LAB GFRNAA . eGFR-All Other Races >60 Result Comment: eGFR (Estimated GFR) Units of measure: mL/min/1.73 meters squared eGFR is derived from the reexpressed MDRD Study equation using the following parameters: serum creatinine, age, gender and race. The creatinine assay has been calibrated to be traceable to IDMS. An eGFR <60 mL/min/1.73m2 for >3 months is consistent with chronic kidney disease. Refer to KDOQI guidelines for clinical interpretation. In patients with unstable renal function, e.g. those with acute kidney injury, the eGFR may not accurately reflect actual GFR. Performed By: #### PT, CBC, BMP #### [facility] [address] [place], [place] [address] 12 LEAD ELECTROCARDIOGRAM Observed: 07/19/2018 Status: F Source: [place] 7:38 AM [facility] REPOSITORY [facility] Cardiovascular Services [address] [place] [address] 12 Lead EKG 07/16/18 1035 MR#: [id number] Acct: [id number] Name: JAYDE KYLE Jr. Rep #: [id number] : 1950 68 From: Gigi Bardales MD Attending Dr: Status: DEP ER Ordering Dr: Leonardo Torres MD Date: 07/16/18 Location: ED Sex: M C Admitted: Test Reason : PALPS Blood Pressure : / mmHG Vent. Rate : 129 BPM Atrial Rate : 153 BPM P-R Int : 000 ms QRS Dur : 098 ms QT Int : 318 ms P-R-T Axes : 000 049 -19 degrees QTc Int : 465 ms Atrial fibrillation with rapid ventricular response Nonspecific ST abnormality Abnormal QRS-T angle, consider primary T wave abnormality Abnormal ECG Confirmed by GIGI BARDALES MD ([id number]), video news editor JET NEGRETE ([id number]) on 07/19/2018 7:38:07 AM Referred By: Confirmed By:GIGI BARDALES MD 07/19/18 0738 Date Gigi Bardales MD CC: Macho Faria DO; Leonardo Torres MD Signed DISCHARGE INSTRUCTION Observed: 07/16/2018 Status: F Source: [place] 11:34 AM [facility] Medical Records Department [address] [place] [address] Discharge Instruction 07/16/18 1133 MR#: [id number] Acct: [id number] Name: JAYDE KYLE Jr. Rep #: [id number] : 1950 68 From: Leonardo Torres MD PCP: Macho Faria DO Status: REG ER ED Disposition - Plan for ED Patient: Disposition: Home or Assisted Living Chief Complaint: Palpitations Instructions: ED Afib Referrals: Macho Solorio DO [Primary Care Provider] - What to do if you have Problems For any increased pain, shortness of breath, bleeding, nausea or vomiting, chest pain, or any unexpected problems, contact your Primary Care Provider. Call [facility] ([phone]) or report to the closest Emergency Room. Call 911 if necessary. 07/16/18 1134 <Electronically signed by Leonardo Torres MD> Date Leonardo Torres MD Cosigner Signature (If Indicated): Date CC: Macho Faria DO EMERGENCY DEPARTMENT Observed: 07/16/2018 Status: F Source: [place] SUMMARY 11:33 AM [facility] REPOSITORY [facility] Medical Records Department [address] [facility] [place] [address] Emergency Department Summary 07/16/18 1035 MR#: [id number] Acct: [id number] Name: JAYDE KYLE Jr. Rep #: [id number] : 1950 68 From: Leonardo Torres MD PCP: Macho Faria DO Status: REG ER - ER Visit Summary Date of Service: 07/16/18 Chief Complaint: Palpitations History of Present Illness: The patient is a 68 M who presents with palpitations. Started today. Earlier this week the patient had a transaortic valve replacement as well as a watchman device deployed. He went home on Thursday. Today, Thursday, he started with palpitations. At his discharge, he was cardioverted. He was taking Cardizem 120 mg daily but this was discontinued because he was in a normal sinus rhythm. He is currently on Eliquis and warfarin. When his warfarin was therapeutic he was to stop the Eliquis. His surgery was done up at the [place] [facility]. He denies any chest pain with his symptoms. Physical Examination: Vital signs reviewed. HEENT exam unremarkable. Heart is irregularly irregular and tachycardic without murmurs. Lungs are clear to auscultation. Abdomen is soft and nontender. Extremities reveal no edema. Skin exam normal. Wound in the right groin is clean and dry and intact. There is no tenderness to palpation in this area. Neurologic exam normal. Test Results: EKG is A. fib with rate of 129. There are nonspecific ST and T wave changes. Laboratory studies reveal an INR of 1.9, troponin of 0.096 Emergency Department Course and Treatment: She was given 1 dose of 20 mg of IV Cardizem. He is still in atrial fibrillation but his rate is now in the 80s. His troponin is indeterminate. INR still slightly subtherapeutic at 1.9. I discussed this with his physician at [facility], Dr. Patel. He suggested restarting the oral Cardizem daily. He would like him to still have the Eliquis and Coumadin at home. Patient understands this and has a follow-up appointment on Thursday. Patient's heart rate continued to be in the 80s but still in atrial fibrillation throughout his stay. Treatment Plan: [] Disposition: Discharge Impression: True for ablation with RVR, recent TAVR This note was generated with Kovio dictation software. It may contain incorrect words, spelling, and punctuation that were not noted in review of the chart prior to signing ED Disposition - Plan for ED Patient: Chief Complaint: Palpitations Referrals: Macho Solorio DO [Primary Care Provider] - What to do if you have Problems For any increased pain, shortness of breath, bleeding, nausea or vomiting, chest pain, or any unexpected problems, contact your Primary Care Provider. Call [facility] ([phone]) or report to the closest Emergency Room. Call 911 if necessary. 07/16/18 1133 <Electronically signed by Leonardo Torres MD> Date Leonardo Torres MD Cosigner Signature (If Indicated): Date CC: Macho Faria DO PROGRESS Observed: 07/16/2018 Status: COMPLETED Source: [place] 11:18 AM [facility] REPOSITORY HNO ID: [id number] Author: Zoraida (Yelena) Thiago Service: (none) Author Type: Nurse Practitioner Type: Progress Notes Filed: 07/19/2018 9:12 AM Note Text: CC: Patient presents with: Blood Pressure heart problems HPI Jayde Kyle is a 68 year old male who presents today with and daughter for complaints of elevated BP and rapid heart rate s/t TAVR x3 days ago. Patient's daughter contacted Cardiology at [facility] where patient underwent his TAVR procedure with Dr. Vanessa Patel, notified of elevated BP 130/90 and heart rate from 120-130s. Patient was asymptomatic at the time of the call and instructions were given for patient to proceed to the ER. Patient now presenting in the office without complaint. indicates that patient had taken his morning medication- Eliquis, ASA and antibiotics- this morning with his tea and when she checked on him he was sleeping and had spilled his tea which is out of character since patient had returned home from the hospital. At that time vitals were checked and recorded as above. Daughter indicates that instructions were given to report to the Urgent Care. Patient denies any symptoms of chest pain, trouble breathing, palpitations or racing heart. states patient woke this morning with complaints of feeling jittery. EKG results reviewed with patient and family and discussed need for immediate ER referral. 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 Zach Howard - COLONOSCOPY 12/30/2016 - EGD BIOPSY SING OR MULT 01/22/2018 - EGD W/ BIOPSY SNGL/MLTPL 12/20/2016 - EGD W/O OR W/BRUSH/WASH 12/2012 EGD - EGD W/O OR W/BRUSH/WASH 04/14/2013 EGD - EGD W/O OR W/BRUSH/WASH 07/19/13 EGD - EGD W/O OR W/BRUSH/WASH 01/22/2018 antral biopsy, GE junction biopsy - HERNIA REPAIR HX umbilical ALLERGIES Seasonal Allergies MEDICATIONS apixaban (ELIQUIS) 5 mg tab(s) Take 1 tablet by mouth twice daily. Stop when INR is 2.0 or greater.Please apply virtual voucher aspirin, enteric coated (ECOTRIN LOW STRENGTH) 81 mg EC tablet Take 1 tablet by mouth once daily. cephALEXin (KEFLEX) 500 mg capsule Take 1 capsule by mouth every 8 hours for 11 doses. furosemide (LASIX) 40 mg tablet Take 1 tablet by mouth every 48 hours. metFORMIN ER (GLUCOPHAGE XR) 500 mg 24 hr tablet Take 1 tablet by mouth twice daily before meals. GENERIC OKAY warfarin (COUMADIN) 1 mg tablet TAKE 1 TABLET THU, THU, THU warfarin (COUMADIN) 5 mg tablet Takes 5 mg tablet along with Warfarin 1 mg daily Thu-Thu-Thu PHYSICAL EXAM BP 98/72 (BP Site: Left Arm, BP Position: Sitting, BP Cuff Size: Regular Adult) Pulse 120 Resp 18 Wt 93.4 kg (206 lb) BMI 29.56 kg/m? General Appearance: well appearing, in no acute distress, alert Skin: Skin color, texture, turgor normal for age; Lungs: lungs clear to auscultation. No wheezing, rhonchi, rales Heart: Positive findings: tachycardia, irregular rhythm ASSESSMENT/PLAN: 1. Atrial fibrillation with RVR (HCC) - ICD9: 427.31, ICD10: I48.91 (primary diagnosis) - Patient asymptomatic, recent TAVR 07/13/18 - Immediate ER referral, patient and family declined EMS transport - Family verbalizes patient will be transported as a passenger to [facility] notified of patient's impending arrival with clinical update, patient had arrived while updating ER physician 2. Tachycardia - ICD9: 785.0, ICD10: R00.0 - Plan and assessment findings as above, see #1 3. S/P TAVR (transcatheter aortic valve replacement) - ICD9: V43.3, ICD10: Z95.2 - Given recent surgery and ECG findings, recommend immediate ER referral - Needs INR checked today - Follow up with cardiology as planned Zoraida Pearson APRN.PLAY WRITER Prescription instructions reviewed with patient as applicable. Potential red flag symptoms discussed with the patient. Reviewed appropriate action plan to take if red flag symptoms occur. Patient agreeable to treatment plan. CBC W/DIFF, AUTOMATED Collected: 07/16/2018 Status: F Source: [place] 10:35 AM [facility] REPOSITORY TYPE CODE TESTS RESULT OUT OF RANGE REFERENCE UNITS LAB L100.1000 4.4-11.0 K/mm3 Normal WBC 9.2 LAB L100.1200 4.6-6.2 M/mm3 Low RBC 4.33 LAB L100.1300 13.0-16.5 g/dl Normal HGB 14.3 LAB L100.1400 40-54 % Normal HCT 42.8 LAB L100.1500 80-94 fL High MCV 98.8 LAB L100.1600 27.0-32.0 pg High MCH 33.0 LAB L100.1700 32-36 g/gl Normal MCHC 33.4 LAB L100.1810 11.6-14.6 % Normal RDW CV 14.3 LAB L100.1820 35.1-43.9 fl High RDW SD 50.8 LAB L100.1900 150-450 K/mm3 Low PLT 148 LAB L100.2000 6.2-12.0 fl Normal MPV 11.3 LAB L100.2100 47-70 % High NEUT% 70.9 LAB L100.2200 19-41 % Low LY% 15.1 LAB L100.2300 0-10 % High MONO% 11.2 LAB L100.2400 0-5 % Normal EO% 2.2 LAB L100.2500 0-1 % Normal BASO% 0.4 LAB L100.2550 0.0-0.9 % Normal IM GRAN % 0.200 Result Comment: IG% - Immature Granulocytes (promyelocytes, myelocytes and metamyelocytes) > 1% indicates that a LEFT SHIFT is Present. LAB L100.2620 2.0-7.7 X10 3/uL Normal Absolute Neut 6.6 LAB L100.2720 0.83-4.51 X10 3/ul Normal Absolute Lymph 1.39 Performed By: #### L100.0100 #### [facility] [place] [place], [address] PROTHROMBIN TIME W/INR Collected: 07/16/2018 Status: F Source: [place] 10:35 AM [facility] REPOSITORY TYPE CODE TESTS RESULT OUT OF RANGE REFERENCE UNITS LAB L300.4150 11.7-14.9 SECONDS High PROTIME 21.8 LAB L300.4200 Normal INR 1.9 Performed By: #### L300.3900 #### [facility] [address] [facility]. [place], [place], [address] BASIC METABOLIC Collected: 07/16/2018 Status: F Source: [place] PROFILE (BMP) 10:35 AM [facility] REPOSITORY TYPE CODE TESTS RESULT OUT OF RANGE REFERENCE UNITS LAB L501.0100 74-106 mg/dL High GLU 159 Result Comment: Fasting Glucose result greater than or equal to 126 mg/dL suggests DIABETES MELLITUS per A.D.A. criteria. Please note revised GLUCOSE reference range effective 2017. LAB L501.1000 7-18 mg/dL Normal BUN 13 LAB L501.1100 0.70-1.30 mg/dL Normal CREAT,SERUM 0.94 Result Comment: The validity of the calculated GFR AND GFRAA in patients over 70 years has not been determined. Clinical correlation is essential. LAB L501.1110 >60 mL/min Normal EST GFR 85 Result Comment: Non- GFR Calc LAB L501.1115 >60 mL/min Normal EST GFR - AA 103 Result Comment: GFR Calc LAB L501.1255 ml/min Normal Estimated CRCL 77.66 LAB L501.1300 10-20 RATIO Normal BUN/CRE 13.8 LAB L501.2200 8.5-10 mg/dL Normal .1 CA 8.7 LAB L501.5300 136-14 mmol/L Normal 5 NA 137 LAB L501.5600 3.5-5. mmol/L Normal 1 K 4.4 LAB L501.5900 98-107 mmol/L Low CL 97 LAB L501.6100 21.0-3 mmol/L High 2.0 CO2 34.0 LAB L501.6200 5-15 Normal GAP 6 Performed By: #### L500.2500, L501.4010 #### [facility] [address] [facility]. [place], [place], [address] TROPONIN-I Collected: 07/16/2018 Status: F Source: [place] 10:35 AM [facility] REPOSITORY TYPE CODE TESTS RESULT OUT OF RANGE REFERENCE UNITS LAB L501.4010 <0.045 ng/mL High 0.096 TROPONIN-I Result Comment: TROPONIN-I EXPECTED VALUES <0.045 Negative 0.045 - 0.590 Consistent with Cardiac Damage > OR = 0.600 Critical Value Not every elevated troponin is indicative of SD. These values should be used with clinical judgement in examining the patient's clinical picture for diagnosis. To establish a diagnosis of SD versus myocardial injury, there must be a demonstrated rise and/or fall in the troponin values, in addition to ischemic symptoms, EKG changes, new regional wall motion abnormality, and/or angiographical evidence. PLEASE NOTE: REFERENCE RANGES EDITED 17 Performed By: #### L500.2500, L501.4010 #### [facility] [address] [place], [address] CNOV Observed: 07/16/2018 Status: COMPLETED Source: [place] 10:00 AM [facility] REPOSITORY Office Visit (INTMWS) JAYDE KYLE ([id number]) 1950 M Date Time Provider Department 07/16/18 10:00 AM ZORAIDA PEARSON ([facility]) INTMWS During your visit today, we recorded the following information about you: Pulse Respiration Blood pressure Weight 120/minute 18/minute 98/72 93.4 kg Zoraida Pearson APRN.CNP 07/19/2018 9:12 AM Signed CC: Patient presents with: Blood Pressure heart problems HPI Jayde Blade Fletcherr is a 68 year old male who presents today with and daughter for complaints of elevated BP and rapid heart rate s/t TAVR x3 days ago. Patient's daughter contacted Cardiology at [facility] where patient underwent his TAVR procedure with Dr. Vanessa Patel, notified of elevated BP 130/90 and heart rate from 120-130s. Patient was asymptomatic at the time of the call and instructions were given for patient to proceed to the ER. Patient now presenting in the office without complaint. indicates that patient had taken his morning medication- Eliquis, ASA and antibiotics- this morning with his tea and when she checked on him he was sleeping and had spilled his tea which is out of character since patient had returned home from the hospital. At that time vitals were checked and recorded as above. Daughter indicates that instructions were given to report to the Urgent Care. Patient denies any symptoms of chest pain, trouble breathing, palpitations or racing heart. states patient woke this morning with complaints of feeling jittery. EKG results reviewed with patient and family and discussed need for immediate ER referral. 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 Zach Howard - COLONOSCOPY 12/30/2016 - EGD BIOPSY SING OR MULT 01/22/2018 - EGD W/ BIOPSY SNGL/MLTPL 12/20/2016 - EGD W/O OR W/BRUSH/WASH 12/2012 EGD - EGD W/O OR W/BRUSH/WASH 04/14/2013 EGD - EGD W/O OR W/BRUSH/WASH 07/19/13 EGD - EGD W/O OR W/BRUSH/WASH 01/22/2018 antral biopsy, GE junction biopsy - HERNIA REPAIR HX umbilical ALLERGIES Seasonal Allergies MEDICATIONS apixaban (ELIQUIS) 5 mg tab(s) Take 1 tablet by mouth twice daily. Stop when INR is 2.0 or greater.Please apply virtual voucher aspirin, enteric coated (ECOTRIN LOW STRENGTH) 81 mg EC tablet Take 1 tablet by mouth once daily. cephALEXin (KEFLEX) 500 mg capsule Take 1 capsule by mouth every 8 hours for 11 doses. furosemide (LASIX) 40 mg tablet Take 1 tablet by mouth every 48 hours. metFORMIN ER (GLUCOPHAGE XR) 500 mg 24 hr tablet Take 1 tablet by mouth twice daily before meals. GENERIC OKAY warfarin (COUMADIN) 1 mg tablet TAKE 1 TABLET MON, THU, THU warfarin (COUMADIN) 5 mg tablet Takes 5 mg tablet along with Warfarin 1 mg daily Thu-Thu-Thu PHYSICAL EXAM BP 98/72 (BP Site: Left Arm, BP Position: Sitting, BP Cuff Size: Regular Adult) Pulse 120 Resp 18 Wt 93.4 kg (206 lb) BMI 29.56 kg/m? General Appearance: well appearing, in no acute distress, alert Skin: Skin color, texture, turgor normal for age; Lungs: lungs clear to auscultation. No wheezing, rhonchi, rales Heart: Positive findings: tachycardia, irregular rhythm ASSESSMENT/PLAN: 1. Atrial fibrillation with RVR (HCC) - ICD9: 427.31, ICD10: I48.91 (primary diagnosis) - Patient asymptomatic, recent TAVR 07/13/18 - Immediate ER referral, patient and family declined EMS transport - Family verbalizes patient will be transported as a passenger to [facility] notified of patient's impending arrival with clinical update, patient had arrived while updating ER physician 2. Tachycardia - ICD9: 785.0, ICD10: R00.0 - Plan and assessment findings as above, see #1 3. S/P TAVR (transcatheter aortic valve replacement) - ICD9: V43.3, ICD10: Z95.2 - Given recent surgery and ECG findings, recommend immediate ER referral - Needs INR checked today - Follow up with cardiology as planned Zoraida Pearson APRN.PLAY WRITER Prescription instructions reviewed with patient as applicable. Potential red flag symptoms discussed with the patient. Reviewed appropriate action plan to take if red flag symptoms occur. Patient agreeable to treatment plan. Referring Provider: SELF [[id number]] Allergies As of Date: 07/16/2018 Noted Allergy Reaction SEASONAL ALLERGIES 10/04/2012 8 - GI Upset Comments: headache Date Reviewed: 07/16/2018 Reviewed by: Elaina Adams LPN - Fully Assessed Reason for Visit: Blood Pressure [15] heart problems [Other] Primary Visit Diagnosis:Atrial fibrillation with RVR (HCC) [I48.91] Other Visit Diagnoses:Tachycardia [R00.0] S/P TAVR (transcatheter aortic valve replacement) [Z95.2] Order(s):ECG COMPLETE W INTERPRETATION [ECG01] Order #: [id number] FUTURE Prescriptions as of 07/16/2018 Sig: APIXABAN 5 MG TABLET Take 1 tablet by mouth twice * ASPIRIN 81 MG TABLET,DELAYED * Take 1 tablet by mouth once d* CEPHALEXIN 500 MG CAPSULE Take 1 capsule by mouth every* FUROSEMIDE 40 MG TABLET Take 1 tablet by mouth every * METFORMIN ER 500 MG TABLET,EX* Take 1 tablet by mouth twice * WARFARIN 1 MG TABLET TAKE 1 TABLET MON, THU, THU WARFARIN 5 MG TABLET Takes 5 mg tablet along with * Problem List As Of Date 07/16/2018 Noted Resolved 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 Diabetes mellitus type 2 in nonobese (HCC) [E11*INVALID FOR*07/12/2018 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*INVALID FOR*07/06/2014 CHF (congestive heart failure) (HCC) [I50.9] INVALID FOR*07/12/2018 Aortic stenosis [I35.0] INVALID FOR* More... 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 Coronary artery disease involving capitan grande band escobar*INVALID FOR* More... S/P TAVR (transcatheter aortic valve replacemen*INVALID FOR* More... Presence of Watchman left atrial appendage clos*INVALID FOR* More... Follow-up and Disposition History Recorded Encounter Status:Closed by ZORAIDA PEARSON CNP on 07/19/18 PLAN OF CARE Observed: 07/14/2018 Status: COMPLETED Source: [place] 1:42 PM [facility] HNO ID: [id number] Author: Uche Tavares (Icebox Worker) Service: (none) Author Type: (none) Type: Plan of Care Filed: 07/14/2018 1:43 PM Note Text: PHARMACY BEDSIDE DELIVERY SERVICE Patient Name: Jayde Kyle The marked outpatient medications were Filled at: [facility] and delivered to the patient's bedside to patient Medication List START taking these medications apixaban 5 mg tab(s) x Commonly known as: ELIQUIS cephALEXin 500 mg capsule x Commonly known as: KEFLEX Take 1 capsule by mouth every 8 hours for 11 doses. CHANGE how you take these medications LASIX 40 mg tablet Generic drug: furosemide What changed: when to take this * warfarin 1 mg tablet Commonly known as: COUMADIN TAKE 1 TABLET THU, THU, THU What changed: Another medication with the same name was removed. Continue taking this medication, and follow the directions you see here. * warfarin 5 mg tablet Commonly known as: COUMADIN Takes 5 mg tablet along with Warfarin 1 mg daily Thu-Thu-Thu What changed: Another medication with the same name was removed. Continue taking this medication, and follow the directions you see here. * This list has 2 medication(s) that are the same as other medications prescribed for you. Read the directions carefully, and ask your doctor or other care provider to review them with you. CONTINUE taking these medications aspirin, enteric coated 81 mg EC tablet Commonly known as: ECOTRIN LOW STRENGTH Take 1 tablet by mouth once daily. metFORMIN ER 500 mg 24 hr tablet Commonly known as: GLUCOPHAGE XR Take 1 tablet by mouth twice daily before meals. GENERIC OKAY You might also be taking other medications not listed above. If you have questions about any of your other medications, talk to the person who prescribed them or your Primary Care Provider. STOP taking these medications COMPOUNDED PRESCRIPTION COMPOUNDED PRESCRIPTION COMPOUNDED PRESCRIPTION COMPOUNDED PRESCRIPTION diltiazem CD 120 mg 24 hr capsule Commonly known as: CARDIZEM CD Keshiacathie Alcalaon ([place]) PAGER: July 14, 2018 1:42 PM PROGRESS Observed: 07/14/2018 Status: COMPLETED Source: [place] 11:07 AM [facility] O ID: [id number] Author: Marcela (Rn) MYRIAM Ferrer Service: (none) Author Type: Registered Nurse Type: Progress Notes Filed: 07/14/2018 11:23 AM Note Text: Pre-Discharge Visit IRB #[id number] WATCH ? TAVR (WATCHMAN for Patients with Atrial Fibrillation Undergoing Transcatheter Aortic Valve Replacement) PI: Dr. Mj Blair I met with the patient for the discharge visit of the WATCH ? TAVR Study; his son Venkat was also present. Reaffirmed that the patient still wishes to participate in the study and continues to consent to the study. Has the patient had any changes in his health since the last study visit? No Education provided:Protocol required tests/procedures and Follow up requirements/schedule. Review of medications and protocol guidelines. Temporary WATCHMAN Device Card given to patient Yes, instructed to keep it in his wallet and to be able share information about the watchman as part of his medical history. Appointment schedule for their follow up visit given to patient: Yes. Discussed with the patient the importance of follow up in the study. He verbalized understanding. Thanked patient for participation in the trial and reminded them of their next study visit at 45 days. Marcela Ferrer RN Pager # [phone] CNNURSE Observed: 07/14/2018 Status: COMPLETED Source: [place] 11:00 AM [facility] Nurse Visit (CATHMN) JAYDE KYLE ([id number]) 1950 M Date Time Provider Department 07/14/18 11:00 AM RESEARCH NURSE CARD INTERVENTION MNCATHMN During your visit today, we recorded the following information about you: Marcela Ferrer RN, RN 07/14/2018 11:23 AM Signed Pre-Discharge Visit IRB #[id number] WATCH ? TAVR (WATCHMAN for Patients with Atrial Fibrillation Undergoing Transcatheter Aortic Valve Replacement) PI: Dr. Mj Blair I met with the patient for the discharge visit of the WATCH ? TAVR Study; his son Venkat was also present. Reaffirmed that the patient still wishes to participate in the study and continues to consent to the study. Has the patient had any changes in his health since the last study visit? No Education provided:Protocol required tests/procedures and Follow up requirements/schedule. Review of medications and protocol guidelines. Temporary WATCHMAN Device Card given to patient Yes, instructed to keep it in his wallet and to be able share information about the watchman as part of his medical history. Appointment schedule for their follow up visit given to patient: Yes. Discussed with the patient the importance of follow up in the study. He verbalized understanding. Thanked patient for participation in the trial and reminded them of their next study visit at 45 days. Marcela Ferrer RN Pager # [phone] Marcela Ferrer RN, RN 07/14/2018 12:06 PM Written Referring Provider: MJ BLAIR [[id number]] Allergies As of Date: 07/14/2018 Noted Allergy Reaction SEASONAL ALLERGIES 10/04/2012 8 - GI Upset Comments: headache Date Reviewed: 07/14/2018 Reviewed by: Arabella ReyesRn) MYRIAM Horton - Fully Assessed Reason for Visit: Research F/U [778] Cmt: IRB# [id number] WATCH-TAVR Discharge Visit Primary Visit Diagnosis:IRB #[id number] WATCH ? 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 Diabetes mellitus type 2 in nonobese (HCC) [E11*INVALID FOR*07/12/2018 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*INVALID FOR*07/06/2014 CHF (congestive heart failure) (HCC) [I50.9] INVALID FOR*07/12/2018 Aortic stenosis [I35.0] INVALID FOR* More... 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 Coronary artery disease involving capitan grande band escobar*INVALID FOR* More... Encounter Status:Closed by MARCELA FERRER on 07/14/18 XR CHEST 2V FRONTAL/LAT Observed: 07/14/2018 Status: F Source: [place] 8:38 AM [facility] * * *Final Report* * * DATE OF EXAM: Jul 14 2018 8:38AM JIX [id number] - XR CHEST 2V FRONTAL/LAT / PROCEDURE REASON: Acute respiratory illness * * * * Physician Interpretation * * * * EXAMINATION: CHEST RADIOGRAPH (2 VIEW FRONTAL and LATERAL) - PORTABLE CLINICAL HISTORY: Acute respiratory illness, MQ: XC2_5 Comparison: PA and lateral CXR dated 07/12/2018 RESULT: Lines, tubes, and devices: None. Lungs and pleura: There is vascular redistribution without overt edema. There is stable elevation of the left hemidiaphragm with passive atelectasis of the left lung base. No pleural effusion or pneumothorax is identified. Cardiomediastinal silhouette: The cardiac silhouette appears enlarged. The patient is status post interval TAVR. There has also been placement of a presumed Watchman device in the left atrial appendage. There are atherosclerotic calcifications in the aortic arch. Other: There are mild degenerative changes in the thoracic spine. IMPRESSION: No acute disease identified in the lungs or mediastinum. Since 07/12/2018, there has been interval TAVR and placement of a Watchman device in the left atrial appendage. Manufacturing Technologist: INEZ Transcribe Date/Time: Jul 14 2018 12:28P Dictated by : BRAD NOGUERA MD This examination was interpreted and the report reviewed and electronically signed by: BRAD NOGUERA MD on Jul 14 2018 12:36PM EST [id number] PROGRESS Observed: 07/14/2018 Status: COMPLETED Source: [place] 7:13 AM [facility] HNO ID: [id number] Author: Delmar Simons (Fel) Service: Interventional Cardiology Author Type: Fellow Type: Progress Notes Filed: 07/14/2018 10:28 AM Note Text: INTERVENTIONAL CARDIOLOGY Post Intervention Progress Note PROCEDURE: Transfemoral TAVR with a 26 mm Bennett Krista S3 valve, and a 30 mm Watchman device SUBJECTIVE: Telemetry with brief run of atrial tachy but remained in sinus. No CP or SOB. No issues with access sites. Current Inpatient Medications Current hospital medications: apixaban 5 mg tab(s) (ELIQUIS) 5 mg ORAL BID aspirin 81 mg chewable tab(s) 81 mg ORAL DAILY fentaNYL 50 mcg/mL 25-50 mcg injection (SUBLIMAZE) 25-50 mcg INTRAVENOUS (PACU) PRN fentaNYL 50 mcg/mL 50 mcg injection (SUBLIMAZE) 50 mcg INTRAVENOUS (PACU) PRN ondansetron (PF) 4 mg injection (ZOFRAN) 4 mg INTRAVENOUS (PACU) PRN perflutren lipid microspheres 1.1 mg/mL 1.3 mL injection (DEFINITY) 1.3 mL INTRAVENOUS DIRECTED PRN warfarin 5 mg tab(s) (COUMADIN) 5 mg ORAL DAILY - WARFARIN warfarin order for discharge OTHER PRN PHYSICAL EXAM BP 121/74 Pulse 77 Temp 36 ?C (96.8 ?F) Resp 21 Ht 177.8 cm (5' 10) Wt 93.4 kg (205 lb 12.8 oz) SpO2 94% BMI 29.53 kg/m? GEN: Awake, alert and orientedx3, pleasant and cooperative HEENT: MMM, OP clear, sclera anicteric NECK: no jugular venous distention CV: Regular rate and rhythm, normal S1 and S2 PULM: Normal effort, clear to the bases bilaterally ABD: Soft, non-tender, non-distended, EXT: Warm and well perfused without peripheral edema, no hematoma LABS: Recent Labs 07/14/18 0220 07/12/18 0805 HCT 39.8 43.4 PLT 158 180 CREAT 0.82 0.86 EKG: sinus rhythm Assessment and Plan: 68 year old male with severe aortic stenosis and Afib status post transfemoral TAVR with a 26 mm Bennett Krista S3 valve and 30 mm Watchman device 1. Aspirin 81 mg daily 2. Apixaban 5 mg BID as a bridge until his INR is therapeutic, then stop. 3. Coumadin to a goal INR of 2-3 for at least 45 days. If good seal on follow up ELIO, can stop coumadin at that time and start clopidogrel 75 mg daily. 4. Cephalexin prophylaxis x 5 days 5. Echo / CXR today 6. Discharge home Please don't hesitate to contact me with any questions or concerns. Dimitry Simons MD Interventional Telephone Lines Repairer Pager: [phone] July 14, 2018 7:13 AM ECG COMPLETE W Observed: 07/14/2018 Status: F Source: [place] INTERPRETATION 2:42 AM [facility] RE[facility] NAME : JAYDE KYLE PID : [id number] : 1950 Gender : Male Race : ORD : [id number] Procedure Date : Jul 14 2018 02:42:26 Edit Date : Jul 15 2018 17:50:47 Diagnosis:NORMAL SINUS RHYTHM NONSPECIFIC T WAVE ABNORMALITY ABNORMAL ECG Confirmed by BECKY MCNEIL M.D. ([id number]) on 07/15/2018 5:42:45 PM Ventricular Rate : 70 BPM Atrial Rate : 70 BPM P-R Interval : 186 ms QRS Duration : 108 ms Q-T Interval : 520 ms QTC Calculation(Bezet) : 561 ms P [place] : 59 degrees R [place] : 4 degrees T [place] : 63 degrees Test Reason : Location : 333 : [id number] Overread By : BECKY MCNEIL M.D. Edited By : BECKY MCNEIL M.D. Referred By : , Acquired by : SOY DEAN CBC AND DIFFERENTIAL Collected: 07/14/2018 Status: F Source: [place] 2:20 AM [facility] REPOS[facility] TYPE CODE TESTS RESULT OUT OF REFERENCE UNITS RANGE LAB WBC 3.70-11.00 k/uL WBC 7.96 LAB RBC 4.20-6.00 m/uL Low RBC 4.07 LAB HGB 13.0-17.0 g/dL Hemoglobin 13.0 LAB HCT 39.0-51.0 % Hematocrit 39.8 LAB MCV 80.0-100.0 fL MCV 97.8 LAB MCH 26.0-34.0 pG MCH 31.9 LAB MCHC 30.5-36.0 g/dL MCHC 32.7 LAB RDWCV 11.5-15.0 % RDW-CV 14.6 LAB PLTCT 150-400 k/uL Platelet Count 158 LAB MPV 9.0-12.7 fL MPV 12.0 LAB ANEUT % Neut% 71.8 LAB AANEUT 1.45-7.50 k/uL Abs Neut 5.72 LAB ALYMP % Lymph% 16.0 LAB AALYMP 1.00-4.00 k/uL Abs Lymph 1.27 LAB AMONO % Howard% 10.6 LAB AAMONO <0.87 k/uL Abs Howard 0.84 LAB AEOS % Eosin% 1.1 LAB AAEOS <0.46 k/uL Abs Eosin 0.09 LAB ABASO % Baso% 0.5 LAB AABASO <0.11 k/uL Abs Baso 0.04 LAB AUNRBC 0 /100 WBC NRBCs 0.0 LAB ABNRBC <0.01 k/uL Absolute nRBC <0.01 LAB DTYP DTYPE Auto Diff Performed By: #### CBCDIF, PT, BMP, HBA1C #### [facility] [address] [place], [place] [address] PROTIME Collected: 07/14/2018 Status: F Source: [place] 2:20 AM [facility] RE[facility] TYPE CODE TESTS RESULT OUT OF RANGE REFERENCE UNITS LAB PSEC 9.7-13.0 sec PT Sec 12.4 LAB INR 0.9-1.3 PT INR 1.2 Result Comment: Vitamin K Antagonist (VKA) Therapeutic Range: INR 2 to 3 (Target INR of 2.5) Note: For patients treated with VKA drugs, such as warfarin, the [place] [employer] 2012 Guideline recommends a therapeutic INR range of 2 to 3 (target INR of 2.5). This recommendation includes high-risk patients with antiphospholipid syndrome with previous arterial or venous thromboembolism, current-generation mechanical or bioprosthetic aortic heart valve replacement. Note: Patients with mechanical aortic valve replacement and additional risk factors for thromboembolic events (atrial fibrillation, previous thromboembolism, LV dysfunction, hypercoagulable conditions) or an older generation mechanical AVR (i.e., ball in-Cage) or any mechanical MVR should have a INR therapeutic range of 2.5 to 3.5 (target INR of 3). Poonam YU, et al. Chest 2012, 141:7S-47S Jeancarlos ELLINGTON et al. [facility] 2017, 70: 252-289 Performed By: #### CBCDIF, PT, BMP, HBA1C #### [facility] [address] [place] [id number] BASIC METABOLIC PANL Collected: 07/14/2018 Status: F Source: [place] 2:20 AM [facility] REPOSITORY TYPE CODE TESTS RESULT OUT OF REFERENCE UNITS RANGE LAB GLU 74-99 mg/dL High Glucose 122 Result Comment: The [place] Diabetes Association (ADA) provides guidance for cutoff values for fasting glucose and random glucose. The ADA defines fasting as no caloric intake for at least 8 hours. Fas ting plasma glucose results between 100 to 125 mg/dL indicate increased risk for diabetes (prediabetes). Fasting plasma glucose results greater than or equal to 126 mg/dL meet the criteria for diagnosis of diabetes. In the absence of unequivocal hyperglycemia, results should be confirmed by repeat testing. In a patient with classic symptoms of hyperglycemia or hyperglycemic crisis, random plasma glucose results greater than or equal to 200 mg/dL meet the criteria for diagnosis of diabetes. Reference: Standards of Medical Care in Diabetes 2016, [place] Diabetes Association. Diabetes Care. 2016.39(Suppl 1). LAB BUN 9-24 mg/dL BUN 17 LAB CRET 0.73-1.22 mg/dL Creatinine 0.82 LAB NA 136-144 mmol/L Sodium 136 LAB K 3.7-5.1 mmol/L Potassium 4.5 LAB CL 97-105 mmol/L Chloride 99 LAB CO2 22-30 mmol/L CO2 29 LAB AGAP 9-18 mmol/L Anion Gap Low 8 LAB CA 8.5-10.2 mg/dL Calcium, Total 8.9 LAB GFRAA eGFR- Amer. >60 LAB GFRNAA . eGFR-All Other Races >60 Result Comment: eGFR (Estimated GFR) Units of measure: mL/min/1.73 meters squared eGFR is derived from the reexpressed MDRD Study equation using the following parameters: serum creatinine, age, gender and race. The creatinine assay has been calibrated to be traceable to IDMS. An eGFR <60 mL/min/1.73m2 for >3 months is consistent with chronic kidney disease. Refer to KDOQI guidelines for clinical interpretation. In patients with unstable renal function, e.g. those with acute kidney injury, the eGFR may not accurately reflect actual GFR. Performed By: #### CBCDIF, PT, BMP, HBA1C #### [facility] [address] [place], [place] [address] HEMOGLOBIN A1C Collected: 07/14/2018 Status: F Source: [place] 2:20 AM [facility] REPOS[facility] TYPE CODE TESTS RESULT OUT OF REFERENCE UNITS RANGE LAB HGBA1C 4.3-5.6 % High Hemoglobin A1c 7.4 Result Comment: [place] Diabetes Association guidelines indicate that patients with HgbA1c in the range 5.7-6.4% are at increased risk for development of diabetes, and intervention by lifestyle modification may be beneficial. HgbA1c greater or equal to 6.5% is considered diagnostic of diabetes. LAB HBA0 mg/dL Est. Average Glucose 166 Result Comment: eAG: (Estimated average glucose) is a calculated value from HgbA1c and is construction sales representative of the average blood glucose level in the last 2-3 month period. Performed By: #### CBCDIF, PT, BMP, HBA1C #### [facility] [address] [place], [place] [address] CNDS Observed: 07/13/2018 Status: COMPLETED Source: [place] 5:55 PM [facility] HNO ID: [id number] Author: Santo Sims (Pa) Service: Cardiovascular Medicine Author Type: Physician Digital Intern Type: Discharge Summaries Filed: 07/14/2018 1:12 PM Note Text: Department of Cardiovascular Medicine Discharge Summary PATIENT NAME: Jayde Kyle ADMISSION DATE: 07/13/2018 DISCHARGE DATE: 07/14/2018 Attending Physician: Vanessa Patel MD Code Status: Not on file Primary Service: Hvi Card Intervention Admission Diagnosis: Aortic stenosis Discharge Diagnosis: Aortic stensis Secondary Diagnoses: Patient Active Hospital Problem List: Atrial fibrillation (HCC) (12/02/2012) Hypercholesteremia (06/14/2014) Aortic stenosis (09/19/2014) Uncontrolled type 2 diabetes mellitus without complication, without long-term current use of insulin ([facility]) (02/10/2018) Patient in clinical research study: IRB# [id number] WATCH-TAVR (07/13/2018) Coronary artery disease involving capitan grande band coronary artery of capitan grande band heart without angina pectoris (07/13/2018) S/P TAVR (transcatheter aortic valve replacement) (07/14/2018) Presence of Watchman left atrial appendage closure device (07/14/2018) Reason for Hospitalization: 68 year old [place] male with PMH significant for tobacco use (100pack year), HTN (dilt 120), HLD, CHF (lasix 40mg Qday), DM (controlled with weight loss, now on metformin), AF (on AC and BB), initially diagnosed with CHF at the end of 2013, admitted now for TAVR Hospital Course: Patient underwent successful TAVR Echo post procedure. There is no aortic valve regurgitation EKG NSR, no acute changes Consults: None Major Procedure or Operation: Transfemoral TAVR with a 26 mm Bennett Krista S3 valve, and a 30 mm Watchman device + DC cardioversion to NSR Other Procedures, Testing AND Radiology: Echo: CONCLUSIONS: - Technically difficult exam due to suboptimal positioning and body habitus. - Exam indication: s/p TAVR and Watchman - The left ventricle is normal in size. There is mild concentric left ventricular hypertrophy. Left ventricular systolic function is normal. EF = 55 ? 5% (visual est.) Grade II left ventricular diastolic dysfunction. - The right ventricle is normal in size. Right ventricular systolic function is normal. - The left atrial cavity is dilated. - The right atrial cavity is dilated. - S/P transcatheter aortic valve replacement. Bennett S3 prosthetic aortic valve (size #26). There is no aortic valve regurgitation. The peak gradient is 9 mmHg, the mean gradient is 4 mmHg and the dimensionless valve index is 0.70. - There is a patent foramen ovale as detected by Doppler. -Technically difficult study secondary to body habitus with multiple off-axis images. -Limited ECHO post TAVR ? - Exam was compared with the prior echocardiographic exam performed on 04/08/18. s/p TAVR and Watchman, otherwise similar findings. ECG: Diagnosis:NORMAL SINUS RHYTHM NONSPECIFIC T WAVE ABNORMALITY ABNORMAL ECG ? Ventricular Rate : 70 ?BPM Atrial Rate : 70 ?BPM P-R Interval : 186 ?ms QRS Duration : 108 ?ms Q-T Interval : 520 ?ms QTC Calculation(Bezet) : 561 ?ms Patient Condition at Discharge: Improved Disposition: Home/Self Care Information Provided to the Patient: Patient given copy of After Visit Summary which included activity instructions, diet instructions, wound care instructions, medication instructions and follow up appointment Subacute bacterial endocarditis prophylaxis: Always tell your dentist you need antibiotics prior to dental work as you have a prosthetic aortic valve Your plan for anticoagulation: 1. Aspirin 81 mg daily 2. Apixaban 5 mg BID as a bridge until his INR is 2.0 or greater, then stop apixaban. 3. Coumadin to a goal INR of 2-3 for at least 45 days. If good seal on follow up ELIO, can stop coumadin at that time and then start clopidogrel 75 mg daily. ALLERGIES Allergen Reactions - Seasonal Allergies GI Upset headache Discharge Medications: Current Discharge Medication List START taking these medications apixaban (ELIQUIS) 5 mg Take 5 mg by mouth twice daily. Stop when INR is 2.0 or greater. Please apply virtual voucher Qty: 60 tablet Refills: 0 cephALEXin (KEFLEX) 500 mg Take 500 mg by mouth every 8 hours. Qty: 11 capsule Refills: 0 CONTINUE these medications which have CHANGED furosemide (LASIX) 40 mg Take 40 mg by mouth every 48 hours. CONTINUE these medications which have NOT CHANGED aspirin, enteric coated (ASPIRIN, ENTERIC COATED) 81 mg Take 81 mg by mouth once daily. metFORMIN ER (GLUCOPHAGE XR) 500 mg Take 500 mg by mouth twice daily before meals. GENERIC OKAY Qty: 60 tablet Refills: 11 Associated Diagnoses:Uncontrolled type 2 diabetes mellitus without complication, without long-term current use of insulin (HCC) !! warfarin (COUMADIN) 1 mg tablet TAKE 1 TABLET THU, WED, THU Qty: 30 tablet Refills: 0 !! warfarin (COUMADIN) 5 mg tablet Takes 5 mg tablet along with Warfarin 1 mg daily Thu-Thu-Thu Qty: 60 tablet Refills: 1 !! - Potential duplicate medications found. Please discuss with provider. STOP taking these medications COMPOUNDED PRESCRIPTION Comments: Reason for Stopping: COMPOUNDED PRESCRIPTION Comments: Reason for Stopping: COMPOUNDED PRESCRIPTION Comments: Reason for Stopping: COMPOUNDED PRESCRIPTION Comments: Reason for Stopping: diltiazem CD (CARDIZEM CD, CARTIA XT) 120 mg Comments: Reason for Stopping: Transitions of Care Critical Issues: Outpatient Management: * Are there important medication changes and/or outstanding issues that need to be addressed: see meds * What is the plan for follow up: see meds Future Appointments Date Time Provider Department Center 07/19/2018 12:10 PM [id number] R[facility] RAWLSD 07/19/2018 12:30 PM [id number] MAIN [id number] CARD J BLD 07/19/2018 1:15 PM [id number], S BLAKE (PLAY WRITER) CARCMN CARD J BLD 08/13/2018 10:00 AM 24-TRANSESOPHAGEAL ECHO CARD MAIN CAFLMN CARD J BLD 08/13/2018 10:45 AM [id number] MAIN [id number] CARD J BLD 08/13/2018 11:00 AM [id number] MAIN [id number] CARD J BLD 08/13/2018 11:30 AM [id number] NURSE CARD INTERVENTION MN CATHMN CARD J BLD 08/13/2018 12:00 PM [id number]-SARAH JAMESON (PA) CATHMN CARD J BLD 09/14/2018 2:00 PM [id number] [facility] Follow up INR in [facility] anticoagulation [facility] on 07/16/18. Pt is to stop apixaban when INR 2.0 or greater. Highest Readmission Risk Score: 7 The 30 day readmissions risk score is derived from an internally validated risk model which evaluates patient level characteristics, utilization history, medication orders and lab results up until the day of discharge. Patients with a score of 40 or above are considered highest risk for readmission. Specific patient level drivers will be listed at the bottom of the summary. This patient?s risk for 30-day readmission is determined using the following contributing drivers Pt variables contributing to increased readmission risk: 16 Most Recent BUN Result 8 Active Medication Orders 1 Insurance - Self Pay 1 Active Anticoagulant Electronically SIGNED by Licensed Independent Practitioner: Santo Sims PA-C ECG COMPLETE W Observed: 07/13/2018 Status: F Source: [place] INTERPRETATION 4:00 PM [facility] REPOSITORY NAME : JAYDE KYLE PID : [id number] : 1950 Gender : Male Race : ORD : [id number] Procedure Date : Jul 13 2018 16:00:50 Edit Date : Jul 15 2018 17:50:44 Diagnosis:SINUS BRADYCARDIA NONSPECIFIC T WAVE ABNORMALITY ABNORMAL ECG Confirmed by BECKY MCNEIL M.D. ([id number]) on 07/15/2018 5:42:45 PM Ventricular Rate : 58 BPM Atrial Rate : 58 BPM P-R Interval : 196 ms QRS Duration : 108 ms Q-T Interval : 434 ms QTC Calculation(Bezet) : 426 ms P [place] : 52 degrees R [place] : 36 degrees T [place] : 94 degrees Test Reason : Location : 33 : A31 28 Overread By : BECKY MCNEIL M.D. Edited By : BECKY MCNEIL M.D. Referred By : , Acquired by : [id number], PROGRESS Observed: 07/13/2018 Status: COMPLETED Source: [place] 3:52 PM [facility] REPOSITORY HNO ID: [id number] Author: Marcela (Rn) MYRIAM Ferrer Service: (none) Author Type: Registered Nurse Type: Progress Notes Filed: 07/13/2018 3:56 PM Note Text: Procedure Visit IRB #[id number] WATCH ? TAVR (WATCHMAN for Patients with Atrial Fibrillation Undergoing Transcatheter Aortic Valve Replacement) PI: Dr. Mj Blair I met with the patient for the procedure visit of the WATCH ? TAVR Study Has the patient had any changes in his health since the last study visit? No Patient was enrolled and randomized to TAVR/WATCHMAN combined Procedure Completed Marcela Ferrer RN Pager # [phone] ANES POST Observed: 07/13/2018 Status: COMPLETED Source: [place] 2:40 PM [facility] REPOSITORY HNO ID: [id number] Author: Chandana Malone Service: Anesthesiology Author Type: Anesthesiologist Type: Anesthesia PostOp Filed: 07/13/2018 2:41 PM Note Text: POST ANESTHESIA EVALUATION NOTE SERVICE DATE: 07/13/2018 SERVICE TIME: 14:40 s/p TF TAVR + Watchman procedure : 1950 Vitals: 07/13/18806 Temp: 36.1 ?C (97 ?F) 07/13/18 08 BP: 138/80 07/13/18 08 Pulse: 114 07/13/18806 Resp: 16 07/13/18806 SpO2: 99% Validated Vital Signs: HR: 52; BP: 127/76; RR: 12; SpO2%: 99; Temperature: 36.3 POST ANES STATUS: No apparent anesthetic complications. The patient is appropriately hydrated with stable respiratory and cardiovascular status. Patient has safe and adequate airway control. The patient has appropriate pain relief and no significant post operative nausea or vomiting. The patient has achieved baseline mental status. Intra-Operative Events: No Significant Anesthesia Events Further assessment by Anesthesia Service: None Other Remarks: SIGNATURE: Chandana Malone MD PATIENT NAME: Jayde Kyle DATE: July 13, 2018 TIME: 2:40 PM PAGER/CONTACT #: [phone] CNNURSE Observed: 07/13/2018 Status: COMPLETED Source: [place] 8:00 AM [facility] REPOSITORY Nurse Visit (CATHMN) JAYDE KYLE ([id number]) 1950 M Date Time Provider Department 07/13/18 8:00 AM RESEARCH NURSE CARD INTERVENTION MNCATHMN During your visit today, we recorded the following information about you: Marcela Ferrer RN, RN 07/13/2018 3:56 PM Signed Procedure Visit IRB #[id number] WATCH ? TAVR (WATCHMAN for Patients with Atrial Fibrillation Undergoing Transcatheter Aortic Valve Replacement) PI: Dr. Mj Blair I met with the patient for the procedure visit of the WATCH ? TAVR Study Has the patient had any changes in his health since the last study visit? No Patient was enrolled and randomized to TAVR/WATCHMAN combined Procedure Completed Marcela Ferrer RN Pager # [phone] Referring Provider: MJ BLAIR [[id number]] Allergies As of Date: 07/13/2018 Noted Allergy Reaction SEASONAL ALLERGIES 10/04/2012 8 - GI Upset Comments: headache Date Reviewed: 07/13/2018 Reviewed by: Perla (Rn) MYRIAM Colon - Fully Assessed Reason for Visit: Research [[id number]] Primary Visit Diagnosis:Patient in clinical research study: IRB# [id number] WATCH-TAVR [Z00.6] Comment:Patient received TAVR + Wathman device. Prescriptions as of 07/13/2018 Sig: ASPIRIN 81 MG TABLET,DELAYED * Take 1 tablet by mouth once d* COMPOUNDED PRESCRIPTION Organically Bound Minerals COMPOUNDED PRESCRIPTION Cardiotrophin PMG COMPOUNDED PRESCRIPTION Forever Arctic C COMPOUNDED PRESCRIPTION Cataplex E2 DILTIAZEM SR 120 MG 24 HR CAP Take 1 capsule by mouth once * FUROSEMIDE 40 MG TABLET Take 40 mg by mouth once dalia* METFORMIN ER 500 MG TABLET,EX* Take 1 tablet by mouth twice * WARFARIN 1 MG TABLET Take 1 mg by mouth 3 times a * WARFARIN 1 MG TABLET TAKE 1 TABLET MON, WED, THU WARFARIN 5 MG TABLET Take 5 mg by mouth daily as d* WARFARIN 5 MG TABLET Takes 5 mg tablet along with * Problem List As Of Date 07/13/2018 Noted Resolved 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] INVALID FOR* Drug induced neutropenia [D70.2] INVALID FOR*11/23/2012 Atrial fibrillation [I48.91] INVALID FOR* 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] INVALID FOR* Hypercholesteremia [E78.00] INVALID FOR* Diabetes mellitus type 2 in nonobese (HCC) [E11*INVALID FOR*07/12/2018 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*INVALID FOR*07/06/2014 CHF (congestive heart failure) (HCC) [I50.9] INVALID FOR*07/12/2018 Aortic stenosis [I35.0] INVALID FOR* History of gastric cancer [Z85.028] INVALID FOR*07/12/2018 Chronic atrial fibrillation (HCC) [I48.2] INVALID FOR* Chronic diastolic congestive heart failure (HCC*INVALID FOR*07/12/2018 Nonrheumatic aortic valve stenosis [I35.0] INVALID FOR*07/12/2018 Positive for macroalbuminuria [R80.9] INVALID FOR* Screening for intestinal cancer [Z12.10] INVALID FOR* 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*INVALID FOR* Bilateral leg edema [R60.0] INVALID FOR* Varicose veins of both legs with edema [I83.893]INVALID FOR* Chronic anticoagulation [Z79.01] INVALID FOR* Aortic valve stenosis [I35.0] INVALID FOR*07/12/2018 Cough [R05] INVALID FOR* Obesity, Class I, BMI 30-34.9 [E66.9] INVALID FOR* Phimosis [N47.1] INVALID FOR* Severe aortic stenosis [I35.0] INVALID FOR* Dyslipidemia [E78.5] INVALID FOR* Uncontrolled type 2 diabetes mellitus without c*INVALID FOR* Leg ulcer, left, limited to breakdown of skin (*INVALID FOR*07/12/2018 Patient in clinical research study: IRB# [id number]*INVALID FOR* More... Encounter Status:Closed by FRANKYolaMARCELA on 07/13/18 NURSING PROG Observed: 07/13/2018 Status: COMPLETED Source: [place] 7:54 AM [facility] REPOSITORY HNO ID: [id number] Author: Perla ReyesRn) MYRIAM Colon Service: (none) Author Type: Registered Nurse Type: Nursing Progress Note Filed: 07/13/2018 7:55 AM Note Text: PRE OP LEARNING ASSESSMENT PROCEDURE/SURGERY: SURGERY: TAVR READINESS TO LEARN COGNITIVE ABILITY: Alert and oriented MOTIVATION TO LEARN: Eager FAMILY SUPPORT: Moderate - Family present but overwhelmed PATIENT LEARNS BEST BY: Multiple Methods FACTORS AFFECTING LEARNING: None PHYSICAL LIMITATIONS AFFECTING LEARNING: None Electronically Signed By: Perla Colon RN In Department: [id number] NURSING PROG Observed: 07/13/2018 Status: COMPLETED Source: [place] 7:53 AM [facility] REPOSITORY HNO ID: [id number] Author: Perla ReyesRn) MYRIAM Colon Service: (none) Author Type: Registered Nurse Type: Nursing Progress Note Filed: 07/13/2018 7:53 AM Note Text: Family at bedside. OPERATIVE NO Observed: 07/13/2018 Status: COMPLETED Source: [place] 12:00 AM [facility] REPOSITORY HNO ID: [id number] Author: Santo Dobbins Service: Cardiac Surgery Author Type: Physician Type: Operative Report Filed: 07/14/2018 7:57 PM Note Text: [facility] - Cardiothoracic Operative Report [address] [place] [address] [place] JAYDE KYLE : 1950 AGE: 68. SEX: M PATIENT TYPE: I HOSP SVC: ORCA LOCATION: [id number] ATTENDING PHYSICIAN: Santo Dobbins M.D. CSN NUMBER: [id number] DATE OF SURGERY/PROCEDURE: 07/13/2018 PREOPERATIVE DIAGNOSIS: 1. Severe symptomatic aortic stenosis. 2. Atrial fibrillation. 3. High risk for surgical aortic valve replacement due to chronic kidney disease. POSTOPERATIVE DIAGNOSIS: 1. Severe symptomatic aortic stenosis. 2. Atrial fibrillation. 3. High risk for surgical aortic valve replacement due to chronic kidney disease. SURGERY/PROCEDURES: 1. Transcatheter AVR with 29mm Krista S3 valve, R FACILITY WORKER access. 2. Watchman Device Placement (by Cardiology Service). ANESTHESIA: Conscious sedation with Dr. Chandana Malone M.D. Implant Team: INTERVENTIONAL CARDIOLOGY ATTENDING: Vanessa Patel M.D. CARDIOTHORACIC SURGEON: Santo Dobbins M.D. CLIENT SERVICES COORDINATOR PHYSICIANS: 1. Aurelio Fletcher M.D. 2. Dr. Sushma Simons. 3. Poli Machuca M.D. INDICATIONS FOR PROCEDURE: Briefly, the patient is a 68-year-old male, who has been deemed high risk for surgery. He has both atrial fibrillation and severe symptomatic aortic stenosis. TAVR plus Watchman device is planned. He was enrolled in the Watchman study. He was advised of the risks and benefits of the procedure and agreed to proceed. DESCRIPTION OF PROCEDURE: Informed consent was obtained. The patient was brought to the labor union business representative, and a huddle was performed, and he underwent intravenous sedation and monitored anesthesia care. Antibiotics were given. He was prepped and draped in the usual sterile fashion. Vascular access was obtained using sterile Seldinger technique and fluoroscopic guidance. To begin, the right femoral artery was accessed with 8-Tongan sheath superiorly and a 5-Tongan sheath inferiorly. A Perclose was placed in the 8-Tongan sheath site. The common femoral vein was closed with 2 Preclose devices in the 8- Tongan sheath. A temporary pacing wire was placed in the RV via the venous sheath. A straight 5-Tongan flush catheter was placed in the arterial sheath and then placed in the noncoronary cusp of the aortic valve. Right radial access was obtained and a 5/6-Tongan slender sheath was placed in the right radial artery, which allowed a sentinel embolic protection device to be deployed over a Whisper J-wire with protection of the innominate artery and the left carotid artery. Next, attention was turned to the TAVR. The 8-Tongan sheath in the right femoral artery was upsized to a 14-Tongan Bennett eSheath over the Lunderquist wire. Next, a 5-Tongan AL1 catheter was advanced to the aortic root and valve was crossed with a 0.035 inch straight wire. The catheter was used to cross the valve. After which, the straight wire was exchanged for an Amplatz extra stiff J-wire and the Bennett Krista S3 delivery system was then delivered over this wire to the aortic root. Under conditions of rapid ventricular pacing, the 29 mm Bennett Krista S3 valve was deployed with a nominal -1 mL volume. Echo and angiogram showed there was no significant aortic regurgitation. Next, the Cardiology team performed a Watchman procedure. This is dictated on the TAVR procedure report. This was performed without complications. After completion of the Watchman procedure, the arterial and venous sheaths were removed. The Perclose devices were successful for hemostasis. The right radial artery was closed with a Vasc Band. An Angio-Seal was used at the 14-Tongan right femoral arterial site. Manual compression was used at the other sites with good effect. There were no known intraoperative complications. Margaret IzquierdoY:[id number] /[id number] cc: PROGRESS Observed: 07/12/2018 Status: COMPLETED Source: [place] 2:17 PM [facility] REPOSITORY HNO ID: [id number] Author: Marcela (Rn) MYRIAM Ferrer Service: (none) Author Type: Registered Nurse Type: Progress Notes Filed: 07/14/2018 12:01 PM Note Text: Baseline Visit IRB #[id number] WATCH ? TAVR (WATCHMAN for Patients with Atrial Fibrillation Undergoing Transcatheter Aortic Valve Replacement) PI: Dr. Mj Blair I met with the patient for the baseline visit of the WATCH ? TAVR study; his and family was present. Reaffirmed that the patient still wishes to participate in the study and continues to consent to the study. Medications and allergy lists updated and current. Patient was randomized to TAVR/WATCHMAN combined NIHSS: 1a: Mental Status - LOC 0 = Alert and Attentive 1b. LOC Questions 0 = Correct age and month 1c LOC-Commands 0 = Both 2. Gaze 0 = Normal 3. Visual Capps 0 = Full 4. Facial Weakness 0 = Normal 5a. Left Arm 0 = No drift (10 sec) 5b. Right Arm 0 = No drift (10 sec) 6a.. Left Leg 0 = No drift 6b. Right Leg 0 = No drift 7. Ataxia 0 = Absent 8. Sensory 0 = Normal 9. Aphasia 0 = None 10. Dysarthria 0 = Absent 11. Neglect 0 = None NIHSS total = 0 Modified [place] Scale: yes: 0 = No symptoms KCCQ-12 QOL completed: Yes Patient was reminded to take the 81 mg Aspirin the day before the procedure: Yes Thanked patient for participation in the trial and reminded them of their next study visit at pre-discharge. Discussed with the patient the importance of follow up in the study. he verbalized understanding. Patient contact information reaffirmed and updated. Updated coordinator contact information was given to the patient. Education provided: Protocol required tests/procedures and Follow up requirements/schedule Materials dispensed: contact card; parking voucher. Marcela Ferrer RN Pager # [phone] CONFIRM BLOOD TYPE Collected: 07/12/2018 Status: F Source: [place] 12:53 PM [facility] REPOSITORY TYPE CODE TESTS RESULT OUT OF REFERENCE UNITS RANGE LAB %ABR A ABO/RH(D) NEGATIVE Performed By: #### CONABO #### [facility] [address] [place], [place] [address] CNOV Observed: 07/12/2018 Status: COMPLETED Source: [place] 12:30 PM [facility] REPOSITORY Office Visit (CARTMN) JAYDE KYLE ([id number]) 1950 M Date Time Provider Department 07/12/18 12:30 PM ANESTHESIA CLEARANCE CARTMN During your visit today, we recorded the following information about you: Prashant Peacock DO 07/12/2018 10:04 AM [facility]igned [facility] EVALUATION CARDIOTHORACIC ANESTHESIA CARDIAC SURGERY SERVICE DATE: 07/12/2018 SERVICE TIME: 9:17 AM Proposed Surgical Procedure: TAVR Re-do: No ASA Class: 4 Surgeon: Jorge Surgery Date: 07/13/18 Last Wt 05/14/18 : 97.1 kg (214 lb) Last Ht 04/12/18 : 179 cm (5' 10.47) Estimated body mass index is 30.3 kg/m? as calculated from the following: Height as of 04/12/18: 179 cm (5' 10.47). Weight as of 05/14/18: 97.1 kg (214 lb). Estimated body surface area is 2.2 meters squared as calculated from the following: Height as of 04/12/18: 179 cm (5' 10.47). Weight as of 05/14/18: 97.1 kg (214 lb). 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 Zach Howard - COLONOSCOPY 12/30/2016 - EGD BIOPSY SING OR MULT 01/22/2018 - EGD W/ BIOPSY SNGL/MLTPL 12/20/2016 - EGD W/O OR W/BRUSH/WASH 12/2012 EGD - EGD W/O OR W/BRUSH/WASH 04/14/2013 EGD - EGD W/O OR W/BRUSH/WASH 07/19/13 EGD - EGD W/O OR W/BRUSH/WASH 01/22/2018 antral biopsy, GE junction biopsy - HERNIA REPAIR HX umbilical FAMILY HISTORY Problem Relation Age of Onset - Stroke Mother - Stroke Father - other (tia) Father - Heart Brother - Diabetes Sister - Cancer Sister lymphoma x 2 - other (pneumonia) Maternal Grandmother - Stroke Maternal Grandfather - Cancer Paternal Grandfather - Stroke Paternal Grandmother Social History Substance Use Topics - Smoking status: Current Every Day Smoker Packs/day: 2.00 Years: 50.00 Types: Cigarettes, Pipe, Cigars - Smokeless tobacco: Never Used Comment: attempting to quit - Alcohol use No ALLERGIES Allergen Reactions - Seasonal Allergies GI Upset headache REVIEW OF SYSTEMS: Neuro: Negative Respiratory: No history of current cough or dyspnea, or pneumonia in the past 6 weeks. No history of respiratory/pulmonary symptoms or problems Cardiovascular: See HPI GI: No history of GI symptoms or problems. No history of esophageal varices, recent ascites, or ETOH greater than 2 drinks per day. Endocrine: No history of diabetes. Has not taken steroids within the past 30 days. No history of endocrinological symptoms or problems. Hematology: See HPI ANESTHETIC HISTORY: History of general anesthesia without complications. AIRWAY ASSESSMENT: Airway History: No abnormal airway history Airway Exam: General: Normal appearance Mallampati Score: CLASS I Temporo-Mandibular Displacement Test: Position A (lower teeth can be advanced beyond upper teeth) Interincisor Distance: 5 cm Thyromental Distance: 8 cm Neck Circumference: 42 cm Overbite: Yes Cervical Mobility: Some Limitation Facial Hair: Yes, Full Rizo-Yes Head/Neck Pathology: No ANTICIPATED DIFFICULT AIRWAY: NO Pre-Existing Diagnosis of Obstructive Sleep Apnea: Yes, uses home CPAP. Asked patient to bring own device for the postoperative period. PHYSICAL EXAM: VITALS: There were no vitals taken for this visit. CARDIAC: Irregular rate and rhythm LUNGS: Lungs clear to auscultation. Good air entry bilaterally. LABS: Lab Results Past 6 Months Component Value Date HB 14.1 07/12/2018 HCT 43.4 07/12/2018 PLT 180 07/12/2018 WBC 7.38 07/12/2018 NA 138 04/08/2018 K 4.4 04/08/2018 CREAT 0.90 04/08/2018 CREAT 0.98 04/08/2018 CA 9.5 04/08/2018 INR 1.2 07/12/2018 HBA1C 8.2 (H) 04/08/2018 Lab Results Past 6 Months Component Value Date GLUC 129 (H) 04/08/2018 K 4.4 04/08/2018 NA 138 04/08/2018 CHLOR 99 04/08/2018 CO2 29 04/08/2018 CREAT 0.90 04/08/2018 CREAT 0.98 04/08/2018 BUN 15 04/08/2018 ANION 10 04/08/2018 CA 9.5 04/08/2018 TPROT 8.2 (H) 04/08/2018 ALB 4.1 04/08/2018 TBILI 1.5 (H) 04/08/2018 ALKPHOS 71 04/08/2018 AST 21 04/08/2018 ALT 18 04/08/2018 Anticipated Blood Products Ordered: Ordered 2 units of PRBC. Will the Patient Accept Blood: Yes IMAGING AND TESTS: ECHO CONCLUSIONS: - Technically difficult exam due to body habitus. - Exam indication: Routine surveillance of moderate or severe valvular stenosis (>1yr) - The left ventricle is normal in size. Left ventricular systolic function is normal. EF = 55 ? 5% (2D biplane) Definity contrast used for endocardial border detection. Left ventricular diastolic function was not evaluated due to AF. - The right ventricle is normal in size. Right ventricular systolic function is normal. - The left atrial cavity is severely dilated. - The right atrial cavity is severely dilated. - There is moderate (2+) holosystolic mitral valve regurgitation. Regurgitant orifice area (PISA) is 0.24 cm?. - Tricuspid aortic valve. There is low flow, low gradient, moderately severe aortic valve stenosis caused by calcified valve. AV area is 0.50 cm? (0.23 cm?/m?) ?by continuity, VTI. The peak gradient is 45 mmHg, the mean gradient is 27 mmHg and the dimensionless valve index is 0.18. Av gradient averaged today d/t AF rhythm. Prior pk/mn gradients 57/34mmHg - A PFO is noted by color on prior echo as well as clips 103, 122-124 - Exam was compared with the prior CC echocardiographic exam performed on 09/30/2016. There is no significant change. LHC LM - normal LAD - prox < 30% Circ - normal RCA - normal DEVICES: None MEDICATIONS: Current Outpatient Prescriptions: warfarin (COUMADIN) 5 mg tablet Takes 5 mg tablet along with Warfarin 1 mg daily Mon-Wed-Fri warfarin (COUMADIN) 1 mg tablet TAKE 1 TABLET MON, THU, THU warfarin (COUMADIN) 5 mg tablet Take 5 mg by mouth daily as directed. warfarin (COUMADIN) 1 mg tablet Take 1 mg by mouth 3 times a WEEK. diltiazem CD (CARDIZEM CD) 120 mg 24 hr capsule Take 1 capsule by mouth once daily. furosemide (LASIX) 40 mg tablet Take 40 mg by mouth once daily. metFORMIN ER (GLUCOPHAGE XR) 500 mg 24 hr tablet Take 1 tablet by mouth twice daily before meals. GENERIC OKAY COMPOUNDED PRESCRIPTION Organically Bound Minerals COMPOUNDED PRESCRIPTION Cardiotrophin PMG COMPOUNDED PRESCRIPTION Forever Arctic C COMPOUNDED PRESCRIPTION Cataplex E2 No current facility-administered medications for this visit. Is the patient currently on any anticoagulant medications: Yes: Anticoagulant medications the patient is currently on: Coumadin: Last dose: 07/08/2018 This was adequately stopped before surgery: Yes PAIN AND ANXIETY EDUCATION AND MANAGEMENT: Patient has no concerns to address at this time. Additional Comments: I have reviewed the Cardiothoracic Surgical Assessment and agree with its findings. During the course of the encounter the patient was prepared for anesthetic care. This conversation included anesthetic options, possible use of invasive monitoring, the risks, benefits, alternatives, and personnel that will be present for the anesthetic encounter. The patient agreed to proceed with the planned anesthetic. Instructed to take diltiazem with a small sip of water on the morning of surgery. BETA ODILIA COMPLIANCE: Is the Patient Scheduled for a CABG: No SIGNATURE: Prashant Peacock DO PATIENT NAME: Jayde Kyle DATE: July 12, 2018 TIME: 9:17 AM PAGER/CONTACT #: Referring Provider: MJ BLAIR [[id number]] Allergies As of Date: 07/12/2018 Noted Allergy Reaction SEASONAL ALLERGIES 10/04/2012 8 - GI Upset Comments: headache Date Reviewed: 07/12/2018 Reviewed by: Hugo Coleman - Fully Assessed Primary Visit Diagnosis:Encounter for preoperative anesthesiology assessment for cardiac surgery [Z01.818] Prescriptions as of 07/12/2018 Sig: WARFARIN 5 MG TABLET Takes 5 mg tablet along with * WARFARIN 1 MG TABLET TAKE 1 TABLET THU, WED, THU WARFARIN 5 MG TABLET Take 5 mg by mouth daily as d* WARFARIN 1 MG TABLET Take 1 mg by mouth 3 times a * DILTIAZEM SR 120 MG 24 HR CAP Take 1 capsule by mouth once * FUROSEMIDE 40 MG TABLET Take 40 mg by mouth once dalia* METFORMIN ER 500 MG TABLET,EX* Take 1 tablet by mouth twice * COMPOUNDED PRESCRIPTION Organically Bound Minerals COMPOUNDED PRESCRIPTION Cardiotrophin PMG COMPOUNDED PRESCRIPTION Forever Arctic C COMPOUNDED PRESCRIPTION Cataplex E2 Problem List As Of Date 07/12/2018 Noted Resolved 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] INVALID [...] Class I, BMI 30-34.9 [E66.9] INVALID FOR* Phimosis [N47.1] INVALID FOR* Severe aortic stenosis [I35.0] INVALID FOR* Dyslipidemia [E78.5] INVALID FOR* Uncontrolled type 2 diabetes mellitus without c*INVALID FOR* Leg ulcer, left, limited to breakdown of skin (*INVALID FOR* Encounter Status:Closed by PRASHANT PAECOCK DO on 07/12/18 Chart Close Cosign Required by: Zehra Kirk[] PROGRESS Observed: 07/12/2018 Status: COMPLETED Source: [place] 11:42 AM [facility] REPOSITORY HNO ID: [id number] Author: Michelle Banegas Service: (none) Author Type: Nurse Practitioner Type: Progress Notes Filed: 07/12/2018 1:35 PM Note Text: [facility] Department of Cardiovascular Medicine SECTION OF INTERVENTIONAL CARDIOLOGY OUTPATIENT VISIT DATE July 12, 2018 OUTPATIENT VISIT TYPE ESTABLISHED PRIMARY CARE PHYSICIAN: Macho Solorio DO [address] [place] [address] CHIEF COMPLAINT: Patient presents with: TAVR HISTORY OF PRESENT ILLNESS: Mr. Kyle is a 68 year old male who presents today for follow-up visit for pre op TAVR, scheduled for 07/13/2018. He was seen by Dr. Goldsmith 04/2018. PMH significant for tobacco use (100pack year), HTN (dilt 120), HLD, CHF (lasix 40mg Qday), DM (controlled with weight loss, now on metformin), AF (on AC and BB). He reports having BRUCE and fatigue as his main issues. He does have occasional leg swelling and uses compression stockings. Denies having chest pain, orthopnea, palpitations and lightheadedness. He denies having ED visits or hospitalizations. 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 Zach Howard - COLONOSCOPY 12/30/2016 - EGD BIOPSY SING OR MULT 01/22/2018 - EGD W/ BIOPSY SNGL/MLTPL 12/20/2016 - EGD W/O OR W/BRUSH/WASH 12/2012 EGD - EGD W/O OR W/BRUSH/WASH 04/14/2013 EGD - EGD W/O OR W/BRUSH/WASH 07/19/13 EGD - EGD W/O OR W/BRUSH/WASH 01/22/2018 antral biopsy, GE junction biopsy - HERNIA REPAIR HX umbilical SOCIAL HISTORY Social History Substance Use Topics - Smoking status: Current Some Day Smoker Packs/day: 2.00 Years: 50.00 Types: Cigarettes, Pipe, Cigars - Smokeless tobacco: Never Used Comment: attempting to quit - Alcohol use No FAMILY HISTORY Problem Relation Age of Onset - Stroke Mother - Stroke Father - other (tia) Father - Heart Brother - Diabetes Sister - Cancer Sister lymphoma x 2 - other (pneumonia) Maternal Grandmother - Stroke Maternal Grandfather - Cancer Paternal Grandfather - Stroke Paternal Grandmother ALLERGIES: ALLERGIES Allergen Reactions - Seasonal Allergies GI Upset headache MEDICATIONS: warfarin (COUMADIN) 5 mg tablet Takes 5 mg tablet along with Warfarin 1 mg daily Thu-Thu-Thu warfarin (COUMADIN) 1 mg tablet TAKE 1 TABLET THU, THU, THU warfarin (COUMADIN) 5 mg tablet Take 5 mg by mouth daily as directed. warfarin (COUMADIN) 1 mg tablet Take 1 mg by mouth 3 times a WEEK. diltiazem CD (CARDIZEM CD) 120 mg 24 hr capsule Take 1 capsule by mouth once daily. furosemide (LASIX) 40 mg tablet Take 40 mg by mouth once daily. metFORMIN ER (GLUCOPHAGE XR) 500 mg 24 hr tablet Take 1 tablet by mouth twice daily before meals. GENERIC OKAY COMPOUNDED PRESCRIPTION Organically Bound Minerals COMPOUNDED PRESCRIPTION Cardiotrophin PMG COMPOUNDED PRESCRIPTION Forever Arctic C COMPOUNDED PRESCRIPTION Cataplex E2 REVIEW OF SYSTEMS: General, constitutional: Weight loss or gain- No, Fever or chills-No, Weakness-No, Trouble sleeping-No. Head, Eyes, Ears, Mouth: Headache, head injury-No, Glasses or contact lenses-No, Pain-No, Impaired vision-No, Decreased hearing- No, Ringing in ears-No, Nose bleeds-No, Dental difficulties-No, Bleeding gums-No, Dentures-No. Neck: Swelling-No, Pain-No, Stiffness-No. Respiratory: Cough-No, Spitting up blood-No, Shortness of breath-No, Wheezing or asthma-No. Musculoskeletal: Muscle or joint pain or stiffness-No, Joint swelling-No. Gastrointestinal: Difficulty swallowing-No, Heartburn-No, Change in bowel habits-No, Blood in stool, Dark black stools-No. Neurological/Psychiatric: Weakness, paralysis-No, Numbness-No, Tingling-No, Tremor-No, Nervousness or anxiety-No, Depressed mood-No, Memory loss-No. Skin: Rash-No, Itching-No. Hematological: Easy bruising-No, Easy bleeding-No. Endocrine: Heat or cold intolerance-No, Excessive sweating- No, Frequent urination-No, Frequent thirst-No. PHYSICAL EXAMINATION: BP 120/74 Pulse 107 Ht 177.8 cm (5' 10) Wt 95.7 kg (211 lb) BMI 30.28 kg/m? General: no distress Neck : Neck veins are not distended, no carotid bruits Cardiac: Rhythm: irregularly irregular Rate: tachycardia, + murmur Chest: Chest clear to percussion and auscultation, Abdomen: Palpation: soft, Bowel Sounds: Present Extremities: trace LE edema bilterally Pulses: posterior tibial pulses present both CARDIOVASCULAR MEDICINE TESTING: Electrocardiogram: AF with RVR, 107 bpm. CTA: 1. ?Trileaflet aortic valve with severe leaflet calcifications. Details of anatomy and calcification are described above. 2. ?The thoracic aorta is tortuous distally. ?Mild ectasia of mid ascending aorta noted, measuring 4.0 cm (area 11.8 cm2). The reminder of the thoracic and abdominal aorta is normal in caliber. ?No acute aortic pathology identified. ?The pelvic arteries, including the common femoral arteries are mildly tortuous, with normal caliber and mild calcific wall changes. ?The minimal luminal caliber throughout = 7 mm in both common femoral arteries. 3. Few small (<5 mm) lung nodules noted, most of which are unchanged. 4. ?Ectopic right pelvic kidney. IMPRESSION: Mr. Kyle is a 68 year old male who presents today for follow-up visit for pre op TAVR, scheduled for 07/13/2018. He was seen by Dr. Goldsmith 04/2018. PLAN AND RECOMMENDATIONS: Severe - scheduled for S3 TF TAVR on 07/13/2018. Advised to arrive at 7:30 am to desk J1-2 on 07/13. HTN- stable on Diltiazem. Advised to continue same. AF- asymptomatic. On warfarin. Has been holding since 07/08. DM - controlled with weight loss and now on metformin. Reports stable control. CONTACT INFORMATION: Michelle Banegas APRN.PLAY WRITER STRUCTURAL PREPROCEDURE CHECKLIST Informed consent Yes Updated history and physical within 30 days Yes Labs- Type and Screen within 30 days Yes Labs (CBC, BMP, PT INR, PTT) within 60 days Yes Pacemaker/Device check if not done in the last six months (if applicable) N/a EKG within 90 days Yes 15 minute walk test (TAVR/TMVR/Mitral Clip) Yes Anesthesia clearance Yes 2 surgeons note Yes Dental clearance verified (if applicable) N/A full dentures Component Latest Ref Rng AND Units 07/12/2018 WBC 3.70 - 11.00 k/uL 7.38 RBC 4.20 - 6.00 m/uL 4.35 Hemoglobin 13.0 - 17.0 g/dL 14.1 Hematocrit 39.0 - 51.0 % 43.4 MCV 80.0 - 100.0 fL 99.8 MCH 26.0 - 34.0 pG 32.4 MCHC 30.5 - 36.0 g/dL 32.5 RDW-CV 11.5 - 15.0 % 14.6 Platelet Count 150 - 400 k/uL 180 MPV 9.0 - 12.7 fL 11.8 Absolute nRBC <0.01 k/uL <0.01 INR (POCT) 0.8 - 1.2 Internal Quality Check PT Sec 9.7 - 13.0 sec 12.4 PT INR 0.9 - 1.3 1.2 Component Latest Ref Rng AND Units 07/12/2018 Glucose 74 - 99 mg/dL 166 (H) BUN 9 - 24 mg/dL 16 Creatinine 0.73 - 1.22 mg/dL 0.86 Sodium 136 - 144 mmol/L 137 Potassium 3.7 - 5.1 mmol/L 4.5 Chloride 97 - 105 mmol/L 96 (L) CO2 22 - 30 mmol/L 32 (H) Anion Gap 9 - 18 mmol/L 9 Calcium 8.5 - 10.2 mg/dL 9.3 eGFR- >60 eGFR-All Other Races . >60 CNNURSE Observed: 07/12/2018 Status: COMPLETED Source: [place] 11:30 AM [facility] REPOSITORY Nurse Visit (CATHMN) JAYDE KYLE ([id number]) 1950 M Date Time Provider Department 07/12/18 11:30 AM RESEARCH NURSE CARD INTERVENTION [facility]NCATHMN During your visit today, we recorded the following information about you: Marcela Ferrer RN, RN 07/14/2018 12:01 PM Signed Baseline Visit IRB #[id number] WATCH ? TAVR (WATCHMAN for Patients with Atrial Fibrillation Undergoing Transcatheter Aortic Valve Replacement) PI: Dr. Mj Blair I met with the patient for the baseline visit of the WATCH ? TAVR study; his and family was present. Reaffirmed that the patient still wishes to participate in the study and continues to consent to the study. Medications and allergy lists updated and current. Patient was randomized to TAVR/WATCHMAN combined NIHSS: 1a: Mental Status - LOC 0 = Alert and Attentive 1b. LOC Questions 0 = Correct age and month 1c LOC-Commands 0 = Both 2. Gaze 0 = Normal 3. Visual Capps 0 = Full 4. Facial Weakness 0 = Normal 5a. Left Arm 0 = No drift (10 sec) 5b. Right Arm 0 = No drift (10 sec) 6a.. Left Leg 0 = No drift 6b. Right Leg 0 = No drift 7. Ataxia 0 = Absent 8. Sensory 0 = Normal 9. Aphasia 0 = None 10. Dysarthria 0 = Absent 11. Neglect 0 = None NIHSS total = 0 Modified [place] Scale: yes: 0 = No symptoms KCCQ-12 QOL completed: Yes Patient was reminded to take the 81 mg Aspirin the day before the procedure: Yes Thanked patient for participation in the trial and reminded them of their next study visit at pre-discharge. Discussed with the patient the importance of follow up in the study. he verbalized understanding. Patient contact information reaffirmed and updated. Updated coordinator contact information was given to the patient. Education provided: Protocol required tests/procedures and Follow up requirements/schedule Materials dispensed: contact card; parking voucher. Marcela Ferrer RN Pager # [phone] Referring Provider: MJ BLAIR [[id number]] Allergies As of Date: 07/12/2018 Noted Allergy Reaction SEASONAL ALLERGIES 10/04/2012 8 - GI Upset Comments: headache Date Reviewed: 07/12/2018 Reviewed by: Michelle Banegas - Fully Assessed Reason for Visit: Research [[id number]] Cmt: IRB #[id number] WATCH ? TAVR Baseline Reason For Visit History Recorded Primary Visit Diagnosis:Research exam Baseline Visit [Z00.6] Prescriptions as of 07/12/2018 Sig: METFORMIN ER 500 MG TABLET,EX* Take 1 tablet by mouth twice * WARFARIN 1 MG TABLET TAKE 1 TABLET MON, THU, THU WARFARIN 5 MG TABLET Takes 5 mg tablet along with * X COMPOUNDED PRESCRIPTION Organically Bound Minerals X COMPOUNDED PRESCRIPTION Cardiotrophin PMG X COMPOUNDED PRESCRIPTION Forever Arctic C X COMPOUNDED PRESCRIPTION Cataplex E2 X DILTIAZEM SR 120 MG 24 HR CAP Take 1 capsule by mouth once * X FUROSEMIDE 40 MG TABLET Take 40 mg by mouth once dalia* X WARFARIN 1 MG TABLET Take 1 mg by mouth 3 times a * X WARFARIN 5 MG TABLET Take 5 mg by mouth daily as d* Problem List As Of Date 07/12/2018 Noted Resolved 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 Diabetes mellitus type 2 in nonobese (HCC) [E11*INVALID FOR*07/12/2018 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*INVALID FOR*07/06/2014 CHF (congestive heart failure) (HCC) [I50.9] INVALID FOR*07/12/2018 Aortic stenosis [I35.0] INVALID FOR* More... History of gastric cancer [Z85.028] INVALID FOR*07/12/2018 Chronic atrial fibrillation (HCC) [I48.2] INVALID FOR* Chronic diastolic congestive heart failure (HCC*INVALID FOR*07/12/2018 Nonrheumatic aortic valve stenosis [I35.0] INVALID FOR*07/12/2018 Positive for macroalbuminuria [R80.9] INVALID FOR* Screening for intestinal cancer [Z12.10] INVALID FOR* 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*INVALID FOR* Bilateral leg edema [R60.0] INVALID FOR* Varicose veins of both legs with edema [I83.893]INVALID FOR* Chronic anticoagulation [Z79.01] INVALID FOR* Aortic valve stenosis [I35.0] INVALID FOR*07/12/2018 Cough [R05] INVALID FOR* Obesity, Class I, BMI 30-34.9 [E66.9] INVALID FOR* Phimosis [N47.1] INVALID FOR* Severe aortic stenosis [I35.0] INVALID FOR* Dyslipidemia [E78.5] INVALID FOR* Uncontrolled type 2 diabetes mellitus without c*INVALID FOR* Leg ulcer, left, limited to breakdown of skin (*INVALID FOR*07/12/2018 Encounter Status:Closed by MARCELA FERRER on 07/14/18 CNOV Observed: 07/12/2018 Status: COMPLETED Source: [place] 11:00 AM [facility] REPOSIT[facility] Office Visit (CATHMN) ANABELLA,JONAS Blade ([id number]) 1950 M Date Time Provider Department 07/12/18 11:00 AM [facility] During your visit today, we recorded the following information about you: Pulse Blood pressure Weight Height 107/minute 120/74 95.7 kg 1.778 m Michelle Banegas APRN.CNP 07/12/2018 1:35 PM Signed [facility] Department of Cardiovascular Medicine SECTION OF INTERVENTIONAL CARDIOLOGY OUTPATIENT VISIT DATE July 12, 2018 OUTPATIENT VISIT TYPE ESTABLISHED PRIMARY CARE PHYSICIAN: Macho Solorio DO [address] [place] [address] CHIEF COMPLAINT: Patient presents with: TAVR HISTORY OF PRESENT ILLNESS: Mr. Kyle is a 68 year old male who presents today for follow-up visit for pre op TAVR, scheduled for 07/13/2018. He was seen by Dr. Goldsmith 04/2018. PMH significant for tobacco use (100pack year), HTN (dilt 120), HLD, CHF (lasix 40mg Qday), DM (controlled with weight loss, now on metformin), AF (on AC and BB). He reports having BRUCE and fatigue as his main issues. He does have occasional leg swelling and uses compression stockings. Denies having chest pain, orthopnea, palpitations and lightheadedness. He denies having ED visits or hospitalizations. 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 Zach Howard - COLONOSCOPY 12/30/2016 - EGD BIOPSY SING OR MULT 01/22/2018 - EGD W/ BIOPSY SNGL/MLTPL 12/20/2016 - EGD W/O OR W/BRUSH/WASH 12/2012 EGD - EGD W/O OR W/BRUSH/WASH 04/14/2013 EGD - EGD W/O OR W/BRUSH/WASH 07/19/13 EGD - EGD W/O OR W/BRUSH/WASH 01/22/2018 antral biopsy, GE junction biopsy - HERNIA REPAIR HX umbilical SOCIAL HISTORY Social History Substance Use Topics - Smoking status: Current Some Day Smoker Packs/day: 2.00 Years: 50.00 Types: Cigarettes, Pipe, Cigars - Smokeless tobacco: Never Used Comment: attempting to quit - Alcohol use No FAMILY HISTORY Problem Relation Age of Onset - Stroke Mother - Stroke Father - other (tia) Father - Heart Brother - Diabetes Sister - Cancer Sister lymphoma x 2 - other (pneumonia) Maternal Grandmother - Stroke Maternal Grandfather - Cancer Paternal Grandfather - Stroke Paternal Grandmother ALLERGIES: ALLERGIES Allergen Reactions - Seasonal Allergies GI Upset headache MEDICATIONS: warfarin (COUMADIN) 5 mg tablet Takes 5 mg tablet along with Warfarin 1 mg daily Thu-Thu-Thu warfarin (COUMADIN) 1 mg tablet TAKE 1 TABLET THU, THU, THU warfarin (COUMADIN) 5 mg tablet Take 5 mg by mouth daily as directed. warfarin (COUMADIN) 1 mg tablet Take 1 mg by mouth 3 times a WEEK. diltiazem CD (CARDIZEM CD) 120 mg 24 hr capsule Take 1 capsule by mouth once daily. furosemide (LASIX) 40 mg tablet Take 40 mg by mouth once daily. metFORMIN ER (GLUCOPHAGE XR) 500 mg 24 hr tablet Take 1 tablet by mouth twice daily before meals. GENERIC OKAY COMPOUNDED PRESCRIPTION Organically Bound Minerals COMPOUNDED PRESCRIPTION Cardiotrophin PMG COMPOUNDED PRESCRIPTION Forever Arctic C COMPOUNDED PRESCRIPTION Cataplex E2 REVIEW OF SYSTEMS: General, constitutional: Weight loss or gain- No, Fever or chills-No, Weakness-No, Trouble sleeping-No. Head, Eyes, Ears, Mouth: Headache, head injury-No, Glasses or contact lenses-No, Pain-No, Impaired vision-No, Decreased hearing- No, Ringing in ears-No, Nose bleeds-No, Dental difficulties-No, Bleeding gums-No, Dentures-No. Neck: Swelling-No, Pain-No, Stiffness-No. Respiratory: Cough-No, Spitting up blood-No, Shortness of breath-No, Wheezing or asthma-No. Musculoskeletal: Muscle or joint pain or stiffness-No, Joint swelling-No. Gastrointestinal: Difficulty swallowing-No, Heartburn-No, Change in bowel habits-No, Blood in stool, Dark black stools-No. Neurological/Psychiatric: Weakness, paralysis-No, Numbness- No, Tingling-No, Tremor-No, Nervousness or anxiety-No, Depressed mood-No, Memory loss-No. Skin: Rash-No, Itching-No. Hematological: Easy bruising-No, Easy bleeding-No. Endocrine: Heat or cold intolerance-No, Excessive sweating- No, Frequent urination-No, Frequent thirst-No. PHYSICAL EXAMINATION: BP 120/74 Pulse 107 Ht 177.8 cm (5' 10) Wt 95.7 kg (211 lb) BMI 30.28 kg/m? General: no distress Neck : Neck veins are not distended, no carotid bruits Cardiac: Rhythm: irregularly irregular Rate: tachycardia, + murmur Chest: Chest clear to percussion and auscultation, Abdomen: Palpation: soft, Bowel Sounds: Present Extremities: trace LE edema bilterally Pulses: posterior tibial pulses present both CARDIOVASCULAR MEDICINE TESTING: Electrocardiogram: AF with RVR, 107 bpm. CTA: 1. ?Trileaflet aortic valve with severe leaflet calcifications. Details of anatomy and calcification are described above. 2. ?The thoracic aorta is tortuous distally. ?Mild ectasia of mid ascending aorta noted, measuring 4.0 cm (area 11.8 cm2). The reminder of the thoracic and abdominal aorta is normal in caliber. ?No acute aortic pathology identified. ?The pelvic arteries, including the common femoral arteries are mildly tortuous, with normal caliber and mild calcific wall changes. ?The minimal luminal caliber throughout = 7 mm in both common femoral arteries. 3. Few small (<5 mm) lung nodules noted, most of which are unchanged. 4. ?Ectopic right pelvic kidney. IMPRESSION: Mr. Kyle is a 68 year old male who presents today for follow-up visit for pre op TAVR, scheduled for 07/13/2018. He was seen by Dr. Goldsmith 04/2018. PLAN AND RECOMMENDATIONS: Severe - scheduled for S3 TF TAVR on 07/13/2018. Advised to arrive at 7:30 am to desk J1-2 on 07/13. HTN- stable on Diltiazem. Advised to continue same. AF- asymptomatic. On warfarin. Has been holding since 07/08. DM - controlled with weight loss and now on metformin. Reports stable control. CONTACT INFORMATION: Michelle Banegas APRN.PLAY WRITER STRUCTURAL PREPROCEDURE CHECKLIST Informed consent Yes Updated history and physical within 30 days Yes Labs- Type and Screen within 30 days Yes Labs (CBC, BMP, PT INR, PTT) within 60 days Yes Pacemaker/Device check if not done in the last six months (if applicable) N/a EKG within 90 days Yes 15 minute walk test (TAVR/TMVR/Mitral Clip) Yes Anesthesia clearance Yes 2 surgeons note Yes Dental clearance verified (if applicable) N/A full dentures Component Latest Ref Rng AND Units 07/12/2018 WBC 3.70 - 11.00 k/uL 7.38 RBC 4.20 - 6.00 m/uL 4.35 Hemoglobin 13.0 - 17.0 g/dL 14.1 Hematocrit 39.0 - 51.0 % 43.4 MCV 80.0 - 100.0 fL 99.8 MCH 26.0 - 34.0 pG 32.4 MCHC 30.5 - 36.0 g/dL 32.5 RDW-CV 11.5 - 15.0 % 14.6 Platelet Count 150 - 400 k/uL 180 MPV 9.0 - 12.7 fL 11.8 Absolute nRBC <0.01 k/uL <0.01 INR (POCT) 0.8 - 1.2 Internal Quality Check PT Sec 9.7 - 13.0 sec 12.4 PT INR 0.9 - 1.3 1.2 Component Latest Ref Rng AND Units 07/12/2018 Glucose 74 - 99 mg/dL 166 (H) BUN 9 - 24 mg/dL 16 Creatinine 0.73 - 1.22 mg/dL 0.86 Sodium 136 - 144 mmol/L 137 Potassium 3.7 - 5.1 mmol/L 4.5 Chloride 97 - 105 mmol/L 96 (L) CO2 22 - 30 mmol/L 32 (H) Anion Gap 9 - 18 mmol/L 9 Calcium 8.5 - 10.2 mg/dL 9.3 eGFR- >60 eGFR-All Other Races . >60 Michelle Banegas APRN.CNP 07/12/2018 1:38 PM Signed Please arrive at 7:30 am to desk J1-2 on Thursday07/13/2018. Michelle Banegas APRN.CNP 07/12/2018 3:03 PM Signed Addended by: MICHELLE BANEGAS CNP on: 07/12/2018 03:03 PM Modules accepted: Orders Referring Provider: MJ BLAIR [[id number]] Allergies As of Date: 07/12/2018 Noted Allergy Reaction SEASONAL ALLERGIES 10/04/2012 8 - GI Upset Comments: headache Date Reviewed: 07/12/2018 Reviewed by: Michelle Banegas - Fully Assessed Reason for Visit: TAVR [Other] Primary Visit Diagnosis:Nonrheumatic aortic valve stenosis [I35.0] Other Visit Diagnoses:Chronic atrial fibrillation (HCC) [I48.2] Essential hypertension [I10] Order(s):aspirin, enteric coated (ECOTRIN LOW STRENGTH) 81 mg EC tabletTake 1 tablet by mouth once daily.Disp: Rfl: Prescriptions as of 07/12/2018 Sig: WARFARIN 5 MG TABLET Takes 5 mg tablet along with * WARFARIN 1 MG TABLET TAKE 1 TABLET MON, WED, FRI WARFARIN 5 MG TABLET Take 5 mg by mouth daily as d* WARFARIN 1 MG TABLET Take 1 mg by mouth 3 times a * DILTIAZEM SR 120 MG 24 HR CAP Take 1 capsule by mouth once * FUROSEMIDE 40 MG TABLET Take 40 mg by mouth once dalia* METFORMIN ER 500 MG TABLET,EX* Take 1 tablet by mouth twice * COMPOUNDED PRESCRIPTION Organically Bound Minerals COMPOUNDED PRESCRIPTION Cardiotrophin PMG COMPOUNDED PRESCRIPTION Forever Arctic C COMPOUNDED PRESCRIPTION Cataplex E2 ASPIRIN 81 MG TABLET,DELAYED * Take 1 tablet by mouth once d* Problem List As Of Date 07/12/2018 Noted Resolved 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] INVALID FOR* Drug induced neutropenia [D70.2] INVALID FOR*11/23/2012 Atrial fibrillation [I48.91] INVALID FOR* 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] INVALID FOR* Hypercholesteremia [E78.00] INVALID FOR* Diabetes mellitus type 2 in nonobese (HCC) [E11*INVALID FOR*07/12/2018 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*INVALID FOR*07/06/2014 CHF (congestive heart failure) (HCC) [I50.9] INVALID FOR*07/12/2018 Aortic stenosis [I35.0] INVALID FOR* History of gastric cancer [Z85.028] INVALID FOR*07/12/2018 Chronic atrial fibrillation (HCC) [I48.2] INVALID FOR* Chronic diastolic congestive heart failure (HCC*INVALID FOR*07/12/2018 Nonrheumatic aortic valve stenosis [I35.0] INVALID FOR*07/12/2018 Positive for macroalbuminuria [R80.9] INVALID FOR* Screening for intestinal cancer [Z12.10] INVALID FOR* 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*INVALID FOR* Bilateral leg edema [R60.0] INVALID FOR* Varicose veins of both legs with edema [I83.893]INVALID FOR* Chronic anticoagulation [Z79.01] INVALID FOR* Aortic valve stenosis [I35.0] INVALID FOR*07/12/2018 Cough [R05] INVALID FOR* Obesity, Class I, BMI 30-34.9 [E66.9] INVALID FOR* Phimosis [N47.1] INVALID FOR* Severe aortic stenosis [I35.0] INVALID FOR* Dyslipidemia [E78.5] INVALID FOR* Uncontrolled type 2 diabetes mellitus without c*INVALID FOR* Leg ulcer, left, limited to breakdown of skin (*INVALID FOR*07/12/2018 Other instructions from your clinician: Please arrive at 7:30 am to desk J1-2 on Thursday07/13/2018. Prescriptions ordered this encounter Disp Refills Start End ASPIRIN 81 MG TABLET,DELAYED RELEASE 07/12/2018 Class: OTC Route: ORAL Sig: Take 1 tablet by mouth once daily. Disposition: Return for scheduled. Follow-up and Disposition History Recorded Encounter Status:Closed by MICHELLE BANEGAS CNP on 07/12/18 PROGRESS Observed: 07/12/2018 Status: COMPLETED Source: [place] 10:14 AM [facility] REPOSITORY HNO ID: [id number] Author: Madison Gregory Service: (none) Author Type: Physician Type: Progress Notes Filed: 07/12/2018 5:30 PM Note Text: [facility] Department of Cardiovascular Medicine SECTION OF CLINICAL CARDIOLOGY OUTPATIENT VISIT DATE July 12, 2018 OUTPATIENT VISIT TYPE ESTABLISHED PRIMARY CARE PHYSICIAN: Macho Solorio DO [address] [place] [address] CHIEF COMPLAINT: No chief complaint on file. HISTORY OF PRESENT ILLNESS: Mr. Kyle is a 68 year old male who presents today for a cardiovascular medicine follow-up visit . NURSING INTAKE Mr Kyle is a 68 year old male here today for cardiovascular medicine evaluation. He has a medical history significant for: -Aortic stenosis -Esophageal cancer s/p chemo/radiation -hypertension -hyperlipidemia -CHF -DM -Afib -smoker He was last seen in the office on 04/08/[address] Goldsmith for pre TAVR evaluation. Mr Kyle is scheduled for TAVR on 07/13/18. 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 Zach Howard - COLONOSCOPY 12/30/2016 - EGD BIOPSY SING OR MULT 01/22/2018 - EGD W/ BIOPSY SNGL/MLTPL 12/20/2016 - EGD W/O OR W/BRUSH/WASH 12/2012 EGD - EGD W/O OR W/BRUSH/WASH 04/14/2013 EGD - EGD W/O OR W/BRUSH/WASH 07/19/13 EGD - EGD W/O OR W/BRUSH/WASH 01/22/2018 antral biopsy, GE junction biopsy - HERNIA REPAIR HX umbilical SOCIAL HISTORY Social History Substance Use Topics - Smoking status: Current Some Day Smoker Packs/day: 2.00 Years: 50.00 Types: Cigarettes, Pipe, Cigars - Smokeless tobacco: Never Used Comment: attempting to quit - Alcohol use No FAMILY HISTORY Problem Relation Age of Onset - Stroke Mother - Stroke Father - other (tia) Father - Heart Brother - Diabetes Sister - Cancer Sister lymphoma x 2 - other (pneumonia) Maternal Grandmother - Stroke Maternal Grandfather - Cancer Paternal Grandfather - Stroke Paternal Grandmother ALLERGIES: ALLERGIES Allergen Reactions - Seasonal Allergies GI Upset headache MEDICATIONS: diltiazem CD (CARDIZEM CD) 120 mg 24 hr capsule Take 1 capsule by mouth once daily. furosemide (LASIX) 40 mg tablet Take 40 mg by mouth once daily. metFORMIN ER (GLUCOPHAGE XR) 500 mg 24 hr tablet Take 1 tablet by mouth twice daily before meals. GENERIC OKAY COMPOUNDED PRESCRIPTION Organically Bound Minerals COMPOUNDED PRESCRIPTION Cardiotrophin PMG COMPOUNDED PRESCRIPTION Forever Arctic C COMPOUNDED PRESCRIPTION Cataplex E2 warfarin (COUMADIN) 5 mg tablet Takes 5 mg tablet along with Warfarin 1 mg daily Thu-Thu-Thu warfarin (COUMADIN) 1 mg tablet TAKE 1 TABLET THU, THU, THU warfarin (COUMADIN) 5 mg tablet Take 5 mg by mouth daily as directed. warfarin (COUMADIN) 1 mg tablet Take 1 mg by mouth 3 times a WEEK. REVIEW OF SYSTEMS: positives in bold GENERAL: Negative for: Weight loss or gain, Fever or Chills, Weakness and Sleep difficulties. HEENT: Negative for: Headache, Impaired Vision, Glasses, Hearing Impairment, Ringing in Ears, Nosebleeds, Poor dental care, Bleeding Gums, Dentures NECK: Negative for: Swelling, Pain, Stiffness RESPIRATORY: Negative for: Cough, Blood in Sputum, Shortness of breath, Wheezing, Apnea GASTROINTESTINAL: Negative for: Trouble swallowing, Heartburn, Change in bowel habits, Blood in stool, Dark black stools MUSCULOSKELETAL: Negative for: Muscle or joint pain, Stiffness , Joint swelling NEUROLOGIC/PSYCHIATRIC: Negative for: Weakness, Paralysis, Numbness, Tingling, Tremor, Nervousness, Depressed mood, Memory loss SKIN: Negative for: Rashes, Itching HEMATOLOGICAL/LYMPHATIC: Negative for: Easy bruising , Easy bleeding ENDOCRINE: Negative for: Heat or cold intolerance, Excessive sweating, Frequent urination, Frequent thirst PHYSICAL EXAMINATION: BP 119/89 (BP Site: Left Arm, BP Cuff Size: Regular Adult) Pulse 118 Resp 14 Ht 177.8 cm (5' 10) Wt 97.1 kg (214 lb) SpO2 98% BMI 30.71 kg/m? General: Well appearing, in no acute distress. Skin: No clubbing, no cyanosis. Eyes: no icterus Neck: No jugular venous distention, no carotid bruits, carotids have a normal upstroke, no palpable thyromegaly. Lungs: Clear to auscultation bilaterally, no wheezing or rhonchi. Heart: irregularly irregular Systolic murmur 10/06 Abdomen: Soft, nontender, bowel sounds normal, no palpable organomegaly, no bruits. Extremities: No peripheral edema . Grade 2/4 distal pulses bilaterally. Neuro: Oriented to person, place and time, alert, cooperative, gait coordinated. CARDIOVASCULAR MEDICINE TESTING: Electrocardiogram: CTA CHEST/ABD/PEL (GATED) W IVCON 04/08/18 IMPRESSION: 1. ?Trileaflet aortic valve with severe leaflet calcifications. Details of anatomy and calcification are described above. 2. ?The thoracic aorta is tortuous distally. ?Mild ectasia of mid ascending aorta noted, measuring 4.0 cm (area 11.8 cm2). The reminder of the thoracic and abdominal aorta is normal in caliber. ?No acute aortic pathology identified. ?The pelvic arteries, including the common femoral arteries are mildly tortuous, with normal caliber and mild calcific wall changes. ?The minimal luminal caliber throughout = 7 mm in both common femoral arteries. 3. Few small (<5 mm) lung nodules noted, most of which are unchanged. 4. ?Ectopic right pelvic kidney. ECHO 04/08/18 CONCLUSIONS: - Technically difficult exam due to body habitus. - Exam indication: Routine surveillance of moderate or severe valvular stenosis (>1yr) - The left ventricle is normal in size. Left ventricular systolic function is normal. EF = 55 ? 5% (2D biplane) Definity contrast used for endocardial border detection. Left ventricular diastolic function was not evaluated due to AF. - The right ventricle is normal in size. Right ventricular systolic function is normal. - The left atrial cavity is severely dilated. - The right atrial cavity is severely dilated. - There is moderate (2+) holosystolic mitral valve regurgitation. Regurgitant orifice area (PISA) is 0.24 cm?. - Tricuspid aortic valve. There is low flow, low gradient, moderately severe aortic valve stenosis caused by calcified valve. AV area is 0.50 cm? (0.23 cm?/m?) ?by continuity, VTI. The peak gradient is 45 mmHg, the mean gradient is 27 mmHg and the dimensionless valve index is 0.18. Av gradient averaged today d/t AF rhythm. Prior pk/mn gradients 57/34mmHg - A PFO is noted by color on prior echo as well as clips 103, 122-124 - Exam was compared with the prior CC echocardiographic exam performed on 09/30/2016. There is no significant change. Component Latest Ref Rng AND Units 04/08/2018 07/12/2018 WBC 3.70 - 11.00 k/uL 6.67 7.38 RBC 4.20 - 6.00 m/uL 4.36 4.35 Hemoglobin 13.0 - 17.0 g/dL 14.2 14.1 Hematocrit 39.0 - 51.0 % 42.7 43.4 MCV 80.0 - 100.0 fL 97.9 99.8 MCH 26.0 - 34.0 pG 32.6 32.4 MCHC 30.5 - 36.0 g/dL 33.3 32.5 RDW-CV 11.5 - 15.0 % 15.3 (H) 14.6 Platelet Count 150 - 400 k/uL 180 180 MPV 9.0 - 12.7 fL 12.4 11.8 Neut% % 59.2 Abs Neut (ANC) 1.45 - 7.50 k/uL 3.92 Lymph% % 25.3 Abs Lymph 1.00 - 4.00 k/uL 1.69 Howard% % 11.5 Abs Howard <0.87 k/uL 0.77 Eosin% % 3.1 Abs Eosin <0.46 k/uL 0.21 Baso% % 0.9 Abs Baso <0.11 k/uL 0.06 Nucleated Reds 0 /100 WBC 0.0 Absolute nRBC <0.01 k/uL <0.01 <0.01 Diff Type Auto Diff Protein, Total 6.3 - 8.0 g/dL 8.2 (H) Albumin 3.9 - 4.9 g/dL 4.1 Calcium 8.5 - 10.2 mg/dL 9.5 Bilirubin, Total 0.2 - 1.3 mg/dL 1.5 (H) Alkaline Phosphatase 36 - 108 U/L 71 AST 14 - 40 U/L 21 Glucose 74 - 99 mg/dL 129 (H) BUN 9 - 24 mg/dL 15 Creatinine 0.73 - 1.22 mg/dL 0.98 Sodium 136 - 144 mmol/L 138 Potassium 3.7 - 5.1 mmol/L 4.4 Chloride 97 - 105 mmol/L 99 CO2 22 - 30 mmol/L 29 Anion Gap 9 - 18 mmol/L 10 ALT 10 - 54 U/L 18 eGFR- >60 eGFR-All Other Races . >60 Hemoglobin A1C 4.3 - 5.6 % 8.2 (H) Estimated Average Glucose mg/dL 189 PT Sec 9.7 - 13.0 sec 12.4 PT INR 0.9 - 1.3 1.2 NT Pro BNP <125 pg/mL 978 (H) I have personally reviewed the Electrocardiogram, Laboratory Testing and Echocardiogram. IMPRESSION: Mr. Kyle is a 68 year old male with h/o esophageal cancer treated with radiation and chemotherapy 2014. Also h/o chronic afib since 2009 on AC with warfarin. Now with severe symptomatic likely exacerbated by radiation therapy Was seen by my colleague Dr Goldsmith in the past and considered for TAVR The patient has mitral anular calcification. He underwent a comprehensive workup for TAVR including CTA [facility] 12/29/2017 (report available) He was recently evaluated by EGD in january and this revealed no recurrence of esophageal cancer. He has 2 + MR Preserved LVEF Small PFO by echo The patient was seen by CTS colleagues (Jaison Ivan and [place]) who confirmed that it is reasonable to consider TAVR He has good RF access + COPD related to smoking Elevated left hemidiaphragm Exam Well compensated No acute distress In afib with relatively fast V rate Systolic murmur. I agree with plan for TAVR and Watch-TAVR study protocol. Below is the rational Mr. Jayde Kyle has a history of non valvular AF. He is at increased risk for stroke and systemic embolism based on a [id number] August CT, Rosendo LS, Zach JS, et. al., 2014 AHA/ACC/HRS Guideline for the Management of Patients With Atrial Fibrillation A Report of the [place] [employer]/[place] [employer] Task Force on Practice Guidelines and the Heart Rhythm Society, Circulation, 2014; 130: [id number]. Score of 4 and is recommended for anticoagulation therapy. Mr. Kyle is being referred for a Watchman Device as an alternative to oral anticoagulation and he has been found to be suitable for short term oral anticoagulation however is unable to take jail oral anticoagulation for the following reasons: h/o gastroesophageal cancer with prior bleeding The rationale for this procedure over pharmacologic therapy includes: the risk of bleeding taking into account the safety and effectiveness of the device based on clinical trials. A formal shared decision was reached with Jayde Kyle. Through the use of the shared decision making tool, he has made the decision to have this device implanted with hopes of eliminating continued necessity for the long-term use of oral anticoagulation. I feel that Jayde Kyle will benefit greatly from this procedure. In addition to atrial fibrillation, he also suffers from (list all other health-related conditions that patient suffers from and include diagnoses that apply. Provide a brief description of patient?s therapies, including medical management, to date.) Madison Gregory M.D. [facility] Staff Chronometer Adjuster [facility] [place] [facility] [place] [address] [phone] CNOV Observed: 07/12/2018 Status: COMPLETED Source: [place] 9:45 AM [facility] RE[facility] Office Visit (CARCMN) JAYDE KYLE ([id number]) 1950 M Date Time Provider Department 07/12/18 9:45 AM MADISON GREGORY During your visit today, we recorded the following information about you: Pulse Respiration Blood pressure Weight 118/minute 14/minute 119/89 97.1 kg Height 1.778 m Madison Gregory MD 07/12/2018 5:30 PM Signed [facility] [place] [facility] Department of Cardiovascular Medicine SECTION OF CLINICAL CARDIOLOGY OUTPATIENT VISIT DATE July 12, 2018 OUTPATIENT VISIT TYPE ESTABLISHED PRIMARY CARE PHYSICIAN: Macho Solorio DO [address] [place] [address] CHIEF COMPLAINT: No chief complaint on file. HISTORY OF PRESENT ILLNESS: Mr. Kyle is a 68 year old male who presents today for a cardiovascular medicine follow-up visit . NURSING INTAKE Mr Klye is a 68 year old male here today for cardiovascular medicine evaluation. He has a medical history significant for: -Aortic stenosis -Esophageal cancer s/p chemo/radiation -hypertension -hyperlipidemia -CHF -DM -Afib -smoker He was last seen in the office on 04/08/[address] Goldsmith for pre TAVR evaluation. Mr Kyle is scheduled for TAVR on 07/13/18. 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 Zach Howard - COLONOSCOPY 12/30/2016 - EGD BIOPSY SING OR MULT 01/22/2018 - EGD W/ BIOPSY SNGL/MLTPL 12/20/2016 - EGD W/O OR W/BRUSH/WASH 12/2012 EGD - EGD W/O OR W/BRUSH/WASH 04/14/2013 EGD - EGD W/O OR W/BRUSH/WASH 07/19/13 EGD - EGD W/O OR W/BRUSH/WASH 01/22/2018 antral biopsy, GE junction biopsy - HERNIA REPAIR HX umbilical SOCIAL HISTORY Social History Substance Use Topics - Smoking status: Current Some Day Smoker Packs/day: 2.00 Years: 50.00 Types: Cigarettes, Pipe, Cigars - Smokeless tobacco: Never Used Comment: attempting to quit - Alcohol use No FAMILY HISTORY Problem Relation Age of Onset - Stroke Mother - Stroke Father - other (tia) Father - Heart Brother - Diabetes Sister - Cancer Sister lymphoma x 2 - other (pneumonia) Maternal Grandmother - Stroke Maternal Grandfather - Cancer Paternal Grandfather - Stroke Paternal Grandmother ALLERGIES: ALLERGIES Allergen Reactions - Seasonal Allergies GI Upset headache MEDICATIONS: diltiazem CD (CARDIZEM CD) 120 mg 24 hr capsule Take 1 capsule by mouth once daily. furosemide (LASIX) 40 mg tablet Take 40 mg by mouth once daily. metFORMIN ER (GLUCOPHAGE XR) 500 mg 24 hr tablet Take 1 tablet by mouth twice daily before meals. GENERIC OKAY COMPOUNDED PRESCRIPTION Organically Bound Minerals COMPOUNDED PRESCRIPTION Cardiotrophin PMG COMPOUNDED PRESCRIPTION Forever Arctic C COMPOUNDED PRESCRIPTION Cataplex E2 warfarin (COUMADIN) 5 mg tablet Takes 5 mg tablet along with Warfarin 1 mg daily Thu-Thu-Thu warfarin (COUMADIN) 1 mg tablet TAKE 1 TABLET THU, THU, THU warfarin (COUMADIN) 5 mg tablet Take 5 mg by mouth daily as directed. warfarin (COUMADIN) 1 mg tablet Take 1 mg by mouth 3 times a WEEK. REVIEW OF SYSTEMS: positives in bold GENERAL: Negative for: Weight loss or gain, Fever or Chills, Weakness and Sleep difficulties. HEENT: Negative for: Headache, Impaired Vision, Glasses, Hearing Impairment, Ringing in Ears, Nosebleeds, Poor dental care, Bleeding Gums, Dentures NECK: Negative for: Swelling, Pain, Stiffness RESPIRATORY: Negative for: Cough, Blood in Sputum, Shortness of breath, Wheezing, Apnea GASTROINTESTINAL: Negative for: Trouble swallowing, Heartburn, Change in bowel habits, Blood in stool, Dark black stools MUSCULOSKELETAL: Negative for: Muscle or joint pain, Stiffness , Joint swelling NEUROLOGIC/PSYCHIATRIC: Negative for: Weakness, Paralysis, Numbness, Tingling, Tremor, Nervousness, Depressed mood, Memory loss SKIN: Negative for: Rashes, Itching HEMATOLOGICAL/LYMPHATIC: Negative for: Easy bruising , Easy bleeding ENDOCRINE: Negative for: Heat or cold intolerance, Excessive sweating, Frequent urination, Frequent thirst PHYSICAL EXAMINATION: BP 119/89 (BP Site: Left Arm, BP Cuff Size: Regular Adult) Pulse 118 Resp 14 Ht 177.8 cm (5' 10) Wt 97.1 kg (214 lb) SpO2 98% BMI 30.71 kg/m? General: Well appearing, in no acute distress. Skin: No clubbing, no cyanosis. Eyes: no icterus Neck: No jugular venous distention, no carotid bruits, carotids have a normal upstroke, no palpable thyromegaly. Lungs: Clear to auscultation bilaterally, no wheezing or rhonchi. Heart: irregularly irregular Systolic murmur /6 Abdomen: Soft, nontender, bowel sounds normal, no palpable organomegaly, no bruits. Extremities: No peripheral edema . Grade 2/4 distal pulses bilaterally. Neuro: Oriented to person, place and time, alert, cooperative, gait coordinated. CARDIOVASCULAR MEDICINE TESTING: Electrocardiogram: CTA CHEST/ABD/PEL (GATED) W IVCON 04/08/18 IMPRESSION: 1. ?Trileaflet aortic valve with severe leaflet calcifications. Details of anatomy and calcification are described above. 2. ?The thoracic aorta is tortuous distally. ?Mild ectasia of mid ascending aorta noted, measuring 4.0 cm (area 11.8 cm2). The reminder of the thoracic and abdominal aorta is normal in caliber. ?No acute aortic pathology identified. ?The pelvic arteries, including the common femoral arteries are mildly tortuous, with normal caliber and mild calcific wall changes. ?The minimal luminal caliber throughout = 7 mm in both common femoral arteries. 3. Few small (<5 mm) lung nodules noted, most of which are unchanged. 4. ?Ectopic right pelvic kidney. ECHO 04/08/18 CONCLUSIONS: - Technically difficult exam due to body habitus. - Exam indication: Routine surveillance of moderate or severe valvular stenosis (>1yr) - The left ventricle is normal in size. Left ventricular systolic function is normal. EF = 55 ? 5% (2D biplane) Definity contrast used for endocardial border detection. Left ventricular diastolic function was not evaluated due to AF. - The right ventricle is normal in size. Right ventricular systolic function is normal. - The left atrial cavity is severely dilated. - The right atrial cavity is severely dilated. - There is moderate (2+) holosystolic mitral valve regurgitation. Regurgitant orifice area (PISA) is 0.24 cm?. - Tricuspid aortic valve. There is low flow, low gradient, moderately severe aortic valve stenosis caused by calcified valve. AV area is 0.50 cm? (0.23 cm?/m?) ?by continuity, VTI. The peak gradient is 45 mmHg, the mean gradient is 27 mmHg and the dimensionless valve index is 0.18. Av gradient averaged today d/t AF rhythm. Prior pk/mn gradients 57/34mmHg - A PFO is noted by color on prior echo as well as clips 103, 122-124 - Exam was compared with the prior CC echocardiographic exam performed on 09/30/2016. There is no significant change. Component Latest Ref Rng AND Units 04/08/2018 07/12/2018 WBC 3.70 - 11.00 k/uL 6.67 7.38 RBC 4.20 - 6.00 m/uL 4.36 4.35 Hemoglobin 13.0 - 17.0 g/dL 14.2 14.1 Hematocrit 39.0 - 51.0 % 42.7 43.4 MCV 80.0 - 100.0 fL 97.9 99.8 MCH 26.0 - 34.0 pG 32.6 32.4 MCHC 30.5 - 36.0 g/dL 33.3 32.5 RDW-CV 11.5 - 15.0 % 15.3 (H) 14.6 Platelet Count 150 - 400 k/uL 180 180 MPV 9.0 - 12.7 fL 12.4 11.8 Neut% % 59.2 Abs Neut (ANC) 1.45 - 7.50 k/uL 3.92 Lymph% % 25.3 Abs Lymph 1.00 - 4.00 k/uL 1.69 Howard% % 11.5 Abs Howard <0.87 k/uL 0.77 Eosin% % 3.1 Abs Eosin <0.46 k/uL 0.21 Baso% % 0.9 Abs Baso <0.11 k/uL 0.06 Nucleated Reds 0 /100 WBC 0.0 Absolute nRBC <0.01 k/uL <0.01 <0.01 Diff Type Auto Diff Protein, Total 6.3 - 8.0 g/dL 8.2 (H) Albumin 3.9 - 4.9 g/dL 4.1 Calcium 8.5 - 10.2 mg/dL 9.5 Bilirubin, Total 0.2 - 1.3 mg/dL 1.5 (H) Alkaline Phosphatase 36 - 108 U/L 71 AST 14 - 40 U/L 21 Glucose 74 - 99 mg/dL 129 (H) BUN 9 - 24 mg/dL 15 Creatinine 0.73 - 1.22 mg/dL 0.98 Sodium 136 - 144 mmol/L 138 Potassium 3.7 - 5.1 mmol/L 4.4 Chloride 97 - 105 mmol/L 99 CO2 22 - 30 mmol/L 29 Anion Gap 9 - 18 mmol/L 10 ALT 10 - 54 U/L 18 eGFR- >60 eGFR-All Other Races . >60 Hemoglobin A1C 4.3 - 5.6 % 8.2 (H) Estimated Average Glucose mg/dL 189 PT Sec 9.7 - 13.0 sec 12.4 PT INR 0.9 - 1.3 1.2 NT Pro BNP <125 pg/mL 978 (H) I have personally reviewed the Electrocardiogram, Laboratory Testing and Echocardiogram. IMPRESSION: Mr. Kyle is a 68 year old male with h/o esophageal cancer treated with radiation and chemotherapy 2014. Also h/o chronic afib since 2009 on AC with warfarin. Now with severe symptomatic likely exacerbated by radiation therapy Was seen by my colleague Dr Goldsmith in the past and considered for TAVR The patient has mitral anular calcification. He underwent a comprehensive workup for TAVR including CTA [facility] 12/29/2017 (report available) He was recently evaluated by EGD in january and this revealed no recurrence of esophageal cancer. He has 2 + MR Preserved LVEF Small PFO by echo The patient was seen by CTS colleagues (Jaison Ivan and [place]) who confirmed that it is reasonable to consider TAVR He has good RF access + COPD related to smoking Elevated left hemidiaphragm Exam Well compensated No acute distress In afib with relatively fast V rate Systolic murmur. I agree with plan for TAVR and Watch-TAVR study protocol. Below is the rational Mr. Jayde Kyle has a history of non valvular AF. He is at increased risk for stroke and systemic embolism based on a [id number] August CT, Rosendo LS, Zach JS, et. al., 2014 AHA/ACC/HRS Guideline for the Management of Patients With Atrial Fibrillation A Report of the [place] [employer]/[place] [employer] Task Force on Practice Guidelines and the Heart Rhythm Society, Circulation, 2014; 130: [id number]. Score of 4 and is recommended for anticoagulation therapy. Mr. Kyle is being referred for a Watchman Device as an alternative to oral anticoagulation and he has been found to be suitable for short term oral anticoagulation however is unable to take lobsterman oral anticoagulation for the following reasons: h/o gastroesophageal cancer with prior bleeding The rationale for this procedure over pharmacologic therapy includes: the risk of bleeding taking into account the safety and effectiveness of the device based on clinical trials. A formal shared decision was reached with Jayde Kyle. Through the use of the shared decision making tool, he has made the decision to have this device implanted with hopes of eliminating continued necessity for the long-term use of oral anticoagulation. I feel that Jayde Kyle will benefit greatly from this procedure. In addition to atrial fibrillation, he also suffers from (list all other health-related conditions that patient suffers from and include diagnoses that apply. Provide a brief description of patient?s therapies, including medical management, to date.) Madison Gregory M.D. [facility] Staff Chronometer Adjuster [facility] [place] [phone] Referring Provider: MJ BLAIR [[id number]] Allergies As of Date: 07/12/2018 Noted Allergy Reaction SEASONAL ALLERGIES 10/04/2012 8 - GI Upset Comments: headache Date Reviewed: 07/12/2018 Reviewed by: Michelle Banegas - Fully Assessed Primary Visit Diagnosis:Severe aortic stenosis [I35.0] Other Visit Diagnoses:Chronic atrial fibrillation (HCC) [I48.2] Uncontrolled type 2 diabetes mellitus without complication, without long-term current use of insulin (HCC) [E11.65] Cough [R05] Obesity, Class I, BMI 30-34.9 [E66.9] Diabetic nephropathy associated with type 2 diabetes mellitus (HCC) [E11.21] Chronic anticoagulation [Z79.01] Prescriptions as of 07/12/2018 Sig: DILTIAZEM SR 120 MG 24 HR CAP Take 1 capsule by mouth once * FUROSEMIDE 40 MG TABLET Take 40 mg by mouth once dalia* METFORMIN ER 500 MG TABLET,EX* Take 1 tablet by mouth twice * COMPOUNDED PRESCRIPTION Organically Bound Minerals COMPOUNDED PRESCRIPTION Cardiotrophin PMG COMPOUNDED PRESCRIPTION Forever Arctic C COMPOUNDED PRESCRIPTION Cataplex E2 WARFARIN 5 MG TABLET Takes 5 mg tablet along with * WARFARIN 1 MG TABLET TAKE 1 TABLET MON, WED, FRI WARFARIN 5 MG TABLET Take 5 mg by mouth daily as d* WARFARIN 1 MG TABLET Take 1 mg by mouth 3 times a * Problem List As Of Date 07/12/2018 Noted Resolved 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] INVALID FOR* Drug induced neutropenia [D70.2] INVALID FOR*11/23/2012 Atrial fibrillation [I48.91] INVALID FOR* 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] INVALID FOR* Hypercholesteremia [E78.00] INVALID FOR* Diabetes mellitus type 2 in nonobese (HCC) [E11*INVALID FOR*07/12/2018 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*INVALID FOR*07/06/2014 CHF (congestive heart failure) (HCC) [I50.9] INVALID FOR*07/12/2018 Aortic stenosis [I35.0] INVALID FOR* History of gastric cancer [Z85.028] INVALID FOR*07/12/2018 Chronic atrial fibrillation (HCC) [I48.2] INVALID FOR* Chronic diastolic congestive heart failure (HCC*INVALID FOR*07/12/2018 Nonrheumatic aortic valve stenosis [I35.0] INVALID FOR*07/12/2018 Positive for macroalbuminuria [R80.9] INVALID FOR* Screening for intestinal cancer [Z12.10] INVALID FOR* 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*INVALID FOR* Bilateral leg edema [R60.0] INVALID FOR* Varicose veins of both legs with edema [I83.893]INVALID FOR* Chronic anticoagulation [Z79.01] INVALID FOR* Aortic valve stenosis [I35.0] INVALID FOR*07/12/2018 Cough [R05] INVALID FOR* Obesity, Class I, BMI 30-34.9 [E66.9] INVALID FOR* Phimosis [N47.1] INVALID FOR* Severe aortic stenosis [I35.0] INVALID FOR* Dyslipidemia [E78.5] INVALID FOR* Uncontrolled type 2 diabetes mellitus without c*INVALID FOR* Leg ulcer, left, limited to breakdown of skin (*INVALID FOR*07/12/2018 Encounter Status:Closed by MADISON GREGORY MD on 07/12/18 PROGRESS Observed: 07/12/2018 Status: COMPLETED Source: [place] 9:26 AM [facility] RE[facility] HNO ID: [id number] Author: Hugoapril Deanmagalyshanna Service: (none) Author Type: Physician Type: Progress Notes Filed: 08/04/2018 1:53 PM Note Text: CHART COPY DO NOT DISCARD Patient Type: Consult Visit to determine Surgery: Yes PCP: Macho Solorio DO [address] [place] [address] Referring Physician:: Mj Blair MD [address] Desk J[address] [facility] [address] HPI: Mr. Jayde Kyle is a 68 year old male seen in consultation at the request of Mj Blair for opinion regarding treatment options for aortic stenosis. Hx of shortness of breath and tiredness on exertion. Hx of Afib and multiple comorbidities, including esophageal cancer. CT: no calcification of ascending ECHO: EF intact There is mild mitral annular calcification observed posterior. There is moderate (2+) holosystolic mitral valve regurgitation. There is a posteriorly directed regurgitant jet. Regurgitant orifice area (PISA) is 0.24 cm?. ? TRICUSPID VALVE There is mild (1+ - 2+) tricuspid valve regurgitation. The hepatic venous pattern showed normal systolic flow. ? AORTIC VALVE There is moderately severe aortic valve stenosis caused by calcified valve. There is mild (1+) aortic valve regurgitation. Tricuspid aortic valve. There is moderate ?thickening. There is moderate calcification. The peak gradient is 45 mmHg (peak velocity = 335.0 cm/s). The mean gradient is 27 mmHg. The LVOT mean velocity is 44.2 cm/s. The LVOT diameter is 1.9 cm. The aortic VTI is 71.9 cm. The mean velocity in the aortic valve is 248.7 cm/s. The dimensionless valve index is 0.18. ?AV area is 0.50 cm? (0.23 cm?/m?) by continuity, VTI. The LVOT stroke volume index is 17 ml/m?. Based on my evaluation he is a medium risk for open heart surgery and cardiac surgery. Impression: Aortic Stenosis , low to moderate risk Plan: Reasonable to proceed with TAVR I spent 40 minutes in this visit, with more than 50% of the time devoted to patient counseling. These findings will be communicated back to the requesting physician via electronic medical record Hugo Coleman MD PROGRESS Observed: 07/12/2018 Status: COMPLETED Source: [place] 9:17 AM [facility] REPOSITORY O ID: [id number] Author: Prashant Peacock Service: (none) Author Type: Resident Type: Progress Notes Filed: 07/12/2018 10:04 AM Note Text: [facility] EVALU[facility] CARDIOTHORACIC ANESTHESIA CARDIAC SURGERY SERVICE DATE: 07/12/2018 SERVICE TIME: 9:17 AM Proposed Surgical Procedure: TAVR Re-do: No ASA Class: 4 Surgeon: Jorge Surgery Date: 07/13/18 Last Wt 05/14/18 : 97.1 kg (214 lb) Last Ht 04/12/18 : 179 cm (5' 10.47) Estimated body mass index is 30.3 kg/m? as calculated from the following: Height as of 04/12/18: 179 cm (5' 10.47). Weight as of 05/14/18: 97.1 kg (214 lb). Estimated body surface area is 2.2 meters squared as calculated from the following: Height as of 04/12/18: 179 cm (5' 10.47). Weight as of 05/14/18: 97.1 kg (214 lb). 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 Zach Howard - COLONOSCOPY 12/30/2016 - EGD BIOPSY SING OR MULT 01/22/2018 - EGD W/ BIOPSY SNGL/MLTPL 12/20/2016 - EGD W/O OR W/BRUSH/WASH 12/2012 EGD - EGD W/O OR W/BRUSH/WASH 04/14/2013 EGD - EGD W/O OR W/BRUSH/WASH 07/19/13 EGD - EGD W/O OR W/BRUSH/WASH 01/22/2018 antral biopsy, GE junction biopsy - HERNIA REPAIR HX umbilical FAMILY HISTORY Problem Relation Age of Onset - Stroke Mother - Stroke Father - other (tia) Father - Heart Brother - Diabetes Sister - Cancer Sister lymphoma x 2 - other (pneumonia) Maternal Grandmother - Stroke Maternal Grandfather - Cancer Paternal Grandfather - Stroke Paternal Grandmother Social History Substance Use Topics - Smoking status: Current Every Day Smoker Packs/day: 2.00 Years: 50.00 Types: Cigarettes, Pipe, Cigars - Smokeless tobacco: Never Used Comment: attempting to quit - Alcohol use No ALLERGIES Allergen Reactions - Seasonal Allergies GI Upset headache REVIEW OF SYSTEMS: Neuro: Negative Respiratory: No history of current cough or dyspnea, or pneumonia in the past 6 weeks. No history of respiratory/pulmonary symptoms or problems Cardiovascular: See HPI GI: No history of GI symptoms or problems. No history of esophageal varices, recent ascites, or ETOH greater than 2 drinks per day. Endocrine: No history of diabetes. Has not taken steroids within the past 30 days. No history of endocrinological symptoms or problems. Hematology: See HPI ANESTHETIC HISTORY: History of general anesthesia without complications. AIRWAY ASSESSMENT: Airway History: No abnormal airway history Airway Exam: General: Normal appearance Mallampati Score: CLASS I Temporo-Mandibular Displacement Test: Position A (lower teeth can be advanced beyond upper teeth) Interincisor Distance: 5 cm Thyromental Distance: 8 cm Neck Circumference: 42 cm Overbite: Yes Cervical Mobility: Some Limitation Facial Hair: Yes, Full Rizo-Yes Head/Neck Pathology: No ANTICIPATED DIFFICULT AIRWAY: NO Pre-Existing Diagnosis of Obstructive Sleep Apnea: Yes, uses home CPAP. Asked patient to bring own device for the postoperative period. PHYSICAL EXAM: VITALS: There were no vitals taken for this visit. CARDIAC: Irregular rate and rhythm LUNGS: Lungs clear to auscultation. Good air entry bilaterally. LABS: Lab Results Past 6 Months Component Value Date HB 14.1 07/12/2018 HCT 43.4 07/12/2018 PLT 180 07/12/2018 WBC 7.38 07/12/2018 NA 138 04/08/2018 K 4.4 04/08/2018 CREAT 0.90 04/08/2018 CREAT 0.98 04/08/2018 CA 9.5 04/08/2018 INR 1.2 07/12/2018 HBA1C 8.2 (H) 04/08/2018 Lab Results Past 6 Months Component Value Date GLUC 129 (H) 04/08/2018 K 4.4 04/08/2018 NA 138 04/08/2018 CHLOR 99 04/08/2018 CO2 29 04/08/2018 CREAT 0.90 04/08/2018 CREAT 0.98 04/08/2018 BUN 15 04/08/2018 ANION 10 04/08/2018 CA 9.5 04/08/2018 TPROT 8.2 (H) 04/08/2018 ALB 4.1 04/08/2018 TBILI 1.5 (H) 04/08/2018 ALKPHOS 71 04/08/2018 AST 21 04/08/2018 ALT 18 04/08/2018 Anticipated Blood Products Ordered: Ordered 2 units of PRBC. Will the Patient Accept Blood: Yes IMAGING AND TESTS: ECHO CONCLUSIONS: - Technically difficult exam due to body habitus. - Exam indication: Routine surveillance of moderate or severe valvular stenosis (>1yr) - The left ventricle is normal in size. Left ventricular systolic function is normal. EF = 55 ? 5% (2D biplane) Definity contrast used for endocardial border detection. Left ventricular diastolic function was not evaluated due to AF. - The right ventricle is normal in size. Right ventricular systolic function is normal. - The left atrial cavity is severely dilated. - The right atrial cavity is severely dilated. - There is moderate (2+) holosystolic mitral valve regurgitation. Regurgitant orifice area (PISA) is 0.24 cm?. - Tricuspid aortic valve. There is low flow, low gradient, moderately severe aortic valve stenosis caused by calcified valve. AV area is 0.50 cm? (0.23 cm?/m?) ?by continuity, VTI. The peak gradient is 45 mmHg, the mean gradient is 27 mmHg and the dimensionless valve index is 0.18. Av gradient averaged today d/t AF rhythm. Prior pk/mn gradients 57/34mmHg - A PFO is noted by color on prior echo as well as clips 103, 122-124 - Exam was compared with the prior CC echocardiographic exam performed on 09/30/2016. There is no significant change. LHC LM - normal LAD - prox < 30% Circ - normal RCA - normal DEVICES: None MEDICATIONS: Current Outpatient Prescriptions: warfarin (COUMADIN) 5 mg tablet Takes 5 mg tablet along with Warfarin 1 mg daily Thu-Thu-Thu warfarin (COUMADIN) 1 mg tablet TAKE 1 TABLET THU, THU, THU warfarin (COUMADIN) 5 mg tablet Take 5 mg by mouth daily as directed. warfarin (COUMADIN) 1 mg tablet Take 1 mg by mouth 3 times a WEEK. diltiazem CD (CARDIZEM CD) 120 mg 24 hr capsule Take 1 capsule by mouth once daily. furosemide (LASIX) 40 mg tablet Take 40 mg by mouth once daily. metFORMIN ER (GLUCOPHAGE XR) 500 mg 24 hr tablet Take 1 tablet by mouth twice daily before meals. GENERIC OKAY COMPOUNDED PRESCRIPTION Organically Bound Minerals COMPOUNDED PRESCRIPTION Cardiotrophin PMG COMPOUNDED PRESCRIPTION Forever Arctic C COMPOUNDED PRESCRIPTION Cataplex E2 No current facility-administered medications for this visit. Is the patient currently on any anticoagulant medications: Yes: Anticoagulant medications the patient is currently on: Coumadin: Last dose: 07/08/2018 This was adequately stopped before surgery: Yes PAIN AND ANXIETY EDUCATION AND MANAGEMENT: Patient has no concerns to address at this time. Additional Comments: I have reviewed the Cardiothoracic Surgical Assessment and agree with its findings. During the course of the encounter the patient was prepared for anesthetic care. This conversation included anesthetic options, possible use of invasive monitoring, the risks, benefits, alternatives, and personnel that will be present for the anesthetic encounter. The patient agreed to proceed with the planned anesthetic. Instructed to take diltiazem with a small sip of water on the morning of surgery. BETA ODILIA COMPLIANCE: Is the Patient Scheduled for a CABG: No SIGNATURE: Prashant Peacock DO PATIENT NAME: Jayde Kyle DATE: July 12, 2018 TIME: 9:17 AM PAGER/CONTACT #: TYPE AND SCREEN Collected: 07/12/2018 Status: F Source: [place] 9:05 AM [facility] REPOSITORY TYPE CODE TESTS RESULT OUT OF REFERENCE UNITS RANGE LAB %ABR A ABO/RH(D) NEGATIVE LAB % Antibody NEG Screen Performed By: #### TSCR #### [facility] [address] [place] [address] CNOV Observed: 07/12/2018 Status: COMPLETED Source: [place] 9:00 AM [facility] REPOSITORY Office Visit (TOHSMN) ANABELLA,JONAS J ([id number]) 1950 M Date Time Provider Department 07/12/18 9:00 AM [facility] During your visit today, we recorded the following information about you: Hugo Coleman MD 08/04/2018 1:53 PM Signed CHART COPY DO NOT DISCARD Patient Type: Consult Visit to determine Surgery: Yes PCP: Macho Solorio DO [address] [place] [address] Referring Physician:: Mj Blair MD [address] [facility] [address] HPI: Mr. Jayde Murguia Anabella is a 68 year old male seen in consultation at the request of Mj Blair for opinion regarding treatment options for aortic stenosis. Hx of shortness of breath and tiredness on exertion. Hx of Afib and multiple comorbidities, including esophageal cancer. CT: no calcification of ascending ECHO: EF intact There is mild mitral annular calcification observed posterior. There is moderate (2+) holosystolic mitral valve regurgitation. There is a posteriorly directed regurgitant jet. Regurgitant orifice area (PISA) is 0.24 cm?. ? TRICUSPID VALVE There is mild (1+ - 2+) tricuspid valve regurgitation. The hepatic venous pattern showed normal systolic flow. ? AORTIC VALVE There is moderately severe aortic valve stenosis caused by calcified valve. There is mild (1+) aortic valve regurgitation. Tricuspid aortic valve. There is moderate ?thickening. There is moderate calcification. The peak gradient is 45 mmHg (peak velocity = 335.0 cm/s). The mean gradient is 27 mmHg. The LVOT mean velocity is 44.2 cm/s. The LVOT diameter is 1.9 cm. The aortic VTI is 71.9 cm. The mean velocity in the aortic valve is 248.7 cm/s. The dimensionless valve index is 0.18. ?AV area is 0.50 cm? (0.23 cm?/m?) by continuity, VTI. The LVOT stroke volume index is 17 ml/m?. Based on my evaluation he is a medium risk for open heart surgery and cardiac surgery. Impression: Aortic Stenosis , low to moderate risk Plan: Reasonable to proceed with TAVR I spent 40 minutes in this visit, with more than 50% of the time devoted to patient counseling. These findings will be communicated back to the requesting physician via electronic medical record Hugo Coleman MD Referring Provider: MJ BLAIR [[id number]] Allergies As of Date: 07/12/2018 Noted Allergy Reaction SEASONAL ALLERGIES 10/04/2012 8 - GI Upset Comments: headache Date Reviewed: 07/12/2018 Reviewed by: Michelle Banegas - Fully Assessed Primary Visit Diagnosis:Nonrheumatic aortic valve stenosis [I35.0] Prescriptions as of 07/12/2018 Sig: METFORMIN ER 500 MG TABLET,EX* Take 1 tablet by mouth twice * WARFARIN 1 MG TABLET TAKE 1 TABLET MON, WED, FRI WARFARIN 5 MG TABLET Takes 5 mg tablet along with * X COMPOUNDED PRESCRIPTION Organically Bound Minerals X COMPOUNDED PRESCRIPTION Cardiotrophin PMG X COMPOUNDED PRESCRIPTION Forever Arctic C X COMPOUNDED PRESCRIPTION Cataplex E2 X DILTIAZEM SR 120 MG 24 HR CAP Take 1 capsule by mouth once * X FUROSEMIDE 40 MG TABLET Take 40 mg by mouth once dalia* X WARFARIN 1 MG TABLET Take 1 mg by mouth 3 times a * X WARFARIN 5 MG TABLET Take 5 mg by mouth daily as d* Problem List As Of Date 07/12/2018 Noted Resolved 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 Diabetes mellitus type 2 in nonobese (HCC) [E11*INVALID FOR*07/12/2018 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*INVALID FOR*07/06/2014 CHF (congestive heart failure) (HCC) [I50.9] INVALID FOR*07/12/2018 Aortic stenosis [I35.0] INVALID FOR* More... History of gastric cancer [Z85.028] INVALID FOR*07/12/2018 Chronic atrial fibrillation (HCC) [I48.2] INVALID FOR* Chronic diastolic congestive heart failure (HCC*INVALID FOR*07/12/2018 Nonrheumatic aortic valve stenosis [I35.0] INVALID FOR*07/12/2018 Positive for macroalbuminuria [R80.9] INVALID FOR* Screening for intestinal cancer [Z12.10] INVALID FOR* 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*INVALID FOR* Bilateral leg edema [R60.0] INVALID FOR* Varicose veins of both legs with edema [I83.893]INVALID FOR* Chronic anticoagulation [Z79.01] INVALID FOR* Aortic valve stenosis [I35.0] INVALID FOR*07/12/2018 Cough [R05] INVALID FOR* Obesity, Class I, BMI 30-34.9 [E66.9] INVALID FOR* Phimosis [N47.1] INVALID FOR* Severe aortic stenosis [I35.0] INVALID FOR* Dyslipidemia [E78.5] INVALID FOR* Uncontrolled type 2 diabetes mellitus without c*INVALID FOR* Leg ulcer, left, limited to breakdown of skin (*INVALID FOR*07/12/2018 Encounter Status:Closed by BRITNEY WALDEN on 08/04/18 PROTIME Collected: 07/12/2018 Status: F Source: [place] 8:05 AM [facility] REPOSITORY TYPE CODE TESTS RESULT OUT OF RANGE REFERENCE UNITS LAB PSEC 9.7-13.0 sec PT Sec 12.4 LAB INR 0.9-1.3 PT INR 1.2 Result Comment: Vitamin K Antagonist (VKA) Therapeutic Range: INR 2 to 3 (Target INR of 2.5) Note: For patients treated with VKA drugs, such as warfarin, the [place] [employer] 2012 Guideline recommends a therapeutic INR range of 2 to 3 (target INR of 2.5). This recommendation includes high-risk patients with antiphospholipid syndrome with previous arterial or venous thromboembolism, current-generation mechanical or bioprosthetic aortic heart valve replacement. Note: Patients with mechanical aortic valve replacement and additional risk factors for thromboembolic events (atrial fibrillation, previous thromboembolism, LV dysfunction, hypercoagulable conditions) or an older generation mechanical AVR (i.e., ball in-Cage) or any mechanical MVR should have a INR therapeutic range of 2.5 to 3.5 (target INR of 3). Poonam GH, et al. Chest 2012, 141:7S-47S Jeancarlos RA, et al. [facility] 2017, 70: 252-289 Performed By: #### PT, CBC, BMP #### [facility] [address] [place] [id number] CBC Collected: 07/12/2018 Status: F Source: [place] 8:05 AM [facility] REPOSITORY TYPE CODE TESTS RESULT OUT OF REFERENCE UNITS RANGE LAB WBC 3.70-11.00 k/uL WBC 7.38 LAB RBC 4.20-6.00 m/uL RBC 4.35 LAB HGB 13.0-17.0 g/dL Hemoglobin 14.1 LAB HCT 39.0-51.0 % Hematocrit 43.4 LAB MCV 80.0-100.0 fL MCV 99.8 LAB MCH 26.0-34.0 pG MCH 32.4 LAB MCHC 30.5-36.0 g/dL MCHC 32.5 LAB RDWCV 11.5-15.0 % RDW-CV 14.6 LAB PLTCT 150-400 k/uL Platelet Count 180 LAB MPV 9.0-12.7 fL MPV 11.8 LAB ABSNUC <0.01 k/uL Absolute nRBC <0.01 Performed By: #### PT, CBC, BMP #### [facility] [address], [place] [address] BASIC METABOLIC PANL Collected: 07/12/2018 Status: F Source: [place] 8:05 [facility] REPOSITORY TYPE CODE TESTS RESULT OUT OF REFERENCE UNITS RANGE LAB GLU 74-99 mg/dL High Glucose 166 Result Comment: The [place] Diabetes Association (ADA) provides guidance for cutoff values for fasting glucose and random glucose. The ADA defines fasting as no caloric intake for at least 8 hours. Fas ting plasma glucose results between 100 to 125 mg/dL indicate increased risk for diabetes (prediabetes). Fasting plasma glucose results greater than or equal to 126 mg/dL meet the criteria for diagnosis of diabetes. In the absence of unequivocal hyperglycemia, results should be confirmed by repeat testing. In a patient with classic symptoms of hyperglycemia or hyperglycemic crisis, random plasma glucose results greater than or equal to 200 mg/dL meet the criteria for diagnosis of diabetes. Reference: Standards of Medical Care in Diabetes 2016, [place] Diabetes Association. Diabetes Care. 2016.39(Suppl 1). LAB BUN 9-24 mg/dL BUN 16 LAB CRET 0.73-1.22 mg/dL Creatinine 0.86 LAB NA 136-144 mmol/L Sodium 137 LAB K 3.7-5.1 mmol/L Potassium 4.5 LAB CL 97-105 mmol/L Low Chloride 96 LAB CO2 22-30 mmol/L CO2 High 32 LAB AGAP 9-18 mmol/L Anion Gap 9 LAB CA 8.5-10.2 mg/dL Calcium, Total 9.3 LAB GFRAA eGFR- Amer. >60 LAB GFRNAA . eGFR-All Other Races >60 Result Comment: eGFR (Estimated GFR) Units of measure: mL/min/1.73 meters squared eGFR is derived from the reexpressed MDRD Study equation using the following parameters: serum creatinine, age, gender and race. The creatinine assay has been calibrated to be traceable to IDMS. An eGFR <60 mL/min/1.73m2 for >3 months is consistent with chronic kidney disease. Refer to KDOQI guidelines for clinical interpretation. In patients with unstable renal function, e.g. those with acute kidney injury, the eGFR may not accurately reflect actual GFR. Performed By: #### PT, CBC, BMP #### [facility] [address] [place] [address] PROGRESS Observed: 07/12/2018 Status: COMPLETED Source: [place] 7:37 AM [facility] REPOSITORY HNO ID: [id number] Author: Liana Jaime Service: (none) Author Type: (none) Type: Progress Notes Filed: 07/12/2018 7:38 AM Note Text: Radiology Service Progress Note PATIENT NAME: Jayde Kyle DATE OF SERVICE: July 12, 2018 TIME: 7:38 AM PATIENT IDENTITY VERIFICATION COMPLETED USING TWO (2) METHODS: Patient confirmed name verbally and Date of . PATIENT GENDER DATA: Male PATIENT RELEVANT IMPLANT DATA REVIEWED: Not Applicable RADIOLOGY DEPARTMENT: General X-ray: Exam(s) Completed: Chest X-Ray PERIPHERAL IV DATA: Not applicable SIGNED BY: Liana Jaime July 12, 2018 7:38 AM XR CHEST 2V FRONTAL/LAT Observed: 07/12/2018 Status: F Source: [place] 7:37 AM [facility] RE[facility] * * *Final Report* * * DATE OF EXAM: Jul 12 2018 7:37AM [facility] [id number] - XR CHEST 2V FRONTAL/LAT / PROCEDURE REASON: Severe aortic stenosis * * * * Physician Interpretation * * * * EXAMINATION: CHEST RADIOGRAPH (2 VIEW FRONTAL and LATERAL) CLINICAL HISTORY: Severe aortic stenosis MQ: XC2_5 Comparison: 04/08/2018 RESULT: Lines, tubes, and devices: None. Lungs and pleura: There is pulmonary vascular cephalization, this is stable. There is left-sided posterior elevation/eventration of hemidiaphragm with adjacent atelectasis. Cardiomediastinal silhouette: Cardiac silhouette is prominent though stable Other: degenerative changes noted in the spine . IMPRESSION: Stable as in body of report Manufacturing Technologist: INEZ Transcribe Date/Time: Jul 12 2018 9:42A Dictated by : JENA WATSON MD This examination was interpreted and the report reviewed and electronically signed by: EJNA WATSON MD on Jul 12 2018 9:43AM EST [id number] ECG COMPLETE W Observed: 07/12/2018 Status: C Source: [place] INTERPRETATION 7:34 AM [facility] RE[facility] NAME : JAYDE KYLE PID : [id number] : 1950 Gender : Male Race : ORD : [id number] Procedure Date : Jul 12 2018 07:34:37 Edit Date : Jul 12 2018 12:30:06 Diagnosis:ATRIAL FIBRILLATION WITH RAPID VENTRICULAR RESPONSE CANNOT EXCLUDE INFERIOR MYOCARDIAL INFARCTION , AGE UNDETERMINED ABNORMAL ECG Confirmed by MD FARIHA, PhD, RAN ([id number]) on 07/12/2018 12:29:43 PM Also confirmed by MD FARIHA, PhD, RAN ([id number]) on 07/12/2018 12:30:00 PM Ventricular Rate : 107 BPM Atrial Rate : 75 BPM QRS Duration : 100 ms Q-T Interval : 324 ms QTC Calculation(Bezet) : 432 ms R [place] : 23 degrees T [place] : -26 degrees Test Reason : Location : 314 : J14 Overread By : MD FARIHA, PhD,RAN Edited By : MD FARIHA, PhD,RAN Referred By : CATHIE VIVAR Acquired by : DIAN ARCE PROGRESS Observed: 05/31/2018 Status: COMPLETED Source: [place] 4:27 PM [facility] REPOSITORY HNO ID: [id number] Author: Macho Solorio Service: (none) Author Type: Physician Type: Progress Notes Filed: 05/31/2018 4:51 PM Note Text: Agree with below Macho Solorio DO PROGRESS Observed: 05/31/2018 Status: COMPLETED Source: [place] 3:34 PM [facility] REPOSIT[facility] HNO ID: [id number] Author: Elisabeth Dos Santos RN Service: (none) Author Type: (none) Type: Progress Notes Filed: 05/31/2018 3:35 PM Note Text: patient had inr completed at [facility] patients inr is 2.3 (patients inr range is 2.0-3.0) patient is currently taking 6mg Mon,Wed,Fri and 5mg all other days patients last dose change was on 09/30/16 due to a low level of 1.5 (dose at that time was 6mg Mon,Fri and 5mg all other days) patient has had no changes in medication and no missed doses and no change in diet Advised patient to continue on the same dose(s) and that they would only be contacted regarding dosage and follow up instructions after review with provider, if a change is needed. Written instructions given and patient verbalized understanding. Presently scheduled in 4 weeks (pt will call to schedule appt) for follow up INR. CNCO Observed: 05/28/2018 Status: COMPLETED Source: [place] 12:00 AM [facility] REPOSITORY Letter Text Ray Gunderson, F.A.C.C. hotel service supervisor Director, [facility] [employer] Occupational Therapist, Interventional Cardiology Fellowship Cipriano Saba Department of Cardiovascular Medicine/ J2-3 Office: [phone] Appointment: [phone] May 28, 2018 [facility] Regarding: PATEINT NAME: JAYDE KYLE DATE OF : 1950 [facility] DATE OF ENDOSCOPY: 2017 Please Fax a copy of related records to: Dr. Vanessa Patel [facility] [address] Mail Code J2-3 [place], [place] [address] Please contact my office with any questions [phone]. Respectfully, aVnessa Patel MD [facility] Observed: 05/20/2018 Status: COMPLETED Source: [place] 12:00 AM [facility] REPOSITORY Patient:Jayde Kyle MRN: <[id number]> Height:5' 10(1.778 m) Weight:214 lb (97.07 kg) Outpatient Medications as of 07/13/18: aspirin, enteric coated (ECOTRIN LOW STRENGTH) 81 mg EC tablet COMPOUNDED PRESCRIPTION COMPOUNDED PRESCRIPTION COMPOUNDED PRESCRIPTION COMPOUNDED PRESCRIPTION diltiazem CD (CARDIZEM CD) 120 mg 24 hr capsule furosemide (LASIX) 40 mg tablet metFORMIN ER (GLUCOPHAGE XR) 500 mg 24 hr tablet warfarin (COUMADIN) 1 mg tablet warfarin (COUMADIN) 1 mg tablet warfarin (COUMADIN) 5 mg tablet warfarin (COUMADIN) 5 mg tablet Admission/Clinic Administered Medications as of 07/13/18: Patient has no admission medications. 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] Hypercholesteremia [E78.00] Aortic stenosis [I35.0] Chronic atrial fibrillation (HCC) [I48.2] Positive for macroalbuminuria [R80.9] Screening for intestinal cancer [Z12.10] Diabetic nephropathy associated with type 2 diabetes mellitus (HCC) [E11.21] Bilateral leg edema [R60.0] Varicose veins of both legs with edema [I83.893] Chronic anticoagulation [Z79.01] Cough [R05] Obesity, Class I, BMI 30-34.9 [E66.9] Phimosis [N47.1] Severe aortic stenosis [I35.0] Dyslipidemia [E78.5] Uncontrolled type 2 diabetes mellitus without complication, without long-term current use of insulin (HCC) [E11.65] Allergies: Seasonal Allergies Date Verified: 07/12/18 Lab Values Lab Value Units Date High Low POTA* 4.5 mmol/L 07/12/2018 5.1 3.7 TYSON* 43.4 % 07/12/2018 51.0 39.0 Progress Notes (CARD CLINICAL MAIN): Madison Gregory MD 07/12/2018 5:30 PM Signed [facility] Department of Cardiovascular Medicine SECTION OF CLINICAL CARDIOLOGY OUTPATIENT VISIT DATE July 12, 2018 OUTPATIENT VISIT TYPE ESTABLISHED PRIMARY CARE PHYSICIAN: Macho Solorio, [address] [place] [address] CHIEF COMPLAINT: No chief complaint on file. HISTORY OF PRESENT ILLNESS: Mr. Kyle is a 68 year old male who presents today for a cardiovascular medicine follow-up visit . NURSING INTAKE Mr Kyle is a 68 year old male here today for cardiovascular medicine evaluation. He has a medical history significant for: -Aortic stenosis -Esophageal cancer s/p chemo/radiation -hypertension -hyperlipidemia -CHF -DM -Afib -smoker He was last seen in the office on 04/08/[address] Goldsmith for pre TAVR evaluation. Mr Kyle is scheduled for TAVR on 07/13/18. 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 Zach Howard - COLONOSCOPY 12/30/2016 - EGD BIOPSY SING OR MULT 01/22/2018 - EGD W/ BIOPSY SNGL/MLTPL 12/20/2016 - EGD W/O OR W/BRUSH/WASH 12/2012 EGD - EGD W/O OR W/BRUSH/WASH 04/14/2013 EGD - EGD W/O OR W/BRUSH/WASH 07/19/13 EGD - EGD W/O OR W/BRUSH/WASH 01/22/2018 antral biopsy, GE junction biopsy - HERNIA REPAIR HX umbilical SOCIAL HISTORY Social History Substance Use Topics - Smoking status: Current Some Day Smoker Packs/day: 2.00 Years: 50.00 Types: Cigarettes, Pipe, Cigars - Smokeless tobacco: Never Used Comment: attempting to quit - Alcohol use No FAMILY HISTORY Problem Relation Age of Onset - Stroke Mother - Stroke Father - other (tia) Father - Heart Brother - Diabetes Sister - Cancer Sister lymphoma x 2 - other (pneumonia) Maternal Grandmother - Stroke Maternal Grandfather - Cancer Paternal Grandfather - Stroke Paternal Grandmother ALLERGIES: ALLERGIES Allergen Reactions - Seasonal Allergies GI Upset headache MEDICATIONS: diltiazem CD (CARDIZEM CD) 120 mg 24 hr capsule Take 1 capsule by mouth once daily. furosemide (LASIX) 40 mg tablet Take 40 mg by mouth once daily. metFORMIN ER (GLUCOPHAGE XR) 500 mg 24 hr tablet Take 1 tablet by mouth twice daily before meals. GENERIC OKAY COMPOUNDED PRESCRIPTION Organically Bound Minerals COMPOUNDED PRESCRIPTION Cardiotrophin PMG COMPOUNDED PRESCRIPTION Forever Arctic C COMPOUNDED PRESCRIPTION Cataplex E2 warfarin (COUMADIN) 5 mg tablet Takes 5 mg tablet along with Warfarin 1 mg daily Thu-Thu-Thu warfarin (COUMADIN) 1 mg tablet TAKE 1 TABLET THU, THU, THU warfarin (COUMADIN) 5 mg tablet Take 5 mg by mouth daily as directed. warfarin (COUMADIN) 1 mg tablet Take 1 mg by mouth 3 times a WEEK. REVIEW OF SYSTEMS: positives in bold GENERAL: Negative for: Weight loss or gain, Fever or Chills, Weakness and Sleep difficulties. HEENT: Negative for: Headache, Impaired Vision, Glasses, Hearing Impairment, Ringing in Ears, Nosebleeds, Poor dental care, Bleeding Gums, Dentures NECK: Negative for: Swelling, Pain, Stiffness RESPIRATORY: Negative for: Cough, Blood in Sputum, Shortness of breath, Wheezing, Apnea GASTROINTESTINAL: Negative for: Trouble swallowing, Heartburn, Change in bowel habits, Blood in stool, Dark black stools MUSCULOSKELETAL: Negative for: Muscle or joint pain, Stiffness , Joint swelling NEUROLOGIC/PSYCHIATRIC: Negative for: Weakness, Paralysis, Numbness, Tingling, Tremor, Nervousness, Depressed mood, Memory loss SKIN: Negative for: Rashes, Itching HEMATOLOGICAL/LYMPHATIC: Negative for: Easy bruising , Easy bleeding ENDOCRINE: Negative for: Heat or cold intolerance, Excessive sweating, Frequent urination, Frequent thirst PHYSICAL EXAMINATION: BP 119/89 (BP Site: Left Arm, BP Cuff Size: Regular Adult) Pulse 118 Resp 14 Ht 177.8 cm (5' 10) Wt 97.1 kg (214 lb) SpO2 98% BMI 30.71 kg/m? General: Well appearing, in no acute distress. Skin: No clubbing, no cyanosis. Eyes: no icterus Neck: No jugular venous distention, no carotid bruits, carotids have a normal upstroke, no palpable thyromegaly. Lungs: Clear to auscultation bilaterally, no wheezing or rhonchi. Heart: irregularly irregular Systolic murmur /6 Abdomen: Soft, nontender, bowel sounds normal, no palpable organomegaly, no bruits. Extremities: No peripheral edema . Grade 2/4 distal pulses bilaterally. Neuro: Oriented to person, place and time, alert, cooperative, gait coordinated. CARDIOVASCULAR MEDICINE TESTING: Electrocardiogram: CTA CHEST/ABD/PEL (GATED) W IVCON 04/08/18 IMPRESSION: 1. ?Trileaflet aortic valve with severe leaflet calcifications. Details of anatomy and calcification are described above. 2. ?The thoracic aorta is tortuous distally. ?Mild ectasia of mid ascending aorta noted, measuring 4.0 cm (area 11.8 cm2). The reminder of the thoracic and abdominal aorta is normal in caliber. ?No acute aortic pathology identified. ?The pelvic arteries, including the common femoral arteries are mildly tortuous, with normal caliber and mild calcific wall changes. ?The minimal luminal caliber throughout = 7 mm in both common femoral arteries. 3. Few small (<5 mm) lung nodules noted, most of which are unchanged. 4. ?Ectopic right pelvic kidney. ECHO 04/08/18 CONCLUSIONS: - Technically difficult exam due to body habitus. - Exam indication: Routine surveillance of moderate or severe valvular stenosis (>1yr) - The left ventricle is normal in size. Left ventricular systolic function is normal. EF = 55 ? 5% (2D biplane) Definity contrast used for endocardial border detection. Left ventricular diastolic function was not evaluated due to AF. - The right ventricle is normal in size. Right ventricular systolic function is normal. - The left atrial cavity is severely dilated. - The right atrial cavity is severely dilated. - There is moderate (2+) holosystolic mitral valve regurgitation. Regurgitant orifice area (PISA) is 0.24 cm?. - Tricuspid aortic valve. There is low flow, low gradient, moderately severe aortic valve stenosis caused by calcified valve. AV area is 0.50 cm? (0.23 cm?/m?) ?by continuity, VTI. The peak gradient is 45 mmHg, the mean gradient is 27 mmHg and the dimensionless valve index is 0.18. Av gradient averaged today d/t AF rhythm. Prior pk/mn gradients 57/34mmHg - A PFO is noted by color on prior echo as well as clips 103, 122-124 - Exam was compared with the prior CC echocardiographic exam performed on 09/30/2016. There is no significant change. Component Latest Ref Rng AND Units 04/08/2018 07/12/2018 WBC 3.70 - 11.00 k/uL 6.67 7.38 RBC 4.20 - 6.00 m/uL 4.36 4.35 Hemoglobin 13.0 - 17.0 g/dL 14.2 14.1 Hematocrit 39.0 - 51.0 % 42.7 43.4 MCV 80.0 - 100.0 fL 97.9 99.8 MCH 26.0 - 34.0 pG 32.6 32.4 MCHC 30.5 - 36.0 g/dL 33.3 32.5 RDW-CV 11.5 - 15.0 % 15.3 (H) 14.6 Platelet Count 150 - 400 k/uL 180 180 MPV 9.0 - 12.7 fL 12.4 11.8 Neut% % 59.2 Abs Neut (ANC) 1.45 - 7.50 k/uL 3.92 Lymph% % 25.3 Abs Lymph 1.00 - 4.00 k/uL 1.69 Howard% % 11.5 Abs Howard <0.87 k/uL 0.77 Eosin% % 3.1 Abs Eosin <0.46 k/uL 0.21 Baso% % 0.9 Abs Baso <0.11 k/uL 0.06 Nucleated Reds 0 /100 WBC 0.0 Absolute nRBC <0.01 k/uL <0.01 <0.01 Diff Type Auto Diff Protein, Total 6.3 - 8.0 g/dL 8.2 (H) Albumin 3.9 - 4.9 g/dL 4.1 Calcium 8.5 - 10.2 mg/dL 9.5 Bilirubin, Total 0.2 - 1.3 mg/dL 1.5 (H) Alkaline Phosphatase 36 - 108 U/L 71 AST 14 - 40 U/L 21 Glucose 74 - 99 mg/dL 129 (H) BUN 9 - 24 mg/dL 15 Creatinine 0.73 - 1.22 mg/dL 0.98 Sodium 136 - 144 mmol/L 138 Potassium 3.7 - 5.1 mmol/L 4.4 Chloride 97 - 105 mmol/L 99 CO2 22 - 30 mmol/L 29 Anion Gap 9 - 18 mmol/L 10 ALT 10 - 54 U/L 18 eGFR- >60 eGFR-All Other Races . >60 Hemoglobin A1C 4.3 - 5.6 % 8.2 (H) Estimated Average Glucose mg/dL 189 PT Sec 9.7 - 13.0 sec 12.4 PT INR 0.9 - 1.3 1.2 NT Pro BNP <125 pg/mL 978 (H) I have personally reviewed the Electrocardiogram, Laboratory Testing and Echocardiogram. IMPRESSION: Mr. Kyle is a 68 year old male with h/o esophageal cancer treated with radiation and chemotherapy 2014. Also h/o chronic afib since 2009 on AC with warfarin. Now with severe symptomatic likely exacerbated by radiation therapy Was seen by my colleague Dr Goldsmith in the past and considered for TAVR The patient has mitral anular calcification. He underwent a comprehensive workup for TAVR including CTA [facility] 12/29/2017 (report available) He was recently evaluated by EGD in january and this revealed no recurrence of esophageal cancer. He has 2 + MR Preserved LVEF Small PFO by echo The patient was seen by CTS colleagues (Jaison Ivan and [place]) who confirmed that it is reasonable to consider TAVR He has good RF access + COPD related to smoking Elevated left hemidiaphragm Exam Well compensated No acute distress In afib with relatively fast V rate Systolic murmur. I agree with plan for TAVR and Watch-TAVR study protocol. Below is the rational Mr. Jyade Kyle has a history of non valvular AF. He is at increased risk for stroke and systemic embolism based on a [id number], Winder LS, Zach JS, et. al., 2014 AHA/ACC/HRS Guideline for the Management of Patients With Atrial Fibrillation A Report of the [place] [employer]/[place] [employer] Association Task Force on Practice Guidelines and the Heart Rhythm Society, Circulation, 2014; 130: [id number]. Score of 4 and is recommended for anticoagulation therapy. Mr. Kyle is being referred for a Watchman Device as an alternative to oral anticoagulation and he has been found to be suitable for short term oral anticoagulation however is unable to take jail oral anticoagulation for the following reasons: h/o gastroesophageal cancer with prior bleeding The rationale for this procedure over pharmacologic therapy includes: the risk of bleeding taking into account the safety and effectiveness of the device based on clinical trials. A formal shared decision was reached with Jayde Kyle. Through the use of the shared decision making tool, he has made the decision to have this device implanted with hopes of eliminating continued necessity for the long-term use of oral anticoagulation. I feel that Jayde Kyle will benefit greatly from this procedure. In addition to atrial fibrillation, he also suffers from (list all other health-related conditions that patient suffers from and include diagnoses that apply. Provide a brief description of patient?s therapies, including medical management, to date.) Madison Gregory M.D. [facility] Staff Chronometer Adjuster [facility] [place] [id number] [phone] Previous Version Progress Notes (CARD INTERVENTION MAIN): Marcela Ferrer, RN, RN 07/12/2018 2:33 PM Sign at close encounter Baseline Visit IRB #[id number] WATCH ? TAVR (WATCHMAN for Patients with Atrial Fibrillation Undergoing Transcatheter Aortic Valve Replacement) PI: Dr. Mj Blair I met with the patient for the baseline visit of the WATCH ? TAVR study Reaffirmed that the patient still wishes to participate in the study and continues to consent to the study. Medications and allergy lists updated and current. Patient was randomized to {WATCH-TAVR Randomization:[id number]} NIHSS: 1a: Mental Status - LOC 0 = Alert and Attentive 1b. LOC Questions 0 = Correct age and month 1c LOC-Commands 0 = Both 2. Gaze 0 = Normal 3. Visual Capps 0 = Full 4. Facial Weakness 0 = Normal 5a. Left Arm 0 = No drift (10 sec) 5b. Right Arm 0 = No drift (10 sec) 6a.. Left Leg 0 = No drift 6b. Right Leg 0 = No drift 7. Ataxia 0 = Absent 8. Sensory 0 = Normal 9. Aphasia 0 = None 10. Dysarthria 0 = Absent 11. Neglect 0 = None NIHSS total = 0 Modified Huber Scale: yes: 0 = No symptoms KCCQ-12 QOL completed: Yes Patient was reminded to take the 81 mg Aspirin the day before the procedure: Yes Thanked patient for participation in the trial and reminded them of their next study visit at pre-discharge. Discussed with the patient the importance of follow up in the study. he verbalized understanding. Patient contact information reaffirmed and updated. Updated coordinator contact information was given to the patient. Education provided: Protocol required tests/procedures and Follow up requirements/schedule Materials dispensed: contact card Marcela Ferrer RN Pager # [phone] PROGRESS Observed: 05/17/2018 Status: COMPLETED Source: [place] 7:43 AM [facility] HNO ID: [id number] Author: Macho Solorio Service: (none) Author Type: Physician Type: Progress Notes Filed: 05/17/2018 7:50 AM Note Text: Patient presents with: Follow Up: 3 months HPI: Jayde Kyle is a 68 year old male who presents to the office today for review of health conditions. Concerns today: Will have upcoming aortic valve replacements surgery per Cardiothoracic surgeon for severe Aortic stenosis, he is likely to have bovine valve per specialist. He is a little nervous about this procedure but has a lot of support from family and friends. Does admit to shortness of breath at rest and increased with exertion as well as general fatigue, does feel this is slightly better than during the summer time. Mr. Kyle has past history of diabetes. Since our last visit he denies excessive thirst or increased frequency of urination, chest pain or dyspnea , new or unusual visual symptoms and low sugar/hypoglycemic reactions. Follows a diabetic diet some of the time. He is compliant with medication(s) and is tolerating med(s) without any side effects. He reports checking his glucose on a once a day. Patient's last HgA1C was Hemoglobin A1C (%) Date Value 04/08/2018 8.2 08/05/2017 9.1 ) Last Ophthalmology exam was within the past 12 months Mr. Kyle reports history of hyperlipidemia. Current therapy includes no current treatment. Denies side effects of muscle weakness or achiness. His most recent lipid panels are reviewed. Cholesterol, Total (mg/dL) Date Value 08/05/2017 180 HDL Cholesterol (mg/dL) Date Value 08/05/2017 34 LDL Cholesterol (mg/dL) Date Value 08/05/2017 126 Triglyceride (mg/dL) Date Value 08/05/2017 98 Mr. Kyle indicates a history of hypertension and states that he is feeling well and denies any symptoms referable to elevated blood pressure. Specifically denies headache, chest pain, palpitations, dyspnea and peripheral edema. Patient denies any side effects of his medication(s) and is compliant with their regimen. Last 3 Encounter BP Readings: Date: BP: 05/14/2018 100/60 04/08/2018 133/83 02/10/2018 100/60 He watches his diet for sodium, low fat and low cholesterol some of the time. He does not check BP's generally. Jayde gets sporadic irregular exercise. 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 Rarely cedar. Social History Main Topics Smoking status: Current Every Day Smoker Packs/day: 2.00 Years: 50.00 Types: Cigarettes, Pipe, Cigars Smokeless tobacco: Never Used Comment: attempting to quit Alcohol use: No Drug use: No Social History Narrative GE adenocarcinoma- poorly undiffentiated, Dr. Rose Marie Booker and Dr. Bibiana Workman MD FAMILY HISTORY Problem Relation Age of Onset - Stroke Mother - Stroke Father - other (tia) Father - Heart Brother - Diabetes Sister - Cancer Sister lymphoma x 2 - other (pneumonia) Maternal Grandmother - Stroke Maternal Grandfather - Cancer Paternal Grandfather - Stroke Paternal Grandmother Allergies: ALLERGIES Allergen Reactions - Seasonal Allergies GI Upset headache Current Meds: warfarin (COUMADIN) 5 mg tablet TAKE 1 TABLET DAILY ON THU, THU, THU, SAT, SUN warfarin (COUMADIN) 5 mg tablet Take 5 mg by mouth daily as directed. warfarin (COUMADIN) 1 mg tablet Take 1 mg by mouth 3 times a WEEK. diltiazem CD (CARDIZEM CD) 120 mg 24 hr capsule Take 1 capsule by mouth once daily. furosemide (LASIX) 40 mg tablet Take 40 mg by mouth once daily. metFORMIN ER (GLUCOPHAGE XR) 500 mg 24 hr tablet Take 1 tablet by mouth twice daily before meals. GENERIC OKAY COMPOUNDED PRESCRIPTION Organically Bound Minerals COMPOUNDED PRESCRIPTION Cardiotrophin PMG COMPOUNDED PRESCRIPTION Cataplex E2 COMPOUNDED PRESCRIPTION Forever Arctic C Review of Systems: The remainder of the review of systems is negative. PE: 05/14/18 1411 BP: 100/60 Pulse: 80 Resp: 20 Temp: 36.2 ?C (97.1 ?F) TempSrc: Left Tympanic Weight: 97.1 kg (214 lb) Gen: AANDO, NAD, non-toxic appearing, Pleasant, cooperative HEENT: NT/AC, PERRLA, EOMs intact b/l, nares clear and patent b/l, pharynx without erythema, exudate or lesions. Uvula midline. MMM Neck: supple, No cervical LAD, no thyromegaly, no carotid bruits CV: RRR, normal S1 S2, 3/6 HSM harsh rusb radiating to carotid arteries murmur, no gallops, no rubs, Pulses 2+ and symmetric in UE and LE b/l Lungs: normal respiratory effort, CTA b/l, no wheezing or rhonchi or rales, intermittent dry cough Abd: soft, overweight, NT, ND, +BS, no hepatosplenomegaly MS: slightly antalgic/slowed gait Neuro: CN II-XII intact b/l Skin: warm, dry, intact, No rashes or lesions on exposed skin. Foot exam: no ulcerations, hemosiderin staining left >right lower leg, no edema ASSESSMENT/PLAN: 1. Uncontrolled type 2 diabetes mellitus without complication, without long-term current use of insulin (HCC) - ICD9: 250.02, ICD10: E11.65 (primary diagnosis) Better controlled, improved Poor adherence to plan of care. - Continue current medications - Blood glucose monitoring on a once a day schedule 2. Chronic atrial fibrillation (HCC) - ICD9: 427.31, ICD10: I48.2 - continue Coumadin, stable 3. Chronic anticoagulation - ICD9: V58.61, ICD10: Z79.01 - see above, continue coumadin 4. Severe aortic stenosis - ICD9: 424.1, ICD10: I35.0 - f/u with surgeon, need for upcoming valve replacement surgery 5. Dyslipidemia - ICD9: 272.4, ICD10: E78.5 - suboptimal control - Encouraged following a low fat, low cholesterol diet. - Discussed the benefits of regular aerobic exercise and weight loss. 6. Cough - ICD9: 786.2, ICD10: R05 - stable, no signs of infection 7. Obesity, Class I, BMI 30-34.9 - ICD9: 278.00, ICD10: E66.9 - Lengthy discussion in office today regarding diet and exercise. Discussed use of small plate to eat meals from, drink 1 glass of water 10-15 minutes prior to eating meal, drink 8 glasses of water daily, eat fresh fruit and vegetable during meal first then lean protein such as grilled/baked chicken breast or fish, limit carbohydrate intake (less pasta, breads, rice and snack foods) as well as limiting sugars (desserts etc). Important to count / track your calories and exercise as well. Macho Solorio DO To ER if develops chest pain, shortness of breath, or severe worsening of symptoms. Discussed risks, benefits, alternatives, and potential side effects of medications. Patient expressed understanding and agreed with the plan. Macho Solorio DO [address] [place] [address] PROGRESS Observed: 05/14/2018 Status: COMPLETED Source: [place] 4:19 PM [facility] HNO ID: [id number] Author: Lilian Yadav LPN Service: (none) Author Type: (none) Type: Progress Notes Filed: 05/14/2018 4:19 PM Note Text: Pt. informed Appt. made. Lilian Yadav LPN PROGRESS Observed: 05/14/2018 Status: COMPLETED Source: [place] 4:15 PM [facility] HNO ID: [id number] Author: Macho Solorio Service: (none) Author Type: Physician Type: Progress Notes Filed: 05/14/2018 4:19 PM Note Text: Continue same dose, recheck INR 1 week Macho Solorio DO PROGRESS Observed: 05/14/2018 Status: COMPLETED Source: [place] 3:30 PM [facility] HNO ID: [id number] Author: Elisabeth Dos Santos RN Service: (none) Author Type: (none) Type: Progress Notes Filed: 05/14/2018 3:32 PM Note Text: patient had inr completed at [facility] patients inr is 1.9 (patients inr range is 2.0-3.0) patient is currently taking 6mg Mon,Wed,Fri and 5mg all other days patients last dose change was on 09/30/16 due to a low level of 1.5 (dose at that time was 6mg Mon,Fri and 5mg all other days) patient has had no changes in medication and no missed doses and no change in diet pt has appt with pcp today also and has been instructed to discuss information at appt. CURT Observed: 05/14/2018 Status: COMPLETED Source: [place] 2:00 PM [facility] Office Visit (FAMPWS) JAYDE KYLE ([id number]) 1950 M Date Time Provider Department 05/14/18 2:00 PM [facility] your visit today, we recorded the following information about you: Temperature Pulse Respiration Blood pressure 97.1 degrees 80/minute 20/minute 100/60 Weight 97.1 kg Macho Solorio DO 05/14/2018 2:40 PM Signed Mucinex generic 600 mg twice a day if having chest congestion (Guaifenasin) Macho Solorio DO 05/17/2018 7:50 AM Signed Patient presents with: Follow Up: 3 months HPI: Jayde Kyle is a 68 year old male who presents to the office today for review of health conditions. Concerns today: Will have upcoming aortic valve replacements surgery per Cardiothoracic surgeon for severe Aortic stenosis, he is likely to have bovine valve per specialist. He is a little nervous about this procedure but has a lot of support from family and friends. Does admit to shortness of breath at rest and increased with exertion as well as general fatigue, does feel this is slightly better than during the summer time. Mr. Kyle has past history of diabetes. Since our last visit he denies excessive thirst or increased frequency of urination, chest pain or dyspnea , new or unusual visual symptoms and low sugar/hypoglycemic reactions. Follows a diabetic diet some of the time. He is compliant with medication(s) and is tolerating med(s) without any side effects. He reports checking his glucose on a once a day. Patient's last HgA1C was Hemoglobin A1C (%) Date Value 04/08/2018 8.2 08/05/2017 9.1 ) Last Ophthalmology exam was within the past 12 months Mr. Kyle reports history of hyperlipidemia. Current therapy includes no current treatment. Denies side effects of muscle weakness or achiness. His most recent lipid panels are reviewed. Cholesterol, Total (mg/dL) Date Value 08/05/2017 180 HDL Cholesterol (mg/dL) Date Value 08/05/2017 34 LDL Cholesterol (mg/dL) Date Value 08/05/2017 126 Triglyceride (mg/dL) Date Value 08/05/2017 98 Mr. Kyle indicates a history of hypertension and states that he is feeling well and denies any symptoms referable to elevated blood pressure. Specifically denies headache, chest pain, palpitations, dyspnea and peripheral edema. Patient denies any side effects of his medication(s) and is compliant with their regimen. Last 3 Encounter BP Readings: Date: BP: 05/14/2018 100/60 04/08/2018 133/83 02/10/2018 100/60 He watches his diet for sodium, low fat and low cholesterol some of the time. He does not check BP's generally. Jayde gets sporadic irregular exercise. 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 Rarely cedar. Social History Main Topics Smoking status: Current Every Day Smoker Packs/day: 2.00 Years: 50.00 Types: Cigarettes, Pipe, Cigars Smokeless tobacco: Never Used Comment: attempting to quit Alcohol use: No Drug use: No Social History Narrative GE adenocarcinoma- poorly undiffentiated, Dr. Rose Marie Booker and Dr. Bibiana Workman MD FAMILY HISTORY Problem Relation Age of Onset - Stroke Mother - Stroke Father - other (tia) Father - Heart Brother - Diabetes Sister - Cancer Sister lymphoma x 2 - other (pneumonia) Maternal Grandmother - Stroke Maternal Grandfather - Cancer Paternal Grandfather - Stroke Paternal Grandmother Allergies: ALLERGIES Allergen Reactions - Seasonal Allergies GI Upset headache Current Meds: warfarin (COUMADIN) 5 mg tablet TAKE 1 TABLET DAILY ON THU, THU, THU, SAT, SUN warfarin (COUMADIN) 5 mg tablet Take 5 mg by mouth daily as directed. warfarin (COUMADIN) 1 mg tablet Take 1 mg by mouth 3 times a WEEK. diltiazem CD (CARDIZEM CD) 120 mg 24 hr capsule Take 1 capsule by mouth once daily. furosemide (LASIX) 40 mg tablet Take 40 mg by mouth once daily. metFORMIN ER (GLUCOPHAGE XR) 500 mg 24 hr tablet Take 1 tablet by mouth twice daily before meals. GENERIC OKAY COMPOUNDED PRESCRIPTION Organically Bound Minerals COMPOUNDED PRESCRIPTION Cardiotrophin PMG COMPOUNDED PRESCRIPTION Cataplex E2 COMPOUNDED PRESCRIPTION Forever Arctic C Review of Systems: The remainder of the review of systems is negative. PE: 05/14/18 1411 BP: 100/60 Pulse: 80 Resp: 20 Temp: 36.2 ?C (97.1 ?F) TempSrc: Left Tympanic Weight: 97.1 kg (214 lb) Gen: AANDO, NAD, non-toxic appearing, Pleasant, cooperative HEENT: NT/AC, PERRLA, EOMs intact b/l, nares clear and patent b/l, pharynx without erythema, exudate or lesions. Uvula midline. MMM Neck: supple, No cervical LAD, no thyromegaly, no carotid bruits CV: RRR, normal S1 S2, 3/6 HSM harsh rusb radiating to carotid arteries murmur, no gallops, no rubs, Pulses 2+ and symmetric in UE and LE b/l Lungs: normal respiratory effort, CTA b/l, no wheezing or rhonchi or rales, intermittent dry cough Abd: soft, overweight, NT, ND, +BS, no hepatosplenomegaly MS: slightly antalgic/slowed gait Neuro: CN II-XII intact b/l Skin: warm, dry, intact, No rashes or lesions on exposed skin. Foot exam: no ulcerations, hemosiderin staining left >right lower leg, no edema ASSESSMENT/PLAN: 1. Uncontrolled type 2 diabetes mellitus without complication, without long-term current use of insulin (HCC) - ICD9: 250.02, ICD10: E11.65 (primary diagnosis) Better controlled, improved Poor adherence to plan of care. - Continue current medications - Blood glucose monitoring on a once a day schedule 2. Chronic atrial fibrillation (HCC) - ICD9: 427.31, ICD10: I48.2 - continue Coumadin, stable 3. Chronic anticoagulation - ICD9: V58.61, ICD10: Z79.01 - see above, continue coumadin 4. Severe aortic stenosis - ICD9: 424.1, ICD10: I35.0 - f/u with surgeon, need for upcoming valve replacement surgery 5. Dyslipidemia - ICD9: 272.4, ICD10: E78.5 - suboptimal control - Encouraged following a low fat, low cholesterol diet. - Discussed the benefits of regular aerobic exercise and weight loss. 6. Cough - ICD9: 786.2, ICD10: R05 - stable, no signs of infection 7. Obesity, Class I, BMI 30-34.9 - ICD9: 278.00, ICD10: E66.9 - Lengthy discussion in office today regarding diet and exercise. Discussed use of small plate to eat meals from, drink 1 glass of water 10- 15 minutes prior to eating meal, drink 8 glasses of water daily, eat fresh fruit and vegetable during meal first then lean protein such as grilled/baked chicken breast or fish, limit carbohydrate intake (less pasta, breads, rice and snack foods) as well as limiting sugars (desserts etc). Important to count / track your calories and exercise as well. Macho Solorio DO To ER if develops chest pain, shortness of breath, or severe worsening of symptoms. Discussed risks, benefits, alternatives, and potential side effects of medications. Patient expressed understanding and agreed with the plan. Macho Solorio DO [address] [place] [address] Referring Provider: MACHO SOLORIO [[id number]] Allergies As of Date: 05/14/2018 Noted Allergy Reaction SEASONAL ALLERGIES 10/04/2012 8 - GI Upset Comments: headache Date Reviewed: 05/14/2018 Reviewed by: Lilian Yadav LPN - Fully Assessed Reason for Visit: Follow Up [171] Cmt: 3 months Primary Visit Diagnosis:Uncontrolled type 2 diabetes mellitus without complication, without long-term current use of insulin (HCC) [E11.65] Other Visit Diagnoses:Chronic atrial fibrillation (HCC) [I48.2] Chronic anticoagulation [Z79.01] Severe aortic stenosis [I35.0] Dyslipidemia [E78.5] Cough [R05] Obesity, Class I, BMI 30-34.9 [E66.9] Order(s):INR (POC) [2236959] Order #: [id number]. #:[id number] Prescriptions as of 05/14/2018 Sig: WARFARIN 5 MG TABLET TAKE 1 TABLET DAILY ON * WARFARIN 5 MG TABLET Take 5 mg by mouth daily as d* WARFARIN 1 MG TABLET Take 1 mg by mouth 3 times a * DILTIAZEM SR 120 MG 24 HR CAP Take 1 capsule by mouth once * FUROSEMIDE 40 MG TABLET Take 40 mg by mouth once dalia* METFORMIN ER 500 MG TABLET,EX* Take 1 tablet by mouth twice * COMPOUNDED PRESCRIPTION Organically Bound Minerals COMPOUNDED PRESCRIPTION Cardiotrophin PMG COMPOUNDED PRESCRIPTION Cataplex E2 COMPOUNDED PRESCRIPTION Forever Arctic C Problem List As Of Date 05/14/2018 Noted Resolved 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] INVALID [...] Class I, BMI 30-34.9 [E66.9] INVALID FOR* Phimosis [N47.1] INVALID FOR* Severe aortic stenosis [I35.0] INVALID FOR* Dyslipidemia [E78.5] INVALID FOR* Uncontrolled type 2 diabetes mellitus without c*INVALID FOR* Leg ulcer, left, limited to breakdown of skin (*INVALID FOR* Other instructions from your clinician: Mucinex generic 600 mg twice a day if having chest congestion (Guaifenasin) Encounter Status:Closed by MACHO SOLORIO DO on 05/17/18 LAURITA Observed: 05/10/2018 Status: COMPLETED Source: [place] 12:00 AM [facility] RE[facility] Telephone (NitroSellMN) JAYDE KYLE ([id number]) 1950 M Date Time Provider Department 05/10/18 CATHIE VIVAR ([facility]) [place] During your visit today, we recorded the following information about you: Cathie Vivar RN APRN.LORAINE 05/10/2018 2:45 PM Signed Attempted to contact Mr. Kyle. Tried number listed at home/work; unable to get through. Attempted spouse's mobile number; left a voice message. Need to discuss the recommendations from the valve team meeting from 04/19/2018. Cathie Vivar RN APRN.LORAINE Vivar RN APRN.LORAINE 05/10/2018 3:43 PM Signed I spoke with Mrs. Kyle on the phone regarding potential dates: TAVR procedure on 07/13/2018; pre-op on Thursday07/12/2018. Dates accepted. He had an endoscopy completed in December by Dr. Chilango Chávez at [place]. Will request the report/findings. Dr. Blair recommended a GI consult prior to ELIO. I told her that he will need to stop his coumadin on 07/08/2018. He does not need to be fasting for his pre-op testing. He can have breakfast and take his medications. No other medications need to be stopped. Cathie Vivar RN APRN.LORAINE Vivar RN APRN.LORAINE 05/10/2018 3:43 PM Signed Addended by: CATHIE BHAGAT on: 05/10/2018 03:43 PM Modules accepted: Orders, SmartSet Allergies As of Date: 05/10/2018 Noted Allergy Reaction SEASONAL ALLERGIES 10/04/2012 8 - GI Upset Comments: headache Date Reviewed: 04/08/2018 Reviewed by: Jaycob (Rn) MYRIAM Tadeo - Fully Assessed Reason for Visit: TAVR procedure [Other] Primary Visit Diagnosis:Severe aortic stenosis [I35.0] Order(s):COMP METABOLIC PANEL [SQCMP] Order #: [id number] TYPE + SCREEN [SQTSCR] Order #: [id number] HAPTOGLOBIN BLD [SQHAPTO] Order #: [id number] CBC + DIFF [SQCBCDIF] Order #: [id number] PROTHROMBIN TIME/PT [SQPT] Order #: [id number] ACTIVATED PTT [SQPTT] Order #: [id number] CK CREATINE KINASE [SQCK] Order #: [id number] CKMB ONLY [SQMBE] Order #: [id number] NT PRO BNP [SQNTBNP] Order #: [id number] ECHO TRANSESOPHAGEAL [88001814] Order #: [id number]: 1 FUTURE ECG COMPLETE W INTERPRETATION [ECG01] Order #: [id number] FUTURE XR CHEST 2V FRONTAL/LAT [[id number]] Order #: [id number] FUTURE CONFIRM BLOOD TYPE [SQCONABO] Order #: [id number] FUTURE PREOP RED BLOOD CELLS [SQPRERC] Order #: [id number] Prescriptions as of 05/10/2018 Sig: WARFARIN 5 MG TABLET TAKE 1 TABLET DAILY ON * WARFARIN 5 MG TABLET Take 5 mg by mouth daily as d* WARFARIN 1 MG TABLET Take 1 mg by mouth 3 times a * DILTIAZEM SR 120 MG 24 HR CAP Take 1 capsule by mouth once * FUROSEMIDE 40 MG TABLET Take 40 mg by mouth once dalia* METFORMIN ER 500 MG TABLET,EX* Take 1 tablet by mouth twice * COMPOUNDED PRESCRIPTION Organically Bound Minerals COMPOUNDED PRESCRIPTION Cardiotrophin PMG COMPOUNDED PRESCRIPTION Forever Arctic C COMPOUNDED PRESCRIPTION Cataplex E2 Problem List As Of Date 05/10/2018 Noted Resolved 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] INVALID [...] Class I, BMI 30-34.9 [E66.9] INVALID FOR* Phimosis [N47.1] INVALID FOR* Severe aortic stenosis [I35.0] INVALID FOR* Dyslipidemia [E78.5] INVALID FOR* Uncontrolled type 2 diabetes mellitus without c*INVALID FOR* Leg ulcer, left, limited to breakdown of skin (*INVALID FOR* Encounter Status:Closed by CATHIE BHAGAT on 05/10/18 PROGRESS Observed: 04/19/2018 Status: COMPLETED Source: [place] 3:44 PM [facility] HNO ID: [id number] Author: Rosa Espinal (Cns) Service: (none) Author Type: Nurse Specialist Type: Progress Notes Filed: 04/19/2018 3:46 PM Note Text: MULTI DISCIPLINARY HIGH RISK AVR CARDIAC TEAM Members present: Dr. Patel, Dr. Blair, Dr. Fletcher, Dr. Lopez, Dr. Welsey, Dr. Ivan, Dr. Montero, Dr. Winchester, Dr. Aragon, Emilio BARON, Ray BARON, Jazmin Bui RN Presenting Physician: Dr. Blair on behalf of Dr Goldsmith PATIENT NAME: Jayde Kyle DATE: April 19, 2018 Outcome: Jayde Kyle 's history and imaging were reviewed by the physicians in attendance. CTA images reviewed. The collaborative recommendation would be TAVR, Bennett S3, transfemoral approach. Screen for WATCH-TAVR study. Our office will contact the patient in the next few weeks to schedule a TAVR procedure date and to review pre procedure instructions. TAVR procedure scheduling will be handled by Our Office (Intervention). Rosa Espinal RN APRN.SUPERVISOR PA[employer] ROLL[employer]OVERS PROGRESS Observed: 04/19/2018 Status: COMPLETED Source: [place] 12:18 AM [facility] HNO ID: [id number] Author: Josué Ivan Service: (none) Author Type: Physician Type: Progress Notes Filed: 04/19/2018 12:19 AM Note Text: CHART COPY DO NOT DISCARD Patient Type: Consult Visit to determine Surgery: Yes PCP: Macho Solorio DO [address] [place] [address] Referring Physician:: Kai Goldsmith MD [id number] [facility] [address] HPI: Mr. Jayde Kyle is a 68 year old male seen in consultation at the request of Kai Goldsmith for opinion regarding treatment options for Aortic Stenosis. He is currently symptomatic and complains of shortness of breath. PMH notable for esophageal cancer treated with chemo/radiation. The Echocardiogram reveals aortic stenosis. Based on my evaluation he is a medium risk for open heart surgery. Impression: Aortic Stenosis, s/p radiation Plan:would recommend TAVR I spent 30 minutes in this visit, with more than 50% of the time devoted to patient counseling. These findings will be communicated back to the requesting physician via electronic medical record Josué Ivan MD HOSP Observed: 04/19/2018 Status: COMPLETED Source: [place] 12:00 AM [facility] Patient Update (CATHMN) JAYDE KYLE ([id number]) 1950 M Date Time Provider Department 04/19/18 ROSA ESPINAL ([employer]) CATHMN During your visit today, we recorded the following information about you: Rosa Espinal RN 1ST GRADE TEACHER.SUPERVISOR PA[employer] 04/19/2018 3:46 PM Signed MULTI DISCIPLINARY HIGH RISK AVR CARDIAC TEAM Members present: Dr. Patel, Dr. Blair, Dr. Fletcher, Dr. Lopez, Dr. Wesley, Dr. Ivan, Dr. Montero, Dr. Winchester, Dr. Aragon, Ray Cadena B. McCullough RN Presenting Physician: Dr. Blair on behalf of Dr Goldsmith PATIENT NAME: Jayde Kyle DATE: April 19, 2018 Outcome: Jayde Kyle 's history and imaging were reviewed by the physicians in attendance. CTA images reviewed. The collaborative recommendation would be TAVR, Bennett S3, transfemoral approach. Screen for WATCH-TAVR study. Our office will contact the patient in the next few weeks to schedule a TAVR procedure date and to review pre procedure instructions. TAVR procedure scheduling will be handled by Our Office (Intervention). Rosa Espinal RN 1ST GRADE TEACHER.SUPERVISOR PA[employer] RO[employer] Allergies As of Date: 04/19/2018 Noted Allergy Reaction SEASONAL ALLERGIES 10/04/2012 8 - GI Upset Comments: headache Date Reviewed: 04/08/2018 Reviewed by: Jaycob (Rn) MYRIAM Tadeo - Fully Assessed Reason for Visit: Patient Update [1234] Cmt: TAVR Team Review Prescriptions as of 04/19/2018 Sig: WARFARIN 5 MG TABLET Take 5 mg by mouth daily as d* WARFARIN 1 MG TABLET Take 1 mg by mouth 3 times a * DILTIAZEM SR 120 MG 24 HR CAP Take 1 capsule by mouth once * FUROSEMIDE 40 MG TABLET Take 40 mg by mouth once dalia* METFORMIN ER 500 MG TABLET,EX* Take 1 tablet by mouth twice * COMPOUNDED PRESCRIPTION Organically Bound Minerals COMPOUNDED PRESCRIPTION Cardiotrophin PMG COMPOUNDED PRESCRIPTION Forever Arctic C COMPOUNDED PRESCRIPTION Cataplex E2 Problem List As Of Date 04/19/2018 Noted Resolved 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] INVALID [...] Class I, BMI 30-34.9 [E66.9] INVALID FOR* Phimosis [N47.1] INVALID FOR* Severe aortic stenosis [I35.0] INVALID FOR* Dyslipidemia [E78.5] INVALID FOR* Uncontrolled type 2 diabetes mellitus without c*INVALID FOR* Leg ulcer, left, limited to breakdown of skin (*INVALID FOR* Encounter Status:Closed by ROSA MCMAHON RN on 04/19/18 PROGRESS Observed: 04/12/2018 Status: COMPLETED Source: [place] 3:41 PM [facility] HNO ID: [id number] Author: Rosa Espinal (Cns) Service: (none) Author Type: Nurse Specialist Type: Progress Notes Filed: 04/12/2018 3:46 PM Note Text: [facility] [place] [facility] Department of Cardiovascular Medicine SECTION OF INTERVENTIONAL CARDIOLOGY OUTPATIENT VISIT DATE April 12, 2018 OUTPATIENT VISIT TYPE ESTABLISHED PRIMARY CARE PHYSICIAN: Macho Solorio DO [address] [place] [address] PRIMARY PARKING REGULATION ENFORCEMENT OFFICER: Dr Goldsmith CHIEF COMPLAINT: Dyspnea with exertion HISTORY OF PRESENT ILLNESS: Mr. Kyle is a 68 year old male who presents today accompanied by his family for education related to aortic valve stenosis and the TAVR procedure. AMBULATORY PATIENT EDUCATION NOTE TOPIC: Aortic valve stenosis, TAVR procedure, [place] embolic cerebral protection device READINESS TO LEARN COGNITIVE ABILITY: Alert and oriented MOTIVATION TO LEARN: Interested FAMILY SUPPORT: High - Very involved in pt care INSTRUCTION PROVIDED TO: Patient and family member PATIENT LEARNS BEST BY: Multiple Methods FACTORS AFFECTING LEARNING: Cultural Factors: Cheondoism PHYSICAL LIMITATIONS AFFECTING LEARNING: None LEARNING RESPONSE DIAGNOSIS: Aortic valve stenosis METHOD OF INSTRUCTION: Verbal instruction Demonstration-Hands on Learning Video PATIENT / FAMILY RESPONSE: Information received as demonstrated by interest and questions FOLLOW-UP PLAN: Follow up phone call. SUPPLEMENTAL MATERIAL: None REFERRAL (RECOMMENDATION): None Frailty Index Criteria Measured: Ht 179 cm (5' 10.47) Wt 96.1 kg (211 lb 13.8 oz) BMI 29.99 kg/m? Frailty scale for 15 foot walk: MEN WOMEN Ht <173 cm > 7 seconds Ht < 159 cm > 7 seconds Ht > 173 cm > 6 seconds Ht > 159 cm > 6 seconds Patient's 15-Foot Walk: Time to complete walk = 6.29 seconds Cantu Activities of Daily Living 1 = Independent (No supervision, direction of personal assistance) 0 = Dependent ( WITH supervision, direction, personal assistance or total care) Bathing Points 1 Dressing Points 1 Toileting Points 1 Transferring Points 1 Continence 1 Feeding Points 1 Total Points = 6/6 Electronically Signed By: Rosa Espinal RN 1ST GRADE TEACHER.SUPERVISOR PA[employer] RO[employer]OVERS In Department: CARDIOLOGY PROGRESS Observed: 04/12/2018 Status: COMPLETED Source: [place] 1:53 PM [facility] [place] REPOSITORY HNO ID: [id number] Author: Ngozi (Myriam) MYRIAM Jean Service: (none) Author Type: Registered Nurse Type: Progress Notes Filed: 05/28/2018 12:37 PM Note Text: IRB [id number] WATCH-TAVR Protocol Watchman for Patients with AF Undergoing Transcath AVR PI: Dr. Buzz Blair Study explained/reviewed with patient. Study related follow-up requirements were discussed. Risks, benefits, alternatives, personnel, and costs of the study explained/reviewed. Patient reviewed informed consent. Study related questions were addressed. The patient verbalized understanding of the study and stated that they would like to think about participation. contract administration coordinator explained that in order to move forward with the research study informed consent needs to be signed. A copy of the consent form was given to the patient to review. contract administration coordinator contact information provided. Ngozi Lund RN Pager [phone] 05/28/18 -Spoke with patient's son and son stated patient would like to participate in this study. I asked him to please remind him to sign and mail in consent. Son said he will talk with his dad mariam and get that mailed in. Ngozi Jean Pager [phone] CNOV Observed: 04/12/2018 Status: COMPLETED Source: [place] 1:30 PM [facility] Office Visit (TOMN) JAYDE KYLE ([id number]) 1950 M Date Time Provider Department 04/12/18 1:30 PM [facility] During your visit today, we recorded the following information about you: Josué Ivan MD 04/19/2018 12:19 AM Signed CHART COPY DO NOT DISCARD Patient Type: Consult Visit to determine Surgery: Yes PCP: Macho Solorio DO [address] [place] [address] Referring Physician:: Kai Goldsmith MD [address] [facility] [address] HPI: Mr. Jayde Kyle is a 68 year old male seen in consultation at the request of Kai Goldsmith for opinion regarding treatment options for Aortic Stenosis. He is currently symptomatic and complains of shortness of breath. PMH notable for esophageal cancer treated with chemo/radiation. The Echocardiogram reveals aortic stenosis. Based on my evaluation he is a medium risk for open heart surgery. Impression: Aortic Stenosis, s/p radiation Plan:would recommend TAVR I spent 30 minutes in this visit, with more than 50% of the time devoted to patient counseling. These findings will be communicated back to the requesting physician via electronic medical record Josué Ivan MD Referring Provider: KAI GOLDSMITH [[id number]] Allergies As of Date: 04/12/2018 Noted Allergy Reaction SEASONAL ALLERGIES 10/04/2012 8 - GI Upset Comments: headache Date Reviewed: 04/08/2018 Reviewed by: Jaycob (Rn) MYRIAM Tadeo - Fully Assessed Primary Visit Diagnosis:Nonrheumatic aortic valve stenosis [I35.0] Prescriptions as of 04/12/2018 Sig: WARFARIN 5 MG TABLET Take 5 mg by mouth daily as d* WARFARIN 1 MG TABLET Take 1 mg by mouth 3 times a * DILTIAZEM SR 120 MG 24 HR CAP Take 1 capsule by mouth once * FUROSEMIDE 40 MG TABLET Take 40 mg by mouth once dalia* METFORMIN ER 500 MG TABLET,EX* Take 1 tablet by mouth twice * COMPOUNDED PRESCRIPTION Organically Bound Minerals COMPOUNDED PRESCRIPTION Cardiotrophin PMG COMPOUNDED PRESCRIPTION Forever Arctic C COMPOUNDED PRESCRIPTION Cataplex E2 Problem List As Of Date 04/12/2018 Noted Resolved 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] INVALID [...] Class I, BMI 30-34.9 [E66.9] INVALID FOR* Phimosis [N47.1] INVALID FOR* Severe aortic stenosis [I35.0] INVALID FOR* Dyslipidemia [E78.5] INVALID FOR* Uncontrolled type 2 diabetes mellitus without c*INVALID FOR* Leg ulcer, left, limited to breakdown of skin (*INVALID FOR* Encounter Status:Closed by JOSUÉ IVAN on 04/19/18 CNNURSE Observed: 04/12/2018 Status: COMPLETED Source: [place] 11:30 AM [facility] Nurse Visit (CATHMN) JAYDE KYLE ([id number]) 1950 M Date Time Provider Department 04/12/18 11:30 AM RESEARCH NURSE CARD INTERVENTION MNCATHMN During your visit today, we recorded the following information about you: Ngozi Jean RN, RN 05/28/2018 12:37 PM Addendum IRB [id number] WATCH-TAVR Protocol Watchman for Patients with AF Undergoing Transcath AVR PI: Dr. Buzz Blair Study explained/reviewed with patient. Study related follow-up requirements were discussed. Risks, benefits, alternatives, personnel, and costs of the study explained/reviewed. Patient reviewed informed consent. Study related questions were addressed. The patient verbalized understanding of the study and stated that they would like to think about participation. contract administration coordinator explained that in order to move forward with the research study informed consent needs to be signed. A copy of the consent form was given to the patient to review. contract administration coordinator contact information provided. Ngozi Lund RN Pager [phone] 05/28/18 -Spoke with patient's son and son stated patient would like to participate in this study. I asked him to please remind him to sign and mail in consent. Son said he will talk with his dad mariam and get that mailed in. Ngozi Jean Pager [phone] Referring Provider: KAI GOLDSMITH [[id number]] Allergies As of Date: 04/12/2018 Noted Allergy Reaction SEASONAL ALLERGIES 10/04/2012 8 - GI Upset Comments: headache Date Reviewed: 04/08/2018 Reviewed by: Jaycob (Rn) MYRIAM Tadeo - Fully Assessed Reason for Visit: Research [293] Cmt: Watch-TAVR IC Discussion Primary Visit Diagnosis:Gpxnhlaj-Qjaci-YSJI IC Discussion [Z00.6] Prescriptions as of 04/12/2018 Sig: WARFARIN 5 MG TABLET Take 5 mg by mouth daily as d* WARFARIN 1 MG TABLET Take 1 mg by mouth 3 times a * DILTIAZEM SR 120 MG 24 HR CAP Take 1 capsule by mouth once * FUROSEMIDE 40 MG TABLET Take 40 mg by mouth once dalia* METFORMIN ER 500 MG TABLET,EX* Take 1 tablet by mouth twice * COMPOUNDED PRESCRIPTION Organically Bound Minerals COMPOUNDED PRESCRIPTION Cardiotrophin PMG COMPOUNDED PRESCRIPTION Forever Arctic C COMPOUNDED PRESCRIPTION Cataplex E2 Problem List As Of Date 04/12/2018 Noted Resolved 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] INVALID [...] Class I, BMI 30-34.9 [E66.9] INVALID FOR* Phimosis [N47.1] INVALID FOR* Severe aortic stenosis [I35.0] INVALID FOR* Dyslipidemia [E78.5] INVALID FOR* Uncontrolled type 2 diabetes mellitus without c*INVALID FOR* Leg ulcer, left, limited to breakdown of skin (*INVALID FOR* Encounter Status:Closed by NGOZI JEAN on 04/12/18 CNOV Observed: 04/12/2018 Status: COMPLETED Source: [place] 11:00 AM [facility] REPOSITORY Office Visit (CATHMN) JAYDE KYLE ([id number]) 1950 M Date Time Provider Department 04/12/18 11:00 AM [facility] CATHMN During your visit today, we recorded the following information about you: Weight Height 96.1 kg 1.79 m Rosa Espinal RN 1ST GRADE TEACHER.SUPERVISOR PAINT ROLL[employer] 04/12/2018 3:46 PM Signed [facility] Department of Cardiovascular Medicine SECTION OF INTERVENTIONAL CARDIOLOGY OUTPATIENT VISIT DATE April 12, 2018 OUTPATIENT VISIT TYPE ESTABLISHED PRIMARY CARE PHYSICIAN: Macho Solorio DO [address] [place] [address] PRIMARY PARKING REGULATION ENFORCEMENT OFFICER: Dr Goldsmith CHIEF COMPLAINT: Dyspnea with exertion HISTORY OF PRESENT ILLNESS: Mr. Kyle is a 68 year old male who presents today accompanied by his family for education related to aortic valve stenosis and the TAVR procedure. AMBULATORY PATIENT EDUCATION NOTE TOPIC: Aortic valve stenosis, TAVR procedure, [place] embolic cerebral protection device READINESS TO LEARN COGNITIVE ABILITY: Alert and oriented MOTIVATION TO LEARN: Interested FAMILY SUPPORT: High - Very involved in pt care INSTRUCTION PROVIDED TO: Patient and family member PATIENT LEARNS BEST BY: Multiple Methods FACTORS AFFECTING LEARNING: Cultural Factors: Cheondoism PHYSICAL LIMITATIONS AFFECTING LEARNING: None LEARNING RESPONSE DIAGNOSIS: Aortic valve stenosis METHOD OF INSTRUCTION: Verbal instruction Demonstration-Hands on Learning Video PATIENT / FAMILY RESPONSE: Information received as demonstrated by interest and questions FOLLOW-UP PLAN: Follow up phone call. SUPPLEMENTAL MATERIAL: None REFERRAL (RECOMMENDATION): None Frailty Index Criteria Measured: Ht 179 cm (5' 10.47) Wt 96.1 kg (211 lb 13.8 oz) BMI 29.99 kg/m? Frailty scale for 15 foot walk: MEN WOMEN Ht <173 cm > 7 seconds Ht < 159 cm > 7 seconds Ht > 173 cm > 6 seconds Ht > 159 cm > 6 seconds Patient's 15-Foot Walk: Time to complete walk = 6.29 seconds Cantu Activities of Daily Living 1 = Independent (No supervision, direction of personal assistance) 0 = Dependent ( WITH supervision, direction, personal assistance or total care) Bathing Points 1 Dressing Points 1 Toileting Points 1 Transferring Points 1 Continence 1 Feeding Points 1 Total Points = 6/6 Electronically Signed By: Rosa Espinal RN 1ST GRADE TEACHER.SUPERVISOR PA[employer] RO[employer] In Department: CARDIOLOGY Referring Provider: KAI GOLDSMITH [[id number]] Allergies As of Date: 04/12/2018 Noted Allergy Reaction SEASONAL ALLERGIES 10/04/2012 8 - GI Upset Comments: headache Date Reviewed: 04/08/2018 Reviewed by: Jaycob (Rn) MYRIAM Tadeo - Fully Assessed Reason for Visit: Valvular Heart Disease [169] Primary Visit Diagnosis:Nonrheumatic aortic valve stenosis [I35.0] Prescriptions as of 04/12/2018 Sig: WARFARIN 5 MG TABLET Take 5 mg by mouth daily as d* WARFARIN 1 MG TABLET Take 1 mg by mouth 3 times a * DILTIAZEM SR 120 MG 24 HR CAP Take 1 capsule by mouth once * FUROSEMIDE 40 MG TABLET Take 40 mg by mouth once dalia* METFORMIN ER 500 MG TABLET,EX* Take 1 tablet by mouth twice * COMPOUNDED PRESCRIPTION Organically Bound Minerals COMPOUNDED PRESCRIPTION Cardiotrophin PMG COMPOUNDED PRESCRIPTION Forever Arctic C COMPOUNDED PRESCRIPTION Cataplex E2 Problem List As Of Date 04/12/2018 Noted Resolved 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] INVALID [...] Class I, BMI 30-34.9 [E66.9] INVALID FOR* Phimosis [N47.1] INVALID FOR* Severe aortic stenosis [I35.0] INVALID FOR* Dyslipidemia [E78.5] INVALID FOR* Uncontrolled type 2 diabetes mellitus without c*INVALID FOR* Leg ulcer, left, limited to breakdown of skin (*INVALID FOR* Encounter Status:Closed by ROSA MCMAHON RN on 04/12/18 PROGRESS Observed: 04/09/2018 Status: COMPLETED Source: [place] 8:48 AM [facility] REPOSITORY HNO ID: [id number] Author: Mera Taylor Cma Service: (none) Author Type: (none) Type: Progress Notes Filed: 04/09/2018 8:49 AM Note Text: Completed labs yesterday. PROGRESS Observed: 04/08/2018 Status: COMPLETED Source: [place] 1:49 PM [facility] REPOSITORY HNO ID: [id number] Author: Jaycob ReyesRn) Alicia RN Service: (none) Author Type: Registered Nurse Type: Progress Notes Filed: 04/08/2018 1:50 PM Note Text: 04/08/2018 12:37 PM IV Access: IV Previously accessed IV Site: right Antecubital IV GAUGE 20 gauge IV Removal Date 04/08/2018 Time 12:37 Reactions: WNL PROGRESS Observed: 04/08/2018 Status: COMPLETED Source: [place] 1:48 PM [facility] REPOSITORY HNO ID: [id number] Author: Jaycob ReyesRn) MYRIAM Tadeo Service: (none) Author Type: Registered Nurse Type: Progress Notes Filed: 04/08/2018 1:50 PM Note Text: 04/08/2018 12:36PM Order reviewed by nurse:yes Medications: Definity - dosage 3 ml IV Reaction: No HISTORY PHYSICAL Observed: 04/08/2018 Status: COMPLETED Source: [place] 12:36 PM [facility] REPOSITORY HNO ID: [id number] Author: Kai Goldsmith Service: (none) Author Type: Physician Type: HANDP Filed: 04/11/2018 10:33 AM Note Text: [facility] [facility] Department of Cardiovascular Medicine SECTION OF CLINICAL CARDIOLOGY OUTPATIENT VISIT DATE April 08, 2018 OUTPATIENT VISIT TYPE NEW PRIMARY CARE PHYSICIAN: Macho Solorio, DO [address] [place] [address] Zach Howard ([place], [place]) status post cardiac catheterization CHIEF COMPLAINT: TAVR evaluation HISTORY OF PRESENT ILLNESS: Mr. Kyle is a 68 year old Cheondoism male with PMH significant for tobacco use (100pack year), HTN (dilt 120), HLD, CHF (lasix 40mg Qday), DM (controlled with weight loss, now on metformin), AF (on AC and BB) who presents today for evaluation for TAVR. Per chart review, he was initially diagnosed with CHF at the end of 2013 when he began experiencing typical CHF symptoms (SOB, BRUCE etc.), had elevated NT-proBNP. PMH negative for myocardial infarction, rheumatic fever, congenital heart disease, CVA, TIA, or peripheral arterial disease. He was found in 2009 to have new-onset uncontrolled atrial fibrillation. He has been on anticoagulation and beta blockade since that time.He has no family history of premature heart disease. ?? He denies chest pain, shortness of breath, orthopnea, cough, edema, palpitations, PND, lightheadedness or syncope. Reports increased difficulty climbing hill and more fatigue than prior to CHF dx. ? 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 He underwent chemotherapy and radiation (28 days) and has been in complete remission noted as recently as November 2017 via EGD. 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 Zach Howard - COLONOSCOPY 12/30/2016 - EGD BIOPSY SING OR MULT 01/22/2018 - EGD W/ BIOPSY SNGL/MLTPL 12/20/2016 - EGD W/O OR W/BRUSH/WASH 12/2012 EGD - EGD W/O OR W/BRUSH/WASH 04/14/2013 EGD - EGD W/O OR W/BRUSH/WASH 07/19/13 EGD - EGD W/O OR W/BRUSH/WASH 01/22/2018 antral biopsy, GE junction biopsy - HERNIA REPAIR HX umbilical SOCIAL HISTORY Social History Substance Use Topics - Smoking status: Current Every Day Smoker Packs/day: 2.00 Years: 50.00 Types: Cigarettes, Pipe, Cigars - Smokeless tobacco: Never Used Comment: attempting to quit - Alcohol use No FAMILY HISTORY Problem Relation Age of Onset - Stroke Mother - Stroke Father - other (tia) Father - Heart Brother - Diabetes Sister - Cancer Sister lymphoma x 2 - other (pneumonia) Maternal Grandmother - Stroke Maternal Grandfather - Cancer Paternal Grandfather - Stroke Paternal Grandmother ALLERGIES: ALLERGIES Allergen Reactions - Seasonal Allergies GI Upset headache MEDICATIONS: warfarin (COUMADIN) 5 mg tablet Take 5 mg by mouth daily as directed. warfarin (COUMADIN) 1 mg tablet Take 1 mg by mouth 3 times a WEEK. diltiazem CD (CARDIZEM CD) 120 mg 24 hr capsule Take 1 capsule by mouth once daily. furosemide (LASIX) 40 mg tablet Take 40 mg by mouth once daily. metFORMIN ER (GLUCOPHAGE XR) 500 mg 24 hr tablet Take 1 tablet by mouth twice daily before meals. GENERIC OKAY COMPOUNDED PRESCRIPTION Organically Bound Minerals COMPOUNDED PRESCRIPTION Cardiotrophin PMG COMPOUNDED PRESCRIPTION Forever Arctic C COMPOUNDED PRESCRIPTION Cataplex E2 REVIEW OF SYSTEMS: GENERAL: Negative for: Weight loss or gain, Fever or Chills HEENT: Negative for: Changes in Vision or Hearing, Nose bleeds NECK: Negative for: Swelling RESPIRATORY: Negative for: Cough, Blood in Sputum, Shortness of breath GASTROINTESTINAL: Negative for: Nausea, Vomiting, Diarrhea, Heartburn MUSCULOSKELETAL: Negative for: New Muscle or joint pain NEUROLOGIC/PSYCHIATRIC: Negative for: New Weakness, Numbness, Paralysis SKIN: Negative for: Rashes, Itching HEMATOLOGICAL/LYMPHATIC: Negative for: Easy bleeding, endorsess some bruising ENDOCRINE: Negative for: Frequent urination, Frequent thirst PHYSICAL EXAMINATION: BP 133/83 (BP Site: Right Arm) Pulse 100 Resp 16 Ht 179 cm (5' 10.47) Wt 96.1 kg (211 lb 12.8 oz) SpO2 99% BMI 29.98 kg/m? General: Well appearing, in no acute distress. Skin: No clubbing, no cyanosis. Eyes: Extra ocular movements intact Oropharynx: Teeth in good repair. Neck: No jugular venous distention, no carotid bruits, carotids have a normal upstroke, no palpable thyromegaly. Lungs: Clear to auscultation bilaterally, no wheezing or rhonchi. Heart: Irregular rhythm, PMI not displaced, S1, S2 normal, no S3, no S4, no heaves, no rub, 3/6 BIA best heard at the LUSB Abdomen: Soft, nontender, bowel sounds normal, no palpable organomegaly, no bruits. Extremities: 2+ pitting edema of the shins. Grade 2/4 femoral pulses bilaterally, BL LE with purple stasis dermatitis to the mid-michaels. Neuro: Oriented to person, place and time, alert, cooperative, gait coordinated. CARDIOVASCULAR MEDICINE TESTING: Electrocardiogram: 04/08/18. Prelim: AF, CANNOT EXCLUDE INFERIOR MYOCARDIAL INFARCTION Heart Cath from OSH 12/29/17: Mild LV systolic dysfunction with moderate to severe . Coronary angiography: Echo OSH: I have personally reviewed the Electrocardiogram. IMPRESSION: Mr. Kyle is a 68 year old male with HFpEF, AF, and PMH significant for extensive radiation to the chest (esophageal CA now in remission) presenting for evaluation for TAVR. PLAN AND RECOMMENDATIONS: -Discussed open heart valve replacement vs TAVR -Will speak to TAVR committee -Follow-up CT chest for abnormalities status post chest radiation -Follow-up PFT, Echo, labs and continued TAVR work up John Wilson MD, MA, [facility] Internal Medicine PGY-1 Pager: [phone] April 08, 2018 12:33 PM I personally interviewed, confirmed and edited the above information if obtained by others. [facility] STAFF PHYSICIAN NOTE OF PERSONAL INVOLVEMENT IN CARE I have reviewed the consult note obtained and documented by the resident and I personally participated in the chandler components. I have discussed the case and management of the patient's care. The following comments revise or confirm relevant chandler components of the note. IMPRESSION: Patient with history of esophageal CA S/p chemotherapy and radiation. He has significant low flow low gradient aortic stenosis, chronic atrial fibrillation . Await the surgical opinion about his risk of surgery PLAN: Continue TAVR evaluation Kai Goldsmith MD ALBUMIN/CREAT RATIO Collected: 04/08/2018 Status: F Source: [place] 11:58 AM [facility] REPOSITORY TYPE CODE TESTS RESULT OUT OF REFERENCE UNITS RANGE LAB UCRR 20-300 mg/dL Creatinine,Ur 99.9 ine,Ran LAB UALBR 0.0-23.0 mg/L High Albumin Urine 222.9 Random LAB UALBCR 0-30 mg/g High Albumin/Creat 223 Ratio Result Comment: 30 to 300 mg/g indicates an increased risk for diabetic nephropathy. Greater than 300 mg/g is consistent with clinical nephropathy. (Am J Kidney Disease 1994, 25:107) Performed By: #### UACR #### [facility] [address] [place], [place] [address] CTA C/A/P (GATED) W Observed: 04/08/2018 Status: F Source: [place] IVCON 11:19 AM [facility] REPOSITORY * * *Final Report* * * DATE OF EXAM: Apr 08 2018 11:19AM [facility]QC 0133 - CTA C/A/P (GATED) W IVCON / PROCEDURE REASON: Nonrheumatic aortic (valve) stenosis * * * * Physician Interpretation * * * * CTA chest, CTA abdomen and pelvis dated 04/08/2018 11:19 AM. Comparison: CTA chest, abdomen and pelvis dated 04/24/2015 Indication: 68 years old Male with high-risk aortic valve disease evaluated for percutaneous/surgical treatment options. There is need to define aortic and aortic valve anatomy. Technique: Multi-detector CT technology was employed (Siemens Somatom Force dual source scanner). Flash mode imaging was performed following the IV administration of contrast material. Subsequently, a retrospectively gated acquisition was performed of the chest limited to the aortic valve for dynamic 4D evaluation. A low-osmolar contrast agent was used (60 cc of Omnipaque 350). CT Dose-Length Product (DLP): [address] Dose Reduction Employed: Yes For optimization of anatomic evaluation, multiplanar reconstruction, maximum intensity projections, and advanced 3-D off-line postprocessing were performed on a dedicated stand-alone workstation under the direct supervision of the interpreting physician. RESULT: Potential study limitations: None. CHEST: The chest wall, mediastinum, and pericardium are unremarkable. Central pulmonary arteries are at the upper limits of normal size. Few subcentimeter lymph nodes noted in the mediastinum and ines, not enlarged by size criteria. Few calcified right lymph nodes are also noted. Lung windows reveal no acute abnormalities. Elevated left hemidiaphragm, which could suggest for left hemidiaphragm dysfunction. Few small pulmonary nodules are unchanged since prior examination. For example, a 3 to 4 mm left upper lobe nodule at image 126 (series 7), and a peribronchial nodular opacity adjacent to the left major fissure at image 120. Linear atelectasis is noted in the anterior left upper lobe. There is atelectasis in the lingula and the left lower lobe adjacent to the elevated left hemidiaphragm. Also noted is patchy subsegmental atelectasis bilaterally. A calcified granuloma is noted at the right lung base. Mild emphysema is noted in the upper lungs. Small amount of retained secretions are noted in the trachea. No pleural effusion. The cardiac chambers demonstrate normal atrioventricular and ventriculoarterial concordance, and systemic and pulmonary venous return. The cardiac chamber sizes are normal, except for severe biatrial enlargement. Mild mitral annular calcification is noted. The coronary arteries are tortuous in the proximal segments, however with normal origins. There are mild coronary calcifications identified, though this study was not optimized for coronary artery evaluation. VASCULAR WITH ADVANCED 3-D OFF-LINE POSTPROCESSING: Dedicated 4D dynamic imaging of the aortic root demonstrates a trileaflet aortic valve with severe leaflet calcifications. Cusp size and root anatomy are symmetric. There is severely limited excursion of the valve cusps. Aortic valve orifice area = 0.8 cm2. -The aortic annulus measures 2.8 x 2.3 cm; cross-sectional area = 5.15 cm2; circumference = 8.2 cm. -Annulus to LM distance 14 mm; annulus to RCA distance 11 mm. -Smooth calcium chunk noted extending into the LVOT, underneath the commissure between the left and non-coronary sinus. The sinotubular junction measures 3.1 x 3.1 cm, and free of calcifications. The thoracic aorta is tortuous distally. Mild ectasia of mid ascending aorta noted, measuring 4.0 cm (area 11.8 cm2). The reminder of the thoracic aorta is normal in caliber. Mild mixed atherosclerotic wall changes noted in the thoracic aorta. There is no acute aortic pathology, such as dissection, intramural hematoma, or contained rupture. The arch vessel branching pattern is normal, and the arch branch vessels are all widely patent in their proximal portions. The abdominal aorta is mildly tortuous, however, normal in caliber with minimal calcific wall changes. There is no acute aortic pathology. [place] Layer dimensions of the thoracoabdominal aorta are as follows: 3.2 cm at the sinuses of Valsalva (the sinotubular junction is preserved) 4.0 cm, area 11.8 cm2 in the mid ascending aorta 3.4 cm at the distal ascending aorta 2.8 cm at the mid transverse arch 2.9 cm at the proximal descending thoracic aorta 2.5 cm at the diaphragmatic hiatus. 2.6 cm at the supramesenteric segment 2.5 cm at the mesenteric segment 2.3 cm at the renal segment 2.2 cm at the mid infrarenal segment 2.2 cm at the aortic bifurcation. The celiac axis, SMA, and SOUTH are patent. There is a single left renal artery coming from the abdominal aorta, appears patent. Right renal arteries are discussed below. The pelvic arteries are tortuous, with mild mixed atherosclerotic wall changes. Mild ectasia of the right common iliac artery, measuring 1.5 cm. The common femoral arteries are normal in course, caliber, and with mild calcific wall changes. The minimal luminal caliber throughout = 7 mm in both common femoral arteries. ABDOMEN: Mild hiatus hernia noted. The liver and pancreas appear normal. Slight surface nodularity of the liver parenchyma is noted. Nonobstructive large calcified gallstone noted. Punctate calcified granulomas noted in the spleen. The left adrenal gland appears mildly thickened. The right adrenal gland is not well-visualized. 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 There may be an additional accessory renal artery arising from the proximal left common iliac artery. The left kidney is malrotated although normal in size. There is no hydronephrosis. PELVIS: There is no significant retroperitoneal adenopathy. No free fluid or free air within the abdomen or pelvis. The bowel appears unremarkable on this non-GI contrast examination. The urinary bladder appears normal, the wall appears slightly thickened. There are scattered phleboliths within the deep pelvis. BONES: Degenerative bony changes noted in the thoracic and lumbar spine. = IMPRESSION: 1. Trileaflet aortic valve with severe leaflet calcifications. Details of anatomy and calcification are described above. 2. The thoracic aorta is tortuous distally. Mild ectasia of mid ascending aorta noted, measuring 4.0 cm (area 11.8 cm2). The reminder of the thoracic and abdominal aorta is normal in caliber. No acute aortic pathology identified. The pelvic arteries, including the common femoral arteries are mildly tortuous, with normal caliber and mild calcific wall changes. The minimal luminal caliber throughout = 7 mm in both common femoral arteries. 3. Few small (<5 mm) lung nodules noted, most of which are unchanged. 4. Ectopic right pelvic kidney. Manufacturing Technologist: INEZ Transcribe Date/Time: Apr 08 2018 1:34P Dictated by : JOSHUA BUCK MD This examination was interpreted and the report reviewed and electronically signed by: CÉSAR DAY MD on Apr 08 2018 4:06PM EST [id number] PROGRESS Observed: 04/08/2018 Status: COMPLETED Source: [place] 11:13 AM [facility] REPOSITORY HNO ID: [id number] Author: ADRIANA Cheng (Ct) Service: Radiology Author Type: Clinical Career Resource Technician Type: Progress Notes Filed: 04/08/2018 11:15 AM Note Text: Radiology Service Progress Note PATIENT NAME: Jayde Kyle DATE OF SERVICE: April 08, 2018 TIME: 11:14 AM PATIENT IDENTITY VERIFICATION COMPLETED USING TWO (2) METHODS: Patient confirmed name verbally and ID band matches.. PATIENT GENDER DATA: Male PATIENT RELEVANT IMPLANT DATA REVIEWED: Yes RADIOLOGY DEPARTMENT: CT; Exam(s) Completed: CTA Cardiac PERIPHERAL IV DATA: Site assessment: Clean,Dry and Intact, Site disposition Left in for next appointment SIGNED BY: ADRIANA Cheng April 08, 2018 11:14 AM CNOV Observed: 04/08/2018 Status: COMPLETED Source: [place] 11:00 AM [facility] REPOSITORY Office Visit (PERVMN) JAYDE KYLE ([id number]) 1950 M Date Time Provider Department 04/08/18 11:00 AM [facility] [facility] J3-5 PERVMN During your visit today, we recorded the following information about you: Jaycob Tadeo RN, RN 04/08/2018 1:50 PM Signed 04/08/2018 12:36PM Order reviewed by nurse:yes Medications: Definity - dosage 3 ml IV Reaction: No Jaycob Tadeo RN, RN 04/08/2018 1:50 PM Signed 04/08/2018 12:37 PM IV Access: IV Previously accessed IV Site: right Antecubital IV GAUGE 20 gauge IV Removal Date 04/08/2018 Time 12:37 Reactions: WNL Referring Provider: KAI GOLDSMITH [[id number]] Allergies As of Date: 04/08/2018 Noted Allergy Reaction SEASONAL ALLERGIES 10/04/2012 8 - GI Upset Comments: headache Date Reviewed: 04/08/2018 Reviewed by: Jaycob (Rn) Alicia RN - Fully Assessed Reason for Visit: IV Medication Administration [149] Cmt: Definity IV Removal [4187] Cmt: DC IV after ECHO Reason For Visit History Recorded Visit Diagnosis:Nonrheumatic aortic valve stenosis [I35.0] Order(s):ECHO [[id number]] Order #: [id number]: 1 Prescriptions as of 04/08/2018 Sig: WARFARIN 5 MG TABLET Take 5 mg by mouth daily as d* WARFARIN 1 MG TABLET Take 1 mg by mouth 3 times a * DILTIAZEM SR 120 MG 24 HR CAP Take 1 capsule by mouth once * FUROSEMIDE 40 MG TABLET Take 40 mg by mouth once dalia* METFORMIN ER 500 MG TABLET,EX* Take 1 tablet by mouth twice * X WARFARIN 5 MG TABLET TAKE 1 TABLET DAILY ON * X WARFARIN 1 MG TABLET TAKE 1 TABLET ON THU, THU, FR* X DOXYCYCLINE MONOHYDRATE 100 M* Take 1 tablet by mouth twice * X WARFARIN 5 MG TABLET TAKE 1 TABLET DAILY ON * COMPOUNDED PRESCRIPTION Organically Bound Minerals COMPOUNDED PRESCRIPTION Cardiotrophin PMG COMPOUNDED PRESCRIPTION [facility] COMPOUNDED PRESCRIPTION Cataplex E2 X COMPOUNDED PRESCRIPTION Vitamin O dietary supplement X COMPOUNDED PRESCRIPTION Cardio-Plus X COMPOUNDED PRESCRIPTION Boswellia complex X COMPOUNDED PRESCRIPTION Glucosamine Synergy X FUROSEMIDE 20 MG TABLET Take 1 tablet by mouth once d* X WARFARIN 1 MG TABLET Take 6mg on Thursday, Thursday* X WARFARIN 5 MG TABLET Take 6mg Thu,Thu,Thu,Sat,Sun * X OTC PRODUCT [facility]: Take 4 capsules b* X ALOE VERA ORAL Take 3 Tablespoonsful by mout* Problem List As Of Date 04/08/2018 Noted Resolved 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] INVALID [...] Class I, BMI 30-34.9 [E66.9] INVALID FOR* Phimosis [N47.1] INVALID FOR* Severe aortic stenosis [I35.0] INVALID FOR* Dyslipidemia [E78.5] INVALID FOR* Uncontrolled type 2 diabetes mellitus without c*INVALID FOR* Leg ulcer, left, limited to breakdown of skin (*INVALID FOR* Encounter Status:Closed by JAYCOB TADEO on 04/08/18 PROGRESS Observed: 04/08/2018 Status: COMPLETED Source: [place] 10:43 AM [facility] REPOSITORY [facility] ID: [id number] Author: Angelic Abdul (Rn) MYRIAM Munoz Service: (none) Author Type: Registered Nurse Type: Progress Notes Filed: 04/08/2018 10:49 AM Note Text: Radiology Service Progress Note PATIENT NAME: Jayde Kyle DATE OF SERVICE: April 08, 2018 TIME: 10:43 AM PATIENT WEIGHT: 211 LBS PATIENT IDENTITY VERIFICATION COMPLETED USING TWO (2) METHODS: Patient confirmed name verbally and ID band matches.. PATIENT GENDER DATA: Male CONTRAST INDUCED NEPHROPATHY RISK FACTORS: Patient age > 60 years, Diabetic: No and Yes. Current medication(s): Metformin. Patient currently has insulin pump?: No. and Congestive Heart Failure (CHF) CREATININE: Creatinine Date Value Ref Range Status 08/05/2017 0.86 0.73 - 1.22 mg/dL Final 10/24/2016 0.88 0.73 - 1.22 mg/dL Final 12/28/2015 0.89 0.70 - 1.40 mg/dL Final eGFR-All Other Races Date Value Ref Range Status 08/05/2017 >60 . Final Comment: eGFR (Estimated GFR) Units of measure: mL/min/1.73 meters squared eGFR is derived from the reexpressed MDRD Study equation using the following parameters: serum creatinine, age, gender and race. The creatinine assay has been calibrated to be traceable to IDMS. An eGFR <60 mL/min/1.73m2 for >3 months is consistent with chronic kidney disease. Refer to KDOQI guidelines for clinical interpretation. In patients with unstable renal function, e.g. those with acute kidney injury, the eGFR may not accurately reflect actual GFR. eGFR- Date Value Ref Range Status 08/05/2017 >60 Final P.O.C.T. RESULTS: POC done: Yes, See Lab Tab April 08, 2018 TREATMENT: No Hydration needed. ALLERGIES: Reviewed and unchanged CONTRAST ALLERGY: NO. IV SITE: Ambulatory: A peripheral IV was started in the Right antecubital site with a Angio cath: 20 gauge. and A Saline lock was inserted per protocol IV SITE APPEARANCE: Clean,Dry and Intact SIGNED BY: Angelic Munoz RN April 08, 2018 10:43 AM CNOV Observed: 04/08/2018 Status: COMPLETED Source: [place] 9:30 AM [facility] REPOSITORY Office Visit (CARCMN) JAYDE KYLE ([id number]) 1950 M Date Time Provider Department 04/08/18 9:30 AM KAI GOLDSMITH During your visit today, we recorded the following information about you: Pulse Respiration Blood pressure Weight 100/minute 16/minute 133/83 96.1 kg Height 1.79 m John Wilson MD, MD 04/08/2018 10:22 AM Signed 1. Seen by Dr. Goldsmith today 2. Discussed the possibility of open heart surgery versus TAVR (less invasive) 3. However, the decision of which procedure if up to the cardiac surgery board 4. Also, we discussed the possibility of the cardioversion or getting your heart back into rhythm after there surgery but not before 5. We will follow-up on the CT scan, pulmonary function, echocardiogram and other results results 6. We will follow-up on laboratory values Call [phone] for scheduling Kai Goldsmith MD 04/11/2018 10:33 AM Signed [facility] [place] [facility] Department of Cardiovascular Medicine SECTION OF CLINICAL CARDIOLOGY OUTPATIENT VISIT DATE April 08, 2018 OUTPATIENT VISIT TYPE NEW PRIMARY CARE PHYSICIAN: Macho Solorio DO [address] [place] [address] Zach Howard ([place], [place]) status post cardiac catheterization CHIEF COMPLAINT: TAVR evaluation HISTORY OF PRESENT ILLNESS: Mr. Kyle is a 68 year old [place] male with PMH significant for tobacco use (100pack year), HTN (dilt 120), HLD, CHF (lasix 40mg Qday), DM (controlled with weight loss, now on metformin), AF (on AC and BB) who presents today for evaluation for TAVR. Per chart review, he was initially diagnosed with CHF at the end of 2013 when he began experiencing typical CHF symptoms (SOB, BRUCE etc.), had elevated NT-proBNP. PMH negative for myocardial infarction, rheumatic fever, congenital heart disease, CVA, TIA, or peripheral arterial disease. He was found in 2009 to have new-onset uncontrolled atrial fibrillation. He has been on anticoagulation and beta blockade since that time.He has no family history of premature heart disease. ?? He denies chest pain, shortness of breath, orthopnea, cough, edema, palpitations, PND, lightheadedness or syncope. Reports increased difficulty climbing hill and more fatigue than prior to CHF dx. ? 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 He underwent chemotherapy and radiation (28 days) and has been in complete remission noted as recently as November 2017 via EGD. 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 Zach Howard - COLONOSCOPY 12/30/2016 - EGD BIOPSY SING OR MULT 01/22/2018 - EGD W/ BIOPSY SNGL/MLTPL 12/20/2016 - EGD W/O OR W/BRUSH/WASH 12/2012 EGD - EGD W/O OR W/BRUSH/WASH 04/14/2013 EGD - EGD W/O OR W/BRUSH/WASH 07/19/13 EGD - EGD W/O OR W/BRUSH/WASH 01/22/2018 antral biopsy, GE junction biopsy - HERNIA REPAIR HX umbilical SOCIAL HISTORY Social History Substance Use Topics - Smoking status: Current Every Day Smoker Packs/day: 2.00 Years: 50.00 Types: Cigarettes, Pipe, Cigars - Smokeless tobacco: Never Used Comment: attempting to quit - Alcohol use No FAMILY HISTORY Problem Relation Age of Onset - Stroke Mother - Stroke Father - other (tia) Father - Heart Brother - Diabetes Sister - Cancer Sister lymphoma x 2 - other (pneumonia) Maternal Grandmother - Stroke Maternal Grandfather - Cancer Paternal Grandfather - Stroke Paternal Grandmother ALLERGIES: ALLERGIES Allergen Reactions - Seasonal Allergies GI Upset headache MEDICATIONS: warfarin (COUMADIN) 5 mg tablet Take 5 mg by mouth daily as directed. warfarin (COUMADIN) 1 mg tablet Take 1 mg by mouth 3 times a WEEK. diltiazem CD (CARDIZEM CD) 120 mg 24 hr capsule Take 1 capsule by mouth once daily. furosemide (LASIX) 40 mg tablet Take 40 mg by mouth once daily. metFORMIN ER (GLUCOPHAGE XR) 500 mg 24 hr tablet Take 1 tablet by mouth twice daily before meals. GENERIC OKAY COMPOUNDED PRESCRIPTION Organically Bound Minerals COMPOUNDED PRESCRIPTION Cardiotrophin PMG COMPOUNDED PRESCRIPTION Forever Arctic C COMPOUNDED PRESCRIPTION Cataplex E2 REVIEW OF SYSTEMS: GENERAL: Negative for: Weight loss or gain, Fever or Chills HEENT: Negative for: Changes in Vision or Hearing, Nose bleeds NECK: Negative for: Swelling RESPIRATORY: Negative for: Cough, Blood in Sputum, Shortness of breath GASTROINTESTINAL: Negative for: Nausea, Vomiting, Diarrhea, Heartburn MUSCULOSKELETAL: Negative for: New Muscle or joint pain NEUROLOGIC/PSYCHIATRIC: Negative for: New Weakness, Numbness, Paralysis SKIN: Negative for: Rashes, Itching HEMATOLOGICAL/LYMPHATIC: Negative for: Easy bleeding, endorsess some bruising ENDOCRINE: Negative for: Frequent urination, Frequent thirst PHYSICAL EXAMINATION: BP 133/83 (BP Site: Right Arm) Pulse 100 Resp 16 Ht 179 cm (5' 10.47) Wt 96.1 kg (211 lb 12.8 oz) SpO2 99% BMI 29.98 kg/m? General: Well appearing, in no acute distress. Skin: No clubbing, no cyanosis. Eyes: Extra ocular movements intact Oropharynx: Teeth in good repair. Neck: No jugular venous distention, no carotid bruits, carotids have a normal upstroke, no palpable thyromegaly. Lungs: Clear to auscultation bilaterally, no wheezing or rhonchi. Heart: Irregular rhythm, PMI not displaced, S1, S2 normal, no S3, no S4, no heaves, no rub, 3/6 BIA best heard at the LUSB Abdomen: Soft, nontender, bowel sounds normal, no palpable organomegaly, no bruits. Extremities: 2+ pitting edema of the shins. Grade 2/4 femoral pulses bilaterally, BL LE with purple stasis dermatitis to the mid-michaels. Neuro: Oriented to person, place and time, alert, cooperative, gait coordinated. CARDIOVASCULAR MEDICINE TESTING: Electrocardiogram: 04/08/18. Prelim: AF, CANNOT EXCLUDE INFERIOR MYOCARDIAL INFARCTION Heart Cath from OSH 12/29/17: Mild LV systolic dysfunction with moderate to severe . Coronary angiography: Echo OSH: I have personally reviewed the Electrocardiogram. IMPRESSION: Mr. Kyle is a 68 year old male with HFpEF, AF, and PMH significant for extensive radiation to the chest (esophageal CA now in remission) presenting for evaluation for TAVR. PLAN AND RECOMMENDATIONS: -Discussed open heart valve replacement vs TAVR -Will speak to TAVR committee -Follow-up CT chest for abnormalities status post chest radiation -Follow-up PFT, Echo, labs and continued TAVR work up John Wilson MD, MS, [facility] Internal Medicine PGY-1 Pager: [phone] April 08, 2018 12:33 PM I personally interviewed, confirmed and edited the above information if obtained by others. [facility] STAFF PHYSICIAN NOTE OF PERSONAL INVOLVEMENT IN CARE I have reviewed the consult note obtained and documented by the resident and I personally participated in the chandler components. I have discussed the case and management of the patient's care. The following comments revise or confirm relevant chandler components of the note. IMPRESSION: Patient with history of esophageal CA S/p chemotherapy and radiation. He has significant low flow low gradient aortic stenosis, chronic atrial fibrillation . Await the surgical opinion about his risk of surgery PLAN: Continue TAVR evaluation Kai Goldsmith MD Referring Provider: ZAHC HOWARD [[id number]] Allergies As of Date: 04/08/2018 Noted Allergy Reaction SEASONAL ALLERGIES 10/04/2012 8 - GI Upset Comments: headache Date Reviewed: 04/08/2018 Reviewed by: Jaycob (Rn) MYRIAM Tadeo - Fully Assessed Primary Visit Diagnosis:Chronic systolic congestive heart failure (HCC) [I50.22] Other Visit Diagnoses:Nonrheumatic aortic valve stenosis [I35.0] Chronic atrial fibrillation (HCC) [I48.2] Uncontrolled type 2 diabetes mellitus without complication, without long-term current use of insulin (HCC) [E11.65] Obesity, Class I, BMI 30-34.9 [E66.9] Order(s):CREATININE, BLOOD (POC) [3077817] Order #: [id number] 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 Seen by Dr. Goldsmith today 2. Discussed the possibility of open heart surgery versus TAVR (less invasive) 3. However, the decision of which procedure if up to the cardiac surgery board 4. Also, we discussed the possibility of the cardioversion or getting your heart back into rhythm after there surgery but not before 5. We will follow-up on the CT scan, pulmonary function, echocardiogram and other results results 6. We will follow-up on laboratory values Call [phone] for scheduling Medications Discontinued During This Encounter ALOE VERA ORAL 04/08/2018 Class: Historical Med Route: ORAL Sig: Take 3 Tablespoonsful by mouth once daily. Disc: Discontinued by Patient COMPOUNDED PRESCRIPTION 04/08/2018 Class: Historical Med Sig: Vitamin O dietary supplement Disc: Discontinued by Patient COMPOUNDED PRESCRIPTION 04/08/2018 Class: Historical Med Sig: Cardio-Plus Disc: Discontinued by Patient COMPOUNDED PRESCRIPTION 04/08/2018 Class: Historical Med Sig: Boswellia complex Disc: Discontinued by Patient COMPOUNDED PRESCRIPTION 04/08/2018 Class: Historical Med Sig: Glucosamine Synergy Disc: Discontinued by Patient doxycycline monohydrate 100 mg tablet 20 t* 0 05/05/2017 04/08/2018 Route: ORAL Sig: Take 1 tablet by mouth twice daily. Disc: Course of therapy completed furosemide (LASIX) 20 mg tablet 30 t* 3 02/02/2017 04/08/2018 Route: ORAL Sig: Take 1 tablet by mouth once daily. As needed for leg swelling Disc: Duplicate Entry OTC PRODUCT 04/08/2018 Class: Historical Med Sig: [place]: Take 4 capsules by mouth twice daily. Disc: Discontinued by Patient warfarin (COUMADIN) 5 mg tablet 10/15/2016 04/08/2018 Class: Med Update Sig: Take 6mg Thu,Thu,Thu,Sat,Sun and 5mg all other days or as directed. Disc: Duplicate Entry Cosign accepted by MACHO SOLORIO DO[[id number]] on 10/15/2016 10:43 AM warfarin (COUMADIN) 1 mg tablet 30 t* 11 08/21/2017 04/08/2018 Sig: TAKE 1 TABLET ON MON, WED, THU WITH 5MG TABLET (6MG TOTAL) Disc: Duplicate Entry warfarin (COUMADIN) 1 mg tablet 30 t* 5 01/23/2017 04/08/2018 Sig: Take 6mg on Thursday, Thursday, and Fridays and 5mg the rest of the week Disc: Duplicate Entry warfarin (COUMADIN) 5 mg tablet 30 t* 2 12/01/2017 04/08/2018 Sig: TAKE 1 TABLET DAILY ON TUE, WED, XAVI, SAT, SUN Disc: Duplicate Entry warfarin (COUMADIN) 5 mg tablet 90 t* 1 04/28/2017 04/08/2018 Sig: TAKE 1 TABLET DAILY ON TUE, WED, XAVI, SAT, SUN Disc: Duplicate Entry Letter Text Kai Goldsmith M.D., F.A.C.C. Section Head, Clinical Cardiology [place] [facility] Department of Cardiovascular Medicine [address] [place] [address] [place] [address] Office: [phone] Appts.: [phone] April 22, 2018 Macho Solorio DO [facility] [place] [address] RE: Jayde Kyle [facility] NO: [id number] DATE OF VISIT: 04/08/[address] Solorio: I had the pleasure of seeing your patient, Jayde Kyle, for consultation in the [facility] [place] at the [facility]. Mr. Kyle is a 68-year-old male with a history of esophageal cancer, status-post chemotherapy and radiation. He has significant low flow low gradient aortic stenosis and chronic atrial fibrillation. I will await the surgical opinion about his risk of surgery and continue TAVR evaluation. I appreciate the opportunity to participate in Mr. Kyle's evaluation and treatment. If you have any questions or concerns, please feel free to contact me. Sincerely, Kai Goldsmith M.D. BB:samantha CC: Jayde Kyle [address] [facility] [place] [address] Encounter Status:Closed by KAI GOLDSMITH MD on 04/11/18 CBC AND DIFFERENTIAL Collected: 04/08/2018 Status: F Source: [place] 8:54 AM [facility] REPOSITORY TYPE CODE TESTS RESULT OUT OF REFERENCE UNITS RANGE LAB WBC 3.70-11.00 k/uL WBC 6.67 LAB RBC 4.20-6.00 m/uL RBC 4.36 LAB HGB 13.0-17.0 g/dL Hemoglobin 14.2 LAB HCT 39.0-51.0 % Hematocrit 42.7 LAB MCV 80.0-100.0 fL MCV 97.9 LAB MCH 26.0-34.0 pG MCH 32.6 LAB MCHC 30.5-36.0 g/dL MCHC 33.3 LAB RDWCV 11.5-15.0 % RDW-CV High 15.3 LAB PLTCT 150-400 k/uL Platelet Count 180 LAB MPV 9.0-12.7 fL MPV 12.4 LAB ANEUT % Neut% 59.2 LAB AANEUT 1.45-7.50 k/uL Abs Neut 3.92 LAB ALYMP % Lymph% 25.3 LAB AALYMP 1.00-4.00 k/uL Abs Lymph 1.69 LAB AMONO % Howard% 11.5 LAB AAMONO <0.87 k/uL Abs Howard 0.77 LAB AEOS % Eosin% 3.1 LAB AAEOS <0.46 k/uL Abs Eosin 0.21 LAB ABASO % Baso% 0.9 LAB AABASO <0.11 k/uL Abs Baso 0.06 LAB AUNRBC 0 /100 WBC NRBCs 0.0 LAB ABNRBC <0.01 k/uL Absolute nRBC <0.01 LAB DTYP DTYPE Auto Diff Performed By: #### CBCDIF, CMP, NTBNP #### [facility] [address] [place], [place] [address] COMP METABOLIC PANEL Collected: 04/08/2018 Status: F Source: [place] 8:54 AM [facility] REPOSITORY TYPE CODE TESTS RESULT OUT OF REFERENCE UNITS RANGE LAB TP 6.3-8.0 g/dL Protein, High Total 8.2 LAB ALB 3.9-4.9 g/dL Albumin 4.1 LAB CA 8.5-10.2 mg/dL Calcium, Total 9.5 LAB TBIL 0.2-1.3 mg/dL Bilirubin, High Total 1.5 LAB ALKP 36-108 U/L Alkaline Phosphatase 71 LAB AST 14-40 U/L AST 21 LAB GLU 74-99 mg/dL Glucose High 129 Result Comment: The [place] Diabetes Association (ADA) provides guidance for cutoff values for fasting glucose and random glucose. The ADA defines fasting as no caloric intake for at least 8 hours. Fas ting plasma glucose results between 100 to 125 mg/dL indicate increased risk for diabetes (prediabetes). Fasting plasma glucose results greater than or equal to 126 mg/dL meet the criteria for diagnosis of diabetes. In the absence of unequivocal hyperglycemia, results should be confirmed by repeat testing. In a patient with classic symptoms of hyperglycemia or hyperglycemic crisis, random plasma glucose results greater than or equal to 200 mg/dL meet the criteria for diagnosis of diabetes. Reference: Standards of Medical Care in Diabetes 2016, [place] Diabetes Association. Diabetes Care. 2016.39(Suppl 1). LAB BUN 9-24 mg/dL BUN 15 LAB CRET 0.73-1.22 mg/dL Creatinine 0.98 LAB NA 136-144 mmol/L Sodium 138 LAB K 3.7-5.1 mmol/L Potassium 4.4 LAB CL 97-105 mmol/L Chloride 99 LAB CO2 22-30 mmol/L CO2 29 LAB AGAP 9-18 mmol/L Anion Gap 10 LAB ALT 10-54 U/L ALT 18 LAB GFRAA eGFR- Amer. >60 LAB GFRNAA . eGFR-All Other Races >60 Result Comment: eGFR (Estimated GFR) Units of measure: mL/min/1.73 meters squared eGFR is derived from the reexpressed MDRD Study equation using the following parameters: serum creatinine, age, gender and race. The creatinine assay has been calibrated to be traceable to IDMS. An eGFR <60 mL/min/1.73m2 for >3 months is consistent with chronic kidney disease. Refer to KDOQI guidelines for clinical interpretation. In patients with unstable renal function, e.g. those with acute kidney injury, the eGFR may not accurately reflect actual GFR. Performed By: #### CBCDIF, CMP, NTBNP #### [facility] [place] [address] [place] [id number] NT PRO BNP Collected: 04/08/2018 Status: F Source: [place] 8:54 AM [facility] REPOSITORY TYPE CODE TESTS RESULT OUT OF REFERENCE UNITS RANGE LAB PBNP <125 pg/mL High PRO B Natr 978 Peptide Performed By: #### CBCDIF, CMP, NTBNP #### [place] [id number] HEMOGLOBIN A1C Collected: 04/08/2018 Status: F Source: [place] 8:54 AM [facility] REPOSITORY TYPE CODE TESTS RESULT OUT OF REFERENCE UNITS RANGE LAB HGBA1C 4.3-5.6 % High Hemoglobin A1c 8.2 LAB HBA0 mg/dL Est. Average Glucose 189 Result Comment: eAG: (Estimated average glucose) is a calculated value from HgbA1c and is construction sales representative of the average blood glucose level in the last 2-3 month period. Performed By: #### HBA1C #### [place] [id number] [place] [id number] PROGRESS Observed: 04/08/2018 Status: COMPLETED Source: [place] 8:45 AM [facility] REPOSITORY O ID: [id number] Author: Martínez Robin (Rt) Service: (none) Author Type: Career Resource Technician Type: Progress Notes Filed: 04/08/2018 8:45 AM Note Text: Radiology Service Progress Note PATIENT NAME: Jayde Kyle DATE OF SERVICE: April 08, 2018 TIME: 8:45 AM PATIENT IDENTITY VERIFICATION COMPLETED USING TWO (2) METHODS: Patient confirmed name verbally and Date of . PATIENT GENDER DATA: Female. status: : No status: NO. PATIENT RELEVANT IMPLANT DATA REVIEWED: Not Applicable RADIOLOGY DEPARTMENT: General X-ray: Exam(s) Completed: Chest X-Ray PERIPHERAL IV DATA: Not applicable SIGNED BY: RT Christian April 08, 2018 8:45 AM XR CHEST 2V FRONTAL/LAT Observed: 04/08/2018 Status: F Source: [place] 8:43 AM [facility] REPOSITORY * * *Final Report* * * DATE OF EXAM: Apr 08 2018 8:43AM HAN[facility] [id number] - XR CHEST 2V FRONTAL/LAT / PROCEDURE REASON: Nonrheumatic aortic (valve) stenosis * * * * Physician Interpretation * * * * EXAMINATION: CHEST RADIOGRAPH (2 VIEW FRONTAL and LATERAL) CLINICAL HISTORY: Nonrheumatic aortic (valve) stenosis MQ: XC2_5 Comparison: PA and lateral CXR dated 05/01/2015 RESULT: Lines, tubes, and devices: None. Lungs and pleura: There is stable elevation or eventration of the left hemidiaphragm with passive atelectasis of the left lung base. There is vascular redistribution with bilateral mid to lower lung reticular densities suggestive of interstitial edema. No pleural effusion or pneumothorax is identified. Cardiomediastinal silhouette: Stable cardiomediastinal silhouette. The cardiac silhouette appears enlarged. There are atherosclerotic calcifications in the aortic arch. Other: There are degenerative changes in the thoracic spine. IMPRESSION: Little change in radiographic appearance of the chest from 05/01/2015. There are radiographic findings suggestive of CHF/interstitial edema. Manufacturing Technologist: [facility] Transcribe Date/Time: Apr 08 2018 11:36A Dictated by : BRAD NOGUERA MD This examination was interpreted and the report reviewed and electronically signed by: BRAD NOGUERA MD on Apr 08 2018 11:38AM EST [id number] ECG COMPLETE W Observed: 04/08/2018 Status: F Source: [place] INTERPRETATION 8:34 AM [facility] REPOSITORY NAME : JAYDE KYLE PID : [id number] : 1950 Gender : Male Race : ORD : [id number] Procedure Date : Apr 08 2018 08:34:20 Edit Date : Apr 09 2018 10:36:19 Diagnosis:ATRIAL FIBRILLATION ABNORMAL ECG Confirmed by FARHAN STERLING M.D. ([id number]) on 04/09/2018 10:36:17 AM Ventricular Rate : 96 BPM Atrial Rate : 394 BPM QRS Duration : 106 ms Q-T Interval : 376 ms QTC Calculation(Bezet) : 475 ms R [place] : 27 degrees T [place] : -37 degrees Test Reason : Location : 314 : J14 Overread By : FARHAN STERLING M.D. Edited By : FARHAN STERLING M.D. Referred By : KAI GOLDSMITH Acquired by : GREER CHAPPELL PROGRESS Observed: 04/07/2018 Status: COMPLETED Source: [place] 2:32 PM [facility] [place] REPOSITORY HNO ID: [id number] Author: Mera Taylor [facility] Service: (none) Author Type: (none) Type: Progress Notes Filed: 04/09/2018 8:49 AM Note Text: Please file labs I will call and/or send appointment/lab letter to remind patient. PROGRESS Observed: 04/07/2018 Status: COMPLETED Source: [place] 2:24 PM [facility] REPOSITORY HNO ID: [id number] Author: Mera Taylor [facility] Service: (none) Author Type: (none) Type: Progress Notes Filed: 04/09/2018 8:49 AM Note Text: PHMA TEAMLET DOCUMENTATION Provider Action/FYI: Please file labs hgba1c done last in August - 03/04/18 Lipid 12/29/17 PSR Action/FYI: Order labs and update HM with outside lab results Discuss HM Teamlet has identified patient by name and date of . Team: Dr. Osmin Tesfaye ? Last Office Visit:Visit date not found ? Next Office Visit: Visit date not found ? Last BP/Labs: Blood Pressure: Last 3 Encounter BP Readings: Date: BP: 02/10/2018 100/60 01/25/2018 100/74 08/05/2017 110/80 Lipids: Cholesterol, Total (mg/dL) Date Value 08/05/2017 180 12/12/2015 145 HDL Cholesterol (mg/dL) Date Value 08/05/2017 34 12/12/2015 33 LDL Cholesterol (mg/dL) Date Value 08/05/2017 126 12/12/2015 100 Triglyceride (mg/dL) Date Value 08/05/2017 98 12/12/2015 62 HGB A1C: Lab Results Component Value Date HBA1C 9.1 08/05/2017 HBA1C 8.0 01/28/2017 HBA1C 6.8 12/12/2015 TSH: TSH (uU/mL) Date Value 12/11/2014 1.890 08/09/2014 1.720 ) Care Gap: CHF DM - Last HGBA1C is NOT under 9% Plan: ? Confirm PCP / Status - active ? Type of appointment needed: Upcoming appointment 05/14/18 - needs labs ordered prior to that appointment ? Consultation Appointments: n/a Labs, HM and Immunization: Health Maintenance Due: DTAP,TDAP,TD(1 - Tdap) due on 1969 ADULT PREVNAR-13 due on 2015 HBA1C due on 11/03/2017 URINE ALBUMIN:CREATININE RATIO due on 01/28/2018 INFLUENZA(1) due on 04/03/2018 Mera Taylor Cma CNPTOUTREACH Observed: 04/07/2018 Status: COMPLETED Source: [place] 12:00 AM [facility] REPOSITORY Patient Outreach (INTMWS) JAYDE KYLE ([id number]) 1950 M Date Time Provider Department 04/07/18 MERA TAYLOR ([facility]) INTMWS During your visit today, we recorded the following information about you: Mera Taylor Cma 04/09/2018 8:49 AM Signed PHMA TEAMLET DOCUMENTATION Provider Action/FYI: Please file labs hgba1c done last in August Bmp - 03/04/18 Lipid 12/29/17 PSR Action/FYI: Order labs and update HM with outside lab results Discuss HM Teamlet has identified patient by name and date of . Team: Dr. Osmin Tesfaye ? Last Office Visit:Visit date not found ? Next Office Visit: Visit date not found ? Last BP/Labs: Blood Pressure: Last 3 Encounter BP Readings: Date: BP: 02/10/2018 100/60 01/25/2018 100/74 08/05/2017 110/80 Lipids: Cholesterol, Total (mg/dL) Date Value 08/05/2017 180 12/12/2015 145 HDL Cholesterol (mg/dL) Date Value 08/05/2017 34 12/12/2015 33 LDL Cholesterol (mg/dL) Date Value 08/05/2017 126 12/12/2015 100 Triglyceride (mg/dL) Date Value 08/05/2017 98 12/12/2015 62 HGB A1C: Lab Results Component Value Date HBA1C 9.1 08/05/2017 HBA1C 8.0 01/28/2017 HBA1C 6.8 12/12/2015 TSH: TSH (uU/mL) Date Value 12/11/2014 1.890 08/09/2014 1.720 ) Care Gap: CHF DM - Last HGBA1C is NOT under 9% Plan: ? Confirm PCP / Status - active ? Type of appointment needed: Upcoming appointment 05/14/18 - needs labs ordered prior to that appointment ? Consultation Appointments: n/a Labs, HM and Immunization: Health Maintenance Due: DTAP,TDAP,TD(1 - Tdap) due on 1969 ADULT PREVNAR-13 due on 2015 HBA1C due on 11/03/2017 URINE ALBUMIN:CREATININE RATIO due on 01/28/2018 INFLUENZA(1) due on 04/03/2018 [facility] 04/09/2018 8:49 AM Signed Please file labs I will call and/or send appointment/lab letter to remind patient. [facility] 04/09/2018 8:49 AM Signed Completed labs yesterday. Allergies As of Date: 04/07/2018 Noted Allergy Reaction SEASONAL ALLERGIES 10/04/2012 8 - GI Upset Comments: headache Date Reviewed: 02/10/2018 Reviewed by: Lilian Yadav LPN - Fully Assessed Reason for Visit: PHMA/Care Gap Outreach [[id number]] Primary Visit Diagnosis:Uncontrolled type 2 diabetes mellitus without complication, without long-term current use of insulin (HCC) [E11.65] Order(s):LIPID PANEL - EXTERNAL [0722823] Order #: [id number] HGB A1C [WRNQR5B] Order #: [id number] FUTURE ALBUMIN/CREAT RATIO RND UR [SQUACR] Order #: [id number] FUTURE Prescriptions as of 04/07/2018 Sig: DILTIAZEM SR 120 MG 24 HR CAP Take 1 capsule by mouth once * FUROSEMIDE 40 MG TABLET Take 40 mg by mouth once dalia* METFORMIN ER 500 MG TABLET,EX* Take 1 tablet by mouth twice * X WARFARIN 5 MG TABLET TAKE 1 TABLET DAILY ON * X WARFARIN 1 MG TABLET TAKE 1 TABLET ON THU, THU, FR* X DOXYCYCLINE MONOHYDRATE 100 M* Take 1 tablet by mouth twice * X WARFARIN 5 MG TABLET TAKE 1 TABLET DAILY ON * COMPOUNDED PRESCRIPTION Organically Bound Minerals COMPOUNDED PRESCRIPTION Cardiotrophin PMG COMPOUNDED PRESCRIPTION Forever [facility] C COMPOUNDED PRESCRIPTION Cataplex E2 X COMPOUNDED PRESCRIPTION Vitamin O dietary supplement X COMPOUNDED PRESCRIPTION Cardio-Plus X COMPOUNDED PRESCRIPTION Boswellia complex X COMPOUNDED PRESCRIPTION Glucosamine Synergy X FUROSEMIDE 20 MG TABLET Take 1 tablet by mouth once d* X WARFARIN 1 MG TABLET Take 6mg on Thursday, Thursday* X WARFARIN 5 MG TABLET Take 6mg Thu,Thu,Thu,Sat,Sun * X OTC PRODUCT [facility] Sea: Take 4 capsules b* X ALOE VERA ORAL Take 3 Tablespoonsful by mout* Problem List As Of Date 04/07/2018 Noted Resolved 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] INVALID [...] Class I, BMI 30-34.9 [E66.9] INVALID FOR* Phimosis [N47.1] INVALID FOR* Severe aortic stenosis [I35.0] INVALID FOR* Dyslipidemia [E78.5] INVALID FOR* Uncontrolled type 2 diabetes mellitus without c*INVALID FOR* Leg ulcer, left, limited to breakdown of skin (*INVALID FOR* Encounter Status:Closed by MERA TAYLOR CMA on 04/09/18 12 LEAD ELECTROCARDIOGRAM Observed: 03/08/2018 Status: F Source: [place] 1:39 PM [facility] REPOSITORY [facility] Cardiovascular Services [address] [place] [id number] 12 Lead EKG 03/04/18 1208 MR#: [id number] Acct: [id number] Name: JAYDE KYLE Rep #: [id number] : 1950 68 From: Rudolph Flores MD Attending Dr: Oral Candelaria MD Status: REG CLI Ordering Dr: Oral Candelaria MD Date: 03/04/18 Location: LAB Sex: M C Admitted: Test Reason : PREOP Blood Pressure : / mmHG Vent. Rate : 101 BPM Atrial Rate : 220 BPM P-R Int : 000 ms QRS Dur : 106 ms QT Int : 360 ms P-R-T Axes : 000 069 -24 degrees QTc Int : 466 ms Atrial fibrillation with rapid ventricular response Low voltage QRS (limb leads) Nonspecific T wave abnormality Abnormal ECG Confirmed by USAMA CUMMINS, RUDOLPH ([id number]), video news editor JET NEGRETE ([id number]) on 03/08/2018 1:38:34 PM Referred By: Oral Candelaria Confirmed By:RUDOLPH FLORES MD 03/08/18 1338 Date Rudolph Flores MD CC: Macho Faria DO; Oral Candelaria MD Signed BASIC METABOLIC Collected: 03/04/2018 Status: F Source: [place] PROFILE (BMP) 11:53 AM [facility] REPOSITORY TYPE CODE TESTS RESULT OUT OF RANGE REFERENCE UNITS LAB L501.0100 74-106 mg/dL High GLU 190 Result Comment: Fasting Glucose result greater than or equal to 126 mg/dL suggests DIABETES MELLITUS per A.D.A. criteria. Please note revised GLUCOSE reference range effective 2017. LAB L501.1000 7-18 mg/dL High BUN 20 LAB L501.1100 0.70-1.30 mg/dL Normal CREAT,SERUM 1.12 Result Comment: The validity of the calculated GFR AND GFRAA in patients over 70 years has not been determined. Clinical correlation is essential. LAB L501.1110 >60 mL/min Normal EST GFR 69 Result Comment: Non- GFR Calc LAB L501.1115 >60 mL/min Normal EST GFR - AA 84 Result Comment: GFR Calc LAB L501.1300 10-20 RATIO Normal BUN/CRE 17.9 LAB L501.2200 8.5-10.1 mg/dL CA Normal 8.5 LAB L501.5300 136-145 mmol/L NA Normal 136 LAB L501.5600 3.5-5.1 mmol/L K Normal 4.1 LAB L501.5900 98-107 mmol/L CL Normal 101 LAB L501.6100 21.0-32.0 mmol/L High CO2 33.0 LAB L501.6200 5-15 Low GAP 2 Performed By: #### L500.2500 #### [facility] [address] [place], [place], [id number] CBC-COMPLETE BLOOD CNT Collected: 03/04/2018 Status: F Source: LISA NO DIFF 11:53 AM [facility] REPOSITORY TYPE CODE TESTS RESULT OUT OF RANGE REFERENCE UNITS LAB L100.1000 4.4-11.0 K/mm3 Normal WBC 6.5 LAB L100.1200 4.6-6.2 M/mm3 Low RBC 4.31 LAB L100.1300 13.0-16.5 g/dl Normal HGB 13.9 LAB L100.1400 40-54 % Normal HCT 41.4 LAB L100.1500 80-94 fL High MCV 96.1 LAB L100.1600 27.0-32.0 pg High MCH 32.3 LAB L100.1700 32-36 g/gl Normal MCHC 33.6 LAB L100.1810 11.6-14.6 % High RDW CV 15.0 LAB L100.1820 35.1-43.9 fl High RDW SD 51.6 LAB L100.1900 150-450 K/mm3 Normal PLT 156 LAB L100.2000 6.2-12.0 fl Normal MPV 12.0 Performed By: #### L100.0500 #### [facility] [address] [place], [address] PROGRESS Observed: 02/10/2018 Status: COMPLETED Source: [place] 4:17 PM [facility] REPOSITORY HNO ID: [id number] Author: Macho Solorio Service: (none) Author Type: Physician Type: Progress Notes Filed: 02/10/2018 4:21 PM Note Text: Agree with below Macho Solorio, PROGRESS Observed: 02/10/2018 Status: COMPLETED Source: [place] 3:31 PM [facility] REPOSITORY HNO ID: [id number] Author: Radha Cadena RN Service: (none) Author Type: (none) Type: Progress Notes Filed: 02/10/2018 3:32 PM Note Text: Patient had INR completed at [facility] Patient's INR is 2.4 Patient is currently taking 6 mg MWF 5 mg TTSS Patient's last dose change was 11/20/16 due to low INR at 1.8 Patient has had no medication and no change in diet. Advised patient to continue on same dose and they would only be contacted with different instructions after provider review. Written instructions were given to patient and patient verbalized understanding. Presently, patient will call in 4 weeks for INR follow up. PROGRESS Observed: 02/10/2018 Status: COMPLETED Source: [place] 3:13 PM [facility] REPOSITORY HNO ID: [id number] Author: Macho Solorio Service: (none) Author Type: Physician Type: Progress Notes Filed: 02/10/2018 3:19 PM Note Text: Patient presents with: Follow Up: 6 months HPI: Jayde Kyle is a 67 year old male who presents to the office today for review of health conditions. Concerns today: Admits to blood glucose levels being elevated, hasn't been taking Metformin as prescribed at all. Admits to poor diet choices with starches and desserts/carbohydrates. Aortic valve stenosis, increased fatigue and leg edema previously, has increased dose of Lasix to 40 mg a day with some improvement per Dr. Howard Chronometer Adjuster, wants him to see surgeon for opinion on valve replacements. Left leg sore, lower leg, present for the last few days, no fevers or chills. No use of any topical creams on area Mr. Kyle has past history of diabetes. Since our last visit he denies excessive thirst or increased frequency of urination, chest pain or dyspnea , new or unusual visual symptoms and low sugar/hypoglycemic reactions. Follows a diabetic diet generally not very much. He is not compliant with medication(s) but is tolerating med(s) without any side effects. Patient's last HgA1C was Hemoglobin A1C (%) Date Value 08/05/2017 9.1 01/28/2017 8.0 ) Last Ophthalmology exam was within the past 12 months Mr. Kyle reports history of hyperlipidemia. Current therapy includes no current treatment. Denies side effects of muscle weakness or achiness. His most recent lipid panels are reviewed. Cholesterol, Total (mg/dL) Date Value 08/05/2017 180 HDL Cholesterol (mg/dL) Date Value 08/05/2017 34 LDL Cholesterol (mg/dL) Date Value 08/05/2017 126 Triglyceride (mg/dL) Date Value 08/05/2017 98 Mr. Kyle indicates a history of hypertension and states that he is feeling well and denies any symptoms referable to elevated blood pressure. Specifically denies headache, chest pain, palpitations, dyspnea and peripheral edema. Patient denies any side effects of his medication(s) and is compliant with their regimen. Last 3 Encounter BP Readings: Date: BP: 02/10/2018 100/60 01/25/2018 100/74 08/05/2017 110/80 He watches his diet for sodium, low fat and low cholesterol some of the time. He does not check BP's generally. Jayde gets sporadic irregular exercise. 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 Rarely cedar. Social History Main Topics Smoking status: Current Every Day Smoker Packs/day: 0.00 Years: 0.00 Types: Cigarettes, Pipe, Cigars Smokeless tobacco: Former User Types: Chew Quit date: 09/03/1982 Comment: Quit smoking cigarettes when he was 20 years old, smokes pipe occ AND cigars daily, has used some form of tobacco x 50 years. Alcohol use: No Drug use: No Social History Narrative GE adenocarcinoma- poorly undiffentiated, Dr. Rose Marie Booker and Dr. Bibiana Workman MD FAMILY HISTORY Problem Relation Age of Onset - Stroke Mother - Stroke Father - tia [OTHER] Father - Heart Brother - Diabetes Sister - Cancer Sister lymphoma x 2 - pneumonia [OTHER] Maternal Grandmother - Stroke Maternal Grandfather - Cancer Paternal Grandfather - Stroke Paternal Grandmother Allergies: ALLERGIES Allergen Reactions - Seasonal Allergies GI Upset headache Current Meds: furosemide (LASIX) 40 mg tablet Take 40 mg by mouth once daily. clotrimazole-betamethasone (LOTRISONE) cream Apply 1 application to affected area twice daily. According to Patient Handout given warfarin (COUMADIN) 5 mg tablet TAKE 1 TABLET DAILY ON THU, THU, THU, THU, SUN warfarin (COUMADIN) 1 mg tablet TAKE 1 TABLET ON THU, THU, THU WITH 5MG TABLET (6MG TOTAL) warfarin (COUMADIN) 5 mg tablet TAKE 1 TABLET DAILY ON THU, THU, THU, THU, SUN COMPOUNDED PRESCRIPTION Organically Bound Minerals COMPOUNDED PRESCRIPTION Cardio-Plus COMPOUNDED PRESCRIPTION Cardiotrophin PMG COMPOUNDED PRESCRIPTION Cataplex E2 COMPOUNDED PRESCRIPTION Boswellia complex COMPOUNDED PRESCRIPTION Glucosamine Synergy furosemide (LASIX) 20 mg tablet Take 1 tablet by mouth once daily. As needed for leg swelling diltiazem CD (CARDIZEM CD) 120 mg 24 hr capsule Take 1 capsule by mouth once daily. warfarin (COUMADIN) 1 mg tablet Take 6mg on Thursday, Thursday, and Fridays and 5mg the rest of the week warfarin (COUMADIN) 5 mg tablet Take 6mg Thu,Thu,Thu,Thu,Thu and 5mg all other days or as directed. collagenase (SANTYL) ointment Apply 1 application to affected area once daily for 14 days. metFORMIN ER (GLUCOPHAGE XR) 500 mg 24 hr tablet Take 1 tablet by mouth twice daily before meals. GENERIC OKAY doxycycline monohydrate 100 mg tablet Take 1 tablet by mouth twice daily. COMPOUNDED PRESCRIPTION Vitamin O dietary supplement COMPOUNDED PRESCRIPTION Forever Arctic C OTC PRODUCT [place] Sea: Take 4 capsules by mouth twice daily. ALOE VERA ORAL Take 3 Tablespoonsful by mouth once daily. Review of Systems: The remainder of the review of systems is negative. PE: 02/10/18 1403 BP: 100/60 Pulse: 80 Resp: 20 Temp: (!) 35.9 ?C (96.7 ?F) TempSrc: Left Tympanic Weight: 99.3 kg (219 lb) Gen: AANDO, NAD, non-toxic appearing, Pleasant, cooperative HEENT: NT/AC, PERRLA, EOMs intact b/l, nares clear and patent b/l, pharynx without erythema, exudate or lesions. Uvula midline. EACs without erythema or debris. TMs pearly martínez with intact landmarks b/l. Neck: supple, No cervical LAD, no thyromegaly, no carotid bruits CV: RRR, normal S1S2, 3/6 HSM RUSB murmurs, no gallops, no rubs, Pulses 2+ and symmetric in UE and LE b/l Lungs: normal respiratory effort, CTA b/l, no wheezing or rhonchi or rales Abd: soft, obese, NT, ND, +BS, no hepatosplenomegaly MS: FROM all 4 extremities Neuro: CN II-XII intact b/l, strength 5/5 b/l UE and LE, DTRs 2/4 UE and LE, sensation intact. Skin: warm, dry, intact, 3-4 mm ovoid stage 2 leg ulceration without signs of infection left lower mid anterior tibia ASSESSMENT/PLAN: 1. Uncontrolled type 2 diabetes mellitus without complication, without long-term current use of insulin (HCC) - ICD9: 250.02, ICD10: E11.65 (primary diagnosis) uncontrolled poorly controlled Poor adherence to plan of care. - Blood glucose monitoring on a twice a day schedule - Encouraged regular aerobic exercise and weight loss - Follow up in 3 month, sooner should any other issues arise. - Discussed diabetic education issues of jail diabetic complications, diet, medications- side effects and need for compliance and importance of exercise with patient. - BP goal of <130/80 - LDL goal of <100 - Needs to restart Metformin - METFORMIN ER 500 MG TABLET,EXTENDED RELEASE 24 HR 2. Leg ulcer, left, limited to breakdown of skin (HCC) - ICD9: 707.10, ICD10: L97.921 - wound care with once a day dressing change, f/u in office if not resolved. - COLLAGENASE CLOSTRIDIUM HISTOLYTICUM 250 UNIT/GRAM TOPICAL OINTMENT 3. Chronic anticoagulation - ICD9: V58.61, ICD10: Z79.01 - with Warfarin 4. Chronic atrial fibrillation (HCC) - ICD9: 427.31, ICD10: I48.2 - see above, continue Warfarin 5. Dyslipidemia - ICD9: 272.4, ICD10: E78.5 - poor control - Encouraged following a low fat, low cholesterol diet. - Discussed the benefits of regular aerobic exercise and weight loss. 6. Severe aortic stenosis - ICD9: 424.1, ICD10: I35.0 - f/u with Chronometer Adjuster regarding valve replacement needs Macho Solorio DO To ER if develops chest pain, shortness of breath, or severe worsening of symptoms. Discussed risks, benefits, alternatives, and potential side effects of medications. Patient expressed understanding and agreed with the plan. Macho Solorio DO [address] [place] [address] CNOV Observed: 02/10/2018 Status: COMPLETED Source: [place] 2:00 PM [facility] REPOSITORY Office Visit (FAMPWS) JAYDE KYLE ([id number]) 1950 M Date Time Provider Department 02/10/18 2:00 PM MACHO SOLORIO During your visit today, we recorded the following information about you: Temperature Pulse Respiration Blood pressure 96.7 degrees 80/minute 20/minute 100/60 Weight 99.3 kg Macho Solorio DO 02/10/2018 3:19 PM Signed Patient presents with: Follow Up: 6 months HPI: Jayde Kyle is a 67 year old male who presents to the office today for review of health conditions. Concerns today: Admits to blood glucose levels being elevated, hasn't been taking Metformin as prescribed at all. Admits to poor diet choices with starches and desserts/carbohydrates. Aortic valve stenosis, increased fatigue and leg edema previously, has increased dose of Lasix to 40 mg a day with some improvement per Dr. Howard Chronometer Adjuster, wants him to see surgeon for opinion on valve replacements. Left leg sore, lower leg, present for the last few days, no fevers or chills. No use of any topical creams on area Mr. Kyle has past history of diabetes. Since our last visit he denies excessive thirst or increased frequency of urination, chest pain or dyspnea , new or unusual visual symptoms and low sugar/hypoglycemic reactions. Follows a diabetic diet generally not very much. He is not compliant with medication(s) but is tolerating med(s) without any side effects. Patient's last HgA1C was Hemoglobin A1C (%) Date Value 08/05/2017 9.1 01/28/2017 8.0 ) Last Ophthalmology exam was within the past 12 months Mr. Kyle reports history of hyperlipidemia. Current therapy includes no current treatment. Denies side effects of muscle weakness or achiness. His most recent lipid panels are reviewed. Cholesterol, Total (mg/dL) Date Value 08/05/2017 180 HDL Cholesterol (mg/dL) Date Value 08/05/2017 34 LDL Cholesterol (mg/dL) Date Value 08/05/2017 126 Triglyceride (mg/dL) Date Value 08/05/2017 98 Mr. Kyle indicates a history of hypertension and states that he is feeling well and denies any symptoms referable to elevated blood pressure. Specifically denies headache, chest pain, palpitations, dyspnea and peripheral edema. Patient denies any side effects of his medication(s) and is compliant with their regimen. Last 3 Encounter BP Readings: Date: BP: 02/10/2018 100/60 01/25/2018 100/74 08/05/2017 110/80 He watches his diet for sodium, low fat and low cholesterol some of the time. He does not check BP's generally. Jayde gets sporadic irregular exercise. 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 Rarely cedar. Social History Main Topics Smoking status: Current Every Day Smoker Packs/day: 0.00 Years: 0.00 Types: Cigarettes, Pipe, Cigars Smokeless tobacco: Former User Types: Chew Quit date: 09/03/1982 Comment: Quit smoking cigarettes when he was 20 years old, smokes pipe occ AND cigars daily, has used some form of tobacco x 50 years. Alcohol use: No Drug use: No Social History Narrative GE adenocarcinoma- poorly undiffentiated, Dr. Rose Marie Booker and Dr. Bibiana Workman MD FAMILY HISTORY Problem Relation Age of Onset - Stroke Mother - Stroke Father - tia [OTHER] Father - Heart Brother - Diabetes Sister - Cancer Sister lymphoma x 2 - pneumonia [OTHER] Maternal Grandmother - Stroke Maternal Grandfather - Cancer Paternal Grandfather - Stroke Paternal Grandmother Allergies: ALLERGIES Allergen Reactions - Seasonal Allergies GI Upset headache Current Meds: furosemide (LASIX) 40 mg tablet Take 40 mg by mouth once daily. clotrimazole-betamethasone (LOTRISONE) cream Apply 1 application to affected area twice daily. According to Patient Handout given warfarin (COUMADIN) 5 mg tablet TAKE 1 TABLET DAILY ON THU, THU, XAVI, SAT, SUN warfarin (COUMADIN) 1 mg tablet TAKE 1 TABLET ON THU, WED, FRI WITH 5MG TABLET (6MG TOTAL) warfarin (COUMADIN) 5 mg tablet TAKE 1 TABLET DAILY ON THU, THU, THU, THU, SUN COMPOUNDED PRESCRIPTION Organically Bound Minerals COMPOUNDED PRESCRIPTION Cardio-Plus COMPOUNDED PRESCRIPTION Cardiotrophin PMG COMPOUNDED PRESCRIPTION Cataplex E2 COMPOUNDED PRESCRIPTION Boswellia complex COMPOUNDED PRESCRIPTION Glucosamine Synergy furosemide (LASIX) 20 mg tablet Take 1 tablet by mouth once daily. As needed for leg swelling diltiazem CD (CARDIZEM CD) 120 mg 24 hr capsule Take 1 capsule by mouth once daily. warfarin (COUMADIN) 1 mg tablet Take 6mg on Thursday, Thursday, and Fridays and 5mg the rest of the week warfarin (COUMADIN) 5 mg tablet Take 6mg Thu,Thu,Thu,Thu,Sun and 5mg all other days or as directed. collagenase (SANTYL) ointment Apply 1 application to affected area once daily for 14 days. metFORMIN ER (GLUCOPHAGE XR) 500 mg 24 hr tablet Take 1 tablet by mouth twice daily before meals. GENERIC OKAY doxycycline monohydrate 100 mg tablet Take 1 tablet by mouth twice daily. COMPOUNDED PRESCRIPTION Vitamin O dietary supplement COMPOUNDED PRESCRIPTION Forever Arctic C OTC PRODUCT [facility] Echovox: Take 4 capsules by mouth twice daily. ALOE VERA ORAL Take 3 Tablespoonsful by mouth once daily. Review of Systems: The remainder of the review of systems is negative. PE: 02/10/18 1403 BP: 100/60 Pulse: 80 Resp: 20 Temp: (!) 35.9 ?C (96.7 ?F) TempSrc: Left Tympanic Weight: 99.3 kg (219 lb) Gen: AANDO, NAD, non-toxic appearing, Pleasant, cooperative HEENT: NT/AC, PERRLA, EOMs intact b/l, nares clear and patent b/l, pharynx without erythema, exudate or lesions. Uvula midline. EACs without erythema or debris. TMs pearly martínez with intact landmarks b/l. Neck: supple, No cervical LAD, no thyromegaly, no carotid bruits CV: RRR, normal S1S2, 3/6 HSM RUSB murmurs, no gallops, no rubs, Pulses 2+ and symmetric in UE and LE b/l Lungs: normal respiratory effort, CTA b/l, no wheezing or rhonchi or rales Abd: soft, obese, NT, ND, +BS, no hepatosplenomegaly MS: FROM all 4 extremities Neuro: CN II-XII intact b/l, strength 5/5 b/l UE and LE, DTRs 2/4 UE and LE, sensation intact. Skin: warm, dry, intact, 3-4 mm ovoid stage 2 leg ulceration without signs of infection left lower mid anterior tibia ASSESSMENT/PLAN: 1. Uncontrolled type 2 diabetes mellitus without complication, without long-term current use of insulin (HCC) - ICD9: 250.02, ICD10: E11.65 (primary diagnosis) uncontrolled poorly controlled Poor adherence to plan of care. - Blood glucose monitoring on a twice a day schedule - Encouraged regular aerobic exercise and weight loss - Follow up in 3 month, sooner should any other issues arise. - Discussed diabetic education issues of jail diabetic complications, diet, medications- side effects and need for compliance and importance of exercise with patient. - BP goal of <130/80 - LDL goal of <100 - Needs to restart Metformin - METFORMIN ER 500 MG TABLET,EXTENDED RELEASE 24 HR 2. Leg ulcer, left, limited to breakdown of skin (HCC) - ICD9: 707.10, ICD10: L97.921 - wound care with once a day dressing change, f/u in office if not resolved. - COLLAGENASE CLOSTRIDIUM HISTOLYTICUM 250 UNIT/GRAM TOPICAL OINTMENT 3. Chronic anticoagulation - ICD9: V58.61, ICD10: Z79.01 - with Warfarin 4. Chronic atrial fibrillation (HCC) - ICD9: 427.31, ICD10: I48.2 - see above, continue Warfarin 5. Dyslipidemia - ICD9: 272.4, ICD10: E78.5 - poor control - Encouraged following a low fat, low cholesterol diet. - Discussed the benefits of regular aerobic exercise and weight loss. 6. Severe aortic stenosis - ICD9: 424.1, ICD10: I35.0 - f/u with Chronometer Adjuster regarding valve replacement needs Macho Solorio DO To ER if develops chest pain, shortness of breath, or severe worsening of symptoms. Discussed risks, benefits, alternatives, and potential side effects of medications. Patient expressed understanding and agreed with the plan. Macho Solorio DO [address] [place] [address] Referring Provider: MACHO SOLORIO [[id number]] Allergies As of Date: 02/10/2018 Noted Allergy Reaction SEASONAL ALLERGIES 10/04/2012 8 - GI Upset Comments: headache Date Reviewed: 02/10/2018 Reviewed by: Lilian Yadav LPN - Fully Assessed Reason for Visit: Follow Up [171] Cmt: 6 months Primary Visit Diagnosis:Uncontrolled type 2 diabetes mellitus without complication, without long-term current use of insulin ([facility]) [E11.65] Other Visit Diagnoses:Leg ulcer, left, limited to breakdown of skin ([facility]) [L97.921] Chronic anticoagulation [Z79.01] Chronic atrial fibrillation ([facility]) [I48.2] Dyslipidemia [E78.5] Severe aortic stenosis [I35.0] Order(s):collagenase (SANTYL) ointmentApply 1 application to affected area once daily for 14 days.Disp: 15 gRfl: 0 metFORMIN ER (GLUCOPHAGE XR) 500 mg 24 hr tabletTake 1 tablet by mouth twice daily before meals. GENERIC OKAYDisp: 60 tabletRfl: 11 Prescriptions as of 02/10/2018 Sig: FUROSEMIDE 40 MG TABLET Take 40 mg by mouth once dalia* CLOTRIMAZOLE-BETAMETHASONE 1 * Apply 1 application to affect* WARFARIN 5 MG TABLET TAKE 1 TABLET DAILY ON * WARFARIN 1 MG TABLET TAKE 1 TABLET ON THU, THU, FR* WARFARIN 5 MG TABLET TAKE 1 TABLET DAILY ON * COMPOUNDED PRESCRIPTION Organically Bound Minerals COMPOUNDED PRESCRIPTION Cardio-Plus COMPOUNDED PRESCRIPTION Cardiotrophin PMG COMPOUNDED PRESCRIPTION Cataplex E2 COMPOUNDED PRESCRIPTION Boswellia complex COMPOUNDED PRESCRIPTION Glucosamine Synergy FUROSEMIDE 20 MG TABLET Take 1 tablet by mouth once d* DILTIAZEM SR 120 MG 24 HR CAP Take 1 capsule by mouth once * WARFARIN 1 MG TABLET Take 6mg on Thursday, Thursday* WARFARIN 5 MG TABLET Take 6mg Thu,Thu,Thu,Sat,Sun * COLLAGENASE CLOSTRIDIUM HISTO* Apply 1 application to affect* METFORMIN ER 500 MG TABLET,EX* Take 1 tablet by mouth twice * DOXYCYCLINE MONOHYDRATE 100 M* Take 1 tablet by mouth twice * COMPOUNDED PRESCRIPTION Vitamin O dietary supplement COMPOUNDED PRESCRIPTION [employer] C OTC PRODUCT [facility] Sea: Take 4 capsules b* ALOE VERA ORAL Take 3 Tablespoonsful by mout* Problem List As Of Date 02/10/2018 Noted Resolved 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] INVALID [...] Class I, BMI 30-34.9 [E66.9] INVALID FOR* Phimosis [N47.1] INVALID FOR* Severe aortic stenosis [I35.0] INVALID FOR* Dyslipidemia [E78.5] INVALID FOR* Uncontrolled type 2 diabetes mellitus without c*INVALID FOR* Leg ulcer, left, limited to breakdown of skin (*INVALID FOR* Prescriptions ordered this encounter Disp Refills Start End COLLAGENASE CLOSTRIDIUM HISTOLYTICUM* 15 g 0 02/10/2018 02/24/2018 Route: TOPICAL Sig: Apply 1 application to affected area once daily for 14 days. METFORMIN ER 500 MG TABLET,EXTENDED * 60 t* 11 02/10/2018 03/12/2018 Route: ORAL Sig: Take 1 tablet by mouth twice daily before meals. GENERIC OKAY Medications Discontinued During This Encounter metFORMIN ER (GLUCOPHAGE XR) 500 mg * 60 t* 11 08/07/2017 02/10/2018 Route: ORAL Sig: Take 1 tablet by mouth twice daily before meals. GENERIC OKAY Disc: Reason for discontinue is not on file. Encounter Status:Closed by MACHO SOLORIO DO on 02/10/18 PROGRESS Observed: 02/08/2018 Status: COMPLETED Source: [place] 3:50 PM [facility] REPOSITORY HNO ID: [id number] Author: Rosa Espinal (Cns) Service: (none) Author Type: Nurse Specialist Type: Progress Notes Filed: 02/08/2018 3:52 PM Note Text: Referral received from Dr. Howard. Records have been reviewed. Normal GFR. Request has been sent to the camera tuning engineer who will arrange an appointment schedule. A TAVR packet and schedule will be mailed to Mr. Jayde Kyle's home address. ? PLEASE NOTE: Appointment schedule being sent to the patient will be for CONSULTATION AND TESTING. The TAVR procedure will be schedule at a later date after all studies have been reviewed by the multidisciplinary valve team members. CNPTOUTREACH Observed: 01/26/2018 Status: COMPLETED Source: [place] 12:00 AM [facility] REPOSITORY Patient Outreach (FAMPST) JAYDE KYLE ([id number]) 1950 M Date Time Provider Department 01/26/18 [facility] During your visit today, we recorded the following information about you: Allergies As of Date: 01/26/2018 Noted Allergy Reaction SEASONAL ALLERGIES 10/04/2012 8 - GI Upset Comments: headache Date Reviewed: 01/25/2018 Reviewed by: Jaqueline Alcala RN - Fully Assessed Visit Diagnosis:Medication management [Z79.899] Order(s):ALBUMIN/CREAT RATIO RND UR [SQUACR] Order #: [id number] FUTURE Prescriptions as of 01/26/2018 Sig: CLOTRIMAZOLE-BETAMETHASONE 1 * Apply 1 application to affect* X WARFARIN 5 MG TABLET TAKE 1 TABLET DAILY ON THU, * X WARFARIN 1 MG TABLET TAKE 1 TABLET ON Thu, FR* X METFORMIN ER 500 MG TABLET,EX* Take 1 tablet by mouth twice * X DOXYCYCLINE MONOHYDRATE 100 M* Take 1 tablet by mouth twice * X WARFARIN 5 MG TABLET TAKE 1 TABLET DAILY ON * COMPOUNDED PRESCRIPTION Organically Bound Minerals COMPOUNDED PRESCRIPTION Cardiotrophin PMG COMPOUNDED [facility]CRIPTION [facility] COMPOUNDED PRESCRIPTION Cataplex E2 X COMPOUNDED PRESCRIPTION Vitamin O dietary supplement X COMPOUNDED PRESCRIPTION Cardio-Plus X COMPOUNDED PRESCRIPTION Boswellia complex X COMPOUNDED PRESCRIPTION Glucosamine Synergy X FUROSEMIDE 20 MG TABLET Take 1 tablet by mouth once d* X DILTIAZEM SR 120 MG 24 HR CAP Take 1 capsule by mouth once * X WARFARIN 1 MG TABLET Take 6mg on Thursday, Thursday* X WARFARIN 5 MG TABLET Take 6mg Thu,Thu,Thu,Sat,Sun * X OTC PRODUCT [facility]: Take 4 capsules b* X ALOE VERA ORAL Take 3 Tablespoonsful by mout* Problem List As Of Date 01/26/2018 Noted Resolved 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] INVALID [...] Class I, BMI 30-34.9 [E66.9] INVALID FOR* Phimosis [N47.1] INVALID FOR* Encounter Status:Closed by CHARLEEN PRODUSER on 05/14/18 PROGRESS Observed: 01/25/2018 Status: COMPLETED Source: [place] 11:47 AM [facility] REPOSITORY HNO ID: [id number] Author: Sapna Arellano (Pa) Service: (none) Author Type: Physician Digital Intern Type: Progress Notes Filed: 01/25/2018 5:18 PM Note Text: [facility] [place] PATIENT INFO: Jayde Kyle 67 year old PCP: Macho Solorio DO Referred by: Macho Solorio DO Consult: Aconsultation requested by Macho Solorio DO for an opinion regarding phimosis My final recommendations communicated back to the requesting physician by way of shared Medical record. CHIEF COMPLAINT: Phimosis HPI: This is a 67 year old male, who has had phimosis , which started in 2018, and involves the Penis Patient states this moderate in severity and moderate in quality, and is happening daily Aggravating factors: No , Alleviating Factors: No . And the patientdenies having Fever, Chills, Rigors, Nausea and Vomiting VOIDING SYMPTOMS: Sprays Urine when urinating All GUROS reviewed, all were negative ALLERGY: ALLERGIES Allergen Reactions - Seasonal Allergies GI Upset headache MEDICATIONS: Current Outpatient Prescriptions: clotrimazole-betamethasone (LOTRISONE) cream Apply 1 application to affected area twice daily. According to Patient Handout given Disp: 60 g Rfl: 1 warfarin (COUMADIN) 5 mg tablet TAKE 1 TABLET DAILY ON THU, THU, XAVI, SAT, SUN Disp: 30 tablet Rfl: 2 warfarin (COUMADIN) 1 mg tablet TAKE 1 TABLET ON THU, WED, FRI WITH 5MG TABLET (6MG TOTAL) Disp: 30 tablet Rfl: 11 metFORMIN ER (GLUCOPHAGE XR) 500 mg 24 hr tablet Take 1 tablet by mouth twice daily before meals. GENERIC OKAY Disp: 60 tablet Rfl: 11 doxycycline monohydrate 100 mg tablet Take 1 tablet by mouth twice daily. Disp: 20 tablet Rfl: 0 warfarin (COUMADIN) 5 mg tablet TAKE 1 TABLET DAILY ON THU, THU, XAVI, SAT, SUN Disp: 90 tablet Rfl: 1 COMPOUNDED PRESCRIPTION Organically Bound Minerals Disp: Rfl: COMPOUNDED PRESCRIPTION Vitamin O dietary supplement Disp: Rfl: COMPOUNDED PRESCRIPTION Cardio-Plus Disp: Rfl: COMPOUNDED PRESCRIPTION Cardiotrophin PMG Disp: Rfl: COMPOUNDED PRESCRIPTION [employer]ver Arctic C Disp: Rfl: COMPOUNDED PRESCRIPTION Cataplex E2 Disp: Rfl: COMPOUNDED PRESCRIPTION Boswellia complex Disp: Rfl: COMPOUNDED PRESCRIPTION Glucosamine Synergy Disp: Rfl: furosemide (LASIX) 20 mg tablet Take 1 tablet by mouth once daily. As needed for leg swelling Disp: 30 tablet Rfl: 3 diltiazem CD (CARDIZEM CD) 120 mg 24 hr capsule Take 1 capsule by mouth once daily. Disp: 90 capsule Rfl: 3 warfarin (COUMADIN) 1 mg tablet Take 6mg on Thursday, Thursday, and Fridays and 5mg the rest of the week Disp: 30 tablet Rfl: 5 warfarin (COUMADIN) 5 mg tablet Take 6mg Thu,Thu,Thu,Sat,Sun and 5mg all other days or as directed. Disp: Rfl: OTC PRODUCT [facility] Sea: Take 4 capsules by mouth twice daily. Disp: Rfl: ALOE VERA ORAL Take 3 Tablespoonsful by mouth once daily. Disp: Rfl: No current facility-administered medications for this visit. 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 Zach Howard - COLONOSCOPY 12/30/2016 - EGD BIOPSY SING OR MULT 01/22/2018 - EGD W/ BIOPSY SNGL/MLTPL 12/20/2016 - EGD W/O OR W/BRUSH/WASH 12/2012 EGD - EGD W/O OR W/BRUSH/WASH 04/14/2013 EGD - EGD W/O OR W/BRUSH/WASH 07/19/13 EGD - HERNIA REPAIR HX umbilical Family History FAMILY HISTORY Problem Relation Age of Onset - Stroke Mother - Stroke Father - tia [OTHER] Father - Heart Brother - Diabetes Sister - Cancer Sister lymphoma x 2 - pneumonia [OTHER] Maternal Grandmother - Stroke Maternal Grandfather - Cancer Paternal Grandfather - Stroke Paternal Grandmother REVIEW OF SYSTEMS: General: General: Well developed, well nourished. No acute distress HEENT: Negative for sore throat, difficulty swallowing. Negative for frequent or significant headaches, changes in vision or hearing. Cardiovascular: No history of cardiovascular symtoms or problems. No history of angina, CHF, SD, cardiac surgery of stents. Respiratory: Negative for current cough, dyspnea. No hx of pneumonia in the past six weeks Gastrointestinal: No history of GERD, PUD, abd pain, difficulty swallowing, GI bleed. Renal: Negative for renal failure and No history of dialysis Musculoskeletal: Negative for joint pain or swelling, back pain or muscle pain. Skin: Negative for lesions, rash and itching. Psychological: No history of psychiatric symptoms or problems. Neurologic: No history of TIA's, stroke, [employer] COVERS tumor, impaired sensorium, hemiplegia, paraplegia or quadriplegia. No neurological symptoms or problems. Hematology/Oncology: No history of bleeding or clotting disorder. Pt is not taking anti-coagulation or platelet medications. No history of hematological symptoms or problems. Endocrine: No history of endocrinological symtoms or problems No history of DM; has not taken steroids w/in past 30 days. Negative for excessive sweating, thirst or hunger PHYSICAL EXAMINATION: General Appearance/ Constitutional: Well developed, well nourished, and in no apparent distress HEENT: Not examined Neck: Lymph Nodes: Not examined Cardiac: Normal Breast: Not examined Pulmonary: Ascultation: Normal Effort: Normal GI: Soft and Non-tender Peripheral Vascular: Not examined Extremities: Cyanosis absent and Edema absent Skin: Normal Neurologic: Grossly non-focal and Alert and oriented (MALE): Penis: Uncircumcised and tight phimosis Testicles: bilaterally and normal Cord/Epididymis: bilaterally and normal Vas Deferens: bilaterally and normal Scrotum: Normal ADDITIONAL DATA REVIEWED: Most recent imaging Most recent labs Results for orders placed or performed in visit on 01/25/18 UA DIP, URINE (POC) Result Value Ref Range GLUCOSE UA (POCT) Negative Negative mg/dL BILIRUBIN UA (POCT) Small (A) Negative KETONE UA (POCT) Trace Negative mg/dL SPECIFIC GRAVITY UA (POCT) >=1.030 1.005 - 1.030 HEMOGLOBIN/BLOOD UA (POCT) Negative Negative PH UA (POCT) 5.5 4.5 - 8.0 PROTEIN UA (POCT) >=300 (A) Negative mg/dL UROBILINOGEN UA (POCT) 1.0 Normal E.U./dL NITRITE UA (POCT) Negative Negative LEUKOCYTES UA (POCT) Negative Negative COLOR UA (POCT) Lena CLARITY UA (POCT) Clear IMPRESSION / PLAN: > History of Phimosis > concerned he may have trouble with perez catheter insertion > would like to to try Lotrisone and foreskin stretching before having circumcision > Patient will call if wants circumcision I spent approximately 40 minutes in this visit, with more than 50% of the time devoted to patient discussion, counseling, review of records and/or coordination of care. WINNIE Beard, [place], [place] ELIAS Observed: 01/25/2018 Status: COMPLETED Source: [place] 11:00 AM [facility] REPOSITORY Office Visit (UROLWS) JAYDE KYLE ([id number]) 1950 M Date Time Provider Department 01/25/18 11:00 AM SAPNA ARELLANO) UROLWS During your visit today, we recorded the following information about you: Pulse Blood pressure Weight 76/minute 100/74 101.2 kg Aga Shields LPN 01/25/2018 11:31 AM Signed PVR done on patient with 000 ml results. SHIRLEY Nunez 01/25/2018 5:18 PM Signed [facility] [place] PATIENT INFO: Jayde Kyle 67 year old PCP: Macho Solorio DO Referred by: Macho Solorio DO Consult: Aconsultation requested by Macho Solorio DO for an opinion regarding phimosis My final recommendations communicated back to the requesting physician by way of shared Medical record. CHIEF COMPLAINT: Phimosis HPI: This is a 67 year old male, who has had phimosis , which started in 2018, and involves the Penis Patient states this moderate in severity and moderate in quality, and is happening daily Aggravating factors: No , Alleviating Factors: No . And the patientdenies having Fever, Chills, Rigors, Nausea and Vomiting VOIDING SYMPTOMS: Sprays Urine when urinating All GUROS reviewed, all were negative ALLERGY: ALLERGIES Allergen Reactions - Seasonal Allergies GI Upset headache MEDICATIONS: Current Outpatient Prescriptions: clotrimazole-betamethasone (LOTRISONE) cream Apply 1 application to affected area twice daily. According to Patient Handout given Disp: 60 g Rfl: 1 warfarin (COUMADIN) 5 mg tablet TAKE 1 TABLET DAILY ON THU, THU, THU, THU, SUN Disp: 30 tablet Rfl: 2 warfarin (COUMADIN) 1 mg tablet TAKE 1 TABLET ON THU, THU, THU WITH 5MG TABLET (6MG TOTAL) Disp: 30 tablet Rfl: 11 metFORMIN ER (GLUCOPHAGE XR) 500 mg 24 hr tablet Take 1 tablet by mouth twice daily before meals. GENERIC OKAY Disp: 60 tablet Rfl: 11 doxycycline monohydrate 100 mg tablet Take 1 tablet by mouth twice daily. Disp: 20 tablet Rfl: 0 warfarin (COUMADIN) 5 mg tablet TAKE 1 TABLET DAILY ON THU, THU, THU, THU, SUN Disp: 90 tablet Rfl: 1 COMPOUNDED PRESCRIPTION Organically Bound Minerals Disp: Rfl: COMPOUNDED PRESCRIPTION Vitamin O dietary supplement Disp: Rfl: COMPOUNDED PRESCRIPTION Cardio-Plus Disp: Rfl: COMPOUNDED PRESCRIPTION Cardiotrophin PMG Disp: Rfl: COMPOUNDED PRESCRIPTION Forever Arctic C Disp: Rfl: COMPOUNDED PRESCRIPTION Cataplex E2 Disp: Rfl: COMPOUNDED PRESCRIPTION Boswellia complex Disp: Rfl: COMPOUNDED PRESCRIPTION Glucosamine Synergy Disp: Rfl: furosemide (LASIX) 20 mg tablet Take 1 tablet by mouth once daily. As needed for leg swelling Disp: 30 tablet Rfl: 3 diltiazem CD (CARDIZEM CD) 120 mg 24 hr capsule Take 1 capsule by mouth once daily. Disp: 90 capsule Rfl: 3 warfarin (COUMADIN) 1 mg tablet Take 6mg on Thursday, Thursday, and Fridays and 5mg the rest of the week Disp: 30 tablet Rfl: 5 warfarin (COUMADIN) 5 mg tablet Take 6mg Thu,Thu,Thu,Sat,Sun and 5mg all other days or as directed. Disp: Rfl: OTC PRODUCT [place]: Take 4 capsules by mouth twice daily. Disp: Rfl: ALOE VERA ORAL Take 3 Tablespoonsful by mouth once daily. Disp: Rfl: No current facility-administered medications for this visit. 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 Zach Howard - COLONOSCOPY 12/30/2016 - EGD BIOPSY SING OR MULT 01/22/2018 - EGD W/ BIOPSY SNGL/MLTPL 12/20/2016 - EGD W/O OR W/BRUSH/WASH 12/2012 EGD - EGD W/O OR W/BRUSH/WASH 04/14/2013 EGD - EGD W/O OR W/BRUSH/WASH 07/19/13 EGD - HERNIA REPAIR HX umbilical Family History FAMILY HISTORY Problem Relation Age of Onset - Stroke Mother - Stroke Father - tia [OTHER] Father - Heart Brother - Diabetes Sister - Cancer Sister lymphoma x 2 - pneumonia [OTHER] Maternal Grandmother - Stroke Maternal Grandfather - Cancer Paternal Grandfather - Stroke Paternal Grandmother REVIEW OF SYSTEMS: General: General: Well developed, well nourished. No acute distress HEENT: Negative for sore throat, difficulty swallowing. Negative for frequent or significant headaches, changes in vision or hearing. Cardiovascular: No history of cardiovascular symtoms or problems. No history of angina, CHF, SD, cardiac surgery of stents. Respiratory: Negative for current cough, dyspnea. No hx of pneumonia in the past six weeks Gastrointestinal: No history of GERD, PUD, abd pain, difficulty swallowing, GI bleed. Renal: Negative for renal failure and No history of dialysis Musculoskeletal: Negative for joint pain or swelling, back pain or muscle pain. Skin: Negative for lesions, rash and itching. Psychological: No history of psychiatric symptoms or problems. Neurologic: No history of TIA's, stroke, [employer] COVERS tumor, impaired sensorium, hemiplegia, paraplegia or quadriplegia. No neurological symptoms or problems. Hematology/Oncology: No history of bleeding or clotting disorder. Pt is not taking anti-coagulation or platelet medications. No history of hematological symptoms or problems. Endocrine: No history of endocrinological symtoms or problems No history of DM; has not taken steroids w/in past 30 days. Negative for excessive sweating, thirst or hunger PHYSICAL EXAMINATION: General Appearance/ Constitutional: Well developed, well nourished, and in no apparent distress HEENT: Not examined Neck: Lymph Nodes: Not examined Cardiac: Normal Breast: Not examined Pulmonary: Ascultation: Normal Effort: Normal GI: Soft and Non-tender Peripheral Vascular: Not examined Extremities: Cyanosis absent and Edema absent Skin: Normal Neurologic: Grossly non-focal and Alert and oriented (MALE): Penis: Uncircumcised and tight phimosis Testicles: bilaterally and normal Cord/Epididymis: bilaterally and normal Vas Deferens: bilaterally and normal Scrotum: Normal ADDITIONAL DATA REVIEWED: Most recent imaging Most recent labs Results for orders placed or performed in visit on 01/25/18 UA DIP, URINE (POC) Result Value Ref Range GLUCOSE UA (POCT) Negative Negative mg/dL BILIRUBIN UA (POCT) Small (A) Negative KETONE UA (POCT) Trace Negative mg/dL SPECIFIC GRAVITY UA (POCT) >=1.030 1.005 - 1.030 HEMOGLOBIN/BLOOD UA (POCT) Negative Negative PH UA (POCT) 5.5 4.5 - 8.0 PROTEIN UA (POCT) >=300 (A) Negative mg/dL UROBILINOGEN UA (POCT) 1.0 Normal E.U./dL NITRITE UA (POCT) Negative Negative LEUKOCYTES UA (POCT) Negative Negative COLOR UA (POCT) Lena CLARITY UA (POCT) Clear IMPRESSION / PLAN: > History of Phimosis > concerned he may have trouble with perez catheter insertion > would like to to try Lotrisone and foreskin stretching before having circumcision > Patient will call if wants circumcision I spent approximately 40 minutes in this visit, with more than 50% of the time devoted to patient discussion, counseling, review of records and/or coordination of care. Sapna Arellano, NORMAS, [place], PA-C Referring Provider: MACHO SOLORIO [[id number]] Allergies As of Date: 01/25/2018 Noted Allergy Reaction SEASONAL ALLERGIES 10/04/2012 8 - GI Upset Comments: headache Date Reviewed: 01/25/2018 Reviewed by: Jaqueline Alcala RN - Fully Assessed Reason for Visit: Consult [173] Cmt: need for circumcision Primary Visit Diagnosis:Phimosis [N47.1] Other Visit Diagnosis:Uncircumcised male [Z78.9] Order(s):UA DIP B/O [[id number]] Order #: [id number] UA DIP, URINE (POC) [[id number]] Order #: [id number]. #:[id number] clotrimazole-betamethasone (LOTRISONE) creamApply 1 application to affected area twice daily. According to Patient Handout givenDisp: 60 gRfl: 1 Prescriptions as of 01/25/2018 Sig: CLOTRIMAZOLE-BETAMETHASONE 1 * Apply 1 application to affect* WARFARIN 5 MG TABLET TAKE 1 TABLET DAILY ON * WARFARIN 1 MG TABLET TAKE 1 TABLET ON THU, THU, FR* METFORMIN ER 500 MG TABLET,EX* Take 1 [...] TABLET Take 6mg Thu,Thu,Thu,Sat,Sun * OTC PRODUCT [facility]: Take 4 capsules b* ALOE VERA ORAL Take 3 Tablespoonsful by mout* Problem List As Of Date 01/25/2018 Noted Resolved 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] INVALID [...] Class I, BMI 30-34.9 [E66.9] INVALID FOR* Phimosis [N47.1] INVALID FOR* Visit Notes: >> Aga Shields LPN ThuJan 25, 2018 11:31 AM Status: Signed PVR done on patient with 000 ml results. Prescriptions ordered this encounter Disp Refills Start End CLOTRIMAZOLE-BETAMETHASONE 1 %-0.05 * 60 g 1 01/25/2018 02/24/2018 Route: TOPICAL Sig: Apply 1 application to affected area twice daily. According to Patient Handout given Encounter Status:Closed by SAPNA ARELLANO PA-C on 01/25/18 OPERATIVE REPORT Observed: 01/22/2018 Status: F Source: [place] 8:40 AM [facility] REPOSITORY [facility] Medical Records Department [address] [place] [address] Operative Report 01/22/18 0835 MR#: [id number] Acct: [id number] Name: JAYDE KYLE Rep #: [id number] : 1950 67 From: Chilango Love MD PCP: Macho Faria DO Status: REG SDC Y Location: EN Problem List (1) History of esophageal cancer Status: Acute Report of Operation Date of Procedure: 01/22/18 Pre-Operative Diagnosis: Personal history of e.g. 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 67-year-old gent was taken to the endoscopy suite. His auras pharynx was anesthetized with Topex. Because of severe aortic stenosis received 25 mg Demerol and 1.5 mg of Versed is intravenous sedation. Under direct visitation GF gastroscope was inserted into the esophageal inlet. The proximal mid esophagus did not appear to be remarkable. The EG junction was at 38 cm. There was some inflammatory change in cicatrix. The scope was to be was able to be advanced into the stomach. Very mild erythema noted of the antrum. The scope was advanced through the pylorus. The first and second portions of the duodenum were inspected this did not appear to be remarkable. The scope was withdrawn back into the stomach and retroflexed. The EG junction and evidence of some cicatrix scarring was noted. I did not see any recurrent mass. The scope was placed back in antegrade viewing position. The mild erythema of the antrum noted and a biopsy was obtained. Excess fluid and air was aspirated free. The scope was withdrawn to the e.g. junction and multiple biopsy was obtained at that site of treatment. Hemostasis was intact. The scope was then additionally further withdrawn without additional abnormality. 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 Biopsies are pending. Pending the patient's oncologic course under the direction of Dr. Roc Amador and his ongoing treatment for his aortic stenosis follow-up endoscopy can be as pertinent. Medications were given at 0821. The procedure was started 0824. The procedure was completed at 0832. Cc: Dr. Macho Solorio and Dr. Roc Love M.D., F.A.C.S. Type of Anesthesia:: IV Sedation 01/22/18 0840 <Electronically signed by Chilango Love MD> Date Chilango Love MD CC: Macho Faria DO; Roc Amador MD; Chilango Love MD Signed GASTRIC BIOPSY Observed: 01/22/2018 Status: F Source: [place] 12:00 AM [facility] REPOSITORY Patient: JAYDE KYLE : 1950 (67/M) Acct Num: [id number] Phys: Ivan CUMMINS,Chilango Unit Num: [id number] Loc: EN Specimen: [id number] Received: 01/22/18954 Spec Type: Gastric Bx TISSUES TISSUES: A. Gastric mucous membrane B. Gastric mucous membrane COMMENT A. The results of immunohistochemistry for Helicobacter pylori will be reported separately ([id number]). B. Alcian blue/PAS stain with matched control is used in the evaluation of the specimen. Please make reference to previous specimen () antral biopsy with diagnosis of mild gastritis and GE junction, biopsy with diagnosis of fragments of squamous epithelium and gastric mucosa with chronic inflammation. GROSS DESCRIPTION A - Received in fixative is one container labeled with the patient's name and designated antral biopsy. The specimen consists of one irregular fragment of light nichols soft tissue that measures 0.8 x 0.2 x 0.1 cm. The specimen is totally submitted in one cassette. B - Received in fixative is one container labeled with the patient's name and designated GE junction biopsy. The specimen consists of multiple irregular fragments of light nichols soft tissue that in aggregate measure 2 x 0.5 x 0.2 cm. The specimen is totally submitted in one cassette. / SJ:higinio 01/22/18 TC:3 CPT: 20926 x2, 44709 HEADER OPERATION: EGD PRE-OP DIAGNOSIS: History stomach CA TISSUE SUBMITTED: A Antral biopsy, B GE junction biopsy MICROSCOPIC DESCRIPTION Slides are reviewed. A. The specimen shows fragments of gastric mucosa with chronic inflammatory cell infiltrates in the lamina propria consisting of lymphocytes and plasma cells, consistent with mild chronic gastritis. MICROSCOPIC DIAGNOSIS A. Antral biopsy: Mild gastritis. B. GE junction, biopsy: Fragments of gastroesophageal mucosa with chronic inflammation. Intestinal metaplasia (goblet cell metaplasia) is not identified. Negative for malignancy. SJ:higinio 01/25/18 Signed Freeman Sood 01/25/18 <signature on file> Performed By: #### PGASB #### [facility] [address] [place] [address]. [place], [id number] IMMUNOHISTOCHEMISTRY Observed: 01/22/2018 Status: F Source: [place] 12:00 AM [facility] REPOSITORY Patient: JAYDE KYLE : 1950 (67/M) Acct Num: [id number] Phys: Ivan CUMMINS,Chilango Unit Num: [id number] Loc: EN Specimen: [id number] Received: 01/25/18 - 1324 Spec Type: IMMUNO TISSUES TISSUES: A. Stomach, NOS SPECIMEN INFORMATION: Tissue Source: A Antral biopsy Clinical Info: History stomach CA Specimen Number: [id number] CPT code: 59408 METHODOLOGY: Deparaffinized sections of prefer/formalin-fixed tissue or PAP/DQ stained slides are incubated with monoclonal/polyclonal antibodies/oligonucleotide probes. Localization is made via biotin free immunoperoxidase method. Appropriate controls are performed and reacted as expected. Results on target cell population are indicated in the following table: RESULTS: ANTIBODY / CLONE RESULT Block A H Pylori (polyclonal) negative These tests were developed and their performance characteristics determined by [facility]. They may not have been cleared or approved by the U.S. Food and Drug Administration. The FDA has determined that such clearance or approval is not necessary. INTERPRETATION: A. Antral biopsy: Negative for Helicobacter pylori organisms. SJ:higinio 01/25/18 PHYSICIAN AND INSTITUTION [address] [address] Signed Freeman Sood 01/25/18 <signature on file> Performed By: #### PIMM #### [facility] [address] [place] [address]. [place], [address] HOSP Observed: 01/16/2018 Status: COMPLETED Source: [place] 12:00 AM [facility] REPOSITORY Patient Update (CATHMN) ANABELLAANGELIQUEJAYDE J ([id number]) 1950 M Date Time Provider Department 01/16/18 ROSA ESPINAL ([facility]) CATHMN During your visit today, we recorded the following information about you: Rosa Espinal RN 1ST GRADE TEACHER.SUPERVISOR [employer] 02/08/2018 3:52 PM Signed Referral received from Dr. Howard. Records have been reviewed. Normal GFR. Request has been sent to the camera tuning engineer who will arrange an appointment schedule. A TAVR packet and schedule will be mailed to Mr. Jayde Murguia Anabella's home address. ? PLEASE NOTE: Appointment schedule being sent to the patient will be for CONSULTATION AND TESTING. The TAVR procedure will be schedule at a later date after all studies have been reviewed by the multidisciplinary valve team members. Allergies As of Date: 01/16/2018 Noted Allergy Reaction SEASONAL ALLERGIES 10/04/2012 8 - GI Upset Comments: headache Date Reviewed: 12/04/2017 Reviewed by: Elisabeth Dos Santos RN - Fully Assessed Reason for Visit: Patient Update [1234] Cmt: TAVR Referral Prescriptions as of 01/16/2018 Sig: WARFARIN 5 MG TABLET TAKE 1 TABLET DAILY ON * WARFARIN 1 MG TABLET TAKE 1 TABLET ON Thu, FR* DOXYCYCLINE MONOHYDRATE 100 M* Take 1 tablet [...] Thursday* WARFARIN 5 MG TABLET Take 6mg Mon,Wed,Fri,Sat,Sun * OTC PRODUCT [facility] Sea: Take 4 capsules b* ALOE VERA ORAL Take 3 Tablespoonsful by darin* Problem List As Of Date 01/16/2018 Noted Resolved 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] INVALID [...] Class I, BMI 30-34.9 [E66.9] INVALID FOR* Encounter Status:Closed by ROSA MCMAHON RN on 02/08/18 BLOOD GASES BY CPS Collected: 12/29/2017 Status: F Source: [place] 9:00 AM [facility] REPOSITORY TYPE CODE TESTS RESULT OUT OF RANGE REFERENCE UNITS LAB L9000.9990 Normal BLD GAS ART TYPE LAB L9001.1110 7.35-7.45 Normal pH - 7.38 I-STAT LAB L9001.1210 35-45 mmHg High pCO2 - 50.7 ISTAT LAB L9001.1310 75-100 mmHG Low PO2 62 I-STAT LAB L9001.2300 22-26 mmol/L High HCO3 30.1 ISTAT LAB L9001.2400 -2 to +2 mmol/L High BE ISTAT 5 LAB L9001.2415 mmol/L Normal TOTAL CO2 32 ISTAT LAB L9001.2425 95-99 % Low SO2 ISTAT 90 Performed By: #### L9000.0800 #### [facility] Point of Care [address] [place] [address] VENOUS BLOOD GAS Collected: 12/29/2017 Status: F Source: [place] 8:52 AM [facility] REPOSITORY TYPE CODE TESTS RESULT OUT OF RANGE REFERENCE UNITS LAB L9000.9990 Normal BLD GAS MIN TYPE LAB L9002.1110 7.32-7.42 Normal VBGpH - 7.35 I-STAT LAB L9002.1212 41-51 mmHg High VBG pCO2 56.1 - ISTA LAB L9002.1310 25-40 mmHg Normal VBG PO2 32 I-STAT LAB L9002.2300 22-26 mmol/L High VBG HCO3 31 ISTAT LAB L9002.2400 -1.0-3.5 mmol/L High VBG BE 6 ISTAT LAB L9002.2410 50-70 % Normal VBG SO2 57 ISTAT LAB L9002.2415 23-33 mmol/L Normal VBG O2 CT 33 ISTAT Performed By: #### L9000.0810 #### [facility] Point of Care [address] [facility] [place] [address] PROTIME W/INR Collected: 12/29/2017 Status: F Source: [place] 6:54 AM [facility] REPOSITORY TYPE CODE TESTS RESULT OUT OF RANGE REFERENCE UNITS LAB L9200.1001 11.9-14.4 SEC Normal PROTIME ISTAT 14.4 Result Comment: Reference Range 11.9 - 14.4 LAB L9200.2000 Normal INR ISTAT 1.20 Result Comment: Critical Value > 3.5 Performed By: #### L9200.0000 #### [facility] Point of Care [address] [place] [address] ECHO, COMPLETE W/ Observed: 12/24/2017 Status: F Source: [place] CONTRAST 4:42 PM [facility] REPOSITORY [facility] Cardiovascular Services [address] [place] [address] Echo Complete W/ Contrast 12/24/17 1100 MR#: [id number] Acct: [id number] Name: JAYDE KYLE Jr. Rep #: [id number] : 1950 67 From: Zach Howard MD Attending Dr: Zach Howard MD Status: REG CLI Ordering Dr: Zach Howard MD Date: 12/24/17 Location: [facility] Sex: M C Admitted: Reason For Study: valve replacement - evaluation Procedure This was a 2D Doppler, Color Flow transthoracic echocardiogram. The study was technically difficult. PT was unable to stay awake for exam, unable to stay in position for imaging. Exam performed in department. Left Ventricle Mild concentric left ventricular hypertrophy. The estimated ejection fraction is 65 %. No regional wall motion abnormalities noted. Right Ventricle Normal size and thickness. Normal systolic function. Atria The left atrium is severely enlarged. The right atrium is severely enlarged. Normal atrial septum. Mitral Valve Mild diffuse mitral valve thickening. Mild mitral annular calcification extending into the posterior leaflet. Tricuspid Valve Normal tricuspid valve. Mild (1+) eccentric tricuspid valve insufficiency. Right ventricular systolic pressure estimated to be 45 mmHg. Moderate pulmonary hypertension. Aortic Valve Trisinus/trileaflet aortic valve. Severe diffuse aortic valve thickening. Severe diffuse aortic valve calcification. Severe aortic stenosis. Peak aortic valve gradient 59 mmHg. Mean aortic valve gradient 34 mmHg. Calculated aortic valve area (continuity equation) is 0.59 cm2. Mild (1+) aortic valve insufficiency. Pulmonic Valve Normal pulmonic valve. Great Vessels Normal aortic root. Normal arch. The inferior vena cava is dilated. Inferior vena cava collapse with respiration. Pericardium/Pleural No pericardial effusion. Medication 22 gauge I.V. with prn adaptor inserted into right arm. Diluted definity 2.0ml given slow IV push to enhance endocardial definition. MMode/2D Measurements AND Calculations LVIDd: 4.3 cm IVSd: 1.3 cm LVOT diam: 2.0 cm LVIDs: 3.2 cm LVPWd: 1.2 cm LVOT area: 3.2 cm2 RVDd: 3.5 cm FS: 26.9 % Ao root diam: 3.2 cm LAV(MOD-bp): 124.9 ml LA A4 area: 29.5 cm2 LA dimension: 4.8 cm LAV(MOD-bp) Indexed: 56.6 ml/m2 LAV(MOD-sp2): 128.1 ml LAV(MOD-sp4): 113.9 ml RA A4 area: 36.5 cm2 Doppler Measurements AND Calculations MV E max miguel: 122.1 cm/sec Ao V2 max: 371.3 cm/sec AI max miguel: 346.8 cm/sec Ao max P.2 mmHg AI max P.1 mmHg Ao V2 mean: 275.3 cm/sec AI dec slope: 192.3 cm/sec2 Ao mean P.9 mmHg AI P1/2t: 528.2 msec Ao V2 VTI: 75.5 cm ABDIRASHID(I,D): 0.58 cm2 ABDIRASHID(V,D): 0.61 cm2 LV V1 max: 70.3 cm/sec SV(LVOT): 43.5 ml PA V2 max: 59.6 cm/sec LV V1 max P.0 mmHg LV V1 mean P.0 mmHg LV V1 mean: 48.2 cm/sec LV V1 VTI: 13.6 cm TR max miguel: 264.3 cm/sec TR max P.0 mmHg Interpretation Summary The estimated ejection fraction is 65 %. The left atrium is severely enlarged. The right atrium is severely enlarged. Mild concentric left ventricular hypertrophy. Mild (1+) eccentric tricuspid valve insufficiency. Right ventricular systolic pressure estimated to be 45 mmHg. Moderate pulmonary hypertension. Severe aortic stenosis. Peak aortic valve gradient 59 mmHg. Mean aortic valve gradient 34 mmHg. Calculated aortic valve area (continuity equation) is 0.59 cm2. Mild (1+) aortic valve insufficiency. The study was technically difficult. Contrast injection was performed. There is no comparison study available. Ordering Physician: Zach Howard Referring Physician: Zach Howard Performed By: Miriam Rogers RDCS, RVT 12/24/17 1641 Date Zach Howard MD CC: Zach Howard MD; Macho Faria DO Date Dictated: 12/24/17 1100 Date Transcribed: 12/24/171640 Manufacturing Technologist: Signed LIPID PROFILE Collected: 12/24/2017 Status: F Source: [place] 10:10 AM [facility] REPOSITORY TYPE CODE TESTS RESULT OUT OF RANGE REFERENCE UNITS LAB L501.4900 200 mg/dL Normal CHOL 169 Result Comment: <200 mg/dL Desirable 200-240 mg/dL Borderline >240 mg/dL High Risk LAB L501.5000 mg/dL Normal TRIG 63 Result Comment: The drugs N-Acetylcysteine and Metamizole may falsely depress this assay. Serum Triglycerides Reference Interval Normal <150 mg/dL Borderline high 150 - 199 mg/dL High 200 - 499 mg/dL Very High > or = 500 mg/dL LAB L501.6400 mg/dL Low HDL 34 Result Comment: The drugs N-Acetylcysteine and Metamizole may falsely depress this assay. Reference Range HDL <40 mg/dL Low HDL Cholesterol HDL >or= 60 mg/dL High HDL Cholesterol LAB L501.6500 0-130 mg/dL Normal LDL 122 LAB L501.6600 5-40 mg/dL Normal VLDL 13 Performed By: #### L500.4100 #### [facility] [address] [place], [address] CBC W/DIFF, AUTOMATED Collected: 12/22/2017 Status: F Source: [place] 4:04 PM [facility] REPOSITORY TYPE CODE TESTS RESULT OUT OF RANGE REFERENCE UNITS LAB L100.1000 4.4-11.0 K/mm3 Normal WBC 7.2 LAB L100.1200 4.6-6.2 M/mm3 Low RBC 4.34 LAB L100.1300 13.0-16.5 g/dl Normal HGB 14.1 LAB L100.1400 40-54 % Normal HCT 42.2 LAB L100.1500 80-94 fL High MCV 97.2 LAB L100.1600 27.0-32.0 pg High MCH 32.5 LAB L100.1700 32-36 g/gl Normal MCHC 33.4 LAB L100.1810 11.6-14.6 % High RDW CV 15.6 LAB L100.1820 35.1-43.9 fl High RDW SD 53.8 LAB L100.1900 150-450 K/mm3 Normal PLT 152 LAB L100.2000 6.2-12.0 fl High MPV 12.5 LAB L100.2100 47-70 % Normal NEUT% 62.7 LAB L100.2200 19-41 % Normal LY% 21.4 LAB L100.2300 0-10 % High MONO% 12.1 LAB L100.2400 0-5 % Normal EO% 2.8 LAB L100.2500 0-1 % Normal BASO% 0.7 LAB L100.2550 0.0-0.9 % Normal IM GRAN % 0.300 Result Comment: IG% - Immature Granulocytes (promyelocytes, myelocytes and metamyelocytes) > 1% indicates that a LEFT SHIFT is Present. LAB L100.2620 2.0-7.7 X10 3/uL Normal Absolute Neut 4.5 LAB L100.2720 0.83-4.51 X10 3/ul Normal Absolute Lymph 1.54 Performed By: #### L100.0100, L300.3900, L300.4310 #### [facility] [address] [place], [place], [id number] PROTHROMBIN TIME W/INR Collected: 12/22/2017 Status: F Source: [place] 4:04 PM [facility] REPOSITORY TYPE CODE TESTS RESULT OUT OF RANGE REFERENCE UNITS LAB L300.4150 11.7-14.9 SECONDS High PROTIME 20.4 LAB L300.4200 Normal INR 1.7 Performed By: #### L100.0100, L300.3900, L300.4310 #### [facility] [address] [place], [place], [id number] PARTIAL THROMBOPLAST Collected: 12/22/2017 Status: F Source: [place] TIME 4:04 PM [facility] REPOSITORY TYPE CODE TESTS RESULT OUT OF RANGE REFERENCE UNITS LAB L300.4310 24.1-36.2 Seconds Normal PTT 35.4 Performed By: #### L100.0100, L300.3900, L300.4310 #### [facility] [address] [place], [address] BASIC METABOLIC Collected: 12/22/2017 Status: F Source: [place] PROFILE (BMP) 4:04 PM [facility] REPOSITORY TYPE CODE TESTS RESULT OUT OF RANGE REFERENCE UNITS LAB L501.0100 74-106 mg/dL High GLU 174 Result Comment: Fasting Glucose result greater than or equal to 126 mg/dL suggests DIABETES MELLITUS per A.D.A. criteria. Please note revised GLUCOSE reference range effective 2017. LAB L501.1000 7-18 mg/dL Normal BUN 14 LAB L501.1100 0.70-1.30 mg/dL Normal CREAT,SERUM 1.17 Result Comment: The validity of the calculated GFR AND GFRAA in patients over 70 years has not been determined. Clinical correlation is essential. LAB L501.1110 >60 mL/min Normal EST GFR 66 Result Comment: Non- GFR Calc LAB L501.1115 >60 mL/min Normal EST GFR - AA 80 Result Comment: GFR Calc LAB L501.1300 10-20 RATIO Normal BUN/CRE 12.0 LAB L501.2200 8.5-10.1 mg/dL Low CA 8.4 LAB L501.5300 136-145 mmol/L NA Normal 138 LAB L501.5600 3.5-5.1 mmol/L K Normal 4.1 LAB L501.5900 98-107 mmol/L CL Normal 99 LAB L501.6100 21.0-32.0 mmol/L Normal CO2 32.0 LAB L501.6200 5-15 Normal GAP 7 Performed By: #### L500.2500, L500.3400, L500.4100 #### [facility] [address] [facility]. [place], [place], [id number] LIVER PROFILE Collected: 12/22/2017 Status: F Source: [place] 4:04 PM [facility] REPOSITORY TYPE CODE TESTS RESULT OUT OF RANGE REFERENCE UNITS LAB L501.1500 6.4-8.2 g/dL Normal T PROT 8.0 LAB L501.1800 3.2-5.0 g/dL Normal ALB 3.3 LAB L501.1950 2.2-4.2 g/dL High GLOB 4.7 LAB L501.4100 15-37 U/L Normal AST 22 LAB L501.4305 45-117 U/L Normal ALK P 81 LAB L501.4405 16-61 U/L Normal ALT 24 LAB L501.4600 0.20-1.00 mg/dL Normal T BILI 1.00 LAB L501.4700 0.00-0.30 mg/dL Normal D BILI 0.27 Performed By: #### L500.2500, L500.3400, L500.4100 #### [facility] [address] [facility] [place], [address] LIPID PROFILE Collected: 12/22/2017 Status: F Source: [place] 4:04 PM [facility] REPOSITORY TYPE CODE TESTS RESULT OUT OF RANGE REFERENCE UNITS LAB L501.4900 200 mg/dL Normal CHOL 161 Result Comment: <200 mg/dL Desirable 200-240 mg/dL Borderline >240 mg/dL High Risk LAB L501.5000 mg/dL Normal TRIG 84 Result Comment: The drugs N-Acetylcysteine and Metamizole may falsely depress this assay. Serum Triglycerides Reference Interval Normal <150 mg/dL Borderline high 150 - 199 mg/dL High 200 - 499 mg/dL Very High > or = 500 mg/dL LAB L501.6400 mg/dL Low HDL 35 Result Comment: The drugs N-Acetylcysteine and Metamizole may falsely depress this assay. Reference Range HDL <40 mg/dL Low HDL Cholesterol HDL >or= 60 mg/dL High HDL Cholesterol LAB L501.6500 0-130 mg/dL Normal LDL 109 LAB L501.6600 5-40 mg/dL Normal VLDL 17 Performed By: #### L500.2500, L500.3400, L500.4100 #### [facility] [address] [place], [address] CHEST PA AND LATERAL Observed: 12/22/2017 Status: F Source: [place] 3:49 PM [facility] REPOSITORY [facility] Imaging Services [address] [place] [address] Chest PA and Lateral MR#: [id number] Acct: [id number] Name: JAYDE KYLE Jr. Rep #: [id number] : 1950 M 67 From: Robles Ugarte MD PCP: Macho Faria DO Status: PRE CLI Study: Chest PA and Lateral Date of Exam: 12/22/17 Exam# [id number] Ordering Dr: Zach Howard MD STUDY: X-RAY CHEST REASON FOR EXAM: Male, 67 years old. Preoperative heart catheterization. History of atrial fibrillation. History of esophageal cancer with radiation and chemotherapy. TECHNIQUE: PA and lateral chest COMPARISON: None. FINDINGS: Mild cardiomegaly. Normal mediastinal silhouette, ines and pleural margins. Prominent elevation of left hemidiaphragm. Associated with mild left lung base atelectasis. Mild generalized interstitial prominence of the lungs, chronic. Acutely the lungs appear clear. There is some hyperlucency at the apices which may reflect underlying COPD. Correlate smoking history. There is no dense focal infiltrate, effusion, pneumothorax or focally suspicious lesion. No acute osseous process. Mild scoliosis. Osteopenia. Mild thoracic degenerative disc disease. RAD/Chest PA and Lateral IMPRESSION: No acute cardiopulmonary process. Electronically Signed: Robles Shanel, at 10:57 EDT Tel , Service support , CC: Zach Howard MD; Macho Faria DO Manufacturing Technologist: Signed CARDIOLOGY VISIT Observed: 12/22/2017 Status: F Source: [place] REPORT 2:58 PM [facility] REPOSITORY [facility] [place] [address] [facility]. [address] [place] [address] OFFICE VISIT Date of Service: 12/22/17 MR#: [id number] Acct: [id number] Name: JAYDE KYLE Rep #: [id number] : 1950 Provider: Zach Howard MD Age/Sex: 67/M Location: [facility] Status: Signed HPI HPI Chief Complaint: Atrial fibrillation, aortic stenosis,establishment of care Details: Mr. Kyle is a very pleasant 67-year-old currently smoking gentleman, 668-auna-durn history, diabetic, atrial fibrillation, occasional alcohol, no previous known or diagnosed coronary artery disease or CVA. Patient was diagnosed with atrial fibrillation around 2009 at which time he was placed on Coumadin therapy and his diabetes was discovered as well. In 2012 the patient was diagnosed with esophageal cancer which apparently was nonoperative and underwent x-ray therapy and chemotherapy. His hematology oncologist is Dr. Prabhakar, and according to the patient he has been followed and apparently has had no recurrence. In 2012 he was diagnosed with aortic stenosis and was referred to Dr. Richmond. Apparently he was told that his aortic stenosis was not too bad at that time. His most recent echocardiogram dated 10/01/16 however showed that his ejection fraction was normal at 65%, he had severe left and right atrial enlargement, severe aortic stenosis with an estimated aortic valve area of 0.5 cm with a peak and mean gradient of 57 and 34 mmHg respectively. He had trivial MR and 1+ TR and AI. Over the last several months the patient has had progressively worsening fatigue, shortness of breath, and 2 episodes of positional lightheadedness and dizziness where he almost fainted requiring him to go to the ground at which time his symptoms resolved. He denies any anginal symptoms. In addition he has been intermittently taking his Lasix, only when he has orthopnea or PND. He is consequently developed significant lower extremity edema and is here for evaluation. He does report that he is compliant with his medications. In our office today's blood pressure is 102/60, pulse is 86 and regular. His physical exam demonstrates 1-2+ carotid upstroke bilaterally, irregularly irregular rhythm, normal S2, a 3/6 high-pitched crescendo decrescendo systolic murmur best heard at the lower left sternal border and radiating to the carotids and clavicles. He has 2+ bilateral lower extremity edema above his knees. Lipids are pending. EKG dated 11/13/16 shows atrial fibrillation with right axis deviation, possible old anterolateral wall myocardial infarction. Intake Vital Signs12/22/17 Height 5 ft 10 in Intake Visit Reasons: SOB/EDEMA/FATIGUE/SELF REF. Allergies No Known Allergies Allergy (Unverified 12/22/17 14:01) Medications diltiazem CD 120 mg capsule,extended release 24 hr 120 mg PO QDAY 12/21/17 [History Confirmed 12/22/17] warfarin 5 mg tablet 5 mg PO QDAY tab 12/21/17 [History Confirmed 12/22/17] cardio Plus PO 12/22/17 [History Confirmed 12/22/17] cardio trophins PO TID 12/22/17 [History Confirmed 12/22/17] cataplex PO 12/22/17 [History Confirmed 12/22/17] furosemide 40 mg tablet 40 mg PO QDAY #30 tab 12/22/17 [Rx Confirmed 12/22/17] intenzyme forte PO 12/22/17 [History Confirmed 12/22/17] organically bound minerals PO 12/22/17 [History Confirmed 12/22/17] PFSH Family History Mother CVA (cerebral vascular accident) Father CVA (cerebral vascular accident) Sister Diabetes Brother Heart disease Social History Smoking Status: Current some day smoker ROS Const Const: Positive for weakness and fatigue; negative for difficulty sleeping, frequent falls, headache(s) or excessive sweating Eyes Eyes: Negative for loss of peripheral vision, transient loss of vision, blurry vision or double vision ENT ENT: Negative for Nosebleed/epistaxis, dizziness, headache(s) or balance problems Cardio Chest Pain: No Edema: Bilateral (BLE from knees down. Compression stockings in place) Muscle aches with walking: None Resp Respiratory: Positive for SOB with activity; negative for SOB at rest, SOB orthopnea\SOB lying down or paroxysmal nocturnal dyspnea GI GI: Negative nausea or heartburn : Negative for hematuria Musc Musc: Positive for muscle weakness (BLE with ambulation); negative for muscle aches/ myalgia, joint pain or balance problems Skin Skin: Negative non-healing lesions, unusual bruising or rash Neuro Neuro: Positive for weakness; negative for blurry vision, dizziness, lightheadedness, orthostatic symptoms, double vision, frequent falls or headache(s) Tyson Hematologic/Lymphatic: Negative for easy bruising Endo Endo: Positive for fatigue; negative for excessive sweating or increased thirst/drinking Psych Psych: Negative for anxiety or depression Allergy Allergy/Immunology: Negative for hives, Negative for rash Cardiology Exam Const Appearance: cooperative, healthy appearing and no acute distress Nutritional Appearance: well nourished Orientation: alert, oriented x3 and oriented to person Head Head: normal to inspection, atraumatic and normocephalic Nose: external nose normal Face and Sinus: face symmetric Mouth: oral mucosae normal Eyes General: appearance normal, both eyes and all related structures Eyelids: eyelids normal Conjunctivae: conjunctivae normal Pupils: PERRL and normal by confrontation EOM: EOM intact bilaterally Neck Neck: normal visual inspection and full ROM Carotids: normal carotid upstroke Chest Chest inspection: normal inspection of the chest Auscultation: Bilateral: Clear to Auscultation Cardio Palpation: normal PMI Rate: regular rate Rhythm: irregularly irregular Heart sounds: S2 normal Murmur: crescendo-decrescendo, Grade 3/6, LVOT and loud GI GI: normal to inspection, no hepatosplenomegaly and bowel sounds present Neuro General: alert, oriented x3, awake, CN's II-XI intact bilaterally and moves all extremities Skin Skin: no rashes or lesions noted Extremities Pulses: Normal: Right Femoral Pulse, Left Femoral Pulse, Right Dorsalis Pedis Pulse, Left Dorsalis Pedis Pulse, Right Posterior Tibial Pulse, Left Posterior Tibial Pulse, Right Radial Pulse, Left Radial Pulse Lower Extremity Edema: None: Bilateral Psych Psychological: normal affect Assessment AND Plan 1. Non-rheumatic aortic stenosis I35.0 Plan 1. Aortic stenosis: The patient has signs and symptoms of feeling medical therapy in the face of severe aortic stenosis as diagnosed by echocardiogram in 2017. He has worsening lower extremity edema, fatigue, shortness of breath and positional lightheadedness and dizziness. His estimated aortic valve area was 0.57 cm . At this point I recommended the patient undergo a repeat 2D echo with Doppler to establish his LV function, valvular status and to evaluate his other valves for possible aortic valve replacement or T AVR. I would not recommend ELIO at this time given the patient's history of esophageal cancer requiring chemotherapy and x-ray therapy. In addition I recommend he undergo a left and right heart catheterization with bridging with Lovenox to determine if he needs concomitant bypass surgery or just simply aortic valve replacement. If he requires no coronary bypass, I recommend referring him to the [facility] for T AVR. If he requires both aortic valve replacement and T AVR would recommend referral to [facility] or 1 of the local hospitals. I had a long and thorough discussion with the patient and explained the risks/benefits of the procedure to he and his family and they have agreed to proceed. Would not recommend Plavix at this time as we do not have plans for PCI at this time. In addition he will start Lasix 40 mg p.o. daily and attempt to reduce his lower extremity edema. He will return office in 2 weeks time for a blood pressure check. Orders Orders: 2. Hyperlipidemia E78.5 Plan 2. Hyperlipidemia: Given the patient's risk factors recommend aggressive LDL reduction. Recommend obtaining a lipid profile if not already done so. Orders Orders: 3. Chronic atrial fibrillation I48.2 Plan 3. Atrial fibrillation: Given the patient's aortic stenosis and atrial fibrillation and severe biatrial enlargement and I believe he requires bridging of his Coumadin with subcu Lovenox. Will make arrangements for instructions for subcu Lovenox. In the meantime he will continue his diltiazem and Coumadin. 4. Return office in 6 months. This note was generated using a voice recognition system and there may be incorrect words, spelling or punctuation that were not noted when reviewing the office note prior to saving. Orders Orders: Plan Detail Other Orders Orders: Other Medications New: Discontinued: Follow Up +6M (Howard) +2 weeks (BP check) Coding Level of Care Code Off vis,new,level 4 Diagnoses Non-rheumatic aortic stenosis I35.0 Hyperlipidemia E78.5 Chronic atrial fibrillation I48.2 Coding Level of Care Code Off vis,new,level 4 Diagnoses Non-rheumatic aortic stenosis I35.0 Hyperlipidemia E78.5 Chronic atrial fibrillation I48.2 12/22/17 1458 <Electronically signed by Zach Howard MD> Date Zach Howard MD Cosigner Signature: Date (if applicable) CC: Macho Faria DO 12 LEAD EKG PERFORMED Observed: 12/22/2017 Status: F Source: [place] BY [facility] 2:03 PM [facility] REPOSITORY [facility] [address] [place] [address] 12 Lead EKG performed by [facility] 12/22/17 1401 MR#: [id number] Acct: [id number] Name: JAYDE KYLE Jr. Rep #: [id number] : 1950 67 From: Zach Howard MD Attending Dr: Zach Howard MD Status: DEP AMB Ordering Dr: Zach Howard MD Date: 12/22/17 Location: [facility] Sex: M C Admitted: BMS/12 Lead EKG performed by [facility] ECG Report Interpretation Atrial fibrillation -irregular conduction Low voltage in limb leads. -Poor R- wave progression -may be secondary to pulmonary disease consider old anterior infarct. - Nonspecific T-abnormality. ABNORMAL Electronically signed on 07/16/2018 at 15:24 by Zach Howard 07/16/18 1526 Date Zach Howard MD CC: Macho Faria DO Date Dictated: 12/22/17 140 Date Transcribed: 12/22/171400 Manufacturing Technologist: Signed PROGRESS Observed: 12/04/2017 Status: COMPLETED Source: [place] 3:09 PM [facility] REPOSITORY HNO ID: [id number] Author: Macho Solorio Service: (none) Author Type: Physician Type: Progress Notes Filed: 12/04/2017 4:37 PM Note Text: Agree with below Macho Solorio DO PROGRESS Observed: 12/04/2017 Status: COMPLETED Source: [place] 3:05 PM [facility] REPOSITORY HNO ID: [id number] Author: Elisabeth Dos Santos RN Service: (none) Author Type: (none) Type: Progress Notes Filed: 12/04/2017 3:07 PM Note Text: patient had inr completed at [facility] patients inr is 2.7 (patients inr range is 2.0-3.0) patient is currently taking 6mg Mon,Wed,Fri and 5mg all other days patients last dose change was on 09/30/16 due to a low level of 1.5 (dose at that time was 6mg Mon,Fri and 5mg all other days) patient has had no changes in medication and no missed doses and no change in diet Advised patient to continue on the same dose(s) and that they would only be contacted regarding dosage and follow up instructions after review with provider, if a change is needed. Written instructions given and patient verbalized understanding. Presently scheduled in 4 weeks (pt will call to schedule) for follow up INR. PROGRESS Observed: 09/16/2017 Status: COMPLETED Source: [place] 4:04 PM [facility] REPOSITORY HNO ID: [id number] Author: Macho Solorio Service: (none) Author Type: Physician Type: Progress Notes Filed: 09/16/2017 4:35 PM Note Text: Agree with below Macho Solorio, DO PROGRESS Observed: 09/16/2017 Status: COMPLETED Source: [place] 3:39 PM [facility] REPOSITORY HNO ID: [id number] Author: Elisabeth Dos Santos RN Service: (none) Author Type: (none) Type: Progress Notes Filed: 09/16/2017 3:41 PM Note Text: patient had inr completed at [facility] patients inr is 2.2 (patients inr range is 2.0-3.0) patient is currently taking 6mg Mon,Wed,Fri and 5mg all other days patients last dose change was on 09/30/16 due to a low level of 1.5 (dose at that time was 6mg Mon,Fri and 5mg all other days) patient has had no changes in medication and no missed doses and no change in diet .Advised patient to continue on the same dose(s) and that they would only be contacted regarding dosage and follow up instructions after review with provider, if a change is needed. Written instructions given and patient verbalized understanding. Presently scheduled in 4 weeks (pt will call to schedule) for follow up INR. ALLERGIES ALLERGIES DATE TYPE / CODE NAME / CODE REACTION SEVERITY SOURCE 07/16/2018 Drug No Known Unknown Lisa [facility] Allergy/416 Allergies/R86347 [facility] 848606(SNOM 0388(RXNORM) Repository ED CT) 10/04/2012 Environ/420 SEASONAL GI UPSET [facility] 662802(SNOM ALLERGIES [facility] [place] ED CT) Repository ENCOUNTERS ENCOUNTERS ADMIT/DISCHARGE ACCOUNT ADMITTING ENCOUNTER LOCATION SOURCE NUMBER CLASS 08/17/2018/08/17/19 [id number] Ambulatory BMS[facility] Repository 08/13/2018/08/20/19 [id number] Ambulatory [address] Repository 08/13/2018/08/13/19 [id number] Ambulatory [address] Repository 08/13/2018/08/13/19 [id number] Ambulatory [address] Repository 08/13/2018/01/18/20 [id number] Ambulatory [facility] [place] Repository 08/13/2018/08/13/19 [id number] Ambulatory [facility] [place] Repository 08/09/2018/08/12/19 [id number] Ambulatory [facility] [place] Repository 07/30/2018 [id number] Ambulatory [facility] ing:LABSPEC Repository 07/30/2018/07/30/20 [id number] Ambulatory [facility] [place] Repository 07/21/2018/07/29/20 [id number] Ambulatory [facility] [place] Repository 07/19/2018/07/22/20 [id number] Ambulatory [place] [facility] [place] Repository 07/19/2018/07/19/20 [id number] Ambulatory [place] [facility] [place] Repository 07/19/2018/07/19/20 [id number] Ambulatory [place] [facility] [place] Repository 07/16/2018/07/16/20 [id number] Emergency [address] ing:ED Repository 07/16/2018/07/22/20 [id number] Ambulatory [facility] [place] Repository 07/14/2018/07/14/20 [id number] Ambulatory [facility] [place] Repository 07/14/2018/07/14/20 [id number] JORGE, Ambulatory [place] 18 VANESSA R [facility] [place] Repository 07/13/2018/07/13/20 [id number] Ambulatory [facility] [place] Repository 07/13/2018/07/14/20 [id number] JORGE, Inpatient [place] [facility] VANESSA R Encounter [facility] [place] Repository 07/12/2018/07/12/20 [id number] Ambulatory [facility] [place] Repository 07/12/2018/07/12/20 [id number] Ambulatory [facility] [place] Repository 07/12/2018/07/12/20 [id number] Ambulatory [facility] [place] Repository 07/12/2018/07/22/20 [id number] Ambulatory [facility] [place] Repository 07/12/2018/07/12/20 [id number] Ambulatory [facility] [place] Repository 07/12/2018/08/09/19 [id number] Ambulatory [facility] [place] Repository 07/12/2018/07/12/20 [id number] Ambulatory [facility] [place] Repository 07/12/2018/07/12/20 [id number] Ambulatory [facility] [place] Repository 07/12/2018/07/12/20 [id number] Ambulatory [facility] [place] Repository 05/31/2018/06/03/20 [id number] Ambulatory [facility] [place] Repository 05/14/2018/05/19/20 [id number] Ambulatory [facility] [place] Repository 05/14/2018/05/19/20 [id number] Ambulatory [facility] [place] Repository 04/12/2018/04/28/20 [id number] Ambulatory [facility] [place] Repository 04/12/2018/04/12/20 [id number] Ambulatory [facility] [place] Repository 04/12/2018/04/12/20 [id number] Ambulatory [facility] [place] Repository 04/12/2018/04/12/20 [id number] Ambulatory [facility] [place] Repository 04/12/2018/04/15/20 [id number] Ambulatory [facility] [place] Repository 04/08/2018/04/08/20 [id number] Ambulatory [facility] [place] Repository 04/08/2018/04/08/20 [id number] Ambulatory [facility] [place] Repository 04/08/2018/04/08/20 [id number] Ambulatory [facility] [place] Repository 04/08/2018/04/08/20 [id number] Ambulatory [facility] [place] Repository 04/08/2018/04/08/20 [id number] Ambulatory [facility] [place] Repository 04/08/2018/04/08/20 [id number] Ambulatory [facility] [place] Repository 03/04/2018 [id number] Ambulatory [facility] ing:LAB Repository 03/04/2018 [id number] Ambulatory BMSBuilding:[facility] Repository 02/10/2018/02/12/20 [id number] Ambulatory [facility] [place] Repository 02/10/2018/02/12/20 [id number] Ambulatory [facility] [place] Repository 01/25/2018/02/10/20 [id number] Ambulatory [address] Repository 01/22/2018/01/23/20 [id number] Ambulatory Lisa Lisa[address] Hospital ing:EN Repository 01/22/2018 [id number] Ambulatory BMSBuilding:Marvel Gonzalez MS.[facility] Repository 01/07/2018/01/08/20 [id number] Ambulatory BMSBuilding:Marvel Gonzalez [facility] Repository 12/29/2017 [id number] Ambulatory [facility] Hospital ing:CLSP Repository 12/29/2017 [id number] Ambulatory BMSBuilding:[facility] Repository 12/24/2017 [id number] Ambulatory [facility] Hospital ing:[facility] Repository 12/24/2017 [id number] Ambulatory BMSBuilding:[facility] Repository 12/22/2017/12/23/19 [id number] Ambulatory [facility] Rep[facility] 12/21/2017 [id number] Amb[facility] Repository 12/04/2017/12/08/19 [id number] Ambulatory [address] Repository 09/16/2017/09/17/19 [id number] Ambulatory [address] Repository PAYERS PAYERS ENCOUNTER GUARANTOR PAYER SUBSCRIBER SOURCE 08/17/2018 JAYDE Murguia Primary JAYDE Gonzalez [id number] S Insurance:[facility] [place]: [id number] [id number] Repository 15911Ayq: (330) Date:2018-07-28 [phone] (HP) 08/17/2018 Secondary NOT GIVENUNK Lisa Insurance:SELF PAY [facility] Number: Effective Repository Date:2018-08-17 07/30/2018 JAYDE Murguia Primary JAYDE [place] [id number] S Insurance:[facility]: [facility] Number: [id number], [place] [id number] Repository 35865Gqz: (330) Date:2018-07-30 () 07/30/2018 Secondary NOT GIVENUNK Lisa Insurance:SELF PAY [facility] Number: Effective Repository Date:2018-07-30 07/16/2018 JAYDE Murguia Primary JAYDE Murguia Lisa [id number] S Insurance:CHIQUI HERSHBERGERDOB: [facility] Number: [id number], [place] [id number] Repository 52856Vvf: (330) Date:2018-07-16 () 07/16/2018 Secondary NOT GIVENUNK Lisa Insurance:SELF PAY [facility] Number: Effective Repository Date:2018-07-16 03/04/2018 JAYDE Murguia Primary JAYDE Murguia [place] [id number] S Insurance:CHIQUI HERSHBERGERDOB: [facility] Number: [id number], [place] [id number] Repository 64744Obp: (330) Date:2018-03-04 () 03/04/2018 Secondary NOT GIVENUNK Lisa Insurance:SELF PAY [facility] Number: Effective Repository Date:2018-03-04 03/04/2018 JAYDE Murguia Primary NOT GIVENUNK Lisa [id number] S Insurance:SELF PAY [place] Number: Effective Repository 62902Rif: (330) Date:2018-03-04 () 01/22/2018 JAYDE Murguia Primary Insurance:[facility] JAYDE Gonzalez [id number] S PACKAGE PLANPolicy HERSHBERGERDOB: [facility] Number: [id number], [place] [id number] Repository 50967Tww: (330) Date:2018-01-14 () 01/22/2018 Secondary NOT GIVENUNK [place] Insurance:SELF PAY [facility] Number: Effective Repository Date:2018-01-14 01/22/2018 JAYDE Murguia Primary Insurance:[facility] JAYDE Murguia Lisa [id number] S PACKAGE PLANPolicy HERSHBERGERDOB: [facility] Number: [id number] [place], [place] [id number] Repository 85720Ybm: (330) Date:[phone] (HP) 01/22/2018 Secondary NOT GIVENUNK Lisa Insurance:SELF PAY [facility] Number: Effective Repository Date:2018-01-22 01/07/2018 JAYDE Murguia Primary NOT GIVENUNK [place] ANABELLA Insurance:SELF PAY Community Jr.[address] [place] Number: Effective Repository 727[address]Hfz: (330) Date:2018-01-21 (HP) 12/29/2017 JAYDE Murguia Primary Insurance:[facility] JAYDE Murguia [place] ANABELLA PACKAGE PLANPolicy ANABELLA Community Jr.[address] [facility] Number: Jr.: [place], [place] [id number] Repository 58957Yaa: (330) Date:2017-12-22 () 12/29/2017 Secondary NOT GIVENUNK Lisa Insurance:SELF PAY [facility] Number: Effective Repository Date:2017-12-22 12/29/2017 JAYDE Murguia Primary Insurance:[facility] JAYDE Murguia Lisa ANABELLA PACKAGE PLANPolicy ANABELLA Community Jr.[address] [place] Number: Jr.: [place], [place] [id number] Repository 81685Qpr: (330) Date:2017-12-22 () 12/29/2017 Secondary NOT GIVENUNK [place] Insurance:SELF PAY [facility] Number: Effective Repository Date:2017-12-29 12/24/2017 JAYDE Murguia Primary Insurance:[facility] JAYDE Murguia Lisa ANABELLA PACKAGE PLANPolicy ANABELLA Community Jr.[address] [place] Number: Effective Jr.: [place], [place] Date:2017-12-22 [id number] Repository 90639Wfu: () 12/24/2017 Secondary NOT GIVENUNK Lisa Insurance:SELF PAY [facility] Number: Effective Repository Date:2017-12-22 12/24/2017 JAYDE J Primary Insurance:[facility] JAYDE J [place] ANABELLA PACKAGE [facility] ANABELLA [facility] Jr.[address] [facility] Number: Effective Jr.: [place], [place] Date:2017-12-22 [id number] Repository 287[address]Kig: () 12/24/2017 Secondary NOT GIVENUNK Lisa Insurance:SELF PAY [facility] Number: Effective Repository Date:2017-12-24 12/22/2017 JAYDE Murguia Primary NOT GIVENUNK Lisa ANABELLA Insurance:SELF PAY [facility] Jr[address] [place], [place] Number: Effective Repository [address]Foa: (330) Date:2017-12-15 [phone] () 12/21/2017 JAYDE Primary NOT GIVENUNK Lisa [id number] Insurance:SELF PAY [facility], Number: Effective Repository [place] [address]Qzx: Date:2017-12-21 ()
== END 2018-07-16 11:44 | disposition home or self-care (01) ==
PROVIDERS: Emergency Provider Emergency Medicine; Family Provider Student in an Organized Health Care Education/Training Program; PCP Student in an Organized Health Care Education/Training Program
DX: I48.91 Unspecified atrial fibrillation (principal); Z95.2 Presence of prosthetic heart valve; Z79.01 Long term (current) use of anticoagulants; Z79.02 Long term (current) use of antithrombotics/antiplatelets; Z79.899 Other long term (current) drug therapy
CPT/HCPCS: 80048; 84484; 85025; 85610; 93005; 96374; 99284; J7030; A4216

== ENCOUNTER → 2018-07-30 14:02 | Outpatient (CLI) | payer OTHER, SELFPAY ==
[2018-07-16 10:23] VITALS: BMI 29.5
[2018-07-30 14:44] LABS: International Normalized Ratio 1.9; Prothrombin Time (Protime)PT. 22.1 SECONDS (11.7-14.9)
== END ==
PROVIDERS: Family Provider Student in an Organized Health Care Education/Training Program; PCP Student in an Organized Health Care Education/Training Program; Referring Provider Student in an Organized Health Care Education/Training Program; Visit Provider Student in an Organized Health Care Education/Training Program
DX: I48.2 Chronic atrial fibrillation (principal); Z79.01 Long term (current) use of anticoagulants
CPT/HCPCS: 85610

== ENCOUNTER → 2018-09-28 11:30 | Outpatient (CLI) | payer OTHER, SELFPAY ==
[2018-08-31 16:19] VITALS: BMI 30.1
[2018-09-28 13:06] LABS: AST(SGOT) 19 U/L (15-37); Alanine Aminotransfer ALT/SGPT 22 U/L (16-61); Albumin, Serum 3.6 g/dL (3.2-5.0); Alkaline Phosphatase 70 U/L (45-117); Bilirubin, Direct 0.24 mg/dL (0.00-0.30); Cholesterol 143 mg/dL (200); Globulin 4.6 g/dL (2.2-4.2); High Density Lipoprotein 37 mg/dL; Protein, Total 8.2 g/dL (6.4-8.2); Triglycerides 91 mg/dL; Very Low Density Lipoprotein 18 mg/dL (5-40)
[2018-09-28 14:21] LABS: PSA,Total - Annual Screen 0.19 ng/mL (0.00-4.00)
== END ==
PROVIDERS: Family Provider Student in an Organized Health Care Education/Training Program; PCP Student in an Organized Health Care Education/Training Program; Referring Provider Internal Medicine Cardiovascular Disease; Visit Provider Internal Medicine Cardiovascular Disease
DX: E11.65 Type 2 diabetes mellitus with hyperglycemia (principal); E78.5 Hyperlipidemia, unspecified; Z12.5 Encounter for screening for malignant neoplasm of prostate
CPT/HCPCS: 36415; 80061; 80076; 84153; G0103

== ENCOUNTER → 2018-12-02 | Outpatient (CLI) | payer OTHER, SELFPAY ==
[2018-08-31 16:19] VITALS: BMI 30.1
[2018-12-02 10:43] LABS: AST(SGOT) 22 U/L (15-37); Alanine Aminotransfer ALT/SGPT 22 U/L (16-61); Albumin, Serum 3.6 g/dL (3.2-5.0); Alkaline Phosphatase 83 U/L (45-117); Cholesterol 148 mg/dL (200); Globulin 4.6 g/dL (2.2-4.2); High Density Lipoprotein 35 mg/dL; Protein, Total 8.2 g/dL (6.4-8.2); Triglycerides 89 mg/dL; Very Low Density Lipoprotein 18 mg/dL (5-40)
== END | disposition home or self-care (01) ==
PROVIDERS: Family Provider Student in an Organized Health Care Education/Training Program; PCP Student in an Organized Health Care Education/Training Program; Referring Provider Internal Medicine Cardiovascular Disease; Visit Provider Internal Medicine Cardiovascular Disease
DX: E78.5 Hyperlipidemia, unspecified (principal)
CPT/HCPCS: 36415; 80061; 80076

== ENCOUNTER 2019-03-26 06:38 | Inpatient (IN) | payer OTHER, SELFPAY ==
[2019-03-03 14:50] VITALS: BMI 28.1
[2019-03-26] VITALS (27 sets, daily range): BP systolic 89–117; BP diastolic 58–81; PULSE 81–124; RESP 16–20; TEMP 17.8–37.2; O2SAT 92–100; BMI 31.4; BMI 29.7; BMI 29.8
--- NOTE | 2019-03-26 | IMM_PTH ---
PATIENT: JAYDE KYLE Jr. LOC: [facility] U#:[id number] AGE/SX: 69/M ROOM: [facility] RE03/26/[address]: Dr. Eduardo Jeronimo DO : 1950 BED: 1 DIS: 03/27/2019 SPEC #: [id number] RECD: 03/29/19 10:38 STATUS: FAISAL REQ #: [id number] MANDI: 03/26/19 00:[address]: Robles Pugh DEPT: IMMUNOHISTOCHEMISTRY RECD BY: Herberth Sanchez ENTERED: 03/29/19 10:39 SP TYPE: IMMUNO OTHR DR: DO Dr. Eduardo Poon DO Dr. Richard Guttman, MD Tissues: Gastric mucous membrane Procedures: H Pylori (initial) Comments: @ Ordering doctor for H.PYLORI edited from to DR.RGUTTM Tobin by NISH at 03/29/19 1246 @ Submitting doctor edited from to DR.RGUTTM Tobin by NISH at 03/29/19 1246 PHYSICIAN & INSTITUTION [place] [id number] SPECIMEN INFORMATION: Tissue Source: Antrum biopsy Clinical Info: GI bleed Specimen Number: [id number] CPT code: 03011 METHODOLOGY: Deparaffinized sections of prefer/formalin-fixed tissue or PAP/DQ stained slides are incubated with monoclonal/polyclonal antibodies/oligonucleotide probes. Localization is made via biotin free immunoperoxidase method. Appropriate controls are performed and reacted as expected. Results on target cell population are indicated in the following table: RESULTS: ANTIBODY / CLONE RESULT H Pylori (polyclonal) negative These tests were developed and their performance characteristics determined by [facility]. They may not have been cleared or approved by the U.S. Food and Drug Administration. The FDA has determined that such clearance or approval is not necessary. INTERPRETATION: Antrum, biopsy: Negative for Helicobacter pylori organisms. SJ:jerri 03/31/19
[2019-03-26] MEDS: 0.9% Normal Saline 1,000 ML 1000 ML IV (06:40)
--- NOTE | 2019-03-26 06:47 | EKG12_ITS ---
Test Reason : Blood Pressure : / mmHG Vent. Rate : 096 BPM Atrial Rate : 079 BPM P-R Int : 000 ms QRS Dur : 092 ms QT Int : 378 ms P-R-T Axes : 000 031 059 degrees QTc Int : 477 ms Atrial fibrillation Low voltage QRS Nonspecific T wave abnormality Prolonged QT Abnormal ECG Confirmed by PINKY CUMMINS, MARICEL ([id number]), online content editor SHIVA HOPPER ([id number]) on 03/28/2019 11:30:20 AM Referred By: Robles Pugh Confirmed By:MARICEL VANCE MD
--- NOTE | 2019-03-26 06:48 | ED.DCSUM_ITS ---
History of Present Illness Chief Complaint: GI Bleed Detail of Chief Complaint: Vomiting Informant: Patient, Significant Other Onset: Today Current Severity: Moderate Maximum Severity: Moderate Narrative: Patient states that he woke up around 445 this morning not feeling well. He went to the bathroom had a bowel movement. He then went to lay on the couch and started to have nausea with a small amount of vomiting. He brought up phlegm with some blood in it. He states he just overall does not feel well. His stomach feels unsettled. states he was complaining of an upset stomach las t night she fixed him some vinegar water to help with this. He has not had fever or chills. Patient has a history of lower esophagus or stomach cancer treated with chemotherapy and radiation in 2013. He does have a history of A. fib and is on full-strength aspirin, but no other anticoagulants. Past Medical History - Allergies and Home Meds Allergies/Adverse Reactions: Allergies No Known Allergies Allergy (Verified 03/03/19 14:56) Primary Care Physician: Macho Solorio DO [Primary Care Provider] - Prior records reviewed: Yes Past Medical History: - - Reviewed Surgical History: - - Aortic valve replacement Lives: Spouse/ Significant Other Smoking Status: Current every day smoker Review of Systems General: Denies: Chills, Fever Eyes: Denies: Visual changes - bilaterally ENT: Denies: Bilateral ear pain Cardiovascular: Denies: Chest pain Respiratory: Denies: Dyspnea Gastrointestinal: Reports: Abdominal pain, Nausea, Vomiting. Denies: Diarrhea, Hematochezia Musculoskeletal: Denies: Back pain Skin: Denies: Wounds Neurological: Reports: Weakness - Generalized weakness. Denies: Headache Hematologic: Denies: Easy bruising, Easy bleeding Allergy: Denies: Uticaria Physical Exam Vital Signs/Narrative: Vital Signs Temp Pulse Resp BP Pulse Ox 03/26/19 06:47 95/66 03/26/19 06:39 97.9 F 110 H 16 97/71 98 Inital Vital Signs reviewed: Yes General: Well nourished, Well developed Head: Normocephalic ENT: Moist mucous membranes Cardiovascular: Irregular, Tachycardia Respiratory: No distress, CTA bilaterally Abdomen: Soft, Tender - Mild epigastric tenderness. No palpable mass., Hypoactive bowel sounds. Negative for: Guarding, Rebound tenderness Skin: Pallor Neurological: Alert, Oriented x3 Psychological: Normal affect Diagnostic/Tx/Re-eval - Medical Decision Making Patient has been ordered IV fluid and Zofran along with laboratory evaluation and type and screen. This will be signed out to oncoming physician. ED Disposition - Plan for ED Patient: Referrals: Macho Solorio DO [Primary Care Provider] -
[2019-03-26] MEDS: Ondansetron 4 MG/2 ML Vial IV (06:54)
[2019-03-26 06:56] LABS: Absolute Lymphocyte Count 1.31 X10^3/uL (0.83-4.51); Absolute Neutrophil Count 7.2 X10^3/uL (2.0-7.7); Basophil# 0.05 X10^3/uL; Basophil% 0.5 % (0-1); Eosinophil# 0.23 X10^3/uL; Eosinophils% 2.4 % (0-5); Hematocrit 26.7 % (40-54); Hemoglobin 8.7 g/dL (13.0-16.5); Lymphocyte # 1.31 X10^3/ul (4.0); Lymphocyte % 13.7 % (19-41); Mean Corp Hgb Conc 32.6 g/dL (32-36); Mean Corpuscular Hgb 31.9 pg (27.0-32.0); Mean Corpuscular Volume 97.8 fL (80-94); Mean Platelet Vol. 11.7 fl (6.2-12.0); Monocyte# 0.68 X10^3/uL; Monocyte% 7.1 % (0-10); NRBC Flagged by Analyzer 0 % (0-5); Neutrophil # 7.23 X10^3/uL (2.7-7.7); Neutrophil % 75.5 % (47-70); Platelet Count 218 K/mm3 (150-450); RBC Distribution Width CV 14.8 % (11.6-14.6); RBC Distribution Width SD 53.1 fl (35.1-43.9); Red Blood Count 2.73 M/mm3 (4.6-6.2); White Blood Count 9.6 K/mm3 (4.4-11.0)
[2019-03-26] MEDS: 0.9% Normal Saline 1,000 ML 150 ML IV ×2 (06:57→10:39)
--- NOTE | 2019-03-26 07:01 | ED.RN ---
FIRST LITER BOLUS OF NORMAL SALINE WAS STARTED BY EMS PRIOR TO ARRIVAL.
[2019-03-26 07:03] LABS: International Normalized Ratio 1.4; Prothrombin Time (Protime)PT. 17.2 SECONDS (11.7-14.9)
[2019-03-26 07:04] LABS: Partial Thromboplast Time 26.7 Seconds (24.1-36.2)
[2019-03-26 07:14] LABS: AST(SGOT) 11 U/L (15-37); Alanine Aminotransfer ALT/SGPT 15 U/L (16-61); Albumin, Serum 2.4 g/dL (3.2-5.0); Alkaline Phosphatase 62 U/L (45-117); Anion Gap 4 (5-15); BUN 44 mg/dL (7-18); BUN/Creat Ratio 51.8 RATIO (10-20); Bilirubin, Direct 0.18 mg/dL (0.00-0.30); Calcium,Total 7.9 mg/dL (8.5-10.1); Chloride 107 mmol/L (98-107); Creatinine, Serum 0.85 mg/dL (0.70-1.30); EST Glomerular Filtration Rate 95 mL/min (>60); Est Glom Filt Rate - Afr Amer 115 mL/min (>60); Estimated Creatinine Clearance 82.02 ml/min; Globulin 3.7 g/dL (2.2-4.2); Glucose 190 mg/dL (74-106); Lipase 38 U/L (73-393); Potassium 4.9 mmol/L (3.5-5.1); Protein, Total 6.1 g/dL (6.4-8.2); Sodium Level 142 mmol/L (136-145)
--- NOTE | 2019-03-26 07:16 | RAD_ITS ---
STUDY: X-RAY CHEST REASON FOR EXAM: Male, 69 years old. Dizziness vomiting blood TECHNIQUE: Single AP portable view of the chest. COMPARISON: None. FINDINGS: Elevation of the left hemidiaphragm. There is vague demonstration of metallic density overlying the midline chest. There is no demonstrated pleural abnormality. There is moderate cardiomegaly. Normal mediastinum and ines. Normal visualized pulmonary arteries. There is atherosclerotic calcification of the aortic arch with tortuosity. Normal visualized thoracic spine. Normal visualized ribs, clavicles, and shoulders. There is no demonstrated abnormality of the visualized soft tissue structures of the upper abdomen. RAD/Chest 1 View (Portable) IMPRESSION: Cardiomegaly. No visualized focal infiltrate. Electronically Signed: Annie Sloan MD at 9:21 EDT Tel , Service support ,
[2019-03-26 07:23] LABS: Lactic Acid 1.8 mmol/L (0.4-2.0)
--- NOTE | 2019-03-26 08:25 | NURSING ---
DR PIZANO IN ER
--- NOTE | 2019-03-26 08:50 | NURSING ---
PCU ACUTE ANEMIA HARINDER
[2019-03-26] MEDS: 0.9% Normal Saline 1,000 ML 500 ML IV (08:57)
--- NOTE | 2019-03-26 09:16 | NURSING ---
DR BECKFORD IN ROOM
--- NOTE | 2019-03-26 09:29 | PCM.CONS.GEN ---
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 He was in his usual state of health yesterday. He denied recent obvious melena and had no loss of appetite yesterday. He awoke this morning with a sensation that his stomach was empty. He then noted he vomited approximately 2 cups full of blood. He felt dizzy. He had a normal bowel movement and returned to bed. His called EMS. He was given 1 L of IV fluids and transported to [facility] ER. He was found to be tachycardic and hypotensive. He was given an addition liter bolus. He is somewhat somnolent. Hgb returned as 8.7. elevated BUN and Cr. He has a history of A fib and aortic stenosis. He had a watchman procedure and TAVR last July. He was initially on Plavix, which has been stopped and now he only takes a 325mg Aspirin. He underwent upper endoscopy by Dr. 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 Thierno Ramesh, Dr. 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) E11.40 Obstructive sleep apnea (Chronic) G47.33 Patent foramen ovale (Chronic) Q21.1 Present on echo post TAVR procedure, [facility] Chronic atrial fibrillation (Chronic) I48.2 Chronic diastolic (congestive) heart failure (Chronic) I50.32 Hyperlipidemia (Chronic) E78.5 Non-rheumatic aortic stenosis (Chronic) I35.0 Nicotine dependence (Chronic) F17.200 Obesity (Chronic) E66.9 Esophageal cancer Onset Date: ~2012 C15.9 Phimosis N47.1 Allergies No Known Allergies Allergy (Verified 03/03/19 14:56) Home Medications: Ambulatory Orders Medication Instructions Recorded metformin 500 mg tablet 500 mg PO BID 08/06/18 diltiazem CD 180 mg 180 mg PO DAILY #30 cap 08/17/18 capsule,extended release 24 hr furosemide 40 mg tablet 40 mg PO Q OTHER DAY #15 tab 02/07/19 aspirin 325 mg tablet 325 mg PO .COMPLEX tab 03/03/19 Surgical History: Surgical History (Last Reviewed 03/02/19 @ 11:08 by Pema Dean) History of left heart catheterization (Chronic) Onset Date: 12/29/17 Z98.890 Presence of Watchman left atrial appendage closure device (Chronic) Onset Date: 07/13/18 Z95.818 S/P TAVR (transcatheter aortic valve replacement) (Chronic) Onset Date: 07/13/18 Z95.2 29mm 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 Thierno Ramesh, Dr. Santo Dobbins @ [facility] History of appendectomy Z90.49 History of umbilical hernia repair Z98.890, Z87.19 Surgical History: - - Aortic valve replacement Lives: Spouse/ Significant Other Smoking Status: Current every day smoker Review of Systems Constitutional: Reports: Malaise, Fatigue. Denies: Chills, Fever, Weight Change HEENT: Denies: Head Aches, Sinus Congestion, Sinus Drainage Cardiovascular: Denies: Chest Pain, Palpitations Respiratory: Denies: Cough, Shortness of breath at rest, Sputum production Gastrointestinal: Reports: Hematemesis. Denies: Abdominal Pain, Nausea, Vomiting Genitourinary: Denies: Dysuria Musculoskeletal: Denies: Joint Pain, Joint Tenderness Skin: Denies: Rash, Wounds Neurological: Denies: Numbness, Tingling, Focal weakness Psychiatric: Denies: Anxiety, Depression, Homicidal Ideations, Suicidal Ideations Hematologic/ Lymphatic: Denies: Easy Bruising, Easy Bleeding - Physical Exam General: Alert, Oriented x3, - - slightly somonlent Lungs: Clear to auscultation, Normal air movement Cardiovascular: Regular rate, Regular Rhythm, No murmurs Abdomen: Bowel Sounds Present, Soft, Non Tender Vital Signs Temp Pulse Resp BP Pulse Ox 97.7 F L 100 16 96/68 97 03/26/19 09:18 03/26/19 09:18 03/26/19 09:18 03/26/19 09:18 03/26/19 09:18 Oxygen Delivery Method Room Air Weight: 96.4 kg Body Mass Index (BMI) 31.4 Intake and Output for Last 24 Hours 03/24/19 03/25/19 03/26/19 23:59 23:59 23:59 Intake Total 0 / 1900 Balance 190 / 1899 Laboratory Tests Past 24 Hrs 03/26/19 03/26/19 03/26/19 06:45 06:45 06:45 WBC 9.6 RBC 2.73 L Hgb 8.7 L Hct 26.7 L MCV 97.8 H MCH 31.9 MCHC 32.6 RDW Std Deviation 53.1 H RDW Coeff of Rachell 14.8 H Plt Count 218 MPV 11.7 Immature Gran % (Auto) 0.800 Neut % (Auto) 75.5 H Lymph % (Auto) 13.7 L Noble % (Auto) 7.1 Eos % (Auto) 2.4 Baso % (Auto) 0.5 Absolute Neuts (auto) 7.2 Absolute Lymphs (auto) 1.31 Nucleated RBC % 0 PT 17.2 H INR 1.4 APTT 26.7 Sodium 142 Potassium 4.9 Chloride 107 Carbon Dioxide 31.0 Anion Gap 4 L BUN 44 H Creatinine 0.85 Estim Creat Clear Calc 82.02 Est GFR (MDRD) Af Amer 115 Est GFR (MDRD) Non-Af 95 BUN/Creatinine Ratio 51.8 H Glucose 190 H Lactic Acid Calcium 7.9 L Total Bilirubin 0.50 Direct Bilirubin 0.18 AST 11 L ALT 15 L Alkaline Phosphatase 62 Troponin I 0.024 Total Protein 6.1 L Albumin 2.4 L Globulin 3.7 Lipase 38 L Blood Type Antibody Screen Crossmatch 03/26/19 03/26/19 03/26/19 06:45 06:45 06:55 WBC RBC Hgb Hct MCV MCH MCHC RDW Std Deviation RDW Coeff of Rachell Plt Count MPV Immature Gran % (Auto) Neut % (Auto) Lymph % (Auto) Noble % (Auto) Eos % (Auto) Baso % (Auto) Absolute Neuts (auto) Absolute Lymphs (auto) Nucleated RBC % PT INR APTT Sodium Potassium Chloride Carbon Dioxide Anion Gap BUN Creatinine Estim Creat Clear Calc Est GFR (MDRD) Af Amer Est GFR (MDRD) Non-Af BUN/Creatinine Ratio Glucose Lactic Acid 1.8 Calcium Total Bilirubin Direct Bilirubin AST ALT Alkaline Phosphatase Troponin I Total Protein Albumin Globulin Lipase Blood Type A NEGATIVE Antibody Screen NEGATIVE Crossmatch See Detail Assessment/Plan All Active Problems (Last Reviewed 03/02/19 @ 11:08 by Pema Dean) History of esophageal cancer (Acute) Edema (Acute) Dyspnea (Acute) Orthopnea (Acute) Hematemesis, history of GE junction cancer I plan to perform emergent EGD with possible control of bleeding. the patient understands the risks, benefits, alternatives and possible complications and consents to the said procedure. upper endoscopy demonstrated clots without signs of active bleeding in the stomach likely felt to be the proximal stomach. This is felt mostly would be consistent with aspirin related gastritis. The distal esophagus was slightly narrowed but did not have signs of active bleeding varices or recurrence of malignancy. The patient was started on IV Protonix. We'll maintain him nothing by mouth except for a few ice chips and plan for repeat endoscopy tomorrow morning.
[2019-03-26 10:16] LABS: Bedside Glucose 166 mg/dL (70-110)
--- NOTE | 2019-03-26 10:20 | EGD_PTH ---
PATIENT: JAYDE KYLE Jr. LOC: [facility] U#:[id number] AGE/SX: 69/M ROOM: [facility] RE03/26/[address]: Dr. Eduardo Jeronimo DO : 1950 BED: 1 DIS: 03/27/2019 SPEC #: [id number] RECD: 03/27/19 08:11 STATUS: FAISAL [place] #: [id number] MANDI: 03/26/19 10:[address]: Robles Pugh DEPT: SURGICAL PATHOLOGY RECD BY: Ashu Sultana ENTERED: 03/28/19 13:09 JENNIFER TYPE: EGD BIOPSY DESTINEE DR: DO Dr. Eduardo Poon DO Tissues: Gastric mucous membrane Procedures: Surgery Specimen Level IV HEADER OPERATION: EGD ([facility] [place]) PRE-OP DIAGNOSIS: GI bleed TISSUE SUBMITTED: Antrum biopsy MICROSCOPIC DIAGNOSIS Antrum, biopsy: Mild gastritis. SJ:jennifer 03/29/19 COMMENT The results of immunohistochemistry for Helicobacter pylori will be reported separately ([id number]). Focal intestinal metaplasia is noted AB/PAS stain with matched control is used in the evaluation of the specimen MICROSCOPIC DESCRIPTION Slides are reviewed. The specimen shows fragments of gastric mucosa with chronic inflammatory cell infiltrates in the lamina propria consisting of lymphocytes and plasma cells, consistent with mild chronic gastritis GROSS DESCRIPTION Received is one container labeled with the patient name and designated antrum biopsy. The specimen consists of two irregular fragments of light nichols soft tissue that measure in aggregate 0.5 x 0.2 x 0.1 cm. The specimen is totally submitted in one cassette. /AZALIA:jennifer 03/28/19 TC: 3 [facility]: [id number]
--- NOTE | 2019-03-26 10:32 | OP.ENDO_ITS ---
03/26/2019 Macho Solorio [address] [id number] Re : Upper GI endoscopy procedure for Bryan Salamanca Dear Dr. Solorio This procedure was performed on Tuesday, March 26, 2019. My impressions and recommendations are as follows: Impressions : - Clotted blood in the entire stomach. - Non-severe esophagitis. - No specimens collected. Recommendations : - Admit the patient to hospital [facility] for ongoing care. - Give Protonix (pantoprazole): initiate therapy with 80 mg IV bolus, then 8 mg/hr IV by continuous infusion. - Continue present medications. - No aspirin, ibuprofen, naproxen, or other non-steroidal anti-inflammatory drugs. My findings are described in the full procedure note, which is enclosed. If I can be of further assistance, please feel free to contact me at Doctor phone number(s): , Work: . Sincerely, Robles Pugh MD 03/26/2019 10:31:56 AM This report has been signed electronically.
[2019-03-26 10:38] LABS: Hematocrit 25.2 % (40-54); Hemoglobin 8.1 g/dL (13.0-16.5)
[2019-03-26] MEDS: 0.9% Normal Saline 1,000 ML 75 ML IV (12:27)
[2019-03-26 12:41] LABS: Bedside Glucose 149 mg/dL (70-110)
[2019-03-26 17:40] LABS: Bedside Glucose 120 mg/dL (70-110)
--- NOTE | 2019-03-26 19:00 | HP.PCM_ITS ---
Problem List (1) Hematemesis Status: Acute Qualifiers: Nausea presence: with nausea Qualified Code(s): K92.0 - Hematemesis History of Present Illness Date of Admission: 03/26/19 Chief Complaint: Hematemesis The patient is a 69 year old M who was seen in the emergency room at [facility] today after coming in for evaluation of an episode of hematemesis that occurred this morning. Patient felt nauseated and had an episode of hematemesis, he denied any chest pain or shortness of breath. She has a history of esophageal cancer which was treated in 2012 with radiation and chemotherapy, his last checkups have shown no recurrence of the cancer. His last upper endoscopy was in 2016. Patient had a TAVR procedure done in June 2018, at that time he also had a watchman procedure performed. Patient states that his it support consultant recently changed his medication to a full adult aspirin per day, he does not take any Plavix, systemic anticoagulants, and he does not use nonsteroidal anti-inflammatory medications at home. Patient also does not take any PPI drugs or H2 blockers. Patient denies any rectal bleeding, he denies any melanotic stools. Work-up in the emergency room included labs which showed his hemoglobin to be 8.7, patient's last hemoglobin charted at this hospital was in July 2018 at 14.3. Lab chemistry showed his glucose to be 190 and BUN was 44. Patient's systolic blood pressure in the emergency room was in the 90s, he was given fluids by the squad this morning on the way into the hospital and another liter of fluid in the emergency room before this examiner saw the patient. I contacted general surgery and discussed the case with general surgery, they agreed to have the patient undergo an endoscopy this morning-patient was taken for an EGD from the emergency room, it was noted that there were multiple blood clots in the stomach and visualization was difficult, there was no active large amount of hemorrhaging noted to be present. It was felt that the EGD should be repeated on 03/27/2019, patient was then transferred to PCU for admission and further treatment. Patient will be kept on a PPI and H&H will be monitored, he will have a blood transfusion if necessary. 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 Thierno Ramesh, Dr. 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) E11.40 Obstructive sleep apnea (Chronic) G47.33 Patent foramen ovale (Chronic) Q21.1 Present on echo post TAVR procedure, [facility] Chronic atrial fibrillation (Chronic) I48.2 Chronic diastolic (congestive) heart failure (Chronic) I50.32 Hyperlipidemia (Chronic) E78.5 Non-rheumatic aortic stenosis (Chronic) I35.0 Nicotine dependence (Chronic) F17.200 Obesity (Chronic) E66.9 Esophageal cancer Onset Date: ~2012 C15.9 Phimosis N47.1 Allergies No Known Allergies Allergy (Verified 03/03/19 14:56) Home Medications: Ambulatory Orders Medication Instructions Recorded metformin 500 mg tablet 500 mg PO BID 08/06/18 diltiazem CD 180 mg 180 mg PO DAILY #30 cap 08/17/18 capsule,extended release 24 hr furosemide 40 mg tablet 40 mg PO Q OTHER DAY #15 tab 02/07/19 aspirin 325 mg tablet 325 mg PO DAILY tab 03/03/19 Surgical History: Surgical History (Last Reviewed 03/02/19 @ 11:08 by Pema Dean) History of left heart catheterization (Chronic) Onset Date: 12/29/17 Z98.890 Presence of Watchman left atrial appendage closure device (Chronic) Onset Date: 07/13/18 Z95.818 S/P TAVR (transcatheter aortic valve replacement) (Chronic) Onset Date: 07/13/18 Z95.2 29mm Krista S3 valve, 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 Thierno Ramesh, Dr. Santo Dobbins @ [facility] History of appendectomy Z90.49 History of umbilical hernia repair Z98.890, Z87.19 Surgical History: appendectomy, - - Aortic valve replacement via TAVR, insertion of watchman Psychiatric History: No pertinent psych hx Lives: Spouse/ Significant Other Smoking Status: Current some day smoker Tobacco Use: Cigarettes Alcohol: None Drugs: None - *Family History Maternal Family History: Family History (Last Reviewed 03/02/19 @ 11:08 by Pema Dean) Mother CVA (cerebral vascular accident) Father CVA (cerebral vascular accident) Sister Diabetes Brother Heart disease History Items: Stroke Paternal Family History: Family History (Last Reviewed 03/02/19 @ 11:08 by Pema Dean) Mother CVA (cerebral vascular accident) Father CVA (cerebral vascular accident) Sister Diabetes Brother Heart disease History Items: Stroke Review of Systems Constitutional: Reports: Malaise, Fatigue. Denies: Anorexia, Chills, Fever, Night Sweats, Weakness, Weight Change Eyes: Denies: Blurred vision, Cataracts, Conjunctivae Inflammation, Double vision, Drainage HEENT: Denies: Difficulty Swallowing, Dysphasia, Ear Pain, Eye Pain, Hearing Changes, Nasal bleeding, Nasal Congestion, Post Nasal Drip Cardiovascular: Denies: Chest Pain, Claudication, Chest Pressure, Chest Tightness, Edema, Heaviness, Palpitations Respiratory: Denies: Cough, Hemoptysis, Pleuritic Pain, Shortness of Breath, Shortness of breath at rest, Shortness of breath upon exertion Gastrointestinal: Reports: Hematemesis, Nausea, Vomiting. Denies: Abdominal Pain, Constipation, Diarrhea, Hematochezia, Melena Genitourinary: Denies: Dysuria, Frequency, Hematuria, Hesitancy, Urgency Musculoskeletal: Denies: Back Pain, Foot Pain, Hand Pain, Joint Pain, Joint stiffness, Joint swelling, Joint Tenderness, Leg Pain Skin: Denies: Dryness, Jaundice, Pruritis, Rash Neurological: Denies: Balance problems, Blurred vision, Double vision, Slurred speech, Difficulty swallowing, Focal weakness, Numbness, Tingling Psychiatric: Denies: Anxiety, Depression, Homicidal Ideations, Suicidal Ideations Endocrine: Denies: Change in Body Habitus, Heat/ Cold Intolerance, Polydipsia, Polyuria Hematologic/ Lymphatic: Denies: Adenopathy, Anemia, Easy Bruising, Easy Bleeding, Petechiae, Purpura VTE Information - Inpt Only VTE Present on Admission: No VTE Mechan Device Prophylaxis: SCD's VTE Pharm Prophylaxis ordered?: No Reason prophylaxis not ordered:: Medical Contraindication - Upper GI bleed Patient Problems: Active and Suspected Problems (Last Reviewed 03/02/19 @ 11:08 by Pema Dean) Hematemesis (Acute) - Physical Exam General: Alert, Oriented x3, Cooperative, No apparent distress, Well developed, Well nourished HEENT: Atraumatic, PERRLA, EOMI, Normocephalic Oral: Moist Mucosa Neck: Supple, Trachea Midline, Thyroid Normal Size and Texture Lungs: Clear to auscultation, Normal air movement, No rhonchi, No wheeze, No rales Cardiovascular: No murmurs, PMI Normal, Irregular Rate, No rub noted Abdomen: Bowel Sounds Present, Soft, Non Tender, Non-Distended Extremities: No clubbing, No cyanosis, No edema, Capillary Refill Less than 3 Seconds Skin: No rashes, No breakdown Musculoskeletal: No Tenderness to Palpation of Joints or Extremities Neurological: Cranial nerves II-XII grossly intact, Neuro grossly intact, Sensory exam intact to light touch and pain, Coordination normal Psych/Mental Status: Normal Affect, Appropriate, Alert and oriented to time, place, person, mood and affect Vital Signs Temp Pulse Resp BP Pulse Ox 98.1 F 113 H 20 H 92/63 97 03/26/19 18:00 03/26/19 18:00 03/26/19 18:00 03/26/19 18:00 03/26/19 18:00 Oxygen Delivery Method Room Air Weight: 91.5 kg Body Mass Index (BMI) 29.7 Intake and Output for Last 24 Hours 03/24/19 03/25/19 03/26/19 23:59 23:59 23:59 Intake Total 4552.00 / 4552.00 Balance 4552.00 / 4552.00 Laboratory Tests Past 24 Hrs 08/24/19 08/24/19 08/24/19 06:45 06:45 06:45 WBC 9.6 RBC 2.73 L Hgb 8.7 L Hct 26.7 L MCV 97.8 H MCH 31.9 MCHC 32.6 RDW Std Deviation 53.1 H RDW Coeff of Rachell 14.8 H Plt Count 218 MPV 11.7 Immature Gran % (Auto) 0.800 Neut % (Auto) 75.5 H Lymph % (Auto) 13.7 L Lyman % (Auto) 7.1 Eos % (Auto) 2.4 Baso % (Auto) 0.5 Absolute Neuts (auto) 7.2 Absolute Lymphs (auto) 1.31 Nucleated RBC % 0 PT 17.2 H INR 1.4 APTT 26.7 Sodium 142 Potassium 4.9 Chloride 107 Carbon Dioxide 31.0 Anion Gap 4 L BUN 44 H Creatinine 0.85 Estim Creat Clear Calc 82.02 Est GFR (MDRD) Af Amer 115 Est GFR (MDRD) Non-Af 95 BUN/Creatinine Ratio 51.8 H Glucose 190 H Lactic Acid Calcium 7.9 L Total Bilirubin 0.50 Direct Bilirubin 0.18 AST 11 L ALT 15 L Alkaline Phosphatase 62 Troponin I 0.024 Total Protein 6.1 L Albumin 2.4 L Globulin 3.7 Lipase 38 L Blood Type Antibody Screen Crossmatch 03/26/19 03/26/19 03/26/19 06:45 06:45 06:55 WBC RBC Hgb Hct MCV MCH MCHC RDW Std Deviation RDW Coeff of Rachell Plt Count MPV Immature Gran % (Auto) Neut % (Auto) Lymph % (Auto) Lyman % (Auto) Eos % (Auto) Baso % (Auto) Absolute Neuts (auto) Absolute Lymphs (auto) Nucleated RBC % PT INR APTT Sodium Potassium Chloride Carbon Dioxide Anion Gap BUN Creatinine Estim Creat Clear Calc Est GFR (MDRD) Af Amer Est GFR (MDRD) Non-Af BUN/Creatinine Ratio Glucose Lactic Acid 1.8 Calcium Total Bilirubin Direct Bilirubin AST ALT Alkaline Phosphatase Troponin I Total Protein Albumin Globulin Lipase Blood Type A NEGATIVE Antibody Screen NEGATIVE Crossmatch See Detail 03/26/19 10:34 WBC RBC Hgb 8.1 L Hct 25.2 L MCV MCH MCHC RDW Std Deviation RDW Coeff of Rachell Plt Count MPV Immature Gran % (Auto) Neut % (Auto) Lymph % (Auto) Lyman % (Auto) Eos % (Auto) Baso % (Auto) Absolute Neuts (auto) Absolute Lymphs (auto) Nucleated RBC % PT INR APTT Sodium Potassium Chloride Carbon Dioxide Anion Gap BUN Creatinine Estim Creat Clear Calc Est GFR (MDRD) Af Amer Est GFR (MDRD) Non-Af BUN/Creatinine Ratio Glucose Lactic Acid Calcium Total Bilirubin Direct Bilirubin AST ALT Alkaline Phosphatase Troponin I Total Protein Albumin Globulin Lipase Blood Type Antibody Screen Crossmatch POC Glucose 03/26/19 03/26/19 03/26/19 17:36 12:04 10:07 POC Glucose 120 H 149 H 166 H Assessment/Plan All Active Problems (Last Reviewed 03/02/19 @ 11:08 by Pema Dean) Hematemesis (Acute) History of esophageal cancer (Acute) Edema (Acute) Dyspnea (Acute) Orthopnea (Acute) #1 acute upper GI bleed-exact etiology unclear at this point, again patient was admitted to the PCU, he will undergo repeat EGD tomorrow, labs will be monitored, patient will be kept on IV PPI and he will be n.p.o. #2 chronic atrial fibrillation-not currently on any anticoagulation, status post Watchman insertion June 2018 #3 type 2 diabetes-monitor blood sugars #4 acute blood loss anemia from upper GI bleed requiring transfusion-patient's H&H will be monitored, he will be given blood transfusion as needed #5 past history of esophageal cancer-in remission Code Visit Inpatient E&M: 61354 Init Hosp L3
[2019-03-26 23:36] LABS: Bedside Glucose 130 mg/dL (70-110)
[2019-03-27] VITALS (13 sets, daily range): BP systolic 90–127; BP diastolic 50–82; PULSE 94–121; RESP 16–18; TEMP 36.1–36.7; O2SAT 92–99
[2019-03-27] MEDS: 0.9% Normal Saline 1,000 ML 75 ML IV ×2 (01:41→09:31)
[2019-03-27 02:52] LABS: Hematocrit 32.8 % (40-54); Hemoglobin 10.6 g/dL (13.0-16.5)
[2019-03-27 05:11] LABS: Hemoglobin 10.5 g/dL (13.0-16.5)
--- NOTE | 2019-03-27 06:25 | OP.ENDO_ITS ---
03/27/2019 Macho Solorio [address] [id number] Re : Upper GI endoscopy procedure for Bryan Salamanca Dear Dr. Solorio This procedure was performed on Wednesday, March 27, 2019. My impressions and recommendations are as follows: Impressions : - Normal examined jejunum. - Normal examined duodenum. - Gastritis. Biopsied. - Non-bleeding gastric ulcer with a clean ulcer base (Jann Class III). - Benign-appearing esophageal stenosis. - Non-severe esophagitis. - Normal middle third of esophagus. Recommendations : - Use sucralfate suspension 1 gram PO QID. - Continue present medications. My findings are described in the full procedure note, which is enclosed. If I can be of further assistance, please feel free to contact me at Doctor phone number(s): , Work: . Sincerely, Robles Pugh MD 03/27/2019 6:25:30 AM This report has been signed electronically.
--- NOTE | 2019-03-27 06:27 | PCM.PN.SRG ---
Patient Problems: Active and Suspected Problems (Last Reviewed 03/02/19 @ 11:08 by Pema Dean) Hematemesis (Acute) Subjective: no complaints - Physical Exam General: Alert, Oriented x3 Lungs: Clear to auscultation, Normal air movement Cardiovascular: Tachycardic Abdomen: Bowel Sounds Present, Soft, Non Tender Vital Signs Temp Pulse Resp BP Pulse Ox 97.8 F 114 H 18 120/73 94 03/27/19 05:25 03/27/19 05:25 03/27/19 05:25 03/27/19 05:25 03/27/19 05:25 Oxygen Delivery Method Room Air Weight: 91.5 kg Body Mass Index (BMI) 29.7 Intake and Output for Last 24 Hours 03/25/19 03/26/19 03/27/19 23:59 23:59 23:59 Intake Total 5062.00 / 6023.00 2630 / 2630 Output Total 2 / 2 Balance 5062.00 / 6022.00 2628 / 2628 Laboratory Tests Past 24 Hrs 03/26/19 03/26/19 03/26/19 06:45 06:45 06:45 WBC 9.6 RBC 2.73 L Hgb 8.7 L Hct 26.7 L MCV 97.8 H MCH 31.9 MCHC 32.6 RDW Std Deviation 53.1 H RDW Coeff of Rachell 14.8 H Plt Count 218 MPV 11.7 Immature Gran % (Auto) 0.800 Neut % (Auto) 75.5 H Lymph % (Auto) 13.7 L Stephens % (Auto) 7.1 Eos % (Auto) 2.4 Baso % (Auto) 0.5 Absolute Neuts (auto) 7.2 Absolute Lymphs (auto) 1.31 Nucleated RBC % 0 PT 17.2 H INR 1.4 APTT 26.7 Sodium 142 Potassium 4.9 Chloride 107 Carbon Dioxide 31.0 Anion Gap 4 L BUN 44 H Creatinine 0.85 Estim Creat Clear Calc 82.02 Est GFR (MDRD) Af Amer 115 Est GFR (MDRD) Non-Af 95 BUN/Creatinine Ratio 51.8 H Glucose 190 H Lactic Acid Calcium 7.9 L Total Bilirubin 0.50 Direct Bilirubin 0.18 AST 11 L ALT 15 L Alkaline Phosphatase 62 Troponin I 0.024 Total Protein 6.1 L Albumin 2.4 L Globulin 3.7 Lipase 38 L Blood Type Antibody Screen Crossmatch 03/26/19 03/26/19 03/26/19 06:45 06:45 06:45 WBC RBC Hgb Hct MCV MCH MCHC RDW Std Deviation RDW Coeff of Rachell Plt Count MPV Immature Gran % (Auto) Neut % (Auto) Lymph % (Auto) Stephens % (Auto) Eos % (Auto) Baso % (Auto) Absolute Neuts (auto) Absolute Lymphs (auto) Nucleated RBC % PT INR APTT Sodium Potassium Chloride Carbon Dioxide Anion Gap BUN Creatinine Estim Creat Clear Calc Est GFR (MDRD) Af Amer Est GFR (MDRD) Non-Af BUN/Creatinine Ratio Glucose Lactic Acid Calcium Total Bilirubin Direct Bilirubin AST ALT Alkaline Phosphatase Troponin I Total Protein Albumin Globulin Lipase Blood Type A NEGATIVE Antibody Screen NEGATIVE Crossmatch See Detail See Detail 03/26/19 03/26/19 03/27/19 06:55 10:34 02:40 WBC RBC Hgb 8.1 L 10.6 L Hct 25.2 L 32.8 L MCV MCH MCHC RDW Std Deviation RDW Coeff of Rachell Plt Count MPV Immature Gran % (Auto) Neut % (Auto) Lymph % (Auto) Stephens % (Auto) Eos % (Auto) Baso % (Auto) Absolute Neuts (auto) Absolute Lymphs (auto) Nucleated RBC % PT INR APTT Sodium Potassium Chloride Carbon Dioxide Anion Gap BUN Creatinine Estim Creat Clear Calc Est GFR (MDRD) Af Amer Est GFR (MDRD) Non-Af BUN/Creatinine Ratio Glucose Lactic Acid 1.8 Calcium Total Bilirubin Direct Bilirubin AST ALT Alkaline Phosphatase Troponin I Total Protein Albumin Globulin Lipase Blood Type Antibody Screen Crossmatch 03/27/19 05:00 WBC RBC Hgb 10.5 L Hct 32.0 L MCV MCH MCHC RDW Std Deviation RDW Coeff of Rachell Plt Count MPV Immature Gran % (Auto) Neut % (Auto) Lymph % (Auto) Stephens % (Auto) Eos % (Auto) Baso % (Auto) Absolute Neuts (auto) Absolute Lymphs (auto) Nucleated RBC % PT INR APTT Sodium Potassium Chloride Carbon Dioxide Anion Gap BUN Creatinine Estim Creat Clear Calc Est GFR (MDRD) Af Amer Est GFR (MDRD) Non-Af BUN/Creatinine Ratio Glucose Lactic Acid Calcium Total Bilirubin Direct Bilirubin AST ALT Alkaline Phosphatase Troponin I Total Protein Albumin Globulin Lipase Blood Type Antibody Screen Crossmatch POC Glucose 03/26/19 03/26/19 03/26/19 23:27 17:36 12:04 POC Glucose 130 H 120 H 149 H 03/26/19 10:07 POC Glucose 166 H Medical Necessity - Tobacco Use Smoking Status: Current some day smoker Tobacco Use: Cigarettes Assessment/Plan All Active Problems (Last Reviewed 03/02/19 @ 11:08 by Pema Dean) Hematemesis (Acute) History of esophageal cancer (Acute) Edema (Acute) Dyspnea (Acute) Orthopnea (Acute) Hematemesis, history of GE junction cancer I plan to perform emergent EGD with possible control of bleeding. the patient understands the risks, benefits, alternatives and possible complications and consents to the said procedure. upper endoscopy yesterday demonstrated clots without signs of active bleeding in the stomach likely felt to be the proximal stomach. This is felt mostly would be consistent with aspirin related gastritis. The distal esophagus was slightly narrowed but did not have signs of active bleeding varices or recurrence of malignancy. EGD today had stomach clear of clot. moderate diffuse gastritis and a white based ulcer at the GE junction. antral biopsies were performed. mild distal esophagitis with some narrowing - no esopahgeal biopsies were performed. The patient was started on IV Protonix. Will add carafate qid as slurry. OK for clear liquids.
[2019-03-27 06:55] LABS: Bedside Glucose 115 mg/dL (70-110)
[2019-03-27] MEDS: 0.9% NaCl Peripheral Flush Adult/Peds IV (09:32)
[2019-03-27] MEDS: Sucralfate 1 GM Tablet PO (11:24)
[2019-03-27 11:30] LABS: Bedside Glucose 141 mg/dL (70-110)
--- NOTE | 2019-03-27 13:37 | DCINST_ITS ---
- Discharge Diagnoses Current Active Problems: Current Active and Chronic Problems (Last Reviewed 03/02/19 @ 11:08 by Pema Dean) Hematemesis (Acute) You will use the following diet at home:: Calorie/Carbohydrate Controlled (specify 1200, 1400, etc) - 1800 blanca Your food should be the consistency of: Regular Your liquids should be the consistency of: Regular/Thin Discharge Activity: Return to Normal Activity Weight Bearing Status: Full weight bearing Allergies/Adverse Reactions: Allergies No Known Allergies Allergy (Verified 03/03/19 14:56) Medications to take at Discharge metformin 500 mg tablet 500 mg PO BID 08/06/18 diltiazem CD 180 mg capsule,extended release 24 hr 180 mg PO DAILY #30 cap 08/17/18 furosemide 40 mg tablet 40 mg PO Q OTHER DAY #15 tab 02/07/19 Pantoprazole Sodium [Protonix] 40 mg PO DAILY #30 tab 03/27/19 Sucralfate [Carafate] 1 gm PO 1HR_ACHS #120 tab 03/27/19 The following prescriptions were given: Sucralfate [Carafate] 1 gm PO 1HR_ACHS #120 tab Transmission Status: Pending to [facility] MAYES [facility]TA DOW Pantoprazole Sodium [Protonix] 40 mg PO DAILY #30 tab Transmission Status: Pending to SIL[facility] [id number] NETTA DOW Primary Care Physician: Macho Solorio DO [Primary Care Provider] - Please follow up with your Primary Care Physician in: call for appointment Test Results: Test results from this visit will be discussed in further detail at your follow- up appointment, if applicable. Please Follow Up With: Robles Pugh MD When: in 2 weeeks-call for appointment
--- NOTE | 2019-03-29 13:15 | CASEMGMT ---
CRISTIAN REDDY DC PHONE CALL DC DATE: 03/27/19 DC Disposition: Home Diagnosis on Discharge: hemataemesis LACE/STRATA: 04/05 Intro role of CM to patient. States no difficulty, no questions. Pt was at work, so phone call was kept abbreviated. Pipo VAUGHANN RN ACM
--- NOTE | 2019-03-30 20:13 | DS.PCM_ITS ---
Discharge Date and Diagnosis Date of Admission: 03/26/19 Date of Discharge: 03/27/19 - Primary Discharge Diagnosis #1 acute upper GI bleed secondary to gastric ulcer and gastritis-requiring packed red blood cell transfusion #2 chronic atrial fibrillation #3 type 2 diabetes #4 acute blood loss anemia from upper GI bleed requiring packed red blood cell transfusion #5 past history of esophageal cancer-in remission - Secondary Discharge Diagnosis Chronic Problems (Last Reviewed 03/02/19 @ 11:08 by Pema Dean) History of left heart catheterization (Chronic 12/29/17) Chronic kidney disease (Chronic) Diabetes mellitus type 2, uncontrolled (Chronic) History of aortic stenosis (Chronic) Diabetic neuropathy associated with type 2 diabetes mellitus (Chronic) Obstructive sleep apnea (Chronic) Patent foramen ovale (Chronic) Present on echo post TAVR procedure, [facility] [place] Presence of Watchman left atrial appendage closure device (Chronic 07/13/18) S/P TAVR (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 Thierno Ramesh, Dr. Santo Dobbins @ [facility] Chronic atrial fibrillation (Chronic) Chronic diastolic (congestive) heart failure (Chronic) Hyperlipidemia (Chronic) Non-rheumatic aortic stenosis (Chronic) Nicotine dependence (Chronic) Obesity (Chronic) intermediate (current) use of anticoagulants (Chronic) Hospital Course and Treatment Operations: None Procedures: Blood transfusion, EGD Summary of Care Provided: The patient is a 69 year old M was seen in the emergency room at [facility] with a chief complaint of hematemesis, he denied any rectal bleeding, labs obtained in the emergency room revealed his hemoglobin to be 8.7, chemistry panel was remarkable for BUN of 44 and a glucose of 190. Patient was admitted to PCU for acute upper GI bleed, he was made n.p.o. and he underwent an EGD the day of admission which showed multiple blood clots in the stomach but no obvious bleeding. It was recommended the patient be given packed red blood cells and undergo a repeat EGD the next day which she did, there was noted to be a gastric ulcer present along with gastritis, no active bleeding was seen. Patient was given packed red blood cell transfusion during his hospital stay. There were no major complications during his hospital stay. On 03/27/2019, patient was seen and examined: On examination he appeared in good health and spirits. Vital signs as documented. Skin warm and dry and without overt rashes. Neck without JVD. Lungs clear. Heart exam notable for irregular rhythm, no rubs were noted. Abdomen unremarkable and without evidence of organomegaly, masses, or abdominal aortic enlargement. Extremities nonedematous. Neuro: Cranial nerves II through XII are grossly intact, no focal motor deficits were noted, sensation to light touch and pinprick intact. Psych: Patient is alert and oriented x3, he does not appear anxious or depressed On 03/27/2019, patient was seen and examined and felt to be in stable condition for discharge home, patient was advised to stop smoking. - Physical Exam Vital Signs Temp Pulse Resp BP Pulse Ox 97.6 F L 94 18 104/70 95 03/27/19 13:55 03/27/19 13:55 03/27/19 13:55 03/27/19 13:55 03/27/19 13:55 Oxygen Flow Rate (L/min) 2 Oxygen Delivery Method Room Air Weight: 91.5 kg Body Mass Index (BMI) 29.7 Discharge Activity: Return to Normal Activity Weight Bearing Status: Full weight bearing Home Medications: Medications to take at Discharge metformin 500 mg tablet 500 mg PO BID 08/06/18 diltiazem CD 180 mg capsule,extended release 24 hr 180 mg PO DAILY #30 cap 08/17/18 furosemide 40 mg tablet 40 mg PO Q OTHER DAY #15 tab 02/07/19 Pantoprazole Sodium [Protonix] 40 mg PO DAILY #30 tab 03/27/19 Sucralfate [Carafate] 1 gm PO 1HR_ACHS #120 tab 03/27/19 Following Prescrptions Were Given to Patient: Sucralfate [Carafate] 1 gm PO 1HR_ACHS #120 tab Transmission Status: Received by SILVIO CHADWICK RD Pantoprazole Sodium [Protonix] 40 mg PO DAILY #30 tab Transmission Status: Received by SILVIO CARTAGENA NETTA DOW Primary Care Physician: Macho Solorio DO [Primary Care Provider] - Please follow up with your Primary Care Physician in: call for appointment Please Follow Up With: Robles Pugh MD When: in 2 weeeks-call for appointment Medical Necessity - Tobacco Use Smoking Status: Current some day smoker Tobacco Use: Cigarettes Meaningful Use Info Meaningful Use Diagnoses (Choose all that apply): None applicable Code Visit Inpatient E&M: 37764 Disch Hosp
== END 2019-03-27 14:20 | disposition home or self-care (01) | DRG 378 ==
LOC: ED 07:17 → EN 09:29 → ED 09:30 → AC 09:48 → ED 11:37 → PCU 12:06 → ED 03-28 08:08 → AC 03-28 08:14 → ED 03-28 08:14 → EN 03-28 08:14 → PCU 03-29 10:07
PROVIDERS: Hospitalist; Admitting Provider Internal Medicine; Emergency Provider Emergency Medicine; Family Provider Student in an Organized Health Care Education/Training Program; PCP Student in an Organized Health Care Education/Training Program; Referring Provider Surgery; Visit Provider Internal Medicine
PROC: 0DJ08ZZ Inspection of Upper Intestinal Tract, Via Natural or Artificial Opening Endoscopic (ICD-10-PCS; CPT 43235; principal; 2019-03-26 10:15)
DX: K25.4 Chronic or unspecified gastric ulcer with hemorrhage (principal); D62 Acute posthemorrhagic anemia; I50.32 Chronic diastolic (congestive) heart failure; Q21.1 Atrial septal defect; K29.71 Gastritis, unspecified, with bleeding; I48.2 Chronic atrial fibrillation; E78.5 Hyperlipidemia, unspecified; Z92.3 Personal history of irradiation; Z92.21 Personal history of antineoplastic chemotherapy; Z85.01 Personal history of malignant neoplasm of esophagus; Z95.2 Presence of prosthetic heart valve; K20.9 Esophagitis, unspecified; Z79.84 Long term (current) use of oral hypoglycemic drugs; E11.40 Type 2 diabetes mellitus with diabetic neuropathy, unspecified; F17.210 Nicotine dependence, cigarettes, uncomplicated
CPT/HCPCS: 36415; 71045; 80048; 80076; 82962; 83605; 83690; 84484; 85014; 85018; 85025; 85610; 85730; 86850; 86900; 86901; 86920; 88305; 88342; 93005; 99285; 99406; J7030; J7040; J7050; J7120; P9016; A4216; J2405

== ENCOUNTER 2019-03-31 13:30 | Inpatient (IN) | payer OTHER, SELFPAY ==
[2019-03-26 11:21] VITALS: BMI 29.7
[2019-03-31] VITALS (14 sets, daily range): BP systolic 87–109; BP diastolic 59–88; PULSE 70–105; RESP 14–28; TEMP 36.8–37.2; O2SAT 96–100; BMI 31.8; BMI 29.9
--- NOTE | 2019-03-31 13:40 | EKG12_ITS ---
Test Reason : WEAKNESS Blood Pressure : / mmHG Vent. Rate : 105 BPM Atrial Rate : 104 BPM P-R Int : 000 ms QRS Dur : 098 ms QT Int : 384 ms P-R-T Axes : 000 000 021 degrees QTc Int : 507 ms Atrial fibrillation with rapid ventricular response Low voltage QRS Abnormal ECG Confirmed by MARCIANO CUMMINS, DELL ([id number]), story editor IRMA ABEBE ([id number]) on 04/05/2019 10:32:51 AM Referred By: MARIBEL Confirmed By:JAKUB TARIQ MD
--- NOTE | 2019-03-31 13:40 | RAD_ITS ---
STUDY: X-RAY CHEST REASON FOR EXAM: Male, 69 years old. Weakness. TECHNIQUE: Single AP portable view of the chest. COMPARISON: Comparison is made with prior examination dated March 26, 2019. FINDINGS: EKG electrodes are seen. Progressive small left pleural effusion with underlying left basilar infiltration and/or atelectasis. Elevation of the left hemidiaphragm. Mild degree of vascular congestion. There is moderate cardiac enlargement. Normal mediastinum and ines. Normal visualized pulmonary arteries. Normal visualized aortic arch and descending thoracic aorta. There are diffuse degenerative changes of the visualized thoracic spine. Normal visualized ribs, clavicles, and shoulders. There is no demonstrated abnormality of the visualized soft tissue structures of the upper abdomen. RAD/Chest 1 View (Portable) IMPRESSION: New small left pleural effusion with left basilar infiltration and/or atelectasis. Mild degree of vascular congestion. Electronically Signed: Richie Weir, at 14:54 EDT , Service support ,
--- NOTE | 2019-03-31 13:45 | ED.DCSUM_ITS ---
History of Present Illness Chief Complaint: Weakness Informant: Patient Onset: Days Context: Gradual Onset Timing: Intermittent Current Severity: Moderate Maximum Severity: Moderate Narrative: The patient presents to the emergency department generalized weakness, dizziness, near syncope. Patient has a history of TAVR and chronic atrial fibrillation. He is not on anticoagulants. The patient was admitted 5 days ago for upper GI bleed. He was transfused 3 units of blood. He underwent endoscopy which showed a bleeding ulcer. The patient was discharged and is feeling improved. He states over the past few days, he is just had increasing generalized weakness. He states he is also been nauseated but denies any vomiting. He states that his symptoms are slightly similar to when he was admitted, but not nearly as severe. He states that when he tries to get himself or walk a distance, feels like he cannot catch his breath he just does not feel well. Prior similar symptoms: Yes Recent Illness/Hospitalization: Yes Past Medical History - Allergies and Home Meds Allergies/Adverse Reactions: Allergies No Known Allergies Allergy (Verified 03/03/19 14:56) Primary Care Physician: Macho Solorio DO [Primary Care Provider] - Prior records reviewed: Yes Past Medical History: - Surgical History: appendectomy, - - Aortic valve replacement via TAVR, insertion of watchman Smoking Status: Former smoker Alcohol: None Drugs: None - Family History Maternal Family History: Family History (Last Reviewed 03/02/19 @ 11:08 by Pema Dean) Mother CVA (cerebral vascular accident) Father CVA (cerebral vascular accident) Sister Diabetes Brother Heart disease Family History: Reports: Stroke Paternal Family History: Family History (Last Reviewed 03/02/19 @ 11:08 by Pema Dean) Mother CVA (cerebral vascular accident) Father CVA (cerebral vascular accident) Sister Diabetes Brother Heart disease Family History: Reports: Stroke Review of Systems General: Reports: Malaise. Denies: Chills, Fever, Sweats Eyes: Denies: Visual changes - bilaterally, Diplopia ENT: Denies: Rhinorrhea, Sore throat Cardiovascular: Denies: Chest pain, Palpitations Respiratory: Reports: Dyspnea. Denies: Cough, Dyspnea on exertion Gastrointestinal: Reports: Nausea. Denies: Abdominal pain, Vomiting, Diarrhea, Melena, Hematochezia Genitourinary: Denies: Dysuria, Hematuria, Frequency Musculoskeletal: Denies: Back pain, Extremity Pain Skin: Denies: Rash, Wounds Neurological: Denies: Headache, Weakness, Numbness Psych: Denies: Depression Endocrine: Denies: Polyuria Physical Exam Vital Signs/Narrative: Vital Signs Temp Pulse Resp BP Pulse Ox 03/31/19 13:31 98.2 F 103 H 16 97/71 97 Inital Vital Signs reviewed: Yes General: Well nourished, Well developed, No Acute Distress Head: Normocephalic, Atraumatic Eyes: Perrl, EOMI ENT: Moist mucous membranes, No rhinorrhea Neck: Supple, Nontender Cardiovascular: Regular rate, No murmurs, Irregular, Tachycardia Respiratory: No distress, CTA bilaterally, Chest nontender Abdomen: Soft, Nontender, Nondistended, Normal bowel sounds Back: Nontender, Normal Inspection Extremities: Nontender, No edema Skin: Normal color, No rash Neurological: Alert, Oriented x3, Cranial nerves II-XII grossly intact, Normal Strength, Normal Sensation Psychological: Normal affect, Normal Mood Diagnostic/Tx/Re-eval Clinical Impression(s) from Imaging Studies Chest X-Ray 03/31/19 13:40 IMPRESSION: New small left pleural effusion with left basilar infiltration and/or atelectasis. Mild degree of vascular congestion. Electronically Signed: Richie Weir, at 14:54 EDT , Service support , Abnormal Lab Results 03/31/19 03/31/19 03/31/19 13:30 13:30 13:30 WBC 8.6 RBC 2.38 L Hgb 7.3 L Hct 23.0 L MCV 96.6 H MCH 30.7 MCHC 31.7 L RDW Std Deviation 51.8 H RDW Coeff of Rachell 15.1 H Plt Count 181 MPV 11.3 Immature Gran % (Auto) 0.900 Neut % (Auto) 76.2 H Lymph % (Auto) 11.3 L [place] % (Auto) 9.9 Eos % (Auto) 1.2 Baso % (Auto) 0.5 Absolute Neuts (auto) 6.5 Absolute Lymphs (auto) 0.97 Nucleated RBC % 0.2 Sodium 140 Potassium 3.7 Chloride 104 Carbon Dioxide 31.0 Anion Gap 5 BUN 17 Creatinine 0.84 Estim Creat Clear Calc 83.00 Est GFR (MDRD) Af Amer 117 Est GFR (MDRD) Non-Af 96 BUN/Creatinine Ratio 20.3 H Glucose 139 H Lactic Acid Calcium 7.8 L Total Bilirubin 0.60 AST 17 ALT 20 Alkaline Phosphatase 63 Troponin I 0.023 Total Protein 6.0 L Albumin 2.4 L Globulin 3.6 Albumin/Globulin Ratio 0.7 L Urine Color Urine Clarity Urine pH Ur Specific [place] Urine Protein Urine Glucose (UA) Urine Ketones Urine Occult Blood Urine Nitrite Urine Bilirubin Urine Urobilinogen Ur Leukocyte Esterase Blood Type A NEGATIVE Antibody Screen NEGATIVE 03/31/19 03/31/19 14:10 14:50 WBC RBC Hgb Hct MCV MCH MCHC RDW Std Deviation RDW Coeff of Rachell Plt Count MPV Immature Gran % (Auto) Neut % (Auto) Lymph % (Auto) [place] % (Auto) Eos % (Auto) Baso % (Auto) Absolute Neuts (auto) Absolute Lymphs (auto) Nucleated RBC % Sodium Potassium Chloride Carbon Dioxide Anion Gap BUN Creatinine Estim Creat Clear Calc Est GFR (MDRD) Af Amer Est GFR (MDRD) Non-Af BUN/Creatinine Ratio Glucose Lactic Acid 1.4 Calcium Total Bilirubin AST ALT Alkaline Phosphatase Troponin I Total Protein Albumin Globulin Albumin/Globulin Ratio Urine Color YELLOW Urine Clarity Clear Urine pH 5.0 Ur Specific [place] 1.015 Urine Protein 30 H Urine Glucose (UA) Normal Urine Ketones Negative Urine Occult Blood Negative Urine Nitrite Negative Urine Bilirubin Negative Urine Urobilinogen 4 H Ur Leukocyte Esterase Negative Blood Type Antibody Screen - Rhythm Strip Rhythm Strip: A-fib Rate: 100 Ectopy: PAC(s) - EKG Initial EKG Interpretation: No Acute Injury Pattern, Atrial Fibrillation Prior: Unchanged - Medical Decision Making The patient presents to the emergency department weakness. He was recently hospitalized with a GI bleed. All of his anticoagulants have been stopped. He denies any hematemesis or bright red blood per rectum. He states that he has had some dark stools since his discharge, but it is not changed in frequency. He states that he is just been feeling generally weak. IV was established. Type and screen was obtained. EKG demonstrates fibrillation which the patient has a history of. There is no evidence of strain. Screening labs obtained. The patient does have worsening of his anemia with a hemoglobin of 7.3. However, his BUN is normalized. His lactic acid is also normal. Patient underwent 2 endoscopies by and I did discuss the case. He did state that the ulcer was hard technically to get to. He wants to obtain a bleeding scan which I feel is reasonable. If the patient is actively bleeding, he did recommend he be transferred to a higher level of care. This is currently pending and final disposition will be made after completion of bleeding scan. Impression 1. Symptomatic anemia ED Disposition - Plan for ED Patient: Referrals: Macho Solorio DO [Primary Care Provider] -
[2019-03-31 13:52] LABS: Absolute Lymphocyte Count 0.97 X10^3/uL (0.83-4.51); Absolute Neutrophil Count 6.5 X10^3/uL (2.0-7.7); Basophil# 0.04 X10^3/uL; Basophil% 0.5 % (0-1); Eosinophils% 1.2 % (0-5); Hemoglobin 7.3 g/dL (13.0-16.5); Lymphocyte # 0.97 X10^3/ul (4.0); Lymphocyte % 11.3 % (19-41); Mean Corp Hgb Conc 31.7 g/dL (32-36); Mean Corpuscular Hgb 30.7 pg (27.0-32.0); Mean Corpuscular Volume 96.6 fL (80-94); Mean Platelet Vol. 11.3 fl (6.2-12.0); Monocyte# 0.85 X10^3/uL; Monocyte% 9.9 % (0-10); NRBC Flagged by Analyzer 0.2 % (0-5); Neutrophil # 6.53 X10^3/uL (2.7-7.7); Neutrophil % 76.2 % (47-70); Platelet Count 181 K/mm3 (150-450); RBC Distribution Width CV 15.1 % (11.6-14.6); RBC Distribution Width SD 51.8 fl (35.1-43.9); Red Blood Count 2.38 M/mm3 (4.6-6.2); White Blood Count 8.6 K/mm3 (4.4-11.0)
[2019-03-31 14:06] LABS: ALB/GLOB Ratio 0.7 RATIO (0.9-2.4); AST(SGOT) 17 U/L (15-37); Alanine Aminotransfer ALT/SGPT 20 U/L (16-61); Albumin, Serum 2.4 g/dL (3.2-5.0); Alkaline Phosphatase 63 U/L (45-117); Anion Gap 5 (5-15); BUN 17 mg/dL (7-18); BUN/Creat Ratio 20.3 RATIO (10-20); Calcium,Total 7.8 mg/dL (8.5-10.1); Chloride 104 mmol/L (98-107); Creatinine, Serum 0.84 mg/dL (0.70-1.30); EST Glomerular Filtration Rate 96 mL/min (>60); Est Glom Filt Rate - Afr Amer 117 mL/min (>60); Globulin 3.6 g/dL (2.2-4.2); Glucose 139 mg/dL (74-106); Potassium 3.7 mmol/L (3.5-5.1); Sodium Level 140 mmol/L (136-145)
[2019-03-31 14:42] LABS: Lactic Acid 1.4 mmol/L (0.4-2.0)
--- NOTE | 2019-03-31 14:54 | NM_ITS ---
CLINICAL: 69-year-old male with reported history of gastrointestinal hemorrhage. LABELED BLOOD POOL GASTROINTESTINAL BLEEDING STUDY COMPARISON: None available FINDINGS: Following the intravenous administration of 26.0 mCi of 99m Tc Ultratag labeled RBCs, image acquisitions of the anterior-abdomen and pelvis for a total of 60 minutes reveal: 1. Static sequential 1 minute acquisitions of the anterior abdomen and pelvis demonstrate no evidence of increased radiopharmaceutical concentration indicative of acute gastrointestinal hemorrhage. 2. Physiologic distribution of the radiopharmaceutical is demonstrated in the hepatic, splenic, cardiac and major vascular blood pool. There is demonstration of the urinary bladder and external genitalia. NM/GI Bleed Scan IMPRESSION: 1. NEGATIVE 99m Tc ULTRATAG LABELED BLOOD POOL GASTROINTESTINAL BLEEDING EXAMINATION. 2. There is no scintigraphic evidence of acute gastrointestinal hemorrhage on the current evaluation. Electronically Signed: Robles Trujillo DO at 17:45 EDT Tel , Service support ,
[2019-03-31 14:58] LABS: Bacteria 0 SEEN /hpf (None Seen); Mucous, Urine 0 SEEN /hpf (<or=2+); Red Blood Cells-Urine 0 SEEN /hpf (0-5); Squamous Epithelial Cells - UA 0 SEEN /hpf (0-5); White Blood Cells 0 SEEN /hpf (0-5)
[2019-03-31 15:00] LABS: Glucose, Dipstick Normal (Normal); Ketone-Dipstick Negative (Negative); Leukocyte Esterase-Dipstick Negative /ul (Negative); Nitrite-Dipstick Negative (Negative); Occult Blood-Urine Negative /ul (Negative); Protein-Dipstick 30 mg/dl (Negative); Specific Gravity, Urine 1.015 (1.002-1.030); Urine Bilirubin Dipstick Negative (Negative); Urine Urobilinogen 4 mg/dl (Normal)
[2019-03-31 15:03] LABS: Color, Urine YELLOW (Yellow); Urine Clarity Clear (Clear)
--- NOTE | 2019-03-31 15:40 | ED.RN ---
Manual BP on left arm 90/80
--- NOTE | 2019-03-31 18:14 | NURSING ---
DR RAMIREZ FOR DR MCKEON
--- NOTE | 2019-03-31 18:16 | NURSING ---
PCU ANEMIA, HYPOTENSION ASHELFAH
--- NOTE | 2019-03-31 18:22 | NURSING ---
DR RAMIREZ IN ER
--- NOTE | 2019-03-31 18:23 | NURSING ---
PCU ACUTE SYMPTOMATIC RECURRENT ANEMIA ASHELFAH
--- NOTE | 2019-03-31 18:36 | PCM.HP.STD ---
Problem List (1) Diabetes mellitus type 2, uncontrolled Status: Chronic (2) Obstructive sleep apnea Status: Chronic (3) Patent foramen ovale Status: Chronic Comment: Present on echo post TAVR procedure, [facility] [place] (4) History of esophageal cancer Status: Chronic (5) Chronic atrial fibrillation Status: Chronic (6) Hyperlipidemia Status: Chronic History of Present Illness Date of Admission: 03/31/19 Chief Complaint: Weakness, dizziness. The patient is a 69 year old M with past medical history as mentioned above presented to the emergency room because of weakness and dizziness. Patient was discharged from the hospital 4 days ago after admission for GI bleed with acute blood loss anemia, underwent upper endoscopy that revealed findings consistent with gastritis and he was discharged home on PPI. Today, patient woke up normally, ate some crackers and milk and he started having some abdominal discomfort and he felt sick to his stomach. Shortly after, he became profoundly weak, dizzy and he was about to pass out, associated with nausea without vomiting and without aggravating or relieving factors. His [id number] mentioned that he has been having spells of dizziness since he was discharged from the hospital 4 days ago. Patient reported that he still having black stools. He denied hematochezia, epistaxis, hematemesis, hemoptysis or hematuria. He denied chest pain or shortness of breath. He denies syncope or presyncope. He has history of chronic atrial fibrillation, has been on Cardizem for rate control and he was taken off Coumadin recently because of the GI bleed. He had history of type 2 diabetes mellitus which has been under control with metformin. He had history of aortic stenosis status post TAVR. In the emergency department, patient was slightly tachycardic, blood pressure was borderline, other vital signs are stable. Routine blood work was remarkable for hemoglobin of 7.3 g/dL, otherwise normal. LFT was normal. EKG revealed A. fib, rate around 105, no acute ischemic changes. GI nuclear bleeding scan revealed no scintigraphic evidence of acute GI bleed. He is being admitted acute symptomatic anemia in context of recent history of GI bleed and acute blood loss anemia required blood transfusion. Past Medical History Past Medical History (Chronic Problems): Chronic Problems (Last Reviewed 03/02/19 @ 11:08 by Pema Dean) History of left heart catheterization (Chronic 12/29/17) Chronic kidney disease (Chronic) Diabetes mellitus type 2, uncontrolled (Chronic) History of aortic stenosis (Chronic) Diabetic neuropathy associated with type 2 diabetes mellitus (Chronic) Obstructive sleep apnea (Chronic) Patent foramen ovale (Chronic) Present on echo post TAVR procedure, [facility] Presence of Watchman left atrial appendage closure device (Chronic 07/13/18) S/P TAVR (transcatheter aortic valve replacement) (Chronic 07/13/18) 29mm Krista S3 valve, R [employer] access per Dr. Thierno Ramesh, Dr. 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) E11.40 Obstructive sleep apnea (Chronic) G47.33 Patent foramen ovale (Chronic) Q21.1 Present on echo post TAVR procedure, [facility] Chronic atrial fibrillation (Chronic) I48.2 Chronic diastolic (congestive) heart failure (Chronic) I50.32 Hyperlipidemia (Chronic) E78.5 Non-rheumatic aortic stenosis (Chronic) I35.0 Nicotine dependence (Chronic) F17.200 Obesity (Chronic) E66.9 Esophageal cancer Onset Date: ~2012 C15.9 Phimosis N47.1 Allergies No Known Allergies Allergy (Verified 03/03/19 14:56) Home Medications: Ambulatory Orders Medication Instructions Recorded metformin 500 mg tablet 500 mg PO BID 08/06/18 diltiazem CD 180 mg 180 mg PO DAILY #30 cap 08/17/18 capsule,extended release 24 hr Pantoprazole Sodium [Protonix] 40 mg PO DAILY #30 tab 03/27/19 Furosemide 40 mg PO QODAY 03/31/19 Sucralfate [Carafate] 1 gm PO ACHS 03/31/19 Surgical History: Surgical History (Last Reviewed 03/02/19 @ 11:08 by Pema A Dianne) History of left heart catheterization (Chronic) Onset Date: 12/29/17 Z98.890 Presence of Watchman left atrial appendage closure device (Chronic) Onset Date: 07/13/18 Z95.818 S/P TAVR (transcatheter aortic valve replacement) (Chronic) Onset Date: 07/13/18 Z95.2 29mm Krista S3 valve, R [employer] access per Dr. Thierno Ramesh, Dr. Santo Dobbins @ [facility] History of appendectomy Z90.49 History of umbilical hernia repair Z98.890, Z87.19 Surgical History: appendectomy, - - Aortic valve replacement via TAVR, insertion of watchman Psychiatric History: No pertinent psych hx Lives: Spouse/ Significant Other Smoking Status: Former smoker Alcohol: None Drugs: None - *Family History Maternal Family History: Family History (Last Reviewed 03/02/19 @ 11:08 by Pema Dean) Mother CVA (cerebral vascular accident) Father CVA (cerebral vascular accident) Sister Diabetes Brother Heart disease History Items: Stroke Paternal Family History: Family History (Last Reviewed 03/02/19 @ 11:08 by Pema Dean) Mother CVA (cerebral vascular accident) Father CVA (cerebral vascular accident) Sister Diabetes Brother Heart disease History Items: Stroke Review of Systems Constitutional: Reports: Weakness, Fatigue. Denies: Anorexia, Chills, Fever Eyes: Denies: Blurred vision, Double vision, Drainage, Redness HEENT: Denies: Difficulty Hearing, Ear Pain, Eye Pain, Nasal Congestion, Sore Throat Cardiovascular: Reports: Light Headedness. Denies: Chest Pain, Chest Pressure, Chest Tightness, Palpitations, Syncope Respiratory: Denies: Cough, Pleuritic Pain, Shortness of Breath, Sputum production, Wheezing Gastrointestinal: Reports: Nausea, Melena. Denies: Abdominal Pain, Constipation, Diarrhea, Vomiting Genitourinary: Denies: Dysuria, Frequency, Hematuria Musculoskeletal: Denies: Arm Pain, Back Pain, Foot Pain Skin: Denies: Dryness, Rash Neurological: Denies: Balance problems, Double vision, Change in Speech, Slurred speech, Confusion, Headaches, Incoordination, Numbness, Tingling Psychiatric: Denies: Anxiety, Depression Endocrine: Denies: Change in Body Habitus, Polydipsia, Polyuria VTE Information - Inpt Only VTE Present on Admission: No VTE Mechan Device Prophylaxis: SCD's VTE Pharm Prophylaxis ordered?: No - Physical Exam General: Alert, Oriented x3, Cooperative, No apparent distress HEENT: Atraumatic, PERRLA, EOMI, Normocephalic Oral: Moist Mucosa, No Gingival or Mucosal Lesions/ Ulcerations Neck: Supple, No JVD, Negative Carotid Bruits, Trachea Midline, Thyroid Normal Size and Texture Lungs: Clear to auscultation, Normal air movement, No rhonchi, No wheeze, No rales, Diminished Cardiovascular: Normal S1, Normal S2, PMI Normal, Irregular Rate Abdomen: Bowel Sounds Present, Soft, Non Tender, Non-Distended, No Hepato-splenomegaly Extremities: No clubbing, No cyanosis, No edema Skin: No rashes, No breakdown Lymphatic: No Cervical, Supraclavicular, or Inguinal Adenopathy Neurological: Cranial nerves II-XII grossly intact, Motor Exam 5/5 strength throughout Psych/Mental Status: Normal Affect, Appropriate, Alert and oriented to time, place, person, mood and affect Vital Signs Temp Pulse Resp BP Pulse Ox 98.5 F 97 14 93/69 98 03/31/19 18:24 03/31/19 18:24 03/31/19 18:24 03/31/19 18:24 03/31/19 18:24 Oxygen Flow Rate (L/min) 4 Oxygen Delivery Method Room Air Weight: 215 lb 6.266 oz Body Mass Index (BMI) 31.8 Intake and Output for Last 24 Hours 03/29/19 03/30/19 03/31/19 23:59 23:59 23:59 Intake Total 535 / 535 Balance 535 / 535 Laboratory Tests Past 24 Hrs 03/31/19 03/31/19 03/31/19 13:30 13:30 13:30 WBC 8.6 RBC 2.38 L Hgb 7.3 L Hct 23.0 L MCV 96.6 H MCH 30.7 MCHC 31.7 L RDW Std Deviation 51.8 H RDW Coeff of Rachell 15.1 H Plt Count 181 MPV 11.3 Immature Gran % (Auto) 0.900 Neut % (Auto) 76.2 H Lymph % (Auto) 11.3 L [place] % (Auto) 9.9 Eos % (Auto) 1.2 Baso % (Auto) 0.5 Absolute Neuts (auto) 6.5 Absolute Lymphs (auto) 0.97 Nucleated RBC % 0.2 Sodium 140 Potassium 3.7 Chloride 104 Carbon Dioxide 31.0 Anion Gap 5 BUN 17 Creatinine 0.84 Estim Creat Clear Calc 83.00 Est GFR (MDRD) Af Amer 117 Est GFR (MDRD) Non-Af 96 BUN/Creatinine Ratio 20.3 H Glucose 139 H Lactic Acid Calcium 7.8 L Total Bilirubin 0.60 AST 17 ALT 20 Alkaline Phosphatase 63 Troponin I 0.023 Total Protein 6.0 L Albumin 2.4 L Globulin 3.6 Albumin/Globulin Ratio 0.7 L Urine Color Urine Clarity Urine pH Ur Specific [place] Urine Protein Urine Glucose (UA) Urine Ketones Urine Occult Blood Urine Nitrite Urine Bilirubin Urine Urobilinogen Ur Leukocyte Esterase Urine RBC Urine WBC Ur Squamous Epith Cells Urine Bacteria Urine Mucus Blood Type A NEGATIVE Antibody Screen NEGATIVE Crossmatch 03/31/19 03/31/19 03/31/19 13:30 14:10 14:50 WBC RBC Hgb Hct MCV MCH MCHC RDW Std Deviation RDW Coeff of Rachell Plt Count MPV Immature Gran % (Auto) Neut % (Auto) Lymph % (Auto) [place] % (Auto) Eos % (Auto) Baso % (Auto) Absolute Neuts (auto) Absolute Lymphs (auto) Nucleated RBC % Sodium Potassium Chloride Carbon Dioxide Anion Gap BUN Creatinine Estim Creat Clear Calc Est GFR (MDRD) Af Amer Est GFR (MDRD) Non-Af BUN/Creatinine Ratio Glucose Lactic Acid 1.4 Calcium Total Bilirubin AST ALT Alkaline Phosphatase Troponin I Total Protein Albumin Globulin Albumin/Globulin Ratio Urine Color YELLOW Urine Clarity Clear Urine pH 5.0 Ur Specific [place] 1.015 Urine Protein 30 H Urine Glucose (UA) Normal Urine Ketones Negative Urine Occult Blood Negative Urine Nitrite Negative Urine Bilirubin Negative Urine Urobilinogen 4 H Ur Leukocyte Esterase Negative Urine RBC 0 SEEN Urine WBC 0 SEEN Ur Squamous Epith Cells 0 SEEN Urine Bacteria 0 SEEN Urine Mucus 0 SEEN Blood Type Antibody Screen Crossmatch See Detail Clinical Impression(s) from Imaging Studies Chest X-Ray 03/31/19 13:40 IMPRESSION: New small left pleural effusion with left basilar infiltration and/or atelectasis. Mild degree of vascular congestion. Electronically Signed: Richie Weir, at 14:54 EDT , Service support , GI Bleed Scan Nuclear Medicine 03/31/19 14:54 IMPRESSION: 1. NEGATIVE 99m Tc ULTRATAG LABELED BLOOD POOL GASTROINTESTINAL BLEEDING EXAMINATION. 2. There is no scintigraphic evidence of acute gastrointestinal hemorrhage on the current evaluation. Electronically Signed: Robles Trujillo, DO at 17:45 EDT Tel , Service support , Assessment/Plan This is a 69 years old male patient presented to the emergency room because of weakness and dizziness, found to have hemoglobin of 7.3 g/dL consistent with acute symptomatic anemia in context of recent history of GI bleed with acute blood loss anemia and also found to have small new left side pleural effusion. #1 acute symptomatic anemia: With recent history of GI bleed and acute blood loss anemia, underwent upper EGD that revealed blood clots in the proximal stomach and findings consistent with gastritis without evidence of active bleeding, patient was discharged from the hospital 4 days ago. Repeat upper EGD on the day of discharge showed that stomach is cleared of blood clots, moderate diffuse gastritis. Upon discharge, hemoglobin was 10.5 g/dL. Admission hemoglobin 7.3 g/dL. Patient was taken off aspirin recently and before that, he was taken off Plavix and Coumadin. Plan: Admit to PCU, cardiac monitoring, transfused 2 units of packed RBCs, start IV Protonix twice daily, check pro time and INR, general surgery consult, repeat H&H after completing blood transfusion, repeat CBC and BMP tomorrow morning. #2 small new left-sided pleural effusion: Chest x-ray reviewed. This is could be due to congestive heart failure. Patient denies any worsening shortness of breath than usual, he has no leg edema. Plan to give IV Lasix in between blood transfusion, avoid IV fluids to avoid volume overload. #3 chronic atrial fibrillation: Rate has been around 105, EKG reviewed, no acute changes. Plan to continue Cardizem for rate control. Patient was taken off anticoagulation recently. #4 type 2 diabetes mellitus: Keep on clear liquids, Accu-Cheks, exercising scale, hold metformin for now. #5 chronic diastolic CHF: I doubt any acute CHF at this point. Chest x-ray reviewed as above. Plan to give IV Lasix between blood transfusion, continue Lasix. #6 history of aortic stenosis: Status post AVR, stable. #7 DVT prophylaxis: SCDs. This note was generated with [employer]iration dictation software. It may contain incorrect words, spelling, and punctuation that were not noted in checking the note before signing. Code Visit Inpatient E&M: 76566 Init Hosp L3
[2019-03-31 20:03] LABS: International Normalized Ratio 1.4; Prothrombin Time (Protime)PT. 17.2 SECONDS (11.7-14.9)
[2019-03-31] MEDS: Furosemide 20 MG/2 ML VIAL IV (22:04)
[2019-03-31] MEDS: Sucralfate 1 GM Tablet PO (22:05)
[2019-03-31 22:21] LABS: Bedside Glucose 132 mg/dL (70-110)
[2019-04-01] VITALS (13 sets, daily range): BP systolic 97–129; BP diastolic 54–82; PULSE 87–117; RESP 16–18; TEMP 36.4–37.2; O2SAT 93–99
[2019-04-01 03:50] LABS: Absolute Lymphocyte Count 1.64 X10^3/uL (0.83-4.51); Absolute Neutrophil Count 5.5 X10^3/uL (2.0-7.7); Basophil# 0.05 X10^3/uL; Basophil% 0.6 % (0-1); Eosinophil# 0.18 X10^3/uL; Eosinophils% 2.2 % (0-5); Hematocrit 28.2 % (40-54); Hemoglobin 9.2 g/dL (13.0-16.5); Lymphocyte # 1.64 X10^3/ul (4.0); Lymphocyte % 19.8 % (19-41); Mean Corp Hgb Conc 32.6 g/dL (32-36); Mean Corpuscular Hgb 30.7 pg (27.0-32.0); Mean Platelet Vol. 11.2 fl (6.2-12.0); Monocyte# 0.84 X10^3/uL; Monocyte% 10.1 % (0-10); NRBC Flagged by Analyzer 0.2 % (0-5); Neutrophil # 5.51 X10^3/uL (2.7-7.7); Neutrophil % 66.6 % (47-70); Platelet Count 193 K/mm3 (150-450); RBC Distribution Width CV 15.4 % (11.6-14.6); RBC Distribution Width SD 51.4 fl (35.1-43.9); White Blood Count 8.3 K/mm3 (4.4-11.0)
[2019-04-01 03:56] LABS: Anion Gap 2 (5-15); BUN 19 mg/dL (7-18); BUN/Creat Ratio 24.2 RATIO (10-20); Calcium,Total 8.1 mg/dL (8.5-10.1); Chloride 104 mmol/L (98-107); Creatinine, Serum 0.79 mg/dL (0.70-1.30); EST Glomerular Filtration Rate 104 mL/min (>60); Est Glom Filt Rate - Afr Amer 126 mL/min (>60); Estimated Creatinine Clearance 67.45 ml/min; Glucose 132 mg/dL (74-106); Potassium 3.7 mmol/L (3.5-5.1); Sodium Level 139 mmol/L (136-145)
[2019-04-01] MEDS: Sucralfate 1 GM Tablet PO ×3 (06:25→16:12)
[2019-04-01 06:30] LABS: Bedside Glucose 130 mg/dL (70-110)
[2019-04-01] MEDS: dilTIAZem CD 180 MG Capsule PO (08:31)
[2019-04-01] MEDS: Furosemide 40 MG Tablet PO (08:31)
[2019-04-01 11:11] LABS: Bedside Glucose 155 mg/dL (70-110)
--- NOTE | 2019-04-01 11:21 | NURSING ---
This nurse was told that Dr. Peguero signed out. Family of Mr. Salamanca wondering when Dr. Peguero is coming to see him. This nurse called Dr. Alfred and she informed this nurse that Dr. peguero had told her that he recommended transferring Mr. Salamanca out to a higher level of care. Dr. Plascencia updated and seeing pt now.
--- NOTE | 2019-04-01 11:35 | CASEMGMT ---
CRISTIAN REDDY assessment: Face to Face with patient for initial transition planning/care coordination assessment. CRISTIAN REDDY introduced self and role at [facility], pt voices understanding and consents to assessment at this time. Pt is sitting up in bed in no distress at this time with family at bedside. Pt is A/Ox4 at this time and answers all questions appropriately at this time. Care providers, pharmacy, and demographics verified at this time. Pt presented to ED 03/31/19 with c/o weakness and dizziness since 03/28/19 and black stools. Pt was admitted 03/26-03/27/19 and had an upper scope done. Dr. Plascencia did discuss possibility of transfer to [facility] but Dr/pt/family decided to re-check hemoglobin prior to decision. PCP: Osmin Specialists: James, cardio; Vj, [facility]; LASHON TorresF-TAVR Preferred [facility]acy: [email or web address] Insurance: [employer] Prescription Benefit: self pay Living Will/HPOA: Pt states does not have LW/HPOA and declines info at this time. LNOK: Keena Salamanca, ; Horacio Salamanca, son Living Arrangements: Pt states lives with family in 1 story home and states no concerns at home at this time. Pt states is independent with ADL's. Transportation: Pt states no transportation concerns at this time. DME/HHC: Pt states has a cane but does not use and states no need for any further DME at this time. Pt states no hx of HHC or SNF in the past. Pt states no concerns with going home at time of discharge. 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 Pt states does not smoke or drink ETOH. Pt/family state no further questions/concerns/needs at this time. CM to follow for any further discharge planning/needs. Advised pt to ask for CM if any further questions/concerns/needs arise, voices understanding. Pt Goal: Home Plan[place] CRISTIAN REDDY
[2019-04-01 11:57] LABS: Hematocrit 28.2 % (40-54); Hemoglobin 9.2 g/dL (13.0-16.5)
[2019-04-01] MEDS: Insulin Lispro 100 UNIT/ML INSULN.PEN SC (14:03)
--- NOTE | 2019-04-01 14:22 | NURSING ---
Walking in [place] at this time.
--- NOTE | 2019-04-01 14:30 | DCINST_ITS ---
You will use the following diet at home:: No restrictions Your food should be the consistency of: Regular Allergies/Adverse Reactions: Allergies No Known Allergies Allergy (Verified 03/03/19 14:56) Medications to take at Discharge metformin 500 mg tablet 500 mg PO BID 08/06/18 diltiazem CD 180 mg capsule,extended release 24 hr 180 mg PO DAILY #30 cap 08/17/18 Pantoprazole Sodium [Protonix] 40 mg PO DAILY #30 tab 03/27/19 Furosemide 40 mg PO QODAY 03/31/19 Sucralfate [Carafate] 1 gm PO ACHS 03/31/19 Primary Care Physician: Macho Solorio DO [Primary Care Provider] - Test Results: Test results from this visit will be discussed in further detail at your follow- up appointment, if applicable. Proposed Discharge Date: 04/01/19
--- NOTE | 2019-04-01 14:38 | PCM.DC.SUM ---
Discharge Date and Diagnosis - Problem List Patient Problems: Active and Suspected Problems (Last Reviewed 03/02/19 @ 11:08 by Pema Dean) Acute GI bleeding (Acute) Date of Admission: 03/31/19 Date of Discharge: 04/01/19 - Primary Discharge Diagnosis Active and Suspected Problems (Last Reviewed 03/02/19 @ 11:08 by Pema Dean) Acute GI bleeding (Acute) - Secondary Discharge Diagnosis Chronic Problems (Last Reviewed 03/02/19 @ 11:08 by Pema Dean) History of left heart catheterization (Chronic 12/29/17) Chronic kidney disease (Chronic) Diabetes mellitus type 2, uncontrolled (Chronic) History of aortic stenosis (Chronic) Diabetic neuropathy associated with type 2 diabetes mellitus (Chronic) Obstructive sleep apnea (Chronic) Patent foramen ovale (Chronic) Present on echo post TAVR procedure, [facility] [place] Presence of Watchman left atrial appendage closure device (Chronic 07/13/18) 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 Santo Dobbins @ [facility] History of esophageal cancer (Chronic) Chronic atrial fibrillation (Chronic) Chronic diastolic (congestive) heart failure (Chronic) Hyperlipidemia (Chronic) Non-rheumatic aortic stenosis (Chronic) Nicotine dependence (Chronic) Obesity (Chronic) [facility] (current) use of anticoagulants (Chronic) Hospital Course and Treatment Operations: None Summary of Care Provided: The patient is a 69 year old M notable comorbidities who presented with dizziness and significant drop in hemoglobin level. Patient had been discharged from the hospital 5 days prior to his readmission with upper GI bleed underwent EGD x2 was found to have nonbleeding ulcer at the GE junction as well as erosive gastritis he was previously on Coumadin and aspirin discontinued on discharge. Patient was also found to be symptomatic on admission was transfused 2 unit PRBC admitted to monitored bed consultation was placed the patient surgeon Dr. Jackson on admission who recommended for patient to be transferred to [facility] for subsequent evaluation. Call was placed patient was accepted for transfer Patient Problems: Active and Suspected Problems (Last Reviewed 03/02/19 @ 11:08 by Pema Dean) Acute GI bleeding (Acute) - Physical Exam HEENT: Atraumatic Neck: Supple Lungs: Normal air movement Cardiovascular: Irregular Rate Extremities: No clubbing Psych/Mental Status: Normal Affect Vital Signs Temp Pulse Resp BP Pulse Ox 97.6 F L 97 16 129/75 H 97 04/01/19 09:40 04/01/19 11:30 04/01/19 09:40 04/01/19 09:40 04/01/19 09:40 Oxygen Flow Rate (L/min) 1 Oxygen Delivery Method Room Air Weight: 91.626 kg Body Mass Index (BMI) 29.9 Intake and Output for Last 24 Hours 03/30/19 03/31/19 04/01/19 23:59 23:59 23:59 Intake Total 1045 / 1295 1120 / 1120 Balance 1045 / 1295 1120 / 1120 Laboratory Tests Past 24 Hrs 03/31/19 03/31/19 03/31/19 13:30 13:30 13:30 WBC RBC Hgb Hct MCV MCH MCHC RDW Std Deviation RDW Coeff of Rachell Plt Count MPV Immature Gran % (Auto) Neut % (Auto) Lymph % (Auto) [place] % (Auto) Eos % (Auto) Baso % (Auto) Absolute Neuts (auto) Absolute Lymphs (auto) Nucleated RBC % PT 17.2 H INR 1.4 Sodium Potassium Chloride Carbon Dioxide Anion Gap BUN Creatinine Estim Creat Clear Calc Est GFR (MDRD) Af Amer Est GFR (MDRD) Non-Af BUN/Creatinine Ratio Glucose Lactic Acid Calcium Urine Color Urine Clarity Urine pH Ur Specific [place] Urine Protein Urine Glucose (UA) Urine Ketones Urine Occult Blood Urine Nitrite Urine Bilirubin Urine Urobilinogen Ur Leukocyte Esterase Urine RBC Urine WBC Ur Squamous Epith Cells Urine Bacteria Urine Mucus Blood Type A NEGATIVE Antibody Screen NEGATIVE Crossmatch See Detail 03/31/19 03/31/19 04/01/19 14:10 14:50 03:30 WBC 8.3 RBC 3.00 L Hgb 9.2 L Hct 28.2 L MCV 94.0 MCH 30.7 MCHC 32.6 RDW Std Deviation 51.4 H RDW Coeff of Rachell 15.4 H Plt Count 193 MPV 11.2 Immature Gran % (Auto) 0.700 Neut % (Auto) 66.6 Lymph % (Auto) 19.8 [place] % (Auto) 10.1 H Eos % (Auto) 2.2 Baso % (Auto) 0.6 Absolute Neuts (auto) 5.5 Absolute Lymphs (auto) 1.64 Nucleated RBC % 0.2 PT INR Sodium Potassium Chloride Carbon Dioxide Anion Gap BUN Creatinine Estim Creat Clear Calc Est GFR (MDRD) Af Amer Est GFR (MDRD) Non-Af BUN/Creatinine Ratio Glucose Lactic Acid 1.4 Calcium Urine Color YELLOW Urine Clarity Clear Urine pH 5.0 Ur Specific [place] 1.015 Urine Protein 30 H Urine Glucose (UA) Normal Urine Ketones Negative Urine Occult Blood Negative Urine Nitrite Negative Urine Bilirubin Negative Urine Urobilinogen 4 H Ur Leukocyte Esterase Negative Urine RBC 0 SEEN Urine WBC 0 SEEN Ur Squamous Epith Cells 0 SEEN Urine Bacteria 0 SEEN Urine Mucus 0 SEEN Blood Type Antibody Screen Crossmatch 04/01/19 04/01/19 03:30 11:50 WBC RBC Hgb 9.2 L Hct 28.2 L MCV MCH MCHC RDW Std Deviation RDW Coeff of Rachell Plt Count MPV Immature Gran % (Auto) Neut % (Auto) Lymph % (Auto) [place] % (Auto) Eos % (Auto) Baso % (Auto) Absolute Neuts (auto) Absolute Lymphs (auto) Nucleated RBC % PT INR Sodium 139 Potassium 3.7 Chloride 104 Carbon Dioxide 33.0 H Anion Gap 2 L BUN 19 H Creatinine 0.79 Estim Creat Clear Calc 67.45 Est GFR (MDRD) Af Amer 126 Est GFR (MDRD) Non-Af 104 BUN/Creatinine Ratio 24.2 H Glucose 132 H Lactic Acid Calcium 8.1 L Urine Color Urine Clarity Urine pH Ur Specific [place] Urine Protein Urine Glucose (UA) Urine Ketones Urine Occult Blood Urine Nitrite Urine Bilirubin Urine Urobilinogen Ur Leukocyte Esterase Urine RBC Urine WBC Ur Squamous Epith Cells Urine Bacteria Urine Mucus Blood Type Antibody Screen Crossmatch POC Glucose 04/01/19 04/01/19 03/31/19 11:05 06:24 22:00 POC Glucose 155 H 130 H 132 H Discharge Diet: No Restrictions Home Medications: Medications to take at Discharge metformin 500 mg tablet 500 mg PO BID 08/06/18 diltiazem CD 180 mg capsule,extended release 24 hr 180 mg PO DAILY #30 cap 08/17/18 Pantoprazole Sodium [Protonix] 40 mg PO DAILY #30 tab 03/27/19 Furosemide 40 mg PO QODAY 03/31/19 Sucralfate [Carafate] 1 gm PO ACHS 08/29/19 Primary Care Physician: Macho Solorio DO [Primary Care Provider] - Disposition: Acute care Hospital - [facility] Medical Necessity - Tobacco Use Smoking Status: Former smoker Tobacco Use: Cigarettes, Cigars Meaningful Use Info Meaningful Use Diagnoses (Choose all that apply): None applicable Code Visit Inpatient E&M: 41533 Disch Hosp
--- NOTE | 2019-04-01 15:20 | NURSING ---
called report to [facility], Manpreet FOSTER
[2019-04-01 16:20] LABS: Bedside Glucose 110 mg/dL (70-110)
== END 2019-04-01 18:59 | disposition short-term general hospital (02) | DRG 378 ==
LOC: ED 16:36 → PCU 18:31
PROVIDERS: Admitting Provider Hospitalist; Emergency Provider Emergency Medicine; Family Provider Student in an Organized Health Care Education/Training Program; PCP Student in an Organized Health Care Education/Training Program; Visit Provider Internal Medicine
DX: K92.2 Gastrointestinal hemorrhage, unspecified (principal); I50.32 Chronic diastolic (congestive) heart failure; Q21.1 Atrial septal defect; D64.9 Anemia, unspecified; I48.2 Chronic atrial fibrillation; I35.0 Nonrheumatic aortic (valve) stenosis; E11.40 Type 2 diabetes mellitus with diabetic neuropathy, unspecified; E78.5 Hyperlipidemia, unspecified; G47.33 Obstructive sleep apnea (adult) (pediatric); Z95.3 Presence of xenogenic heart valve; Z79.84 Long term (current) use of oral hypoglycemic drugs; Z87.891 Personal history of nicotine dependence
CPT/HCPCS: 36415; 71045; 78278; 80048; 80053; 81001; 82962; 83605; 84484; 85014; 85018; 85025; 85610; 86850; 86900; 86901; 86920; 93005; 99285; A9560; J7030; J7040; P9016; A4216; J1940; J3490

== ENCOUNTER 2019-12-22 23:21 | Emergency (ER) | payer SELFPAY ==
[2019-09-15 13:36] VITALS: BMI 29.5
[2019-12-22 23:22] VITALS: BP 136/87; PULSE 89; RESP 18; TEMP 36.4; O2SAT 97; BMI 29.7
[2019-12-22 23:34] VITALS: BMI 29.7
[2019-12-22 23:40] VITALS: BP 113/69; PULSE 78; RESP 18; O2SAT 97
--- NOTE | 2019-12-22 23:48 | EKG12_ITS ---
Test Reason : DYSRHYTHMIA Blood Pressure : / mmHG Vent. Rate : 085 BPM Atrial Rate : 288 BPM P-R Int : 000 ms QRS Dur : 108 ms QT Int : 406 ms P-R-T Axes : 000 050 009 degrees QTc Int : 483 ms Atrial fibrillation Low voltage QRS Prolonged QT Abnormal ECG Confirmed by PINKY CUMMINS, MARICEL ([id number]), purchasing expeditor JET NEGRETE ([id number]) on 12/27/2019 3:23:59 PM Referred By: BRIAN Confirmed By:MARICEL VANCE MD
[2019-12-22 23:49] VITALS: BP 136/87; TEMP 36.4
--- NOTE | 2019-12-22 23:50 | CT_ITS ---
STUDY: CTA HEAD AND NECK WITH CONTRAST REASON FOR EXAM: Male, 69 years old. RT SIDED ARM AND LEG WEAKNESS-RESOLVED NOW -- HX:HTN,DIABETES RADIATION DOSAGE (If Supplied By Facility): CTDIvol = ( 29.26 ) mGy, DLP = ( 803.54 ) mGycm TECHNIQUE: CT angiography was performed with a multi-detector CT scanner. Data acquisition was obtained from the skull base through the vertex following intravenous administration of 100 ML ISOVUE 370. MIP images were reconstructed from the axial data set. Post-processing of the angiographic images was performed, with multiplanar reformation and 3D reconstruction. Individualized dose optimization techniques were used for this CT. COMPARISON: No relevant priors. FINDINGS: Normal right petrous carotid artery. There is calcified plaque formation of the right cavernous carotid artery, with a mild stenosis (less than 50%). There is occlusion of the left petrous and cavernous carotid arteries. Normal right A1 segments of the anterior cerebral artery. Normal left A1 segments of the anterior cerebral artery. Normal intact anterior communicating artery (ACOM). Normal bilateral A2 segments of the anterior cerebral arteries. Normal right M1 and M2 segments of the middle cerebral arteries, with a normal M1 bifurcation. The left M1 and M2 segments of the middle cerebral artery appear patent likely reconstituted from the anterior posterior communicating arteries. Normal right posterior communicating artery (PCOM). Normal left posterior communicating artery (PCOM). Normal bilateral vertebral arteries. Normal basilar artery with a normal basilar bifurcation. The visualized bilateral superior cerebellar (SCA) arteries are normal. Normal bilateral P1, P2 and visualized P3 segments of the posterior cerebral arteries. There is no demonstrated aneurysm of the [place]. Please see dedicated CT brain performed December 22, [address] angiogram of the head. There is nonspecific subcentimeter short axis cervical chain lymph nodes present. AORTIC ARCH: There is atherosclerotic calcific plaque formation of the aortic arch and great vessels arising from the aortic arch, without a hemodynamically significant stenosis. There is a normal origin of the brachiocephalic, left common carotid, and left subclavian arteries RIGHT CAROTID ARTERIES: Normal right common carotid artery (CCA). Normal right common carotid bulb. There is mild atherosclerotic plaque formation of the origin of the right internal carotid artery with less than 50% cross sectional diameter stenosis. Normal visualized cervical portion of the right internal carotid artery. Normal origin of the right external carotid artery (ECA). LEFT CAROTID ARTERIES: Normal left common carotid artery (CCA). There is moderate atherosclerotic plaque formation with moderate narrowing of the carotid bulb. There is complete occlusion of the origin of the left internal carotid artery without demonstrated arterial flow. Occlusion of the cervical carotid internal artery. Normal origin of the left external carotid artery (ECA). VERTEBRAL ARTERIES: Normal bilateral vertebral arteries. Emphysematous changes within the lungs. There are degenerative changes of the spine. However cannot evaluate for fracture as the coronal and sagittal reformats were performed utilizing MIP reconstruction, this is performed to evaluate the vasculature and not other structures. Evaluation of the osseous structures is limited on the coronal and sagittal imaging. There is degenerative changes noted. There is no displaced fractures seen on the axial images. CT/CTA Head AND Neck W/ Contrast IMPRESSION: Occlusion of the left internal carotid artery origin. The occlusion extends through the cervical carotid artery. There is occlusion/no flow identified within the cavernous and petrous left internal carotid arteries. There is flow identified within the M1 and A1 branch is likely reconstituted from the [place]. Other findings as discussed above. N.B. : Ramirez Zamarripa MD, confirmed on 12/23/2019 00:31:31 (ET) that the referring physician received the results and does not require a verbal communication. Electronically Signed: Faisal Vyas, at 0:33 EDT Tel , Service support ,
--- NOTE | 2019-12-22 23:55 | CT_ITS ---
We are attempting to reach an attending provider to discuss findings. An addendum with communication details will be sent when the communication is complete. STUDY: CT BRAIN WITHOUT CONTRAST REASON FOR EXAM: Male, 69 years old. RT SIDED WEAKNESS, HX DM, HTN RADIATION DOSAGE (If Supplied By Facility): CTDIvol = ( 44.99 ) mGy, DLP = ( 812.98 ) mGycm TECHNIQUE: Transaxial CT imaging of the brain was performed without administration of intravenous contrast material. Individualized dose optimization techniques were used for this CT. COMPARISON: No relevant priors. FINDINGS: Normal soft tissue structures. Normal calvarium. There is mild cerebral atrophy with widening of the extra-axial spaces and ventricular dilatation. There are areas of decreased attenuation within the white matter tracts of the supratentorial brain, consistent with microvascular disease changes. Low-attenuation 7 mm inferior left basal ganglia may represent prior lacunar infarct, dilated perivascular space or choroid fissure cyst. Low-attenuation left thalamus age-indeterminate infarct. Normal brainstem. Normal cerebellum. There is no intracranial hemorrhage. There are no findings of an acute large territorial ischemic infarction. Paranasal sinus disease. Carotid and vertebral artery calcifications. CT/Brain/Head without Contrast IMPRESSION: Chronic involutional and white matter changes are present. There is a small area of low attenuation noted within the left thalamus which may represent age-indeterminate infarct. There is no acute intracranial hemorrhage or large acute territorial infarct identified. If patient''s symptomology persists or there is continuing clinical concern MRI or follow-up CT scan can be performed. Paranasal sinus disease. Electronically Signed: Faisal Vyas, at 0:09 EDT Tel , Service support ,
--- NOTE | 2019-12-22 23:55 | ED.RN ---
[id number] [facility] computer compositor CALLED AND SPOKE TO DR ACEVEDO.
--- NOTE | 2019-12-22 23:58 | ED.VISSUMM ---
- ER Visit Summary Date of Service: 12/22/19 Chief Complaint: Right-sided weakness History of Present Illness: The patient is a 69 M who presents with right-sided weakness that began today. states this occurred at approximately 2145 tonight. states this lasted for approximately 10 minutes then resolved. states patient had a second episode a few minutes later that again lasted approximately 10 minutes and resolved. Patient states his right side of his face was weak as well as his right upper and right lower extremities. states the patient was slurring his speech. Patient admits to some nausea but denies any vomiting. Patient denies any chest pain or palpitations. Patient denies any headaches. Patient states he has been on aspirin in the past but was stopped due to a bleeding peptic ulcer. Physical Examination: Vital signs are stable. Patient is afebrile. Patient is in no acute distress. Cranial nerves II through XII are intact. Strength is 5/5 bilateral in the upper and lower extremities. There are no sensory deficits noted. Pupils are equal, round, and reactive to light bilaterally. Extraocular muscles are intact. Conjunctiva is clear. There are no visual deficits noted. Oral mucosa is pink and moist. Neck is supple. Trachea is midline. There is no JVD. Heart was irregularly irregular. Lungs are clear and equal bilaterally. Abdomen is soft. Bowel sounds are normal. There is no tenderness. Extremities are intact. There is no calf tenderness or edema. Test Results: CT scan of the brain showed chronic changes. There is a small area of low attenuation in the left thalamus which may represent an age indeterminate infarct. There is no acute hemorrhage. CTA of the head and neck was obtained. There is occlusion of the left internal carotid origin. The occlusion extends through the cervical carotid artery. There is occlusion/no flow identified within the cavernous and petrous left internal carotid arteries. There is flow in the M1 and A1 branches likely from collateral flow through the [place]. Portable chest x-ray shows elevation of the left hemidiaphragm. There is no acute cardiopulmonary process. These were all interpreted by the radiologist and reviewed by myself. EKG showed atrial fibrillation with a rate of 85. There are no acute ST or T wave changes. This was unchanged compared to previous EKG dated 03/31/2019. CBC shows a slight anemia with a hemoglobin of 12.9 and hematocrit 39.7. Basic metabolic profile showed a slightly elevated BUN of 24. PT with INR was within normal limits. PTT was normal. Troponin was normal. Emergency Department Course and Treatment: Stroke team was activated. Since the patient NIH is 0, thrombolytics are not indicated at this time. However, patient has a large vessel occlusion of his left internal carotid artery. Patient will require referral to tertiary care center for further intervention. Patient states he has been to the [facility] in the past and would prefer to go there. Case was discussed with Dr. Major at [facility]. He felt that the patient will be able to be cared for at [facility]. Case was discussed with Dr. Foote at [facility]. Patient will be transferred there. Patient and family are agreeable to this. All questions were answered. Disposition: Transfer to [facility] Impression: 1. Stroke 2. Occlusion left internal carotid artery This note was generated with [employer] dictation software. It may contain incorrect words, spelling, and punctuation that were not noted in review of the chart prior to signing ED Disposition - Plan for ED Patient: Disposition: [facility] Diagnosis: Stroke, Occlusion of left internal carotid artery Referrals: Macho Solorio DO [Primary Care Provider] -
[2019-12-23] LABS: Absolute Lymphocyte Count 1.68 X10^3/uL (0.83-4.51); Basophil# 0.03 X10^3/uL; Basophil% 0.5 % (0-1); Eosinophil# 0.15 X10^3/uL; Eosinophils% 2.7 % (0-5); Hematocrit 39.7 % (40-54); Hemoglobin 12.9 g/dL (13.0-16.5); Lymphocyte # 1.68 X10^3/ul (4.0); Lymphocyte % 29.7 % (19-41); Mean Corp Hgb Conc 32.5 g/dL (32-36); Mean Corpuscular Hgb 29.7 pg (27.0-32.0); Mean Corpuscular Volume 91.3 fL (80-94); Mean Platelet Vol. 12.2 fl (6.2-12.0); Monocyte# 0.76 X10^3/uL; Monocyte% 13.5 % (0-10); NRBC Flagged by Analyzer 0 % (0-5); Neutrophil # 3.03 X10^3/uL (2.7-7.7); Neutrophil % 53.6 % (47-70); Platelet Count 188 K/mm3 (150-450); RBC Distribution Width CV 17.2 % (11.6-14.6); RBC Distribution Width SD 57.7 fl (35.1-43.9); Red Blood Count 4.35 M/mm3 (4.6-6.2); White Blood Count 5.7 K/mm3 (4.4-11.0)
[2019-12-23 00:05] LABS: International Normalized Ratio 1.3; Prothrombin Time (Protime)PT. 15.3 SECONDS (11.7-14.9)
[2019-12-23 00:10] VITALS: BP 118/83; PULSE 83; RESP 18; O2SAT 98
[2019-12-23 00:12] LABS: Partial Thromboplast Time 32.7 Seconds (24.1-36.2)
[2019-12-23 00:15] LABS: Anion Gap 3 (5-15); BUN 24 mg/dL (7-18); BUN/Creat Ratio 22.4 RATIO (10-20); Calcium,Total 8.8 mg/dL (8.5-10.1); Chloride 103 mmol/L (98-107); Creatinine, Serum 1.07 mg/dL (0.70-1.30); EST Glomerular Filtration Rate 73 mL/min (>60); Est Glom Filt Rate - Afr Amer 88 mL/min (>60); Estimated Creatinine Clearance 65.16 ml/min; Glucose 122 mg/dL (74-106); Potassium 4.2 mmol/L (3.5-5.1); Sodium Level 137 mmol/L (136-145)
--- NOTE | 2019-12-23 00:20 | RAD_ITS ---
STUDY: X-RAY CHEST REASON FOR EXAM: Male, 69 years old. CVA, right sided weakness TECHNIQUE: Single frontal view of the chest. COMPARISON: March 31, 2019. FINDINGS: No pneumothorax identified. Again noted nonspecific elevation left hemidiaphragm. Mild pulmonary vascular congestion. There is decreased however residual left pleural effusion and/or pleural thickening. Adjacent atelectasis/infiltrate. No new focal pulmonary opacity identified. Cardiomegaly. Aortic calcifications. There are diffuse degenerative changes of the visualized thoracic spine. There is degenerative osteoarthritis of the bilateral shoulders. There is no demonstrated abnormality of the visualized soft tissue structures of the upper abdomen. RAD/Chest 1 View IMPRESSION: Again noted cardiomegaly. Mild pulmonary vascular congestion. Again noted elevation of the left hemidiaphragm, nonspecific. There is mild blunting left costophrenic angle which is decreased from prior study and may represent residual small effusion and/or pleural thickening. Compared to prior study decreasing left adjacent atelectasis/infiltrate. There is no new focal pulmonary opacity identified. Electronically Signed: Faisal Vyas, at 0:47 EDT Tel , Service support ,
[2019-12-23 00:40] VITALS: BP 120/74; PULSE 80; RESP 18; O2SAT 97
[2019-12-23 01:10] VITALS: BP 124/77; PULSE 78; RESP 18; O2SAT 99
[2019-12-23 01:30] VITALS: BP 131/77; PULSE 82; RESP 21; O2SAT 95
[2019-12-23 02:12] VITALS: BP 130/85; PULSE 81; RESP 21
== END 2019-12-23 02:49 | disposition short-term general hospital (02) ==
LOC: ED 12-23 02:22
PROVIDERS: Emergency Provider Emergency Medicine; PCP Student in an Organized Health Care Education/Training Program
DX: I63.232 Cerebral infarction due to unspecified occlusion or stenosis of left carotid arteries (principal); G81.91 Hemiplegia, unspecified affecting right dominant side; R29.810 Facial weakness; R05 Cough; E11.9 Type 2 diabetes mellitus without complications; I50.9 Heart failure, unspecified; I48.91 Unspecified atrial fibrillation; C80.1 Malignant (primary) neoplasm, unspecified; C78.89 Secondary malignant neoplasm of other digestive organs; Z79.891 Long term (current) use of opiate analgesic; Z79.84 Long term (current) use of oral hypoglycemic drugs
CPT/HCPCS: 70450; 70496; 70498; 71045; 80048; 84484; 85025; 85610; 85730; 93005; 99285; Q9967

== ENCOUNTER 2021-10-14 13:14 | Outpatient (CLI) | payer SELFPAY ==
--- NOTE | 2021-10-14 13:39 | ECHOCS_ITS ---
Reason For Study: Valve Replacement Eval Procedure This was a 2D Doppler, Color Flow transthoracic echocardiogram. The study was technically difficult. Contrast injection was performed. Exam performed in department. Left Ventricle Normal LV size. Left ventricular systolic function is normal. The estimated ejection fraction is 65 %. Unable to assess diastolic dysfunction. No regional wall motion abnormalities noted. Right Ventricle Mildly dilated right ventricle. Normal systolic function. Atria The left atrium is severely enlarged. The right atrium is severely enlarged. No doppler evidence for ASD. Mitral Valve There is mild mitral annular calcification. Extension of the mitral annular calcification on the base of the mitral valve leaflets. Moderate (2+) mitral valve insufficiency. Tricuspid Valve Normal tricuspid valve. Mild tricuspid valve insufficiency. Right ventricular systolic pressure estimated to be 45 mmHg. Aortic Valve Stable appearing bioprosthetic aortic valve apparatus. Pulmonic Valve The pulmonic valve is not well visualized. Trivial pulmonic valve insufficiency. Great Vessels Normal sized aortic root. Pericardium/Pleural No pericardial effusion. Medication Diluted definity 3ml given slow IV push to enhance endocardial definition. MMode/2D Measurements & Calculations LVIDd: 4.4 cm IVSd: 1.1 cm LVOT diam: 2.0 cm LVIDs: 3.1 cm LVPWd: 1.2 cm RVDd: 3.1 cm FS: 30.6 % LVOT area: 3.0 cm2 Ao root diam: 2.5 cm LAV(MOD-bp): 105.2 ml LVAd ap4: 25.6 cm2 LAV(MOD-bp) Indexed: 52.0 ml/m2 LVLd ap4: 6.7 cm LAV(MOD-sp2): 104.7 ml EDV(MOD-sp4): 79.8 ml LAV(MOD-sp4): 96.3 ml EDV(sp4-el): 82.6 ml LVAs ap4: 15.1 cm2 LVLs ap4: 5.9 cm ESV(MOD-sp4): 31.2 ml ESV(sp4-el): 32.6 ml EF(MOD-sp4): 60.8 % EF(sp4-el): 60.5 % SV(MOD-sp4): 48.5 ml SV(sp4-el): 50.0 ml LA A4 area: 30.1 cm2 LA dimension(2D): 7.1 cm RA A4 area: 38.3 cm2 Doppler Measurements & Calculations MV E max miguel: 133.9 cm/sec Ao V2 max: 218.2 cm/sec LV V1 max: 131.2 cm/sec Ao max P.1 mmHg LV V1 max P.3 mmHg Ao V2 mean: 152.0 cm/sec LV V1 mean P.2 mmHg Ao mean P.2 mmHg LV V1 mean: 95.1 cm/sec Ao V2 VTI: 38.8 cm LV V1 VTI: 25.1 cm ABDIRASHID(I,D): 2.0 cm2 ABDIRASHID(V,D): 1.8 cm2 SV(LVOT): 75.9 ml PA V2 max: 73.9 cm/sec TR max miguel: 304.3 cm/sec TR max P.0 mmHg ECHO/Echo Complete W/ Contrast Interpretation Summary The study was technically difficult. Contrast injection was performed. Left ventricular systolic function is normal. The estimated ejection fraction is 65 %. Mildly dilated right ventricle. The left atrium is severely enlarged. The right atrium is severely enlarged. There is mild mitral annular calcification. Extension of the mitral annular calcification on the base of the mitral valve l eaflets. Moderate (2+) mitral valve insufficiency. Mild tricuspid valve insufficiency. Stable appearing bioprosthetic aortic valve apparatus. Trivial pulmonic valve insufficiency. Right ventricular systolic pressure estimated to be 45 mmHg. Unable to assess diastolic dysfunction. Ordering Physician: Rudolph Flores Referring Physician: Macho Solorio Performed By: Concha Allen, RDCS, RVT
--- NOTE | 2021-10-14 14:52 | RAD_ITS ---
History: COUGH EXAMINATION/TECHNIQUE: XR Chest 2 Views: COMPARISON: December 23, 2019 FINDINGS: LINES/DEVICES: Aortic valve prosthesis remains in place. LUNGS: Small left pleural effusion with left basilar atelectasis. No pneumothorax. MEDIASTINUM AND CARDIOVASCULAR STRUCTURES: Stable mild cardiomegaly. Central airways and mediastinal contour are unremarkable. Elevation of the left hemidiaphragm. BONES AND SOFT TISSUES: Unremarkable. RAD/Chest PA and Lateral IMPRESSION: Small left pleural effusion and left basilar atelectasis. at 1531 Reported and signed by: Jacques Astorga MD Electronically Signed: Jacques Astorga MD at 15:30 EDT ,
== END 2021-10-14 23:59 | disposition home or self-care (01) ==
PROVIDERS: PCP Student in an Organized Health Care Education/Training Program; Referring Provider Internal Medicine Cardiovascular Disease; Visit Provider Internal Medicine Cardiovascular Disease
DX: R05.9 Cough, unspecified (principal); Z95.2 Presence of prosthetic heart valve
CPT/HCPCS: 71046; 93306; Q9957; A4216; C8929

== ENCOUNTER 2021-10-23 12:51 | Outpatient (CLI) | payer SELFPAY ==
[2021-10-23 14:11] LABS: Anion Gap 4 (5-15); BUN 34 mg/dL (7-18); BUN/Creat Ratio 28.1 RATIO (10-20); Calcium,Total 9.6 mg/dL (8.5-10.1); Chloride 96 mmol/L (98-107); Creatinine, Serum 1.21 mg/dL (0.70-1.30); EST Glomerular Filtration Rate 63 mL/min (>60); Est Glom Filt Rate - Afr Amer 76 mL/min (>60); Glucose 138 mg/dL (74-106); Sodium Level 135 mmol/L (136-145)
== END 2021-10-23 23:59 | disposition home or self-care (01) ==
PROVIDERS: PCP Student in an Organized Health Care Education/Training Program; Visit Provider Internal Medicine Cardiovascular Disease
DX: J90 Pleural effusion, not elsewhere classified (principal); I50.32 Chronic diastolic (congestive) heart failure; Z95.2 Presence of prosthetic heart valve
CPT/HCPCS: 36415; 80048

== ENCOUNTER 2021-10-28 09:38 | Outpatient (CLI) | payer SELFPAY ==
--- NOTE | 2021-10-28 09:43 | RAD_ITS ---
STUDY: X-RAY CHEST REASON FOR EXAM: Male, 71 years old. Pleural effusion. Follow-up. TECHNIQUE: PA and lateral views of the chest. COMPARISON: 10/14/2021. FINDINGS: Continued elevation of the left hemidiaphragm. Blunting left costophrenic angle consistent with small pleural effusion. The lungs are otherwise clear. Normal size heart. Normal mediastinum and ines. Normal visualized pulmonary arteries. There is atherosclerotic calcification of the aortic arch with tortuosity. There are diffuse degenerative changes of the visualized thoracic spine. There is degenerative osteoarthritis of the bilateral shoulders. There is no demonstrated abnormality of the visualized soft tissue structures of the upper abdomen. RAD/Chest PA and Lateral IMPRESSION: Elevated left hemidiaphragm with persistent small pleural effusion. There is no major interval change Electronically Signed: Francisco Simmons DO at 23:57 EDT ,
== END 2021-10-28 23:59 | disposition home or self-care (01) ==
PROVIDERS: PCP Student in an Organized Health Care Education/Training Program; Visit Provider Internal Medicine Cardiovascular Disease
DX: J90 Pleural effusion, not elsewhere classified (principal); I50.32 Chronic diastolic (congestive) heart failure
CPT/HCPCS: 71046

== ENCOUNTER → 2021-12-06 | Outpatient (CLI) | payer SELFPAY ==
--- NOTE | 2021-12-06 14:50 | CT_ITS ---
STUDY: CT CHEST WITHOUT CONTRAST REASON FOR EXAM: Male, 71 years old. PLEURAL EFFUSION RADIATION DOSAGE (If Supplied By Facility): CTDIvol = ( 14.27 ) mGy, DLP = ( 527.57 ) mGycm TECHNIQUE: Transaxial imaging was performed without the administration of intravenous contrast material. Individualized dose optimization techniques were used for this CT. COMPARISON: Comparison is made with prior chest radiograph dated 10/28/2021. FINDINGS: CHEST Tiny left pleural effusion. Minimal left basilar atelectasis. There is a 1.9 cm x 1.8 cm nodular density in the anterior lateral aspect of the left upper lobe as seen on axial image #56 and coronal image #88. A neoplastic process should be ruled out. Correlation with the PET scan is recommended. Calcified granuloma in the posterior segment of the right lower lobe. There is no demonstrated pleural abnormality. There are calcifications of the coronary arteries. Prosthetic aortic valve. There are multiple small lymph nodes within the mediastinum, which are normal in size and morphology most compatible with reactive lymph hyperplasia. Normal hilar regions. Normal unenhanced pulmonary arteries. There is atherosclerotic calcification of the aortic arch with tortuosity and elongation of the aortic arch and descending thoracic aorta. There are multi-level degenerative changes of the thoracic spine. There is approximately 50% loss of height of a mid dorsal vertebra. Left adrenal hyperplasia. Increased markings in the left perinephric region. Calcified splenic granulomas. CT/Chest without Contrast IMPRESSION: 1.9 cm x 1.8 cm nodular density in the anterior lateral aspect of left upper lobe as seen on axial image #56. Correlation with a PET scan is recommended. Tiny left pleural effusion. Loss of height of a mid dorsal vertebrae. Electronically Signed: Richie Weir MD at 15:21 EDT ,
== END | disposition home or self-care (01) ==
LOC: CT 14:40
PROVIDERS: PCP Student in an Organized Health Care Education/Training Program; Referring Provider Student in an Organized Health Care Education/Training Program; Visit Provider Student in an Organized Health Care Education/Training Program
DX: J90 Pleural effusion, not elsewhere classified (principal)
CPT/HCPCS: 71250

== ENCOUNTER → 2021-12-23 | Outpatient (CLI) | payer SELFPAY ==
[2021-12-23 14:23] LABS: Anion Gap 4 (5-15); BUN 34 mg/dL (7-18); BUN/Creat Ratio 22.7 RATIO (10-20); Calcium,Total 9.4 mg/dL (8.5-10.1); Chloride 97 mmol/L (98-107); EST Glomerular Filtration Rate 49 mL/min (>60); Est Glom Filt Rate - Afr Amer 59 mL/min (>60); Glucose 247 mg/dL (74-106); Potassium 4.3 mmol/L (3.5-5.1); Sodium Level 132 mmol/L (136-145)
[2021-12-23 14:51] LABS: Hemoglobin A1c 7.3 % (3.8-5.6)
== END | disposition home or self-care (01) ==
LOC: LAB 13:32
PROVIDERS: PCP Student in an Organized Health Care Education/Training Program; Visit Provider Student in an Organized Health Care Education/Training Program
DX: E11.65 Type 2 diabetes mellitus with hyperglycemia (principal); Z79.899 Other long term (current) drug therapy
CPT/HCPCS: 36415; 80048; 83036

== ENCOUNTER → 2022-02-12 | Outpatient (CLI) | payer SELFPAY, OTHER ==
[2022-02-12 09:48] VITALS: PULSE 105; PULSE 106; PULSE 111; PULSE 64; PULSE 76; PULSE 90; PULSE 96; PULSE 97; O2SAT 90; O2SAT 92; O2SAT 94; O2SAT 96; O2SAT 97
--- NOTE | 2022-02-12 09:50 | CPS ---
Readjusted pulse oximeter at the 3rd minute due to not getting an adequate reading. Light blinking yellow on pulse oximeter. Placed on a different finger while patient continued walking. Patient complained of some back and hip pain starting the 4th minute but only slight shortness of breath that he felt was normal for walking.
--- NOTE | 2022-02-13 10:05 | PFT ---
INTRODUCTION: The patient is a 71-year-old male that presents for pulmonary function studies secondary to a diagnosis of dyspnea. Respiratory therapy reported good patient effort. Bronchodilators were used during testing. INTERPRETATION: Forced expiration spirometry demonstrates no evidence of a large airways obstructive ventilatory defect with a postbronchodilator FEV1/FVC of 73%. There was no significant response to aerosolized bronchodilators. Spirograms are of good quality and plateau normally. Body plethysmography was performed and reveals a decreased TLC to 4.74 L, 73% of predicted, indicative of a mild restrictive ventilatory impairment. Diffusing capacity by single breath CO is reduced at 61% of predicted. IMPRESSION: Mild restrictive ventilatory impairment with symmetric reduction in diffusing capacity.
--- NOTE | 2022-02-13 10:07 | PCM.PSN.6M ---
PSN 6 Minute Walk Test 6 Minute Walk Test 6 Minute Walk Test: 6 Minute Walk Test PSN:6-Minute Walk Test Start: 02/12/22 09:48 Freq: Status: Active Protocol: RESP.6MINW Document 02/12/22 09:48 KIM (Rec: 02/12/22 10:00 KIM [id number]) 6 Minute Walk Test Date Performed 02/12/22 Time Performed 09:15 Height 5 ft 10 in Weight: 190 lb Weight in Pounds 190.[address]: Isidoro Cordoba Assistive device used: None Pre-test Oxygen Delivery Method Room Air Pulse Ox (%) 96 Pulse Rate (60-100 beats/min) 64 Dyspnea Ravindra Scale (0-10) 0 Exertion Ravindra Scale (6-20) 6 1st minute Oxygen Delivery Method Room Air Pulse Ox (%) 94 Pulse Rate (60-100 beats/min) 97 2nd minute Oxygen Delivery Method Room Air Pulse Ox (%) 92 Pulse Rate (60-100 beats/min) 96 3rd minute Oxygen Delivery Method Room Air Pulse Ox (%) 90 Pulse Rate (60-100 beats/min) 90 4th minute Oxygen Delivery Method Room Air Pulse Ox (%) 94 Pulse Rate (60-100 beats/min) 106 H 5th minute Oxygen Delivery Method Room Air Pulse Ox (%) 94 Pulse Rate (60-100 beats/min) 105 H 6th minute Oxygen Delivery Method Room Air Pulse Ox (%) 97 Pulse Rate (60-100 beats/min) 111 H Dyspnea Ravindra Scale (0-10) 1 Exertion Ravindra Scale (6-20) 14 Post-test Oxygen Delivery Method Room Air Pulse Ox (%) 96 Pulse Rate (60-100 beats/min) 76 Full Laps Walked 16 Partial Lap, Number of Tiles Walked 45 Total Distance Walked (ft) 989 02/12/22 09:50 Cardiopulmonary Services by Luba Gonzales Readjusted pulse oximeter at the 3rd minute due to not getting an adequate reading. Light blinking yellow on pulse oximeter. Placed on a different finger while patient continued walking. Patient complained of some back and hip pain starting the 4th minute but only slight shortness of breath that he felt was normal for walking. Initialized on 02/12/22 09:50 - END OF NOTE Interpretation Interpretation: The patient ambulated 989 feet over the course of 6 minutes beginning on room air without assistive devices. Pretesting oxygen saturation was noted to be 96% on room air. With ambulation, the anh oxygen saturation was 90%. This represents a significant exertional oxygen desaturation. Recommendations Recommendations: There is no indication for the use of supplemental oxygen at this time. However, close interval follow-up is recommended, given the degree of oxygen desaturation noted during this study.
== END | disposition home or self-care (01) ==
PROVIDERS: PCP Student in an Organized Health Care Education/Training Program; Referring Provider Internal Medicine Critical Care Medicine; Visit Provider Internal Medicine Critical Care Medicine
DX: R06.00 Dyspnea, unspecified (principal)
CPT/HCPCS: 94060; 94618; 94726; 94729

== ENCOUNTER → 2022-03-19 | Outpatient (CLI) | payer SELFPAY ==
--- NOTE | 2022-03-19 14:04 | CT_ITS ---
INDICATION: MOIRA nodule EXAMINATION: CT CHEST WITHOUT CONTRAST - CT Chest W/O Contrast Injection TECHNIQUE: Helically acquired images were obtained of the chest. A radiation dose optimization technique was used for this scan. IV Contrast dosage and agent: None. COMPARISON: 12/06/2021. FINDINGS: LUNGS, PLEURA AND LARGE AIRWAYS: The opacifications are visualized in the anterolateral aspect of the left upper lobe in the prior study are not seen on today''s study, improved aeration visualized at this location. Focal consolidation visualized in the inferomedial left lower lobe, this demonstrates decrease in comparison to the prior study. Mild prominence of the bronchovascular interstitial lung markings is visualized. No evidence of focal lung infiltrate or consolidation. Bronchial wall thickening is seen but no evidence of endobronchial or endotracheal lesion is seen. No evidence of pneumothorax or parenchymal contusion. No evidence of pleural effusion is seen. THYROID: No thyroid lesions. HEART AND PERICARDIUM: Mild cardiomegaly is visualized. Cardiac valvular prosthesis are seen.. No pericardial effusion. Coronary artery calcifications seen; calcifications visualized in approximately 1/3-2/3 of the left anterior descending artery. Calcifications visualized in less than one third of the left circumflex coronary artery. Subtle calcification visualized in the proximal right coronary artery. VESSELS: Atherosclerotic calcifications visualized in the aortic arch, no evidence of aneurysmal dilatation or arterial dissection is seen. Mild prominence of the ascending aorta measuring 4.0 cm. MEDIASTINUM AND MONTSERRAT: Prominent mediastinal and hilar adenopathy. Esophagus is unremarkable. No hiatal hernia. UPPER ABDOMEN: No acute pathology. Elevation of the left hemidiaphragm is visualized. BONES: No suspicious lytic or blastic abnormality. CT/Chest without Contrast IMPRESSION: Negative complete resolution of the previously visualized left upper lobe densities. Consolidation in the left lower lobe demonstrates decrease in comparison to the prior study. No evidence of parenchymal lung nodules or masses. Hilar mediastinal lymphadenopathy is seen. Electronically Signed: Usama Ambrosio MD at 17:04 EDT Reading Location ID and State: [facility] / [place] Tel , Service support ,
== END | disposition home or self-care (01) ==
PROVIDERS: PCP Student in an Organized Health Care Education/Training Program; Referring Provider Internal Medicine Critical Care Medicine; Visit Provider Internal Medicine Critical Care Medicine
DX: R91.1 Solitary pulmonary nodule (principal)
CPT/HCPCS: 71250

== ENCOUNTER → 2023-02-17 | Outpatient (CLI) | payer OTHER, SELFPAY ==
[2023-02-17 12:01] LABS: Absolute Lymphocyte Count 1.67 X10^3/uL (0.83-4.51); Absolute Neutrophil Count 6.6 X10^3/uL (2.0-7.7); Basophil# 0.06 X10^3/uL; Basophil% 0.6 % (0-1); Eosinophil# 0.05 X10^3/uL; Eosinophils% 0.5 % (0-5); Hematocrit 36.3 % (40-54); Hemoglobin 11.3 g/dL (13.0-16.5); Lymphocyte # 1.67 X10^3/ul (0.83-4.51); Lymphocyte % 17.3 % (19-41); Mean Corp Hgb Conc 31.1 g/dL (32-36); Mean Corpuscular Hgb 29.4 pg (27.0-32.0); Mean Corpuscular Volume 94.5 fL (80-94); Mean Platelet Vol. 11.2 fl (6.2-12.0); Monocyte# 1.25 X10^3/uL; Monocyte% 12.9 % (0-10); NRBC Flagged by Analyzer 0 % (0-5); Neutrophil # 6.59 X10^3/uL (2.7-7.7); Neutrophil % 68.2 % (47-70); Platelet Count 324 K/mm3 (150-450); RBC Distribution Width CV 17.5 % (11.6-14.6); RBC Distribution Width SD 59.6 fl (35.1-43.9); Red Blood Count 3.84 M/mm3 (4.6-6.2); White Blood Count 9.7 K/mm3 (4.4-11.0)
[2023-02-17 12:31] LABS: BNP,B-Type NATRIURETIC PEPTIDE 488.1 pg/mL (0-100)
[2023-02-17 12:46] LABS: ALB/GLOB Ratio 0.4 RATIO (0.9-2.4); AST(SGOT) 19 U/L (15-37); Alanine Aminotransfer ALT/SGPT 15 U/L (16-61); Albumin, Serum 2.4 g/dL (3.2-5.0); Alkaline Phosphatase 94 U/L (45-117); Anion Gap 2 (5-15); BUN 31 mg/dL (7-18); BUN/Creat Ratio 25.2 RATIO (10-20); Calcium,Total 8.6 mg/dL (8.5-10.1); Chloride 97 mmol/L (98-107); Creatinine, Serum 1.23 mg/dL (0.70-1.30); EST Glomerular Filtration Rate 61 mL/min (>60); Est Glom Filt Rate - Afr Amer 74 mL/min (>60); Globulin 6.3 g/dL (2.2-4.2); Glucose 184 mg/dL (74-106); Potassium 4.2 mmol/L (3.5-5.1); Protein, Total 8.7 g/dL (6.4-8.2); Sodium Level 134 mmol/L (136-145); Thyroid Stim Hormone (TSH) 1.82 uIU/mL (0.358-3.74)
== END | disposition home or self-care (01) ==
PROVIDERS: PCP Internal Medicine; Referring Provider Physician Assistant Medical; Visit Provider Physician Assistant Medical
DX: R53.83 Other fatigue (principal); I48.20 Chronic atrial fibrillation, unspecified; Q21.10 Atrial septal defect, unspecified; E78.5 Hyperlipidemia, unspecified; Z95.2 Presence of prosthetic heart valve; Z95.818 Presence of other cardiac implants and grafts
CPT/HCPCS: 36415; 80053; 83880; 84443; 85025

== ENCOUNTER → 2023-02-19 | Outpatient (CLI) | payer OTHER, SELFPAY ==
[2023-02-19 11:04] LABS: Hemoglobin A1c 7.4 % (3.8-5.6)
[2023-02-19 11:12] LABS: Vitamin B12 1034 pg/mL (211-911); Vitamin D,25 Hydroxy 43.9 ng/mL
== END | disposition home or self-care (01) ==
PROVIDERS: PCP Internal Medicine; Referring Provider Internal Medicine; Visit Provider Internal Medicine
DX: R73.9 Hyperglycemia, unspecified (principal); E55.9 Vitamin D deficiency, unspecified
CPT/HCPCS: 36415; 82306; 82607; 83036

== ENCOUNTER → 2023-02-27 | Outpatient (CLI) | payer SELFPAY, OTHER ==
--- NOTE | 2023-02-27 12:26 | ECHOD_ITS ---
Reason For Study: DYSPNEA Procedure This was a 2D Doppler, Color Flow transthoracic echocardiogram. Exam performed in department. Left Ventricle Normal LV size. Left ventricular systolic function is normal. The estimated ejection fraction is 60 %. No regional wall motion abnormalities noted. Right Ventricle Normal RV size. Normal systolic function. Atria The left atrium is severely enlarged. The right atrium is moderately enlarged. Mitral Valve There is mild to moderate mitral annular calcification. Mild-Moderate (1-2+) eccentric mitral valve insufficiency. Tricuspid Valve Normal tricuspid valve. Mild to moderate (1-2+) tricuspid valve insufficiency. Pulmonary artery systolic pressure is 54 mmHg. Moderate pulmonary hypertension. Aortic Valve Peak aortic valve gradient 22 mmHg. Mean aortic valve gradient 12 mmHg. Bioprosthetic aortic valve functioning normally. Great Vessels Normal aortic root. The pulmonary artery is normal size. The inferior vena cava is dilated. Pericardium/Pleural No pericardial effusion. MMode/2D Measurements & Calculations LVIDd: 4.2 cm IVSd: 1.1 cm LVOT diam: 2.0 cm LVIDs: 2.8 cm LVPWd: 1.2 cm LVOT area: 3.1 cm2 RVDd: 3.6 cm FS: 32.0 % LAV(MOD-bp): 120.6 ml LVAd ap4: 26.0 cm2 SV(MOD-sp4): 46.2 ml LAV(MOD-bp) Indexed: 58.5 ml/m2 LVLd ap4: 7.2 cm LAV(MOD-sp2): 118.6 ml EDV(MOD-sp4): 77.4 ml LAV(MOD-sp4): 113.8 ml EDV(sp4-el): 79.5 ml LVAs ap4: 14.6 cm2 LVLs ap4: 6.1 cm ESV(MOD-sp4): 31.2 ml ESV(sp4-el): 29.6 ml EF(MOD-sp4): 59.7 % EF(sp4-el): 62.8 % SV(sp4-el): 49.9 ml LA dimension(2D): 5.4 cm LA A4 area: 33.6 cm2 RA A4 area: 30.8 cm2 Doppler Measurements & Calculations MV E max kodak: 143.1 cm/sec Lat Peak E' Kodak: 11.2 cm/sec Med Peak E' Kodak: 8.3 cm/sec E/E' lat: 12.8 E/E' med: 17.2 Ao V2 max: 236.4 cm/sec LV V1 max: 124.0 cm/sec SV(LVOT): 79.2 ml Ao max P.4 mmHg LV V1 max P.4 mmHg Ao V2 mean: 161.2 cm/sec LV V1 mean P.7 mmHg Ao mean P.6 mmHg LV V1 mean: 89.5 cm/sec Ao V2 VTI: 41.6 cm LV V1 VTI: 25.6 cm AV (velocity ratio): 0.62 ABDIRASHID(I,D): 1.9 cm2 ABDIRASHID(V,D): 1.6 cm2 PA V2 max: 79.4 cm/sec TR max kodak: 353.3 cm/sec TR max P.9 mmHg ECHO/Echo Complete Interpretation Summary Normal LV size. Left ventricular systolic function is normal. The estimated ejection fraction is 60 %. Pulmonary artery systolic pressure is 54 mmHg. Moderate pulmonary hypertension. Peak aortic valve gradient 22 mmHg. Bioprosthetic aortic valve functioning normally. Compared to previous study, the left ventricular systolic function is the same. . Ordering Physician: Elisabeth Sarbaia/Gigi Bardales Referring Physician: HAKEEM TOLEDO Performed By: Simran Guzman RDCS
== END | disposition home or self-care (01) ==
PROVIDERS: PCP Internal Medicine; Referring Provider Physician Assistant Medical; Visit Provider Physician Assistant Medical
DX: R06.00 Dyspnea, unspecified (principal); Z95.2 Presence of prosthetic heart valve
CPT/HCPCS: 93306

== ENCOUNTER 2023-03-09 16:58 | Inpatient (IN) | payer OTHER, SELFPAY ==
[2023-03-09] VITALS (28 sets, daily range): BP systolic 107–129; BP diastolic 66–105; PULSE 83–111; RESP 14–31; TEMP 36.4–37; O2SAT 72–95; BMI 29.1; BMI 26.9
--- NOTE | 2023-03-09 17:15 | EKG12_ITS ---
Test Reason : Blood Pressure : / mmHG Vent. Rate : 091 BPM Atrial Rate : 000 BPM P-R Int : 000 ms QRS Dur : 100 ms QT Int : 372 ms P-R-T Axes : 000 003 024 degrees QTc Int : 457 ms Atrial fibrillation Low voltage QRS Nonspecific T wave abnormality Abnormal ECG Confirmed by PINKY CUMMINS, MARICEL ([id number]), publication editor SHIVA HOPPER ([id number]) on 03/10/2023 9:40:51 AM Referred By: YELENA Confirmed By:MARICEL VANCE MD
--- NOTE | 2023-03-09 17:22 | EX.ED.DYSGE1 ---
HPI History of Present Illness Chief Complaint: General Illness Informant: patient and family Narrative Narrative: 73-year-old male with 2-3 weeks of progressively worsening symptoms, mostly dyspnea, including orthopnea and PND, disoriented at night when he wakes up short of breath. He also admits to intermittent chest tightness and heaviness especially when he is dyspneic. Coughing up some yellow sputum, no fevers or chills. Leg swelling for the last 2 months at least, progressively worsening despite being on Lasix. They have been checking his oximetry at home and it was in the 70s. He is on room air and does not have home oxygen. Does have a history of COPD. Patient states he has been very weak and lethargic as well. [facility] Medical History Chronic atrial fibrillation Chronic bronchitis Chronic diastolic (congestive) heart failure Chronic kidney disease COPD (chronic obstructive pulmonary disease) Diabetes mellitus type 2, uncontrolled Diabetic neuropathy associated with type 2 diabetes mellitus Esophageal cancer (~2012) Hearing problem History of aortic stenosis History of blood transfusion History of transcatheter aortic valve replacement (TAVR) (~07/13/18) Hyperlipidemia Hypertension Migraines Nicotine dependence Non-rheumatic aortic stenosis Obesity Obstructive sleep apnea Patent foramen ovale Phimosis Pleural effusion Status post chemoradiation Stroke-like symptoms Ulcer Home Medications clopidogrel 75 mg tablet (Plavix) 75 mg PO DAILY 04/02/20 [History Last Taken 03/09/23] pantoprazole 40 mg tablet,delayed release 40 mg PO DAILY 04/02/20 [History Last Taken 03/09/23] metformin 500 mg tablet 500 mg PO BID diabetes 10/16/22 [History Last Taken 03/09/23] potassium chloride 10 mEq capsule,extended release 20 meq (2 x 10 mEq) PO DAILY #180 caps 01/12/23 [Rx Last Taken 03/09/23] furosemide 40 mg tablet 40 mg PO BID PRN edema #60 tabs 01/27/23 [Rx Last Taken 03/09/23] Allergy/AdvReac Type Severity Reaction Status Date / Time Seasonal Allergies: Uncoded Allergy NEEDS Verified 03/09/23 17:01 FOLLOW-UP Family History Mother CVA (cerebral vascular accident) Hypertension Father CVA (cerebral vascular accident) Hypertension Sister Diabetes Brother Heart disease Cancer Liver disease Surgical History History of appendectomy History of left heart catheterization (12/29/17) History of umbilical hernia repair Presence of Watchman left atrial appendage closure device (07/13/18) Social History Smoking Status: Current every day smoker tobacco type: cigarettes Tobacco: How many years used: 50 Electronic Cigarette Use: not used second hand exposure: No alcohol intake: never substance use type: does not use ROS ROS ED Constitutional Constitutional ED: Denies chills or fever(s) Eyes Eyes: Denies change in vision or diplopia ENT ENT ED: Denies rhinorrhea or sore throat Cardiovascular Cardiovascular: Reports chest pain, leg edema, orthopnea and paroxysmal nocturnal dyspnea; Denies palpitations or radiating jaw, neck or arm pain Respiratory/Chest Respiratory/Chest: Reports cough, dyspnea, dyspnea on exertion, orthopnea, paroxysmal nocturnal dyspnea and sputum Gastrointestinal Gastrointestinal: Denies abdominal pain, diarrhea, nausea or vomiting Genitourinary Genitourinary ED: Denies dysuria or hematuria Musculoskeletal Musculoskeletal: Denies back pain or neck pain Integumentary Denies abscess or rash Neurologic Neurologic: Denies headache(s), paresthesias or weakness Psychiatric Psychiatric: Reports as per HPI; Denies anxiety or suicidal thoughts EXAM Physical Exam Const Vital Signs: 03/09/23 16:59 03/09/23 17:09 03/09/23 17:17 Temperature 97.8 F Temperature Source Temporal Pulse Rate 91 98 Respiratory Rate 22 H 31 H Respiratory Effort Short of Breath Respiratory Pattern Tachypnea Blood Pressure 111/66 116/83 H Blood Pressure Mean 81 94 Pulse Ox 89 95 Oxygen Delivery Method Room Air Nasal Cannula Oxygen Flow Rate (L/min) 2 03/09/23 17:10 03/09/23 18:01 03/09/23 18:45 Temperature 98.6 F Temperature Source Temporal Pulse Rate 94 89 Respiratory Rate 31 H 24 H 30 H Respiratory Effort Respiratory Pattern Blood Pressure 119/79 Blood Pressure Mean 92 Pulse Ox 72 95 90 Oxygen Delivery Method Room Air Nasal Cannula Room Air Oxygen Flow Rate (L/min) 2 2 03/09/23 18:46 03/09/23 17:47 03/09/23 17:55 Temperature Temperature Source Pulse Rate 83 96 Respiratory Rate 24 H 31 H 20 H Respiratory Effort Respiratory Pattern Normal Blood Pressure 107/68 Blood Pressure Mean 81 Pulse Ox 93 94 Oxygen Delivery Method Nasal Cannula Nasal Cannula Oxygen Flow Rate (L/min) 3 2 03/09/23 17:50 03/09/23 18:00 03/09/23 18:10 Temperature Temperature Source Pulse Rate 97 94 88 Respiratory Rate 16 24 H 22 H Respiratory Effort Respiratory Pattern Blood Pressure 119/79 Blood Pressure Mean 92 Pulse Ox 93 95 Oxygen Delivery Method Nasal Cannula Oxygen Flow Rate (L/min) 03/09/23 18:15 03/09/23 18:20 03/09/23 18:38 Temperature Temperature Source Pulse Rate 101 H 96 101 H Respiratory Rate 22 H 24 H 22 H Respiratory Effort Respiratory Pattern Blood Pressure 120/76 Blood Pressure Mean 91 Pulse Ox 90 91 81 Oxygen Delivery Method Oxygen Flow Rate (L/min) 03/09/23 18:40 03/09/23 18:50 03/09/23 19:00 Temperature Temperature Source Pulse Rate 97 102 H 102 H Respiratory Rate 21 H 22 H 22 H Respiratory Effort Respiratory Pattern Blood Pressure 127/98 H Blood Pressure Mean 106 Pulse Ox 93 Oxygen Delivery Method Oxygen Flow Rate (L/min) 03/09/23 19:10 03/09/23 19:20 03/09/23 19:30 Temperature Temperature Source Pulse Rate 99 102 H 99 Respiratory Rate 14 29 H 31 H Respiratory Effort Respiratory Pattern Blood Pressure Blood Pressure Mean Pulse Ox 91 93 90 Oxygen Delivery Method Oxygen Flow Rate (L/min) 03/09/23 19:40 03/09/23 19:50 03/09/23 20:00 Temperature Temperature Source Pulse Rate 102 H 107 H 111 H Respiratory Rate 25 H 19 H 18 Respiratory Effort Respiratory Pattern Blood Pressure 120/105 H Blood Pressure Mean 112 Pulse Ox 95 95 94 Oxygen Delivery Method Oxygen Flow Rate (L/min) Positive well nourished and well developed General Appearance ED: well developed and NAD HEENT Reports moist mucous membranes normocephalic and atraumatic Eyes PERRL and EOMs intact bilaterally Neck full ROM, no lymphadenopathy, supple and no JVD Resp Resp Narrative: bibasilar rales, expiratory wheezes throughout. No respiratory distress. Prolonged expiratory phase. Equal breath sounds bilaterally, diminished throughout symmetrically. Trachea midline. Cardio Rate: Negative for tachycardic Rhythm: abnormal rhythm irregularly irregular Heart Sounds: murmur systolic I/ soft GI non-tender and non-distended Auscultation: normoactive bowel sounds Palpation: soft Back/Spine no CVA tenderness General Back: other FROM Extremity normal to inspection General Extremety ED: Yes edema; Negative for pulses abnormal or tenderness General Extremity: edema bilateral lower extremity Details: moderate; Negative for pulses abnormal Neuro oriented x3, CN's II-XII intact bilaterally and no sensory deficits noted Neuro Narrative: Able to walk Sensorium / Orientation: awake and alert Motor Exam: general weakness Psych mental status grossly normal Skin no rashes or lesions noted and no wounds MDM MDM MDM Narrative Medical decision making narrative: 2 view chest x-ray shows a large left pleural effusion on my interpretation, radiology in agreement. I think this is the cause of his symptoms, the rest of his work-up is nonspecific, he does not have a leukocytosis, his BNP is abnormal but similar to where it had been and not necessarily higher, and his kidney function is similar to what it had been as well. EKG shows chronic A-fib unchanged on the EKG compared to his prior, no acute injury pattern on my interpretation. After giving him IV Lasix and aerosols empirically, he is breathing better. He was significantly hypoxic at arrival in the 70s on room air and he is not on home oxygen. Plan is for admission, he will need an urgent nonemergent thoracentesis and probably more diagnostics. He is at risk for lung cancer, has a history of stomach cancer that was treated, and as I discussed with the family, cancer is a possibility here, as is congestive heart failure which he already has a known history of. Ordered an ABG, his PCO2 is 53 and his pH is 7.39. History & Record Review Discussion w/independent historian: Patient and Family Additional record(s) reviewed:: Prior outpatient record Lab Data Attestation: I reviewed the patient's lab results. Labs: Laboratory Results - last 24 hr 03/09/23 17:15 WBC 8.4 RBC 4.10 L Hgb 11.5 L Hct 37.8 L MCV 92.2 MCH 28.0 MCHC 30.4 L RDW Std Deviation 58.8 H RDW Coeff of Rachell 17.9 H Plt Count 358 MPV 11.0 Immature Gran % (Auto) 0.400 Neut % (Auto) 61.0 Lymph % (Auto) 20.8 [place] % (Auto) 15.9 H Eos % (Auto) 1.1 Baso % (Auto) 0.8 Absolute Neuts (auto) 5.1 Absolute Lymphs (auto) 1.74 Nucleated RBC % 0 Sodium 131 L Potassium 4.5 Chloride 94 L Carbon Dioxide 34.0 H Anion Gap 3 L BUN 26 H Creatinine 1.30 Estim Creat Clear Calc 52.25 Est GFR (MDRD) Af Amer 70 Est GFR (MDRD) Non-Af 58 L BUN/Creatinine Ratio 20.0 Glucose 148 H Calcium 8.9 Troponin I High Sens 31 B-Natriuretic Peptide 538.6 H ABG Data ABG results: ABG 03/09/23 18:08 Specimen Type ART Sample Site L Radial pH 7.40 Bicarbonate Actual 32.7 H Total CO2 34 Base Excess 8 H O2 Saturation 91 L O2 % 21 ABG pCO2 53.4 H ABG pO2 62 L Graeme Test Positive O2 Delivery Device Room Air Radiography Diagnostic Testing: Clinical Impression(s) from Imaging Studies Chest X-Ray 03/09/23 18:25 IMPRESSION: Moderate sized left pleural effusion and left lower lobe consolidation. Small right pleural effusion. Cannot definitively exclude new right lower lobe nodule. Film with nipple marker or CAT scan would be helpful for further evaluation if indicated Electronically Signed: Ming Kuo MD at 18:51 EDT , Rhythm Strip Rhythm Strip: A-fib Rate: 90 Ectopy: None EKG Initial EKG: Attestation: I personally reviewed and interpreted this EKG as follows: Interpretation: No Acute Injury Pattern and Atrial Fibrillation Prior EKG tracings: available for review Prior: Unchanged Management Discussion w/another healthcare provider: Hospitalist Discharge Plan Dx/Rx/DC Orders Clinical Impression: Hypoxemia, Chronic atrial fibrillation, Pleural effusion on left, Chest pain Disposition Disposition: Acute [facility]
[2023-03-09] MEDS: Furosemide 40 MG/4 ML Vial IV (17:26)
[2023-03-09 17:28] LABS: Absolute Lymphocyte Count 1.74 X10^3/uL (0.83-4.51); Absolute Neutrophil Count 5.1 X10^3/uL (2.0-7.7); Basophil# 0.07 X10^3/uL; Basophil% 0.8 % (0-1); Eosinophil# 0.09 X10^3/uL; Eosinophils% 1.1 % (0-5); Hematocrit 37.8 % (40-54); Hemoglobin 11.5 g/dL (13.0-16.5); Lymphocyte # 1.74 X10^3/ul (0.83-4.51); Lymphocyte % 20.8 % (19-41); Mean Corp Hgb Conc 30.4 g/dL (32-36); Mean Corpuscular Volume 92.2 fL (80-94); Monocyte# 1.33 X10^3/uL; Monocyte% 15.9 % (0-10); NRBC Flagged by Analyzer 0 % (0-5); Neutrophil # 5.09 X10^3/uL (2.7-7.7); Platelet Count 358 K/mm3 (150-450); RBC Distribution Width CV 17.9 % (11.6-14.6); RBC Distribution Width SD 58.8 fl (35.1-43.9); White Blood Count 8.4 K/mm3 (4.4-11.0)
[2023-03-09 17:52] LABS: BNP,B-Type NATRIURETIC PEPTIDE 538.6 pg/mL (0-100)
[2023-03-09] MEDS: Ipratropium/Albuterol Sulfate 3 ML AMPUL.NEB INHALATION (17:55)
[2023-03-09 17:57] LABS: Anion Gap 3 (5-15); BUN 26 mg/dL (7-18); Calcium,Total 8.9 mg/dL (8.5-10.1); Chloride 94 mmol/L (98-107); EST Glomerular Filtration Rate 58 mL/min (>60); Est Glom Filt Rate - Afr Amer 70 mL/min (>60); Estimated Creatinine Clearance 52.25 ml/min; Glucose 148 mg/dL (74-106); Potassium 4.5 mmol/L (3.5-5.1); Sodium Level 131 mmol/L (136-145); Troponin-I HS 31 pg/mL (3.0-78.0)
[2023-03-09 18:12] LABS: Allen Test Positive; Base Excess 8 mmol/L (-2 to +2); Bicarbonate 32.7 mmol/L (22-26); Blood Gas Specimen Type ART; FI02 21; O2 Delivery Device Room Air; PO2 62 mmHG (75-100); SITE L Radial; SO2 91 % (95-99); Total Carbon Dioxide 34 mmol/L; pCO2 53.4 mmHg (35-45)
--- NOTE | 2023-03-09 18:25 | RAD_ITS ---
STUDY: X-RAY CHEST REASON FOR EXAM: Male, 73 years old. sob, cp TECHNIQUE: PA and lateral COMPARISON: October 28, 2021 FINDINGS: Moderate sized left pleural effusion and consolidation of left lower lobe with smaller effusion on the right. Question small right lower lobe nodule not visualized on prior exam possibly related to nipple shadow artifact. Normal size heart. Normal mediastinum and ines. Normal visualized pulmonary arteries. Mildly calcified aortic arch and descending thoracic aorta. Dorsal spine demonstrates degenerative change. Normal visualized ribs, clavicles, and shoulders. There is no demonstrated abnormality of the visualized soft tissue structures of the upper abdomen. RAD/Chest PA and Lateral IMPRESSION: Moderate sized left pleural effusion and left lower lobe consolidation. Small right pleural effusion. Cannot definitively exclude new right lower lobe nodule. Film with nipple marker or CAT scan would be helpful for further evaluation if indicated Electronically Signed: Ming Kuo MD at 18:51 EDT ,
--- NOTE | 2023-03-09 20:32 | HP.PCM.HOS_ITS ---
HPI - General General Date of Admission: 03/09/23 Date of Service: 03/09/23 Chief Complaint: Dyspnea, increased LE edema. HPI Narrative The patient is a 73 y/o F w/ PMHx: CKD stage II, COPD, Chronic AF s/p watchman device, Chronic Diastolic CHF, Valvular heart disease s/p TAVR, Chronic normocytic anemia, Hx Esophageal CA s/p chemoradiation, Diabetes mellitus type II with chronic neuropathy, Chronic migraines, Obesity, HTN, HLD, Tobacco use, Obesity, KEYSHAWN who presents to the [facility] ED on 03/09/23 with history of 2 to 3 weeks of increasing dyspnea, worse with exertion with orthopnea as well as paroxysmal nocturnal dyspnea waking him up from sleep gasping for air in addition to intermittent chest tightness primarily when he feels dyspneic and is exerting himself with mild yellow sputum but no severe cough nor any recent fevers or chills nor any wheezing with persistent lower extremity bilateral swelling although it has been worsening for the last 2 months with home pulse oximeter assessments after exertion noted to be in the 70s and 80s with increased fatigue and malaise prompting eventual ED evaluation. He denies any ill contacts nor any recent nausea, emesis, abdominal pain or diarrhea. He reports over the last last year he is more so transition to sleeping on the couch upright and has been for the last several weeks unable to sleep in a bed because of his dyspnea. Workup in the ED included T97.8, heart rate 91, BP 111/68, respiratory rate 22, initially 89% upon room air however desaturated to 72% on room air improving to 94% on 3 L nasal cannula, most recent vital signs heart rate 111, BP 120/105, respiratory rate 18, CBC with WBC 8.4, hemoglobin 11.5, MCV 92.2, platelet 358 without shift, ABG with pH 7.40, O2 saturation 91%, pCO2 53.4, pO2 62 obtained on room air, BMP with sodium 131, chloride 94, carbon oxide 34, BUN/creatinine 26/1.30, glucose 148, troponin 31, BNP 538.6, chest x-ray with moderate-sized left pleural effusion and left lower lobe consolidation as well as a small right pleural effusion as well as inability to definitively exclude a new right lower lobe nodule, rapid SARS COVID antigen negative, EKG w/ cold atrial fibrillation with no acute evidence of ischemia. PFSH Medical History Chronic atrial fibrillation Chronic bronchitis Chronic diastolic (congestive) heart failure Chronic kidney disease COPD (chronic obstructive pulmonary disease) Diabetes mellitus type 2, uncontrolled Diabetic neuropathy associated with type 2 diabetes mellitus Esophageal cancer (~2012) Hearing problem History of aortic stenosis History of blood transfusion History of transcatheter aortic valve replacement (TAVR) (~07/13/18) Hyperlipidemia Hypertension Migraines Nicotine dependence Non-rheumatic aortic stenosis Obesity Obstructive sleep apnea Patent foramen ovale Phimosis Pleural effusion Status post chemoradiation Stroke-like symptoms Ulcer Home Medications clopidogrel 75 mg tablet (Plavix) 75 mg PO DAILY 04/02/20 [History Last Taken 03/09/23] pantoprazole 40 mg tablet,delayed release 40 mg PO DAILY 04/02/20 [History Last Taken 03/09/23] metformin 500 mg tablet 500 mg PO BID diabetes 10/16/22 [History Last Taken 03/09/23] potassium chloride 10 mEq capsule,extended release 20 meq (2 x 10 mEq) PO DAILY #180 caps 01/12/23 [Rx Last Taken 03/09/23] furosemide 40 mg tablet 40 mg PO BID PRN edema #60 tabs 01/27/23 [Rx Last Taken 03/09/23] Allergy/AdvReac Type Severity Reaction Status Date / Time Seasonal Allergies: Uncoded Allergy NEEDS Verified 03/09/23 17:01 FOLLOW-UP Family History Mother CVA (cerebral vascular accident) Hypertension Father CVA (cerebral vascular accident) Hypertension Sister Diabetes Brother Heart disease Cancer Liver disease Surgical History (Updated 03/09/23 @ 21:[address] Casandra Lucia MD) History of appendectomy History of left heart catheterization (12/29/17) History of umbilical hernia repair Presence of Watchman left atrial appendage closure device (07/13/18) S/P TAVR (transcatheter aortic valve replacement) Social History (Updated 03/09/23 @ 21:[address] Casandra Lucia MD) household members: spouse and family Smoking Status: Current every day smoker tobacco type: cigarettes Tobacco: How many years used: 50 Electronic Cigarette Use: not used second hand exposure: No alcohol intake: never substance use type: does not use ROS ROS Narrative Admission Review of Systems: CONSTITUTIONAL: No weight loss, fever, chills, + weakness or fatigue. HEENT: Eyes: No visual loss, blurred vision, double vision or yellow sclerae. Ears, Nose, Throat: No hearing loss, sneezing, congestion, runny nose or sore throat. SKIN: No rash or itching, lesions, wounds. CARDIOVASCULAR: + chest discomfort, edema, orthopnea, No palpitations, syncopal events. RESPIRATORY: + shortness of breath, minimal cough with occasional yellow sputum. No wheezing, hemoptysis. GASTROINTESTINAL: No anorexia, nausea, vomiting or diarrhea, abdominal pain, melena, BRBPR. GENITOURINARY: No dysuria, frequency, urgency or retention. NEUROLOGICAL: + Chronic headache. No dizziness, syncope, paralysis, ataxia, numbness or tingling in the extremities, focal weakness, change in bowel or bladder control, seizure. MUSCULOSKELETAL: + muscle, back pain, joint pain or stiffness. HEMATOLOGIC: + anemia, bleeding or bruising. LYMPHATICS: No enlarged nodes. No history of splenectomy. PSYCHIATRIC: No history of depression or anxiety. ENDOCRINOLOGIC: No reports of sweating, cold or heat intolerance. No polyuria or polydipsia. ALLERGIES: + history of rhinitis. Vital Signs Vital Signs Vital Signs: 03/09/23 16:59 03/09/23 17:09 03/09/23 17:17 Temperature 97.8 F Temperature Source Temporal Pulse Rate 91 98 Respiratory Rate 22 H 31 H Respiratory Effort Short of Breath Respiratory Pattern Tachypnea Blood Pressure 111/66 116/83 H Blood Pressure Mean 81 94 Pulse Ox 89 95 Oxygen Delivery Method Room Air Nasal Cannula Oxygen Flow Rate (L/min) 2 03/09/23 17:10 03/09/23 18:01 03/09/23 18:45 Temperature 98.6 F Temperature Source Temporal Pulse Rate 94 89 Respiratory Rate 31 H 24 H 30 H Respiratory Effort Respiratory Pattern Blood Pressure 119/79 Blood Pressure Mean 92 Pulse Ox 72 95 90 Oxygen Delivery Method Room Air Nasal Cannula Room Air Oxygen Flow Rate (L/min) 2 2 03/09/23 18:46 03/09/23 17:47 03/09/23 17:55 Temperature Temperature Source Pulse Rate 83 96 Respiratory Rate 24 H 31 H 20 H Respiratory Effort Respiratory Pattern Normal Blood Pressure 107/68 Blood Pressure Mean 81 Pulse Ox 93 94 Oxygen Delivery Method Nasal Cannula Nasal Cannula Oxygen Flow Rate (L/min) 3 2 03/09/23 17:50 03/09/23 18:00 03/09/23 18:10 Temperature Temperature Source Pulse Rate 97 94 88 Respiratory Rate 16 24 H 22 H Respiratory Effort Respiratory Pattern Blood Pressure 119/79 Blood Pressure Mean 92 Pulse Ox 93 95 Oxygen Delivery Method Nasal Cannula Oxygen Flow Rate (L/min) 03/09/23 18:15 03/09/23 18:20 03/09/23 18:38 Temperature Temperature Source Pulse Rate 101 H 96 101 H Respiratory Rate 22 H 24 H 22 H Respiratory Effort Respiratory Pattern Blood Pressure 120/76 Blood Pressure Mean 91 Pulse Ox 90 91 81 Oxygen Delivery Method Oxygen Flow Rate (L/min) 03/09/23 18:40 03/09/23 18:50 03/09/23 19:00 Temperature Temperature Source Pulse Rate 97 102 H 102 H Respiratory Rate 21 H 22 H 22 H Respiratory Effort Respiratory Pattern Blood Pressure 127/98 H Blood Pressure Mean 106 Pulse Ox 93 Oxygen Delivery Method Oxygen Flow Rate (L/min) 03/09/23 19:10 03/09/23 19:20 03/09/23 19:30 Temperature Temperature Source Pulse Rate 99 102 H 99 Respiratory Rate 14 29 H 31 H Respiratory Effort Respiratory Pattern Blood Pressure Blood Pressure Mean Pulse Ox 91 93 90 Oxygen Delivery Method Oxygen Flow Rate (L/min) 03/09/23 19:40 03/09/23 19:50 03/09/23 20:00 Temperature Temperature Source Pulse Rate 102 H 107 H 111 H Respiratory Rate 25 H 19 H 18 Respiratory Effort Respiratory Pattern Blood Pressure 120/105 H Blood Pressure Mean 112 Pulse Ox 95 95 94 Oxygen Delivery Method Oxygen Flow Rate (L/min) Weight Weight: 203 lb Body Mass Index (BMI) 29.1 Physical Exam Narrative Physical Examination: General: Awake, alert, oriented x 3 and cooperative, seated upright in the ED bed in no apparent distress, fatigued appearing. Skin: Normal color, normal turgor, no icterus, no cyanosis except occasional abrasion, bilateral lower extremity venous stasis skin changes. HEENT: AT/NC, EOMI, PERRLA, MMM, no carotid bruits, + JVD noted. Lungs: Diminished, greater bases, left greater than right, very minimal Rales bases, no rhonchi or wheezing, mildly increased respiratory rate but no distress. Heart: Irregular, rate controlled; no gallop, rub audible, s/p TAVR. Abdomen: Soft, obese, NTTP, ND, distant normal BS, no HSM. Extremities: No cyanosis, no clubbing, significant pedal to knee 3+ pitting edema. Neurological: Patient awake, alert, oriented as noted, cognitive function intact; pupils equally reactive to light and accommodation, cranial nerves grossly normal, moving all 4 extremities, no focal deficits, strength severely globally decreased secondary to acute presentation. Psychiatric: Affect appears flat, fatigued, no acute evidence of depressive or anxiety feelings. Results Lab / Micro Data 03/09/23 17:15 03/09/23 17:15 Labs: Laboratory Results - last 24 hr 03/09/23 17:15: WBC 8.4, RBC 4.10 L, Hgb 11.5 L, Hct 37.8 L, MCV 92.2, MCH 28.0, MCHC 30.4 L, RDW Std Deviation 58.8 H, RDW Coeff of Rachell 17.9 H, Plt Count 358, MPV 11.0, Immature Gran % (Auto) 0.400, Neut % (Auto) 61.0, Lymph % (Auto) 20.8, Orange % (Auto) 15.9 H, Eos % (Auto) 1.1, Baso % (Auto) 0.8, Absolute Neuts (auto) 5.1, Absolute Lymphs (auto) 1.74, Nucleated RBC % 0, Sodium 131 L, Potassium 4.5, Chloride 94 L, Carbon Dioxide 34.0 H, Anion Gap 3 L, BUN 26 H, Creatinine 1.30, Estim Creat Clear Calc 52.25, Est GFR (MDRD) Af Amer 70, Est GFR (MDRD) Non-Af 58 L, BUN/Creatinine Ratio 20.0, Glucose 148 H, Calcium 8.9, Troponin I High Sens 31, B-Natriuretic Peptide 538.6 H Micro: Microbiology 03/09/23 17:38 Nasal Secretion SARS-CoV-2 Antigen (Rapid) - Final ABG Data ABG results: ABG 03/09/23 18:08 Specimen Type ART Sample Site L Radial pH 7.40 Bicarbonate Actual 32.7 H Total CO2 34 Base Excess 8 H O2 Saturation 91 L O2 % 21 ABG pCO2 53.4 H ABG pO2 62 L Graeme Test Positive O2 Delivery Device Room Air Rhythm Strip Rhythm Strip: A-fib Rate: 90 Ectopy: None Radiology Impression Chest X-Ray 03/09/23 18:25 IMPRESSION: Moderate sized left pleural effusion and left lower lobe consolidation. Small right pleural effusion. Cannot definitively exclude new right lower lobe nodule. Film with nipple marker or CAT scan would be helpful for further evaluation if indicated Electronically Signed: Ming Kuo MD at 18:51 EDT , Assessment & Plan Assessment/Plan (1) CHF exacerbation: PLAN: Plan The patient is a 73 y/o F w/ PMHx: CKD stage II, COPD, Chronic AF s/p watchman device, Chronic Diastolic CHF, Valvular heart disease s/p TAVR, Chronic normocytic anemia, Hx Esophageal CA s/p chemoradiation, Diabetes mellitus type II with chronic neuropathy, Chronic migraines, Obesity, HTN, HLD, Tobacco use, Obesity, KEYSHAWN who presents to the [facility] ED on 03/09/23 with history of 2 to 3 weeks of increasing dyspnea, worse with exertion with orthopnea as well as paroxysmal nocturnal dyspnea waking him up from sleep gasping for air in addition to i ntermittent chest tightness primarily when he feels dyspneic and is exerting himself with mild yellow sputum but no severe cough nor any recent fevers or chills nor any wheezing with persistent lower extremity bilateral swelling although it has been worsening for the last 2 months with home pulse oximeter assessments after exertion noted to be in the 70s and 80s with increased fatigue and malaise prompting eventual ED evaluation. #1. Acute Hypoxia secondary to Acute Decompensated CHF with concurrent moderate-sized left pleural effusion and left lower lobe consolidation as well as a small right pleural effusion with associated chest discomfort with questionable new right lower lobe nodule complicated by #2 with also noted hypercapnia: Patient administered IV lasix in the ED, will admit to PCU, maintain on cardiac telemetry, obtain cardiac enzyme series, obtain serial EKGs, continue IV lasix diuresis, monitor I/Os, maintain on intake restriction, continue medical therapy; however, will hold plavix temporarily in case diuresis not effective and requires thoracentesis but will add back immediately if this is felt unnecessary. Will obtain TSH and magnesium level. Most recent ECHO noted 02/07/2023 with normal LV size, normal LV systolic function, EF 60%, PASP 54 mmHg consistent with moderate pulmonary hypertension, peak AV gradient 22 mmHg, bioprosthetic AV functioning normally, compared to prior study systolic function similar. thus will not repeat. Place snug GABRIEL wraps with LE elevation. Once patient has been effectively diuresed or if patient does require thoracentesis will be able to better assess possible new right lower lobe nodule with post evaluation film. #2. Chronic COPD: Will maintain on oxygen with wean as tolerated to room air, will place on ATC duonebs, PRN albuterol, HOB, IS parameters, given yellow sputum although no severe cough or any recent fevers or chills or wheezing will request sputum culture in addition to urine antigens to be cautious as well as procalcitonin and low threshold to add antibiotic therapy if these are significant. #3. Valvular heart disease: Status post TAVR, ECHO 02/07/2023 with normal LV size, normal LV systolic function, EF 60%, PASP 54 mmHg consistent with moderate pulmonary hypertension, peak AV gradient 22 mmHg, bioprosthetic AV functioning normal. #4. Chronic AF: Status post Watchman device (#26 mm S3 ROBERT valve), will temporarily hold Plavix as noted, resume if no intention for thoracentesis, will continue patient home diltiazem regimen. #5. Diabetes mellitus type II with chronic neuropathy: Hold oral home regimen, ADA diet, accu checks w/ ISS. #6. Hx Esophageal CA: S/p chemoradiation, from discussions with patient's unclear but do suspect patient is technically in remission #7. Hypertension: Continue home regimen including diltiazem, holding oral Lasix with temporary IV Lasix, PRN hydralazine. #8. Hyperlipidemia: Per most recent list not on statin therapy, FLP requested. #9. Chronic normocytic anemia: Admission hemoglobin 11.5, MCV 92.2, prior 02/17/2023 hemoglobin 11.3 although has vacillated previously and suspect following aggressive diuresis will alter, will continue to trend CBC. #10. Obesity: Weight loss and lifestyle changes encouraged. #12. Tobacco Abuse: Encouraged cessation, inpatient consultation per RT, NR if desired. #13. KEYSHAWN: BIPAP q HS given presentation. #14. DVT prophylaxis: SCDs, will hold chemoprophylaxis in case diuresis not effective and requires IR thoracentesis, add if seems to be improving and does not require IR involvement. #15. CODE status: Patient does not have healthcare power of employment attorney or living will in place. Discussed CODE status at length with patient , himself as well as his daughter who is present including difference between FULL code, DNR- CCA and DNR-CC status. Following discussions about the differences in these stat us, requested following several repetitions DNR-CCA, no intubation. Advanced Care Planning Face to Face Time: 16 minutes. Charges/Coding Visit Charges Inpatient E&M: 54022 Init Hosp L3 Procedures Hospitalists Procedures: 26179 Advncd Care Plan 30 Min
[2023-03-09 20:59] LABS: Magnesium 2.1 mg/dL (1.6-2.6)
[2023-03-09 23:02] LABS: Procalcitonin 0.12 ng/mL (0.00-0.09)
[2023-03-09 23:12] LABS: Troponin-I HS 33 pg/mL (3.0-78.0)
[2023-03-10] VITALS (13 sets, daily range): BP systolic 111–131; BP diastolic 67–80; PULSE 70–98; RESP 14–20; TEMP 36.7–37.3; O2SAT 91–96; BMI 26.9
[2023-03-10 00:48] LABS: Bedside Glucose 126 mg/dL (74-106)
[2023-03-10 03:27] LABS: Absolute Lymphocyte Count 1.54 X10^3/uL (0.83-4.51); Basophil# 0.07 X10^3/uL; Basophil% 0.8 % (0-1); Eosinophil# 0.12 X10^3/uL; Eosinophils% 1.3 % (0-5); Hematocrit 34.3 % (40-54); Hemoglobin 10.4 g/dL (13.0-16.5); Lymphocyte # 1.54 X10^3/ul (0.83-4.51); Lymphocyte % 16.8 % (19-41); Mean Corp Hgb Conc 30.3 g/dL (32-36); Mean Corpuscular Volume 92.2 fL (80-94); Mean Platelet Vol. 10.6 fl (6.2-12.0); Monocyte# 1.43 X10^3/uL; Monocyte% 15.6 % (0-10); NRBC Flagged by Analyzer 0 % (0-5); Neutrophil # 6.01 X10^3/uL (2.7-7.7); Neutrophil % 65.3 % (47-70); Platelet Count 339 K/mm3 (150-450); RBC Distribution Width CV 17.8 % (11.6-14.6); RBC Distribution Width SD 58.5 fl (35.1-43.9); Red Blood Count 3.72 M/mm3 (4.6-6.2); White Blood Count 9.2 K/mm3 (4.4-11.0)
[2023-03-10 03:44] LABS: Troponin-I HS 37 pg/mL (3.0-78.0)
[2023-03-10 03:55] LABS: ALB/GLOB Ratio 0.4 RATIO (0.9-2.4); AST(SGOT) 16 U/L (15-37); Alanine Aminotransfer ALT/SGPT 14 U/L (16-61); Albumin, Serum 2.3 g/dL (3.2-5.0); Alkaline Phosphatase 88 U/L (45-117); Anion Gap 1 (5-15); BUN 22 mg/dL (7-18); BUN/Creat Ratio 21.2 RATIO (10-20); Calcium,Total 8.2 mg/dL (8.5-10.1); Chloride 94 mmol/L (98-107); Cholesterol 123 mg/dL (200); Creatinine, Serum 1.04 mg/dL (0.70-1.30); EST Glomerular Filtration Rate 74 mL/min (>60); Est Glom Filt Rate - Afr Amer 90 mL/min (>60); Estimated Creatinine Clearance 69.43 ml/min; Globulin 5.9 g/dL (2.2-4.2); Glucose 129 mg/dL (74-106); High Density Lipoprotein 25 mg/dL; Potassium 4.1 mmol/L (3.5-5.1); Protein, Total 8.2 g/dL (6.4-8.2); Sodium Level 134 mmol/L (136-145); Thyroid Stim Hormone (TSH) 2.23 uIU/mL (0.358-3.74); Triglycerides 73 mg/dL; Very Low Density Lipoprotein 15 mg/dL (5-40)
[2023-03-10 06:48] LABS: Bedside Glucose 131 mg/dL (74-106)
[2023-03-10] MEDS: Ipratropium/Albuterol Sulfate 3 ML AMPUL.NEB INHALATION ×3 (06:58→19:13)
[2023-03-10] MEDS: Potassium Chloride Oral Tablet 20 MEQ PO (08:09)
[2023-03-10] MEDS: Pantoprazole Sodium 40 MG Tablet PO (10:45)
[2023-03-10] MEDS: Furosemide 40 MG/4 ML Vial IV ×2 (10:45→17:13)
[2023-03-10] MEDS: dilTIAZem CD 120 MG Capsule PO (10:45)
--- NOTE | 2023-03-10 11:30 | CASEMGMT ---
CRISTIAN REDDY Face to Face with patient for initial transition planning/care coordination assessment. RN MAUREEN introduced self and role at [facility]. Patient lying in bed, alert and oriented. Patient willing to participate in assessment and is able to answer all questions appropriately. Care providers, pharmacy, and demographics verified. Patient wishes to discharge home, denies need for home health at this time. Patient states he has no further needs or concerns at this time. CM to follow for discharge planning needs that may arise. PCP: Jody Specialists: [facility] Preferred Pharmacy: [facility]; [facility] retail at discharge. Insurance: [facility] Prescription Benefit: none Living Will/HPOA: none LNOK: , son Living Arrangements: Patient lives with in a 1.5 story home with bed and bath on first floor. Patient states he is independent at home and able to ambulate stairs. Transportation: driving service DME/HHC: Patient has cane, raised toilet, and glucometer at home. Patient has access to a generator. No previous HHC or SNF. Will monitor for home oxygen at discharge. Disposition Plan: Patient to discharge home with family support and follow-up plans in place. Will monitor for home oxygen Mary DECKER, RN, CM
[2023-03-10 11:53] LABS: Bedside Glucose 146 mg/dL (74-106)
--- NOTE | 2023-03-10 13:07 | CHAPLAIN ---
Type of Pastoral Visit _x__ Initial Visit ___ Follow-up Visit ___ On-call Visit ___ General Patient Visit ___ Spiritual Assessment ___ Family Conference ___ Bereavement ___ Rapid Response ___ Code Blue ___ Other (describe below) Pastoral Care Referral From _x__ Patient _x__ Family ___ Nurse ___ Physician ___ Economic Geographer ___ Corporate Claims Examiner ___ Other (describe below) Sacrament/Intervention _x__ Active listening ___ Anointing ___ Caodaism ___ Bereavement ___ Communion ___ Ava exploration ___ ___ Life review _x__ Prayer ___ Reconciliation ___ Sacrament of Sick ___ Supportive presence ___ Wedding ___ Other (describe below) Pastoral Comments patient is sitting in chair but has difficulty staying awake; pt does answer questions as asked of him but does not make conversation; pt does show some humor when stating he would like to be fishing today; and daughter are in the room and answer most of the questions as well; all express thanks for the health team and concern shown; prayer is welcomed for support
--- NOTE | 2023-03-10 15:20 | PN.HOSP_ITS ---
Reason for Visit Reason for Visit: Diagnoses Heart failure, unspecified (03/09/23) Subjective Subjective Patient evaluated at bedside, and daughter present. Patient states that his breathing today feels slightly better than yesterday. He continues to feel volume overloaded in his legs. He continues to feel weaker and more tired than he typically does. His and daughter state that his physical activity level has steadily decreased over the last several months, and has particularly worsened over the past few weeks. He has been sitting in bed and sleeping a good portion of the time. Patient denies any acute chest discomfort. Denies any fevers or chills. Denies any palpitations. He is interested in getting out of bed and walking around the room. Denies any other acute concerns. Objective Data Objective Data Vital Signs: Vital Signs Temp Pulse Resp BP Pulse Ox O2 Del Method O2 Flow Rate 99.0 F 82 16 111/77 96 Nasal Cannula 3 03/10/23 10:53 03/10/23 13:06 03/10/23 13:06 03/10/23 10:53 03/10/23 10:53 03/10/23 10:53 03/10/23 10:53 Oxygen Flow Rate (L/min) 3 Oxygen Delivery Method Nasal Cannula Weight: 90.2 kg Body Mass Index (BMI) 26.9 Intake & Output: Intake and Output for Last 24 Hours 03/08/23 03/09/23 03/10/23 23:59 23:59 23:59 Intake Total 120 / 120 Output Total 350 / 1050 950 / 950 Balance -350 / -1050 -830 / -830 Lab / Micro Data Attestation: I reviewed the patient's lab results. 03/10/23 03:19 03/10/23 03:19 Labs: Laboratory Results - last 24 hr 03/09/23 17:15: WBC 8.4, RBC 4.10 L, Hgb 11.5 L, Hct 37.8 L, MCV 92.2, MCH 28.0, MCHC 30.4 L, RDW Std Deviation 58.8 H, RDW Coeff of Rachell 17.9 H, Plt Count 358, MPV 11.0, Immature Gran % (Auto) 0.400, Neut % (Auto) 61.0, Lymph % (Auto) 20.8, [place] % (Auto) 15.9 H, Eos % (Auto) 1.1, Baso % (Auto) 0.8, Absolute Neuts (auto) 5.1, Absolute Lymphs (auto) 1.74, Nucleated RBC % 0, Sodium 131 L, Potassium 4.5, Chloride 94 L, Carbon Dioxide 34.0 H, Anion Gap 3 L, BUN 26 H, Creatinine 1.30, Estim Creat Clear Calc 52.25, Est GFR (MDRD) Af Amer 70, Est GFR (MDRD) Non-Af 58 L, BUN/Creatinine Ratio 20.0, Glucose 148 H, Calcium 8.9, Magnesium 2.1, Troponin I High Sens 31, B-Natriuretic Peptide 538.6 H 03/09/23 22:10: Troponin I High Sens 33, Procalcitonin 0.12 H 03/09/23 23:00: POC Glucose 126 H 03/10/23 03:19: WBC 9.2, RBC 3.72 L, Hgb 10.4 L, Hct 34.3 L, MCV 92.2, MCH 28.0, MCHC 30.3 L, RDW Std Deviation 58.5 H, RDW Coeff of Rachell 17.8 H, Plt Count 339, MPV 10.6, Immature Gran % (Auto) 0.200, Neut % (Auto) 65.3, Lymph % (Auto) 16.8 L, [place] % (Auto) 15.6 H, Eos % (Auto) 1.3, Baso % (Auto) 0.8, Absolute Neuts (auto) 6.0, Absolute Lymphs (auto) 1.54, Nucleated RBC % 0, Sodium 134 L, Potassium 4.1, Chloride 94 L, Carbon Dioxide 39.0 H, Anion Gap 1 L, BUN 22 H, Cr eatinine 1.04, Estim Creat Clear Calc 69.43, Est GFR (MDRD) Af Amer 90, Est GFR (MDRD) Non-Af 74, BUN/Creatinine Ratio 21.2 H, Glucose 129 H, Calcium 8.2 L, Total Bilirubin 0.80, AST 16, ALT 14 L, Alkaline Phosphatase 88, Troponin I High Sens 37, Total Protein 8.2, Albumin 2.3 L, Globulin 5.9 H, Albumin/Globulin Ratio 0.4 L, Triglycerides 73, Cholesterol 123, LDL Cholesterol 83, VLDL Cholesterol 15, HDL Cholesterol 25 L, TSH 2.23 08/08/23 06:15: POC Glucose 131 H 03/10/23 11:34: POC Glucose 146 H Micro: Microbiology 03/09/23 22:35 Sputum, Expectorated/Coughed Gram Stain - Final 03/09/23 22:35 Sputum, Expectorated/Coughed Respiratory Culture - Preliminary Alpha Hemolytic Streptococcus 03/09/23 22:35 Mucosa - Nasopharyngeal Respiratory Panel (PCR) - Final 03/09/23 22:17 Urine, Clean Catch Streptococcus pneumoniae Antigen (M - Final 03/09/23 22:17 Urine, Clean Catch Legionella Antigen - Final 03/09/23 17:38 Nasal Secretion SARS-CoV-2 Antigen (Rapid) - Final ABG Data ABG results: ABG 03/09/23 18:08 Specimen Type ART Sample Site L Radial pH 7.40 Bicarbonate Actual 32.7 H Total CO2 34 Base Excess 8 H O2 Saturation 91 L O2 % 21 ABG pCO2 53.4 H ABG pO2 62 L Graeme Test Positive O2 Delivery Device Room Air Radiography Diagnostic Testing: Radiology Impression Chest X-Ray 03/09/23 18:25 IMPRESSION: Moderate sized left pleural effusion and left lower lobe consolidation. Small right pleural effusion. Cannot definitively exclude new right lower lobe nodule. Film with nipple marker or CAT scan would be helpful for further evaluation if indicated Electronically Signed: Ming Kuo MD at 18:51 EDT , Rhythm Strip Rhythm Strip: A-fib Rate: 90 Ectopy: None Physical Exam Const alert and oriented x3 Constitutional Narrative: Elderly male, resting comfortably in bed, appears mildly fatigued, conversing normally, no acute distress. Satting well on 3 L nasal cannula, no increased work of breathing noted. General Appearance: cooperative HEENT normocephalic, head/scalp atraumatic, hearing grossly normal bilaterally, nasal mucous membranes and turbinates normal and moist oral mucous membranes Eyes PERRL, EOMs intact bilaterally and conjunctivae normal Neck full ROM, no lymphadenopathy and supple Lymph Lymphatic: no lymphadenopathy noted Chest inspection of chest normal Resp normal respiratory effort and no use of accessory muscles Resp Narrative: Decreased breath sounds in left lung base. Otherwise good air movement bilaterally. No wheezing, rhonchi or rales noted. Cardio regular rate, regular rhythm, no murmurs and peripheral pulses 2+ throughout GI normal to inspection, nondistended, normoactive bowel sounds, soft to palpation, non-tender and non-distended Back/Spine normal ROM Extremity normal to inspection and full ROM Extremity Narrative: +3-4 lower extremity pitting edema noted bilaterally up to the knee. Had both lower legs wrapped with Lefty bandage to help with compression. No erythema noted bilaterally. Peripheral Pulses: Yes pulses 2+ throughout Skin no rashes or lesions noted Psych mental status grossly normal Assessment & Plan Assessment/Plan (1) CHF exacerbation: PLAN: Plan The patient is a 73 y/o F w/ PMHx: CKD stage II, COPD not on home O2, Chronic AF s/p watchman device, Chronic Diastolic CHF, Valvular heart disease s/p TAVR, Chronic normocytic anemia, Hx Esophageal CA s/p chemoradiation, Diabetes mellitus type II with chronic neuropathy, Chronic migraines, Obesity, HTN, HLD, Tobacco use, Obesity, KEYSHAWN who presented to the [facility] ED on 03/09/23 with 2 to 3 weeks of worsening dyspnea and new onset hypoxia. #1. Acute Decompensated CHF: CXR on admission notable for moderate-sized left- sided pleural effusion and small right pleural effusion, as well as increased vascular markings bilaterally. Patient has concurrent +3-4 bilateral lower extremity pitting edema. Has consistently been satting in the low to mid 90s on 3 L nasal cannula. Has been breathing comfortably, no acute distress. Home medications for his heart failure include Lasix 40 mg twice daily. Most recent ECHO noted 02/07/2023 with normal LV size, normal LV systolic function, EF 60%, PASP 54 mmHg consistent with moderate pulmonary hypertension, peak AV gradient 22 mmHg, bioprosthetic AV functioning normally, compared to prior study systolic function similar. Has not received 2 doses of IV Lasix 40 mg with good urine output. However, patient remains quite volume overloaded. Continue IV diuresis. Patient developing metabolic alkalosis as noted below with most recent bicarbonate level of 39. We will recheck BMP tomorrow morning and assess ability to use loop diuretics at that point. We will plan to recheck chest x- ray tomorrow morning as well; if patient continues to have moderate to large left-sided pleural effusion, will need to consider thoracentesis. We will hold tomorrow morning dose of Plavix. Continue lower extremity Lefty wraps with elevation. Monitor on cardiac telemetry. Daily I's and O's, daily weights. #2. Moderate left-sided pleural effusion. Most likely secondary to heart failure as noted above. However, cannot fully rule out infection or malignant process. Chest x-ray ordered for tomorrow morning as noted above. Plavix held in case of need for thoracentesis as above. #3. Chronic COPD: Not on home oxygen. Low concern for acute exacerbation. Denies any previous history of exacerbations. Does report some occasional yellow sputum but denies severe cough, recent fevers or chills, or wheezing. Pro-Elias on admission negative. Chest x-ray findings as noted above. Urine antigens negative. Respiratory PCR panel negative. COVID-negative. #4. Strep viridans pneumonia: Sputum culture positive for alpha hemolytic strep on 03/10. Sensitivities pending. We will plan to treat with 5-day course of ceftriaxone 1 g every 24 hours. #5 Right lower lobe nodule: Small possible nodule noted on admission chest x- ray. Would be a new nodule. Will reassess with chest x-ray tomorrow morning post diuresis. Lower concern for malignancy at this time. #6. Valvular heart disease: Status post TAVR, ECHO 02/07/2023 with normal LV size, normal LV systolic function, EF 60%, PASP 54 mmHg consistent with moderate pulmonary hypertension, peak AV gradient 22 mmHg, bioprosthetic AV functioning normal. #7. Chronic AF: Status post Watchman device (#26 mm S3 ROBERT valve), will temporarily hold Plavix as noted, resume if no intention for thoracentesis, will continue patient home diltiazem regimen. #8. Diabetes mellitus type II with chronic neuropathy: Hold oral home regimen, ADA diet, accu checks w/ ISS. #9. Hx Esophageal CA: S/p chemoradiation, from discussions with patient's unclear but do suspect patient is technically in remission #10. Hypertension: Continue home regimen including diltiazem, holding oral Lasix with temporary IV Lasix, PRN hydralazine. #11. Hyperlipidemia: Per most recent list not on statin therapy, FLP requested. #12. Chronic normocytic anemia: Admission hemoglobin 11.5, MCV 92.2, prior 02/17/2023 hemoglobin 11.3 although has vacillated previously and suspect following aggressive diuresis will alter, will continue to trend CBC. #13. Obesity: Weight loss and lifestyle changes encouraged. #14. Tobacco Abuse: Encouraged cessation, inpatient consultation per RT, NR if desired. #15. KEYSHAWN: BIPAP q HS given presentation. #16. DVT prophylaxis: SCDs, will hold chemoprophylaxis in case diuresis not effective and requires IR thoracentesis, add if seems to be improving and does not require IR involvement. Code status: DNRCCA-DNI Total clinical time spent by myself addressing the patient's medical issues, reviewing all of the data, and collaborating with patient's care team: 35 minutes. Charges/Coding Visit Charges Inpatient E&M: 98172 Subs Hosp L2
[2023-03-10] MEDS: Insulin Lispro 100 UNIT/ML INSULN.PEN SC ×2 (16:14→21:59)
--- NOTE | 2023-03-10 16:26 | NUR.TO.PHY ---
pt family asking about nicotine patch. can he have one please?
[2023-03-10 16:34] LABS: Bedside Glucose 159 mg/dL (74-106)
[2023-03-10] MEDS: Ceftriaxone 1 GM/50 ML BAG IV (17:13)
[2023-03-10] MEDS: 0.9% Saline Lock 10 ML Syringe IV (17:13)
[2023-03-10 22:29] LABS: Bedside Glucose 153 mg/dL (74-106)
[2023-03-11] VITALS (14 sets, daily range): BP systolic 102–133; BP diastolic 60–81; PULSE 85–106; RESP 16–22; TEMP 36.7–37.1; O2SAT 83–98; BMI 26.2
[2023-03-11] MEDS: Ipratropium/Albuterol Sulfate 3 ML AMPUL.NEB INHALATION ×3 (06:43→19:58)
[2023-03-11 07:11] LABS: Anion Gap 3 (5-15); BUN 22 mg/dL (7-18); BUN/Creat Ratio 19.5 RATIO (10-20); Calcium,Total 8.4 mg/dL (8.5-10.1); Chloride 92 mmol/L (98-107); Creatinine, Serum 1.13 mg/dL (0.70-1.30); EST Glomerular Filtration Rate 68 mL/min (>60); Est Glom Filt Rate - Afr Amer 82 mL/min (>60); Glucose 124 mg/dL (74-106); Sodium Level 132 mmol/L (136-145)
--- NOTE | 2023-03-11 07:12 | PN.HOSP_ITS ---
Reason for Visit Reason for Visit: Diagnoses Heart failure, unspecified (03/09/23) Subjective Subjective Patient seen at bedside this morning, present. Patient had been fairly lethargic this morning per and nursing staff. Was able to get from bed to bedside chair without issue. Has been able to get up to use the bathroom in the room without issue. Has been using his oxygen only intermittently since last night. On pulse ox check in the room saturations were in the high 70s. Placed patient on 4 L nasal cannula with improvement in oxygenation to the low 90s. Patient reports good urine output but continues to feel volume overloaded. Denies any cough or sputum production. Denies any fevers or chills. No other acute concerns this morning. Objective Data Objective Data Vital Signs: Vital Signs Temp Pulse Resp BP Pulse Ox O2 Del Method O2 Flow Rate 98.5 F 90 18 117/75 94 Nasal Cannula 2 03/11/23 04:00 03/11/23 04:00 03/11/23 04:00 03/11/23 04:00 03/11/23 04:00 03/11/23 04:00 03/11/23 04:00 Oxygen Flow Rate (L/min) 2 Oxygen Delivery Method Nasal Cannula Weight: 87.8 kg Body Mass Index (BMI) 26.2 Intake & Output: Intake and Output for Last 24 Hours 03/09/23 03/10/23 03/11/23 23:59 23:59 23:59 Intake Total 570 / 810 240 / 240 Output Total 350 / 1050 1450 / 1450 Balance -350 / -1050 -880 / -640 240 / 240 Lab / Micro Data Attestation: I reviewed the patient's lab results. 03/10/23 03:19 03/11/23 05:12 Labs: Laboratory Results - last 24 hr 03/10/23 03:19: Troponin I High Sens 37 03/10/23 11:34: POC Glucose 146 H 03/10/23 16:09: POC Glucose 159 H 03/10/23 21:57: POC Glucose 153 H 03/11/23 05:12: Sodium 132 L, Potassium 4.0, Chloride 92 L, Carbon Dioxide 37.0 H, Anion Gap 3 L, BUN 22 H, Creatinine 1.13, Estim Creat Clear Calc 63.90, Est GFR (MDRD) Af Amer 82, Est GFR (MDRD) Non-Af 68, BUN/Creatinine Ratio 19.5, Glucose 124 H, Calcium 8.4 L Micro: Microbiology 03/09/23 22:35 Sputum, Expectorated/Coughed Gram Stain - Final 03/09/23 22:35 Sputum, Expectorated/Coughed Respiratory Culture - Preliminary Alpha Hemolytic Streptococcus 03/09/23 22:35 Mucosa - Nasopharyngeal Respiratory Panel (PCR) - Final 03/09/23 22:17 Urine, Clean Catch Streptococcus pneumoniae Antigen (M - Final 03/09/23 22:17 Urine, Clean Catch Legionella Antigen - Final 03/09/23 17:38 Nasal Secretion SARS-CoV-2 Antigen (Rapid) - Final Rhythm Strip Rhythm Strip: A-fib Rate: 90 Ectopy: None Physical Exam Const alert and oriented x3 Constitutional Narrative: Elderly male, resting comfortably in bedside chair, appears mildly fatigued, conversing normally, no acute distress. Initially with nasal cannula not in place, replaced during my encounter, no increased work of breathing noted. General Appearance: cooperative Orientation / Consciousness: lethargic HEENT normocephalic, head/scalp atraumatic, hearing grossly normal bilaterally, nasal mucous membranes and turbinates normal and moist oral mucous membranes Eyes PERRL, EOMs intact bilaterally and conjunctivae normal Neck full ROM, no lymphadenopathy and supple Lymph Lymphatic: no lymphadenopathy noted Chest inspection of chest normal Resp normal respiratory effort and no use of accessory muscles Resp Narrative: Decreased breath sounds in left lung base. Otherwise good air movement bilaterally. No wheezing, rhonchi or rales noted. Cardio regular rate, regular rhythm, no murmurs and peripheral pulses 2+ throughout GI normal to inspection, nondistended, normoactive bowel sounds, soft to palpation, non-tender and non-distended Back/Spine normal ROM Extremity normal to inspection and full ROM Extremity Narrative: +3-4 lower extremity pitting edema noted bilaterally up to the knee. Had both lower legs wrapped with Lefty bandage to help with compression. No erythema noted bilaterally. Peripheral Pulses: Yes pulses 2+ throughout Skin no rashes or lesions noted Psych mental status grossly normal Assessment & Plan Assessment/Plan (1) CHF exacerbation: PLAN: Plan The patient is a 73 y/o F w/ PMHx: CKD stage II, COPD not on home O2, Chronic AF s/p watchman device, Chronic Diastolic CHF, Valvular heart disease s/p TAVR, Chronic normocytic anemia, Hx Esophageal CA s/p chemoradiation, Diabetes melli tus type II with chronic neuropathy, Chronic migraines, Obesity, HTN, HLD, Tobacco use, Obesity, KEYSHAWN who presented to the [facility] ED on 03/09/23 with 2 to 3 weeks of worsening dyspnea and new onset hypoxia. #1. Acute Decompensated CHF: Mildly improved. CXR on admission notable for moderate-sized left-sided pleural effusion and small right pleural effusion, as well as increased vascular markings bilaterally. Home medication: Lasix 40 mg twice daily, has been adherent. Initiated on IV lasix 40 mg BID on admit. Repeat CXR 03/11 with moderate improvement in left-sided effusion, however continues to have increased vascular markings bilaterally. Continues to have +3-4 lower extremity pitting edema up to the knee. Continues to require 4 to 5 L of oxygen to maintain sats above 88%. Will increase to IV Lasix 80 mg twice daily today. Will recheck BMP tomorrow morning to ensure no severe metabolic alkalosis. Very low likelihood the patient will need thoracentesis, will restart Plavix tomorrow morning. Continue lower extremity Lefty wraps with elevation. Monitor on cardiac telemetry. Daily I's and O's, daily weights. #2. Moderate left-sided pleural effusion. Most likely secondary to heart failure as noted above. Repeat chest x-ray today shows improvement in effusion as noted above. Much lower likelihood for infectious or malignant process. Continue to monitor. #3. Chronic COPD: Not on home oxygen. Low concern for acute exacerbation. Denies any previous history of exacerbations. Does report some occasional yellow sputum but denies severe cough, recent fevers or chills, or wheezing. Pro-Elias on admission negative. Chest x-ray findings as noted above. Urine antigens negative. Respiratory PCR panel negative. COVID-negative. #4. Strep viridans pneumonia: Sputum culture positive for alpha hemolytic strep on 03/10. Initiated on ceftriaxone, however sensitivities show resistance to ceftriaxone. Will treat with 5-day course of Levaquin, stop date 03/15. #5 Right lower lobe nodule, resolved: Small possible nodule noted on admission chest x-ray. Would be a new nodule. Not noted on chest x-ray from 03/11. #6. Valvular heart disease: Status post TAVR, ECHO 02/07/2023 with normal LV size, normal LV systolic function, EF 60%, PASP 54 mmHg consistent with moderate pulmonary hypertension, peak AV gradient 22 mmHg, bioprosthetic AV functioning normal. #7. Chronic AF: Status post Watchman device (#26 mm S3 ROBERT valve), will temporarily hold Plavix as noted, resume if no intention for thoracentesis, will continue patient home diltiazem regimen. #8. Diabetes mellitus type II with chronic neuropathy: Hold oral home regimen, ADA diet, accu checks w/ ISS. #9. Hx Esophageal CA: S/p chemoradiation, from discussions with patient's unclear but do suspect patient is technically in remission #10. Hypertension: Continue home regimen including diltiazem, holding oral Lasix with temporary IV Lasix, PRN hydralazine. #11. Hyperlipidemia: Per most recent list not on statin therapy, FLP requested. #12. Chronic normocytic anemia: Admission hemoglobin 11.5, MCV 92.2, prior 02/17/2023 hemoglobin 11.3 although has vacillated previously and suspect following aggressive diuresis will alter, will continue to trend CBC. #13. Obesity: Weight loss and lifestyle changes encouraged. #14. Tobacco Abuse: Encouraged cessation, inpatient consultation per RT, NR if desired. #15. KEYSHAWN: BIPAP q HS given presentation. #16. DVT prophylaxis: SCDs, will hold chemoprophylaxis in case diuresis not effective and requires IR thoracentesis, add if seems to be improving and does not require IR involvement. Code status: DNRCCA-DNI Total clinical time spent by myself addressing the patient's medical issues, reviewing all of the data, and collaborating with patient's care team: 35 minutes. Charges/Coding Visit Charges Inpatient E&M: 31180 Subs Hosp L2
--- NOTE | 2023-03-11 08:26 | RAD_ITS ---
INDICATION: assess pleural effusion EXAMINATION/TECHNIQUE: X-RAY - XR Chest 1 View COMPARISON: 03/09/2023. FINDINGS: LINES/DEVICES: None. LUNGS: Decreased left pleural effusion and improved aeration of the left lower lung. Prominent interstitial markings and pulmonary vasculature is slightly worse than the previous exam particularly in right lower lung. MEDIASTINUM AND CARDIOVASCULAR STRUCTURES: Stable cardiomediastinal silhouette. BONES AND SOFT TISSUES: No demonstrated acute osseous changes. RAD/Chest 1 View (Portable) IMPRESSION: 1. Decreased left pleural effusion and improved aeration of the left lower lung. 2. Increased interstitial markings which may reflect pulmonary edema. Electronically Signed: Maco Greenberg MD at 13:01 EDT ,
[2023-03-11] MEDS: dilTIAZem CD 120 MG Capsule PO (08:46)
[2023-03-11] MEDS: Furosemide 100 MG/10 ML Vial 80 MG IV ×2 (08:46→18:18)
[2023-03-11] MEDS: Pantoprazole Sodium 40 MG Tablet PO (08:46)
[2023-03-11] MEDS: Potassium Chloride Oral Tablet 20 MEQ PO (08:46)
[2023-03-11] MEDS: 0.9% Saline Lock 10 ML Syringe IV (08:49)
[2023-03-11 09:29] LABS: Allen Test Positive; Base Excess 12 mmol/L (-2 to +2); Bicarbonate 37.5 mmol/L (22-26); Blood Gas Specimen Type ART; O2 Delivery Device Cannula; PO2 68 mmHG (75-100); SITE L Radial; SO2 92 % (95-99); Total Carbon Dioxide 40 mmol/L; pCO2 66.1 mmHg (35-45); pH 7.36 (7.35-7.45)
[2023-03-11] MEDS: Ceftriaxone 1 GM/50 ML BAG IV (10:19)
[2023-03-11] MEDS: Insulin Lispro 100 UNIT/ML INSULN.PEN SC (11:16)
[2023-03-11 11:36] LABS: Bedside Glucose 165 mg/dL (74-106)
[2023-03-11] MEDS: levoFLOXacin 750 MG Tablet PO (16:30)
[2023-03-11 16:51] LABS: Bedside Glucose 130 mg/dL (74-106)
[2023-03-11] MEDS: Senna/Docusate Sodium 1 Tablet 2 TABLET PO (21:53)
[2023-03-11 22:24] LABS: Bedside Glucose 148 mg/dL (74-106)
[2023-03-12] VITALS (18 sets, daily range): BP systolic 99–122; BP diastolic 65–82; PULSE 93–114; RESP 15–21; TEMP 36.2–36.7; O2SAT 93–100; BMI 26.9
--- NOTE | 2023-03-12 05:21 | CPS ---
when tx ended pt had to use the restroom, PEP not done
[2023-03-12] MEDS: Insulin Lispro 100 UNIT/ML INSULN.PEN SC ×2 (06:35→11:39)
[2023-03-12] MEDS: Ipratropium/Albuterol Sulfate 3 ML AMPUL.NEB INHALATION ×3 (06:49→19:07)
[2023-03-12 06:56] LABS: Bedside Glucose 169 mg/dL (74-106)
[2023-03-12 06:58] LABS: Anion Gap 4 (5-15); BUN 24 mg/dL (7-18); BUN/Creat Ratio 21.2 RATIO (10-20); Calcium,Total 8.8 mg/dL (8.5-10.1); Chloride 91 mmol/L (98-107); Creatinine, Serum 1.13 mg/dL (0.70-1.30); EST Glomerular Filtration Rate 68 mL/min (>60); Est Glom Filt Rate - Afr Amer 82 mL/min (>60); Glucose 180 mg/dL (74-106); Potassium 3.7 mmol/L (3.5-5.1); Sodium Level 133 mmol/L (136-145)
--- NOTE | 2023-03-12 08:12 | CPS ---
decreased O2 from 5LPM to 3LPM, patient remained 100%
--- NOTE | 2023-03-12 08:35 | US_ITS ---
PROCEDURE: ULTRASOUND GUIDED THORACENTESIS. DATE: March 12, 2023. INDICATION: Male, 73 years old. Left pleural effusion. PHYSICIAN: Richie Weir M.D. PROCEDURE: The risks, benefits, and alternatives to the procedure were explained to the patient and patient''s . The specific risks of bleeding, infection, and pneumothorax requiring chest tube insertion were discussed and accepted. Written informed consent was obtained. Ultrasonographic evaluation of the left lower pleural space was carried out. An adequate pocket was identified. The patient was placed in the sitting, upright position. The overlying skin was prepped and draped in sterile fashion. 1% lidocaine was administered subcutaneously for local anesthesia. Under ultrasound guidance, a 5 Romanian thoracentesis needle/catheter system was advanced into the left posterior lower pleural fluid collection. Approximately 640 mL of cloudy yellow fluid was drained. The catheter was removed, and a sterile dressing was applied. A specimen was collected and sent to the laboratory for analysis, as requested by the referring clinician. The patient tolerated the procedure well. A chest x-ray was ordered. US/Thoracentesis W US IMPRESSION: Ultrasound-guided left thoracentesis. Electronically Signed: Richie Weir MD at 14:18 EDT ,
--- NOTE | 2023-03-12 08:55 | RAD_ITS ---
STUDY: X-RAY CHEST REASON FOR EXAM: Male, 73 years old. Pleural effusion -- portable TECHNIQUE: Single AP portable view of the chest. COMPARISON: Comparison is made with prior study March 11, 2023. FINDINGS: EKG electrodes are seen. Stable pleural parenchymal changes at the left lung base. Increasing right pleural effusion with right basilar atelectasis superimposed on CHF. There is mild cardiac enlargement. Normal mediastinum and ines. Normal visualized pulmonary arteries. There is atherosclerotic calcification of the aortic arch with tortuosity. There are diffuse degenerative changes of the visualized thoracic spine. Normal visualized ribs, clavicles, and shoulders. There is no demonstrated abnormality of the visualized soft tissue structures of the upper abdomen. RAD/Chest 1 View (Portable) IMPRESSION: There is been a progression in the amount of CHF as well as progressive right pleural effusion and right basilar atelectasis. Stable left pleural-parenchymal change. Electronically Signed: Richie Weir MD at 9:34 EDT ,
[2023-03-12 09:10] LABS: AST(SGOT) 15 U/L (15-37); Alanine Aminotransfer ALT/SGPT 12 U/L (16-61); Albumin, Serum 2.3 g/dL (3.2-5.0); Alkaline Phosphatase 86 U/L (45-117); Globulin 6.3 g/dL (2.2-4.2); LDH 172 U/L (87-241); Protein, Total 8.6 g/dL (6.4-8.2)
[2023-03-12] MEDS: Potassium Chloride Oral Tablet 20 MEQ PO (09:42)
[2023-03-12] MEDS: Pantoprazole Sodium 40 MG Tablet PO (09:42)
[2023-03-12] MEDS: dilTIAZem CD 120 MG Capsule PO (09:42)
[2023-03-12] MEDS: 0.9% Saline Lock 10 ML Syringe IV ×4 (09:43→21:10)
[2023-03-12] MEDS: levoFLOXacin 750 MG Tablet PO (09:43)
[2023-03-12] MEDS: Furosemide 100 MG/10 ML Vial 80 MG IV ×2 (09:44→17:50)
[2023-03-12 11:21] LABS: Bedside Glucose 261 mg/dL (74-106)
--- NOTE | 2023-03-12 11:54 | FLU_PTH ---
PATIENT: JAYDE KYLE Jr. LOC: [facility] U#:[id number] AGE/SX: 73/M ROOM: [facility] RE03/09/[address]: Dr. Sweta Camacho DO : 1950 BED: 1 DIS: 03/14/2023 SPEC #: [id number] RECD: 03/13/23 09:02 STATUS: FAISAL [place] #: [id number] MANDI: 03/12/23 11:[address]: Sweta Camacho DEPT: CYTOLOGY RECD BY: Antonieta Robles ENTERED: 03/13/23 09:03 SP TYPE: Fluid OTHR DR: DO Dr. Casandra Nelson MD Dr. Loren Kirchner, MD Dr. Robert Leininger, MD Tissues: THORACIC FLUID Procedures: Special Stain Group II Surgery Specimen Level IV Cytospin Fluid HEADER OPERATION: Thoracentesis PRE-OP DIAGNOSIS: Left pleural effusion TISSUE SUBMITTED: Thoracentesis fluid for cytology DIAGNOSIS CYTOLOGY Thoracentesis fluid for cytology (cytospin and cell block): Negative for malignant cells. AM:higinio 03/16/2023 CYTOLOGY STUDY Slides are reviewed. CYTOLOGY GROSS Received is 80 ml of yellow milky, cloudy fluid labeled with the patient's name and and designated per the requisition as thoracentesis. Submitted for cytology preparation including cell block. / higinio 03/13/2023 TC:5 CPT: 50887, 77970
[2023-03-12] MEDS: Lidocaine 2% (20 ml mdv) 20 ML Vial INFILT (13:39)
--- NOTE | 2023-03-12 13:55 | RAD_ITS ---
STUDY: X-RAY CHEST REASON FOR EXAM: Male, 73 years old. Post thoracentesis TECHNIQUE: AP inspiration and expiration views. COMPARISON: Comparison is made with prior study dated March 12, 2023 at 8:56 AM. FINDINGS: The patient is status post left thoracentesis. No evidence of pneumothorax. Residual pleural parenchymal changes at the left lung base. RAD/Chest Insp/Exp 2 View IMPRESSION: Status post left thoracentesis. There is no evidence of pneumothorax. Residual pleural parenchymal changes are seen at the left lung base. Electronically Signed: Richie Weir MD at 14:12 EDT ,
[2023-03-12 14:36] LABS: Cytology, Body Fluid / CSF SEE PATHOLOGY REPORT
--- NOTE | 2023-03-12 14:49 | PCM.PN.HOSP ---
Reason for Visit Reason for Visit: Shortness of breath/worsening lower extremity edema Subjective Subjective Mr. Salamanca is a 73-year-old white male who presented to the emergency department at [facility] on 03/09/2023 with to 2 to 3-week history of increasing shortness of breath that was worse with exertion as well as orthopnea, PND, intermittent chest tightness, and increased sputum production that was yellow in color. The patient denied fever or chills on presentation. He denied sick contacts at the time of admission. Vital signs the emergency department showed T97.8, heart rate 91, BP 111/68, respiratory rate 22, and he was initially 89% upon room air however desaturated to 72% on room air improving to 94% on 3 L nasal cannula. CBC was overall unremarkable. An ABG was obtained and showed hypoxia but no significant CO2 retention and a normal pH at 7.4. BMP showed hyponatremia the sodium of 131 and hypochloremia with a chloride of 94 a serum bicarb of 34, and a BUN and creatinine of 26 and 1.30. Troponin was 31 and his BNP was elevated at 536. Chest x-ray showed a moderate left pleural effusion and a left lower lobe consolidation as well as a small right pleural effusion. EKG showed chronic atrial fibrillation with no evidence of acute ischemia. He was admitted to the telemetry floor and placed on Lasix for diuresis. His Plavix was held in the event that thoracentesis would need to be performed for his pleural effusion. On the day after admission he reported his breathing was slightly better however he felt that his legs were still considerably swollen and he was weaker than typical. His and his daughter both reported that his physical activity had decreased over the last several months. He has been sleeping in bed a good portion of the time at home. Family reports that he remains sleepy today. I did discuss with him the diagnosis of strep pneumo pneumonia and the change in antibiotics based on sensitivities. He had been on ceftriaxone which is usually a good drug to use for strep pneumo pneumonia however this particular strain is resistant he was transition to Levaquin last evening. He is received 1 dose. Patient and family voiced understanding. I also explained that his left pleural effusion seems to be persistent and not improving with diuresis and in the setting of a pneumonia we really needed to get the fluid off to make sure it was not infected fluid. They voiced understanding as well on this and agreed to thoracentesis today. Objective Data Objective Data Vital Signs: Vital Signs Temp Pulse Resp BP Pulse Ox O2 Del Method O2 Flow Rate 97.7 F L 102 H 16 99/65 100 Nasal Cannula 3 03/12/23 14:23 03/12/23 14:23 03/12/23 14:23 03/12/23 14:23 03/12/23 14:23 03/12/23 14:23 03/12/23 14:23 Oxygen Flow Rate (L/min) [4] 3 Oxygen Flow Rate (L/min) [3] 3 Oxygen Flow Rate (L/min) [2] 3 Oxygen Flow Rate (L/min) [1 ( 3 Initial Baseline)] Oxygen Flow Rate (L/min) 3 Oxygen Delivery Method [4] Nasal Cannula Oxygen Delivery Method [3] Nasal Cannula Oxygen Delivery Method [2] Nasal Cannula Oxygen Delivery Method [1 ( Nasal Cannula Initial Baseline)] Oxygen Delivery Method Nasal Cannula Weight: 90.1 kg Body Mass Index (BMI) 26.9 Intake & Output: Intake and Output for Last 24 Hours 03/10/23 03/11/23 03/12/23 23:59 23:59 23:59 Intake Total 570 / 810 890 / 1000 110 / 110 Output Total 1450 / 1450 1300 / 1300 940 / 940 Balance -880 / -640 -410 / -300 -830 / -830 Lab / Micro Data 03/10/23 03:19 03/12/23 05:23 Labs: Laboratory Results - last 24 hr 03/11/23 16:28: POC Glucose 130 H 03/11/23 21:58: POC Glucose 148 H 03/12/23 05:23: Sodium 133 L, Potassium 3.7, Chloride 91 L, Carbon Dioxide 38.0 H, Anion Gap 4 L, BUN 24 H, Creatinine 1.13, Estim Creat Clear Calc 63.90, Est GFR (MDRD) Af Amer 82, Est GFR (MDRD) Non-Af 68, BUN/Creatinine Ratio 21.2 H, Glucose 180 H, Calcium 8.8, Total Bilirubin 1.00, Direct Bilirubin 0.50 H, AST 15, ALT 12 L, Alkaline Phosphatase 86, Lactate Dehydrogenase 172, Total Protein 8.6 H, Albumin 2.3 L, Globulin 6.3 H 03/12/23 06:22: POC Glucose 169 H 03/12/23 11:00: POC Glucose 261 H Micro: Microbiology 03/09/23 22:35 Sputum, Expectorated/Coughed Gram Stain - Final 03/09/23 22:35 Sputum, Expectorated/Coughed Respiratory Culture - Final Streptococcus pneumoniae 03/09/23 22:35 Mucosa - Nasopharyngeal Respiratory Panel (PCR) - Final 03/09/23 22:17 Urine, Clean Catch Streptococcus pneumoniae Antigen (M - Final 03/09/23 22:17 Urine, Clean Catch Legionella Antigen - Final 03/09/23 17:38 Nasal Secretion SARS-CoV-2 Antigen (Rapid) - Final Radiography Diagnostic Testing: Radiology Impression Chest X-Ray 03/12/23 08:55 IMPRESSION: There is been a progression in the amount of CHF as well as progressive right pleural effusion and right basilar atelectasis. Stable left pleural-parenchymal change. Electronically Signed: Richie Weir MD at 9:34 EDT , Chest X-Ray 03/12/23 13:55 IMPRESSION: Status post left thoracentesis. There is no evidence of pneumothorax. Residual pleural parenchymal changes are seen at the left lung base. Electronically Signed: Richie Weir MD at 14:12 EDT , Rhythm Strip Rhythm Strip: A-fib Rate: 90 Ectopy: None Physical Exam Const no apparent distress, average body habitus and well nourished Constitutional Narrative: Older white male, sitting up in bed, appears older than stated age, sleepy but awake and interacts with family, interacts with me, appears comfortable at this time but ill HEENT head/scalp atraumatic and moist oral mucous membranes HEENT Narrative: Dentition is poor, Mallampati is 3, no thrush Head and Scalp: normocephalic Resp normal respiratory effort, no retractions and no use of accessory muscles Resp Narrative: Diminished bilateral bases left greater than right with crackles noted with auscultation moving more cranially in the lung mario, scattered rhonchi Auscultation: crackles and rhonchi; Negative for wheezes Cardio S1 normal heart sound, S2 normal heart sound, no gallops and no clicks; Negative for regular rate or regular rhythm Cardio Narrative: Irregularly irregular rhythm with mild tachycardia GI normal to inspection, nondistended, normoactive bowel sounds and soft to palpation Extremity Extremity Narrative: 2+ bilateral lower extremity edema that family reports is improving, no cyanosis or clubbing Neuro moves all extremities and no focal motor deficits Neuro Narrative: Severe generalized weakness noted Psych Psych Narrative: Affect is flattened patient appears very fatigued Assessment & Plan Assessment/Plan (1) Hypoxia: (2) CHF exacerbation: (3) Pleural effusion on left: (4) Fatigue: (5) Streptococcal pneumonia: (6) Haemophilus influenzae pneumonia: (7) Hyponatremia: (8) Chronic atrial fibrillation with RVR: PLAN: Plan Acute hypoxia-multifactorial -strep pneumo pneumonia/haemophilus influenza pneumonia/acute decompensated HFpEF/pleural effusion -Continue supplemental oxygen currently requiring 4 L nasal cannula to keep sats at 96% -Wean as able and I suspect that with thoracentesis later today this should improve ability to wean oxygen -Continue Levaquin day 2 of today -Thoracentesis with fluid studies as there is concern for parapneumonic effusion -Continue diuresis -Check CT chest tomorrow -Will need ambulatory pulse ox prior to discharge Left pleural effusion -Remains persistent despite diuresis -Thoracentesis later today -Fluid studies to rule out parapneumonic effusion with pneumonia -Will calculate lights criteria tomorrow--> may calculate out as exudative since has been on diuresis -Repeat chest x-ray in 48 hours to assess for reaccumulation or resolution Strep pneumo/haemophilus influenza -Strep pneumo was unfortunately resistant to ceftriaxone therefore transition from ceftriaxone to a Levaquin on 03/11/2023 -Will await sensitivities for haemophilus but Levaquin should cover -Day 2 of 7 for antibiotics Chronic atrial fibrillation with RVR -Patient with mild RVR and I suspect this is worsening his heart failure symptoms -Continue home Cardizem at 120 mg daily -Heart rates may be elevated due to acute illness -We will trial dig to 50 IV x 1 -Continue to monitor on telemetry -Patient with history of Watchman device and therefore is not anticoagulated Hyponatremia -Suspect related to hypervolemia -Slowly improving -Continue to monitor and if does not improve more rapidly or begins to become lower will need further workup Acute decompensated heart failure with preserved ejection fraction -Recent echocardiogram done on 02/27/2023 showed an EF of 60% with pulmonary artery systolic pressure of 54 mmHg and moderate pulmonary hypertension with a normally functioning bioprosthetic aortic valve -Continue Lasix IV push 80 mg twice daily -Closely monitor potassium and renal function -Fluid restricted and sodium restricted diet -Continue daily weights -Thus far patient is -1830 cc for the stay and his weight is down 2 kg History of aortic valve stenosis status post TAVR -Done at [facility] on 07/13/2018 -Valve appeared stable on recent echocardiogram -No current issues Fatigue -Check TSH -Check blood cultures -Check CT chest with history of esophageal cancer -Current worsening fatigue may be related to acute illness -Last cardiac catheterization was in 2018 and he had minimal coronary disease -Repeat CBC in a.m. COPD -Continue aerosols -Patient is not O2 dependent at baseline DM-2 -Hold metformin -Continue SSI -Cardiac/carbohydrate controlled diet -Continue to monitor History of esophageal cancer/GERD -Esophageal cancer is in remission -Check CT of the chest with fatigue CKD stage II -Creatinine is stable despite diuresis -Continue to monitor DVT prophylaxis -Start enoxaparin 40 daily CODE STATUS -DNR CCA with no intubation
[2023-03-12 15:07] LABS: Body Fluid Mononuclear WBC % 90.7 %; Body Fluid Polynuclear WBC # 0.069 10^3/uL; Body Fluid Polynuclear WBC % 9.3 %; Body Fluid Total Cells Counted 0.762 10^3/ul; Red Cell Count/Body Fluid 0.003 10^6/ul; White Blood Count/Body Fluid 0.749 10^3/uL
[2023-03-12 15:14] LABS: Allen Test Positive; Base Excess 18 mmol/L (-2 to +2); Bicarbonate 44.6 mmol/L (22-26); Blood Gas Specimen Type ART; O2 Delivery Device Cannula; PO2 124 mmHG (75-100); SITE L Radial; SO2 98 % (95-99); Total Carbon Dioxide 48 mmol/L; pCO2 98.2 mmHg (35-45); pH 7.27 (7.35-7.45)
--- NOTE | 2023-03-12 15:16 | PCM.HOSP.N ---
Hospitalist Note Called as patient has been more fatigued and lethargic today. Family states this is kind to how he has been at home. Will check ABG to rule out hypercapnia as an etiology and need for BiPAP. ABG did show hypercapnia with a pH of 7.27/pCO2 of 98.2 and a pO2 of 124. Start BiPAP with AVAPS mode to guarantee a tidal volume of 600. Repeat ABG in 2 hours. Patient appears to be oxygenating well so we can use minimal oxygen. Compared with ABG done yesterday significantly worse. pH yesterday was 7.36 with a pCO2 of 66 and a pO2 of 68. When compared to admission his pH was 7.4 with a pCO2 of 53.4 and a pO2 of 62. He clearly is oxygenating better since admission but he has been slowly retaining oxygen. I do suspect he has a component of sleep apnea so what I think we should do is keep him on CPAP continuous for right now until we can improve his hypercapnia and then once this resolves utilize BiPAP nocturnally.
[2023-03-12] MEDS: Digoxin 250 MCG/ML Ampul IV (15:53)
[2023-03-12 15:59] LABS: Glucose, Body Fluid 214 mg/dL (40-70); LDH,Body Fluid 83 Units/L (Not Establ.); Protein, Body Fluid 3.7 g/dL (Not Establ.)
[2023-03-12 16:41] LABS: Bedside Glucose 139 mg/dL (74-106)
[2023-03-12 16:45] LABS: Appearance/Body Fluid CLOUDY; Auto B Fluid Analyzer BKGD Ct COUNTS W/IN LIMITS (W/IN LIMITS); Body Fluid QC Type(s) BF2Q; Color/Body Fluid YELLOW; Lymphocytes 70 %; Monocytes 8 %; Neutrophil (Segs) 22 %; Source- Body Fluid THORACENTESIS
[2023-03-12 17:47] LABS: Base Excess 22 mmol/L (-2 to +2); Bicarbonate 46.3 mmol/L (22-26); Blood Gas Specimen Type ART; Comment AVAPS; FI02 30; O2 Delivery Device BiPAP; PEEP 8; PO2 69 mmHG (75-100); RR 20; SITE R Brach; SO2 94 % (95-99); Total Carbon Dioxide 48 mmol/L; Vt 600; pH 7.46 (7.35-7.45)
[2023-03-12] MEDS: Enoxaparin 40 MG/0.4 ML Syringe SC (17:51)
--- NOTE | 2023-03-12 17:52 | CT_ITS ---
STUDY: CT BRAIN WITHOUT CONTRAST REASON FOR EXAM: Male, 73 years old. lethargy RADIATION DOSAGE (If Supplied By Facility): CTDIvol = ( 44.99 ) mGy, DLP = ( 880.47 ) mGycm TECHNIQUE: Transaxial CT imaging of the brain was performed without administration of intravenous contrast material. Individualized dose optimization techniques were used for this CT. COMPARISON: 12/23/2019 FINDINGS: Normal soft tissue structures. Normal calvarium. Normal size ventricles and extra-axial spaces for the patient''s age. Normal white matter tracts of the cerebral hemispheres. Normal basal ganglia and thalami. Normal brainstem. Normal cerebellum. There is no intracranial hemorrhage. There are no findings of an acute ischemic infarction. Normal visualized paranasal sinuses. CT/Brain/Head without Contrast IMPRESSION: Normal unenhanced CT scan of the brain. Electronically Signed: Jonatan Peralta MD at 19:09 EDT ,
--- NOTE | 2023-03-12 18:41 | PCM.HOSP.N ---
Hospitalist Note Repeat ABG much improved with normalized pH to 7.46. Pt still very somnolent. Stat CT and ammonia level is pending at this time.
--- NOTE | 2023-03-12 20:32 | CPS ---
Pt still not responding appropriately, on bipap. Pep unable to be done at this point
[2023-03-12 20:40] LABS: Absolute Lymphocyte Count 0.95 X10^3/uL (0.83-4.51); Absolute Neutrophil Count 6.5 X10^3/uL (2.0-7.7); Basophil# 0.02 X10^3/uL; Basophil% 0.2 % (0-1); Eosinophil# 0.02 X10^3/uL; Eosinophils% 0.2 % (0-5); Hematocrit 35.8 % (40-54); Hemoglobin 10.7 g/dL (13.0-16.5); Lymphocyte # 0.95 X10^3/ul (0.83-4.51); Mean Corp Hgb Conc 29.9 g/dL (32-36); Mean Corpuscular Hgb 27.8 pg (27.0-32.0); Mean Platelet Vol. 10.6 fl (6.2-12.0); Monocyte# 1.08 X10^3/uL; Monocyte% 12.5 % (0-10); NRBC Flagged by Analyzer 0 % (0-5); Neutrophil # 6.52 X10^3/uL (2.7-7.7); Neutrophil % 75.6 % (47-70); Platelet Count 289 K/mm3 (150-450); RBC Distribution Width CV 17.3 % (11.6-14.6); RBC Distribution Width SD 58.2 fl (35.1-43.9); Red Blood Count 3.85 M/mm3 (4.6-6.2); White Blood Count 8.6 K/mm3 (4.4-11.0)
[2023-03-12 21:00] LABS: Anion Gap 3 (5-15); BUN 21 mg/dL (7-18); BUN/Creat Ratio 20.4 RATIO (10-20); Calcium,Total 8.9 mg/dL (8.5-10.1); Chloride 90 mmol/L (98-107); Creatinine, Serum 1.03 mg/dL (0.70-1.30); EST Glomerular Filtration Rate 75 mL/min (>60); Est Glom Filt Rate - Afr Amer 91 mL/min (>60); Estimated Creatinine Clearance 70.11 ml/min; Glucose 117 mg/dL (74-106); Potassium 3.8 mmol/L (3.5-5.1); Sodium Level 135 mmol/L (136-145)
[2023-03-12 21:32] LABS: Bedside Glucose 108 mg/dL (74-106)
[2023-03-13] VITALS (14 sets, daily range): BP systolic 110–114; BP diastolic 67–78; PULSE 84–104; RESP 16–21; TEMP 36.3–37.2; O2SAT 83–99; BMI 25.2
[2023-03-13 05:21] LABS: Absolute Lymphocyte Count 0.89 X10^3/uL (0.83-4.51); Absolute Neutrophil Count 5.9 X10^3/uL (2.0-7.7); Basophil# 0.03 X10^3/uL; Basophil% 0.4 % (0-1); Eosinophil# 0.09 X10^3/uL; Eosinophils% 1.1 % (0-5); Hematocrit 32.1 % (40-54); Hemoglobin 9.8 g/dL (13.0-16.5); Lymphocyte # 0.89 X10^3/ul (0.83-4.51); Lymphocyte % 11.1 % (19-41); Mean Corp Hgb Conc 30.5 g/dL (32-36); Mean Corpuscular Hgb 28.2 pg (27.0-32.0); Mean Corpuscular Volume 92.2 fL (80-94); Mean Platelet Vol. 10.7 fl (6.2-12.0); Monocyte# 1.07 X10^3/uL; Monocyte% 13.4 % (0-10); NRBC Flagged by Analyzer 0 % (0-5); Neutrophil % 73.6 % (47-70); Platelet Count 280 K/mm3 (150-450); RBC Distribution Width CV 17.3 % (11.6-14.6); RBC Distribution Width SD 57.2 fl (35.1-43.9); Red Blood Count 3.48 M/mm3 (4.6-6.2)
[2023-03-13 06:04] LABS: Anion Gap 2 (5-15); BUN 20 mg/dL (7-18); BUN/Creat Ratio 20.2 RATIO (10-20); Calcium,Total 8.7 mg/dL (8.5-10.1); Chloride 91 mmol/L (98-107); Creatinine, Serum 0.99 mg/dL (0.70-1.30); EST Glomerular Filtration Rate 79 mL/min (>60); Est Glom Filt Rate - Afr Amer 95 mL/min (>60); Estimated Creatinine Clearance 72.94 ml/min; Glucose 130 mg/dL (74-106); Magnesium 1.9 mg/dL (1.6-2.6); Potassium 3.8 mmol/L (3.5-5.1); Sodium Level 134 mmol/L (136-145)
[2023-03-13 06:35] LABS: Phosphorus 2.2 mg/dL (2.5-4.9)
[2023-03-13 06:37] LABS: Bedside Glucose 136 mg/dL (74-106)
[2023-03-13] MEDS: Ipratropium/Albuterol Sulfate 3 ML AMPUL.NEB INHALATION ×3 (06:55→22:02)
--- NOTE | 2023-03-13 07:00 | CT_ITS ---
INDICATION: hypoxia. THORACENTESIS YESTERDAY EXAMINATION: CT CHEST WITHOUT CONTRAST TECHNIQUE: Helically acquired images were obtained of the chest with sagittal and coronal reconstructed images. Individualized dose optimization techniques were used for this CT. COMPARISON: 03/19/2022 CT. FINDINGS: LUNGS, PLEURA AND LARGE AIRWAYS: No consolidation or edema. No pulmonary nodule. Small bilateral pleural effusions. Bibasilar atelectasis versus infiltrates. No pneumothorax. Centrilobular emphysematous changes. THYROID: Unremarkable. HEART AND PERICARDIUM: Cardiomegaly. Coronary artery calcifications are present. Again seen are prosthetic mitral and aortic valves. No pericardial effusion. MEDIASTINUM AND MONTSERRAT: Stable prominent mediastinal lymph nodes. Esophagus is unremarkable. No hiatal hernia. VESSELS: No thoracic aortic aneurysm. UPPER ABDOMEN: Mild ascites. Calcified gallstone. Calcifications in the spleen consistent with benign old granulomatous disease. BONES: No focal osseous abnormality. CT/Chest without Contrast IMPRESSION: 1. No evidence of a pneumothorax. 2. Small bilateral pleural effusions. 3. Bibasilar atelectasis versus infiltrates. 4. Cardiomegaly. 5. Mild ascites in the partially visualized upper abdomen. 6. Cholelithiasis. Electronically Signed: Ming Escobar DO at 8:04 EDT ,
[2023-03-13] MEDS: Potassium Chloride Oral Tablet 20 MEQ PO (09:00)
[2023-03-13] MEDS: 0.9% Saline Lock 10 ML Syringe IV (10:35)
[2023-03-13] MEDS: Furosemide 40 MG Tablet PO ×2 (10:42→17:48)
[2023-03-13] MEDS: Enoxaparin 40 MG/0.4 ML Syringe SC (10:42)
[2023-03-13] MEDS: Pantoprazole Sodium 40 MG Tablet PO (10:42)
[2023-03-13] MEDS: dilTIAZem CD 120 MG Capsule PO (10:43)
[2023-03-13] MEDS: Insulin Lispro 100 UNIT/ML INSULN.PEN SC ×2 (10:43→21:30)
--- NOTE | 2023-03-13 11:27 | CASEMGMT ---
Discharge Planning HH list created and given to RN MAUREEN. Pema Sellers, Discharge Planning Asst.
[2023-03-13 11:42] LABS: Bedside Glucose 226 mg/dL (74-106)
--- NOTE | 2023-03-13 11:50 | PCM.PN.HOSP ---
Reason for Visit Reason for Visit: Shortness of breath/worsening lower extremity edema Subjective Subjective Remedy edema is much better. Patient's mental status had resolved last evening and returned to baseline after we performed a CT of his brain. He was awake and able to eat independently this morning and his stated he walked out to the hallway and back. We did discuss his possible need for placement at discharge and they are adamant they will take him home. They are amenable to home health at discharge. He did wear the BiPAP without any difficulty and I discussed further the importance of maybe getting this treated at home. This may help his home fatigue if he does have sleep apnea that is untreated. We will look into getting him a trilogy at discharge as he does appear to have chronic hypercapnia based on his ABG done on admission. Case management to review with [facility]. No current issues. Objective Data Objective Data Vital Signs: Vital Signs Temp Pulse Resp BP Pulse Ox O2 Del Method O2 Flow Rate 97.9 F 96 20 H 110/78 95 Nasal Cannula 4 03/13/23 02:30 03/13/23 06:55 03/13/23 06:55 03/13/23 02:30 03/13/23 10:15 03/13/23 06:55 03/13/23 10:15 FiO2 30 03/13/23 04:51 Oxygen Flow Rate (L/min) [4] 3 Oxygen Flow Rate (L/min) [3] 3 Oxygen Flow Rate (L/min) [2] 3 Oxygen Flow Rate (L/min) [1 ( 3 Initial Baseline)] Oxygen Flow Rate (L/min) 4 Oxygen Delivery Method [4] Nasal Cannula Oxygen Delivery Method [3] Nasal Cannula Oxygen Delivery Method [2] Nasal Cannula Oxygen Delivery Method [1 ( Nasal Cannula Initial Baseline)] Oxygen Delivery Method Nasal Cannula Weight: 84.2 kg Body Mass Index (BMI) 25.2 Intake & Output: Intake and Output for Last 24 Hours 03/11/23 03/12/23 03/13/23 23:59 23:59 23:59 Intake Total 890 / 1000 230 / 230 50 / 50 Output Total 1300 / 1300 1590 / 1590 Balance -410 / -300 -1360 / -1360 50 / 50 Lab / Micro Data 03/13/23 05:03 03/13/23 05:03 Labs: Laboratory Results - last 24 hr 03/12/23 16:20: POC Glucose 139 H 03/12/23 18:20: Ammonia 41.0 H 03/12/23 20:32: WBC 8.6, RBC 3.85 L, Hgb 10.7 L, Hct 35.8 L, MCV 93.0, MCH 27.8, MCHC 29.9 L, RDW Std Deviation 58.2 H, RDW Coeff of Rachell 17.3 H, Plt Count 289, MPV 10.6, Immature Gran % (Auto) 0.500, Neut % (Auto) 75.6 H, Lymph % (Auto) 11.0 L, [place] % (Auto) 12.5 H, Eos % (Auto) 0.2, Baso % (Auto) 0.2, Absolute Neuts (auto) 6.5, Absolute Lymphs (auto) 0.95, Nucleated RBC % 0, Sodium 135 L, Potassium 3.8, Chloride 90 L, Carbon Dioxide 42.0 H, Anion Gap 3 L, BUN 21 H, Creatinine 1.03, Estim Creat Clear Calc 70.11, Est GFR (MDRD) Af Amer 91, Est GFR (MDRD) Non-Af 75, BUN/Creatinine Ratio 20.4 H, Glucose 117 H, Calcium 8.9 03/12/23 21:09: POC Glucose 108 H 03/12/23 : Fluid Source THORACENTESIS, Fluid Color YELLOW, Fluid Appearance CLOUDY, Fluid WBC 0.749, Fluid RBC 0.003, Fluid Tot Cell Count 0.762, Fld Polynuclear WBCs # 0.069, Fld Polynuclear WBCs % 9.3, Fluid Mononuclear WBCs 0.680, Fld Mononuclear WBCs % 90.7, Fluid Neutrophils 22, Fluid Lymphocytes 70, Fluid Monocytes 8, Fl Pathologist Comment May follow, Fluid Glucose 214 H, Fluid Total Protein 3.7, Fluid LDH 83, Fluid Comment 2 SEE COMMENT 03/13/23 05:03: WBC 8.0, RBC 3.48 L, Hgb 9.8 L, Hct 32.1 L, MCV 92.2, MCH 28.2, MCHC 30.5 L, RDW Std Deviation 57.2 H, RDW Coeff of Rachell 17.3 H, Plt Count 280, MPV 10.7, Immature Gran % (Auto) 0.400, Neut % (Auto) 73.6 H, Lymph % (Auto) 11.1 L, [place] % (Auto) 13.4 H, Eos % (Auto) 1.1, Baso % (Auto) 0.4, Absolute Neuts (auto) 5.9, Absolute Lymphs (auto) 0.89, Nucleated RBC % 0, Sodium 134 L, Potassium 3.8, Chloride 91 L, Carbon Dioxide 41.0 H, Anion Gap 2 L, BUN 20 H, Creatinine 0.99, Estim Creat Clear Calc 72.94, Est GFR (MDRD) Af Amer 95, Est GFR (MDRD) Non-Af 79, BUN/Creatinine Ratio 20.2 H, Glucose 130 H, Calcium 8.7, Phosphorus 2.2 L, Magnesium 1.9 03/13/23 06:16: POC Glucose 136 H 03/13/23 10:22: POC Glucose 226 H Micro: Microbiology 03/12/23 Unknown Fluid - Thoracentesis Fluid Gram Stain - Final 03/09/23 22:35 Sputum, Expectorated/Coughed Gram Stain - Final 03/09/23 22:35 Sputum, Expectorated/Coughed Respiratory Culture - Final Streptococcus pneumoniae Haemophilus influenzae 03/09/23 22:35 Mucosa - Nasopharyngeal Respiratory Panel (PCR) - Final 03/09/23 22:17 Urine, Clean Catch Streptococcus pneumoniae Antigen (M - Final 03/09/23 22:17 Urine, Clean Catch Legionella Antigen - Final 03/09/23 17:38 Nasal Secretion SARS-CoV-2 Antigen (Rapid) - Final ABG Data ABG results: ABG 03/12/23 03/12/23 15:10 17:44 Specimen Type ART ART Sample Site L Radial R Brach pH 7.27 L 7.46 H Bicarbonate Actual 44.6 H 46.3 H Total CO2 48 48 Base Excess 18 H 22 H O2 Saturation 98 94 L O2 % 30 ABG pCO2 98.2 H* 65.0 H ABG pO2 124 H 69 L Graeme Test Positive Respiration Rate 20 O2 Delivery Device Cannula BiPAP Liter Flow 2.0 Tidal Volume 600 POC PEEP 8 Crit Call To/Read Back Yes Blood Gas Notified Whom BIANKA Clinical Comments AVAPS Radiography Diagnostic Testing: Radiology Impression Chest X-Ray 03/12/23 13:55 IMPRESSION: Status post left thoracentesis. There is no evidence of pneumothorax. Residual pleural parenchymal changes are seen at the left lung base. Electronically Signed: Richie Weir MD at 14:12 EDT , Brain CT 03/12/23 17:52 IMPRESSION: Normal unenhanced CT scan of the brain. Electronically Signed: Jonatan Peralta MD at 19:09 EDT , Chest CT 03/13/23 07:00 IMPRESSION: 1. No evidence of a pneumothorax. 2. Small bilateral pleural effusions. 3. Bibasilar atelectasis versus infiltrates. 4. Cardiomegaly. 5. Mild ascites in the partially visualized upper abdomen. 6. Cholelithiasis. Electronically Signed: Ming Escobar DO at 8:04 EDT , Rhythm Strip Rhythm Strip: A-fib Rate: 90 Ectopy: None Physical Exam Const no apparent distress, average body habitus and well nourished Constitutional Narrative: Older white male, sitting up in a chair, appears older than stated age, sleeping soundly, peers comfortable, nontoxic General Appearance: cooperative Orientation / Consciousness: lethargic HEENT normocephalic, head/scalp atraumatic and moist oral mucous membranes Eyes PERRL and EOMs intact bilaterally Eyes Narrative: Conjunctiva are pale bilaterally mildly, no scleral icterus Neck no lymphadenopathy and supple Neck Narrative: Trachea midline, no rate event Resp normal respiratory effort, no retractions and no use of accessory muscles Resp Narrative: Diminished bilaterally, cough is rhonchorous, no adventitious sounds noted today Auscultation: Negative for crackles, rhonchi or wheezes Cardio regular rate, S1 normal heart sound, S2 normal heart sound, no murmurs, no rub, no gallops and no clicks; Negative for regular rhythm Cardio Narrative: Irregularly irregular rhythm with normal rate GI normal to inspection, nondistended, normoactive bowel sounds, soft to palpation and non-tender Extremity Extremity Narrative: Trace bilateral lower extremity pitting edema, no cyanosis or clubbing Skin no wounds, skin turgor normal, no jaundice, no petechiae and no mottling Neuro Neuro Narrative: Patient is sleeping soundly at this time Psych Psych Narrative: Able to assess as patient is currently sleeping Assessment & Plan Assessment/Plan (1) Hypoxia: (2) CHF exacerbation: (3) Pleural effusion on left: (4) Fatigue: (5) Streptococcal pneumonia: (6) Haemophilus influenzae pneumonia: (7) Hyponatremia: (8) Chronic atrial fibrillation with RVR: (9) Acute hypercapnic respiratory failure: (10) Toxic metabolic encephalopathy: (11) Debility: PLAN: Plan Acute hypercapnic respiratory failure -Resolved -ABG yesterday showed a pH of 7.27 with a pCO2 of 98--> baseline pCO2 appears to be between 50 and 60 -Likely multifactorial from untreated KEYSHAWN, COPD, pleural effusion, pneumonia, heart failure -Resolved quickly with BiPAP -Will continue BiPAP with naps and nocturnally -Will have case management discussed possible discharge with trilogy if qualifies through the [facility] Acute metabolic/toxic encephalopathy -This was secondary to hypercapnia and a pH of 7.27 with a pCO2 of 98.2 -Resolved Acute hypoxia-multifactorial -strep pneumo pneumonia/haemophilus influenza pneumonia/acute decompensated HFpEF/pleural effusion -Continue supplemental oxygen currently requiring 4 L nasal cannula to keep sats at 96% -Wean as able and I suspect that with thoracentesis later today this should improve ability to wean oxygen -Continue Levaquin day 3 of 7 today -Thoracentesis with fluid studies as there is concern for parapneumonic effusion -Continue diuresis but transition back to home oral medication -Will need ambulatory pulse ox prior to discharge Transudative left pleural effusion -Based on lights criteria this is a transudative effusion despite diuresis -640 cc removed from left side on 03/12/2023 -Cultures are pending -Follow-up CT looks like there is improved aeration of the left lower lobe with slight residual effusion and compressive atelectasis versus infiltrate -Will need to monitor for reaccumulation Strep pneumo/haemophilus influenza -Strep pneumo was unfortunately resistant to ceftriaxone therefore transition from ceftriaxone to a Levaquin on 03/11/2023 -Was on Levaquin but became confused therefore Levaquin discontinued and transition to Teflaro -ID consult pending -Day 3 for antibiotics Chronic atrial fibrillation with RVR -Patient with mild RVR and I suspect this is worsening his heart failure symptoms -Continue home Cardizem at 120 mg daily -Heart rates are better today today -He did receive one-time dose of digoxin 500 mg yesterday -Continue to monitor on telemetry -Patient with history of Watchman device and therefore is not anticoagulated Debility -Patient is being followed by physical and Occupational Therapy -Family is adamant that they will take him home at discharge -Are amenable to home health--> discussed with case management and they will start this process -Was able to ambulate 120 feet today with contact-guard assist Anemia -Baseline is unclear however on arrival his hemoglobin was 11.3 -Down to 9.8 today -Repeat at noon -Check Hemoccult stool with history of GI bleeding Hyponatremia -Stable at 134 -This may be somewhat chronic as he has had no lab here since to 2020 until this admission Acute decompensated heart failure with preserved ejection fraction -Recent echocardiogram done on 02/27/2023 showed an EF of 60% with pulmonary artery systolic pressure of 54 mmHg and moderate pulmonary hypertension with a normally functioning bioprosthetic aortic valve -Transition from IV Lasix to oral Lasix 40 mg p.o. twice daily which is his home dose -Closely monitor potassium and renal function -Fluid restricted and sodium restricted diet -Continue daily weights -Thus far patient is -3000 cc for the stay and his weight is down 8 kg -With a white differential I do question either the accuracy of the weight from today or the accuracy of I's and O's History of aortic valve stenosis status post TAVR -Done at [facility] on 07/13/2018 -Valve appeared stable on recent echocardiogram -No current issues Fatigue -TSH is within normal limits -Blood cultures are pending -No malignancy noted on CT -Current worsening fatigue may be related to acute illness he also has untreated sleep apnea which may improve daytime fatigue if he has this treated -Last cardiac catheterization was in 2018 and he had minimal coronary disease -Repeat CBC in a.m. COPD -Continue aerosols -Patient is not O2 dependent at baseline DM-2 -Hold metformin -Continue SSI -Cardiac/carbohydrate controlled diet -Continue to monitor History of esophageal cancer/GERD -Esophageal cancer is in remission -Check CT of the chest with fatigue CKD stage II -Creatinine is stable despite diuresis -Continue to monitor KEYSHAWN -Patient was diagnosed in 2009 but did not like the mask so has been untreated -May be contributing to his worsening fatigue -Will see if he qualifies for home trilogy if not will need outpatient sleep study -Continue BiPAP while hospitalized with naps and nocturnally DVT prophylaxis -Continue enoxaparin 40 daily CODE STATUS -DNR CCA with no intubation Charges/Coding Visit Charges Inpatient E&M: 77322 Subs Hosp L3
[2023-03-13 12:12] LABS: Hemoglobin 9.9 g/dL (13.0-16.5)
--- NOTE | 2023-03-13 13:05 | PCM.CONS.GEN ---
Assessment & Plan Assessment/Plan (1) Acute hypercapnic respiratory failure: PLAN: Treating for pneumonia. Sputum cx with s.pneumo and h.flu. Will narrow ceftaroline to unasyn given that strep was susc to PCN (just not at meningitis-dosing) and h.flu was beta lactamase neg. Plan on discharge to complete short course po augmentin as long as he continues to improve. Likely will need at least 7 days total of abx. Will follow, thank you (2) Haemophilus influenzae pneumonia: (3) Streptococcal pneumonia: HPI Consult Data Date of Consult: 03/13/23 HPI Narrative Reason for Consultation: pneumonia HPI Narrative: JAYDE KYLE, is a 73 M with h/o CKD, COPD, afib, CHF, TAVR, DM, presented 03/09 with 2-3 progressive dyspnea, cough with yellow sputum. Denies any fever or chills. No sick contacts, no recent abx. Breathing is worse when lying flat. Came to ED, found to have effusion, LLL pneumonia. Initially given ceftriaxone. Thoracentesis done. Abx change to levaquin, then to ceftaroline due to susceptibility results and altered mental status on levaquin. Feeling better this afternoon. Family at bedside provided additional history. Full ROS performed and neg except as noted above. [facility] Medical History Chronic atrial fibrillation Chronic bronchitis Chronic diastolic (congestive) heart failure Chronic kidney disease COPD (chronic obstructive pulmonary disease) Diabetes mellitus type 2, uncontrolled Diabetic neuropathy associated with type 2 diabetes mellitus Esophageal cancer (~2012) Hearing problem History of aortic stenosis History of blood transfusion History of transcatheter aortic valve replacement (TAVR) (~07/13/18) Hyperlipidemia Hypertension Migraines Nicotine dependence Non-rheumatic aortic stenosis Obesity Obstructive sleep apnea Patent foramen ovale Phimosis Pleural effusion Status post chemoradiation Stroke-like symptoms Ulcer Home Medications clopidogrel 75 mg tablet (Plavix) 75 mg PO DAILY 04/02/20 [History Last Taken 03/09/23] pantoprazole 40 mg tablet,delayed release 40 mg PO DAILY 04/02/20 [History Last Taken 03/09/23] metformin 500 mg tablet 500 mg PO BID diabetes 10/16/22 [History Last Taken 03/09/23] potassium chloride 10 mEq capsule,extended release 20 meq (2 x 10 mEq) PO DAILY #180 caps 01/12/23 [Rx Last Taken 03/09/23] furosemide 40 mg tablet 40 mg PO BID PRN edema #60 tabs 01/27/23 [Rx Last Taken 03/09/23] Allergy/AdvReac Type Severity Reaction Status Date / Time Seasonal Allergies: Uncoded Allergy NEEDS Verified 03/09/23 17:01 FOLLOW-UP Family History Mother CVA (cerebral vascular accident) Hypertension Father CVA (cerebral vascular accident) Hypertension Sister Diabetes Brother Heart disease Cancer Liver disease Surgical History (Updated 03/09/23 @ 21:[address] Casandra Lucia MD) History of appendectomy History of left heart catheterization (12/29/17) History of umbilical hernia repair Presence of Watchman left atrial appendage closure device (07/13/18) S/P TAVR (transcatheter aortic valve replacement) Social History (Updated 03/09/23 @ 21:[address] Casandra Lucia MD) household members: spouse and family Smoking Status: Current every day smoker tobacco type: cigarettes Tobacco: How many years used: 50 Electronic Cigarette Use: not used second hand exposure: No alcohol intake: never substance use type: does not use Physical Exam Const alert and no apparent distress General Appearance: cooperative HEENT normocephalic and head/scalp atraumatic Eyes PERRL and EOMs intact bilaterally Neck supple and No nodes Resp Auscultation: diminished lung sounds Cardio regular rate and regular rhythm GI soft to palpation, non-tender and non-distended Extremity General Extremity: edema Skin no rashes or lesions noted Neuro CN's II-XII intact bilaterally Lab / Micro Data Attestation: I reviewed the patient's lab results. 03/13/23 12:04 03/13/23 05:03 Labs: Laboratory Results - last 24 hr 03/12/23 16:20: POC Glucose 139 H 03/12/23 18:20: Ammonia 41.0 H 03/12/23 20:32: WBC 8.6, RBC 3.85 L, Hgb 10.7 L, Hct 35.8 L, MCV 93.0, MCH 27.8, MCHC 29.9 L, RDW Std Deviation 58.2 H, RDW Coeff of Rachell 17.3 H, Plt Count 289, MPV 10.6, Immature Gran % (Auto) 0.500, Neut % (Auto) 75.6 H, Lymph % (Auto) 11.0 L, [place] % (Auto) 12.5 H, Eos % (Auto) 0.2, Baso % (Auto) 0.2, Absolute Neuts (auto) 6.5, Absolute Lymphs (auto) 0.95, Nucleated RBC % 0, Sodium 135 L, Potassium 3.8, Chloride 90 L, Carbon Dioxide 42.0 H, Anion Gap 3 L, BUN 21 H, Creatinine 1.03, Estim Creat Clear Calc 70.11, Est GFR (MDRD) Af Amer 91, Est GFR (MDRD) Non-Af 75, BUN/Creatinine Ratio 20.4 H, Glucose 117 H, Calcium 8.9 03/12/23 21:09: POC Glucose 108 H 03/12/23 : Fluid Source THORACENTESIS, Fluid Color YELLOW, Fluid Appearance CLOUDY, Fluid WBC 0.749, Fluid RBC 0.003, Fluid Tot Cell Count 0.762, Fld Polynuclear WBCs # 0.069, Fld Polynuclear WBCs % 9.3, Fluid Mononuclear WBCs 0.680, Fld Mononuclear WBCs % 90.7, Fluid Neutrophils 22, Fluid Lymphocytes 70, Fluid Monocytes 8, Fl Pathologist Comment May follow, Fluid Glucose 214 H, Fluid Total Protein 3.7, Fluid LDH 83, Fluid Comment 2 SEE COMMENT 03/13/23 05:03: WBC 8.0, RBC 3.48 L, Hgb 9.8 L, Hct 32.1 L, MCV 92.2, MCH 28.2, MCHC 30.5 L, RDW Std Deviation 57.2 H, RDW Coeff of Rachell 17.3 H, Plt Count 280, MPV 10.7, Immature Gran % (Auto) 0.400, Neut % (Auto) 73.6 H, Lymph % (Auto) 11.1 L, [place] % (Auto) 13.4 H, Eos % (Auto) 1.1, Baso % (Auto) 0.4, Absolute Neuts (auto) 5.9, Absolute Lymphs (auto) 0.89, Nucleated RBC % 0, Sodium 134 L, Potassium 3.8, Chloride 91 L, Carbon Dioxide 41.0 H, Anion Gap 2 L, BUN 20 H, Creatinine 0.99, Estim Creat Clear Calc 72.94, Est GFR (MDRD) Af Amer 95, Est GFR (MDRD) Non-Af 79, BUN/Creatinine Ratio 20.2 H, Glucose 130 H, Calcium 8.7, Phosphorus 2.2 L, Magnesium 1.9 03/13/23 06:16: POC Glucose 136 H 03/13/23 10:22: POC Glucose 226 H 03/13/23 12:04: Hgb 9.9 L Micro: Microbiology 03/12/23 Unknown Fluid - Thoracentesis Fluid Gram Stain - Final 03/09/23 22:35 Sputum, Expectorated/Coughed Gram Stain - Final 03/09/23 22:35 Sputum, Expectorated/Coughed Respiratory Culture - Final Streptococcus pneumoniae Haemophilus influenzae ABG Data ABG results: ABG 03/12/23 03/12/23 15:10 17:44 Specimen Type ART ART Sample Site L Radial R Brach pH 7.27 L 7.46 H Bicarbonate Actual 44.6 H 46.3 H Total CO2 48 48 Base Excess 18 H 22 H O2 Saturation 98 94 L O2 % 30 ABG pCO2 98.2 H* 65.0 H ABG pO2 124 H 69 L Graeme Test Positive Respiration Rate 20 O2 Delivery Device Cannula BiPAP Liter Flow 2.0 Tidal Volume 600 POC PEEP 8 Crit Call To/Read Back Yes Blood Gas Notified Whom BIANKA Clinical Comments AVAPS Rhythm Strip Rhythm Strip: A-fib Rate: 90 Ectopy: None Radiology Impression Chest X-Ray 03/12/23 13:55 IMPRESSION: Status post left thoracentesis. There is no evidence of pneumothorax. Residual pleural parenchymal changes are seen at the left lung base. Electronically Signed: Richie Weir MD at 14:12 EDT , Brain CT 03/12/23 17:52 IMPRESSION: Normal unenhanced CT scan of the brain. Electronically Signed: Jonatan Peralta MD at 19:09 EDT , Chest CT 03/13/23 07:00 IMPRESSION: 1. No evidence of a pneumothorax. 2. Small bilateral pleural effusions. 3. Bibasilar atelectasis versus infiltrates. 4. Cardiomegaly. 5. Mild ascites in the partially visualized upper abdomen. 6. Cholelithiasis. Electronically Signed: Ming Escobar DO at 8:04 EDT ,
--- NOTE | 2023-03-13 13:12 | CASEMGMT ---
Addendum entered by Mary Mayer 03/13/23 16:17: CRISTIAN REDDY [place] [facility] [place] Setup. RN CM sent clinical information requested through [employer]. CM will continue to follow this patient and plan for a safe discharge. Original Note: CRISTIAN REDDY updated by hospitalist that patient would like HHC at discharge. Hospitalist also updated RN MAUREEN that patient may benefit from trilogy unit at discharge. CRISTIAN REDDY [place] [facility] [place] see if patient would qualify for trilogy unit, awaiting call back. CRISTIAN REDDY in to patient's room to inquire about HHC. A list of HHC providers including quality and resource use data and consistent with the patient?s preferred geographical region, medical needs, and insurance network were provided from the [employer] Guide. would like to review list with family and follow-up tomorrow. CM will continue to follow this patient and plan for a safe discharge.
[2023-03-13 14:17] LABS: Pathologist Comment/Body Fluid Reviewed
[2023-03-13 17:00] LABS: Bedside Glucose 140 mg/dL (74-106)
[2023-03-13 22:18] LABS: Bedside Glucose 179 mg/dL (74-106)
[2023-03-14] VITALS (7 sets, daily range): BP systolic 109–133; BP diastolic 76–79; PULSE 86–90; RESP 16; TEMP 36.7–36.9; O2SAT 86–96; BMI 25.6
[2023-03-14 06:06] LABS: Absolute Lymphocyte Count 1.18 X10^3/uL (0.83-4.51); Absolute Neutrophil Count 4.9 X10^3/uL (2.0-7.7); Basophil# 0.03 X10^3/uL; Basophil% 0.4 % (0-1); Eosinophil# 0.22 X10^3/uL; Hematocrit 32.5 % (40-54); Hemoglobin 9.9 g/dL (13.0-16.5); Lymphocyte # 1.18 X10^3/ul (0.83-4.51); Lymphocyte % 16.1 % (19-41); Mean Corp Hgb Conc 30.5 g/dL (32-36); Mean Corpuscular Hgb 27.8 pg (27.0-32.0); Mean Corpuscular Volume 91.3 fL (80-94); Mean Platelet Vol. 11.3 fl (6.2-12.0); Monocyte# 0.95 X10^3/uL; Monocyte% 12.9 % (0-10); NRBC Flagged by Analyzer 0 % (0-5); Neutrophil # 4.93 X10^3/uL (2.7-7.7); Neutrophil % 67.2 % (47-70); Platelet Count 273 K/mm3 (150-450); RBC Distribution Width CV 17.2 % (11.6-14.6); RBC Distribution Width SD 57.5 fl (35.1-43.9); Red Blood Count 3.56 M/mm3 (4.6-6.2); White Blood Count 7.3 K/mm3 (4.4-11.0)
[2023-03-14 06:46] LABS: Phosphorus 3.2 mg/dL (2.5-4.9)
[2023-03-14 06:51] LABS: ALB/GLOB Ratio 0.4 RATIO (0.9-2.4); AST(SGOT) 14 U/L (15-37); Alanine Aminotransfer ALT/SGPT 10 U/L (16-61); Alkaline Phosphatase 74 U/L (45-117); Anion Gap 2 (5-15); BUN 22 mg/dL (7-18); Calcium,Total 8.3 mg/dL (8.5-10.1); Chloride 92 mmol/L (98-107); Creatinine, Serum 0.96 mg/dL (0.70-1.30); EST Glomerular Filtration Rate 82 mL/min (>60); Est Glom Filt Rate - Afr Amer 99 mL/min (>60); Estimated Creatinine Clearance 75.22 ml/min; Globulin 5.6 g/dL (2.2-4.2); Glucose 133 mg/dL (74-106); Magnesium 1.9 mg/dL (1.6-2.6); Potassium 3.6 mmol/L (3.5-5.1); Protein, Total 7.6 g/dL (6.4-8.2); Sodium Level 135 mmol/L (136-145)
[2023-03-14] MEDS: Ipratropium/Albuterol Sulfate 3 ML AMPUL.NEB INHALATION ×2 (06:54→13:03)
[2023-03-14 07:09] LABS: Bedside Glucose 142 mg/dL (74-106)
[2023-03-14] MEDS: Potassium Chloride Oral Tablet 20 MEQ PO (08:26)
[2023-03-14] MEDS: Enoxaparin 40 MG/0.4 ML Syringe SC (08:27)
[2023-03-14] MEDS: dilTIAZem CD 120 MG Capsule PO (08:27)
[2023-03-14] MEDS: Furosemide 40 MG Tablet PO (08:27)
[2023-03-14] MEDS: Pantoprazole Sodium 40 MG Tablet PO (08:27)
[2023-03-14] MEDS: Insulin Lispro 100 UNIT/ML INSULN.PEN SC (11:46)
[2023-03-14 12:17] LABS: Bedside Glucose 199 mg/dL (74-106)
--- NOTE | 2023-03-14 12:36 | CASEMGMT ---
CRISTIAN REDDY Follow-up: Met with pt and pt's at bedside. Discussed home health preference in provider and their first choice is [facility]. Referral called to [facility], Jaqueline and voicemail message left with referral information. Will follow-up on Thursday, 03/16 for acceptance. Also discussed need for home O2 and pt and agreeable with [facility] to provide. Also confirmed they do have access to a generator for concentrator use and explained concentrator and O2 tanks will be provided. Pt states his sons are more knowledgeable and will be able to assist them with this set-up. Informed that [employer] company driver will also be able to assist with set-up and explain equipement. Madina Barton RN CM
--- NOTE | 2023-03-14 12:59 | NURSING ---
[facility] notified of need for [place]. [place] [facility] [place]
--- NOTE | 2023-03-14 14:05 | PCM.DC.SUM ---
Providers Date of Admission: 03/09/23 Date of Discharge: 03/14/23 Primary Care Physician: Dr. Dariana Vera MD Consultations 03/12/23 20:02 Consult: Infectious Disease Routine Consulting Provider: Chilango Deleon Reason for Consult: PNA EMERGENT Consult: No MD Notified: Yes Date Notified: 03/13/23 Time Notified: 06:45 Method of Notification: Answering Service Reason For Visit: CHF EXACERBATION, BL EFFUSIONS Diagnosis Discharge Diagnosis (1) Acute hypercapnic respiratory failure: Status: Acute Code(s): J96.02 - Acute respiratory failure with hypercapnia (2) Haemophilus influenzae pneumonia: Status: Acute Code(s): J14 - Pneumonia due to Hemophilus influenzae (3) Streptococcal pneumonia: Status: Acute Code(s): J15.4 - Pneumonia due to other streptococci Medications at Discharge Home Medications clopidogrel 75 mg tablet (Plavix) 75 mg PO DAILY anti platelet 04/02/20 pantoprazole 40 mg tablet,delayed release 40 mg PO DAILY reflux 04/02/20 metformin 500 mg tablet 500 mg PO BID diabetes 10/16/22 potassium chloride 10 mEq capsule,extended release 20 meq (2 x 10 mEq) PO DAILY supplement #180 caps 01/12/23 amoxicillin 875 mg-potassium clavulanate 125 mg tablet 1 tab PO BID #10 tabs 03/14/23 diltiazem HCl 120 mg capsule,extended release 24 hr 120 mg PO DAILY #0 caps 03/14/23 furosemide 40 mg tablet 40 mg PO BID edema #60 tabs 03/14/23 guaifenesin 1,200 mg tablet, extended release 12 hr (Mucus-ER MAX) 1,200 mg PO BID #60 tabs 03/14/23 Hospital Course Summary of Care Provided Hospital Course: Mr. Salamanca is a 73-year-old white male who presented to the emergency department at [facility] on 03/09/2023 with to 2 to 3-week history of increasing shortness of breath that was worse with exertion as well as orthopnea, PND, intermittent chest tightness, and increased sputum production that was yellow in color. The patient denied fever or chills on presentation. He denied sick contacts at the time of admission. Vital signs the emergency department showed T97.8, heart rate 91, BP 111/68, respiratory rate 22, and he was initially 89% upon room air however desaturated to 72% on room air improving to 94% on 3 L nasal cannula. CBC was overall unremarkable. An ABG was obtained and showed hypoxia but no significant CO2 retention and a normal pH at 7.4. BMP showed hyponatremia the sodium of 131 and hypochloremia with a chloride of 94 a serum bicarb of 34, and a BUN and creatinine of 26 and 1.30. Troponin was 31 and his BNP was elevated at 536. Chest x-ray showed a moderate left pleural effusion and a left lower lobe consolidation as well as a small right pleural effusion. EKG showed chronic atrial fibrillation with no evidence of acute ischemia. He was admitted to the telemetry floor and placed on Lasix for diuresis. His Plavix was held in the event that thoracentesis would need to be performed for his pleural effusion. On the day after admission he reported his breathing was slightly better however he felt that his legs were still considerably swollen and he was weaker than typical. His and his daughter both reported that his physical activity had decreased over the last several months. He has been sleeping in bed a good portion of the time at home which is overall not new. Family does state he is been diagnosed with sleep apnea in 2009 and not treated and they state that he is always had issues with sleep. He was found initially to have an alpha hemolytic strep which cultures were then changed to strep pneumo. This was actually resistant organism and he was transitioned from ceftriaxone to Levaquin further culture results showed haemophilus influenza as well. On 03/12/2023 he became extremely somnolent in the afternoon and an ABG was obtained and he was found to have respiratory acidosis due to acute on chronic hypercapnia. Patient was placed on BiPAP and is ABG was checked 2 hours later. His acute hypercapnia had resolved and pH had normalized however he remained somnolent. With his ongoing somnolence I got an ammonia level which was only slightly elevated at 41 and did not explain his somnolence and a CT of the head which was unremarkable. Very shortly after he awoke and was appropriate was able to eat dinner. He remained more awake. I was concerned that possibly the Levaquin made him sleepy so we transitioned him to Teflaro and consulted infectious disease. Infectious disease physician saw him yesterday and reviewed the sensitivities for both strep pneumo and haemophilus influenza and transitioned him to Unasyn and recommended we discharge him on Augmentin to complete a 7-day course of antibiotics. His respiratory status improved as did his overall functional status. Unfortunately, his pleural effusion was persistent and we got a thoracentesis performed on 03/12/2023 for 640 cc removal of fluid. It was transudative in nature and I suspect there is related to his heart failure. We diuresed him to the point of worsening contraction alkalosis and then he was transitioned back to his home Lasix which was 40 mg p.o. twice daily. He was taking this as needed but at discharge we have scheduled this 40 mg p.o. twice daily scheduled. He had some intermittent tachycardia with A-fib and he was maintained on his home Cardizem. We did give him 1 dose of digoxin however as his clinical status improved his heart rates improved as well and he was rate controlled at the time of discharge on his decreased dose of Cardizem from his previous cardiology visit. With his diagnosis of sleep apnea previously I did recommend that he possibly be evaluated for trilogy. He will think about this further and case management is going to contact him on Thursday to discuss this further as well as set up home health care. He was able to be discharged home in stable condition with home health care to be set up early next week on 03/14/2023. We sent prescriptions for Mucinex and for Augmentin for another 5 days. I have asked that he follow-up with his primary care physician next week and that he call and make an appointment with his wrist closer to be seen within the next month. Discharge diagnoses: Acute respiratory failure-resolved acute metabolic/toxic encephalopathy secondary to hypercapnia-resolved Acute hypoxia-multifactorial Transudative left pleural effusion Strep pneumo pneumonia Haemophilus influenza pneumonia Chronic atrial fibrillation Debility Anemia Hyponatremia-resolved Acute decompensated heart failure with preserved ejection fraction-resolved Aortic valve stenosis status post TAVR Fatigue COPD DM-2 History of esophageal cancer GERD CKD stage II [facility] Physical Exam Const alert, oriented x3, no apparent distress, average body habitus and well nourished Constitutional Narrative: Older white male, walking down the hallway, appears older than stated age, at side, comfortable, nontoxic General Appearance: cooperative, comfortable, well kempt and well developed Orientation / Consciousness: awake, oriented to person, oriented to place and oriented to time Exam Limitations: no limitations HEENT normocephalic, head/scalp atraumatic, hearing grossly normal bilaterally, nasal mucous membranes and turbinates normal and moist oral mucous membranes HEENT Narrative: dentition poor, mallampati 3, no thrush Eyes PERRL, EOMs intact bilaterally and conjunctivae normal Eyes Narrative: Conjunctiva are pale bilaterally mildly, no scleral icterus Neck full ROM, no lymphadenopathy and supple Neck Narrative: Trachea midline, no rate event Resp normal respiratory effort, no retractions and no use of accessory muscles Resp Narrative: Diminished bilaterally, cough is rhonchorous, no adventitious sounds noted today Auscultation: Negative for crackles, rhonchi or wheezes Cardio regular rate, S1 normal heart sound, S2 normal heart sound, no murmurs, no rub, no gallops, no clicks and peripheral pulses 2+ throughout; Negative for regular rhythm Cardio Narrative: Irregularly irregular rhythm with normal rate GI normal to inspection, nondistended, normoactive bowel sounds, soft to palpation and non-tender Extremity normal to inspection Extremity Narrative: Trace bilateral lower extremity pitting edema, no cyanosis or clubbing Skin no rashes or lesions noted, no wounds, skin turgor normal, no jaundice, no petechiae and no mottling Neuro oriented x3, CN's II-XII intact bilaterally, moves all extremities and no focal motor deficits Neuro Narrative: Place weakness but patient ambulating through the halls with a walker and did well Speech: speech normal Psych mental status grossly normal and affect normal Psych Narrative: Eye contact is good and patient interacts normally Weight / BMI Weight Weight: 85.6 kg Body Mass Index (BMI) 25.6 ABG / Lab / Microbiology Data 03/14/23 05:55 03/14/23 05:55 Laboratory: Laboratory Results - last 24 hr 03/12/23 : Fl Pathologist Comment Reviewed 03/13/23 16:39: POC Glucose 140 H 03/13/23 21:28: POC Glucose 179 H 03/14/23 05:55: WBC 7.3, RBC 3.56 L, Hgb 9.9 L, Hct 32.5 L, MCV 91.3, MCH 27.8, MCHC 30.5 L, RDW Std Deviation 57.5 H, RDW Coeff of Rachell 17.2 H, Plt Count 273, MPV 11.3, Immature Gran % (Auto) 0.400, Neut % (Auto) 67.2, Lymph % (Auto) 16.1 L, [place] % (Auto) 12.9 H, Eos % (Auto) 3.0, Baso % (Auto) 0.4, Absolute Neuts (auto) 4.9, Absolute Lymphs (auto) 1.18, Nucleated RBC % 0, Sodium 135 L, Potassium 3.6, Chloride 92 L, Carbon Dioxide 41.0 H, Anion Gap 2 L, BUN 22 H, Creatinine 0.96, Estim Creat Clear Calc 75.22, Est GFR (MDRD) Af Amer 99, Est GFR (MDRD) Non-Af 82, BUN/Creatinine Ratio 23.0 H, Glucose 133 H, Calcium 8.3 L, Phosphorus 3.2, Magnesium 1.9, Total Bilirubin 0.70, AST 14 L, ALT 10 L, Alkaline Phosphatase 74, Total Protein 7.6, Albumin 2.0 L, Globulin 5.6 H, Albumin/Globulin Ratio 0.4 L 03/14/23 06:41: POC Glucose 142 H 03/14/23 11:43: POC Glucose 199 H Microbiology: Microbiology 03/12/23 Unknown Fluid - Thoracentesis Fluid Gram Stain - Final 03/12/23 Unknown Fluid - Thoracentesis Fluid Body Fluid Culture - Preliminary No growth-Final to follow 03/12/23 Unknown Fluid - Thoracentesis Fluid Anaerobic Culture - Preliminary No growth in 48 hours. 03/13/23 Unknown Stool Stool Occult Blood (SIDDHARTHA) - Final 03/09/23 22:35 Sputum, Expectorated/Coughed Gram Stain - Final 03/09/23 22:35 Sputum, Expectorated/Coughed Respiratory Culture - Final Streptococcus pneumoniae Haemophilus influenzae 03/09/23 22:35 Mucosa - Nasopharyngeal Respiratory Panel (PCR) - Final 03/09/23 22:17 Urine, Clean Catch Streptococcus pneumoniae Antigen (M - Final 03/09/23 22:17 Urine, Clean Catch Legionella Antigen - Final 03/09/23 17:38 Nasal Secretion SARS-CoV-2 Antigen (Rapid) - Final D/C Instructions Discharge Diet: Low fat / Low cholesterol, 1800 Calorie Control Diet, 8 Cup Fluid Restriction and 2000 mg Sodium Diet Discharge Activity: Return to Normal Activity Meaningful Use Info Meaningful Use Diagnoses (Choose all that apply): None applicable Discharge Plan Admission Admit Date/Time: 03/09/23 20:35 Attending Provider: Sweta Camacho Primary Care Provider: Dariana Vera Consulting Providers: Casandra Lucia; Chad Iraheta; Chilango Deleon Instructions Patient Instructions: GLENNY RN Thoracentesis Dc Additional Instructions / Restrictions: 1. Please wear 2 L oxygen at all times until seen by a doctor in this has been discontinued 2. Case management will call on Thursday to set up a time for home health to start as outpatient Discharge Orders/Prescriptions Prescriptions: New diltiazem HCl 120 mg Capsule,Extended Release 24hr 120 mg PO DAILY Qty: 0 0RF Mucus-ER MAX 1,200 mg tablet extended release 12hr 1,200 mg PO BID Qty: 60 0RF amoxicillin-pot clavulanate 875-125 mg tablet 1 tab PO BID Qty: 10 0RF Continued metformin 500 mg tablet 500 mg PO BID clopidogrel [Plavix] 75 mg tablet 75 mg PO DAILY pantoprazole 40 mg tablet,delayed release (DR/EC) 40 mg PO DAILY potassium chloride 10 mEq capsule, extended release 20 meq PO DAILY Qty: 180 1RF Changed furosemide 40 mg tablet 40 mg PO BID Qty: 60 1RF Referrals / Follow Up: Isidoro Cordoba MD [Med Staff - Active Staff] - Within 1 Month Dariana Vera MD [Primary Care Provider] - Within 1 Week (Call Thursday for an appt) Disposition Disposition (needs filled in before D/C Order can be placed): Home Health Service Charges/Coding Visit Charges Inpatient E&M: 22228 Disch Hosp >30min
--- NOTE | 2023-03-16 09:57 | CASEMGMT ---
CRISTIAN REDDY Follow-up: Call received from Jaqueline with [facility]. Pt has been accepted with a SOC date planned for 03/17/23. Call placed to pt's listed phone number and voicemail left per pt's request with this information. Jaqueline also notified that [facility] will need to leave a voicemail when calling to set up visit times. Plan: [facility] for SN, PT/OT SOC 03/17/23 Madina Barton RN CM
== END 2023-03-14 16:33 | disposition home health service (06) | DRG 291 ==
LOC: ED 19:47 → PCU 20:57
PROVIDERS: Hospitalist; Admitting Provider Family Medicine; Emergency Provider Emergency Medicine; PCP Internal Medicine; Visit Provider Internal Medicine
DX: I13.0 Hypertensive heart and chronic kidney disease with heart failure and stage 1 through stage 4 chronic kidney disease, or unspecified chronic kidney disease (principal); I50.33 Acute on chronic diastolic (congestive) heart failure; J96.01 Acute respiratory failure with hypoxia; G92.8 Other toxic encephalopathy; J14 Pneumonia due to Hemophilus influenzae; J13 Pneumonia due to Streptococcus pneumoniae; J96.02 Acute respiratory failure with hypercapnia; J44.0 Chronic obstructive pulmonary disease with (acute) lower respiratory infection; E87.1 Hypo-osmolality and hyponatremia; I48.20 Chronic atrial fibrillation, unspecified; I27.20 Pulmonary hypertension, unspecified; E11.40 Type 2 diabetes mellitus with diabetic neuropathy, unspecified; E11.22 Type 2 diabetes mellitus with diabetic chronic kidney disease; I35.0 Nonrheumatic aortic (valve) stenosis; D64.9 Anemia, unspecified; G43.709 Chronic migraine without aura, not intractable, without status migrainosus; E78.5 Hyperlipidemia, unspecified; F17.210 Nicotine dependence, cigarettes, uncomplicated; G47.33 Obstructive sleep apnea (adult) (pediatric); I25.10 Atherosclerotic heart disease of native coronary artery without angina pectoris; N18.2 Chronic kidney disease, stage 2 (mild); E87.8 Other disorders of electrolyte and fluid balance, not elsewhere classified; K21.9 Gastro-esophageal reflux disease without esophagitis; Z79.02 Long term (current) use of antithrombotics/antiplatelets; Z79.84 Long term (current) use of oral hypoglycemic drugs; Z20.822 Contact with and (suspected) exposure to COVID-19; Z66 Do not resuscitate; Z79.899 Other long term (current) drug therapy; Z85.01 Personal history of malignant neoplasm of esophagus; Z92.3 Personal history of irradiation; Z95.2 Presence of prosthetic heart valve
CPT/HCPCS: 32555; 36415; 36600; 70450; 71045; 71046; 71250; 80048; 80053; 80061; 80076; 82140; 82274; 82803; 82945; 82962; 83615; 83735; 83880; 84100; 84145; 84157; 84443; 84484; 85018; 85025; 87040; 87070; 87075; 87077; 87186; 87205; 87449; 87633; 87811; 88108; 88305; 88313; 89050; 93005; 94002; 94003; 94640; 94668; 94762; 97110; 97162; 97166; 97530; 97535; 97802; 99285; 99406; J7050; A4216; J0295; J0712; J1940

== ENCOUNTER → 2023-03-18 | Outpatient (CLI) | payer OTHER, SELFPAY ==
--- NOTE | 2023-03-18 11:52 | RAD_ITS ---
STUDY: X-RAY CHEST REASON FOR EXAM: Male, 73 years old. Pleural effusion TECHNIQUE: PA and lateral views of the chest. COMPARISON: Comparison is made with prior study dated March 12, 2023. FINDINGS: Increasing pleural parenchymal changes at the left lung base. Stable small right pleural effusion with mild increased markings at the lung bases. Normal size heart. Normal mediastinum and ines. Normal visualized pulmonary arteries. There is atherosclerotic calcification of the aortic arch with tortuosity. There are diffuse degenerative changes of the visualized thoracic spine. Normal visualized ribs, clavicles, and shoulders. There is no demonstrated abnormality of the visualized soft tissue structures of the upper abdomen. RAD/Chest PA and Lateral IMPRESSION: Increasing left pleural effusion and left basilar atelectasis. Electronically Signed: Richie Weir MD at 12:51 EDT ,
[2023-03-18 12:33] LABS: Absolute Lymphocyte Count 1.32 X10^3/uL (0.83-4.51); Absolute Neutrophil Count 5.4 X10^3/uL (2.0-7.7); Basophil# 0.07 X10^3/uL; Basophil% 0.8 % (0-1); Eosinophil# 0.54 X10^3/uL; Eosinophils% 6.5 % (0-5); Hemoglobin 10.8 g/dL (13.0-16.5); Lymphocyte # 1.32 X10^3/ul (0.83-4.51); Lymphocyte % 15.8 % (19-41); Mean Corp Hgb Conc 29.2 g/dL (32-36); Mean Corpuscular Hgb 27.8 pg (27.0-32.0); Mean Corpuscular Volume 95.1 fL (80-94); Mean Platelet Vol. 11.7 fl (6.2-12.0); Monocyte# 0.97 X10^3/uL; Monocyte% 11.6 % (0-10); NRBC Flagged by Analyzer 0 % (0-5); Neutrophil # 5.42 X10^3/uL (2.7-7.7); Neutrophil % 64.8 % (47-70); Platelet Count 268 K/mm3 (150-450); RBC Distribution Width CV 17.2 % (11.6-14.6); Red Blood Count 3.89 M/mm3 (4.6-6.2); White Blood Count 8.4 K/mm3 (4.4-11.0)
[2023-03-18 12:55] LABS: BNP,B-Type NATRIURETIC PEPTIDE 502.7 pg/mL (0-100)
[2023-03-18 13:08] LABS: ALB/GLOB Ratio 0.4 RATIO (0.9-2.4); AST(SGOT) 25 U/L (15-37); Alanine Aminotransfer ALT/SGPT 14 U/L (16-61); Albumin, Serum 2.4 g/dL (3.2-5.0); Alkaline Phosphatase 92 U/L (45-117); Anion Gap 1 (5-15); BUN 17 mg/dL (7-18); BUN/Creat Ratio 17.2 RATIO (10-20); Calcium,Total 8.7 mg/dL (8.5-10.1); Chloride 91 mmol/L (98-107); Creatinine, Serum 0.99 mg/dL (0.70-1.30); EST Glomerular Filtration Rate 79 mL/min (>60); Est Glom Filt Rate - Afr Amer 96 mL/min (>60); Globulin 6.2 g/dL (2.2-4.2); Glucose 142 mg/dL (74-106); Magnesium 1.9 mg/dL (1.6-2.6); Potassium 4.3 mmol/L (3.5-5.1); Protein, Total 8.6 g/dL (6.4-8.2); Sodium Level 133 mmol/L (136-145)
== END | disposition home or self-care (01) ==
LOC: LAB 11:26
PROVIDERS: PCP Internal Medicine; Referring Provider Internal Medicine; Visit Provider Internal Medicine
DX: J96.02 Acute respiratory failure with hypercapnia (principal); I50.9 Heart failure, unspecified; I48.20 Chronic atrial fibrillation, unspecified; J90 Pleural effusion, not elsewhere classified; G92.8 Other toxic encephalopathy
CPT/HCPCS: 36415; 71046; 80053; 83735; 83880; 85025